=== PATIENT | female | born 1995 | race Caucasian/White ===

== ENCOUNTER 2019-06-18 16:18 | Emergency (ER) | payer BC, OTHER, SELFPAY ==
[2019-06-18 16:37] VITALS: BP 113/62; PULSE 92; RESP 18; TEMP 36.6; O2SAT 98
--- NOTE | 2019-06-18 17:06 | ED.GENADUL_ITS ---
Discharge Plan Disposition Patient Disposition: HOME Condition: Stable Discharge Details Chief Complaint: EyeProblem Clinical Impression: Stye Primary Care Provider: Lauri Tavarez ED Provider: Sury Young Discharge Instructions Instructions: Jameel (ED) Additional Instructions: Apply half-inch ribbon to the inside of the left lower eyelid 4 times daily for the next 5 days. Apply warm compresses to the left eye several times daily for 10 minutes at a time. Avoid any eye make-up to the left eye while symptoms still present. [facility] in [place] tomorrow morning to schedule follow-up appointment for reevaluation. Return to the emergency department if you develop any worsening or new concerning symptoms such as fever, headache or any worsening visual changes. Stand Alone Forms: Work Release Discharge Data Discharge Date/Time-TO BE ENTERED AT DEPARTURE: 06/18/19 18:35 Discharge Physician: Sury Young Medical Decision Making 23-year-old female who presents with left lower eyelid itching and irritation for the past 2 days. Also admits to tearing and blurry vision. Left eye 20/40. Right eye 20/25. She denies contacts or glasses. She denies any known injury, foreign body sensation, fever, headache, neck pain or pain within the eye. There appears to be a stye to the left lower eyelid with surrounding erythema on external aspect. No periorbital cellulitis, orbital cellulitis, fluctuance or induration. Eye itself appears normal to inspection with PERRLA, EOMI. No focal deficits. Will place erythromycin ointment within the left inner eyelid. She is instructed on warm compresses, avoiding make-up while symptoms present and to call [facility] tomorrow for follow-up appointment. She is advised to return here with any worsening or concerning symptoms. Medical Records Medical records reviewed: Yes I reviewed the patient's medical records. HPI General Mode of arrival: ambulatory . Date/Time Provider Initiated Documentation: 06/18/19 16:42 . Limitations to Documentation: no limitations . Information obtained by: patient . HPI Narrative: Patient is a 23-year-old female who presents with left lower eyelid itching and irritation for the past 2 days. She also admits to tearing and blurry vision. She denies wearing contacts and glasses. She denies known injury to the eye, fever, new make-up, soaps, lotions, detergents, shampoo, meds or any new exposures. She states initially it started with itching and now has become more irritation and tearing. She denies any headache or neck pain. Related Data Allergies Allergy/AdvReac Type Severity Reaction Status Date / Time No Known Drug Allergies Allergy Unverified 06/18/19 16:41 Penicillins AdvReac weird Unverified 06/18/19 16:46 feeling General Stated Complaint: EyeProblem JENNIFER: 3 Review of Systems Review of Systems ROS Unobtainable: All systems reviewed & are unremarkable except as noted in HPI and below Constitutional Constitutional: Reports as per HPI, Denies chills and Denies fever(s) Eyes Eyes: Reports blurry vision, Denies diplopia, Denies eye discharge, Reports irritation, Reports itchy eyes, Denies loss of peripheral vision, Reports eye pain, Denies seeing flashes, Denies photophobia and Denies spots in vision ENT Ears, Nose, Mouth, and Throat: Denies dizziness, Denies sore throat and Denies throat swelling Cardiovascular Cardiovascular: Denies chest pain and Denies dyspnea Respiratory Respiratory: Denies cough and Denies dyspnea Gastrointestinal Gastrointestinal: Denies abdominal pain, Denies diarrhea and Denies vomiting Genitourinary Genitourinary: Denies hematuria and Denies dysuria Musculoskeletal Musculoskeletal: Denies back pain and Denies numbness Integumentary/Breasts Skin/Breast: Denies lesions and Denies rash Neurologic Neurologic: Denies dizziness, Denies focal weakness and Denies numbness Allergic/Immunologic Allergic/Immunologic: Reports itchy eyes and Denies throat swelling [facility] Medical History GERD (gastroesophageal reflux disease) (Chronic) Josh-Schlatter's disease (Acute) Surgical History H/O section (Chronic) Social History Smoking/Tobacco Use Status: Current every day Alcohol Intake: never Drug use: Never Do you feel safe at home: Yes Do you feel safe in your relationship?: Yes Exam Const General: cooperative, healthy appearing and no acute distress HENMT Head: normal to inspection Ears: hearing grossly normal bilaterally and external ears normal General nose exam: external nose normal Face and sinus: normal facial exam Mouth: oral mucosae normal Eyes General: appearance normal, both eyes and all related structures Conjunctivae: conjunctival abnormality left conjunctival injection localized ( Left lower) Pupils: PERRL EOM: EOM intact bilaterally Eyes/upper lids images: 1. 3x3mm raised whitish papule located on inner lower eyelid with eversion. There is external erythema and edema. No open wounds, discharge. There is minimal conjunctival injection and tearing noted. No obvious foreign bodies noted. Neck Neck: normal visual inspection Resp Effort & Inspection: normal respiratory effort and able to speak in complete sentences Cardio Rate: regular rate Skin Rashes: no rashes Neuro General: alert, awake and oriented x3 Motor: muscle tone normal throughout Extrem General: normal to inspection and full ROM Psych Appearance: grossly normal Affect: normal affect Course Vital Signs Vital signs: Vital Signs Temperature 97.9 F 06/18/19 16:37 Pulse 92 H 06/18/19 16:37 Respiratory Rate 18 06/18/19 16:37 Blood Pressure 113/62 06/18/19 16:37 Pulse Oximetry 98 06/18/19 16:37 Temperature 97.9 F 06/18/19 16:37 Temperature Source Temporal Artery Scan 06/18/19 16:37 Pulse 92 H 06/18/19 16:37 Respiratory Rate 18 06/18/19 16:37 Respiratory Effort Non-Labored 06/18/19 16:41 Blood Pressure 113/62 06/18/19 16:37 Blood Pressure Position Sitting 06/18/19 16:37 Pulse Oximetry 98 06/18/19 16:37 Oxygen Delivery Method Room Air 06/18/19 16:37 Oxygen Flow Rate 0 06/18/19 16:37 Pain Level 5 06/18/19 16:37
[2019-06-18] MEDS: Erythromycin Ophth Oint 3.5 GM TUBE (18:29)
== END 2019-06-18 18:35 | disposition home or self-care (01) ==
PROVIDERS: Emergency Provider Physician Assistant; PCP Specialist/Technologist Athletic Trainer
DX: H00.015 Hordeolum externum left lower eyelid (principal)
CPT/HCPCS: 99283

== ENCOUNTER 2019-08-07 11:51 | Outpatient (REF) | payer BC, SELFPAY ==
[2019-08-07 21:56] LABS: Abs Immature Grans 0.02 k/cumm (0.0-0.09); Absolute Basophil Count 0.02 k/cumm (0.0-0.2); Absolute Eosinophil Count 0.05 k/cumm (0.0-0.7); Absolute Lymphocyte Count 2.29 k/cumm (1.2-3.4); Absolute Monocyte Count 0.64 k/cumm (0.11-0.7); Basophils % 0.3; Eosinophils % 0.6; HCT 43.9 % (36.0-46.0); HGB 14.8 g/dL (12.0-15.5); Immature Grans % 0.3; Lymphocytes % 28.9; Mean Corp. HGB Concentration 33.7 g/dL (32.0-36.0); Mean Corpuscular Hemoglobin 29.5 pg (27.0-33.0); Mean Corpuscular Volume 87.5 fL (80-95); Mean Platelet Volume 12.8 fL (8.0-11.0); Monocytes % 8.1; Neutrophils % 61.8; Platelet Count 164 x1000/uL (130-400); RBC 5.02 m/cumm (4.00-5.20); RBC Distribution Width 13.2 % (11.7-14.6); White Blood Cell Count 7.92 k/cumm (4.4-10.8)
[2019-08-07 22:18] LABS: ALT 29 U/L (14-59); AST 13 U/L (15-37); Albumin 4.2 g/dL (3.4-5.0); Alkaline Phosphatase 71 U/L (46-116); Anion Gap 8.3 mmol/L (3-11); BUN 13 mg/dL (7-18); Bilirubin, Total 0.2 mg/dL (0.2-1.0); CO2 27.7 mmol/L (21.0-32.0); Calcium 9.7 mg/dL (8.5-10.1); Chloride 102 mmol/L (98-107); Glucose 76 mg/dL (70-100); LDL CHOLESTEROL 138 mg/dL (<100); Potassium 4.4 mmol/L (3.5-5.1); Sodium 138 mmol/L (136-145); TSH (W/Ref FT4) 1.47 uIU/mL (0.36-3.74)
== END 2019-08-07 12:11 ==
LOC: NCHCN 11:51
PROVIDERS: PCP Specialist/Technologist Athletic Trainer; Visit Provider Specialist/Technologist Athletic Trainer
DX: Z00.00 Encounter for general adult medical examination without abnormal findings (principal); F39 Unspecified mood [affective] disorder; Z79.899 Other long term (current) drug therapy
CPT/HCPCS: 80053; 83721; 84443; 85025

== ENCOUNTER 2019-08-30 02:27 | Emergency (ER) | payer OTHER, SELFPAY ==
[2019-08-30 02:31] VITALS: BP 117/70; PULSE 92; RESP 16; TEMP 36.7; O2SAT 96
--- NOTE | 2019-08-30 02:37 | ED.GENADUL_ITS ---
Discharge Plan Disposition Patient Disposition: HOME Condition: Good Discharge Details Chief Complaint: Nk/Back Pain Clinical Impression: Low back strain Primary Care Provider: Lauri Tavarez ED Provider: Casey Rivers Meds and New Rx's Prescriptions: Continued buspirone 10 mg Tablet 10 mg PO BID RF: 0 cyclobenzaprine 10 mg Tablet 10 mg PO PRN PRNRF: 0 Discharge Instructions Instructions: Low Back Strain (ED) Additional Instructions: Activity as tolerated but avoid lifting, bending, twisting. Gentle stretching and use of ice over the next couple of days. Cyclobenzaprine if needed. Ibuprofen 600 mg every 6-8 hours for discomfort. Follow-up with occupational health. Return to ED if difficulty ambulating, weakness, numbness, bladder or bowel dysfunction. Stand Alone Forms: Work Release Referrals: Occupational Medicine [Outside] Medical Decision Making Patient's pain is better than when initial event occured. She is neurologically intact. Pain is left lower lumbar region and is probably muscular related. She has Flexeril to use for back spasm. Discussed ibuprofen, gentle stretching and follow-up with occupational health. Will limit work until follow-up and should avoid lifting, bending, twisting. Return to ED for difficulty ambulating, weakness, numbness, bladder or bowel dysfunction. HPI General Mode of arrival: ambulatory . Date/Time Provider Initiated Documentation: 08/30/19 02:36 . Limitations to Documentation: no limitations . Information obtained by: patient and RN notes reviewed . HPI Narrative: Patient presents to ED with left lower back pain. 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 She then went to push the bed back in and felt sudden pain in the left lower back radiating down the lateral thigh to the knee. Describes the pain as burning numbing. Was given 800 of ibuprofen. Has prior history of back spasms. Presents now for evaluation. Pain is better at this point. She has no numbness or weakness or difficulty ambulating. Related Data Home Medications Medication Instructions Recorded Confirmed buspirone 10 mg PO BID 08/30/19 08/30/19 cyclobenzaprine 10 mg PO PRN PRN 08/30/19 08/30/19 Allergies Allergy/AdvReac Type Severity Reaction Status Date / Time Penicillins AdvReac Intermediate Other (See Unverified 08/30/19 02:36 Comment) General Stated Complaint: Nk/Back Pain JENNIFER: 4 Review of Systems Narrative: As documented in HPI otherwise negative as below. Const: no fever, chills, weakness GI: no abdominal pain, nausea, vomiting, diarrhea Neuro: no headache, numbness, focal weakness, confusion PFSH Medical History Anxiety (Chronic) GERD (gastroesophageal reflux disease) (Chronic) Josh-Schlatter's disease (Acute) Surgical History H/O section (Chronic) Social History Smoking/Tobacco Use Status: Current every day Alcohol Intake: never Drug use: Never Do you feel safe at home: Yes Do you feel safe in your relationship?: Yes Exam Narrative Exam Narrative: Vitals: Afebrile. Normal heart rate and blood pressure. Normal room air pulse ox. Const: Obese female in NAD. HEENT: NC/AT. Normal facial exam. Eyes: Normal conjunctiva and sclera. Neck: Supple. Trachea midline. Lungs: Normal respiratory effort. Back: Tender left lower lumbar area. No obvious spasm. No spine tenderness. Good ROM. Neuro: A+O x 3. 5 out of 5 strength in lower extremities. Normal sensation. Normal gait. Ext: No C/C/E. Skin: Warm and dry without rash. Course Vital Signs Vital signs: Vital Signs Temperature 98.1 F 08/30/19 02:31 Pulse 92 H 08/30/19 02:31 Respiratory Rate 16 08/30/19 02:31 Blood Pressure 117/70 08/30/19 02:31 Pulse Oximetry 96 08/30/19 02:31 Temperature 98.1 F 08/30/19 02:31 Pulse 92 H 08/30/19 02:31 Respiratory Rate 16 08/30/19 02:31 Blood Pressure 117/70 08/30/19 02:31 Pulse Oximetry 96 08/30/19 02:31 Oxygen Delivery Method Room Air 08/30/19 02:31 Oxygen Flow Rate 0 08/30/19 02:31 Pain Level 6 08/30/19 02:31
== END 2019-08-30 02:59 | disposition home or self-care (01) ==
PROVIDERS: Emergency Provider Emergency Medicine; PCP Specialist/Technologist Athletic Trainer
DX: S39.012A Strain of muscle, fascia and tendon of lower back, initial encounter (principal); X50.0XXA Overexertion from strenuous movement or load, initial encounter; Y99.0 Civilian activity done for income or pay
CPT/HCPCS: 99282

== ENCOUNTER 2019-10-23 10:57 | Emergency (ER) | payer BC, OTHER, SELFPAY ==
[2019-10-23 11:00] VITALS: BP 123/76; PULSE 109; RESP 18; TEMP 36.7; O2SAT 96
--- NOTE | 2019-10-23 11:13 | ED.GENADUL_ITS ---
Discharge Plan Disposition Patient Disposition: HOME Condition: Stable Discharge Details Chief Complaint: Orthopedic Clinical Impression: Fracture of toe, Contusion of right foot Primary Care Provider: Lauri Tavarez ED Provider: Alisha Lovett Home Meds and New Rx's Prescriptions: Continued buspirone 10 mg Tablet 10 mg PO BID RF: 0 cyclobenzaprine 10 mg Tablet 10 mg PO PRN PRNRF: 0 ibuprofen 600 mg Tablet 600 mg PO PRN PRNRF: 0 Discharge Instructions Instructions: Crutch Instructions (ED), Toe Fracture (ED), Foot Contusion (ED) Additional Instructions: Please return immediately to the emergency department if you develop any new or worsening symptoms, if your condition does not improve as expected, or if you become otherwise concerned. It is extremely important that you call soon as possible to make an appointment to be seen in follow-up for this visit by your primary care doctor and an orthopedic surgeon. Referrals: Lauri Tavarez [Primary Care Provider] - Dennys Ortiz MD [ [facility] STAFF PHYSICIAN] - Medical Decision Making Isabel Julian is a 24-year-old woman with a history of GERD, anxiety who presented to the emergency department with right toe and foot pain that began last night when her niece fell on her foot. On exam patient is very well and nontoxic appearing. There is ecchymosis and edema of the right fifth toe. There is tenderness of toes 3 through 5 and the lateral aspect of the right fo ot. Toes/foot neurovascularly intact. No skin wound. Exam/history is not consistent with neurologic or vascular injury, DVT, pathology of the ankle or lower leg, other acute emergent life/limb threatening process. Concern for contusion versus fracture of toes/foot. Plan for x-ray. X-ray shows nondisplaced fracture of the phalanx of the fifth toe. Plan for postop shoe, crutches, orthopedic follow-up. Patient declines to have daniela taping. I had a lengthy discussion with Patient regarding return to emergency department precautions, home care, and importance of outpatient follow-up. Pt v erbalizes understanding of the plan and is amenable. Patient discharged to home with clear plan for outpatient follow-up. All questions were answered. Disposition decision was made weighing the risks and benefits of hospitalization versus outpatient treatment, the risk for further decompensation, and the patient's wishes. Medical Records Medical records reviewed: Yes I reviewed the patient's medical records. Imaging Data Radiologic Study: Attestation: I personally reviewed and interpreted this imaging study as follows: Radiologist's impression: Exam(s) a RAD:XR foot RT complete EXAM: XR FOOT RT COMPLETE INDICATION: trauma, lateral pain foot and toe pain (3-5). COMPARISON: No exams were available for comparison TECHNIQUE: 2D digital imaging was performed. FINDINGS: There is a nondisplaced fracture seen through the middle phalanx of the little toe which extends to the articular surface. The distal phalanx appears intact. IMPRESSION: Nondisplaced fracture of the middle phalanx of the 5th toe. HPI General Mode of arrival: ambulatory . Date/Time Provider Initiated Documentation: 10/23/19 11:08 . Limitations to Documentation: no limitations . Information obtained by: patient, RN notes reviewed and old records reviewed . HPI Narrative: Isabel Julian is a 24-year-old woman with a history of GERD, anxiety presenting to the emergency department with right-sided toe and foot pain. Patient reports that last night she was playing with her young niece, when her knees fell and landed on the lateral aspect of her right foot. Patient reports that she has had pain in the foot since the injury. She has been walking but with significant pain with weightbearing. Patient reports pain is in the lateral aspect of the right foot, also in the third through fifth toes. She reports worst pain is in the fifth toe. Pain does not radiate. She denies any other pain or injury. She denies any other symptoms, no recent illness. No other pain, no numbness, no weakness, no skin wound. Has been eating and drinking as usual. Related Data Home Medications Medication Instructions Recorded Confirmed buspirone 10 mg PO BID 08/30/19 10/23/19 cyclobenzaprine 10 mg PO PRN PRN 08/30/19 10/23/19 ibuprofen 600 mg PO PRN PRN 10/23/19 10/23/19 Allergies Allergy/AdvReac Type Severity Reaction Status Date / Time Penicillins AdvReac Intermediate Other (See Unverified 10/23/19 11:19 Comment) General Stated Complaint: Orthopedic JENNIFER: 3 Review of Systems Narrative: Constitutional: denies fevers Eyes: denies eye pain ENT: denies ear pain, dental pain, sore throat Cardiovascular: denies chest pain Respiratory: denies SOB, cough GI: denies abdominal pain, vomiting, diarrhea : denies flank pain MSK: denies back pain, neck pain, reports right foot and toe pain as per HPI Skin: denies rash Neuro: denies headaches, numbness, weakness [facility] Medical History Anxiety (Chronic) GERD (gastroesophageal reflux disease) (Chronic) Josh-Schlatter's disease (Acute) Social History Smoking/Tobacco Use Status: Current every day Alcohol Intake: never Drug use: Never Seatbelt use: sometimes Do you feel safe at home: Yes Do you feel safe in your relationship?: Yes Exam Narrative Exam Narrative: Constitutional: well and [id number], pleasant, conversing normally HENT: head atraumatic/normocephalic/normal inspection, mucous membranes moist Eyes: conjunctiva normal, sclera normal, pupils 3mm b/l Neck: no stridor, normal ROM, trachea midline Chest: normal inspection Resp: normal work of breathing Cardio: normal rate, normal rhythm Skin: warm, dry, normal color, no rash Neuro: alert, not altered, grossly non-focal, normal tone Ext: no edema, right lateral rounding machine tender to palpation, right MTP 3 through 5 tender to palpation, toes 3 through 5 tender to palpation diffusely, right fifth toe with medial ecchymosis, mild edema. Range of motion of toes limited secondary to pain. Brisk cap refill, normal sensation all toes. Normal exam of toes 1 and 2, heel, medial/plantar/dorsal aspects of foot, ankle, lower leg. No edema of the ankle or lower leg. DP pulse intact. Psych: normal mood, normal affect, normal behavior Course Vital Signs Vital signs: Vital Signs Temperature 36.7 C 10/23/19 11:00 Pulse 109 H 10/23/19 11:00 Respiratory Rate 18 10/23/19 11:00 Blood Pressure 123/76 10/23/19 11:00 Pulse Oximetry 96 10/23/19 11:00 Temperature 36.7 C 10/23/19 11:00 Temperature Source Temporal Artery Scan 10/23/19 11:00 Pulse 109 H 10/23/19 11:00 Respiratory Rate 18 10/23/19 11:00 Blood Pressure 123/76 10/23/19 11:00 Pulse Oximetry 96 10/23/19 11:00 Oxygen Delivery Method Room Air 10/23/19 11:00 Oxygen Flow Rate 0 10/23/19 11:00 Pain Level 10 10/23/19 11:00
--- NOTE | 2019-10-23 11:45 | DI.RAD_ITS ---
EXAM: XR FOOT RT COMPLETE INDICATION: trauma, lateral pain foot and toe pain (3-5). COMPARISON: No exams were available for comparison TECHNIQUE: 2D digital imaging was performed. FINDINGS: There is a nondisplaced fracture seen through the middle phalanx of the little toe which extends to t he articular surface. The distal phalanx appears intact. IMPRESSION: Nondisplaced fracture of the middle phalanx of the 5th toe.
[2019-10-23 12:44] VITALS: BP 98/66; PULSE 90; TEMP 36.6; O2SAT 99
== END 2019-10-23 12:46 | disposition home or self-care (01) ==
LOC: ER 13:00
PROVIDERS: Emergency Provider Student in an Organized Health Care Education/Training Program; PCP Specialist/Technologist Athletic Trainer
DX: S92.524A Nondisplaced fracture of middle phalanx of right lesser toe(s), initial encounter for closed fracture (principal); W50.0XXA Accidental hit or strike by another person, initial encounter
CPT/HCPCS: 28510; 73630; E0114

== ENCOUNTER 2020-06-13 14:30 | Outpatient (REF) | payer BC, OTHER, SELFPAY ==
[2020-06-13 21:05] LABS: Abs Immature Grans 0.03 10^3/uL (0.0-0.06); Absolute Basophil Count 0.03 10^3/uL (0.0-0.2); Absolute Eosinophil Count 0.09 10^3/uL (0.0-0.7); Absolute Lymphocyte Count 2.49 10^3/uL (1.2-3.4); Absolute Monocyte Count 0.69 10^3/uL (0.1-0.8); Basophils % 0.3; HGB 15.1 g/dL (11.2-15.7); Immature Grans % 0.3; Lymphocytes % 28.5; MCH 29.8 pg (27.0-33.0); MCHC 32.8 % (32.0-36.0); MCV 90.7 fL (80-95); MPV 13.5 fL (8.0-11.0); Monocytes % 7.9; Nucleated RBC 0 %; Platelet Count 137 10^3/uL (130-400); RBC 5.07 10^6/uL (3.93-5.22); RDW 12.5 % (11.7-14.6); RDW-SD 41.1 fL; WBC 8.73 10^3/uL (4.4-10.8)
[2020-06-13 21:38] LABS: ALT 25 U/L (14-59); AST 12 U/L (15-37); Albumin 4.1 g/dL (3.4-5.0); Alkaline Phosphatase 59 U/L (46-116); Anion Gap 8.1 mmol/L (3-11); BUN 9 mg/dL (7-18); Bilirubin, Total 0.2 mg/dL (0.2-1.0); CO2 25.9 mmol/L (21.0-32.0); CREATININE 0.84 mg/dL (0.55-1.02); Calcium 8.9 mg/dL (8.5-10.1); Chloride 105 mmol/L (98-107); Ferritin 47 ng/mL (8-252); Glucose 84 mg/dL (74-106); Sodium 139 mmol/L (136-145); Total Protein 7.4 g/dL (6.4-8.2)
[2020-06-13 22:04] LABS: Iron 80 ug/dL (50-170)
== END 2020-06-13 14:50 ==
LOC: NCHCN 14:30
PROVIDERS: PCP Specialist/Technologist Athletic Trainer; Visit Provider Family Medicine
DX: F41.9 Anxiety disorder, unspecified (principal); J45.20 Mild intermittent asthma, uncomplicated
CPT/HCPCS: 80053; 82728; 83540; 85025

== ENCOUNTER 2020-10-31 16:25 | Emergency (ER) | payer SELFPAY ==
[2020-10-31 16:30] VITALS: BP 114/74; PULSE 93; TEMP 36.9; O2SAT 97
--- NOTE | 2020-10-31 16:45 | DI.RAD_ITS ---
EXAM: XR PORTABLE CHEST AP CLINICAL HISTORY: PUI, Cough TECHNIQUE: 2D digital imaging was performed. COMPARISON: No exams were available for comparison FINDINGS: MEDIASTINUM: Normal. HEART: Normal. PULMONARY VASCULATURE: Normal. LUNGS: Clear. PLEURAL SPACE: No pleural effusion or pneumothorax. BONE:Within normal limits for the patient's age. OTHER FINDINGS:Normal. IMPRESSION: No acute pulmonary findings. DATA REPOSITORY: RADIATION DOSE DELIVERED:
--- NOTE | 2020-10-31 16:54 | W.ED.GENAD ---
Discharge Plan Disposition Patient Disposition: HOME Condition: Stable Discharge Details Clinical Impression: Sialadenitis Primary Care Provider: Melody Koenig ED Provider: Sarai Dueñas Home Meds and New Rx's Prescriptions: New clindamycin HCl 300 mg capsule 300 mg PO BID 7 Days Qty: 14 RF: 0 No Action buspirone 10 mg Tablet 10 mg PO BID RF: 0 ibuprofen 600 mg Tablet 600 mg PO PRN PRNRF: 0 Discharge Instructions Instructions: Sialoadenitis (ED) Additional Instructions: Gargle with warm salt water, suck on hard sour candies such as lemon heads. Warm compresses and massage may help. Take antibiotic as prescribed. Follow up with primary care provider in 3-5 days. Return to ED sooner if any worsening or concerns. Increase oral fluids. Please take Tylenol or Ibuprofen with food every 4-6 hours as needed for pain and swelling. You are placed on a care management follow-up list to assist you with obtaining a PCP and follow-up appointment they can also help with any kind of financial concerns you may have. Your chest x-ray was within normal limits today. Covid is pending please quarantine until results is back. Stand Alone Forms: PENDING COVID-19 TESTING, Work Release Referrals: Melody Koenig [Primary Care Provider] - Discharge Data Discharge Date/Time-TO BE ENTERED AT DEPARTURE: 10/31/20 18:13 Medical Decision Making At this time we will do a [id number] rapid strep swab and Covid send out. Chest x-ray to rule out pneumonia or other cardiopulmonary abnormality. POC rapid strep negative, Covid is pending. Imaging protocol: XR of the chest Views: 1 view. COMPARISON: No relevant prior studies available. FINDINGS: Lungs: The lungs are clear without opacity or suspicious parenchymal finding. Pleural spaces: Unremarkable. No pleural effusion. No pneumothorax. Heart/Mediastinum: Unremarkable. No cardiomegaly. Bones/joints: Unremarkable. IMPRESSION: No acute cardiopulmonary process. Thank you for allowing us to participate in the care of your patient. Dictated and Authenticated by: Yocasta Fry MD At this time findings are most consistent with sialadenitis versus parotiditis. Clindamycin was given here in department and prescribed for 10 days. Urinalysis shows moderate leukocytes greater than 50 WBCs however many epithelial cells and moderate trichomonas. It is not indicated for culture at this time due to squamous contamination. Call made to patient and prescription given for Flagyl due to trichomonas noted in urine. 1928: Spoke with patient and discussed trichomonas result, sexual abstinence until partner tested and treated, and re-encouraged follow up with PCP. Chidi/chlamydia requested to be added onto Urine in lab, howver this is not possible with the current specimen. Flagyl 2gm PO and Azithromycin 1 gm PO called in to [facility] in [facility]. HPI General Mode of arrival: ambulatory. Date/Time Provider Initiated Documentation: 10/31/20 16:33. Limitations to Documentation: no limitations. Information obtained by: patient. HPI Narrative: 25-year-old female presents to the ED with chief complaint of left-sided throat, jaw, ear pain and productive cough for the last 3 days. She denies any fever. She states that she has some sinus trouble. She is a daily smoker and is concerned for possible Covid. 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 On initial exam she has some submandibular swelling and tenderness noted, no erythema, she also has any swelling noted to the bottom of her tongue, no dental abscess visualized nor any palpable area of fluctuance noted. Posterior oropharynx, erythemic, no exudate noted. She also has some anterior cervical lymphadenopathy to palpation. Lungs are clear to auscultation bilaterally. Related Data Home Medications Medication Instructions Recorded Confirmed buspirone 10 mg PO BID 08/30/19 10/31/20 ibuprofen 600 mg PO PRN PRN 10/23/19 10/31/20 clindamycin HCl 300 mg PO BID 7 Days #14 cap 10/31/20 Previous Rx's Medication Instructions Recorded clindamycin HCl 300 mg PO BID 7 Days #14 cap 10/31/20 Allergies Allergy/AdvReac Type Severity Reaction Status Date / Time Penicillins AdvReac Intermediate Other (See Unverified 10/31/20 17:03 Comment) General Stated Complaint: Sorethroat JENNIFER: 3 Review of Systems Narrative: Constitutional: Negative for weight loss, alert and oriented, well groomed, obese body habitus, appears comfortable. Denies fever. HEENT: Denies trauma, blurry vision, trouble swallowing. Positive sinus headache, runny nose, left-sided ear pain and left sided throat pain x2 weeks. Chest: Denies chest pain, palpitations, irregular rhythm, hypertension. Respiratory: Denies Shortness of breath, hemoptysis. Positive cough productive of green or yellow sputum. Patient is a smoker. GI: Denies abdominal pain, nausea, vomiting, diarrhea, constipation. : Denies dysuria, hematuria, flank pain, rectal bleeding. Neuro: Denies dizziness, blurry vision, weakness, syncope, headache or facial numbness. Hematologic: Denies easy bruising, intolerance to heat or cold, hair loss. [facility] Medical History Anxiety GERD (gastroesophageal reflux disease) Coulters-Schlatter's disease Surgical History H/O section Social History Smoking/Tobacco Use Status: Current every day Tobacco Type: cigarettes Smoking risk assessment performed?: Yes Alcohol Intake: never Drug use: Never Substance use type: does not use Seatbelt use: sometimes Do you feel safe at home: Yes Do you feel safe in your relationship?: Yes Exam Narrative Exam Narrative: Constitutional: Alert and oriented x3. Appears stated age. Obese body habitus. Head: Normocephalic, no trauma. Eyes: Pupils PERRLA, Red reflex noted, EOM's intact. Eyelids symmetrical without lesions, discharge, or swelling. ENT: Bilateral TM's WNL, External ear normal to inspection, no mastoid TTP, swelling, or erythema, Nasal turbinates boggy, no nasal discharge. Poor dentition, Posterior pharynx erythemic, no exudate. Does have some left-sided submandibular swelling tender to palpation, does have some anterior cervical lymphadenopathy with palpation. No dental abscess visualized, no area of fluctuance palpated, does have some subungual swelling noted to the left side and is tender to palpation. Chest: RRR, Normal S1, S2, distal pulses intact. Resp: Lungs clear to auscultation bilaterally, no wheezes, rales, or rhonchi. Musculoskeletal: Normal gait, 5/5 strength to all four extremities. Skin: No suspicious rashes or lesions. Capillary refill less than 2 sec. Neurologic: Cranial nerves II-XII intact. Alert and oriented x 3. DTR's intact. Hematologic/Lymphatic: No ecchymosis. [facility] Face images: 1. Swelling, tenderness with palpation. Mouth: oral mucosa abnormal other (Mild subungual tenderness and swelling with palpation) Course Vital Signs Vital signs: Vital Signs Temperature 36.9 C 10/31/20 16:30 Pulse 93 H 10/31/20 16:30 Blood Pressure 114/74 10/31/20 16:30 Pulse Oximetry 97 10/31/20 16:30 Temperature 36.9 C 10/31/20 16:30 Temperature Source Temporal Artery Scan 10/31/20 16:30 Pulse 93 H 10/31/20 16:30 Respiratory Effort Non-Labored 10/31/20 16:35 Blood Pressure 114/74 10/31/20 16:30 Blood Pressure Position Sitting 10/31/20 16:30 Pulse Oximetry 97 10/31/20 16:30 Oxygen Delivery Method Room Air 10/31/20 16:30 Oxygen Flow Rate 0 10/31/20 16:30 Pain Level 6 10/31/20 16:30
[2020-10-31 17:13] LABS: Bilirubin Negative (Negative); Blood Negative (Negative); Clarity Sl Cloudy (Clear); Glucose Negative (Negative); Ketones Negative (Negative); Leukocyte Esterase Moderate (Negative); Nitrite Negative (Negative); Specific Gravity >= 1.030 (1.005-1.025); Urobilinogen 0.2 EU/dL (Up TO 0.2); pH 5.5 (5-8)
--- NOTE | 2020-10-31 17:38 | DI.VRAD_ITS ---
PROCEDURE INFORMATION: Exam: XR Chest, 1 View Exam date and time: 10/31/2020 4:55 PM Age: 25 years old Clinical indication: Cough TECHNIQUE: Imaging protocol: XR of the chest Views: 1 view. COMPARISON: No relevant prior studies available. FINDINGS: Lungs: The lungs are clear without opacity or suspicious parenchymal finding. Pleural spaces: Unremarkable. No pleural effusion. No pneumothorax. Heart/Mediastinum: Unremarkable. No cardiomegaly. Bones/joints: Unremarkable. IMPRESSION: No acute cardiopulmonary process. Dictated and Authenticated by: Yocasta Fry MD. Ordering:NUBIA Moon MD
[2020-10-31 17:43] LABS: Epithelial Cells Many HPF (Negative); RBC Negative HPF (0-2); WBC >50 HPF (0-5)
[2020-10-31 17:44] LABS: Bacteria Many HPF (Negative); C & S Indicated? No/Sq. Contamination; Casts Negative LPF (Negative); Crystals Negative HPF (Negative); Mucus Moderate (Negative)
[2020-10-31] MEDS: Acetaminophen 500 MG TAB PO (18:08)
[2020-10-31] MEDS: Clindamycin 300 MG CAP 600 MG PO (18:09)
[2020-10-31] MEDS: Clindamycin 300 MG CAP PO (18:09)
[2020-11-01 18:22] LABS: COVID-19 RT-PCR UVMMC Result Negative (Negative)
--- NOTE | 2020-11-04 18:09 | NUR.NOTE ---
patient called aned negative covid results relayed to her after verification of her identity.
== END 2020-10-31 18:13 | disposition home or self-care (01) ==
PROVIDERS: Emergency Provider Registered Nurse Emergency; PCP Family Medicine
DX: K11.21 Acute sialoadenitis (principal); R05 Cough; F17.210 Nicotine dependence, cigarettes, uncomplicated; Z03.818 Encounter for observation for suspected exposure to other biological agents ruled out
CPT/HCPCS: 81025; 87880; 99283; U0003; 71045; 81003; 81015; 87081; 99284

== ENCOUNTER 2020-11-15 12:41 | Outpatient (REF) | payer SELFPAY ==
--- NOTE | 2020-11-15 11:10 | PAPFT_PTH ---
PATIENT: Isabel Prakash LOC: [facility] U#:[id number] AGE/SX: 25/F ROOM: RE11/15/[address]: Melody Koenig : 1995 BED: DIS: 11/15/2020 SPEC #: [id number] RECD: 11/15/20 12:54 STATUS: DALJIT REStephanie #: [id number] YOANA: 11/15/20 11:[address]: Melody Koenig DEPT: [facility] Cytology RECD BY: Yue Dalal Tissues: 1 - CX/ENDOCX FOR PAP SMEARS Procedures: PAP THIN PREP/UVM Screening Comments: [id number] (CHLAMYDIA/GC)
--- OUTSIDE RECORDS SUMMARY | 2020-11-15 12:45 | XMS_ITS ---
:1995 [facility] Address [address] [place] [address] Care Team Providers Name Role Phone Lab or DI, Non [facility] Unavailable Unavailable PROBLEMS Unknown Problems ALLERGIES Substance Reaction Event Type Date Status black flies Unknown Non Drug Allergy Jun, Active ENCOUNTERS Encounter Location Date Diagnosis [address] Jul, [place] [address] OR[facility] OFF[facility] [address] [place] [address] Jun, Wrist pain, right [address]25[address] [place] [address] [address] [place] [address] Apr, [place] [address] IMMUNIZATIONS No Known Immunizations SOCIAL HISTORY Never Assessed REASON FOR REFERRAL FUNCTIONAL STATUS PLAN OF CARE VITAL SIGNS MEDICATIONS Medication Instructions Dosage Frequency Start End Duration Statu s Date Date HydrOXYzine HCl 25 Orally every 8 1 tablet as 8h 30 day(s) Active MG hrs needed Fluticasone Nasally Once a 1 spray in 24h 30 day(s) Active Propionate 50 day each MCG/ACT nostril Depo-Provera 150 1 ml 30 day(s) Activ e MG/ML Medrol 4 MG as directed Jun, Melatonin 5 MG Orally Once a 2 tablets 24h A ctive day at bedtime Cyclobenzaprine Orally Once a 1 tablet at 24h 30 day (s) Active HCl 10 MG day bedtime as needed Ibuprofen 800 MG Orally Three 1 tablet 8h A ctive times a day with food or milk as needed ZyrTEC Allergy 10 Orally Once a 1 tablet 24h 30 day( s) Active MG day PROCEDURES No Known procedures RESULTS Name Result Date Reference Range ELHAM (Antinuclear Abs) 2020-08-14 ANTINUCLEAR ANTIBODIES, IFA Positive HOMOGENEOUS PATTERN 1:80 NUCLEOLAR PATTERN SPECKLED PATTERN CENTROMERE PATTERN CYCLIC CITRULLINATED PEPTIDE (CCP3) IGG ABS 2019 CCP ANTIBODIES IGG/IGA 21 0-19 CRP-INFLAM 2020-08-14 CRP <0.2 0.0-0.9 LYME IGG & IGM ABS W/REFLEX 2020-08-14 Lyme IgG/IgM Ab <0.91 0.00-0.90 Lyme Disease Ab, Quant, IgM <0.80 0.00 -0.79 RHEUMATOID FACTOR TITER 2020-08-14 RA LATEX TURBID. <10.0 0.0-13.9 SED RATE 2020-08-14 ESR 22 0-30 MULTIPLE LABS 2020-06-[address] Boucher, carpal tunel syndrome (R) referral done, Pt states during 07/09 ED visit for headache that ED DR stated pt has wrist tendonitis-sd, possible infection, no response to letter inactivating, and addressed Insurance Providers [facility] Member Patient Patient Patient Patient Patient Subscriber Subscriber Subscriber Group Insurance Plan Plan Plan Plan ID Relationship Address Phone Name Date of ID Name Date of No Type Insurance Insurance Insurance Coverage to Subscriber Address Phone Name Dates SELF PAY [address] SELF PAY self DENISE 1995 [place] [id number] INSURANCE UNITED [address] [place] [id number] HEALTHCARE [id number] [facility] [id number] SELF PAY [address] SELF PAY self DENISE 1995 [place] [id number] INS MEDICAL (GENERAL) HISTORY Type Description Date Medical History Anxiety Medical History PTSD Medical History Fatigue Surgical History No Surgical history information
[2020-11-18 15:28] LABS: Chlamydia Result Negative (Negative); GC Result Negative (Negative)
== END 2020-11-15 12:42 | disposition home or self-care (01) ==
LOC: NCHCN 12:41
PROVIDERS: PCP Family Medicine; Visit Provider Family Medicine
DX: Z11.3 Encounter for screening for infections with a predominantly sexual mode of transmission (principal); Z12.4 Encounter for screening for malignant neoplasm of cervix; Z00.00 Encounter for general adult medical examination without abnormal findings; Z01.419 Encounter for gynecological examination (general) (routine) without abnormal findings
CPT/HCPCS: 87491; 87591; 88142

== ENCOUNTER 2021-05-28 12:11 | Outpatient (REF) | payer OTHER, SELFPAY ==
[2021-05-28 14:11] LABS: Abs Immature Grans 0.03 10^3/uL (0.0-0.06); Absolute Basophil Count 0.03 10^3/uL (0.0-0.2); Absolute Eosinophil Count 0.05 10^3/uL (0.0-0.7); Absolute Lymphocyte Count 2.17 10^3/uL (1.2-3.4); Absolute Monocyte Count 0.58 10^3/uL (0.1-0.8); Absolute Neutrophil Count 4.26 10^3/uL (1.2-6.7); Basophils % 0.4; Eosinophils % 0.7; HCT 44.5 % (36.0-46.0); HGB 14.8 g/dL (11.2-15.7); Immature Grans % 0.4; Lymphocytes % 30.5; MCHC 33.3 % (32.0-36.0); MCV 90.1 fL (80-95); MPV 12.9 fL (8.0-11.0); Monocytes % 8.1; Neutrophils % 59.9; Nucleated RBC 0 %; Platelet Count 128 10^3/uL (130-400); RBC 4.94 10^6/uL (3.93-5.22); RDW 12.3 % (11.7-14.6); WBC 7.12 10^3/uL (4.4-10.8)
== END 2021-05-28 12:12 | disposition home or self-care (01) ==
LOC: NCHCN 12:11
PROVIDERS: PCP Family Medicine; Visit Provider Family Medicine
DX: R19.7 Diarrhea, unspecified (principal)
CPT/HCPCS: 85025

== ENCOUNTER 2021-08-29 01:57 | Outpatient (CLI) | payer SELFPAY ==
[2021-08-29 12:35] VITALS: BP 111/70; PULSE 96; RESP 16; TEMP 37.4; O2SAT 97
[2021-08-29] MEDS: Normal Saline Flush 10 ML SYR IVP (12:46)
[2021-08-29] MEDS: Normal Saline 500 ML 30 ML IV (13:10)
[2021-08-29 13:15] VITALS: BP 105/70; PULSE 81; RESP 16; TEMP 37.4; O2SAT 96
[2021-08-29 13:45] VITALS: BP 111/77; PULSE 74; RESP 16; TEMP 38.9; O2SAT 97
[2021-08-29 14:10] VITALS: BP 129/80; PULSE 85; RESP 16; TEMP 37.9; O2SAT 97
== END 2021-08-29 01:58 | disposition home or self-care (01) ==
PROVIDERS: PCP Family Medicine; Visit Provider Family Medicine
DX: U07.1 COVID-19 (principal)
CPT/HCPCS: 96365

== ENCOUNTER 2021-10-20 15:25 | Emergency (ER) | payer SELFPAY ==
[2021-10-20 15:29] VITALS: BP 152/90; PULSE 93; RESP 14; TEMP 36.8; O2SAT 99
--- NOTE | 2021-10-20 15:45 | DI.RAD_ITS ---
Exam(s) XR FOOT RT COMPLETE EXAM: XR FOOT RT COMPLETE CLINICAL HISTORY: rotational injury. TECHNIQUE: 2D digital imaging was performed. COMPARISON: CR XR FOOT RT COMPLETE from 10/23/2019 FINDINGS: No evidence of acute fracture nor diastasis of the Lisfranc joint. The more medial of the 2 hallucis sesamoids is bipartite. No pes planus. No degenerative changes. No osseous lesions nor erosions. No osseous tarsal coalition. IMPRESSION: DATA REPOSITORY: RADIATION DOSE DELIVERED:
--- NOTE | 2021-10-20 15:45 | DI.RAD_ITS ---
Exam(s) XR ANKLE RT COMPLETE EXAM: XR ANKLE RT COMPLETE CLINICAL HISTORY: diffuse pain after rotational injury. TECHNIQUE: 2D digital imaging was performed. COMPARISON: No exams were available for comparison FINDINGS: No fracture or widening of the mortise. Talar dome unremarkable. Malleoli unremarkable. Bone density normal. No osseous lesions. No tarsal coalition IMPRESSION: No fracture evident DATA REPOSITORY: RADIATION DOSE DELIVERED:
[2021-10-20] MEDS: Acetaminophen 500 MG TAB 1000 MG PO (16:08)
[2021-10-20 16:46] VITALS: BP 120/78; PULSE 85; TEMP 37; O2SAT 98
--- NOTE | 2021-10-20 17:09 | ED.GENADUL_ITS ---
Discharge Plan Disposition Patient Disposition: HOME Condition: Good Discharge Details Clinical Impression: Ankle sprain Primary Care Provider: Melody Koenig ED Provider: Dipika Magana Home Meds and New Rx's Prescriptions: Continued ibuprofen 600 mg Tablet 600 mg PO PRN PRNRF: 0 Discharge Instructions Instructions: Ankle Sprain (ED) Additional Instructions: Your imaging is reassuring. There is no evidence of fracture at this time. History is concerning for ankle sprain. Boot temporarily to help with pain. As we discussed, as the pain comes down you may transition to ankle brace. As you have had multiple sprains in the past, I am concerned for weakness and feel that you will benefit from physical therapy. REferral is attached, please call to set up apointment. Encourage rest, ice, elevation. Tylenol and/or Ibuprofen as needed for discomfort. If you develop any new/worsening symptoms please seek care urgently once again. Stand Alone Forms: Physical Therapy Referral Referrals: Melody Koenig [Primary Care Provider] - Discharge Data Discharge Date/Time-TO BE ENTERED AT DEPARTURE: 10/20/21 17:35 Medical Decision Making Patient is a 26 year old female presenting today with c/c of right ankle pain. She states that she suffered two rotational injuries over the weekend. Reports that this has happened several times inthe past, particularly along the contralateral side. states she has typically saught care at another ED forr this. She reports that when she injured herself they were internal rotational events. Has fairly diffuse pain. Denies other injury at the time of the incident. Has not had surgery or suffered fx with this in the past. Typically wears boot and weans out of this at home, has not tried PT or had formal f/u for this per pt report. On exam, patient appears nontoxic. She has no sigifcnat swelling to the left ankle. She is diffusely tender, maximal over lateral malleolus and ATFL. Achilles intact. No pain over the proximal fibula. She is tender into the foot at the 5th metatarsal as well as the midfoot. No swelling, discoloration or ev idence of objective trauma. 2+ distal pulses, sensation intact. No pain on plantar surface. Plan for images, including weighted view of the foot, to evaluate for any bony abnormaltiy of the foot/ankle. Will give APAP for pain, she has already used NSAID. XR reviewed by radiologist. Patiend did need to go back for weighted view as this was initially not completed. FINDINGS: No fracture or widening of the mortise. Talar dome unremarkable. Malleoli unremarkable. Bone density normal. No osseous lesions. No tarsal coalition IMPRESSION: No fracture evident FINDINGS: No evidence of acute fracture nor diastasis of the Lisfranc joint. The more medial of the 2 hallucis sesamoids is bipartite. No pes planus. No degenerative changes. No osseous lesions nor erosions. No osseous tarsal coa lition. Discussed findings with the patient. Encouraged RICE. We discussed options for supportive device in the acute period. I am concerned that her repetative use of the boot may be contributing to the relative weakness of her ankles and frequent reinjury. However, patient reports that other devices have not worked and that she needs a boot. I advised we can do this again but that she should be focusing on strengthening to prevent rreinjury. Will refer to PT and have asked that she discuss this further with her PCP. I also expressed concern for other boot associated discomfort associated with antalgic gait. She does not have boot at home for this side. Return precuations discussed. All of her quesitons and concerns were addressed, she is in agreement with this plan. HPI General Mode of arrival: ambulatory . Date/Time Provider Initiated Documentation: 10/20/21 15:48 . Limitations to Documentation: no limitations . Information obtained by: patient and RN notes reviewed . History of Present Illness 26 year old F presents to the emergency department with the chief complaint of right ankle and foot pain, described as severe, with intensity rated at 8. Quality is described as aching, and is localized to the right and lower extremity. Patient reports no radiation. Patient started experiencing this day(s) (2) and it has been constant. Immobilization imp roves symptom(s), Movement worsens symptoms . Patient notes no other symptoms.. Patient did receive the following treatments prior to arrival, NSAID Related Data Home Medications Medication Instructions Recorded Confirmed ibuprofen 600 mg PO PRN PRN 10/23/19 10/20/21 Allergies Allergy/AdvReac Type Severity Reaction Status Date / Time varicella virus vaccine live Allergy Unverified 10/20/21 15:32 Penicillins AdvReac Intermediate Other (See Unverified 10/20/21 15:32 Comment) General Stated Complaint: Orthopedic JENNIFER: 4 Review of Systems Constitutional Constitutional: Reports as per HPI, Denies chills, Denies fever(s) and Denies weakness Musculoskeletal Musculoskeletal: Reports as per HPI and Denies tingling Integumentary/Breasts Skin/Breast: Reports as per HPI, Denies rash and Denies wounds Neurologic Neurologic: Reports as per HPI, Denies tingling, Denies paresthesias and Denies weakness PFSH All Active Problems (Updated 10/20/21 @ 17:10 by BRIDGETT Ibrahim) Ankle sprain (Acute) Lumbar strain (Acute) Medical History (Updated 10/20/21 @ 17:10 by BRIDGETT Ibrahim) Anxiety GERD (gastroesophageal reflux disease) Josh-Schlatter's disease Surgical History H/O section Social History Smoking/Tobacco Use Status: Current every day Tobacco Type: cigarettes Smoking risk assessment performed?: Yes Alcohol Intake: current Alcohol Intake frequency: holidays/special occasions only Drug use: Never Substance use type: does not use Seatbelt use: sometimes Do you feel safe at home: Yes Do you feel safe in your relationship?: Yes Exam Const General: cooperative, healthy appearing, comfortable, no acute distress, well developed and well groomed Nutritional Appearance: well nourished and obese Orientation: alert and awake Resp Effort & Inspection: normal respiratory effort, able to speak in complete sentences and no respiratory distress Cardio Rate: regular rate Rhythm: regular rhythm Skin General skin exam: no rashes or lesions noted Lesions: no lesions Rashes: no rashes Trauma: no lacerations or abrasions Neuro General: patient alert and patient awake Cognition: normal cognition Speech: speech normal Gait: antalgic Motor: muscle tone normal throughout Sensory Exam: no sensory deficits noted Extrem Left lower extremity: normal to inspection, full ROM, normal capillary refill, no joint enlargement, knee (no pain over the proximal fibula) Details: normal to inspection, lower leg Details: normal to inspection and no edema; no tenderness, no localized swelling, no palpable cords, no ecchymosis and no deformity, ankle Details: normal to inspection, tenderness Location: of the lateral malleolus, of the medial malleolus and of the anterior talofibular ligament; not of the achilles tendon, no edema and normal ROM; no swelling, no warmth, no abrasions, no lacerations, no ecchymosis and achilles tendon exam normal and foot Details: normal capillary refill, tenderness Location: of the mid foot and of the base of the 5th metatarsal, toes with normal ROM, no edema, vascular exam Details: dorsalis pedis pulse present, posterior tibial pulse present and normal capilla ry refill and motor-sensory exam Details: light-touch normal; no unusual warmth, no ecchymosis and no crepitus Psych Appearance: grossly normal and well kempt Mental Status: mental status grossly normal Speech and Movement: speech and movement normal Course Vital Signs Vital signs: Vital Signs Temperature 36.8 C 10/20/21 15:29 Pulse 93 H 10/20/21 15:29 Respiratory Rate 14 10/20/21 15:29 Blood Pressure 152/90 H 10/20/21 15:29 Pulse Oximetry 99 10/20/21 15:29 Temperature 37.0 C 10/20/21 16:46 Temperature Source Tympanic 10/20/21 16:46 Pulse 85 10/20/21 16:46 Respiratory Rate 14 10/20/21 15:29 Respiratory Effort Non-Labored 10/20/21 15:33 Blood Pressure 120/78 10/20/21 16:46 Blood Pressure Position Sitting 10/20/21 15:29 Pulse Oximetry 98 10/20/21 16:46 Oxygen Delivery Method Room Air 10/20/21 16:46 Oxygen Flow Rate 0 10/20/21 16:46 Pain Level 8 10/20/21 16:46 Lab/Test Results Lab/Test Results: POC- Test(urine) Negative PAWSS Have you Been Recently Intoxicated or Drunk Within the Last 30 days?: Yes Have you Ever Experienced Previous Episodes of Alcohol Withdrawal?: No Have you ever Experienced Withdrawal Seizures?: No Have you ever Experienced Delirium Tremens(DT)s?: No Have you ever undergone Alcohol Rehabilitation Treatment (i.e, inpt ot outpatient treatment programs)?: No Have you ever Experienced Blackouts?: No Have you ever Combined Alcohol with other Downers within the last 90 days?: No Have you ever Combined Alcohol with any other Substance of Abuse during the last 90 days?: No Positive Blood Alcohol level on Presentation? [PCS.BAL]: No Evidence of Increased Autonomic Activity (i.e. HR>120, tremor, sweating, agitation, nausea)?: No Result: 1
== END 2021-10-20 17:35 | disposition home or self-care (01) ==
PROVIDERS: Emergency Provider Physician Assistant; PCP Family Medicine
DX: S93.491A Sprain of other ligament of right ankle, initial encounter (principal); X50.1XXA Overexertion from prolonged static or awkward postures, initial encounter
CPT/HCPCS: 29515; 81025; 99284; 73610; 73630; 99283

== ENCOUNTER 2021-11-18 13:46 | Outpatient (REF) | payer SELFPAY ==
[2021-11-18 15:52] LABS: Abs Immature Grans 0.04 10^3/uL (0.0-0.06); Absolute Basophil Count 0.04 10^3/uL (0.0-0.2); Absolute Eosinophil Count 0.06 10^3/uL (0.0-0.7); Absolute Monocyte Count 0.56 10^3/uL (0.1-0.8); Absolute Neutrophil Count 5.94 10^3/uL (1.2-6.7); Basophils % 0.4; Eosinophils % 0.6; HCT 45.9 % (36.0-46.0); HGB 14.9 g/dL (11.2-15.7); Immature Grans % 0.4; Lymphocytes % 28.9; MCH 29.4 pg (27.0-33.0); MCHC 32.5 % (32.0-36.0); MCV 90.7 fL (80-95); MPV 12.6 fL (8.0-11.0); Neutrophils % 63.7; Nucleated RBC 0 %; Platelet Count 171 10^3/uL (130-400); RBC 5.06 10^6/uL (3.93-5.22); RDW 12.4 % (11.7-14.6); RDW-SD 40.9 fL; WBC 9.34 10^3/uL (4.4-10.8)
[2021-11-18 15:57] LABS: ESR 17 mm/hr (0-20)
[2021-11-18 16:24] LABS: ALT 77 U/L (14-59); AST 39 U/L (15-37); Albumin 4.4 g/dL (3.4-5.0); Alkaline Phosphatase 71 U/L (46-116); Anion Gap 9.2 mmol/L (3-11); BUN 12 mg/dL (7-18); Bilirubin, Total 0.2 mg/dL (0.2-1.0); CO2 27.8 mmol/L (21.0-32.0); CREATININE 0.7 mg/dL (0.55-1.02); Calcium 9.2 mg/dL (8.5-10.1); Chloride 103 mmol/L (98-107); Glucose 87 mg/dL (74-106); Sodium 140 mmol/L (136-145); Total Protein 7.8 g/dL (6.4-8.2)
== END 2021-11-18 13:47 | disposition home or self-care (01) ==
LOC: NCHCN 13:46
PROVIDERS: PCP Family Medicine; Visit Provider Family Medicine
DX: R19.7 Diarrhea, unspecified (principal); K92.1 Melena
CPT/HCPCS: 80053; 85652; 85025

== ENCOUNTER 2022-04-30 17:24 | Emergency (ER) | payer SELFPAY ==
[2022-04-30 17:29] VITALS: BP 101/71; PULSE 85; RESP 18; TEMP 37.1; O2SAT 98
--- NOTE | 2022-04-30 19:20 | ED.GENADUL_ITS ---
Discharge Plan Discharge Details Chief Complaint: Sorethroat Primary Care Provider: Melody Koenig ED Provider: Sury Young Home Meds and New Rx's Prescriptions: No Action ibuprofen 600 mg Tablet 600 mg PO PRN PRN HPI General Date/Time Provider Initiated Documentation: 04/30/22 17:46 . Related Data Home Medications Medication Instructions Recorded Confirmed ibuprofen 600 mg tablet 600 mg PO PRN PRN 10/23/19 04/30/22 Allergies Allergy/AdvReac Type Severity Reaction Status Date / Time varicella virus vaccine live Allergy Unverified 04/30/22 17:32 Penicillins AdvReac Intermediate Other (See Unverified 04/30/22 17:32 Comment) General Stated Complaint: Sorethroat JENNIFER: 4 PFSH All Active Problems (Updated 11/20/21 @ 00:04 by NIDHI MOYER) Lumbar strain (Acute) Medical History (Updated 11/20/21 @ 00:04 by NIDHI MOYER) Anxiety GERD (gastroesophageal reflux disease) [place]-Schlatter's disease Surgical History H/O section Social History Smoking/Tobacco Use Status: Current every day Tobacco Type: cigarettes Smoking risk assessment performed?: Yes Alcohol Intake: current Alcohol Intake frequency: holidays/special occasions only Drug use: Never Substance use type: does not use Seatbelt use: sometimes Do you feel safe at home: Yes Do you feel safe in your relationship?: Yes Course Vital Signs Vital signs: Vital Signs Temperature 98.8 F 04/30/22 17:29 Pulse 85 04/30/22 17:29 Respiratory Rate 18 04/30/22 17:29 Blood Pressure 101/71 04/30/22 17:29 Pulse Oximetry 98 04/30/22 17:29 Temperature 98.8 F 04/30/22 17:29 Temperature Source Temporal Artery Scan 04/30/22 17:29 Pulse 85 04/30/22 17:29 Respiratory Rate 18 04/30/22 17:29 Respiratory Effort Non-Labored 04/30/22 17:32 Blood Pressure 101/71 04/30/22 17:29 Blood Pressure Position Sitting 04/30/22 17:29 Pulse Oximetry 98 04/30/22 17:29 Lab/Test Results Lab/Test Results: 04/30/22 18:22 Tonsil - Not Specified Group A Streptococcus Culture - Pending POC Strep Test-NADJA(Rapid) Start: 04/30/22 18:17 Freq: .Rapid Strep Test Status: Active Protocol: Document 04/30/22 18:24 CB (Rec: 04/30/22 18:24 [id number]) Strep test-NADJA(Rapid)-POC POC-Strep test-NADJA (Rapid) Negative POC-Strep test-NADJA (Rapid) Negative
[2022-04-30 20:51] LABS: Source Nasal/Nares
[2022-04-30 20:55] VITALS: BP 98/70; PULSE 88; RESP 18; TEMP 37.1; O2SAT 98
[2022-04-30 21:56] LABS: COVID-19 PCR Negative (Negative)
--- NOTE | 2022-04-30 23:09 | ED.GENADUL_ITS ---
Discharge Plan Disposition Patient Disposition: HOME Condition: Stable Discharge Details Clinical Impression: Acute tonsillitis, Oral thrush Primary Care Provider: Melody Koenig ED Provider: Kaycee Bullock Home Meds and New Rx's Prescriptions: New nystatin 100,000 unit/mL suspension 400,000 unit PO QID 7 Days Qty: 112 0RF Rx Instructions: swish and swallow Continued ibuprofen 600 mg Tablet 600 mg PO PRN PRN Discharge Instructions Instructions: Pharyngitis (ED) Additional Instructions: Use the nystatin as prescribed Follow-up with your primary care physician Take ibuprofen 300 mg every 8 hours with food Take Tylenol milligrams every 4-6 hours We will call you neck several hours here, test is positive, it is negative you will not receive a phone call Discharge Data Discharge Date/Time-TO BE ENTERED AT DEPARTURE: 04/30/22 21:03 Medical Decision Making Patient appears well Strep negative Negative COVID Placed on oral nystatin for home No indication for mononucleosis testing at this time, patient has had symptoms for 24 hours and likely to be positive at this time Should she have persistent symptoms longer than 3 to 4 days, she should have mononucleosis testing Return precautions discussed patient expressed understanding, no evidence of peritonsillar retropharyngeal abscess clinically, maintaining secretions, no trismus Medical Records Medical records reviewed: Yes I reviewed the patient's medical records. Lab Data Lab results reviewed: Yes I reviewed the patient's lab results. HPI General Date/Time Provider Initiated Documentation: 04/30/22 17:46 . HPI Narrative: This 26-year-old female presents with sore throat which started yesterday evening. She is also had some right ear pain. Pain reportedly with swallowing. Was treated with steroid inhaler for suspected bronchitis 2 weeks ago associated use earlier this week. Denies any fever or chills. Has had runny nose. Denies any known sick contacts. Denies chance of . Denies globus sensation. Related Data Home Medications Medication Instructions Recorded Confirmed ibuprofen 600 mg tablet 600 mg PO PRN PRN 10/23/19 04/30/22 nystatin 100,000 unit/mL oral 400,000 unit (4 mL) PO QID 7 days 04/30/22 suspension #112 mL Previous Rx's Medication Instructions Recorded nystatin 100,000 unit/mL oral 400,000 unit (4 mL) PO QID 7 days 04/30/22 suspension #112 mL Allergies Allergy/AdvReac Type Severity Reaction Status Date / Time varicella virus vaccine live Allergy Unverified 04/30/22 17:32 Penicillins AdvReac Intermediate Other (See Unverified 04/30/22 17:32 Comment) General Stated Complaint: Sorethroat JENNIFER: 4 Review of Systems All systems reviewed & are unremarkable except as noted in HPI and below PFSH All Active Problems (Updated 04/30/22 @ 20:46 by BRIDGETT Marc) Acute tonsillitis (Acute) Oral thrush (Acute) Lumbar strain (Acute) Medical History (Updated 04/30/22 @ 20:46 by BRIDGETT Marc) Anxiety GERD (gastroesophageal reflux disease) [place]-Schlatter's disease Surgical History H/O section Social History Smoking/Tobacco Use Status: Current every day Tobacco Type: cigarettes Smoking risk assessment performed?: Yes Alcohol Intake: current Alcohol Intake frequency: holidays/special occasions only Drug use: Never Substance use type: does not use Seatbelt use: sometimes Do you feel safe at home: Yes Do you feel safe in your relationship?: Yes Exam Const General: cooperative, comfortable and no acute distress HENMT Other: Oropharyngeal thrush Tonsillar exudate TMs within normal limits bilaterally Course Vital Signs Vital signs: Vital Signs Temperature 37.1 C 04/30/22 17:29 Pulse 85 04/30/22 17:29 Respiratory Rate 18 04/30/22 17:29 Blood Pressure 101/71 04/30/22 17:29 Pulse Oximetry 98 04/30/22 17:29 Temperature 37.1 C 04/30/22 20:55 Temperature Source Temporal Artery Scan 04/30/22 17:29 Pulse 88 04/30/22 20:55 Respiratory Rate 18 04/30/22 20:55 Respiratory Effort Non-Labored 04/30/22 17:32 Blood Pressure 98/70 L 04/30/22 20:55 Blood Pressure Position Sitting 04/30/22 17:29 Pulse Oximetry 98 04/30/22 20:55 Pain Level 6 04/30/22 20:55 Lab/Test Results Lab/Test Results: 04/30/22 18:22 Tonsil - Not Specified Group A Streptococcus Culture - Pending Laboratory Tests Range/Units 04/30/22 20:45 COVID-19 Source Nasal/Nares SARS-CoV-2 (PCR) (Negative) Negative POC Strep Test-NADJA(Rapid) Start: 04/30/22 18:17 Freq: .Rapid Strep Test Status: Discharge Protocol: Document 04/30/22 18:24 CB (Rec: 04/30/22 18:24 [id number]) Strep test-NADJA(Rapid)-POC POC-Strep test-NADJA (Rapid) Negative POC-Strep test-NADJA (Rapid) Negative
[2022-05-02 12:05] LABS: COVID-19 RT-PCR UVMMC Result Negative (Negative)
--- NOTE | 2022-05-03 09:33 | NUR.NOTE ---
Nursing Note: Called PT and left a message to call back. Covid results are negative.
== END 2022-04-30 21:03 | disposition home or self-care (01) ==
PROVIDERS: Physician Assistant; Emergency Provider Physician Assistant; PCP Family Medicine
DX: J03.90 Acute tonsillitis, unspecified (principal); B37.0 Candidal stomatitis; F17.210 Nicotine dependence, cigarettes, uncomplicated; Z20.822 Contact with and (suspected) exposure to COVID-19
CPT/HCPCS: 87635; 87880; 99283; U0003; 87081

== ENCOUNTER 2022-05-17 10:29 | Emergency (ER) | payer SELFPAY ==
[2022-05-17 10:31] VITALS: BP 125/49; PULSE 90; RESP 18; TEMP 36.8; O2SAT 97
--- NOTE | 2022-05-17 10:45 | DI.RAD_ITS ---
Exam(s) XR LUMBAR SPINE COMPLETE EXAM: XR LUMBAR SPINE COMPLETE CLINICAL HISTORY: pain lower lumbar spine, trauma TECHNIQUE: COMPARISON: CR LUMBAR SPINE AP, LAT from 10/27/2010 FINDINGS: Five views were obtained. The intervertebral disc spaces are well maintained. No evidence of acute fracture or dislocation. No spondylolysis or spondylolisthesis. IMPRESSION: Negative examination of the lumbar spine. RADIATION DOSE DELIVERED: Total DLP
--- NOTE | 2022-05-17 10:47 | ED.GENADUL_ITS ---
Discharge Plan Disposition Patient Disposition: HOME Condition: Stable Discharge Details Clinical Impression: Lumbar strain Primary Care Provider: Melody Koenig ED Provider: Kaycee Bullock Home Meds and New Rx's Prescriptions: New diazepam [Valium] 5 mg tablet 5 mg PO TID PRNQty: 5 0RF Continued ibuprofen 600 mg Tablet 600 mg PO PRN PRN Discharge Instructions Instructions: Low Back Strain (ED) Additional Instructions: Please take ibuprofen 600 mg every 8 hours with food Written you prescription for Valium, this medication is addictive, do not take Flexeril or combine alcohol with medication You should not operate your vehicle for 8 hours after taking it Please take ibuprofen for the next 3 to 5 days with food You may take Tylenol 650 mg every 6 hours as needed for breakthrough pain Please follow-up with your primary care physician or return to the emergency department for reassessment if pain persistent longer than additional 1 week or should he develop changes in bowel or bladder, fever or chills, or with any new or worsening complaints Referrals: Melody Koenig [Primary Care Provider] - Discharge Data Discharge Date/Time-TO BE ENTERED AT DEPARTURE: 05/17/22 11:45 Medical Decision Making pt appears well, no evidence of cauda equina, discitis, or epidural abscess valium for home prn with risk of addiction reviewed neurovascularly intact return precautions discussed and pt expressed understanding recheck with pcp in 2-3 days Medical Records Medical records reviewed: Yes I reviewed the patient's medical records. Lab Data Lab results reviewed: Yes I reviewed the patient's lab results. ECG Data Prior ECG tracings: available for review HPI General Date/Time Provider Initiated Documentation: 05/17/22 10:39 . HPI Narrative: This 26-year-old female presents with lumbar spine pain after backing into a stove while she was walking around her kitchen approximately 2 weeks ago. She states the pain is worsening since that time. She has not taken any [id number] medications. She denies any chance of . She denies any history of illicit drug use. She denies any fever or chills. She has abdominal pain. The pain is exacerbated with movement and she describes it as sharp positional pain. She denies any radiation of the discomfort down her legs. She denies any groin numbness or changes in bowel or bladder. Related Data Home Medications Medication Instructions Recorded Confirmed ibuprofen 600 mg tablet 600 mg PO PRN PRN 10/23/19 05/17/22 diazepam 5 mg tablet (Valium) 5 mg PO TID PRN #5 tabs 05/17/22 Previous Rx's Medication Instructions Recorded diazepam 5 mg tablet (Valium) 5 mg PO TID PRN #5 tabs 05/17/22 Allergies Allergy/AdvReac Type Severity Reaction Status Date / Time varicella virus vaccine live Allergy Unverified 04/30/22 17:32 Penicillins AdvReac Intermediate Other (See Unverified 04/30/22 17:32 Comment) General Stated Complaint: Nk/Back Pain JENNIFER: 4 Review of Systems All systems reviewed & are unremarkable except as noted in HPI and below PFSH All Active Problems (Updated 05/17/22 @ 11:37 by BRIDGETT Marc) Acute tonsillitis (Acute) Oral thrush (Acute) Lumbar strain (Acute) Medical History (Updated 05/17/22 @ 11:37 by BRIDGETT Marc) Anxiety GERD (gastroesophageal reflux disease) [place]-Schlatter's disease Surgical History H/O section Social History Smoking/Tobacco Use Status: Current every day Tobacco Type: cigarettes Smoking risk assessment performed?: Yes Alcohol Intake: current Alcohol Intake frequency: holidays/special occasions only Drug use: Never Substance use type: does not use Seatbelt use: sometimes Do you feel safe at home: Yes Do you feel safe in your relationship?: Yes Exam Const General: cooperative, comfortable and no acute distress Orientation: alert and oriented x3 Resp Effort & Inspection: normal respiratory effort Auscultation: clear to auscultation bilaterally Cardio Rate: regular rate Rhythm: regular rhythm Other: distal pulses intact GI Other: no cva tenderness, no abdominal tenderness Back/Spine/Pelvis Other: mild lumbar paraspinal tenderness Skin General skin exam: no rashes or lesions noted Neuro General: patient alert and patient oriented x3 Other: neg babinski bilaterally, neg slr bilaterally, sensation intact distally Course Vital Signs Vital signs: Vital Signs Temperature 36.8 C 05/17/22 10:31 Pulse 90 05/17/22 10:31 Respiratory Rate 18 05/17/22 10:31 Blood Pressure 125/49 L 05/17/22 10:31 Pulse Oximetry 97 05/17/22 10:31 Temperature 36.8 C 05/17/22 10:31 Temperature Source Temporal Artery Scan 05/17/22 10:31 Pulse 90 05/17/22 10:31 Respiratory Rate 18 05/17/22 10:31 Respiratory Effort Non-Labored 05/17/22 10:37 Blood Pressure 125/49 L 05/17/22 10:31 Blood Pressure Position Sitting 05/17/22 10:31 Pulse Oximetry 97 05/17/22 10:31 Pain Level 6 05/17/22 10:31
--- NOTE | 2022-05-17 11:31 | DI.VRAD_ITS ---
PROCEDURE INFORMATION: Exam: XR Lumbosacral Spine Exam date and time: 05/17/2022 11:08 AM Age: 26 years old Clinical indication: Other: Pain lower lumbar spine, trauma TECHNIQUE: Imaging protocol: Radiologic exam of the lumbosacral spine. Views: 4 or 5 views. COMPARISON: No relevant prior studies available. FINDINGS: Bones/joints: Normal. No acute or chronic fracture. Normal alignment. Disc spaces are preserved. No facet joint hypertrophy. Soft tissues: Unremarkable. IMPRESSION: Normal lumbrosacral spine. Dictated and Authenticated by: Tam Hunt MD. Ordering:LELAND Benoit MD
[2022-05-17] MEDS: diazePAM 5 MG TAB PO (11:37)
== END 2022-05-17 11:45 | disposition home or self-care (01) ==
PROVIDERS: Emergency Provider Physician Assistant; PCP Family Medicine
DX: S39.012A Strain of muscle, fascia and tendon of lower back, initial encounter (principal); F17.210 Nicotine dependence, cigarettes, uncomplicated; X15.0XXA Contact with hot stove (kitchen), initial encounter; Y93.G3 Activity, cooking and baking
CPT/HCPCS: 99283; 72110; 99284

== ENCOUNTER 2022-06-03 17:32 | Emergency (ER) | payer SELFPAY ==
[2022-06-03 17:38] VITALS: BP 123/81; PULSE 105; RESP 16; TEMP 37.5; O2SAT 100
--- NOTE | 2022-06-03 17:57 | ED.GENADUL_ITS ---
Discharge Plan Disposition Patient Disposition: HOME Condition: Stable Discharge Details Clinical Impression: Abdominal bloating Primary Care Provider: Melody Koenig ED Provider: Carl Chan Home Meds and New Rx's Prescriptions: Continued ibuprofen 600 mg Tablet 600 mg PO PRN PRN No Action diazepam [Valium] 5 mg tablet 5 mg PO TID PRNQty: 5 0RF Discharge Instructions Additional Instructions: your blood work including test were unremarkable if symptoms continue in a week return to the emergency department if you feel more ill, have severe worsening pain or persistent vomiting return to the emergency department Medical Decision Making 26 yo female who states she has hx of ibs who comes in with cc of bloating intermittently for the past 3 weeks but constant the last few days. Denies sharp abdomen pain, no vomit or fevers, has had some nausea. Can't think of anything that makes it better or worse. She states she is worried about but has had negative poc hcg tests at home. She arrives stable. She localizes the bloating sensation to the upper abdomen. Abdomen is nondistended, normal bowel sounds. No murpy's sign, miinimal epigastric pain. Suspect food related illness less likely ibs and biliary colic, will check cmp and lipase, do not feel emergent ct indicated at this time. labs unremarkable, patient stable and has no abdominal tenderness on repeat exam. suspect gerd vs gastritis vs ibs, advised to f/u with pcp and return pr ecautions given Differential Diagnosis Differential Diagnosis: food illness, ibs, biliary colic Lab Data Lab results reviewed: Yes I reviewed the patient's lab results. HPI General Mode of arrival: ambulatory . Date/Time Provider Initiated Documentation: 06/03/22 17:35 . Limitations to Documentation: no limitations . Information obtained by: patient . History of Present Illness 26 year old F presents to the emergency department with the chief complaint of bloating, described as moderate, Patient started experiencing this week(s) (3) and it has been constant. No relieving factors improve symptom(s), No exacerbating factors reported . Patient notes no other symptoms.. Patient did receive the following treatments prior to arrival, none Related Data Home Medications Medication Instructions Recorded Confirmed ibuprofen 600 mg tablet 600 mg PO PRN PRN 10/23/19 06/03/22 diazepam 5 mg tablet (Valium) 5 mg PO TID PRN #5 tabs 05/17/22 06/03/22 Previous Rx's Medication Instructions Recorded diazepam 5 mg tablet (Valium) 5 mg PO TID PRN #5 tabs 05/17/22 Allergies Allergy/AdvReac Type Severity Reaction Status Date / Time varicella virus vaccine live Allergy Unverified 06/03/22 17:44 Penicillins AdvReac Intermediate Other (See Unverified 06/03/22 17:44 Comment) General Stated Complaint: GenMedical JENNIFER: 3 Review of Systems All systems reviewed & are unremarkable except as noted in HPI and below Constitutional Constitutional: Denies chills, Denies fever(s) and Denies weakness Cardiovascular Cardiovascular: Denies chest pain and Denies dyspnea Respiratory Respiratory: Denies cough and Denies dyspnea Gastrointestinal Gastrointestinal: Denies vomiting Genitourinary Genitourinary: Denies dysuria Musculoskeletal Musculoskeletal: Denies joint swelling Integumentary/Breasts Skin/Breast: Denies rash Neurologic Neurologic: Denies weakness PFSH All Active Problems (Updated 06/03/22 @ 19:13 by Carl Chan MD) Abdominal bloating (Acute) Lumbar strain (Acute) Medical History (Updated 06/03/22 @ 19:13 by Carl hCan MD) Anxiety GERD (gastroesophageal reflux disease) [place]-Schlatter's disease Surgical History H/O section Social History Smoking/Tobacco Use Status: Current every day Tobacco Type: cigarettes Smoking risk assessment performed?: Yes Alcohol Intake: current Alcohol Intake frequency: holidays/special occasions only Drug use: Never Substance use type: does not use Seatbelt use: sometimes Do you feel safe at home: Yes Do you feel safe in your relationship?: Yes Exam Const General: no acute distress Orientation: alert HENMT Head: normal to inspection Ears: external ears normal General nose exam: external nose normal Mouth: moist mucous membranes Eyes General: appearance normal, both eyes and all related structures Neck Neck: normal visual inspection Resp Effort & Inspection: normal respiratory effort and able to speak in complete sentences Cardio Rate: regular rate GI Palpation: soft and nontender Skin General skin exam: no rashes or lesions noted Neuro General: patient alert and patient oriented x3 Extrem General: normal to inspection Psych Mental Status: mental status grossly normal Course Vital Signs Vital signs: Vital Signs Temperature 37.5 C 06/03/22 17:38 Pulse 105 H 06/03/22 17:38 Respiratory Rate 16 06/03/22 17:38 Blood Pressure 123/81 06/03/22 17:38 Pulse Oximetry 100 06/03/22 17:38 Temperature 37.5 C 06/03/22 17:38 Temperature Source Tympanic 06/03/22 17:38 Pulse 105 H 06/03/22 17:38 Respiratory Rate 16 06/03/22 17:38 Respiratory Effort Non-Labored 06/03/22 17:43 Blood Pressure 123/81 06/03/22 17:38 Blood Pressure Position Sitting 06/03/22 17:38 Pulse Oximetry 100 06/03/22 17:38 Oxygen Delivery Method Room Air 06/03/22 17:38 Oxygen Flow Rate 0 06/03/22 17:38 Pain Level 1 06/03/22 17:38
[2022-06-03 18:13] LABS: Abs Immature Grans 0.02 10^3/uL (0.0-0.06); Absolute Basophil Count 0.04 10^3/uL (0.0-0.2); Absolute Eosinophil Count 0.07 10^3/uL (0.0-0.7); Absolute Lymphocyte Count 3.28 10^3/uL (1.2-3.4); Absolute Monocyte Count 0.77 10^3/uL (0.1-0.8); Absolute Neutrophil Count 6.08 10^3/uL (1.2-6.7); Basophils % 0.4; Eosinophils % 0.7; HCT 43.5 % (36.0-46.0); HGB 14.8 g/dL (11.2-15.7); Immature Grans % 0.2; MCH 30.1 pg (27.0-33.0); MCV 88 fL (80-95); MPV 11.8 fL (8.0-11.0); Monocytes % 7.5; Neutrophils % 59.2; Platelet Count 161 10^3/uL (130-400); RBC 4.92 10^6/uL (3.93-5.22); RDW 12.4 % (11.7-14.6); RDW-SD 40.3 fL; WBC 10.26 10^3/uL (4.4-10.8)
[2022-06-03 18:26] LABS: ALT 19 U/L (14-59); AST 15 U/L (15-37); Alkaline Phosphatase 55 U/L (46-116); Anion Gap 7.7 mmol/L (3-11); BUN 10 mg/dL (7-18); Bilirubin, Total 0.2 mg/dL (0.2-1.0); CO2 27.3 mmol/L (21.0-32.0); CREATININE 0.8 mg/dL (0.55-1.02); Calcium 8.8 mg/dL (8.5-10.1); Chloride 103 mmol/L (98-107); Glucose 90 mg/dL (74-106); Lipase 82 U/L (73-393); Potassium 3.7 mmol/L (3.5-5.1); Sodium 138 mmol/L (136-145); Total Protein 7.9 g/dL (6.4-8.2)
[2022-06-03 18:48] LABS: Bilirubin Negative (Negative); Blood Negative (Negative); Clarity Clear (Clear); Glucose Negative (Negative); Ketones Negative (Negative); Leukocyte Esterase Negative (Negative); Nitrite Negative (Negative); Urobilinogen 0.2 EU/dL (Up TO 0.2)
[2022-06-03 19:22] VITALS: BP 124/78; PULSE 92; RESP 14; O2SAT 99
[2022-06-03 19:24] VITALS: RESP 14
[2022-06-03 19:36] LABS: HCG Qual (Serum) Negative
== END 2022-06-03 19:33 | disposition home or self-care (01) ==
PROVIDERS: Emergency Provider Emergency Medicine; PCP Family Medicine
DX: R14.0 Abdominal distension (gaseous) (principal); R11.0 Nausea; F17.210 Nicotine dependence, cigarettes, uncomplicated
CPT/HCPCS: 36415; 80053; 81025; 83690; 99283; 81003; 84703; 85025; 99282

== ENCOUNTER 2022-06-28 18:51 | Emergency (ER) | payer SELFPAY ==
[2022-06-28 19:05] VITALS: BP 118/92; PULSE 97; RESP 18; TEMP 35.9; O2SAT 97
--- NOTE | 2022-06-28 20:00 | DI.RAD_ITS ---
Exam(s) XR CHEST 2V PA LATERAL EXAM: XR CHEST 2V PA LATERAL CLINICAL HISTORY: cough, shortness of breath, r/o acute disease TECHNIQUE: 2D digital imaging was performed. COMPARISON: CR,XR XR PORTABLE CHEST AP from 10/31/2020 FINDINGS: HEART: Normal size. Aorta: PULMONARY VASCULATURE: Normal. LUNGS: Clear. PLEURAL SPACE: No pleural effusion or pneumothorax. BONE:Unremarkable for age. IMPRESSION: No acute abnormality. DATA REPOSITORY: RADIATION DOSE DELIVERED:
--- NOTE | 2022-06-28 20:13 | ED.GENADUL_ITS ---
Discharge Plan Disposition Patient Disposition: HOME Condition: Improving Discharge Details Clinical Impression: Viral URI with cough Primary Care Provider: Melody Koenig ED Provider: Sury Young Home Meds and New Rx's Prescriptions: New benzonatate 100 mg capsule 100 mg PO TID PRN (Reason: cough) Qty: 14 0RF Continued diazepam [Valium] 5 mg tablet 5 mg PO TID PRNQty: 5 0RF ibuprofen 600 mg Tablet 600 mg PO PRN PRN Discharge Instructions Instructions: Upper Respiratory Infection (ED), Acute Cough (ED) Additional Instructions: Your chest x-ray today is reassuring and shows no evidence of acute concerning or significant findings. Your COVID test results are pending and you will be notified once they are available. Please quarantine until your results are available and if confirmed to be negative. Drink plenty of fluids and get plenty of rest. Alternate tylenol and motrin as needed and directed for pain. You can take [id number] pseudoephedrine or Afrin as needed and directed for nasal congestion. You have been placed on care management list to arrange for a follow-up appointment with a primary care doctor to establish care and for reevaluation. Return to the emergency department with any worsening or new concerning symptoms. Discharge Data Discharge Physician: Sury Young Medical Decision Making 26-year-old female with a history of anxiety, GERD and tobacco smoking who presents for nasal congestion, rhinorrhea, sore throat, productive cough and occasional shortness of breath for the past 2 weeks. Vitals within normal limits. Patient appears comfortable and nontoxic. Normal ENT exam. Lungs clear bilaterally. Oxygen saturation within normal limits. Differential diagnosis includes viral URI with cough, sinus infection, bronch itis, COVID. We will obtain a send out COVID test and refer for chest x-ray. We will give a dose of Tessalon Perles and DuoNeb and reassess. Patient reassessed and she feels better after DuoNeb. Lungs clear bilaterally. Her chest x-ray is negative. 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 Send out COVID swab obtained and pending. Advised to increase fluids, rest, take [id number] Sudafed and Afrin as needed for nasal congestion. A prescription for Tessalon Perles sent electronically to her pharmacy. Do not see indication for steroids or antibiotics at this time. Patient placed on care management list to arrange for follow-up appointment with the primary care doctor to establish care for reevaluation. Usual and customary return precautions given prior to discharge. Medical Records Medical records reviewed: Yes I reviewed the patient's medical records. Imaging Data Radiologic Study: Radiologist's impression: XR Chest Exam date and time: 06/28/2022 8:40 PM Age: 26 years old Clinical indication: Other: Cough, SOB, R/O acute disease TECHNIQUE: Imaging protocol: Radiologic exam of the chest. Views: 2 views. COMPARISON: XR PORTABLE CHEST AP 10/31/2020 5:15 PM FINDINGS: Lungs:? Mild chronic interstitial prominence. No consolidation. Pleural spaces: Unremarkable. No pleural effusion. No pneumothorax. Heart/Mediastinum: Unremarkable. No cardiomegaly. Bones/joints: Unremarkable. IMPRESSION: No acute findings.? No radiographic evidence for pneumonia HPI General Mode of arrival: ambulatory . Date/Time Provider Initiated Documentation: 06/28/22 19:47 . Limitations to Documentation: no limitations . Information obtained by: patient . HPI Narrative: Pt is a 26yo F who is a tobacco smoker who presents to the ED with a complaint of nasal congestion, runny nose, sore throat, cough and occasional shortness of breath for the past 2 weeks. Patient states her cough is bothering him the most which is keeping her up at night. She states she occasionally has green mucus and coughing up green sputum. She denies any known fever. She states she has taken gzyw-[id number] Mucinex and used her albuterol inhaler which she has for seasonal asthma without significant relief. She states he is vaccinated for COVID and was recently exposed to COVID by a coworker. She states she took an at home COVID test this week which was negative. Related Data Home Medications Medication Instructions Recorded Confirmed ibuprofen 600 mg tablet 600 mg PO PRN PRN 10/23/19 06/03/22 diazepam 5 mg tablet (Valium) 5 mg PO TID PRN #5 tabs 05/17/22 06/03/22 benzonatate 100 mg capsule 100 mg PO TID PRN cough #14 caps 06/28/22 Previous Rx's Medication Instructions Recorded diazepam 5 mg tablet (Valium) 5 mg PO TID PRN #5 tabs 05/17/22 benzonatate 100 mg capsule 100 mg PO TID PRN cough #14 caps 06/28/22 Allergies Allergy/AdvReac Type Severity Reaction Status Date / Time varicella virus vaccine live Allergy Unverified 06/03/22 17:44 Penicillins AdvReac Intermediate weird Unverified 06/04/22 07:21 feeling and room spins General Stated Complaint: RespSymp JENNIFER: 3 Review of Systems All systems reviewed & are unremarkable except as noted in HPI and below Constitutional Constitutional: Reports as per HPI, Denies chills and Denies fever(s) Eyes Eyes: Denies blurry vision ENT Ears, Nose, Mouth, and Throat: Denies dizziness, Reports nasal congestion, Reports nasal discharge, Denies sore throat and Denies throat swelling Cardiovascular Cardiovascular: Denies chest pain and Reports dyspnea Respiratory Respiratory: Reports cough and Reports dyspnea Gastrointestinal Gastrointestinal: Denies abdominal pain, Denies diarrhea and Denies vomiting Genitourinary Genitourinary: Denies hematuria and Denies dysuria Musculoskeletal Musculoskeletal: Denies back pain and Denies numbness Integumentary/Breasts Skin/Breast: Denies lesions and Denies rash Neurologic Neurologic: Denies dizziness, Denies localized weakness and Denies numbness Allergic/Immunologic Allergic/Immunologic: Denies throat swelling PFSH All Active Problems (Updated 06/28/22 @ 21:10 by Sury Young DO) Abdominal bloating (Acute) Viral URI with cough (Acute) Lumbar strain (Acute) Medical History (Updated 06/28/22 @ 21:10 by Sury Young DO) Anxiety GERD (gastroesophageal reflux disease) [place]-Schlatter's disease Surgical History H/O section Social History Smoking/Tobacco Use Status: Current every day Tobacco Type: cigarettes Smoking risk assessment performed?: Yes Alcohol Intake: current Alcohol Intake frequency: holidays/special occasions only Drug use: Never Substance use type: does not use Seatbelt use: sometimes Do you feel safe at home: Yes Do you feel safe in your relationship?: Yes Exam Const General: cooperative and no acute distress Orientation: alert, awake and oriented x3 HENAZ Head: normal to inspection Ears: hearing grossly normal bilaterally, external ears normal and TM's normal bilaterally General nose exam: external nose normal Mouth: oral mucosae normal Throat: posterior oropharynx normal Eyes General: appearance normal, both eyes and all related structures Neck Neck: normal visual inspection Resp Effort & Inspection: normal respiratory effort and able to speak in complete sentences Auscultation: clear to auscultation bilaterally Cardio Rate: regular rate Rhythm: regular rhythm Skin General skin exam: no rashes or lesions noted Neuro General: patient alert, patient awake and patient oriented x3 Motor: muscle tone normal throughout Extrem General: normal to inspection and full ROM Psych Appearance: grossly normal Affect: normal affect Course Vital Signs Vital signs: Vital Signs Temperature 96.6 F L 06/28/22 19:05 Pulse 97 H 06/28/22 19:05 Respiratory Rate 18 06/28/22 19:05 Blood Pressure 118/92 H 06/28/22 19:05 Pulse Oximetry 97 06/28/22 19:05 Temperature 96.6 F L 06/28/22 19:05 Temperature Source Oral 06/28/22 19:05 Pulse 97 H 06/28/22 19:05 Respiratory Rate 18 06/28/22 19:05 Blood Pressure 118/92 H 06/28/22 19:05 Pulse Oximetry 97 06/28/22 19:05 Oxygen Delivery Method Room Air 06/28/22 19:05 Oxygen Flow Rate 0 06/28/22 19:05 Pain Level 4 06/28/22 19:05
[2022-06-28] MEDS: Benzonatate 100 MG CAP PO (20:38)
--- NOTE | 2022-06-28 20:51 | DI.VRAD_ITS ---
PROCEDURE INFORMATION: Exam: XR Chest Exam date and time: 06/28/2022 8:40 PM Age: 26 years old Clinical indication: Other: Cough, SOB, R/O acute disease TECHNIQUE: Imaging protocol: Radiologic exam of the chest. Views: 2 views. COMPARISON: XR PORTABLE CHEST AP 10/31/2020 5:15 PM FINDINGS: Lungs: Mild chronic interstitial prominence. No consolidation. Pleural spaces: Unremarkable. No pleural effusion. No pneumothorax. Heart/Mediastinum: Unremarkable. No cardiomegaly. Bones/joints: Unremarkable. IMPRESSION: No acute findings. No radiographic evidence for pneumonia Dictated and Authenticated by: Eugene Sales MD. Ordering:FERNANDA Ga MD
[2022-06-28 20:54] VITALS: PULSE 78; RESP 18; RESP 8; O2SAT 98
[2022-06-28] MEDS: Albuterol/Ipratropium 3 ML UPD VIAL UPD (20:54)
[2022-06-28] MEDS: Benzonatate 100 MG CAP 200 MG PO (21:48)
[2022-06-30 13:52] LABS: COVID-19 RT-PCR UVMMC Result Negative (Negative)
--- NOTE | 2022-06-30 18:38 | NUR.NOTE ---
called to tell patient her covid test was [id number]. patient unable to complete a sentence due to coughing spasms. she stated there had been no improvement and her inhaler was not helping her feel better either. advised patient she should come back for re-evaluation. patient also advised that she was unable to afford the tessalon perles that were prescribed.
== END 2022-06-28 21:47 | disposition home or self-care (01) ==
PROVIDERS: Emergency Provider Physician Assistant; PCP Family Medicine
DX: J06.9 Acute upper respiratory infection, unspecified (principal); F17.210 Nicotine dependence, cigarettes, uncomplicated; Z20.822 Contact with and (suspected) exposure to COVID-19
CPT/HCPCS: 81025; 99283; U0003; 71046; 99284; J7620

== ENCOUNTER 2022-06-30 19:00 | Emergency (ER) | payer SELFPAY ==
[2022-06-30 19:09] VITALS: BP 131/79; PULSE 95; RESP 16; TEMP 36.6
--- NOTE | 2022-06-30 20:20 | ED.GENADUL_ITS ---
Discharge Plan Disposition Patient Disposition: HOME Condition: Fair Discharge Details Clinical Impression: Asthma exacerbation Primary Care Provider: Melody Koenig ED Provider: Artur Ibanez Home Meds and New Rx's Prescriptions: New doxycycline hyclate 100 mg capsule 100 mg PO BID Qty: 13 0RF prednisone 20 mg tablet 40 mg PO DAILY Qty: 8 0RF No Action ibuprofen 600 mg Tablet 600 mg PO PRN PRN Discharge Instructions Instructions: Asthma (ED) Additional Instructions: If you develop any new or significant worsening of symptoms please return to the emergency department for reassessment. Otherwise use your already provided inhaler and take 2 puffs every 4 hours as needed for shortness of breath or chest tightness. Please take steroids at the same time daily and stay well- hydrated during illness. Also please take antibiotics for full course and until completely gone to ensure if this is bacterial that you have a full course of treatment and do not have rebound symptoms. If not improving in the next 3 days please follow-up with your primary care provider for reassessment. Referrals: Melody Koenig [Primary Care Provider] - 3 days Discharge Data Discharge Date/Time-TO BE ENTERED AT DEPARTURE: 06/30/22 20:36 Medical Decision Making Patient presenting to the emergency department for chief complaint of worsening cough. Patient states for over 2 weeks now she has had worsening cough, was seen in the emergency department 2 days ago and had negative COVID testing but has continued to worsening in her cough. She does state history of seasonal asthma which is similar but slightly different due to amount of coughing. She does state some wheezing but mostly coughing with chest tightness. Patient denies any fever chills, or other worsening symptoms. Physical exam shows Clear lung sounds but significant persistent cough heard throughout exam. Exam is otherwise unremarkable and patient is in stable condition patient is not hypoxic and vital signs are otherwise stable. High suspicion for acute asthma exacerbation secondary to viral illness. Will place patient on steroid burst for [address] patient on doxycycline to cover for possible bacterial pneumonia not seen on chest x-ray previously. After discussion of diagnosis and plan of care patient has no further needs, questions, or concerns and states clear understanding to return to the emergency department for any worsening symptoms. This documentation was generated using [employer] system, please disregard any oddities of phrase or misspellings. Medical Records Medical records reviewed: Yes I reviewed the patient's medical records. HPI General Mode of arrival: ambulatory . Date/Time Provider Initiated Documentation: 06/30/22 19:06 . Limitations to Documentation: no limitations . Information obtained by: patient and RN notes reviewed . History of Present Illness 26 year old F presents to the emergency department with the chief complaint of Worsening cough, described as moderate, with intensity rated at 6. Quality is described as aching, and is localized to the chest. Patient reports no radiation. Patient started experiencing this week(s) (3) and it has been constant. No relieving factors improve symptom(s), No exacerbating factors reported . Patient did receive the following treatments prior to arrival, other (Prescribed and oplo-[id number] medications) Related Data Home Medications Medication Instructions Recorded Confirmed ibuprofen 600 mg tablet 600 mg PO PRN PRN 10/23/19 06/30/22 doxycycline hyclate 100 mg capsule 100 mg PO BID #13 caps 06/30/22 prednisone 20 mg tablet 40 mg PO DAILY #8 tabs 06/30/22 Previous Rx's Medication Instructions Recorded doxycycline hyclate 100 mg capsule 100 mg PO BID #13 caps 06/30/22 prednisone 20 mg tablet 40 mg PO DAILY #8 tabs 06/30/22 Allergies Allergy/AdvReac Type Severity Reaction Status Date / Time varicella virus vaccine live Allergy Unverified 06/30/22 19:13 Penicillins AdvReac Intermediate weird Unverified 06/30/22 19:13 feeling and room spins General Stated Complaint: RespSymp JENNIFER: 3 Review of Systems Constitutional Constitutional: Reports chills, Reports headache(s), Reports lethargy and Reports malaise ENT Ears, Nose, Mouth, and Throat: Denies dysphagia, Denies ear discharge, Denies otalgia, Reports headache(s), Reports nasal congestion, Denies neck pain, Denies odynophagia, Reports sinus pressure and Reports sore throat Cardiovascular Cardiovascular: Reports chest pain (Due to coughing) and Reports dyspnea (With coughing spells) Respiratory Respiratory: Reports as per HPI, Reports cough, Reports pain with cough, Reports dyspnea (With coughing spells) and Denies wheezing Gastrointestinal Gastrointestinal: Reports system reviewed and no additional complaints, except as documented, Denies dysphagia and Denies odynophagia Musculoskeletal Musculoskeletal: Denies neck pain Integumentary/Breasts Skin/Breast: Denies rash Neurologic Neurologic: Reports headache(s) Hematologic/Lymphatic Hematologic/Lymphatic: Denies lymphadenopathy Allergic/Immunologic Allergic/Immunologic: Denies wheezing PFSH All Active Problems (Updated 06/30/22 @ 20:25 by Artur Ibanez NP) Abdominal bloating (Acute) Viral URI with cough (Acute) Asthma exacerbation (Acute) Lumbar strain (Acute) Medical History (Updated 06/30/22 @ 20:25 by Artur Ibanez NP) Anxiety GERD (gastroesophageal reflux disease) [place]-Schlatter's disease Surgical History H/O section Social History Smoking/Tobacco Use Status: Current every day Tobacco Type: cigarettes Smoking risk assessment performed?: Yes Alcohol Intake: current Alcohol Intake frequency: holidays/special occasions only Drug use: Never Substance use type: does not use Seatbelt use: sometimes Do you feel safe at home: Yes Do you feel safe in your relationship?: Yes Exam Const General: cooperative, comfortable and no acute distress Orientation: alert and awake HENMT Head: normal to inspection, normocephalic and atraumatic Ears: hearing grossly normal bilaterally and TM's normal bilaterally General nose exam: external nose normal Face and sinus: no erythema and sinus tenderness ethmoid and maxillary Mouth: oral mucosae normal, no drooling, no muffled voice and no trismus Throat: posterior oropharynx normal Neck Neck: normal visual inspection, full ROM, no lymphadenopathy, no meningeal signs, trachea midline and supple Resp Effort & Inspection: normal respiratory effort, able to speak in complete sentences and cough Quality of cough: dry Auscultation: clear to auscultation bilaterally Cardio Rate: regular rate Rhythm: regular rhythm Heart Sounds: S1 normal, S2 normal, normal S1 and S2, no click, no gallops, no murmurs and no rubs Skin General skin exam: no rashes or lesions noted and dry skin (warm) Neuro General: patient alert, patient awake, patient oriented x3, gait normal and moves all extremities Cognition: normal cognition Speech: speech normal Course Vital Signs Vital signs: Vital Signs Temperature 36.6 C 06/30/22 19:09 Pulse 95 H 06/30/22 19:09 Respiratory Rate 16 06/30/22 19:09 Blood Pressure 131/79 06/30/22 19:09 Temperature 36.6 C 06/30/22 19:09 Temperature Source Oral 06/30/22 19:09 Pulse 95 H 06/30/22 19:09 Respiratory Rate 16 06/30/22 19:09 Respiratory Effort 06/30/22 19:09 Blood Pressure 131/79 06/30/22 19:09 Pain Level 8 06/30/22 19:09
[2022-06-30] MEDS: Doxycycline Hyclate 100 MG CAP PO (20:24)
[2022-06-30] MEDS: predniSONE 20 MG TAB 40 MG PO (20:24)
== END 2022-06-30 20:36 | disposition home or self-care (01) ==
PROVIDERS: Emergency Provider Nurse Practitioner Family; PCP Family Medicine
DX: J45.901 Unspecified asthma with (acute) exacerbation (principal); F17.210 Nicotine dependence, cigarettes, uncomplicated; Z20.822 Contact with and (suspected) exposure to COVID-19
CPT/HCPCS: 99283; 99284; J7512

== ENCOUNTER 2022-09-30 15:39 | Emergency (ER) | payer BC, SELFPAY ==
[2022-09-30 15:50] VITALS: BP 129/67; PULSE 85; RESP 16; TEMP 36.8; O2SAT 99
--- NOTE | 2022-09-30 17:29 | ED.GENADUL_ITS ---
Discharge Plan Disposition Patient Disposition: Home Condition: Stable Discharge Details Clinical Impression: Upper respiratory infection Primary Care Provider: Melody Koenig ED Provider: Kaycee Bullock Home Meds and New Rx's Prescriptions: No Action No Known Home Meds Discharge Instructions Instructions: Upper Respiratory Infection (ED) Additional Instructions: take zyrtec as needed flonase for congestion for 2 weeks increase fluids tylenol as needed for pain return earlier with new or worsening complaints Stand Alone Forms: Work Release Referrals: Melody Koenig [Primary Care Provider] - Discharge Data Discharge Date/Time-TO BE ENTERED AT DEPARTURE: 09/30/22 17:40 Medical Decision Making This 19-year-old female presents with upper respiratory congestion, of note, she is approximately 2 to 3 months heart rate 150 No vaginal bleeding or abdominal discomfort COVID and flu negative Supportive care recommended Discharged home in stable condition with stable vitals Encouraged to follow-up with primary care physician or schedule appointment at [facility] at her scheduled appointment Return precautions reviewed Medical Records Medical records reviewed: Yes I reviewed the patient's medical records. Lab Data Lab results reviewed: Yes I reviewed the patient's lab results. HPI General Date/Time Provider Initiated Documentation: 09/30/22 16:14 . HPI Narrative: This 27-year-old female presents with upper respiratory symptoms in the presence of . States she has been sick for the past 2 weeks with congestion and pressure in her face. Denies known sick contacts. Denies any chest pain or shortness of breath. Denies any abdominal pain or vaginal bleeding. States last menstrual period was the end of June per patient. Denies fever or chills. Related Data Home Medications Medication Instructions Recorded Confirmed Unknown [No Known Home Meds] 09/18/22 09/18/22 Allergies Allergy/AdvReac Type Severity Reaction Status Date / Time varicella virus vaccine live Allergy Unverified 09/18/22 13:29 Penicillins AdvReac Intermediate weird Unverified 09/18/22 13:29 feeling and room spins latex AdvReac burning Verified 09/18/22 13:29 General Stated Complaint: GenMedical JENNIFER: 4 Review of Systems All systems reviewed & are unremarkable except as noted in HPI and below PFSH All Active Problems (Updated 09/30/22 @ 17:32 by BRIDGETT Marc) Upper respiratory infection (Acute) Delayed menses (Acute) Lumbar strain (Acute) Medical History (Updated 09/30/22 @ 17:32 by BRIDGETT Marc) Anxiety GERD (gastroesophageal reflux disease) [place]-Schlatter's disease Surgical History H/O section Social History Smoking/Tobacco Use Status: Current every day Tobacco Type: cigarettes Smoking risk assessment performed?: Yes Alcohol Intake: current Alcohol Intake frequency: holidays/special occasions only Drug use: Never Substance use type: does not use Seatbelt use: sometimes Do you feel safe at home: Yes Do you feel safe in your relationship?: Yes Female Reproductive History Menstrual Age of Menarche: 14 Duration of menses: 3-5 days History History 3 Para 2 Hx # Term Pregnancies Multiple births Hx # Pregnancies Ectopic pregnancies AB induced Hx Number of Living Children AB spontaneous 1 Past Pregnancies Del. Date GA/Weeks # Preg Succ Route Wgt Sex Labor Lgth Anesth esia Location [facility] 10/22/14 40 No Yes 3090.098 g Male 14.5 Ad [facility] 03/08/17 39 No Yes 2523.108 g Male 16 Ad [facility] Delivery Date: 10/22/14 Last Updated by: Nhung Parr RN [place] Delivery Date: 03/08/17 Last Updated by: Nhung Parr RN [place] Exam Const General: cooperative, comfortable and no acute distress Eyes Sclera: sclerae normal Resp Effort & Inspection: normal respiratory effort Auscultation: clear to auscultation bilaterally Cardio Rate: regular rate Rhythm: regular rhythm GI Inspection: normal to inspection Other: non-tender Skin General skin exam: no rashes or lesions noted Neuro General: patient alert and patient oriented x3 Course Vital Signs Vital signs: Vital Signs Temperature 36.8 C 09/30/22 15:50 Pulse 85 09/30/22 15:50 Respiratory Rate 16 09/30/22 15:50 Blood Pressure 129/67 09/30/22 15:50 Pulse Oximetry 99 09/30/22 15:50 Temperature 36.8 C 09/30/22 15:50 Temperature Source Skin 09/30/22 15:50 Pulse 85 09/30/22 15:50 Respiratory Rate 16 09/30/22 15:50 Blood Pressure 129/67 09/30/22 15:50 Blood Pressure Position Sitting 09/30/22 15:50 Pulse Oximetry 99 09/30/22 15:50 Oxygen Delivery Method Room Air 09/30/22 15:50 Oxygen Flow Rate 0 09/30/22 15:50 Pain Level 0 09/30/22 15:50
== END 2022-09-30 17:40 | disposition home or self-care (01) ==
PROVIDERS: Emergency Provider Physician Assistant; PCP Family Medicine
DX: O26.891 Other specified pregnancy related conditions, first trimester (principal); J06.9 Acute upper respiratory infection, unspecified
CPT/HCPCS: 99282; 99283

== ENCOUNTER 2022-10-29 04:08 | Outpatient (CLI) | payer BC, SELFPAY ==
[2022-10-29 10:35] LABS: Panorama Kit Sent via Fed Ex
[2022-10-29 10:44] LABS: Abs Immature Grans 0.04 10^3/uL (0.0-0.06); Absolute Basophil Count 0.03 10^3/uL (0.0-0.2); Absolute Eosinophil Count 0.03 10^3/uL (0.0-0.7); Absolute Lymphocyte Count 2.15 10^3/uL (1.2-3.4); Absolute Monocyte Count 0.57 10^3/uL (0.1-0.8); Absolute Neutrophil Count 7.36 10^3/uL (1.2-6.7); Basophils % 0.3; Eosinophils % 0.3; HCT 38.2 % (36.0-46.0); HGB 13.4 g/dL (11.2-15.7); Immature Grans % 0.4; Lymphocytes % 21.1; MCHC 35.1 % (32.0-36.0); MCV 86 fL (80-95); Monocytes % 5.6; Neutrophils % 72.3; Platelet Count 155 10^3/uL (130-400); RBC 4.46 10^6/uL (3.93-5.22); RDW 12.3 % (11.7-14.6); RDW-SD 38.6 fL; WBC 10.18 10^3/uL (4.4-10.8)
[2022-10-29 11:02] LABS: Glucose,1 Hr (Glucola) 95 mg/dL (80-140)
[2022-10-30 09:54] LABS: Hepatitis B Surface Ag Negative (Negative)
[2022-10-30 10:18] LABS: Rubella IgG Ab (UVM) Positive (See Note); Varicella IgG Antibody Positive (See Note)
[2022-10-30 10:26] LABS: HIV-1/2 Ag & Ab Screen Negative (Negative)
[2022-10-30 10:38] LABS: Hepatitis C Ab w Rflx HCV PCR Negative (Negative)
[2022-10-31 15:38] LABS: Syphilis IgG w/Reflex Nonreactive (Nonreactive)
[2022-11-03 15:08] LABS: Specimen WB Whole Blood
[2022-11-13 16:03] LABS: Result Summary NEGATIVE; Specimen WB Whole Blood
== END 2022-10-29 04:09 | disposition home or self-care (01) ==
LOC: LBO 04:08
PROVIDERS: PCP Family Medicine; Visit Provider Advanced Practice Midwife
DX: Z34.91 Encounter for supervision of normal pregnancy, unspecified, first trimester
CPT/HCPCS: 36415; 81220; 81222; 81329; 82950; 86787; 86803; 86850; 86900; 86901; 87340; 87389; 84443; 85025; 86762; 86780

== ENCOUNTER 2022-10-29 15:46 | Outpatient (REF) | payer BC, SELFPAY ==
[2022-10-29 12:44] LABS: *AMPHETAMINES SCREEN URINE Negative (Negative); *BARBITURATES SCREEN URINE Negative (Negative); *BENZODIAZEPINES SCREEN URINE Negative (Negative); Cannabinoids THC Negative (Negative); Cocaine Screen,Urine Negative (Negative); METHADONE URINE SCREEN Negative (Negative); OPIATES URINE SCREEN Negative (Negative)
[2022-10-29 12:45] LABS: Tricyclic Antidepressants Negative (Negative)
[2022-10-30 13:44] LABS: Chlamydia Result Negative (Negative); GC Result Negative (Negative)
[2022-11-03 12:52] LABS: Buprenorphine Negative ng/mL (Cutoff: 5.0); Norbuprenorphine Negative ng/mL (Cutoff: 2.5)
== END 2022-10-29 15:47 | disposition home or self-care (01) ==
LOC: LBN 15:46
PROVIDERS: PCP Family Medicine; Visit Provider Advanced Practice Midwife
DX: Z34.91 Encounter for supervision of normal pregnancy, unspecified, first trimester
CPT/HCPCS: 80307; 80348; 87491; 87591; 87086

== ENCOUNTER 2022-11-17 07:35 | Emergency (ER) | payer BC, SELFPAY ==
[2022-11-17 07:39] VITALS: BP 120/70; PULSE 108; RESP 20; TEMP 36.5; O2SAT 97
--- NOTE | 2022-11-17 08:19 | DI.US_ITS ---
Exam(s) US OB CERVICAL LENGTH EXAM: US OB CERVICAL LENGTH CLINICAL HISTORY: lower pelvic pain; hx of possible uterine window; eval placenta/cx/fetus. TECHNIQUE: Transabdominal obstetrical ultrasound performed. COMPARISON: US [facility] OB ULTRASOUND from 03/12/2014 FINDINGS: Number of fetuses: 1 position: varied heart rate: 154 bpm Placental location: There is a grade 0 posterior and fundal placenta. No evidence of previa. BIOMETRIC DATA: BPD: 3.13 cm, 15 weeks 6 days HC: 11.63 cm, 15 weeks 5 days AC: 9.48 cm, 15 weeks 4 days FL: 1.6 cm, 14 weeks 5 days EFW: 118.56 g, 0.27 lb, 97 % Composite Age: 15 weeks 3 days CHEVY: 05/08/2023 There is a focal prominence of the uterine wall anteriorly. This may represent a fibroid. No abnorm al blood flow seen internally. Cervical length is 5.6 cm. IMPRESSION: 1. Single live intrauterine gestation as above. 2. Findings were discussed with Artur Ibanez on 11/17/2022. DATA REPOSITORY:
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
[2022-11-17 08:36] LABS: Abs Immature Grans 0.05 10^3/uL (0.0-0.06); Absolute Basophil Count 0.02 10^3/uL (0.0-0.2); Absolute Eosinophil Count 0.06 10^3/uL (0.0-0.7); Absolute Lymphocyte Count 1.77 10^3/uL (1.2-3.4); Absolute Monocyte Count 0.49 10^3/uL (0.1-0.8); Absolute Neutrophil Count 6.45 10^3/uL (1.2-6.7); Basophils % 0.2; Eosinophils % 0.7; HCT 38.3 % (36.0-46.0); HGB 13.1 g/dL (11.2-15.7); Immature Grans % 0.6; MCH 29.6 pg (27.0-33.0); MCHC 34.2 % (32.0-36.0); MCV 87 fL (80-95); MPV 12.2 fL (8.0-11.0); Monocytes % 5.5; Platelet Count 139 10^3/uL (130-400); RBC 4.42 10^6/uL (3.93-5.22); RDW 13.2 % (11.7-14.6); RDW-SD 41.2 fL; WBC 8.84 10^3/uL (4.4-10.8)
[2022-11-17 08:55] VITALS: BP 117/60; PULSE 76; RESP 16; O2SAT 99
[2022-11-17 08:57] LABS: ALT 14 U/L (14-59); AST 15 U/L (15-37); Albumin 3.1 g/dL (3.4-5.0); Alkaline Phosphatase 50 U/L (46-116); Anion Gap 10.6 mmol/L (3-11); BUN 8 mg/dL (7-18); Bilirubin, Total 0.2 mg/dL (0.2-1.0); CO2 24.4 mmol/L (21.0-32.0); CREATININE 0.6 mg/dL (0.55-1.02); Calcium 9.2 mg/dL (8.5-10.1); Chloride 102 mmol/L (98-107); Estimated GFR 125.31 (mL/min/1.73m2); Glucose 91 mg/dL (74-106); Potassium 3.6 mmol/L (3.5-5.1); Sodium 137 mmol/L (136-145); Total Protein 7.1 g/dL (6.4-8.2)
[2022-11-17 09:27] LABS: Bilirubin Negative (Negative); Blood Negative (Negative); Clarity Clear (Clear); Glucose Negative (Negative); Ketones Negative (Negative); Leukocyte Esterase Negative (Negative); Nitrite Negative (Negative); Specific Gravity 1.025 (1.005-1.025); Urobilinogen 0.2 mg/dL (Up to 0.2)
[2022-11-17 09:35] LABS: Bacteria Moderate HPF (Negative); C & S Indicated? No; Casts 0-2 Hyaline LPF (Negative); Crystals Negative HPF (Negative); Epithelial Cells Moderate HPF (Negative); Mucus Moderate (Negative); RBC 0-2 HPF (0-2); WBC Negative HPF (0-5)
[2022-11-17 09:47] LABS: HCG Quant, Pregnancy 25777 mIU/mL (1-3)
== END 2022-11-17 10:57 | disposition home or self-care (01) ==
PROVIDERS: Emergency Provider Nurse Practitioner Family; PCP Family Medicine
DX: O26.891 Other specified pregnancy related conditions, first trimester (principal); R10.9 Unspecified abdominal pain; R77.0 Abnormality of albumin; Z3A.14 14 weeks gestation of pregnancy
CPT/HCPCS: 36415; 76815; 80053; 99284; 81003; 81015; 84702; 85025; 99282

== ENCOUNTER 2023-01-18 17:45 | Emergency (ER) | payer SELFPAY ==
[2023-01-18 17:49] VITALS: BP 114/72; PULSE 84; RESP 16; TEMP 37; O2SAT 100
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
[2023-01-18 18:48] VITALS: RESP 18
[2023-01-18 18:53] VITALS: BP 105/53; BP 111/50; BP 91/50; PULSE 83; PULSE 87; PULSE 98
[2023-01-18 18:59] LABS: HCT 35.2 % (36.0-46.0); HGB 12.1 g/dL (11.2-15.7); MCH 30.5 pg (27.0-33.0); MCHC 34.4 % (32.0-36.0); MCV 89 fL (80-95); MPV 12.3 fL (8.0-11.0); Platelet Count 135 10^3/uL (130-400); RBC 3.97 10^6/uL (3.93-5.22); RDW 13.2 % (11.7-14.6); RDW-SD 43.5 fL; WBC 10.57 10^3/uL (4.4-10.8)
[2023-01-18 19:06] LABS: Bilirubin Negative (Negative); Blood Negative (Negative); Clarity Clear (Clear); Glucose Negative (Negative); Ketones Negative (Negative); Leukocyte Esterase Negative (Negative); Nitrite Negative (Negative); Specific Gravity 1.015 (1.005-1.025); Urobilinogen 0.2 mg/dL (Up to 0.2)
[2023-01-18 19:22] LABS: Anion Gap 10.4 mmol/L (3-11); BUN 5 mg/dL (7-18); CO2 23.6 mmol/L (21.0-32.0); CREATININE 0.6 mg/dL (0.55-1.02); Calcium 8.9 mg/dL (8.5-10.1); Chloride 103 mmol/L (98-107); Estimated GFR 125.31 (mL/min/1.73m2); Glucose 82 mg/dL (74-106); Potassium 3.4 mmol/L (3.5-5.1); Sodium 137 mmol/L (136-145); TSH (W/Ref FT4) 1.49 uIU/mL (0.36-3.74)
[2023-01-18 19:53] VITALS: BP 114/72; PULSE 80; RESP 18; O2SAT 98
== END 2023-01-18 19:54 | disposition home or self-care (01) ==
PROVIDERS: Emergency Provider Physician Assistant; PCP Family Medicine
DX: O99.282 Endocrine, nutritional and metabolic diseases complicating pregnancy, second trimester; E86.0 Dehydration; O26.892 Other specified pregnancy related conditions, second trimester; R42 Dizziness and giddiness; Z3A.24 24 weeks gestation of pregnancy; O09.292 Supervision of pregnancy with other poor reproductive or obstetric history, second trimester
CPT/HCPCS: 80048; 85027; 99282; 81003; 84443; 99283

== ENCOUNTER 2023-02-15 12:51 | Outpatient (CLI) | payer MEDICAID, SELFPAY ==
[2023-02-15 14:22] LABS: HCT 34.8 % (36.0-46.0); MCH 30.8 pg (27.0-33.0); MCHC 34.5 % (32.0-36.0); MCV 90 fL (80-95); MPV 12.5 fL (8.0-11.0); Platelet Count 145 10^3/uL (130-400); RBC 3.89 10^6/uL (3.93-5.22); RDW 12.9 % (11.7-14.6); RDW-SD 41.9 fL; WBC 11.34 10^3/uL (4.4-10.8)
[2023-02-15 14:31] LABS: Glucose,1 Hr (Glucola) 145 mg/dL (80-140)
== END 2023-02-15 12:52 | disposition home or self-care (01) ==
LOC: LBO 12:53
PROVIDERS: PCP Family Medicine; Visit Provider Obstetrics & Gynecology Maternal & Fetal Medicine
DX: O99.282 Endocrine, nutritional and metabolic diseases complicating pregnancy, second trimester (principal); R73.09 Other abnormal glucose; Z3A.26 26 weeks gestation of pregnancy
CPT/HCPCS: 36415; 82950; 85027

== ENCOUNTER 2023-03-19 14:59 | Outpatient (CLI) | payer MEDICAID, SELFPAY ==
[2023-03-19] MEDS: Betamet Acet/Betamet Na Ph Inj. 30 MG/5 ML 12 MG IM (08:43)
== END 2023-03-19 15:00 | disposition home or self-care (01) ==
LOC: BCD 03-23 15:00
PROVIDERS: PCP Family Medicine; Visit Provider Obstetrics & Gynecology Gynecology
DX: O60.02 Preterm labor without delivery, second trimester (principal)
CPT/HCPCS: 96372; J0702

== ENCOUNTER 2023-05-30 21:08 | Emergency (ER) | payer MEDICAID, SELFPAY ==
[2023-05-30 21:11] VITALS: BP 112/70; PULSE 96; RESP 16; TEMP 36.8; O2SAT 99
--- NOTE | 2023-05-30 21:15 | RT.EKG_ITS ---
APPROVED REPORT Exam: Resting ECG Reason for Exam: pleuritic chest pain Patient Location: E HR:86 bpm ECG Measurements Heart Rate 86 AXIS MT 153 P 44 QRSd 90 QRS 28 QT 356 T 28 QTc 427 Conclusion Sinus rhythm...normal P axis, V-rate 60- 99 Left atrial enlargement...P, P'>60mS, <-0.15mV V1 sinus rhythm, normal axis, normal intervals, non ischemic
--- NOTE | 2023-05-30 21:15 | DI.CT_ITS ---
Exam(s) CT CHEST PE CTA EXAM: CT CHEST PE CTA CLINICAL HISTORY: left pleuritic chest pain. TECHNIQUE: Imaging Protocol: Axial CT angiography was performed with multi-slice acquisition and mu lti-planar and/or 3D reconstructions. CONTRAST MATERIAL: Intravenous: Omnipaque 350 contrast volume:75 mL COMPARISON: CR,XR XR CHEST 2V PA LATERAL from 06/28/2022 FINDINGS: The examination is limited due to patient motion artifact. Tracheobronchial tree: Patent where visualized. Pulmonary parenchyma: There is an infiltrate seen in the left lower lobe. The right lung is clear. No architectural distortion. Pulmonary Arteries: There are filling defects seen in branches of the pulmonary arteries to the left lower lobe consistent with pulmonary emboli. There is suboptimal opacification of subsegmental pulmo nary artery branches. Mediastinum and Daniella: No dominant adenopathy or fluid collection. The esophagus is unremarkable. Visualized thyroid gland: Unremarkable. Pleura: No effusion or pneumothorax. Heart: The heart is not dilated. No coronary artery calcifications are seen. There may be a tiny pollo cardial effusion. The RV to LV ratio Question of a small pericardial effusion. Is 1.1. Aorta: Thoracic aorta non-dilated. No evidence of dissection. Upper abdomen: Unremarkable. Soft tissues: Unremarkable. Bones: Within normal limits for the patient's age. IMPRESSION: 1. There are filling defects seen in branches to the left lower lobe consistent with pulmonary emboli . 2. There is an infiltrate seen in the periphery of the left lower lobe. In the setting of pulmonary emboli, pulmonary infarct cannot be excluded. Pneumonia or atelectasis should also be considered. 3. RV to LV 0 ratio greater than 1 which may reflect right heart strain. RADIATION DOSE DELIVERED: 428.61mGy.cm Total DLP DATA REPOSITORY: All CT scans at this facility are submitted to the National Radiology Data Registry (NRDR) Dose Index Registry (DIR) with the [employer] (A[employer]). RADIATION OPTIMIZATION: All CT scans at this facility use at least one of these dose optimization te chniques: automated exposure control; mA and/or kV adjustment per patient size (includes targeted exa ms where dose is matched to clinical indication); or iterative reconstruction.
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
[2023-05-30] MEDS: Ketorolac 15 MG/ML VIAL IVP (21:37)
[2023-05-30] MEDS: Lidocaine 5% Patch 1 PATCH TP (21:37)
[2023-05-30] MEDS: Acetaminophen 325 MG TAB 650 MG PO (21:37)
[2023-05-30] MEDS: Normal Saline 500 ML 1000 ML IV (21:37)
[2023-05-30] MEDS: Dexamethasone 10 MG/ML VIAL IVP (21:37)
[2023-05-30] MEDS: Omnipaque 350 MG/ML 100 ML BTL IJ (21:42)
[2023-05-30] MEDS: Normal Saline - Diluent 50 ML VIAL IJ (21:42)
[2023-05-30 21:45] LABS: Abs Immature Grans 0.03 10^3/uL (0.0-0.06); Absolute Basophil Count 0.03 10^3/uL (0.0-0.2); Absolute Eosinophil Count 0.13 10^3/uL (0.0-0.7); Absolute Lymphocyte Count 3.36 10^3/uL (1.2-3.4); Absolute Monocyte Count 0.98 10^3/uL (0.1-0.8); Absolute Neutrophil Count 6.13 10^3/uL (1.2-6.7); Basophils % 0.3; Eosinophils % 1.2; HCT 35.2 % (36.0-46.0); HGB 11.6 g/dL (11.2-15.7); Immature Grans % 0.3; Lymphocytes % 31.5; MCV 82 fL (80-95); MPV 11.4 fL (8.0-11.0); Monocytes % 9.2; Neutrophils % 57.5; Platelet Count 182 10^3/uL (130-400); RDW 16.3 % (11.7-14.6); WBC 10.66 10^3/uL (4.4-10.8)
[2023-05-30 22:08] LABS: ALT 18 U/L (14-59); AST 12 U/L (15-37); Albumin 3.6 g/dL (3.4-5.0); Alkaline Phosphatase 71 U/L (46-116); Anion Gap 10.5 mmol/L (3-11); BUN 14 mg/dL (7-18); Bilirubin, Total 0.2 mg/dL (0.2-1.0); CO2 25.5 mmol/L (21.0-32.0); Calcium 8.8 mg/dL (8.5-10.1); Chloride 103 mmol/L (98-107); Glucose 102 mg/dL (74-106); NT-proBNP 56 pg/mL (<300); Potassium 3.9 mmol/L (3.5-5.1); Sodium 139 mmol/L (136-145); Total Protein 7.4 g/dL (6.4-8.2)
[2023-05-30 22:09] LABS: INR 0.9 (0.9-1.1); PTT Activated 26.1 sec (21.5-31.9); Prothrombin Time 9.4 sec (9.3-11.0)
[2023-05-30 22:11] LABS: Troponin I < 50 ng/L (<or=60)
--- NOTE | 2023-05-30 22:20 | DI.VRAD_ITS ---
Addendum created by Miguel Angel Martin MD on 05/30/2023 10:26:16 PM EDT: THIS REPORT CONTAINS FINDINGS THAT MAY BE CRITICAL TO PATIENT CARE. Crut Boykin confirms receipt of report. at 10:25 PM EDT on 05/30/2023. Initial report created on 05/30/2023 10:19:47 PM EDT: PROCEDURE INFORMATION: Exam: CTA Chest With Contrast Exam date and time: 05/30/2023 9:44 PM Age: 27 years old Clinical indication: Other: Left pleuritic chest pain TECHNIQUE: Imaging protocol: Computed tomographic angiography of the chest with contrast. Exam focused on the arteries. 3D rendering (Not supervised by radiologist): MIP and/or 3D reconstructed images were created by the technologist. Contrast material: 350; Contrast volume: 100 ml; Contrast route: INTRAVENOUS (IV); COMPARISON: CR XR CHEST 2V PA LATERAL 06/28/2022 8:40 PM FINDINGS: Pulmonary arteries: The pulmonary arteries are normal in caliber. Filling defects present within the left lower lobe pulmonary artery consistent pulmonary embolism. Aorta: The aorta is normal without evidence of aneurysmal dilatation, dissection or occlusive disease. Lungs: There are diffuse interstitial infiltrates present. This may represent cardiogenic versus noncardiogenic edema. An acute inflammatory process and/or infectious process/pneumonia are not excluded. There is heterogeneous attenuation of the pulmonary parenchyma, consistent with air trapping from underlying small airways disease. Scattered patchy ground-glass opacities within the lungs. These findings are nonspecific and may represent hypoventilatory change,edema, hemorrhage, or an infectious/inflammatory process (acute or chronic). Focal patchy infiltrate left lower lobe of the lung may represent developing pulmonary infarct. Pleural spaces: There is no evidence of pneumothorax. There are no pleural effusions present. Heart: No evidence of reflux of contrast into the inferior vena cava or hepatic veins to suggest right heart strain or pulmonary hypertension. The cardiac structures are normal. Right ventricular left ventricular ratio is abnormal at 1.1 consider elevated right cardiac pressures. There is a small pericardial effusion present. Lymph nodes: There is no evidence of lymphadenopathy. Bones/joints: The spine, sternum, ribs, and pectoral girdles show no evidence of acute abnormality. Soft tissues: There are no soft tissue masses or fluid collections. The upper abdominal viscera are unremarkable. Other findings: The mediastinal structures are normal. IMPRESSION: 1. Filling defects present within the left lower lobe pulmonary artery consistent with few moderate pulmonary embolism. 2. There are diffuse interstitial infiltrates present. This may represent cardiogenic versus noncardiogenic edema. An acute inflammatory process and/or infectious process/pneumonia are not excluded. 3. There is heterogeneous attenuation of the pulmonary parenchyma, consistent with air trapping from underlying small airways disease. 4. Scattered patchy ground-glass opacities within the lungs. These findings are nonspecific and may represent hypoventilatory change,edema, hemorrhage, or an infectious/inflammatory process (acute or chronic). 5. Focal patchy infiltrate left lower lobe of the lung may represent developing pulmonary infarct. 6. Right ventricular left ventricular ratio is abnormal at 1.1 consider elevated right cardiac pressures. 7. Small pericardial effusion present. Dictated and Authenticated by: Miguel Angel Martin MD. Ordering:ANGELA Elias MD
[2023-05-30 23:19] LABS: COVID-19 PCR Negative (Negative); Influenza A PCR Negative (Negative); Influenza B PCR Negative (Negative); RSV PCR Negative (Negative)
--- NOTE | 2023-05-30 23:19 | NUR.NOTE ---
Pt placed on care management to see Dr. Liu for Pulmonary and primary care within 1 week.
[2023-05-30 23:27] LABS: Source Nasopharynx
[2023-05-30] MEDS: Enoxaparin 120 MG/0.8 ML SYR 130 MG SC (23:46)
--- NOTE | 2023-05-31 10:10 | W.ED.FU ---
Date of service: 05/31/23 Time of Service: 10:10 Follow Up Plan: Call received from [facility] in [place] explaining that they do not have the 130 mg of Lovenox they do have the 150 mg they report that they cannot dispense this because they cannot expect the patient to dose this medication the way it is written. I did speak with the patient she does not want to take Eliquis due to breast-feeding. Patient is to return to the ER for the 130 mg Lovenox injection. I did send new prescriptions to the pharmacy for 100 mg Lovenox injection and 30 mg Lovenox injection. Previous prescription was written for 1.5 mg/kg. Patient does have a filling deficit to left lower pulmonary artery supply on CT presumed PE.
== END 2023-05-30 23:55 | disposition home or self-care (01) ==
PROVIDERS: Emergency Provider Emergency Medicine; PCP Family Medicine
DX: I26.99 Other pulmonary embolism without acute cor pulmonale; O88.23 Thromboembolism in the puerperium
CPT/HCPCS: 36415; 71275; 80053; 81025; 87637; 93005; 96361; 96372; 96374; 96375; 99285; 83880; 84484; 85025; 85610; 85730; 93010; 99284; J1100; J1650; J1885; J3490

== ENCOUNTER 2023-05-31 11:49 | Emergency (ER) | payer MEDICAID, SELFPAY ==
[2023-05-31 11:51] VITALS: BP 123/77; PULSE 117; TEMP 37.2; O2SAT 98
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
--- NOTE | 2023-06-01 09:36 | NUR.NOTE ---
Opened Chart to look for an ultrasound order. Nursing Note:
== END 2023-05-31 12:55 | disposition home or self-care (01) ==
PROVIDERS: Emergency Provider Registered Nurse Emergency; PCP Family Medicine
DX: I26.99 Other pulmonary embolism without acute cor pulmonale (principal); Z76.89 Persons encountering health services in other specified circumstances
CPT/HCPCS: 96372; 99282; J1650

== ENCOUNTER → 2023-06-02 03:17 | Outpatient (CLI) | payer MEDICAID, SELFPAY ==
--- NOTE | 2023-06-02 | DI.US_ITS ---
Exam(s) US EXTREMITY VENOUS BI EXAM: US EXTREMITY VENOUS BI CLINICAL HISTORY: SOB, POST ,? DVT. TECHNIQUE: Bilateral lower extremity venous ultrasound performed using grayscale, color-flow, and sp ectral Doppler analysis. COMPARISON: No exams were available for comparison FINDINGS: The right common femoral, femoral and popliteal veins demonstrate normal compressibility, augmentatio n, and color Doppler. The posterior tibial and peroneal veins are patent. The saphenofemoral junctio n is unremarkable. There is no evidence of a Murguia's cyst. The soft tissues are unremarkable. The left common femoral, femoral and popliteal veins demonstrate normal compressibility, augmentation , and color Doppler. The posterior tibial and peroneal veins are patent. The saphenofemoral junction is unremarkable. There is no evidence of a Murguia's cyst. The soft tissues are unremarkable. IMPRESSION: 1. No evidence of a right lower extremity DVT. 2. No evidence of a left lower extremity DVT. DATA REPOSITORY:
== END ==
PROVIDERS: PCP Family Medicine; Visit Provider Student in an Organized Health Care Education/Training Program
DX: R06.02 Shortness of breath (principal)
CPT/HCPCS: 93970

== ENCOUNTER 2023-06-02 09:36 | Emergency (ER) | payer MEDICAID, SELFPAY ==
[2023-06-02 09:45] VITALS: BP 112/73; PULSE 75; RESP 18; TEMP 36.8; O2SAT 99
== END 2023-06-02 10:13 | disposition left against medical advice (07) ==
PROVIDERS: PCP Family Medicine
DX: Z53.21 Procedure and treatment not carried out due to patient leaving prior to being seen by health care provider (principal)

== ENCOUNTER 2023-10-20 14:38 | Outpatient (CLI) | payer MEDICAID, SELFPAY ==
--- NOTE | 2023-10-20 09:18 | DI.RAD_ITS ---
Exam(s) XR WRIST LT COMPLETE EXAM: XR WRIST LT COMPLETE CLINICAL HISTORY: LEFT WRIST PAIN. TECHNIQUE: 2D digital imaging was performed. Three views. COMPARISON: No exams were available for comparison FINDINGS: BONES: No acute fracture is present. No bony destructive lesion is seen. JOINTS: The carpal bones are normally aligned. SOFT TISSUE: Normal. IMPRESSION: Unremarkable radiographs of the left wrist. DATA REPOSITORY: RADIATION DOSE DELIVERED:
--- OUTSIDE RECORDS SUMMARY | 2023-10-20 14:42 | XMS_ITS | Patient Health Record ---
Author Name Unknown [facility] Address [address] [place] [address] Care Team Providers Care Director Of Materials Name Role Phone DESTINI DAMON MD Primary Care Provider Unavailab le ALLERGIES Allergen (clinical drug ingredient) Drug/Non Drug Allergy documented on EMR Reaction Allergy Type Onset Date Status black flies (uncoded) Unknown Allergy Active REASON FOR REFERRAL No Information MEDICATIONS Medication SIG (Take, Route, Frequency, Duration) Notes Start Date End Date Status hydrOXYzine HCl 25 MG 1 tablet as needed Orally every 8 hrs for 30 day(s) Active Ibuprofen 800 MG 1 tablet with food o r milk as needed Orally Three times a day Active ZyrTEC Allergy 10 MG 1 tablet Orally Onc e a day for 30 day(s) Active Fluticasone Propionate 50 MCG/ACT 1 spray in each nostril Nasally Once a day for 30 day(s) Active Medrol 4 MG as directed Orally 07/12/2020 Active Melatonin 5 MG 2 tablets at bedtime Orally Once a day Active Depo-Provera 150 MG/ML 1 ml Intramuscula r for 30 day(s) Active Cyclobenzaprine HCl 10 MG 1 tablet at be dtime as needed Orally Once a day for 30 day(s) Active SOCIAL HISTORY Tobacco Use: Social History Observation Description Date Smoking Status WARNING: Information temporarily unavailable Sex Assigned At : Social History Observation Description Sex Assigned At Unknown SMOKING Question Answer Notes Are you a: nonsmoker PLAN OF TREATMENT No Information Insurance Providers Payer Name Payer Address Payer Phone Subscriber Number Group Number Insured Name Patient Relationship to Insured Coverage Start Date Coverage End Date [facility] [address] [place], [place] [id number] December, Child - Insured has Financial Responsibility [place] [address] DENISE MENDEZ Self - patient is the insured MEDICAL (GENERAL) HISTORY Medical History History ICD Code Anxiety PTSD Fatigue Surgical History Surgery Date(Month/Year)
== END 2023-10-20 14:39 | disposition home or self-care (01) ==
LOC: DIORS 14:39
PROVIDERS: PCP Family Medicine; Visit Provider Student in an Organized Health Care Education/Training Program
DX: M25.532 Pain in left wrist (principal)
CPT/HCPCS: 73110

== ENCOUNTER 2023-12-08 14:55 | Outpatient (REF) | payer MEDICAID, SELFPAY ==
[2023-12-08 14:42] LABS: Abs Immature Grans 0.02 10^3/uL (0.0-0.06); Absolute Basophil Count 0.02 10^3/uL (0.0-0.2); Absolute Lymphocyte Count 2.89 10^3/uL (1.2-3.4); Absolute Monocyte Count 0.52 10^3/uL (0.1-0.8); Absolute Neutrophil Count 5.12 10^3/uL (1.2-6.7); Basophils % 0.2; Eosinophils % 1.2; HCT 44.7 % (36.0-46.0); HGB 14.8 g/dL (11.2-15.7); Immature Grans % 0.2; Lymphocytes % 33.3; MCH 28.7 pg (27.0-33.0); MCHC 33.1 % (32.0-36.0); MCV 87 fL (80-95); MPV 12.7 fL (8.0-11.0); Neutrophils % 59.1; Platelet Count 171 10^3/uL (130-400); RBC 5.15 10^6/uL (3.93-5.22); RDW 13.2 % (11.7-14.6); RDW-SD 41.7 fL; WBC 8.67 10^3/uL (4.4-10.8)
[2023-12-08 15:16] LABS: ALT 31 U/L (14-59); AST 15 U/L (15-37); Albumin 4.2 g/dL (3.4-5.0); Alkaline Phosphatase 83 U/L (46-116); Anion Gap 10.6 mmol/L (3-11); BUN 16 mg/dL (7-18); Bilirubin, Total 0.3 mg/dL (0.2-1.0); CO2 26.4 mmol/L (21.0-32.0); CREATININE 0.8 mg/dL (0.55-1.02); Calcium 9.6 mg/dL (8.5-10.1); Calculated LDL 176 mg/dL (<100); Chloride 105 mmol/L (98-107); Cholesterol 247 mg/dL (<200); Estimated GFR 102.22 (mL/min/1.73m2); Glucose 75 mg/dL (74-106); HDL Cholesterol 51 mg/dL (40-60); Potassium 4.4 mmol/L (3.5-5.1); Sodium 142 mmol/L (136-145); Total Protein 7.7 g/dL (6.4-8.2); Triglyceride 101 mg/dL (<150)
[2023-12-08 15:24] LABS: Vitamin D 25 Total 22.9 ng/mL (30-100)
== END 2023-12-08 14:56 | disposition home or self-care (01) ==
LOC: NCHCN 14:55
PROVIDERS: PCP Family Medicine; Visit Provider Family Medicine
DX: Z00.00 Encounter for general adult medical examination without abnormal findings (principal); E55.9 Vitamin D deficiency, unspecified
CPT/HCPCS: 80053; 80061; 82306; 84443; 85025

== ENCOUNTER 2024-01-04 16:32 | Emergency (ER) | payer MEDICAID, SELFPAY ==
[2024-01-04 16:34] VITALS: BP 111/69; PULSE 92; RESP 18; TEMP 36.4; O2SAT 97
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
== END 2024-01-04 17:43 | disposition home or self-care (01) ==
PROVIDERS: Emergency Provider Physician Assistant; PCP Family Medicine
DX: H66.91 Otitis media, unspecified, right ear
CPT/HCPCS: 87880; 99283; 87081

== ENCOUNTER 2024-01-20 15:30 | Emergency (ER) | payer MEDICAID, SELFPAY ==
[2024-01-20 15:37] VITALS: BP 120/72; PULSE 95; RESP 15; TEMP 36.3; O2SAT 99
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
== END 2024-01-20 16:16 | disposition home or self-care (01) ==
PROVIDERS: Emergency Provider Physician Assistant; PCP Family Medicine
DX: M67.834 Other specified disorders of tendon, left wrist (principal); M25.532 Pain in left wrist
CPT/HCPCS: 29125; 99283

== ENCOUNTER 2024-02-15 05:27 | Outpatient (CLI) | payer MEDICAID, SELFPAY ==
--- NOTE | 2024-02-15 10:11 | W.NUTRFU ---
Date of service: 02/15/24 Time of Service: 09:00 Nutrition Note NOTE: referral received re: medical nutrition therapy for hyperlipidemia. Isabel also wanted to discuss weight management today as well. Assessment Pt is 28yo female, with multiple children with youngest at 10 months and currently still breast feeding (mom is pumping and offering formula and solids as well) and did not want to start statin due to status. Her labs showed elevated total and LDL cholesterol with low vitamin D as well. She takes sporadic walks with and stroller but no scheduled exercise program/routine at this time. Anthropometrics: 12/08/23 weight:101.79kg Ht:62.68 BMI: 40.2 Estimated energy needs: 2219kcals (REEx1.3AF) - recommended 1800kcals for goal of weight loss with 30% of energy coming from protein (135g), 40% from total carbs (180 grams, with <40g coming from added sugar and at least 25g coming from fiber), and 30% from healthy fats (60g) Current diet: Isabel has an inconsistent eating pattern with reported 1 or 2 meals per day and often grazes if she goes too long without eating. She shares that she can also be an emotional eater and targets sweets at this time - shares that she not too long ago ate an entire pkg of oreo cookies in one sitting. She skips breakfast most days although relays this morning she had an egg and sausage on white hebrew muffin. She does report when she gets an occasional iced cofee out she will now request 2 pumps instead of 8 pumps of liquid sugar. She takes a women's MVI inconsistently and has an Rx for vitamin D2 but states she forgets to take it because it is only every 2 weeks in megadose. Her usual diet is assessed at low in fiber, high in added sugar and refined carbohydrates and high in animal products. Diagnosis Inadequate fiber intake (NI-53.5) related to inconsistent intake and low intake of higher fiber plant choices as evidenced by self reported diet history. Obesity (NC-3.3) related to excessive CHO intake with average kcal intake exceeding her needs as evidenced by self reported diet history and current BMI > 40kg/m2 Physical inactivity ((NB-2.1) related to busy personal/family schedule and many children at home as well as no scheduled routine and perceived physical limitations, as evidenced by pt reported activity. Excessive Carbohydrate intake (NI-53.2) related to high added sugar intake via drinks like ice coffee and out of periods of emotional eating, as evidence by diet history related by patient. Intervention Educated Isabel on habits that will improve her LDL and total cholesterol, as well as help her in her weight mgt goals. *reducing added sugar intake to <40g per day on average *increasing fiber intake to at least 25g *scheduling some exercise (Activity is great but exercise is needed for goals she currently has) *eating more consistent meals with recommendation to eat 3 meals and 0-2 planned snacks per day with emphasis on eating breakfast and not eating after ~7pm *meal planning more to be proactive about her food choices and targeting to meal plan around plants and other foods we discussed that are known to help lower LDL cholesterol (oats, garlic, whole soy, citrus, berries, legumes, whole grains, nuts and seeds, spices, and others) Monitoring No follow up scheduled at this time. Pt took some notes from today home with her and she was emailed her recommended macros if she desires to track. gave her my card to contact with any need for further appts, resources or quick answers to her questions. Time Spent in Nutritional Counseling and Treatment: 45 minutes
== END 2024-02-15 05:28 | disposition home or self-care (01) ==
PROVIDERS: PCP Family Medicine; Visit Provider Dietitian, Registered
DX: E87.5 Hyperkalemia (principal)
CPT/HCPCS: 00123; 97802

== ENCOUNTER 2024-03-29 12:59 | Outpatient (REF) | payer MEDICAID, SELFPAY ==
--- OUTSIDE RECORDS SUMMARY | 2024-03-29 13:01 | XMS_ITS | Patient Health Record ---
Author Name Unknown [facility] Address [address] [place] [address] Care Team Providers Care Gauge Checker Name Role Phone DESTINI DAMON MD Primary [...] Once a day for 30 day(s) Active PLAN OF TREATMENT No Information Insurance Providers Payer Name Payer Address Payer Phone Subscriber Number Group Number Insured Name Patient Relationship to Insured Coverage Start Date Coverage End Date [facility] [address] [place], [place] [id number] December, Child - Insured has Financial Responsibility [place] [address] DENISE MENDEZ Self - patient is the insured MEDICAL (GENERAL) HISTORY Medical History History ICD Code Anxiety PTSD Fatigue Surgical History Surgery Date(Month/Year)
[2024-03-29 15:45] LABS: ALT 27 U/L (14-59); AST 15 U/L (15-37); Alkaline Phosphatase 67 U/L (46-116); Anion Gap 10.1 mmol/L (3-11); BUN 10 mg/dL (7-18); Bilirubin, Total 0.24 mg/dL (0.2-1.0); CO2 27.9 mmol/L (21.0-32.0); CREATININE 0.7 mg/dL (0.55-1.02); Calcium 9.7 mg/dL (8.5-10.1); Calculated LDL 137 mg/dL (<100); Chloride 105 mmol/L (98-107); Cholesterol 202 mg/dL (<200); Estimated GFR 119.99 (mL/min/1.73m2); Glucose 87 mg/dL (74-106); HDL Cholesterol 47 mg/dL (40-60); Potassium 4.2 mmol/L (3.5-5.1); Sodium 143 mmol/L (136-145); Total Protein 7.3 g/dL (6.4-8.2); Triglyceride 92 mg/dL (<150); Vitamin D 25 Total 28.3 ng/mL (30-100)
== END 2024-03-29 13:00 | disposition home or self-care (01) ==
LOC: NCHCN 12:59
PROVIDERS: PCP Family Medicine; Visit Provider Family Medicine
DX: E78.5 Hyperlipidemia, unspecified (principal); E55.9 Vitamin D deficiency, unspecified; E66.9 Obesity, unspecified
CPT/HCPCS: 80053; 80061; 82306

== ENCOUNTER 2024-04-19 10:29 | Day surgery (SDC) | payer MEDICAID, SELFPAY ==
[2024-04-19 10:40] VITALS: BP 116/76; PULSE 77; RESP 16; TEMP 36.6; O2SAT 98
[2024-04-19] MEDS: Celecoxib 200 MG CAP 400 MG PO (11:32)
[2024-04-19] MEDS: Acetaminophen 500 MG TAB 1000 MG PO (11:32)
[2024-04-19] MEDS: Lactated Ringers 1,000 ML 80 ML IV (11:35)
[2024-04-19] MEDS: ceFAZolin 2 GM/50 ML BAG IVPB (12:16)
[2024-04-19 12:23] VITALS: BMI 39.8
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
--- NOTE | 2024-04-19 12:36 | W.PM.DSUDISC ---
Date of service: 04/19/24 Time of Service: 12:36 Discharge Plan Disposition Patient Disposition: Home Condition: Good Discharge Details Reason For Visit: L ECTR/De Quervain's Release Attending Provider: Dennys Ortiz Primary Care Provider: Melody Koenig Home Meds and New Rx's Prescriptions: New hydrocodone-acetaminophen 5-325 mg tablet 1 tab PO Q6H PRN (Reason: pain) Qty: 6 0RF acetaminophen 500 mg tablet 1,000 mg PO TID Qty: 90 0RF ibuprofen 600 mg tablet 600 mg PO TID PRN (Reason: pain) Qty: 90 0RF Continued cyclobenzaprine 5 mg tablet 5 mg PO DAILY PRN One-A-Day Womens Formula 18 mg iron-400 mcg-500 mg tablet 1 tab PO DAILY cholecalciferol (vitamin D3) 250 mcg (10,000 unit) capsule 250 mcg PO .COMPLEX Rx Instructions: 250 mcg orally Q 2 WEEKS; Discontinued ibuprofen 800 mg tablet 800 mg PO Q8H Discharge Instructions Additional Instructions: George's Discharge Instructions Activity: You should keep the hand elevated as much as possible for the first few days. You may use the other fingers as tolerated but avoid trying to do too much too soon. You may perform light activities with the splint in place. Dressing/Cast: Your splint should stay in place at all times. Do NOT get it wet. You may loosen the VENESSA wrap if you feel it is too tight and then rewrap more loosely. Medications: - You should take Tylenol and Ibuprofen for baseline pain control. - You have Hydrocodone for breakthrough pain. - You may apply ice over the thumb. Follow-up: 7-10 days Stand Alone Forms: Diana Hercules Activity:: Elevate Remove Dressings/Wound Care:: Do Not Remove Shower/Bathe:: Cover Diet:: As Tolerated Discharge Orders Discharge Orders: Discharge Order (Routine); Ordered 04/19/24 Ordered By: Jong Hudson DS: Diagnosis Discharge Diagnosis (1) Left carpal tunnel syndrome: Status: Acute (2) De Quervain's tenosynovitis, left: Status: Acute
[2024-04-19] MEDS: Lidocaine 1% Multi-Dose W/EPI 1/100,000 50 ML VIAL (12:37)
[2024-04-19] MEDS: Sodium Bicarbonate 50 MEQ/50 ML VIAL (12:37)
[2024-04-19 12:50] VITALS: BP 116/76; PULSE 77; RESP 16; TEMP 36.6; O2SAT 98
--- NOTE | 2024-04-19 12:59 | W.PM.OP ---
Date of service: 04/19/24 Time of Service: 12:30 Operative Note Operative Note DATE OF PROCEDURE: 04/19/24 PRE-OP DIAGNOSIS: Left Carpal Tunnel Syndrome Left DeQuervian's Tenosynovitis POST-OP DIAGNOSIS: same PROCEDURE: Left Endoscopic Carpal Tunnel Release Left 1st Extensor Compartment Release SURGEON: Dennys Ortiz ANESTHESIA TYPE: General:No Airway Refer to Anesthesia Record ESTIMATED BLOOD LOSS: 0 PATHOLOGY: none sent TOURNIQUET TIME: 14 COMPLICATIONS: None Patient was transported to: same day Patient's condition: stable Indications: I have seen Isabel in clinic for symptoms of carpal tunnel syndrome and DeQuervain's tenosynovitis. The numbness, tingling, and pain limited function. Clinical exam findings confirmed the diagnosis of carpal tunnel syndrome and deQuervain's. Nonoperative measures such as bracing, time, activity modifications had been tried but disability and pain persisted. I discussed carpal tunnel and 1st extensor compartment release with the patient. I reviewed the risks of the procedure to include, but not limited to, bleeding, infection, pain, stiffness, incomplete release, damage to nerves or vessels, persistent numbness, recurrence. Despite these risks, the patient elected to proceed. Findings: There was tightened carpal tunnel. This was dilated and released successfully with the endoscopic with increased space within the tunnel. The antebrachial fascia was released proximally freeing the median nerve at the wrist. The first extensor compartment was release with a amaro of fluid. There was a subcompartment for EPB which was released. Procedure Description: Isabel was greeted in the preoperative holding area where the correct side was identified and marked. The consent was reviewed with the patient and signed. The history and physical was updated. All questions were answered. She was taken back to the operating room. The patient was placed into the supine position on the operating room table with the left arm on an arm board. A nonsterile tourniquet was placed high onto the arm. All bony prominences were well padded. Prophylactic antibiotics in the form of Cefazolin were administered. The left arm was then prepped with Chloraprep and draped in a standard fashion with stockinette and extremity drape. A timeout to confirm correct identity, side and site, procedure, allergies, anesthesia, and medical concerns was performed. The surgical site was marked in the volar wrist creases in line with the radial border of the fourth ray. This area was anesthetized with approximately 6cc of 1% Lidocaine. The proposed surgical site for the deQuervain's was also marked and anesthetized. The limb was then exsanguinated with an Esmarch. The skin was incised with a 15 blade, approximately 1cm. The skin only was cut and the deeper tissue was dissected bluntly with a tenotomy scissor, avoiding passing nerve and venous structures. The fascia was penetrated and opened bluntly. A two-prong skin hook was placed under this proximal fascial edge. A series of hamate finders were used to identify and dilate the carpal tunnel. Synovial elevator was used to free synovial attachments to the underside of the transverse carpal ligament. My thumb was kept in the palm to angie the distal extent of the carpal tunnel and correctly position the hand. The Microaire endoscope was inserted without difficulty and without resistance. Excellent visualization showed horizontally running fibers of the transverse carpal ligament (TCL). The distal extent of the TCL was visualized and the end of the scope palpated with the thumb. The blade was elevated and withdrawn from distal to proximal. The TCL was split into two flaps. The endoscope was reinserted to confirm complete release and any remnant ligament was incised. The scope was withdrawn and the proximal aspect of the carpal tunnel was grossly inspected and appeared release with the median nerve visible. The antebrachial fascia at the level of the wrist was then freed from the overlying skin and then the underlying median nerve with blunt dissection. This was transected longitudinally for about 3cm proximal to the wrist incision. The wound was then irrigated with easy flow of irrigant distally and proximally. The incision was closed with a single 4-0 Nylon suture. Attention was then turned to the first extensor compartment release. A 2 cm incision was made longitudinally over the radial styloid. The skin was incised only. The deep tissue subcutaneous fat was dissected with a tenotomy scissors trying to protect bridge of the superficial radial nerve. Any branches that were identified were retracted out of the way. The first compartment extensor tendons were then identified. The distal aspect of the first compartment was noted and were released. This release was performed more on the dorsal side to prevent tendon subluxation. The entirety of the first extensor compartment was then released. The slips of the abductor pollicis longus tendon were inspected. They removed to confirm the appropriate motion of the thumb. The extensor pollicis brevis tendon was then identified. There was a single subcompartment encasing the EPB tendon. It was fully released. Traction on the tendon was also used to confirm appropriate extension of the thumb confirming the release of the appropriate tendon. The dorsal radial surface of the radius was once again inspected to make sure there is no other sub-compartments or other restrictions to tendon motion. The wound was then thoroughly irrigated. The deep tissue was closed with a 3-0 Vicryl. The skin was closed with a running subjective 4-0 Monocryl. The tourniquet is released without significant bleeding. The hand was dressed with Xeroform, 4 x 4's, Kerlex and VENESSA wrap into a soft thumb spica splint. All counts were correct. Patient was transferred back to same day surgery area in stable condition.
--- NOTE | 2024-04-19 13:18 | W.ANESPOSTOP ---
Postoperative Evaluation Date, Time and Location Date Performed: 04/19/24 Time Performed: 13:18 Patient Location: Day Surgery Unit Vital Signs Most Recent Imported Vital Signs: Most Recent Vital Signs Temp Pulse Resp BP Pulse Ox 36.6 C 77 16 116/76 98 04/19/24 12:50 04/19/24 12:50 04/19/24 12:50 04/19/24 12:50 04/19/24 12:50 Pain Score Most Recent Pain Score: Most Recent Pain Score Pain Level 2 04/19/24 12:50 Assessment Mental Status: Awake (Alert & Oriented to Patient Baseline) Airway and Respiratory Function: Patent airway with normal (patient baseline) respiratory exam Cardiovascular Function: Hemodynamically Stable Hydration Status: Adequately Hydrated Nausea & Vomiting: No Nausea or Vomiting Pain: Pain is tolerable per patient Peripheral Nerve Block: Patient did not receive a nerve block
[2024-04-19 13:31] VITALS: BP 103/62; PULSE 65; RESP 16; TEMP 36.5; O2SAT 100
== END 2024-04-19 14:10 | disposition home or self-care (01) ==
PROVIDERS: PCP Family Medicine; Visit Provider Student in an Organized Health Care Education/Training Program
PROC: 01N54ZZ Release Median Nerve, Percutaneous Endoscopic Approach (ICD-10-PCS; CPT 29848; 2024-04-19 13:00)
DX: G56.02 Carpal tunnel syndrome, left upper limb (principal); M65.4 Radial styloid tenosynovitis [de Quervain]
CPT/HCPCS: 29848; 25000; 81025; J0690; J2001; J2004; J2250; J2704

== ENCOUNTER 2024-05-04 18:48 | Outpatient (REF) | payer MEDICAID, SELFPAY ==
[2024-05-04 16:40] LABS: Abs Immature Grans 0.03 10^3/uL (0.0-0.06); Absolute Basophil Count 0.03 10^3/uL (0.0-0.2); Absolute Eosinophil Count 0.07 10^3/uL (0.0-0.7); Absolute Lymphocyte Count 2.44 10^3/uL (1.2-3.4); Absolute Monocyte Count 0.61 10^3/uL (0.1-0.8); Absolute Neutrophil Count 5.31 10^3/uL (1.2-6.7); Basophils % 0.4 %; Eosinophils % 0.8 %; HGB 14.3 g/dL (11.2-15.7); Immature Grans % 0.4 %; Lymphocytes % 28.7 %; MCH 28.8 pg (27.0-33.0); MCHC 33.3 % (32.0-36.0); MCV 87 fL (80-95); Monocytes % 7.2 %; Neutrophils % 62.5 %; Platelet Count 164 10^3/uL (130-400); RBC 4.96 10^6/uL (3.93-5.22); RDW 13.2 % (11.7-14.6); RDW-SD 41.8 fL; WBC 8.49 10^3/uL (4.4-10.8)
[2024-05-04 17:24] LABS: ALT 27 U/L (14-59); AST 15 U/L (15-37); Albumin 4.1 g/dL (3.4-5.0); Alkaline Phosphatase 65 U/L (46-116); Anion Gap 11.8 mmol/L (3-11); BUN 13 mg/dL (7-18); Bilirubin, Total 0.42 mg/dL (0.2-1.0); CO2 25.2 mmol/L (21.0-32.0); CREATININE 0.8 mg/dL (0.55-1.02); Calcium 8.9 mg/dL (8.5-10.1); Calculated LDL 143 mg/dL (<100); Chloride 103 mmol/L (98-107); Cholesterol 202 mg/dL (<200); Estimated GFR 102.22 (mL/min/1.73m2); Glucose 91 mg/dL (74-106); HDL Cholesterol 41 mg/dL (40-60); Sodium 140 mmol/L (136-145); TSH (W/Ref FT4) 1.35 uIU/mL (0.36-3.74); Total Protein 7.5 g/dL (6.4-8.2); Triglyceride 92 mg/dL (<150); Vitamin B12 728 pg/mL (193-986); Vitamin D 25 Total 28.4 ng/mL (30-100)
--- OUTSIDE RECORDS SUMMARY | 2024-05-04 18:58 | XMS_ITS | Encounter Summary ---
[place] [address] Care Team Providers Care Carpet Sewer Name Role Phone Analisa Martinez Primary Care Provider [phone] Encounter Details Date Type Department Care Team (Late st Contact Info) Description 04/23/2023 Telephone Obstetrics [place] [phone] Mery Braswell, RN Social History Tobacco Use Types Packs/Day Years Used Date Smoking Tobacco: Every Day Cigarettes Smokeless Tobacco: Never Comments:Cut back from 2 pac ks Alcohol Use Standard Drinks/Week Comments Not Currently 0 (1 standard drink = 0.6 oz pur e alcohol) IPV Inpatient Questions Answer Date Recorded Does Anyone Try to Keep You From Having Contact with Others or Doing Things Outside Your Home? no 04/24/2023 Feels Threatened by Someone no 03/28 Feels Unsafe at Home or Work/School no 04/24/2023 Physical Signs of Abuse Present no 04/24/2023 Sex and Gender Information Value Date Recorded Sex Assigned at Not on file Gender Identity Not on file Sexual Orientation Not on file documented as of this encounter Miscellaneous Notes * Telephone Encounter - Mery Braswell RN - 04/23/2023 4:15 PM EDT Isabel Julian is 11 days pp, MFM patient whose baby is in the ICN. She is calling today to report that her baby's provider diagnosed him with thrush. They recommended that Isabel call her OB provider to get a prescription for this as well. Routed note to [facility] on-call, Dr. Haas. documented in this encounter Plan of Treatment Not on file documented as of this encounter Visit Diagnoses Not on filedocumented in this encounter Care Teams Carpet Sewer Relationship Specialty Start Date End Date Analisa Martinez PA [address] [place] [address] PCP - General 11/30/22 documented as of this encounter
--- OUTSIDE RECORDS SUMMARY | 2024-05-04 18:58 | XMS_ITS | Encounter Summary ---
Author Organization [facility] [place] [address] Care Team Providers Care Structural Steel Worker Apprentice Name Role Phone Analisa Martinez Primary Care Provider [phone] Encounter Details Date Type Department Care Team (Late st Contact Info) Description 04/24/2023 Telephone Obstetrics [place] [id number] Vicente Zhang MD [facility] OBSTETRICS & [place] [address] Social History Tobacco Use Types Packs/Day Years [...] encounter Miscellaneous Notes * Telephone Encounter - Vicente Zhang MD - 04/24/2023 9:18 AM EDT Telephone Phone Note Isbael is a 27yo now POD#12 from an uncomplicated section calling with incisional concernsthis AM. Has noticed some clear drainage from her incision (approx 5-6 cc), had a small amount of drainage earlier this week as well. Denies fevers, chills. Tolerating PO intake. Pain well controlledon Tylenol and ibuprofen. Incision still well approximated. Reviewed with patient that this is likely c/w a normal post-operative course, incision examined on 04/20/2023 without any issues or concerns. Offered patient evaluation in triage today vs. continued monitoring over the next 12 hours. still [facility] would like to come by to triage for evaluation. family service worker updated. Vicente Zhang MD, PGY3 Obstetrics and Gynecology 04/24/2023 documented in this encounter Plan of Treatment Not on file documented as of this encounter Visit Diagnoses Not on filedocumented in this encounter Care Teams Structural Steel Worker Apprentice Relationship Specialty Start Date End Date [place]isa [place] [address] PCP - General 11/30/22 documented as of this encounter
--- OUTSIDE RECORDS SUMMARY | 2024-05-04 18:58 | XMS_ITS | Encounter Summary ---
Author Organization [facility] [place] [address] Care Team Providers Care Cement Patcher Name Role Phone Analisa Martinez Primary Care Provider [phone] Encounter Details Date Type Department Care Team (Late st Contact Info) Description 04/26/2023 Telephone Obstetrics [place] [phone] Helene Omer MD [facility] OBSTETRICS & [place] [address] Social History Tobacco Use Types Packs/Day Years [...] encounter Miscellaneous Notes * Telephone Encounter - Helene Omer MD - 04/26/2023 7:06 PM EDT Returned phone call to Isabel this evening. She was seen on the on 04/24 for c/f wound infection following repeat section on 04/12 and prescribed Clindamycin. She was calling because she ishaving nausea after taking her medication. She notes she has not been taking the medication with food, but when she did eat a hot dog, she threw up. She is also having diarrhea since starting clindamycin. She is wondering if there is anything she can do to improve her nausea. We discussed making sure she is taking her medication with food and provided reassurance that GI upset is a common side effect of the antibiotic. Offered her Zofran for nausea, but patient declines at this time. She is supposed to have follow up in clinic on Wednesday, but this is currently not scheduled. Will request follow up for Wednesday. Helene Omer MD PGY1 OBGYN documented in this encounter Plan of Treatment Not on file documented as of this encounter Visit Diagnoses Not on filedocumented in this encounter Care Teams Cement Patcher Relationship Specialty Start Date End Date Analisa Martinez PA [address] [place] [address] PCP - General 11/30/22 documented as of this encounter
--- OUTSIDE RECORDS SUMMARY | 2024-05-04 18:58 | XMS_ITS | Encounter Summary ---
[place] [address] Care Team Providers Care Typing Section Chief Name Role Phone Analisa Martinez Primary Care Provider [phone] Encounter Details Date Type Department Care Team (Late st Contact Info) Description 04/20/2023 Telephone Obstetrics [place] [address] Maribell Torres RN Social History Tobacco Use Types Packs/Day Years Used Date Smoking Tobacco: Every Day Cigarettes Smokeless Tobacco: Never Comments:Cut back from 2 pac ks Alcohol Use Standard Drinks/Week Comments Not Currently 0 (1 standard drink = 0.6 oz pur e alcohol) Sex and Gender Information Value Date Recorded Sex Assigned at Not on file Gender Identity Not on file Sexual Orientation Not on file documented as of this encounter Miscellaneous Notes * Telephone Encounter - Maribell Torres RN - 04/20/2023 2:04 PM EDT Incoming TC from Isabel Julian 27 y.o. s/p repeat 04/12 at 36 weeks d/t thin lower uterine segment noted. Patient calling to discuss edema below incision. Patient reports swelling is uncomfortable to her and pain worsens with movement/ambulation. Pain is best when she is at rest. She is taking 800mg of ibuprofen and 975mg of acetaminophen as needed per package instructions. Deniesdrainage from incision and erythema. Denies abnormal vaginal discharge and heavy vaginal bleeding. Patient requests incision check appointment. Appointment made for 2:30pm. documented in this encounter Plan of Treatment Not on file documented as of this encounter Visit Diagnoses Not on filedocumented in this encounter Care Teams Typing Section Chief Relationship Specialty Start Date End Date Analisa Martinez PA [address] [place] [address] PCP - General 11/30/22 documented as of this encounter
--- OUTSIDE RECORDS SUMMARY | 2024-05-04 18:58 | XMS_ITS | Encounter Summary ---
[place] [address] Care Team Providers Care Slot Floor Supervisor Name Role Phone Analisa Martinez Primary Care Provider [phone] Encounter Details Date Type Department Care Team (Late st Contact Info) Description 04/29/2023 Telephone Obstetrics [place] [address] Macarena Priest RN Social History Tobacco Use Types Packs/Day [...] encounter Miscellaneous Notes * Telephone Encounter - Macarena Priest RN - 04/29/2023 11:48 AM EDT Isabel Eliel 2w PP MFM Reason for call: 2w PP check in Tried to call pt, got VM for spouse. Will send [facility]. documented in this encounter Plan of Treatment Not on file documented as of this encounter Visit Diagnoses Not on filedocumented in this encounter Care Teams Slot Floor Supervisor Relationship Specialty Start Date End Date Analisa Martinez PA [address] [place] [address] PCP - General 11/30/22 documented as of this encounter
--- OUTSIDE RECORDS SUMMARY | 2024-05-04 18:58 | XMS_ITS | Encounter Summary ---
Author Organization [facility] Address [facility] [place] [address] Care Team Providers Care Grain Drier Name Role Phone Analisa Martinez Primary Care Provider [phone] Encounter Details Date Type Department Care Team (Late st Contact Info) Description 05/31/2023 Telephone Obstetrics [place] [phone] Sharla Garvey MD [facility] OBSTETRICS & [place] [address] Social History Tobacco Use Types Packs/Day Years Used Date Smoking Tobacco: Every Day Cigarettes Smokeless Tobacco: Never Comments:Cut back from 2 pac ks Alcohol Use Standard Drinks/Week Comments Not Currently 0 (1 standard drink = 0.6 oz pur e alcohol) Overall Financial Resource Strain (CARDIA) Answe r Date Recorded How hard is it for you to pa y for the very basics like food, housing, medical care, and heating? Not hard at all 05/24/2023 Hunger Vital Sign Answer Date Recorded Within the past 12 months, y ou worried that your food would run out before you got the money to buy more. Never true 05/24/20 23 Within the past 12 months, t he food you bought just didn't last and you didn't have money to get more. Never true 05/24/2023 PRAPARE - Transportation Answer Date Re corded In the past 12 months, has l ack of transportation kept you from medical appointments or from getting medications? No 04/28 In the past 12 months, has l ack of transportation kept you from meetings, work, or from getting things needed for daily living? No 05/24/2023 Housing Stability Vital Sign Answer Michael e Recorded In the last 12 months, was t here a time when you were not able to pay the mortgage or rent on time? Yes 05/21/2023 In the last 12 months, how many places have you lived? 1 05/21/2023 In the last 12 months, was t here a time when you did not have a steady place to sleep or slept in a intermediate (including now)? No 05/21/2023 IPV Inpatient Questions Answer Date Recorded Does [...] encounter Miscellaneous Notes * Telephone Encounter - Sharla Garvey MD - 05/31/2023 1:43 PM EDT Automotive Instructor Telephone Note Patient ID: Isabel Julian is a 27 y.o. . Pt is s/p RCS and BS 04/12/2023. Pt confirmed by full name and . Pt states she was told by [facility] to call and notify [facility] that she had some back pain and that she went to [facility] and is now being treated for a PE following CT. Said she was told she has clots in the bottom of her left lung. She is on Lovenox 130 mg daily x 3 mo. She weights 190lbs. She has a PCP and Rug Measurer whom she will see tomorrow. Diagnosis added to pt chart. As pt is establishing care w/ PCP and Rug Measurer, discussed that these are appropriate for management. Reviewed warning signs to present to closest ED (SOB, chest pain, concerns). Sharla Garvey MDY PGY4 documented in this encounter Plan of Treatment Not on file documented as of this encounter Visit Diagnoses Diagnosis Other acute pulmonary embolism with acute cor pulmonale documented in this encounter Care Teams Grain Drier Relationship Specialty Start Date End Date Analisa Martinez PA [address] [place] [address] PCP - General 11/30/22 documented as of this encounter
--- OUTSIDE RECORDS SUMMARY | 2024-05-04 18:58 | XMS_ITS | Encounter Summary ---
Author Organization [facility] Address [facility] [address] Care Team Providers Care Boat Tender Name Role Phone Analisa Martinez Primary Care Provider [phone] Encounter Details Date Type Department Care Team (Latest Contact Info) Description 04/20/2023 Encounter Social History Tobacco Use Types Packs/Day Years [...] as of this encounter Miscellaneous Notes * Note - Deanna Estrada RN - 04/20/2023 4:54 PM EDT This note was copied from a baby's chart. Services Note: S/O 15:00 Met with Isabel as she and Carl were visiting misha Milner this afternoon. She reports she has been trying to pump about every three hours and has a very varied milk production. She reports she typically will express no less than 45 milliliters per breast but has also found she can pumpas much as 8 ounces at a session. Feels her supply is good at this time. She offered Annia a breast visit on the left side in football hold. Offered verbal suggestions on positioning to be sure Annia is tucked closely against mom's body with her chest/abdomen tucked against mom's breast and baby's ear, shoulder and hip in alignment. Mom does well making a compression sandwich for baby to grasp her nipple/areolar complex. Baby was alert cueing at attempt. She would latch on and hold maternal nipple but did not actively suck despite Isabel expressing drops of milk for baby. Baby would detach and nuzzle and then re-latch with few sucks noted. Of note Isabel is struggling with painful edema post in the lower half of her body. She had a follow up visit with her obstetrics team today and was encouraged to rest. Isabel feels she needs to visit her baby daily to help protect herself from post depression and anxiety. She reportsshe feels being with her baby helps these issues the most. She reports she does have a therapist she can reach out to for support and has a follow up visit in early April already set up. A Mom pumping per recommended guidelines, has a good milk supply thus far, baby starting to exhibitsome interest in breast feeding sessions, had a more non nutritive breast visit this session. P Offered support and encouragement. Would recommend Isabel offer breast visits and feeding sessions at early feeding cues. May offer supplementation per ICN guidelines after breast feedings via gavage or if baby is very awake and cueing interest may try bottle feeding supplement. Keep oral feeds gentle and positive supporting baby's feeding cues. Isabel will need to pump her breast milk about 8 times in 24 hours. She should pump both breasts atthe same time for 15-20 minutes at a session using a double electric breast pump, preferably the hospital grade Medela Symphony breast pump for her sessions. Breast massage and manual expression may help milk production. Isabel may apply moist heat to her breasts for a few minutes just prior to pump ing sessions and ice packs afterwards for 10-15 minutes to help manage breast engorgement symptoms as needed. 20 minutes spent offering support and education to this mother, Isabel verbalized understanding of education provided. will continue to follow. Deanna Etsrada RN IBCLC [facility] Services will continue to follow. documented in this encounter Plan of Treatment Not on file documented as of this encounter Visit Diagnoses Not on filedocumented in this encounter Care Teams Boat Tender Relationship Specialty Start Date End Date Analisa Martinez PA [address] [place] [address] PCP - General 11/30/22 documented as of this encounter
--- OUTSIDE RECORDS SUMMARY | 2024-05-04 18:58 | XMS_ITS | Encounter Summary ---
[place] [address] Care Team Providers Care News Internship Name Role Phone Analisa Martinez Primary Care Provider [phone] Encounter Details Date Type Department Care Team (Latest Contact Info) Description 04/20/2023 2:30 PM EDT Clinical Support Obstetrics [place] [address] H/O section Social History Tobacco Use Types Packs/Day Years [...] on file documented as of this encounter Last Filed Vital Signs Vital Sign Reading Time Taken Comments Blood Pressure 119/68 04/20/2023 2:45 PM EDT Pulse 74 04/20/2023 2:45 PM EDT Temperature 36.9 ??C (98.5 ??F) 04/20/2023 2:45 PM ED T Respiratory Rate 22 04/20/2023 2:45 PM EDT Oxygen Saturation 98% 04/20/2023 2:45 PM EDT Inhaled Oxygen Concentration - - Weight - - Height - - Body Mass Index - - documented in this encounter Progress Notes * Maribell Torres RN - 04/20/2023 2:30 PM EDT Lochia: Flow is light with reddish brown colored lochia. Patient reports changing a pad 1-2 times per day. Incision assessment: Redness: None Edema: None over incision. Mild edema over [place] Pub[place]. Spoke with NPOC who advised patient to increase rest/having lower extremities elevated, heat pack to assist with depend edema, and to continue to monitor. Educated patient to call back into office if attempting these measures and not have further improvements. Bruising/ecchymosis: None Discharge: None Approximation: Well approximated. Pain: 2-3/10. No ibuprofen or acetaminophen today. Last dose of ibuprofen and acetaminophen at 7pm. Patient denies dysuria, fevers, chills, malodorous vaginal discharge, malaise, nausea, vomiting, and stool changes. Patient Vitals for the past 24 hrs: Temp Pulse Resp BP SpO2 04/20/23 1445 36.9 ??C (98.5 ??F) 74 22 119/68 98 % documented in this encounter Plan of Treatment Not on file documented as of this encounter Visit Diagnoses Diagnosis H/O section Other postprocedural status documented in this encounter Care Teams News Internship Relationship Specialty Start Date End Date Analisa [place] [address] PCP - General 11/30/22 documented as of this encounter
--- OUTSIDE RECORDS SUMMARY | 2024-05-04 18:58 | XMS_ITS | Encounter Summary ---
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 Name Role Phone Analisa Martinez Primary Care Provider [phone] Reason for Visit * Auth/Cert (Routine) Specialty Diagnoses / Procedures Referred By Contac t Referred To Contact Diagnoses Wound infection after surgery Procedures EMERGENCY IPI Casey Armendariz MD [facility] [place] [address] [facility] Referral ID Status Reason Start Date Expiration Date Visits Re quested Visits Authorized [id number] 1 1 Encounter Details Date Type Department Care Team (Latest Contact Info) Description 04/24/2023 1:36 PM EDT - 04/24/2023 11:01 PM EDT Hospital [place] [address] Casey Armendariz MD [facility] [place] [address] Discharge Disposition: Home Social History Tobacco Use Types Packs/Day Years [...] Sign Reading Time Taken Comments Blood Pressure 116/62 04/24/2023 7:45 PM EDT Pulse 76 04/24/2023 7:45 PM EDT Temperature 36.6 ??C (97.9 ??F) 04/24/2023 7:45 PM ED T Respiratory Rate 18 04/24/2023 7:45 PM EDT Oxygen Saturation - - Inhaled Oxygen Concentration - - Weight - - Height - - Body Mass Index - - documented in this encounter Discharge Summaries * Fide Haas MD - 04/24/2023 11:01 PM EDT Discharge Summary Patient Name: Isabel Julian Patient Age: 27 y.o. Language: Micronesian Race: White Ethnicity: Not nor Admit date: 04/24/2023 Discharge date and time: 05/04/2023 Attending Physician: No att. providers found Discharge Physician: Dr. Fide Haas Care Provider: [facility] Referring Hospital: N/A Follow-up Recommendations for Providers: - 2 week mood check - 6 week visit Inpatient Provider Contact Information: [facility] SPECIALIST Department, Discharge Diagnoses (Hospital Problems) and Secondary Diagnoses (Chronic Problems) Active Hospital Problems Diagnosis Wound infection after surgery Resolved Hospital Problems No resolved problems to display. Active Non-Hospital Problems Diagnosis H/O section labor History of rupture of uterus Previous delivery affecting Operations/Major Procedures: 04/12/2023 - scheduled repeat section, bilateral salpingectomy Indication for Admission: scheduled elective section History of Presentation: Isabel Julian is a 27 y.o. at 36w2d gestation being admitted for scheduled repeat section. Admission History (per admit note cut and paste) HPI: Isabel is doing well this morning, expecting baby girl Fabio. Feeling some contractions but intermittently. No vaginal bleeding or loss of fluid. Requests bilateral salpingectomy at time of delivery for permanent contraception. Her has been complicated by: Hx CS x2 with thin lower uterine segment doted at time of second . Plan 04/12 with BMZ 04/07 and 04/08. Lower uterine segment 1.2mm-1.5mm at the thinnest 02/19/23. Notch at prior CS scarsite 3mm 12/25/22. Placenta posterior. Desires sterilization at time of repeat TUD: began at 2 PPD and now down to 1/2 PPD. Declines nicotine patches while inpatient due to reaction to adhesive. Hospital Course Including Delivery and Events Isabel Julian is a 27 y.o. at 36w2d admitted for scheduled repeat section with bilateral salpingectomy in setting of thin lower uterine segment noted on US (1.2mm at thinnest point), otherwise complicated by prior C/S x2, tobacco use disorder. Patient underwent repeat low transverse section complicated by significant intraabdominal adhesions, and uterine atony for which she received TXA x2, methergine, and misoprostol. Viable female . APGARS of 5 and 6. Weight of 2890g. Cord gases were obtained. QBL 880 mL Her post-operative course was uneventful. Her post-operative hemoglobin was 10.4, for which she wasinstructed to continue her vitamins and start iron supplementation. Her pain was well controlled with oral pain medications. She was tolerating a regular diet, was ambulating and voiding without difficulty, and was passing flatus. Her fundal exam was as expected, and her lochia was within normal limits. She was establishing pumping for feeding of her in the ICN. Patient is s/p bilateral salpingectomy for contraception. She was discharged to home on POD#3 with plans for follow up in clinic as above. Due to her post-operative pain the patient was given a prescription for oxycodone to take only for breakthrough pain not responsive to acetaminophen and ibuprofen. She was counseled regarding the dangers of these medications including sedation which would impair her ability to drive safely. The potential for addiction with continued use of narcotic was discussed and the need to stop use as soon as possible. It was recommended that she promptly destroy unused medication or take them back to dropbox locations. The opioid risk assessment was done, opioid informed consent reviewed and signed by patient, PDMP query completed. Discharge instructions discussing the risk of opioids are included in her discharge instructions which are printed and given to the patient at discharge. Delivery Information Information for the patient's : Annia Prakash [[id number]] INFORMATION Annia Prakash 04/12/2023 4:21 PM by Lower Segment Transverse Sex: female Gestational Age: 36w2d Crapo Measurements: Weight: 6 lb 5.9 oz (2890 g) APGARS One Minute Five Minutes Ten Minutes Totals: 5 6 Blood Loss: OB OR Quantitative Blood Loss Totals 04/12/23 1300 - 04/12/23 1438 None Vital signs at Discharge: BP: 116/62, Heart Rate: 76, Temp: 36.6 ??C (97.9 ??F), Resp: 18, Functional and Cognitive status: Intact Important Studies and Lab Data: Labs: Last wbc, hgb, hct plt No results for input(s): WBC, HGB, HCT in the last 72 hours. Invalid input(s): PLT No results found for this or any previous visit (from the past 72 hour(s)). Studies: None Pending Studies and Lab Data: Pathology for Placenta, fallopian tubes Discharge Conditions/Prognosis: good Discharge to: Home Contraceptive Plans: BS at time of CS Allergies at Discharge: Allergies Allergen Reactions Environmental [Latex, Natural Rubber] Rash Penicillins Varicella Vaccines Hives Immunizations Given this Hospitalization: There is no immunization history on file for this patient. Discharge Medications: Your Medications New Medications Dose Details clindamycin 150 mg capsule Commonly known as: Cleocin Take 3 capsules by mouth 3 times daily for 30 doses. 450 mg Quantity: 90 capsule Refills: 0 Continued medications, unchanged Dose Details acetaminophen 325 mg tablet Commonly known as: Tylenol Take 3 tablets by mouth every 6 hours. 975 mg Quantity: 60 tablet Refills: 0 ferrous gluconate 324 mg (37.5 mg iron) tablet Commonly known as: Ferate Take 324 mg by mouth daily. 324 mg Refills: 0 fluconazole 200 mg tablet Commonly known as: Diflucan Take 1 tablet by mouth daily. 200 mg Quantity: 14 tablet Refills: 0 ibuprofen 800 mg tablet Commonly known as: Advil Take 1 tablet by mouth every 6 hours. 800 mg Quantity: 60 tablet Refills: 0 vitamin 27 & [id number] 60 mg iron-1 mg Tablet Take 1 tablet by mouth daily. 1 tablet Refills: 0 STOPPED Medications lidocaine 5% Adhesive Patch, Medicated Commonly known as: Lidoderm oxyCODONE 5 mg tablet Commonly known as: Roxicodone pantoprazole EC [address] tablet Commonly known as: Protonix polyethylene glycoL 17 gram oral powder packet Commonly known as: Miralax UNREVIEWED medications - Discuss With Your Provider Dose Details docusate sodium 100 mg capsule Commonly known as: Colace Take 1 capsule by mouth 2 times daily for 10 days. Ask about: Should I take this medication? 100 mg Quantity: 20 capsule Refills: 0 Smoking Status at Discharge: Social History Tobacco Use Smoking Status Every Day Packs/day: 0.50 Types: Cigarettes Smokeless Tobacco Never Tobacco Comments Cut back from 2 packs Instructions Given to Patient at Discharge: There are no outpatient Patient Instructions on file for this admission. General Instructions None Future Appointments and Orders Future Appointments and Orders Future Appointments Provider Department Dept Phone 05/05/2023 10:00 AM Sophie Scanlon MD Obstetrics and Gynecology at [facility] Arrive at: Supervisor Hydrochloric Area Area [phone] 05/24/2023 1:45 PM Nitza Murguia MD Obstetrics and Gynecology at [facility] Arrive at: Supervisor Hydrochloric Area Area [phone] Discharge References/Attachments None Hypotension due to anesthesia induced documented in this encounter Medications at Time of Discharge Medication Sig Dispensed Refills Start Date End Date clindamycin (Cleocin) 150 mg capsule Take 3 capsules by mouth 3 times daily for 30 doses. 90 capsule 04/24/2023 05/04/2023 fluconazole (Diflucan) 200 mg tablet Take 1 tablet by mouth daily. 14 tablet 04/23/2023 05/05/2023 oxyCODONE (Roxicodone) 5 mg tablet Take 1 tablet by mouth every 4 hours as needed for Pain (for pain scale 6-8). 7 tablet 04/16/2023 04/28/2023 docusate sodium (Colace) 100 mg capsule Take 1 capsule by mouth 2 times daily for 10 days. 20 capsule 04/15/2023 04/25/2023 acetaminophen (Tylenol) 325 mg tablet Take 3 tablets by mouth every 6 hours. 60 tablet 04/15/2023 05/24/2023 ibuprofen (Advil) 800 mg tablet Take 1 tablet by mouth every 6 hours. 60 tablet 04/15/2023 05/24/2023 lidocaine (Lidoderm) 5% Adhesive Patch, Medicated Apply 1 patch onto the skin daily. (leave on for 12 hours and remove for 12 hours) 12 patch 04/15/2023 04/28/2023 polyethylene glycoL (Miralax) 17 gram oral powder packet Take 17 g by mouth daily. 14 each 04/15/2023 04/28/2023 pantoprazole EC (Protonix) 40 mg Tablet, Delayed Release (E.C.) 10/29/2022 04/28/2023 ferrous gluconate (Fergon) 324 mg (37.5 mg iron) Tablet Take 324 mg by mouth daily. 05/24/2023 vitamin 27 & [id number] 60 mg iron-1 mg Tablet Take 1 tablet by mouth daily. 05/24/2023 documented as of this encounter Progress Notes * Shena Hook RN - 04/24/2023 9:25 PM EDT Discharge education provided to pt. With instructions for home antiobiotics. Pt. Ambulating well with plans to take daughter home with . * Nitza Rodriguez MD - 04/24/2023 8:21 PM EDT OB Attending note I was called in for backup at which time I was informed that Isabel would likely be going back to the OR tpmorrow during the day when I am the attending for an I&D of her section seroma.At that time I reviewed the chart, examined her wound and discussed plan with Isabel. 27 y/o s/p repeat section on 04/12/23. Was doing well post op with no concerns until 2 daysago when her wound started leaking fluid- serosanguinous. She called the BP today because she was visiting her baby in the [facility] and wanted to get checked out. No redness or pain around the incision. No fevers or chills. Otherwise feeling well and plan was for d/c home from [facility] today for baby. On she was examined by Dr. Armendariz and the resident OB team. Probed wound and concern re possible purulent fluid. CT scan obtained which showed 2 fluid collections in the subcutanous tissue- 6cm and 4cm in largest dimensions respectively. Some inflammatory changes. IMPRESSION 1. Two small fluid collections in the anterior pelvic wall subcutaneous tissue with surrounding edema or possibly phlegmonous material and inflammatory findings. Evolving abscess is not excluded. Recommendation made for wound opening and debridement with wound vac and healing by secondary intention. Added on as D case. When I went to see Isabel she was very distressed and reported not wanting to have surgery. Says she has no pain and is not concerned it is infected, distressed that now she has to stay overnight andbaby can't go home from [facility] Does not want surgery. We reviewed her hx, I examined her wound which appears well healed except for a very small <0.5cm area where it is draining serosanguineous fluid, no surrounding erythema/warmth or tenderness. We reviewed CT images together and discussed that most likely she has 2 seromas although we can not completely r/o superinfection of these. No CBC obtained so will get one now but my suspicion for infection is low. We reviewed that seromas can get infe cted and we can not completely r/o the possibility she may need to go to the OR at a later date if these become abscesses but can do PO antibiotics to try to prevent this and the fact that they are draining spontaneously is a good thing. She STRONGLY desires to avoid surgery and is willing to take this risk- knows to watch incision for redness/pain and fever. Will d/c home on PO clindamycin (one dose one before she goes, will nut picker rest @ pharmacy in AM) and f/u in clinic next Wednesday for exam. She understands return precautions. Nitza Rodriguez MD documented in this encounter H&P Notes * Risa Anne MD - 04/24/2023 2:54 PM EDT History & Physical Problem List: Active Hospital Problems Diagnosis Wound infection after surgery Resolved Hospital Problems No resolved problems to display. Active Non-Hospital Problems Diagnosis H/O section labor History of rupture of uterus Previous delivery affecting Reason for Visit: 27 y.o. Female presents to [facility] with concern for wound infection. History of Present Illness: Isabel is a 27 year old G4 now P2113, now POD#12 s/p scheduled repeat and bilateral salpingectomy who presents for concern for wound infection. She presents with her partner, who assists inrelaying the history. Notes that in the last 24 hours, has had significant drainage from Pfannenstiel incision. Drainage clear to [id number]. Patient provides pictures and notes that she soaked through 3-4 ABD pads in the last 24 hours, including one pad which was soaked through on just the drive in the car to the hospital. Notes drainage worse with standing, ambulating. Denies visible skindehiscence. ROS as below. Denies attempted treatment. Still able to ambulate, void spontaneously, tolerating a diet, having bowel movement. No attempted treatment. Delivery itself was notable for significant intraabdominal adhesions as well as concern for uterineatony, which was treated with TXA, methergine, and misoprostol. QBL ultimately 880 mL. course was largely unremarkable. Review of Systems: Review of Systems Constitutional: Negative for chills, diaphoresis and fever. Respiratory: Negative for cough. Cardiovascular: Negative for chest pain. Gastrointestinal: Negative for abdominal distention, abdominal pain, diarrhea, nausea and vomiting. Genitourinary: Positive for vaginal bleeding (minimal lochia). Negative for difficulty urinating. Past Medical and Surgical History: Past Medical History: Diagnosis Date Asthma Past Surgical History: Procedure Laterality Date SECTION SECTION PRO DELIVERY ONLY Bilateral 04/12/2023 @ DELIVERY (WRVU 16.13) performed by Mary Headley MD at [facility] PRO LIGATE FALLOPIAN TUBE, N/A 04/12/2023 @FALLOPIAN TUBE(S), TRANSECTION OR LIGATION, ABD APPROACH, POST- (WRVU 5.28) performed by Mary Headley MD at [facility] Past Obstetric History: OB History Para Term AB Living 4 3 2 1 1 3 SAB IAB Ectopic Multiple Live Births 1 0 0 0 3 Prior To Admission Medications: Medications Prior to Admission Medication Sig Dispense Refill Last Dose fluconazole (Diflucan) 200 mg tablet Take 1 tablet by mouth daily. 14 tablet 0 oxyCODONE (Roxicodone) 5 mg tablet Take 1 tablet by mouth every 4 hours as needed for Pain (for pain scale 6-8). 7 tablet 0 acetaminophen (Tylenol) 325 mg tablet Take 3 tablets by mouth every 6 hours. 60 tablet 0 docusate sodium (Colace) 100 mg capsule Take 1 capsule by mouth 2 times daily for 10 days. 20 capsule 0 ibuprofen (Advil) 800 mg tablet Take 1 tablet by mouth every 6 hours. 60 tablet 0 lidocaine (Lidoderm) 5% Adhesive Patch, Medicated Apply 1 patch onto the skin daily. (leave on for 12 hours and remove for 12 hours) 12 patch 0 polyethylene glycoL (Miralax) 17 gram oral powder packet Take 17 g by mouth daily. 14 each 0 pantoprazole EC (Protonix) 40 mg Tablet, Delayed Release (E.C.) ferrous gluconate (Fergon) 324 mg (37.5 mg iron) Tablet Take 324 mg by mouth daily. vitamin 27 & [id number] 60 mg iron-1 mg Tablet Take 1 tablet by mouth daily. Allergies: Allergies Allergen Reactions Environmental [Latex, Natural Rubber] Rash Penicillins Varicella Vaccines Hives Family History: Family History Problem Relation Age of Onset Rheumatoid Arthritis Paternal Grandmother Social History and Habits: tobacco use Physical Exam: Last Set of Vitals: Last value Range last 24 hrs Temperature Temp: -- Heart Rate Heart Rate: -- Blood Pressure BP: -- Respiratory Rate Resp: -- SpO2 SpO2: -- Physical Exam: General: Alert, oriented, NAD HEENT: Nares patent, NCAT Resp: no increased work of breathing Ab: soft, nondistended, nontender to palpation, no masses or hepatosplenomegaly; incision without surrounding erythema, compression around incision expresses serosanguinous drainage; probing of incision with expression of seropurulent fluid Ext: WWP, nonedmatous Neuro: grossly normal strength, no obvious focality Diagnostic Tests/Procedures Ordered: Results for orders placed or performed during the hospital encounter of 04/24/23 CT Pelvis Soft Tissue (GI [facility]UISE STAFF MEMBER) w Contrast (Exam End: 04/24/2023 4:06 PM) Impression 1. Two small fluid collections in the anterior pelvic wall subcutaneous tissue with surrounding edema or possibly phlegmonous material and inflammatory findings. Evolving abscess is not excluded. Preliminary report signed by: Fide Elizalde at 04/24/2023 5:24 PM I have personally reviewed the image(s) and the resident's interpretation and agree with the findings, Lisha Bolton MD at 04/24/2023 6:01 PM Thank you for letting us participate in the care of this patient. If you are a health care provider and have any questions regarding this report, please contact the number below. For patients who have questions please contact the health care assistant that requested your imaging first. Assessment/Plan: Isabel is a 27 year old G4 now P2113, now POD#12 s/p scheduled repeat and bilateral salpingectomy who presents for concern for wound infection. Patient overall well appearing without evidence of systemic illness. Clinical exam and history consistent with seroma, though evidence of some degree of purulent nature to the seroma upon being probed and further expressed, thus concern for developing super infection of seroma. Cellulitis not clinically present on exam. CT pelvis with IV contrast obtained with results as above. As noted, fascia remains intact and no discrete phlegmon could be identified. Given this findings, discussion was had with patient with Dr. Casey Armendariz regarding options for management, including taking the patient to the operating room versus starting her on antibiotics. Care of the patient was ultimately assumed by Dr. Nitza Rodriguez, who evaluated the patient and determined the best plan of care with her (see note from Dr. Rodriguez for further details of their discussion). Patient ultimately discharged home on Clindamycin 450 mg TID. To follow up on Wednesday, 04/28. Patient aware of return precautions including fever, worsening pain, development of surrounding erythema, or any new or concerning symptoms. Risa Anne MD Obstetrics Resident Birthing [place] Phone: [phone] Pager: [phone] Associated attestation - Casey Armendariz MD - 04/25/2023 7:38 AM EDT Patient seen, chart reviewed, discussed with team and agree with resident note. Purulent drainage from tender wound and CT c/w multiloculated supra fascial collection most c/w infected seroma. I recommend going to the OR for evacuation of this collection, debridement and packing (ultimately with wound vac). MD Michelle documented in this encounter Plan of Treatment Not on file documented as of this encounter Procedures Procedure Name Priority Date/Time Associated Diagnosis Comments HEMOGRAM Routine 04/24/2023 8:26 PM EDT DIFFERENTIAL, AUTOMATED Routine 04/24/2023 8:26 PM EDT CBC (WITH DIFF) Routine 04/24/2023 8:26 PM EDT COMPREHENSIVE METABOLIC PANEL Routine 04/24/2023 8:[address] PELVIS SOFT TISSUE (GI [facility] STAFF MEMBER)W CONTRAST Routine 04/24/2023 4:06 PM EDT ANAEROBIC CULTURE Routine 04/24/2023 2:3 1 PM EDT HC BODY FLUID CULTURE Routine 04/24/2023 2:31 PM EDT BODY FLUID CULTURE, AEROBIC Routine 04/24/2023 2:31 PM EDT documented in this encounter Results * (ABNORMAL) Differential, Automated (04/24/2023 8:26 PM EDT) Neutrophil % 73.3 % [facility] Neutrophil Absolute 7.23(H) 1.70 - 6.10 x10(3)/mc L [facility] Lymph % 19.8 % [facility] Lymphocytes Abs 2.0 0.9 - 3.2 x10(3)/mc L [facility] Monocyte % 5.6 % [facility] Monocyte Abs 0.6 0.3 - 0.9 x10(3)/ L [facility] Eos % 0.6 % [facility] Eosinophils Abs 0.1 0.0 - 0.4 x10(3)/ L [facility] Basophil % 0.3 % [facility] Baso Absolute 0.0 0.0 - 0.1 x10(3)/ L [facility] Immature Gran % 0.40 % [facility] Comment: Immature granulocytes(IG's)percentage and absolute count will include metamyelocytes, myelocytes, and promyelocytes. Blood smears from CBCs yielding IG's will be scanned manually for concordance. If this scan disagrees with the automated IG or if promyelocytes are noted, a manual differential will be performed. Immature Gran Absolute 0.04 0.00 - 0.04 x10(3)/ L [facility] Blood 04/24/2023 8:26 PM EDT 04/24/2023 8:34 PM EDT Narrative Resulting Agency Comment Spec In Lab Vicente Zhang MD HEMATOLOGY ORDERABLE S [facility] [place] [address] * (ABNORMAL) Hemogram (04/24/2023 8:26 PM EDT) White Blood Cell 9.9(H) 4.0 - 9.5 x10(3)/ L [facility] Red Blood Cell 3.32(L) 4.00 - 5.21 x10(6)/ L [facility] Hemoglobin 9.4(L) 11.7 - 15.5 g/dL [facility] Hematocrit 28.8(L) 35.7 - 45.8 % [facility] Mean Cell Volume 86.7 82.6 - 94.4 fL [facility] Mean Cell Hemoglobin 28.3 27.1 - 32.0 pg [facility] Mean Cell Hemoglobin Concentration 32.6 31.7 - 35.0 g/dL [facility] Platelet 191 145 - 357 x10(3)/mc L [facility] RDW Standard Deviation 43.5 37.0 - 46.0 fL [facility] RDW coefficient of variation 13.8 11.5 - 14.1 % [facility] Mean Platelet Volume 12.5 7.6 - 12.9 fL [facility] NRBC% auto 0.0 % [facility] NRBC Absolute 0.000 0.000 - 0.000 x10(3)/mc L [facility] Blood 04/24/2023 8:26 PM EDT 04/24/2023 8:34 PM EDT Narrative Resulting Agency Comment Spec In Lab Vicente Zhang MD HEMATOLOGY ORDERABLE S [facility] [place] [address] * (ABNORMAL) Comprehensive metabolic panel (non-fasting) (04/24/2023 8:26 PM EDT) Glucose 82 65 - 199 mg/dL [facility] Comment:Diabetes: >=200 mg/d L plus symptoms Blood Urea Nitrogen 8 8 - 18 mg/dL [facility] Creatinine 0.68(L) 0.70 - 1.20 mg/dL [facility] Sodium 141 135 - 145 mmol/L [facility] Potassium 3.7 3.5 - 5.0 mmol/L [facility] Comment: Please note: ??Patients with WBC >100,000 may have falsely elevated Potassium levels. ??For accurate Potassium quantification in these patients send serum separator tube (gold top) for subsequent determinations. ??Contact the Clinical Chemistry Laboratory if there are any questions. Chloride 108(H) 98 - 107 mmol/L [facility] [facility] Carbon Dioxide 20(L) 22 - 31 mmol/L [facility] Anion Gap 13 5 - 15 mmol/L [facility] Calcium 8.6 8.5 - 10.5 mg/dL [facility] Protein, Total 6.3 6.1 - 8.0 g/dL [facility] Albumin 3.3 3.2 - 5.2 g/dL [facility] Aspartate Aminotransferase 9 0 - 30 unit/L [facility] Alanine Aminotransferase 6 0 - 30 unit/L [facility] Alkaline Phosphatase 81 35 - 105 unit/L [facility] Bilirubin, Total <0.2(L) 0.2 - 1.3 mg/dL [facility] Est Glomerular Filtration Rate 122 >=60 mL/min/1. 73 m?? [facility] Comment: This patient's estimated GFR was calculated using the 2020 CKD-EPI equation. The estimated GFR can vary from the measured GFR by up to 30% in the absence of rapidly changing kidney function. Assessment of the estimated GFR is not appropriate when creatinine concentrations are rapidly changing. For clinical situations in which a more precise estimate of GFR is necessary, consider alternative methods of GFR estimation such as a 24-hour urine creatinine clearance. Assignment of CKD stage 1-5 for patients with an eGFR near the transition point between stages may be based on clinical assessment of muscle mass and symptoms in addition to eGFR. Blood 04/24/2023 8:26 PM EDT 04/24/2023 8:34 PM EDT Narrative Resulting Agency Comment Spec In Lab Casey Armendariz MD CHEMISTRY ORDERABLES [facility] [place] [place] [address] * CT Pelvis Soft Tissue (GI CRUISE STAFF MEMBER) w Contrast (04/24/2023 4:06 PM EDT) Anatomical Region Laterality Modality Pelvis Computed Tomogra phy Impressions 04/24/2023 6:01 PM EDT 1. ??Two small fluid collections in the anterior pelvic wall subcutaneous tissue with surrounding edema or possibly phlegmonous material and inflammatory findings. Evolving abscess is not excluded. Preliminary report signed by: Fide Elizalde at 04/24/2023 5:24 PM I have personally reviewed the image(s) and the resident's interpretation and agree with the findings, Lisha Bolton MD at 04/24/2023 6:01 PM Thank you for letting us participate in the care of this patient. ??If you are a health care provider and have any questions regarding this report, please contact the number below. ??For patients who have questions please contact the health care assistant that requested your imaging first. ? Narrative 04/24/2023 6:01 PM EDT EXAMINATION: CT PELVIS SOFT TISSUE (GI CRUISE STAFF MEMBER)W CONTRAST CLINICAL HISTORY: assess subcutaneous incisional abscess s/p TECHNIQUE: Helical CT of the pelvis following the intravenous administration of contrast. 119 cc Omnipaque 350. Oral contrast was not administered. COMPARISON: None FINDINGS: Urinary Bladder: Normal. Lymph Nodes: No enlarged lymph nodes. Reactive bilateral inguinal nodes. Bowel: Nondilated, no wall thickening. ?? Peritoneum and retroperitoneum: No pneumoperitoneum. Fat stranding and edema anterior to the uterus. Small irregularity at the anterior uterus favored to represent granulation tissue or adhesion (series 6 image 65). Abdominal fascia appears intact. Abdominal wall: Two dominant pockets of fluid anteriorly in the subcutaneous fat at the level of the Pfannenstiel incision, larger of which measures 6.9 x 2.0 cm. Smaller pocket of fluid is located to the right of midline and measures 4.0 x 1.6 cm. Abnormal thickening with additional areas of edema/phlegmon visualized deep to the skin surface. Three small foci of air are also seen within the anterior pelvic wall and are likely related to recent probe instrumentation per ordering provider. Reproductive organs: Uterus is enlarged. No adnexal masses. Trace fluid. Expected findings related to . Osseous structures: No suspicious lesions. Procedure Note Lisha Hewitt MD - 04/24/2023 EXAMINATION: CT PELVIS SOFT TISSUE (GI [employer]UISE STAFF MEMBER)W CONTRAST CLINICAL HISTORY: assess subcutaneous incisional abscess s/p TECHNIQUE: Helical CT of the pelvis following the intravenousadministration of contrast. 119 cc Omnipaque 350. Oral contrast was not administered. COMPARISON: None FINDINGS: Urinary Bladder: Normal. Lymph Nodes: No enlarged lymph nodes. Reactive bilateral inguinal nodes. Bowel: Nondilated, no wall thickening. Peritoneum and retroperitoneum: No pneumoperitoneum. Fat stranding andedema anterior to the uterus. Small irregularity at the anterior uterus favoredto represent granulation tissue or adhesion (series 6 image 65). Abdominalfascia appears intact. Abdominal wall: Two dominant pockets of fluid anteriorly in thesubcutaneous fat at the level of the Pfannenstiel incision, larger of which measures 6.9 x2.0 cm. Smaller pocket of fluid is located to the right of midline andmeasures 4.0 x 1.6 cm. Abnormal thickening with additional areas of edema/phlegmonvisualized deep to the skin surface. Three small foci of air are also seen withinthe anterior pelvic wall and are likely related to recent probeinstrumentation per ordering provider. Reproductive organs: Uterus is enlarged. No adnexal masses. Trace fluid. Expected findings related to . Osseous structures: No suspicious lesions. IMPRESSION 1. Two small fluid collections in the anterior pelvic wall subcutaneoustissue with surrounding edema or possibly phlegmonous material and inflammatory findings. Evolving abscess is not excluded. Preliminary report signed by: Fide Elizalde at 04/24/2023 5:24 PM I have personally reviewed the image(s) and the resident's interpretationand agree with the findings, Lisha Bolton MD at 04/24/2023 6:01PM Thank you for letting us participate in the care of this patient. If youare a health care provider and have any questions regarding this report,please contact the number below. For patients who have questions please contactthe health care assistant that requested your imaging first. Casey Armendariz MD IMG CT ORDERABLES * Anaerobic Culture (04/24/2023 2:31 PM EDT) Anaerobic Culture No anaerobic organisms isolated [facility] Abdominal Fluid 04/24/2023 2 :31 PM EDT 04/24/2023 3:05 PM EDT Comment:Culture from probing of Pfannenstiel incision Narrative Resulting Agency Comment Spec In Lab Risa Anne MD MICROBIOLOGY - GEN ERAL ORDERABLES Performing Organization Address City/[facility]/ZIP Co de Phone Number [facility] [place] [address] * (ABNORMAL) Body Fluid Culture, Aerobic (04/24/2023 2:31 PM EDT) Body Fluid Culture Few mixed Gram Negative and Positive organisms(A) [facility] Gram Stain Cytocentrifuge Gram Stain performed Neutrophils seen Moderate Gram Positive Cocci seen (A) [facility] Organism Gram Positive Cocci(A) [facility] Abdominal Fluid 04/24/2023 2 :31 PM EDT 04/24/2023 3:05 PM EDT Comment:Culture from probing of Pfannenstiel incision Narrative Resulting Agency Comment Spec In Lab Risa Anne MD MICROBIOLOGY - GEN ERAL ORDERABLES Performing Organization Address [facility] Co de Phone Number [facility] [place] [place] [address] documented in this encounter Visit Diagnoses Diagnosis Wound infection after surgery- Primary Other postoperative infection documented in this encounter Admitting Diagnoses Diagnosis Wound infection after surgery Other postoperative infection documented in this encounter Administered Medications Inactive Administered Medications - up to 3 most recent administrations Medication Order MAR Action Action Date Dose Rate Site acetaminophen (Tylenol) tablet 975 mg 975 mg, Oral, EVERY 6 HOURS PRN, Starting on 04/24/23 at 1724, Until 04/25/23 at 0101, Pain, Maximum dose of acetaminophen is 4,000 mg from all sources in 24 hours. Both acetaminophen and ibuprofen, if ordered, should be given even when other ordered pain medications are indicated., Routine Given 04/24/2023 9:14 PM EDT 975 mg cefTRIAXone (Rocephin) 2 g vial attach to sodium chloride 0.9% 50 mL Mini-Bag Plus 2 g, Intravenous, EVERY 24 HOURS, First dose on 04/24/23 at 1930, Until Discontinued, Administer over 30 Minutes, Indication for (Active or Suspected): Skin/Skin Structure clindamycin (Cleocin) 900 mg in dextrose 5% 50 mL infusion 900 mg, Intravenous, EVERY 8 HOURS, First dose on 04/24/23 at 1930, Until Discontinued, Administer over 30 Minutes, Indication for (Active or Suspected): Skin/Skin Structure clindamycin (Cleocin) capsule 300 mg 300 mg, Oral, ONCE, 1 dose, On 04/24/23 at 2130, STAT, Indication for (Active or Suspected): Skin/Skin Structure Given 04/24/2023 9:14 PM EDT 300 mg dextrose 5% and sodium chloride 0.9% infusion 100 mL/hr, Intravenous, CONTINUOUS, Starting on 04/24/23 at 1945, Until 04/25/23 at 0101 docusate sodium (Colace) capsule 100 mg 100 mg, Oral, 2 TIMES DAILY, First dose on 04/24/23 at 2100, Until Discontinued, Routine iohexoL (Omnipaque) (350 mg/mL) solution 0-200 mL 0-200 mL, Intravenous, ONCE PRN, 1 dose, Starting on 04/24/23 at 1606, Until 04/24/23 at 1606, Per Protocol, Warning Vesicant/Irritant Medication , Radiology Contrast, Routine Given 04/24/2023 4:06 PM EDT 119 mLs documented in this encounter Active and Recently Administered Medications Times are shown in EDT. Scheduled Medication Order 04/22/2023 04/23/2023 04/24/2023 cefTRIAXone (Rocephin) 2 g vial attach to sodium chloride 0.9% 50 mL Mini-Bag Plus 2 g, Intravenous, EVERY 24 HOURS, First dose on 04/24/23 at 1930, Until Discontinued, Administer over 30 Minutes, Indication for (Active or Suspected): Skin/Skin Structure 1929 (Due) clindamycin (Cleocin) 900 mg in dextrose 5% 50 mL infusion 900 mg, Intravenous, EVERY 8 HOURS, First dose on 04/24/23 at 1930, Until Discontinued, Administer over 30 Minutes, Indication for (Active or Suspected): Skin/Skin Structure 1929 (Due) clindamycin (Cleocin) capsule 300 mg (COMPLETED) 300 mg, Oral, ONCE, 1 dose, On 04/24/23 at 2130, STAT, Indication for (Active or Suspected): Skin/Skin Structure 2113 (Given - Provid er: Shena Hook RN) docusate sodium (Colace) capsule 100 mg 100 mg, Oral, 2 TIMES DAILY, First dose on 04/24/23 at 2100, Until Discontinued, Routine 2100 (Due) Continuous Medication Order 04/22/2023 04/23/2023 04/24/2023 dextrose 5% and sodium chloride 0.9% infusion 100 mL/hr, Intravenous, CONTINUOUS, Starting on 04/24/23 at 1945, Until 04/25/23 at 0101 1945 (Due) PRN Medication Order 04/22/2023 04/23/2023 04/24/2023 acetaminophen (Tylenol) tablet 975 mg 975 mg, Oral, EVERY 6 HOURS PRN, Starting on 04/24/23 at 1724, Until 04/25/23 at 0101, Pain, Maximum dose of acetaminophen is 4,000 mg from all sources in 24 hours. Both acetaminophen and ibuprofen, if ordered, should be given even when other ordered pain medications are indicated., Routine 2113 (Given - Provid er: Shena Hook RN) iohexoL (Omnipaque) (350 mg/mL) solution 0-200 mL (COMPLETED) 0-200 mL, Intravenous, ONCE PRN, 1 dose, Starting on 04/24/23 at 1606, Until 04/24/23 at 1606, Per Protocol, Warning Vesicant/Irritant Medication , Radiology Contrast, Routine 1606 (Given - Provid er: Charlotte Mccoy) documented in this encounter Care Teams Wheel Truing Machine Tender Relationship Specialty Start Date End Date Analisa Martinez PA [facility] [place] [address] PCP - General 11/30/22 documented as of this encounter
--- OUTSIDE RECORDS SUMMARY | 2024-05-04 18:58 | XMS_ITS | Encounter Summary ---
Author Organization [facility] Address [facility] [place] [address] Care Team Providers Care Lens Generator Name Role Phone Analisa Martinez Primary Care Provider [phone] Encounter Details Date Type Department Care Team (Latest Contact Info) Description 05/21/2023 Travel Social History Tobacco Use Types Packs/Day Years [...] like food, housing, medical care, and heating? Somewhat hard 05/21/2023 Hunger Vital Sign Answer Date Recorded Within the past 12 months, y ou worried that your food would run out before you got the money to buy more. Often true 05/21/20 23 Within the past 12 months, t he food you bought just didn't last and you didn't have money to get more. Often true 05/21/2023 PRAPARE - Transportation Answer Date Re corded In the past 12 months, has l ack of transportation kept you from medical appointments or from getting medications? No 04/28 In the past 12 months, has l ack of transportation kept you from meetings, work, or from getting things needed for daily living? No 05/21/2023 Housing Stability Vital Sign Answer Michael e [...] place to sleep or slept in a group home (including now)? No 05/21/2023 [facility] IP[facility] Inpatient Questions Answer Date Recorded Does [...] on file documented as of this encounter Plan of Treatment Not on file documented as of this encounter Visit Diagnoses Not on filedocumented in this encounter Care Teams Lens Generator Relationship Specialty Start Date End Date Analisa Martinez PA [address] [place] [address] PCP - General 11/30/22 documented as of this encounter
--- OUTSIDE RECORDS SUMMARY | 2024-05-04 18:58 | XMS_ITS | Encounter Summary ---
Author Organization [facility] Address [facility] [place] [address] Care Team Providers Care Audit Specialist Name Role Phone Analisa Martinez Primary Care Provider [phone] Encounter Details Date Type Department Care Team (Latest Contact Info) Description 04/28/2023 Travel Social History Tobacco Use Types Packs/Day Years Used Date Smoking Tobacco: Every Day Cigarettes Smokeless Tobacco: Never Comments:Cut back from 2 pac ks Alcohol Use Standard Drinks/Week Comments Not Currently 0 (1 standard drink = 0.6 oz pur e alcohol) [facility] IP[facility] Inpatient Questions Answer Date Recorded [...] on filedocumented in this encounter Care Teams Audit Specialist Relationship Specialty Start Date End Date Analisa Martinez PA [address] [place] [address] PCP - General 11/30/22 documented as of this encounter
--- OUTSIDE RECORDS SUMMARY | 2024-05-04 18:58 | XMS_ITS | Encounter Summary ---
Author Organization [facility] Address [facility] [place] [address] Care Team Providers Care Cruise Agent Name Role Phone Analisa Martinez Primary Care Provider [phone] Encounter Details Date Type Department Care Team (Latest Contact Info) Description 04/20/2023 Travel Social History Tobacco Use Types Packs/Day [...] on filedocumented in this encounter Care Teams Cruise Agent Relationship Specialty Start Date End Date Analisa Martinez PA [address] [place] [address] PCP - General 11/30/22 documented as of this encounter
--- OUTSIDE RECORDS SUMMARY | 2024-05-04 18:58 | XMS_ITS | Encounter Summary ---
Author Organization [facility] Address [facility] [facility] [place] [address] Care Team Providers Care Class A Truck Driver Name Role Phone Analisa Martinez Primary Care Provider [phone] Encounter Details Date Type Department Care Team (Late st Contact Info) Description 05/27/2023 Orders Only Obstetrics [place] [id number] Nitza Murguia MD [facility] OBSTETRICS [place] [address] Social History Tobacco Use Types Packs/Day Years [...] place to sleep or slept in a long term (including now)? No 05/21/2023 [facility] IPV Inpatient [...] on filedocumented in this encounter Care Teams Class A Truck Driver Relationship Specialty Start Date End Date [place] [address] PCP - General 11/30/22 documented as of this encounter
--- OUTSIDE RECORDS SUMMARY | 2024-05-04 18:58 | XMS_ITS | Encounter Summary ---
Author Organization [facility] [place] [address] Care Team Providers Care Admin Secretary Name Role Phone Analisa Martinez Primary Care Provider [phone] Encounter Details Date Type Department Care Team (Latest Contact Info) Description 04/16/2023 Encounter Social History Tobacco Use Types Packs/Day [...] this encounter Miscellaneous Notes * Note - Analisa Shepard, RN - 04/16/2023 2:00 PM EDT This note was copied from a baby's chart. ASSESSMENT INPATIENT Encounter Date/Time: 04/16/20231399 Baby's name: Baby Jese Milner : 04/12/2024 Time of : 4:21 PM Mode of Delivery: Lower Segment Transverse Gestational Age: Gestational Age: 36w2d Baby age: 4 days Birthweight: 6 lb 5.9 oz (2890 g) Weights since : Patient Vitals for the past 168 hrs: Weight 04/16/23 0200 2.72 kg (5 lb 15.9 oz) 04/15/23 0200 2.77 kg (6 lb 1.7 oz) 04/14/23 0320 2.86 kg (6 lb 4.9 oz) 04/12/23 1714 2.89 kg (6 lb 5.9 oz) 04/12/23 1621 2.89 kg (6 lb 5.9 oz) Overall weight loss: -6% MATERNAL INFO: Isabel Julian [id number] G 4 P 3 Significant History: Previous experience: None--first-time Breast Surgery: No Breast Changes During : Yes Breast Exam : Size: X large Shape: Round Venous Pattern: Within Normal Limits Milk Production: Normal pumped over 500 ml in last 24 hours Full Firm Engorged Nipple Exam : Normal large in diameter Color: [place] Compressible: Yes Trauma: no pain or trauma Nipple Care Management: deep asymmetric latch, Earth Mama nipple butter for pumping OBSERVATION: INFANT ASSESSMENT: Just came off of CPAP Oral Motor Examination/Function: Mouth: Normal Jaw: Normal able to take nipple fully into mouth Lips: Normal Gums: Normal Tongue: Normal resting position not sustaining suck on nipple Palate: Not assessed Frenulum: Not assessed Coordination of Infant Suck: Smooth/rhythmic for only 2-3 sucks Position: Right: cross cradle Left: Rooting: Normal for age Attachment: Appears Adequate but not sucking or swallowing Attempted latch with XS nipple shield Swallow: Not observed Sucking Burst Pattern: Non Nutritive PATIENT EDUCATION AND RECOMMENDATIONS: Benefits of frequent maternal-infant Skin to Skin (STS) contact at early feeding cues every 2 - 3 hours, awaken as needed Discussed that it is likelyto take Annia a couple of weeks to get to full oral feedings. Encouraged parents to work on first before introducing a bottle Optimal positioning: Qsiu-cd-yvpcru positioning Dvti-xu-iijto technique Nutritive vs non-nutritive sucking Breast massage and manual expression techniques Breast massage during , alternated with breast compression during pauses Alternative stimulation techniques/waking techniques/consoling techniques Strategies to manage physiological engorgement On-going Concerns: Inexperienced BF mom Inadequate infant latch today, just got off CPAP Delayed adequate feeding Late at 36 6/7 weeks, just off of CPAP Monitor growth and nutrition closely Planning: --Feeding Plan: Encouraged Mom to do breast visits through the weekend before introducing a bottle.Shown how to use XS nipple shield which supported latch a little more but latch and suck was still not sustained. Parents asked bedside RN to offer bottles if the baby was awake and parents weren't there tonight. 20 minutes were spent with this family, providing assessment, assistance, education, and support. Mother voices understanding of education and recommendations. ,Analisa Shepard RN IBCLC [facility] Services documented in this encounter Plan of Treatment Not on file documented as of this encounter Visit Diagnoses Not on filedocumented in this encounter Care Teams Admin Secretary Relationship Specialty Start Date End Date Analisa Martinez PA [address] [place] [address] PCP - General 11/30/22 documented as of this encounter
--- OUTSIDE RECORDS SUMMARY | 2024-05-04 18:58 | XMS_ITS | Encounter Summary ---
Author Organization [facility] [place] [address] Care Team Providers Care Fishing Manager Name Role Phone Analisa Martinez Primary Care Provider [phone] Encounter Details Date Type Department Care Team (Late st Contact Info) Description 04/16/2023 Orders Only Obstetrics [place] [address] Ashley Valdes MD [facility] OBSTETRICS [place] [address] Social History Tobacco Use Types Packs/Day Years [...] on filedocumented in this encounter Care Teams Fishing Manager Relationship Specialty Start Date End Date Analisa Martinez PA [address] [place] [address] PCP - General 11/30/22 documented as of this encounter
--- OUTSIDE RECORDS SUMMARY | 2024-05-04 18:58 | XMS_ITS | Encounter Summary ---
[place] [address] Care Team Providers Care Automotive Tire Technician Name Role Phone Analisa Martinez Primary Care Provider [phone] Encounter Details Date Type Department Care Team (Late st Contact Info) Description 05/24/2023 Telephone Obstetrics [place] [address] Macarena Priest, RN Social History Tobacco Use Types Packs/Day [...] place to sleep or slept in a assisted (including now)? No 05/21/2023 [facility] IPV Inpatient [...] Telephone Encounter - Macarena Priest RN - 05/24/2023 4:42 PM EDT Isabel Julian 6wPP [facility] Reason for call: thrush Pt reports that her daughter's forestry technical officer diagnosed the baby with thrush - pt states her baby is getting treated with nystatin, she would like treatment as well. Denies pain or cracking at nipples,they are a little red and it hurts when she latches. I stated I would reach out to [facility] telephone service representative, but that clinic is closing soon and I would not be able to reach back out to the pt - she verbalized understanding. I stated she should check for new meds on [facility] and/or call her pharmacy a little bit later to see if anything had been put through, she agrees to plan, no questions at this time. In basket sent to Dr Murguia. documented in this encounter Plan of Treatment Not on file documented as of this encounter Visit Diagnoses Not on filedocumented in this encounter Care Teams Automotive Tire Technician Relationship Specialty Start Date End Date [place]isa [place] [address] PCP - General 11/30/22 documented as of this encounter
--- OUTSIDE RECORDS SUMMARY | 2024-05-04 18:58 | XMS_ITS | Data Portability ---
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 Patients Only) Unsure Information not available 12/08/2023 How Often Does Anyone, Including Family, Physically Hurt You? Never Information not available 12/08/2023 How Often Does Anyone, Including Family, Insult Or Talk Down To You? Never Information no t available 12/08/2023 How Often Does Anyone, Including Family, Threaten You With Harm? Never Information not available 12/08/2023 How Often Does Anyone, Including Family, Scream Or Curse At You? Never Information not available 12/08/2023 Within The Past 12 Months, You Worried That Your Food Would Run Out Before You Got Money To Buy More. Never True Information n ot available 12/08/2023 Within The Past 12 Months, The Food You Bought Just Didn't Last And You Didn't Have Money To Get More. Never True Information not available 12/08/2023 How Hard Is It For You To Pay For The Very Basics Like Food, Housing, Medical Care, And Heating? Would You Say It Is: Not Hard At All Information not available 12/08/2023 In The Past 12 Months, Has Lack Of Reliable Transportation Kept You From Medical Appointments, Meetings, Work Or From Getting Things Needed For Daily Living? No Information not available 12/08/2023 What Is Your Housing Situation Today? I Have Housing. Information not available 12/08/2023 How Often In The Past Year Have You Used Marijuana (including Smoking, Vaping, Dabbing, Or Edibles)? Never Information not available 12/08/2023 How Often In The Past Year Have You Used Prescription Medications That Were Not Prescribed To You? Never Information not available 12/08/2023 How Often In The Past Year Have You Taken Your Own Prescription Medication More Than The Way It Was Prescribed Or For Different Reasons Than Its Intended Purpose? Never Information not available 12/08/2023 How Often In The Past Year Have You Used Other Drugs (for Example, Heroin, Cocaine, Meth, Salvia, Inhalants)? Never Information not available 12/08/2023 Have You Ever Used IV Drugs? No Information not available 12/08/2023 Date Of Most Recent SBINS 12/08/2023 Information not available 12/08/2023 What Was The Date Of Your Most Recent Tobacco Screening? 12/08/2023 [email or web address] Information n ot available 12/08/2023 What Is Your Current Pack Years? 10-19packyea rs Information not available 03/29/2024 How Much Tobacco Do You Smoke? 1 PPD [email or web address] Information not available 12/08/2023 Has Tobacco Cessation Counseling Been Provided? No [email or web address] Information not available 12/08/2023 Do You Have Any Dietary Restrictions? No Information not available 12/08/2023 Do You Or Have You Ever Used Any Other Forms Of Tobacco Or Nicotine? No [email or web address] Information not available 12/08/2023 Sex: Female Functional Status Question Answer Note LastModified by Organization D etails LastModified Time What is your exercise level? None Information not available 12/08/2023 Mental Status None recorded. Family History Relationship Description Onset Age of this Age Resolved Age Notes Maternal Grandmother Family history of Hypertension Paternal Grandmother Family history of Hypertension fibromyalgia, narcolepsy Paternal Grandmother Family history of acute medical disorder fibromyalgia, narcolepsy Paternal Grandmother Family history of seizure disorder fibromyalgia, narcolepsy Father Family history of acute medical disorder mental illness Father Family history of alcoholism mental illness Paternal Grandfather Family history of acute medical disorder mental illness Paternal Grandfather Family history of alcoholism mental illness Medical History No medical history recorded. Gynecological HistoryNo gynecological history recorded. Obstetrics History GPAL:G 0 P 0 0 0 0 Immunizations Vaccine Type Date Status Provider Name and Address Organization Details Recorded Time Tdap 01/04/2017 completed Not Available [facility] 06:07:19 COVID-19, mRNA, LNP-S, PF, 30 mcg/0.3 mL dose 01/08/2021 completed Not Available [facility] 08/06/2023 06:07:19 COVID-19, mRNA, LNP-S, PF, 30 mcg/0.3 mL dose 01/30/2021 completed Not Available [facility] 08/06/2023 06:07:19 Hep B, unspecified formulation 06/22/2017 completed Not Available [facility] 08/06/2023 06:07:20 influenza, unspecified formulation 06/18/2021 completed Not Available [facility] 08/06/2023 06:07:20 influenza, unspecified formulation 08/19/2018 completed Not Available [facility] 08/06/2023 06:07:20 Past Encounters Encounter ID Performer Location Encounter Start Date Encounter Closed Date Diagnosis/Indication Diagnosis SNOMED-CT Code [id number] MELODY DAMON MD [address] [address] 10/04/2023 11:27:40 10/04/2023 12:21:09 History of pulmonary embolus 318575713 Pain of left wrist 28974 [id number] MELODY DAMON MD [address] [address] 12/08/2023 09:38:59 12/08/2023 10:38:05 Vitamin D deficiency 23247944 Fatigue 30100797 Adult heal th examination 658828132 Obesity 544905011 [id number] MELODY DAMON MD [address] [address] 03/29/2024 09:54:16 03/29/2024 10:38:16 Hyperlipidemia 18247367 Obesity 510950459 Vitamin D deficiency 347 40072 Cigarette smoker 0920466 7 Health Concerns Section Related Observation LastModified by Organization Detai ls LastModified Time None Recorded Concern Status LastModified by Organization Details LastModified Time None Recorded Advance Directives Directive None Recorded Payers Encounter Date Sequence Insurance Name Policy Number Policy Sterling Covered Member ID Sterling Member ID Guarantor Name 10/04/2023 1 [facility] (MEDICAID) Isabel Julian [id number] Isabel Prakash 12/08/2023 1 [facility] (MEDICAID) Isabel Camille Julian [id number] Isabel L Eynon 03/29/2024 1 [facility] (MEDICAID) Isabel Camille Julian [id number] Isabel Camille Eysharon Notes Date Note Type Note Provider Name and Address Organization Details Recorded Time 10/04/2023 text/html HPI Notes: Juan fan is a 28-year-old female who is 6 months . she developed pulmonary emboli after section. She was treated with Lovenox and it has been 4 weeks since she stopped the Lovenox. She is here because she would like to get a tattoo and is wondering if it safe for her to go do that. she has had no increased bleeding or bruising. She is status post a tubal ligation and no risk of . patient reports that she has had a lot of problems with her left wrist it she has been told multiple times that she has had tendinitis they put her in a splint for 3 to 4 weeks the condition resolves but after taking the splint off within 4 to 6 months the condition returns. She has had some similar problems with other tendons. MD [address], [place], [address], [facility]. 10/04/2023 13:18:37 12/08/2023 text/html HPI Notes: Juan fan is a 28-year-old young lady who is 8 months who comes in today for general checkup. 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 She is still breast-feeding and having no issues with her breast. She saw her eye doctor about a year ago is wearing glasses but is further working as well as they used to. She does not have a regular dentist though did have to have a tooth pulled during . She is quite concerned because she regained a fair amount of weight that she had lost blood and has not changed her diet any and is still breast-feeding so she would like to make sure that her thyroid is functioning normally she had been on a fairly high dose of vitamin D in the past has not had those levels checked and she has not been taking anything other than what is in her multivitamin. She continues to be a smoker. She did have some problems with the incision but that is now completely healed. She is not sure if she is ever had the Gardasil immunizations. She is going to ask her mother who has all of her shot records she believes. She reports that her baby is 8 months and is starting to sleep a little better through the night. MELODY DAMON MD [address], [place], [address], [facility], [facility]. 12/08/2023 11:58:21 03/29/2024 text/html HPI Notes: Juan fan comes in today to follow-up on her cholesterol. She did not start the statin because she was breast-feeding she is now finished breast-feeding. She has been watching her diet and has lowered her fat intake and would like to know what her cholesterol is right now and that she still needs the statin. She is also very concerned about losing weight. She she states that she is really been working on eating a better diet. She did see a dietitian she is not quite sure what to do at this stage. She also states that she cannot seem to remember to take the vitamin D because it is to every 2 weeks. So she is not sure that that has been all that helpful. Patient reports she is working with a dentist to get her teeth fixed if she is going to quit smoking. MELODY DAMON MD [address], [place], [address], [facility]. 03/29/2024 10:39:38 OBGyn Episode No OBEpisode recorded.
--- OUTSIDE RECORDS SUMMARY | 2024-05-04 18:58 | XMS_ITS | Encounter Summary ---
Author Organization [facility] Address [facility] Masood [facility] [place] [address] Care Team Providers Care Manufacturing Technologist Name Role Phone Analisa Martinez Primary Care Provider [phone] Encounter Details Date Type Department Care Team (Late st Contact Info) Description 05/24/2023 Orders Only Obstetrics [place] [address] Nitza Murguia MD [facility] [place] [address] Jenn infection Social History Tobacco Use Types Packs/Day Years [...] place to sleep or slept in a residential (including now)? No 05/21/2023 DH IPV Inpatient [...] as of this encounter Visit Diagnoses Diagnosis Jenn infection Candidiasis of unspecified site documented in this encounter Care Teams Manufacturing Technologist Relationship Specialty Start Date End Date [place] [address] PCP - General 11/30/22 documented as of this encounter
--- OUTSIDE RECORDS SUMMARY | 2024-05-04 18:58 | XMS_ITS | Encounter Summary ---
[place] [address] Care Team Providers Care Debate Director Name Role Phone Analisa Martinez Primary Care Provider [phone] Encounter Details Date Type Department Care Team (Late st Contact Info) Description 05/26/2023 Telephone Obstetrics [place] [address] Loida Hall, RN Social History Tobacco Use Types Packs/Day [...] encounter Miscellaneous Notes * Telephone Encounter - Loida Hall RN - 05/26/2023 2:58 PM EDT Returned call to Isabel Julian, who was just prescribe miconazole cream for nipple thrush. Isabel isnot comfortable with using this cream as she does not feel it is safe for the baby. Reviewed with Isabel that Miconazole cream is the treatment of choice for treating nipple thrush, is considered safe by [facility] and is the recommended by [facility] for treatment of nipple thrush. Understands that cream needs to be wiped off before feeding and states that infant is cluster-feeding. Would like to have the pills again that she was prescribed before leaving the [facility] [place]. States she was treated with fluconazole 200mg daily for two weeks, which resolved the symptoms, andwas symptom free for several weeks. I let Isabel know that I would review her request with Dr. Murguia and get back to her, she states she is comfortable with this plan. documented in this encounter Plan of Treatment Not on file documented as of this encounter Visit Diagnoses Not on filedocumented in this encounter Care Teams Debate Director Relationship Specialty Start Date End Date Analisa Martinez PA [address] [place] [address] PCP - General 11/30/22 documented as of this encounter
--- OUTSIDE RECORDS SUMMARY | 2024-05-04 18:58 | XMS_ITS | Encounter Summary ---
[facility] Organization [facility] Address [facility] [place] [address] Care Team Providers Care Deck And Hull Assembler Name Role Phone Analisa Martinez Primary Care Provider [phone] Encounter Details Date Type Department Care Team (Latest Contact Info) Description 04/22/2023 Encounter Social History Tobacco Use Types Packs/Day [...] Miscellaneous Notes * Note - Analisa Shepard, RODY - 04/22/2023 2:00 PM EDT This note was copied from a baby's chart. Met with Isabel in the pumping room. She met with a counselor at [facility] who encouraged her to pump every hour and a half or 2 and that she should pump until her breasts are softened, Isabel doesn't feel like they are softening that well with pumping. Isabel was pumping with 27mm flanges, and holding them firmly into her breasts so that the edges are significantly compressing her breast tissue. Encouraged her to hold them more gently so that thereis minimal indentation as this can impede flow and breast milk emptying. Suggested that she lower the suction and try going back to the 24mm flanges that she started with. If painful lowering the suction should help. She is using [employer] for lubrication. Discussed that it is important that the nipple relaxes back to resting state between pump cycles. Reinforced continuing to pump every 2-3 hours with one 4 hour stretch over night. She is getting 5-8 ounces when she pumps and has a fair amount of milk in the freezer. She is putting Annia to breast when she visits. She did not pass her first ad carmella trial. Discussedthat this is not that unusual with late babies. She does not feel that she needs support for the . Football hold is working really well. Continue to follow mom and offer support. She will have follow up support with Stephany at [facility] where she plans cristinaee MD Analisa Robertson RN, IBCLC [facility] Services documented in this encounter Plan of Treatment Not on file documented as of this encounter Visit Diagnoses Not on filedocumented in this encounter Care Teams Deck And Hull Assembler Relationship Specialty Start Date End Date [place] [address] PCP - General 11/30/22 documented as of this encounter
--- OUTSIDE RECORDS SUMMARY | 2024-05-04 18:58 | XMS_ITS | Encounter Summary ---
Author Organization [facility] Address [facility] [place] [address] Care Team Providers Care Senior Principal Software Engineer Name Role Phone Analisa Martinez Primary Care Provider [phone] Reason for Visit * Reason Comments Follow-up incision c heck, s/p 04/12/23 with tubal Encounter Details Date Type Department Care Team (Late st Contact Info) Description 04/28/2023 2:00 PM EDT Office Visit Obstetrics [place] [address] Sophie Scanlon MD [facility] OBSTETRICS [place] [address] Separation of wound with drainage, (Primary Dx); Surgical wound infection; H/O section Social History Tobacco Use Types Packs/Day Years Used Date Smoking Tobacco: Every Day Cigarettes Smokeless Tobacco: Never Comments:Cut back from 2 pac ks Alcohol Use Standard Drinks/Week Comments Not Currently 0 (1 standard drink = 0.6 oz pur e alcohol) [facility] Inpatient Questions Answer Date Recorded Does Anyone [...] Sign Reading Time Taken Comments Blood Pressure 124/64 04/28/2023 2:09 PM EDT Pulse 75 04/28/2023 2:09 PM EDT Temperature 36.6 ??C (97.9 ??F) 04/28/2023 2:09 PM ED T Respiratory Rate - - Oxygen Saturation 100% 04/28/2023 2:09 PM EDT Inhaled Oxygen Concentration - - Weight 93.8 kg (206 lb 12.8 oz) 04/28/2023 2:09 PM EDT Height - - Body Mass Index 36.63 04/24/2023 2:24 PM EDT documented in this encounter Progress Notes * Sophie Scanlon MD - 04/28/2023 2:00 PM EDT OB Wound Check Visit Reason for Visit: Isabel is a 27 y.o. POD#16 s/p repeat c/s and bilateral salpingectomy whopresents for wound check. HPI: She was seen four days ago on the birthing [facility] after noting draining from her incision. She had a CT scan done which showed two subcutaneous fluid collections, 6 and 4cm, and she was initiallyscheduled for debridement in the OR. However, given her lack of fever, systemic symptoms or elevated WBC the decision was made to discharge her home with PO antibiotics. She reports that she is doingmuch better and still strongly desires to avoid opening the incision further or going to the OR. Denies fevers, chills, nausea, vomiting. Incision is draining a small amount of fluid, not-tender or red/warm. She is taking the clindamycin as prescribed. Patient Active Problem List Diagnosis Date Noted Wound infection after surgery 04/24/2023 H/O section 04/12/2023 labor 03/18/2023 History of rupture of uterus 03/14/2023 Previous delivery affecting 02/24/2023 Past Medical History: Diagnosis Date Asthma Past Surgical History: Procedure Laterality Date SECTION SECTION PRO DELIVERY ONLY Bilateral 04/12/2023 @ DELIVERY (WRVU 16.13) performed by Mary Headley MD at [facility] PRO LIGATE FALLOPIAN TUBE, N/A 04/12/2023 @FALLOPIAN TUBE(S), TRANSECTION OR LIGATION, ABD APPROACH, POST- (WRVU 5.28) performed by Mary Headley MD at [facility] Family History Problem Relation Age of Onset Rheumatoid Arthritis Paternal Grandmother Social History Occupational History Not on file Tobacco Use Smoking status: Every Day Packs/day: 0.50 Types: Cigarettes Smokeless tobacco: Never Tobacco comments: Cut back from 2 packs Vaping Use Vaping Use: Never used Substance and Sexual Activity Alcohol use: Not Currently Drug use: Never Sexual activity: Not on file OB History 4 Para 3 Term 2 1 AB 1 Living 3 SAB 1 IAB Ectopic Multiple 0 Live Births 3 # Outc Date GA Lbr Ronaldo/2nd Wgt Sex Del Anes PTL Lv 1 SAB 2011 12w0d SAB 2 Term 2014 39w0d 3.09 kg (6 lb 13 oz) M C-S scar Comments: SROM, arrest 3cm 3 Term 2016 39w0d 2.523 kg (5 lb 9 oz) M C-S scar Complications: IUGR (intrauterine growth restriction) affecting care of mother 4 03/2023 36w2d 2.89 kg (6 lb 5.9 oz) F LWR SEG MORENO COMBINED SPI No Living Current Outpatient Medications Medication Sig Dispense Refill clindamycin (Cleocin) 150 mg capsule Take 3 capsules by mouth 3 times daily for 30 doses. 90 capsule 0 fluconazole (Diflucan) 200 mg tablet Take 1 tablet by mouth daily. 14 tablet 0 acetaminophen (Tylenol) 325 mg tablet Take 3 tablets by mouth every 6 hours. 60 tablet 0 ibuprofen (Advil) 800 mg tablet Take 1 tablet by mouth every 6 hours. 60 tablet 0 ferrous gluconate (Fergon) 324 mg (37.5 mg iron) Tablet Take 324 mg by mouth daily. vitamin 27 & [id number] 60 mg iron-1 mg Tablet Take 1 tablet by mouth daily. No current facility-administered medications for this visit. Allergies Allergen Reactions Environmental [Latex, Natural Rubber] Rash Penicillins Varicella Vaccines Hives Physical Exam Last Set of Vitals: BP 124/64 Pulse 75 Temp 36.6 ??C (97.9 ??F) Wt 93.8 kg (206 lb 12.8 oz) LMP (LMP Unknown) SpO2 100% BMI 36.63 kg/m?? Weight: 93.8 kg (206 lb 12.8 oz) Body mass index is 36.63 kg/m??. Physical Exam Gen: Well-appearing female in NAD Abd: Soft, non-tender, no masses. Incision: Two small areas of superficial skin seperation, unable to open or probed deeper. Small amount serous drainage from the left area. In the center of the incision, approximately 2cm superficial blister. 4cm of induration over left side of incision. No erythema, warmth or pus. Assessment/Plan: Isabel Julian is a 27 y.o. POD#16 s/p section who presents for wound check follow-up of cellulitis and wound seroma. Her exam is improved from over the weekend and she reports feeling much better. Recommend continuing the antibiotics and continuing to monitor closely. Advised to call if increased skin seperation, drainage of pus, redness, fevers or any other concer ns. Will follow-up with wound check in 1 week. Sophie Scanlon MD documented in this encounter Plan of Treatment Not on file documented as of this encounter Visit Diagnoses Diagnosis Separation of wound with drainage, - Primary Disruption of wound, Surgical wound infection Other postoperative infection H/O section Other postprocedural status documented in this encounter Care Teams Senior Principal Software Engineer Relationship Specialty Start Date End Date Analisa Martinez PA [address] [place] [address] PCP - General 11/30/22 documented as of this encounter
--- OUTSIDE RECORDS SUMMARY | 2024-05-04 18:58 | XMS_ITS | Encounter Summary ---
Author Organization [facility] [place] [address] Care Team Providers Care Nuclear Equipment Sales Engineer Name Role Phone Analisa Martinez Primary Care Provider [phone] Encounter Details Date Type Department Care Team (Late st Contact Info) Description 05/20/2023 Telephone Obstetrics [place] [address] Jody Arora Social History Tobacco Use Types Packs/Day Years [...] on filedocumented in this encounter Care Teams Nuclear Equipment Sales Engineer Relationship Specialty Start Date End Date Analisa [place] [address] PCP - General 11/30/22 documented as of this encounter
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
--- OUTSIDE RECORDS SUMMARY | 2024-05-04 18:58 | XMS_ITS | Clinical Summary ---
Author Organization [facility] Address [facility] [place] [address] Care Team Providers Care Implant Polisher Name Role Phone Analisa Martinez Primary Care Provider [phone] Allergies Active Allergy Reactions Criticality Noted Date Comments Latex, Natural Rubber Rash 11/06/2022 Penicillins 11/06/2022 Varicella Vaccines Hives 11/26/2022 Medications Medication Sig Dispensed Refills Start Date End Date Status miconazole (Micotin) 2 % CreamIndications:Cand junie infection Apply topically 2 times daily. 14 g 05/24/2023 Active Active Problems Problem Noted Date Diagnosed Date Pulmonary embolus 05/31/2023 Overview (05/31/2023): Please see 05/31/2023 Financial Investment Manager Telephone Note: Pt states she was told by [facility] to call and notify [facility] that she had some back pain and that she went to [facility] and is now being treated for a PE following CT. Said she was told she has clots in the bottom of her left lung. She is on Lovenox 130 mg daily x 3 mo. She weights 190lbs. She has a PCP and Cell Plasterer whom she will see tomorrow. Resolved Problems Problem Noted Date Diagnosed Date Resolved Date Wound infection after surgery 04/24/2023 05/24/2023 H/O section 04/12/2023 023 Overview (04/13/2023): Patient Preferences at Checklist Patient name/MRN: Isabel Julian Delivery date: 04/12/2023 Indication for : planned repeat for thin XI (measured to be 1.3-1.5mm on last US) *Please hand out patient brochure when discussing preferences Options: Choice: Add any notes/preferences (Pre delivery preferences) Completed: (X) if yes Please add additional info if not completed (Post delivery adherence data) PATIENT PREFERENCES: Drape: Would you like a clear drape or traditional (dark blue) drape? A clear drape allows you to more easily see baby after they are delivered Plan for clear drape, however unsure if wants to see delivery process X Music: Would you like to listen to music during your delivery? You could make your own playlist or choose a music style (we will have a speaker available) no Support person: Would you like your support person to join you while the anesthesia is placed or would you like them to join after everything is set up for the delivery? yes X Delayed cord clamping: This is standard for all deliveries, if baby's status is reassuring we will do delayed cord clamping for 60 seconds or more Standard 60 seconds if applicable. X Early skin to skin: Would you like your baby to come directly to your chest after delayed cord clamping if possible? yes Baby required NiPPV - transferred to ICN support: If you are planning on , would you like some support to help initiate this while the surgery is being finished? yes X INTERNAL USE: OR GOALS Not applicable Pre-operative huddle/Patient checklist reviewed by team Not applicable X Environment: Only necessary people in OR, decrease noise, optimize soft lighting Not applicable Minimize exteriorization of the uterus (provider discretion) Not applicable labor 03/18/2023 05/24/2023 History of rupture of uterus 03/14/2023 05/24/2023 Previous delivery a ffecting 02/24/2023 05/24/2023 Overview (03/31/2023): Prior c/section x 2. Had uterine window at last c/section. Has a somewhat thin lower uterin segment (as of 02/19). Plan repeat c/section at 36+ weeks. Needs a course of beta methasone prior to c/section. Family History Medical History Relation Comments Rheumatoid Arthritis Paternal Grandmother Relation Status Comments Paternal Grandmother Social History Tobacco Use Types Packs/Day Years Used Date Smoking Tobacco: Every Day Cigarettes Smokeless Tobacco: Never Tobacco Cessation:Ready to Q uit: Not Asked; Counseling Given: Not Answered Comments:Cut back from 2 packs Alcohol Use Standard Drinks/Week Comments Not Currently [...] place to sleep or slept in a custodial (including now)? No 05/21/2023 DH IPV Inpatient [...] on file Sexual Orientation Not on file Last Filed Vital Signs Vital Sign Reading Time Taken Comments Blood Pressure 108/71 05/05/2023 10:08 AM EDT Pulse 115 05/05/2023 10:08 AM EDT Temperature 36.8 ??C (98.2 ??F) 05/05/2023 10:08 AM E DT Respiratory Rate 18 04/24/2023 7:45 PM EDT Oxygen Saturation 99% 05/05/2023 10:08 AM EDT Inhaled Oxygen Concentration - - Weight 88.1 kg (194 lb 3.2 oz) 05/05/2023 10:08 AM EDT Height 160 cm (5' 3) 05/05/2023 10:08 AM EDT Body Mass Index 34.4 05/05/2023 10:08 AM EDT Plan of Treatment Health Maintenance Due Date Last Done Comments Pneumococcal Vaccine: At-Risk 5-64yrs (1 of 2 - PCV) 1 10/22/1999 HIV screen 2012 Hepatitis C Screening 2012 Lipid Screening 2012 Hepatitis B vaccine (0-59 yrs) (1) 2013 Tdap adult 2013 Tetanus vaccine 2013 PAP Smear 2015 Covid-19 Vaccine ( season) 2023 Influenza (Flu) vaccine (1 o f 1 - Influenza standard series) 05/28/2024 Advance Directives * Attempt Cardiopulmonary Resuscitation - Inpatient (Latest Code Status on File) Date Activated Date Inactivated Comments 04/24/2023 5:24 PM 04/25/2023 1:01 AM Question Answer Comments Code Status decision made by: Patient * Attempt Cardiopulmonary Resuscitation - Inpatient Date Activated Date Inactivated Comments 04/12/2023 10:39 AM 04/15/2023 6:16 PM Question Answer Comments Code Status decision made by: Patient * Attempt Cardiopulmonary Resuscitation - Inpatient Date Activated Date Inactivated Comments 03/18/2023 2:59 AM 03/18/2023 1:02 PM Question Answer Comments Code Status decision made by: Patient Care Teams Implant Polisher Relationship Specialty Start Date End Date Analisa Martinez PA [address] [place] [address] PCP - General 11/30/22
--- OUTSIDE RECORDS SUMMARY | 2024-05-04 18:58 | XMS_ITS | Encounter Summary ---
Author Organization [facility] Address [facility] Mas[facility] [place] [address] Care Team Providers Care Antique Clocks Repairer Name Role Phone Analisa Martinez Primary Care Provider [phone] Encounter Details Date Type Department Care Team (Latest Contact Info) Description 05/24/2023 1:45 PM EDT Visit Obstetrics [place] [id number] Nitza Murguia MD [facility] OBSTETRICS [place] [address] care and examination; Separation of wound with drainage, Social History Tobacco Use Types Packs/Day Years [...] on file documented as of this encounter Progress Notes * Nitza Murguia MD - 05/24/2023 1:45 PM EDT The patient was located in during the visit. The patient voiced an understanding of the reason and intent of the video visit. The patient provided verbal consent to bill insurance for the visit. I spent 30 minutes on this visit including time with the patient and pre-/post-visit planning for the management of . Weeks 6 weeks Mode of delivery 04/12/2023 -repeat low transverse section complicated by significant intraabdominal adhesions, and uterine atony for which she received TXA x2, methergine, and misoprostol. Viable female . APGARS of 5 and 6. Weight of 2890g. Cord gases were obtained. QBL 880 mL complicated by Hx CS x2 with thin lower uterine segment doted at time of second .Plan 04/12 with BMZ 04/07 and 04/08. Lower uterine segment 1.2mm-1.5mm at the thinnest 02/19/23. Notch at prior CS scar site 3mm 12/25/22. Placenta posterior. Desires sterilization at time of repeat TUD: began at 2 PPD and now down to 1/2 PPD. Declines nicotine patches while inpatient due to reaction to adhesive. Delivery complications None complications She was diagnosed with a wound seroma on POD#12 CT scan done which showed two subcutaneous fluid collections, 6 and 4cm, and she was initially scheduled for debridement in the OR. However, given her lack of fever, systemic symptoms or elevated WBC the decision was made to discharge her home with oral antibiotics. Was seen on POD#16 for follow-up at which time she was noted to have two superficial skin seperations with a small amount of serous drainage. Post- operative hemoglobin was 10.4 General well being Good. The wound is completely healed. Mood Good despite significant social stressors Resumed intercourse no Resumed menses no Symptoms of incontinence no Breast or bottle feeding bottle Current contraception salpingectomy Emergency contraception discussed no Prior Pap smears Due 2023 Need for OGTT Y/N no Discuss anticipated health risks Encouraged continued weight loss. She is very pleased to be down to 185lb. Current Outpatient Medications on File Prior to Visit Medication Sig Dispense Refill acetaminophen (Tylenol) 325 mg tablet Take 3 tablets by mouth every 6 hours. 60 tablet 0 ibuprofen (Advil) 800 mg tablet Take 1 tablet by mouth every 6 hours. 60 tablet 0 ferrous gluconate (Fergon) 324 mg (37.5 mg iron) Tablet Take 324 mg by mouth daily. vitamin 27 & [id number] 60 mg iron-1 mg Tablet Take 1 tablet by mouth daily. No current facility-administered medications on file prior to visit. Allergies Allergen Reactions Environmental [Latex, Natural Rubber] Rash Penicillins Varicella Vaccines Hives Objective: LMP (LMP Unknown) Examination General- Well appearing woman in no distress Assessment: Normal recovery from and delivery. Obesity with successful early weight loss Plan: Resume routine health maintenance care. Pap smear not done today. Contraception salpingectomy Recommended to resume well woman care with PCP Nitza Murguia MD PCP BRIDGETT Turner documented in this encounter Plan of Treatment Not on file documented as of this encounter Visit Diagnoses Diagnosis care and examination Routine follow-up Separation of wound with drainage, Disruption of wound, documented in this encounter Care Teams Antique Clocks Repairer Relationship Specialty Start Date End Date Analisa Martinez PA [address] [place] [address] PCP - General 11/30/22 documented as of this encounter
--- OUTSIDE RECORDS SUMMARY | 2024-05-04 18:58 | XMS_ITS | Encounter Summary ---
[place] [address] Care Team Providers Care Dielectric Testing Machine Operator Name Role Phone Analisa Martinez Primary Care Provider [phone] Encounter Details Date Type Department Care Team (Latest Contact Info) Description 05/05/2023 10:30 AM EDT Clinical Support Obstetrics [place] [address] At risk for ineffective Social History Tobacco Use Types Packs/Day Years [...] this encounter Miscellaneous Notes * Note - Hyacinth Hays RN - 05/05/2023 10:30 AM EDT ASSESSMENT OUTPATIENT Discussed and with Isabel on 5L after her OB provider appointment. Isabel had questions about using two Haakas. One on each breast to pump. Her Symphony breast pump that she is renting changes suction strength and is painful. Recommended she return the Symphony pump to [facility]. Recommended that she contact her local [facility] office with assistance to get a personal pump through [place] Medicaid. [facility] Office with Support [phone] Currently pumping with a hand pump and hand expression. Pumping around 4-5 ounces each pumping session, was pumping 8 ounces at each pumping session. Annia is getting frustrated at the breast due to flow of milk after spending 2 weeks in the ICN. Suggested a [employer] systems. Offered to schedule an outpatient appointment. Did not want to commit at this time to an appointment. Verbalized that she will call Services to schedule an appointment if she is not able to connect with help at the [facility] office in [facility]. [phone] Services at [facility] documented in this encounter Plan of Treatment Not on file documented as of this encounter Visit Diagnoses Diagnosis At risk for ineffective documented in this encounter Care Teams Dielectric Testing Machine Operator Relationship Specialty Start Date End Date Analisa Martinez PA [address] [place] [address] PCP - General 11/30/22 documented as of this encounter
--- OUTSIDE RECORDS SUMMARY | 2024-05-04 18:58 | XMS_ITS | Encounter Summary ---
Author Organization [facility] Address [facility] [place] [address] Care Team Providers Care Machine Joint Cutter Name Role Phone Analisa Martinez Primary Care Provider Encounter Details Date Type Department Care Team (Latest Contact Info) Description 05/05/2023 Travel Social History Tobacco Use Types Packs/Day [...] on filedocumented in this encounter Care Teams Machine Joint Cutter Relationship Specialty Start Date End Date Analisa Martinez PA [address] [place] [id number] PCP - General 11/30/22 documented as of this encounter
--- OUTSIDE RECORDS SUMMARY | 2024-05-04 18:58 | XMS_ITS | Encounter Summary ---
Author Organization [facility] Address [facility] [place] [address] Care Team Providers Care Dental Manager Name Role Phone Analisa Martinez Primary Care Provider [phone] Encounter Details Date Type Department Care Team (Late st Contact Info) Description 05/26/2023 Telephone Obstetrics [place] [phone] Vilma Collins MD [facility] OBSTETRICS & [place] [address] Social History Tobacco Use Types Packs/Day Years [...] place to sleep or slept in a nursing home (including now)? No 05/21/2023 DH IPV [...] encounter Miscellaneous Notes * Telephone Encounter - Vilma Collins MD - 05/26/2023 7:22 PM EDT NARENDRA Julian is 27 y.o. more than 6 wk from who called to request diflucan PO for nipple thrush because is cluster feeding and topical miconazole is less preferable. Prx diflucan sent to patient preferred pharmacy. [facility] Mariscal. Vilma Collins MD, PGY3 Obstetrics and Gynecology 05/26/2023 documented in this encounter Plan of Treatment Not on file documented as of this encounter Visit Diagnoses Diagnosis Thrush Candidiasis of mouth documented in this encounter Care Teams Dental Manager Relationship Specialty Start Date End Date Analisa Martinez PA [address] [place] [address] PCP - General 11/30/22 documented as of this encounter
--- OUTSIDE RECORDS SUMMARY | 2024-05-04 18:58 | XMS_ITS | Encounter Summary ---
[place] [address] Care Team Providers Care Linoleum Layer Apprentice Name Role Phone Analisa Martinez Primary Care Provider [phone] Encounter Details Date Type Department Care Team (Late st Contact Info) Description 04/30/2023 Telephone Obstetrics [place] [address] Macarena Priest RN Social History [...] Telephone Encounter - Macarena Priest RN - 04/30/2023 11:03 AM EDT Isabel Julian 2w PP CNM MFM Reason for call: 2w check in Overall: Pt reports feeling a lot better, states incision was leaking and she was being observed. She states the subcutaneous fluid collection that was seen on Wed is now gone. Is taking antibiotics, started Sat night, will be a week tomorrow. Denies fever/chills, I feel phenomenal. States incision looks good, no redness, warmth, or swelling. Says she is pushing fluids throughout the day. Feels like she has great support at home from spouse, he's been fabulous. Feeding: Baby is now home from NICU, she is doing BF and pumping. She's still struggling with latching, but I'm pumping - if she doesn't latch, or we get stressed, then I warm up a bottle and give her the bottle of breast milk. Denies pain, redness or warmth to breast or nipples; is using lanolinon nipples, haven't had pain in my nipples since using the lanolin. Incision: See above Pain: denies, not using anything at this time Bleeding: Using a pad, changes 3x/day, not saturated. Passed a couple of pea- sized clots, nothing bigger. Void/BM: Reports having diarrhea secondary to the antibiotics she is on, I mentioned it to the doctor on Wed and she said the diarrhea was expected. I reviewed pushing fluids and sticking to a BRAT/bland diet, she agrees to plan. Swelling: Still have a little in my legs and vulva, but has gone down quite a bit from where it was. 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 Sleep: Trying to sleep when baby sleeps, hard to do during the day as I have never been able to sleep when the sun is up. States she is getting about 4-6 hours/noc, is helping with nighttime feeds. PHQ2: 0/2; reports this whole experience has been hell, but I have been staying as positive as I can. Pt states she has a counselor, saw her yesterday, will talk with her again on 05/11. I reviewed resources available here at [facility] if she is ever feeling like she cannot manage things, pt verbalizedunderstanding. No questions at this time. documented in this encounter Plan of Treatment Not on file documented as of this encounter Visit Diagnoses Not on filedocumented in this encounter Care Teams Linoleum Layer Apprentice Relationship Specialty Start Date End Date Analisa Martinez PA [address] [place] [address] PCP - General 11/30/22 documented as of this encounter
--- OUTSIDE RECORDS SUMMARY | 2024-05-04 18:58 | XMS_ITS | Encounter Summary ---
Author Organization [facility] Address [facility] [address] Care Team Providers Care Mechanical Process Engineer Name Role Phone Analisa Martinez Primary Care Provider [phone] Reason for Visit * Reason Comments Follow-up Encounter Details Date Type Department Care Team (Late st Contact Info) Description 05/05/2023 10:00 AM EDT Office Visit Obstetrics [place] [address] Sophie Scanlon MD [facility] OBSTETRICS [place] [address] Separation of wound with drainage, (Primary Dx); Surgical wound infection Social History Tobacco Use Types Packs/Day Years Used Date Smoking Tobacco: Every Day Cigarettes Smokeless Tobacco: Never Comments:Cut back from 2 pac ks Alcohol Use Standard Drinks/Week Comments Not Currently 0 (1 standard drink = 0.6 oz pur e alcohol) [facility] Inpatient Questions Answer Date Recorded Does Anyone [...] 05/05/2023 10:08 AM E DT Respiratory Rate - - Oxygen Saturation 99% 05/05/2023 10:08 AM EDT Inhaled Oxygen Concentration - - Weight 88.1 kg (194 lb 3.2 oz) 05/05/2023 10:08 AM EDT Height 160 cm (5' 3) 05/05/2023 10:08 AM EDT Body Mass Index 34.4 05/05/2023 10:08 AM EDT documented in this encounter Progress Notes * Sophie Scanlon MD - 05/05/2023 10:00 AM EDT OB Wound Check Visit Reason for Visit: Isabel is a 27 y.o. POD#23 s/p repeat c/s and bilateral salpingectomy whopresents for wound check. HPI: She was diagnosed with a wound seroma on POD#12 and was seen on POD#16 for follow-up at which time she was noted to have two superficial skin seperations with a small amount of serous drainage. She has been taking clindamycin which was prescribed on POD#12 and has 1-2 more pills left. She reports that she feels much better! Drainage is much less and the fluid collection is gone. She is no longer sore and can wear regular pants. Is walking around the house more/lots of stairs. Baby was discharged from the NICU 1 week ago. She is . Patient Active Problem List Diagnosis Date Noted Wound infection after surgery 04/24/2023 H/O section 04/12/2023 labor 03/18/2023 History of rupture of uterus 03/14/2023 Previous delivery affecting 02/24/2023 Past Medical History: Diagnosis Date Asthma Past Surgical History: Procedure Laterality Date SECTION SECTION PRO DELIVERY ONLY Bilateral 04/12/2023 @ DELIVERY (WRVU 16.13) performed by Mary Headley MD at [facility] PRO LIGATE FALLOPIAN TUBE, N/A 04/12/2023 @FALLOPIAN TUBE(S), TRANSECTION OR LIGATION, ABD APPROACH, POST- (WRVU 5.28) performed by Mary Headley MD at [facility] Family History Problem Relation Age of Onset [...] Current Outpatient Medications Medication Sig Dispense Refill acetaminophen (Tylenol) 325 mg tablet Take 3 tablets by mouth every 6 hours. 60 tablet 0 ibuprofen (Advil) 800 mg tablet Take 1 tablet by mouth every 6 hours. 60 tablet 0 vitamin 27 & acpiozz-faft-OG 60 mg iron-1 mg Tablet Take 1 tablet by mouth daily. ferrous gluconate (Fergon) 324 mg (37.5 mg iron) Tablet Take 324 mg by mouth daily. No current facility-administered medications for this visit. Allergies Allergen Reactions Environmental [Latex, Natural Rubber] Rash Penicillins Varicella Vaccines Hives Physical Exam Last Set of Vitals: BP 108/71 Pulse (!) 115 Temp 36.8 ??C (98.2 ??F) Ht 160 cm (5' 3) Wt 88.1 kg (194 lb 3.2 oz) LMP (LMP Unknown) SpO2 99% Yes BMI 34.40 kg/m?? Weight: 88.1 kg (194 lb 3.2 oz) Body mass index is 34.4 kg/m??. Physical Exam Gen: Well-appearing female in NAD Abd: Soft, non-tender, non-distended, no masses. Incision: Two small superficial openings in the center of the incision now smaller and 2-3mm, blister resolved and now just skin slightly pink around open areas that are healing. Scant serous drainage on her pad. Very mild induration above the incision on the right, much improved from 1 week ago. Assessment/Plan: Isabel Julian is a 27 y.o. POD#23 s/p section who presents for wound check follow-up of cellulitis and wound seroma. Her wound is healing well with no evidence of infection and improving exam. Advised her to finish the course of antibiotics and continue to keep the incision clean/dry and to monitor closely. Advised to call if pus, increased drainage, redness, incre ased separation or any other concerns. Otherwise will follow-up for her scheduled 6 week PP visit. Sophie Scanlon MD documented in this encounter Plan of Treatment Not on file documented as of this encounter Visit Diagnoses Diagnosis Separation of wound with drainage, - Primary Disruption of wound, Surgical wound infection Other postoperative infection documented in this encounter Care Teams Mechanical Process Engineer Relationship Specialty Start Date End Date Analisa Martinez PA [address] [place] [address] PCP - General 11/30/22 documented as of this encounter
--- OUTSIDE RECORDS SUMMARY | 2024-05-04 18:58 | XMS_ITS | Encounter Summary ---
Author Organization [facility] [place] [address] Care Team Providers Care Smooth Plater Name Role Phone Analisa Martinez Primary Care Provider [phone] Encounter Details Date Type Department Care Team (Late st Contact Info) Description 04/23/2023 Orders Only Obstetrics [place] [address] Fide Haas MD [facility] [place] [address] Social History Tobacco Use Types Packs/Day Years [...] on filedocumented in this encounter Care Teams Smooth Plater Relationship Specialty Start Date End Date Analisa Martinez PA [address] [place] [id number] PCP - General 11/30/22 documented as of this encounter
--- OUTSIDE RECORDS SUMMARY | 2024-05-04 18:59 | XMS_ITS | Encounter Summary ---
[place] [address] Care Team Providers Care District Director Name Role Phone Analisa Martinez Primary Care Provider [phone] Encounter Details Date Type Department Care Team (Late st Contact Info) Description 03/02/2023 Telephone Obstetrics [place] [address] Loida Hall RN Social History Tobacco Use Types Packs/Day Years Used Date Smoking Tobacco: Every Day Cigarettes Smokeless Tobacco: Never Comments:Cut back from 2 pac ks Alcohol Use Standard Drinks/Week Comments Not Currently 0 (1 standard drink = 0.6 oz pur e alcohol) Comments Yes Sex and Gender Information Value Date Recorded Sex Assigned at Not on file Gender Identity Not on file Sexual Orientation Not on file documented as of this encounter Miscellaneous Notes * Telephone Encounter - Loida Hall RN - 03/04/2023 9:02 AM EDT TC to Isabel to follow up on Wednesday's call. Isabel states that the transient abdominal pain she was experiencing has improved. She does experience discomfort when the baby is moving around, but that goes away when the baby stops moving. Isabel knows to call with any further questions or concerns. * Telephone Encounter - Loida Hall RN - 03/02/2023 11:29 AM EDT Returned call to Isabel Julian [place] [id number] [facility] patient H/O previous section Reports pains in lower abdomen whenever she goes from sitting to standing, pain is only seconds long and only occurs occasionally during the day and only when going from sitting to standing. She is mainly concerned because she states she was told that she is at risk for uterine rupture andjust wants to be sure the pain she is having is not related to that. Reports normal movement Denies vaginal bleeding or LOF Counseled patient that what she describes is in-line with round ligament pain. This is considered normal in , usually more predominant in the second trimester, but can also occur in the third trimester (and you are early in your third trimester). Round ligament pains happen just as you describe, they come in short painful bursts and generally go away in a few second. The round ligament supports the uterus and stretches during . Round ligament pain can be brought on by sudden movements, like sitting to standing quickly, coughing, laughing etc (just a few examples). I let her know that I would review her note with the covering [facility] provider and would get back to her if any additional advice. Patient instructed that if she has pain that lasts more than a few minutes, or is not relieved by rest, or if she has pain that is accompanied by vaginal bleeding, cramping and/or nausea/vomiting please let us know right away by calling [phone] (and that after hours provider can be reached by this number as well). Isabel verbalized understanding of and agreement with plan. documented in this encounter Plan of Treatment Not on file documented as of this encounter Visit Diagnoses Not on filedocumented in this encounter Care Teams District Director Relationship Specialty Start Date End Date Analisa [place] [address] PCP - General 11/30/22 documented as of this encounter
--- OUTSIDE RECORDS SUMMARY | 2024-05-04 18:59 | XMS_ITS | Encounter Summary ---
Author Organization [facility] Address [facility] [place] [address] Care Team Providers Care Batch Mixer Name Role Phone Analisa Martinez Primary Care Provider [phone] Encounter Details Date Type Department Care Team (Latest Contact Info) Description 02/19/2023 9:46 AM EDT - 02/19/2023 11:59 PM EDT Hospital En[place] [address] Kate Lindsay MD [facility] OBSTETRICS [place] [address] Dehiscence of old uterine scar with extension before onset of labor, delivered; Previous delivery affecting , antepartum Discharge Disposition: Home Social History Tobacco Use [...] on file documented as of this encounter Medications at Time of Discharge Medication Sig Dispensed Refills Start Date End Date acetaminophen (Tylenol) 325 mg tablet Take 650 mg by mouth every 4 hours as needed for Pain. 04/15/2023 pantoprazole EC (Protonix) 40 mg Tablet, Delayed Release (E.C.) 10/29/202204/28 ferrous gluconate (Fergon) 324 mg (37.5 mg iron) Tablet Take 324 mg by mouth daily. 05/24/2023 vitamin 27 & [id number] 60 mg iron-1 mg Tablet Take 1 tablet by mouth daily. 05/24/2023 documented as of this encounter Plan of Treatment Not on file documented as of this encounter Procedures Procedure Name Priority Date/Time Associated Diagnosis Comments US OB FOLLOW UP Routine 02/19/2023 10:15 AM EDT Dehiscence of old uterine scar with extension before onset of labor, delivered Previous delivery affecting , antepartum documented in this encounter Results * US OB Follow Up (02/19/2023 10:15 AM EDT) Anatomical Region Laterality Modality Pelvis, Abdomen Ultrasound 02/19/2023 10:0 9 AM EDT Impressions 02/19/2023 10:22 AM EDT 3rd Trimester Summary Single intrauterine with a gestational age of 28w 6d based on Previous Ultrasound ??(11/17/22) Composite age based on the current ultrasound alone is 29w 6d. Estimated weight corresponds to the 91th percentile for 28w 6d. Current growth parameters are consistent with prior dating indicating normal growth. Amniotic fluid volume is Normal Anatomical survey is limited due to the late gestational age. Transvaginal ultrasound examination was performed to visualize the lower uterine segment. The lower uterrine segment myometrium measures 1.2-1.5mm in the thinnest area. Thank you for letting us participate in the care of this patient. If you are a health care provider and have any questions regarding this report, please contact the number above. For patients who have questions, please contact the health health and social care teacher that requested your imaging first. ?Fide Haas, Staff Physician Electronically Signed Final Report ?? 02/19/2023 10:22 am Narrative 02/19/2023 10:22 AM EDT OBSTETRICS REPORT ?(Signed Final 02/19/2023 10:22 am) PATIENT INFO: ID #: ? [id number] ?: ??[birth year] (27 yrs)(F) Name: ? DENISE JULIAN ? Visit Date: 02/19/2023 10:09 am PERFORMED BY: Performed By: ? Lima Cummins RDMS Attending: ?Waldo MENESES, Fide Weir Referred By: ?Kate LINDSAY Location: ? [place] SERVICE(S) PROVIDED: UOBFOL - Efw - Growth ??- Brown - [id number] ?[id number] UOBTVCER - Transvaginal ??2nd Trimester - ?[id number] Cervical Length - [id number] INDICATIONS: 28 weeks gestation of ?Z3A.28 h/o uterine window at CS; growth, evaluate XI TECHNIQUE/SCAN QUALITY: Technique: ?? Transducer ID#:1 EVALUATION: Num Of Fetuses: ? 1 Heart Rate(bpm): ??137 Cardiac Activity: ? Observed, normal rhythm Presentation: ? Cephalic Placenta: ? Posterior P. Cord Insertion: ?Not well seen Amniotic Fluid AMILCAR FV: ?Normal AMILCAR Sum(cm) ? Largest Pocket(cm) 16.7 ?4.8 RUQ(cm) ? RLQ(cm) ? LUQ(cm) ?LLQ(cm) 3.8 ? 4.7 ? 4.8 ?3.4 --------- BIOMETRY: --------- BPD: ?72.4 ??mm ? G.Age: ?? 29w 0d ?44 ??% OFD: ?95.5 ??mm HC: ?268.2 ??mm ? G.Age: ?? 29w 2d ?28 ??% AC: ?255.2 ??mm ? G.Age: ?? 29w 5d ?69 ??% FL: ? 60.1 ??mm ? G.Age: ?? 31w 2d ?92 ??% LV: ?3.8 ??mm CI: ?75.8 ??% ? 70 - 86 FL/HC: ? 22.4 ??% ? 19.6 - 20.8 HC/AC: ? 1.05 ?0.99 - 1.21 FL/BPD: ?83.0 ??% ? 71 - 87 FL/AC: ? 23.6 ??% ? Est. FW: ?1513 ??gm ?3 lb 5 oz ?91 ??% GESTATIONAL AGE: Clinical CHEVY: ??27w 1d ?CHEVY: ?? 05/20/23 U/S Today: ? 29w 6d ?CHEVY: ?? 05/01/23 Best: ?28w 6d ?? Det. By: ??Previous ? CHEVY: ?? 05/08/23 ? Ultrasound ? (11/17/22) -------- ANATOMY: -------- Cranium: ? Visualized Cavum: ? Visualized Ventricles: ?Visualized Choroid Plexus: ?Visualized Cerebellum: ?Visualized Posterior Fossa: ? Visualized Nuchal Fold: ? Not evaluated at this gestational age Face: ?Limited views Heart: ? 4-chamber view appears normal RVOT: ?Visualized LVOT: ?Visualized Stomach: ? Visualized Abdomen: ? Within Normal Limits Abdominal Wall: ?Cord Insertion - WNL Cord Vessels: ?3-vessels- WNL Kidneys: ? Visualized Bladder: ? Visualized Upper Extremities: ? Limited views Lower Extremities: ? Limited views CERVIX UTERUS ADNEXA: Right Ovary Visualized Left Ovary Visualized Procedure Note Fide Haas MD - 02/19/2023 OBSTETRICS REPORT (Signed Final 02/19/2023 10:22 am) PATIENT INFO: ID #: [id number] : [birth year] (27 yrs)(F) Name: DENISE JULIAN Visit Date: 02/19/2023 10:09 am PERFORMED BY: Performed By: Lima Cummins RDMS Attending: Fide Haas MD Referred By: Kate LINDSAY Location: [place] SERVICE(S) PROVIDED: UOBFOL - Efw - Growth - Brown - [id number] UOBTVCER - Transvaginal 2nd Trimester - [id number] Cervical Length - [id number] INDICATIONS: 28 weeks gestation of Z3A.28 h/o uterine window at CS; growth, evaluate XI TECHNIQUE/SCAN QUALITY: Technique: Transducer ID#:1 EVALUATION: Num Of Fetuses: 1 Heart Rate(bpm): 137 Cardiac Activity: Observed, normal rhythm Presentation: Cephalic Placenta: Posterior P. Cord Insertion: Not well seen Amniotic Fluid AMILCAR FV: Normal AMILCAR Sum(cm) Largest Pocket(cm) 16.7 4.8 RUQ(cm) RLQ(cm) LUQ(cm) LLQ(cm) 3.8 4.7 4.8 3.4 --------- BIOMETRY: --------- BPD: 72.4 mm G.Age: 29w 0d 44 % OFD: 95.5 mm HC: 268.2 mm G.Age: 29w 2d 28 % AC: 255.2 mm G.Age: 29w 5d 69 % FL: 60.1 mm G.Age: 31w 2d 92 % LV: 3.8 mm CI: 75.8 % 70 - 86 FL/HC: 22.4 % 19.6 - 20.8 HC/AC: 1.05 0.99 - 1.21 FL/BPD: 83.0 % 71 - 87 FL/AC: 23.6 % 20 - 24 Est. FW: 1513 gm 3 lb 5 oz 91 % GESTATIONAL AGE: Clinical CHEVY: 27w 1d CHEVY: 05/20/23 U/S Today: 29w 6d CHEVY: 05/01/23 Best: 28w 6d Det. By: Previous CHEVY: 08/12/23 Ultrasound (11/17/22) -------- ANATOMY: -------- Cranium: Visualized Cavum: Visualized Ventricles: Visualized Choroid Plexus: Visualized Cerebellum: Visualized Posterior Fossa: Visualized Nuchal Fold: Not evaluated at this gestational age Face: Limited views Heart: 4-chamber view appears normal RVOT: Visualized LVOT: Visualized Stomach: Visualized Abdomen: Within Normal Limits Abdominal Wall: Cord Insertion - WNL Cord Vessels: 3-vessels- WNL Kidneys: Visualized Bladder: Visualized Upper Extremities: Limited views Lower Extremities: Limited views CERVIX UTERUS ADNEXA: Right Ovary Visualized Left Ovary Visualized IMPRESSION 3rd Trimester Summary Single intrauterine with a gestational age of 28w 6d based on Previous Ultrasound (11/17/22) Composite age based on the current ultrasound alone is 29w 6d. Estimated weight corresponds to the 91th percentile for 28w 6d. Current growth parameters are consistent with prior dating indicating normal growth. Amniotic fluid volume is Normal Anatomical survey is limited due to the late gestational age. Transvaginal ultrasound examination was performed to visualize the lower uterine segment. The lower uterrine segment myometrium measures 1.2-1.5mm in the thinnest area. Thank you for letting us participate in the care of this patient. If you are a health care provider and have any questions regarding this report, please contact the number above. For patients who have questions, please contact the health health and social care teacher that requested your imaging first. Fide Haas, Staff Physician Electronically Signed Final Report 02/19/2023 10:22 am E Hyacinth Lindsay MD IMG US OB ORDERAB LES documented in this encounter Visit Diagnoses Diagnosis Dehiscence of old uterine scar with extension before onset of labor, delivered Previous delivery affecting , antepartum Previous delivery, antepartum condition or complication documented in this encounter Care Teams Batch Mixer Relationship Specialty Start Date End Date Analisa Martinez PA [address] [place] [address] PCP - General 11/30/22 documented as of this encounter
--- OUTSIDE RECORDS SUMMARY | 2024-05-04 18:59 | XMS_ITS | Encounter Summary ---
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 Reports she is having cramping periodically, sometimes super intense and sometimes mild. Reports she had diarrhea today and cramping this afternoon, cramping now is not as bad. Reports every time she bends down she has pressure. +FM. No LOF. No vaginal bleeding. Ewa Kwon MD, PGY-3 Obstetrics and Gynecology 04/05/2023 documented in this encounter Plan of Treatment Not on file documented as of this encounter Visit Diagnoses Not on filedocumented in this encounter Care Teams Casting Machine Operator Relationship Specialty Start Date End Date Analisa Martinez PA [address] [place] [address] PCP - General 11/30/22 documented as of this encounter
--- OUTSIDE RECORDS SUMMARY | 2024-05-04 18:59 | XMS_ITS | Encounter Summary ---
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 Role Phone Analisa Martinez Primary Care Provider [phone] Reason for Visit * Auth/Cert (Routine) Specialty Diagnoses / Procedures Referred By Contac t Referred To Contact Diagnoses prrior with window Procedures PRO DELIVERY ONLY ER OBSVO Sujata Prater MD [facility] OBST[facility] [place] [address] [facility] Referral ID Status Reason Start Date Expiration Date Visits Re quested Visits Authorized [id number] 1 1 Encounter Details Date Type Department Care Team (Latest Contact Info) Description 04/12/2023 10:19 AM EDT - 04/15/2023 4:16 PM EDT [place] [id number] Mary Headley MD [facility] OBSTETR[facility] [place] [address] Dehiscence of old uterine scar with extension before onset of labor, delivered; H/O section Discharge Disposition: Home Social History Tobacco Use [...] Sign Reading Time Taken Comments Blood Pressure 113/54 04/15/2023 10:18 AM EDT Pulse 82 04/15/2023 10:18 AM EDT Temperature 36.6 ??C (97.9 ??F) 04/15/2023 10:18 AM E DT Respiratory Rate 16 04/15/2023 10:18 AM EDT Oxygen Saturation 96% 04/15/2023 10:17 AM EDT Inhaled Oxygen Concentration - - Weight 99.8 kg (220 lb) 04/13/2023 1:50 PM EDT Height 160 cm (5' 3) 04/13/2023 1:50 PM EDT Body Mass Index 38.97 04/13/2023 1:50 PM EDT documented in this encounter Discharge Summaries * Maria Teresa Dhillon MD - 04/15/2023 2:39 PM EDT Discharge Summary Patient Name: Denise Julian Patient Age: 27 y.o. Language: Honduran Race: White Ethnicity: Not nor Admit date: 04/12/2023 Discharge date and time: 04/15/2023 Attending Physician: Mary Headley MD Discharge Physician: Dr. Fide Haas Care Provider: [facility] Referring Hospital: N/A Follow-up Recommendations for Providers: - 2 week mood check - 6 week visit Inpatient Provider Contact Information: [facility] Department, Discharge Diagnoses (Hospital Problems) and Secondary Diagnoses (Chronic Problems) Active Hospital Problems Diagnosis H/O section Resolved Hospital Problems No resolved problems to display. Active Non-Hospital Problems Diagnosis labor History of rupture of uterus Previous delivery affecting Operations/Major Procedures: 04/12/2023 - scheduled repeat section, bilateral salpingectomy Indication for Admission: scheduled elective section History of Presentation: Denise Julian is a 27 y.o. at 36w2d gestation being admitted for scheduled repeat section. Admission History (per admit note cut and paste) HPI: Denise is doing well this morning, expecting baby [...] adhesive. Hospital Course Including Delivery and Events Denise Julian is a 27 y.o. at 36w2d admitted for scheduled repeat section with bilateral salpingectomy in setting of thin lower uterine segment noted on US (1.2mm at thinnest point), otherwise complicated by prior C/S x2, tobacco use disorder. Patient underwent repeat low transverse section complicated by significant intraabdominal adhesions, and uterine atony for which she received TXA x2, methergine, and misoprostol. Viable female infant. APGARS of 5 and 6. Weight of [...] Delivery Information Information for the patient's : Eliel, Baby Girl [[id number]] INFORMATION Baby Jese Julian 04/12/2023 4:21 PM by Lower Segment Transverse Sex: female Gestational Age: 36w2d [place] Measurements: Weight: 6 lb 5.9 oz (2890 g) APGARS One Minute Five Minutes Ten Minutes Totals: 5 6 Blood Loss: OB OR Quantitative Blood Loss Totals 04/12/23 1300 - 04/12/23 1438 None Vital signs at Discharge: BP: 113/54, Heart Rate: 82, Temp: 36.6 ??C (97.9 ??F), Resp: 16, BMI (Calculated): 38.97 Height: 160 cm (5' 3) (04/13/23 1350) Weight: 99.8 kg (220 lb) (04/13/23 1350) Functional and Cognitive status: Intact Important Studies and Lab Data: Labs: Last wbc, hgb, hct plt Recent Labs 04/13/23 0515 WBC 18.6* HGB 10.4* HCT 30.2* Recent Results (from the past 72 hour(s)) POCT Glucose Result Value Ref Range POC Glucose 129 65 - 199 mg/dL Hemogram Result Value Ref Range WBC 18.6 (H) 4.0 - 9.5 x10(3)/mcL RBC 3.55 (L) 4.00 - 5.21 x10(6)/mcL Hemoglobin 10.4 (L) 11.7 - 15.5 g/dL Hematocrit 30.2 (L) 35.7 - 45.8 % MCV 85.1 82.6 - 94.4 fL MCH 29.3 27.1 - 32.0 pg MCHC 34.4 31.7 - 35.0 g/dL Platelets 137 (L) 145 - 357 x10(3)/mcL RDWSD 41.2 37.0 - 46.0 fL RDWCV 13.2 11.5 - 14.1 % MPV 13.2 (H) 7.6 - 12.9 fL nRBC % Auto 0.0 % nRBC Abs Auto 0.000 0.000 - 0.000 x10(3)/mcL Differential, Automated Result Value Ref Range Neutrophils % 84.2 % Neutr Abs (ANC) 15.69 (H) 1.70 - 6.10 x10(3)/mcL Lymphocytes % 7.7 % Lymphocytes Abs 1.4 0.9 - 3.2 x10(3)/mcL Monocytes % 7.1 % Monocyte Abs 1.3 (H) 0.3 - 0.9 x10(3)/mcL Eosinophils % 0.0 % Eosinophils Abs 0.0 0.0 - 0.4 x10(3)/mcL Basophils % 0.2 % Basophils Abs 0.0 0.0 - 0.1 x10(3)/mcL Immature Gran % 0.80 % Lisa Gran Abs 0.14 (H) 0.00 - 0.04 x10(3)/mcL Syphilis Screening Antibody with reflex RPR Result Value Ref Range Syphilis IgG/IgM Negative Negative Studies: None Pending Studies and Lab Data: Pathology for Placenta, fallopian tubes Discharge Conditions/Prognosis: good Discharge to: Home Contraceptive Plans: BS at time of CS Allergies at Discharge: Allergies Allergen Reactions Environmental [Latex, Natural Rubber] Rash Penicillins Varicella Vaccines Hives Immunizations Given this Hospitalization: There is no immunization history on file for this patient. Discharge Medications: Your Medications New Medications Dose Details docusate sodium 100 mg capsule Commonly known as: Colace Take 1 capsule by mouth 2 times daily for 10 days. 100 mg Quantity: 20 capsule Refills: 0 ibuprofen 800 mg tablet Commonly known as: Advil Take 1 tablet by mouth every 6 hours. 800 mg Quantity: 60 tablet Refills: 0 lidocaine 5% Adhesive Patch, Medicated Commonly known as: Lidoderm Apply 1 patch onto the skin daily. (leave on for 12 hours and remove for 12 hours) Quantity: 12 patch Refills: 0 oxyCODONE 5 mg tablet Commonly known as: Roxicodone Take 1 tablet by mouth every 4 hours as needed for Pain (for pain scale 6-8). 5 mg Quantity: 7 tablet Refills: 0 polyethylene glycoL 17 gram oral powder packet Commonly known as: Miralax Take 17 g by mouth daily. 17 g Quantity: 14 each Refills: 0 Continued medications with new dosing Dose Details acetaminophen 325 mg tablet Commonly known as: Tylenol Take 3 tablets by mouth every 6 hours. What changed: how much to take when to take this reasons to take this 975 mg Quantity: 60 tablet Refills: 0 Continued medications, unchanged Dose Details ferrous gluconate 324 mg (37.5 mg iron) tablet Commonly known as: Ferate Take 324 mg by mouth daily. 324 mg Refills: 0 pantoprazole EC [address] tablet Commonly known as: Protonix Refills: 0 vitamin 27 & fzhefiy-pzjg-BS 60 mg iron-1 mg Tablet Take 1 tablet by mouth daily. 1 tablet Refills: 0 Smoking Status at Discharge: Social History Tobacco Use Smoking Status Every Day Packs/day: 0.50 Types: Cigarettes Smokeless Tobacco Never Tobacco Comments Cut back from 2 packs Instructions Given to Patient at Discharge: There are no outpatient Patient Instructions on file for this admission. General Instructions None Future Appointments and Orders Future Orders Complete By Expires Durable Medical Equipment Order [EQ148 Custom] As directed Process Instructions: Scheduling Instructions: Comments: Denise Julian 1995 [facility] [id number] 's : 04/12/23 Insurance: [place] Pay[place] Plan Address Payor Plan Phone Number Payor Plan Fax Number Effective Dates [address] 01/25/2023 - None Entered [facility] [phone] Subscriber Name Subscriber Date Member ID DENISE JULIAN 1995 [id number] [employer] # [phone] Symphony breast pump [id number] Length of need: 3 months Infant's diagnosis: Infant born at 36 weeks 2 days gestation. Infant admitted to the N for respiratory distress Purpose of Appliance: To Initiate and Maintain Medical Necessity: /Lactating Mother- Z39.1 Breast Engorgement relative to infant born at 36 weeks gestation Feeding problem of , unspecified P92.9 Premature in ICN from mother P07.30 36 completed weeks P07.39 (36 weeks, 0 days, through 36 weeks, 6 days) A standard breast pump will not provide sufficient milk for this baby. [facility] NPI #: [id number] [facility] [place]ESS [place] MEDICA[place] MEDICAL NECESSITY FORM (MNF) ORTHOTICS, PROSTHETICS, MEDICAL SUPPLIES & EQUIPMENT All claims for supplies and equipment require a written order. Orders must be signed by a physician, physician cardiology physician assistant, or nurse practitioner. All home health plans of care require a physician signature. Copies of the order must be kept in the patient record by both the ordering provider and Durable Medical Equipment (DME) supplier. It is the responsibility of the ordering provider to complete or review this Medical Necessity Form (MNF) and provide adequate documentation supporting the medical need for the items listed. The ordering provider must provide this documentation either for the Medicaid beneficiary to take to the DME supplier of choice, or directly to the DME supplier. The DME chen pplier must be enrolled in [place] Medicaid. The ordering provider must document a description of the device and/or its HCPCs code. If the ordering provider does not provide the HCPCs code, the DME supplier must provide the HCPCs code for all prior authorizations and on all claims, on this form or on other documentation submitted to the HA and DXC. The codes submitted to DVHA and DXC must matchthe description documented by the ordering provider. All orders must adhere to state and federal rules and regulations. [place] Medicaid Rules can be found online at http://humanservices.[place].[facility]/bz-czit-noxei. Section A: (must be completed or reviewed and signed by ordering provider) Beneficiary's name: Denise Julian Medicaid ID#: [place] Pay[place] Plan Address Payor Plan Phone Number Payor Plan Fax Number Effective Dates [address] 01/25/2023 - None Entered [facility] [phone] Subscriber Name Subscriber Date Member ID DENISE JULIAN 1995 [id number] Diagnoses: born at 36 weeks 2 days gestation. admitted to the ICN for respiratory distress Purpose of Appliance: To Initiate and Maintain Medical Necessity: /Lactating Mother- Z39.1 Breast Engorgement relative to born at 36 weeks gestation Feeding problem of , unspecified P92.9 Premature Infant in ICN from mother P07.[address] of service: Is the beneficiary living in a prison facility? Yes [ ] No[x] Is the request part of a home health plan of care? Yes [x] No[ ] 4. HCPCs Code Description Modifier Medical Necessity of Item Expected Length of Need: 3 months E0604, Hospital Grade Breast Pump _X__ To Initiate and Maintain . A standard breast pump will not provide adequate milk supply for patient. ____X 1 ___ ___ ___ ___ ___ ___ ___ ___ ___ ___ ___ ___ ___ ___ ___ ___ The HCPCS code(s) may be provided by the supplying provider when the ordering provider has includeda clear description of the required item(s). I CERTIFY THAT THE ITEM(S) PRESCRIBED ABOVE IS(ARE) A MEDICALLY NECESSARY PART OF THE COURSE OF TREATMENT AND NOT FOR CONVENIENCE, COMFORT, OR PRECAUTIONARY PURPOSES 5. Ordering provider's name & address: Please see ordering physician signature below. [facility], [address] [place] [address] 6. Ordering provider's signature: Please see order signature below. Date signed: 04/13/23. 7. Ordering provider's Medicaid provider #: [id number]_ See back of form for DME information and instructions --- Section B FOR DURABLE MEDICAL EQUIPMENT AND SUPPLIES (completed by the DME supplier) 8. Date supplies/original equipment first dispensed: ____/____/ 9. Name of DME employee completing above information: 10.Signature of DME employee: Phone#: 11. Medicaid DME provider #: Claims: All DME requires an MNF to be submitted with the claim, with the exception of certain itemsthat are identified in the Provider Manual, available at: www.BuzzDashmedicaid.com. For exceptions, an MNF must be kept on file by the DME supplier. Prior Authorization: The DME supplier must include a copy of an MNF with every Prior Authorization request. Fax the MNF and any other supporting documents to the [facility] at . Use of this [facility] Medical Necessity Form is recommended for all prior authorization requests to ensure timely processing. Medicaid may request a copy of the medical record upon audit. *INSTRUCTIONS FOR SECTIONS A & B* Section A must be completed or reviewed, signed, and dated by the ordering physician/physician cardiology physician assistant/nurse practitioner. Section B must be completed by the DME supplier when equipment and/or supplies are ordered. Beneficiary's first & last name, and Medicaid ID number. List all relevant diagnoses, including status diagnoses such as colostomy, tracheostomy. If this isan initial order or there have been significant clinical changes, attach documentation reflecting the provider's treatment plan. All DME ordered within a home health plan of care require a physician signature. The place of service in which the item will be used. If it is to be used in a facility, document the facility name and address. A place of service code may be used. List for each item being ordered: HCPCS code (optional for ordering provider, but then must appear on other documentation submitted to [facility] for PA and to [facility] for billing), medical necessity rationale, expected length of need (will be interpreted as months unless stated otherwise), and the number ofitems needed (for example: 2 bottles of sterile saline per month). NOTE: If the quantity ordered ismore than the number allowed (based on customary usage and as listed in the [facility] DME Restriction list, available at: http://[facility].[place].gov/for-providers/kzqcmcfb-lvywxpst-bnolzgydpr), an explanation from the physician is required. The ordering provider's name and address. The ordering provider's signature must be that of the ordering provider and attests to the validityof the information given. The date of this signature is also required. Medicaid provider number and phone number. To be completed by the DME supplier: the date that the base device was first provided. If there is no base device (for example, incontinence products), document the date the supply was first provided. The name of the DME employee completing the form. DME employee's signature and phone number. DME Medicaid provider number. Questions: Name/Description of requested item: Hospital grade rental pump Size requested: Follow-up [UZX641 Custom] As directed Process Instructions: Scheduling Instructions: Comments: - gestational diabetic counseling with childbirth educator at the time of the visit if there is a diagnosis of gestational diabetes. Questions: Discharge References/Attachments None documented in this encounter Discharge Instructions * Discharge Instructions* Tessie Hernandez RN - 04/15/2023 3:01 PM EDT Images from the original note were not included. Nursing Inpatient Progress C - Section Follow-up Follow-up: ? 2 week and 6 week visit will be scheduled with your primary OB provider ? 6 week visit will be scheduled with your primary OB provider ? please call to schedule your 6 week visit with your primary OB provider Maternal Discharge Instructions Rest: Although it may seem impossible to get enough rest, simple planning will help. Plan to rest and/or sleep when your baby does. Limiting visitors also helps. Other family members can help by doing housework, caring for other children and/or helping limit visitors. Activity: After delivery, it is safe to climb stairs at home and gradually increase your activity level. Do not drive for two weeks or while taking narcotic pain medicine as your reaction time may be decreased. Do not lift more than 15 pounds for 6 weeks and no swimming until the vaginal bleeding stops. Nutrition: Your diet following the of your baby is as important as it was before the baby wasborn. Drinking a minimum of 6-8 glasses of water a day will help keep you hydrated. Continue takingyour vitamins until you are no longer . Continue taking stool softeners as recommended by the doctor. Do not attempt to lose weight during the first six weeks. Sweating. Hormonal changes following delivery frequently cause night sweats which are normal over the next 6 weeks. Sleeping on towels and using a fan may make you more comfortable. Incision: Wash the incision with soap and water and pat dry. It is normal to have clear or pinkish fluid seep from the incision. Gauze pads or sanitary napkins may help to keep the incision dry if itis located in a fold under your tummy. After 7-10 days remove any steri-strips which may still be over your incision. If the incision has more redness, yellow drainage, or becomes more painful, contact the obstetrics clinic. Lochia: (Flow) Your flow should be no heavier than a normal period. It will be bright red and then transition to pink, brown, yellow, and finally colorless. This may last a few weeks. If your vaginalbleeding becomes bright red again, decrease your activity. We recommend pelvic rest until your bleeding and spotting stops. This may take up to six weeks. Pelvic rest includes activities such as douching, use of tampons/menstrual cups or sexual intercourse. Bladder: For the next 2 weeks, empty your bladder every 2 hours while awake and at least every 4 hours at night. Perineum: For about a week continue to rinse yourself with warm water when you use the toilet. A sitz bath with Epsom salt taken 2 times a day and use of witch maida may help relieve soreness. Kegel exercise, done regularly throughout the day, will help tighten the perineal muscles and speed recovery. Breast Care for mothers: Practice careful positioning and frequent feeding as demonstrated in the hospital. The printed information in your packet covers this in detail. For More Information: https://www.acog.org/Patients or refer to ACOG's Your and Childbirth: Month to Month book which you may have received from the OB Clinic. Vaccination: If you received the Measles, Mumps, and Rubella (MMR) vaccine, varicella vaccine, or Hepatitis A vaccine during your hospitalization make sure to discuss this with your OB provider or your PCP at your next visit. You may need a second dose of the vaccine to receive effective vaccine protection. Medications: Please take your medication exactly as prescribed. Read all instructions that come with your medication. Using narcotic pain medication (such as oxycodone, hydromorphone (Dilaudid), morphine, fentanyl, ortramadol) may cause addiction. While addiction is more common in people with a personal or family history of addiction, it can occur in anyone. Taking more than the prescribed amount of medication or using with alcohol or other drugs can causeyou to stop breathing resulting in coma, brain damage, or . Opioids (oxycodone, hydromorphone/Dilaudid, morphine, fentanyl, tramadol) can slow reaction time, cause drowsiness, or cloud judgement. It is unsafe for you to drive or operate heavy machinery while taking this medication. Opioids (oxycodone, hydromorphone/Dilaudid, morphine, fentanyl, tramadol) are at risk of being diverted by anyone with access to your home. Opioids should be stored in a safe and secure place, such as a locked cabinet or safe. Unused opioids (oxycodone, hydromorphone/Dilaudid, morphine, fentanyl, tramadol) should be disposedof according to the label or patient information. If there are no specific instructions, medications may be returned to a take-back location or mixed with a small amount of water and an undesirable waste substance such as coffee grounds or cat litter. If you were taking opioids like heroin, methadone, Percocet and buprenorphine during and you stopped for any period of time, you are now more sensitive to this drug. That means that your old dose will be too strong, and you will be at risk for overdose if you take it. As we all are aware, opioid use is a concern in [place] and [place]. We recommend that families with any member at risk for overdose have a prescription for naloxone to reverse an overdose. Your providers would be happy to give you one. Depression occurs in a large percentage of women. It often occurs after 2 weeks and can last weeks or months. This is different than ??? blues?? which can occur during the firstfew days after you deliver. https://www.acog.org/Patients/FAQs/-Depression Signs of depression: Feeling sad, hopeless or losing interest in daily activities. Having a hard time falling asleep or sleeping too much; feeling tired even after a good sleep. Eating too much or too little. Writing, talking or thinking about hurting yourself or someone else. Call your provider or nurse as soon as you notice any of these signs or feel overwhelmed. Emergency Resources National Suicide Hotlines: or [place]: Call/Text [facility] Mental Health Crisis Hotline: Call/Text [facility] Mental Health Hotline: Call/Text Call your doctor or switchboard operator for: Seizure (call 911) Headache which isn't relieved with Tylenol Headache with visual changes Pain in your chest Shortness of breath Pain in upper right abdomen Fever more than 100.4 F Breast with hot, hard, tender areas plus flu-like symptoms including muscle aches and feeling unwell all over Increased abdominal pain, nausea, shaking chills Increased redness or soreness over your incision/ incision isn't healing Heavy bleeding that saturates a pad an hour Clots larger than an egg Red or swollen leg which is painful or warm to the touch Feeling of bladder fullness or pain Unable to urinate when feeling the urge Pain or bleeding with urination Urinary leakage without coughing or sneezing Urinary urgency or increased frequency Keep your follow up appointment. You may call the [facility] at any time for guidance or for answers to questions that come up prior to you follow up appointment. Your [facility] Provider can be reached during office hours at [facility] AFTER OFFICE HOURS for the women's basketball coach or switchboard operator internal audit consultant Post- Warning Signs Most women who give recover without problems. But any woman can have complications after the of a baby. Learning to recognize these POST- warning signs and knowing what to do can save your life. These post- warning signs can become life-threatening if you don't receive medical care right away because: Pain in chest, obstructed breathing or shortness of breath (trouble catching your breath) may mean you have a blood clot in your lung or a heart problem Seizures may mean you have a condition called eclampsia Thoughts or feelings of wanting to hurt yourself or your baby may mean you have depression Bleeding (heavy), soaking more than one pad in an hour or passing an egg-sized clot or bigger may mean you have an obstetric hemorrhage Incision that is not healing, increased redness or any pus from episiotomy or C- section site may mean you have an infection Redness, swelling, warmth, or pain in the calk area of your leg may mean you have a blood clot Temperature of 100.4??F or higher, bad smelling vaginal blood or discharge may mean you have an infection Headache (very painful), vision changes, or pain in the upper right area of your belly may mean youhave high blood pressure or post preeclampsia Provider electronic signature confirms that discharge instructions were reviewed with the patient. A copy was printed and given to the patient. documented in this encounter Medications at Time of Discharge Medication Sig Dispensed Refills Start Date End Date docusate sodium (Colace) 100 mg capsule Take [...] for 12 hours) 12 patch 04/15/2023 04/28/2023 oxyCODONE (Roxicodone) 5 mg tablet Take 1 tablet by mouth every 4 hours as needed for Pain (for pain scale 6-8). 7 tablet 04/15/2023 04/16/2023 polyethylene glycoL (Miralax) 17 gram oral powder packet Take 17 g by mouth daily. 14 each 04/15/2023 04/28/2023 pantoprazole EC (Protonix) 40 mg Tablet, Delayed Release (E.C.) 10/29/2022 04/28/2023 ferrous gluconate (Fergon) 324 mg (37.5 mg iron) Tablet Take 324 mg by mouth daily. 05/24/2023 vitamin 27 & [id number] 60 mg iron-1 mg Tablet Take 1 tablet by mouth daily. 05/24/2023 documented as of this encounter Progress Notes * Gayle Sanon RN - 04/15/2023 4:03 PM EDT VSS. FF. Lochia light amount, rubra. Voiding with no difficulty and ambulating independently to NICU to be with infant daughter. Abdominal incision is clean and healing, edges are well approximated and no drainage is noted. Taking ibuprofen and acetaminophen for post operative discomfort with good relief. Discharge education completed and patient Dc'd to home with S.O. * Maria Teresa Dhillon MD - 04/15/2023 1:33 PM EDT Delivery Note Patient ID: Denise Julian is a 27 y.o. POD #3 after repeat Delivery and bilateral salpingectomy at 36w2d for thin lower uterine segment, concern for window, with prior C/S x2, tobaccouse disorder. Delivery complicated by extensive intraabdominal adhesions and intermittent poor tone, QBL 880 mL. S: Denies is feeling ok this morning. She is physically and emotionally ready to go home, but sadto leave baby. She is physically feeling well, pain is well- controlled, tolerating PO without n/v, voiding without issue, has had flatus/BMs. Lochia is appropriate. Pumping for baby in ICN is going better than she expected. O: Last value Range last 24 hrs Temperature Temp: 36.6 ??C (97.9 ??F) Temp: [36.5 ??C (97.7 ??F)-36.6 ??C (97.9 ??F)] Heart Rate Heart Rate: 82 Heart Rate: [77-82] Blood Pressure BP: 113/54 BP: (110-113)/(54-58) Respiratory Rate Resp: 16 Resp: [16-18] SpO2 SpO2: 96 % SpO2: [96 %-99 %] No intake or output data in the 24 hours ending 04/15/23 1333 Exam: Gen: NAD Cardiac: RRR Pulmonary: CTAB, nl respiratory effort Abdomen: soft, ND, no rebound or guarding, fundus firm 1 cm below the umbilicus, mildly tender. Incision/Dressing: clean/dry/intact, well approximated with Dermabond over subcuticular closure, noerythema/exudate. Lidocaine patches in place above incision. Extremities: nontender, no edema. Labs: Recent Labs 04/13/23 0515 WBC 18.6* HGB 10.4* HCT 30.2* PLATELET 137* Assessment/Plan: Denise Julian is a 27 y.o. s/p CS+BS, doing well this morning. General Care Pain - increased to maximum dosing of ibuprofen and acetaminophen. Recommended trial of abdominal binder. Pt meeting appropriate post op milestones. Voiding spontaneously. Continue routine post op care. Hgb 10.4 from 11.0 preop s/p EBL 880 mL. Pt asymptomatic for acute blood loss anemia. Continue to monitor for signs or symptoms of worsening anemia. VTE prophylaxis: SCDs, ambulation Immunization needs: N/A - pumping for baby in ICN Contraception plan: s/p bilateral salpingectomy Desires d/c home today, POD#3 This patient was seen and discussed on rounds. Maria Teresa Dhillon MD PGY4 04/15/2023 * Fide Haas MD - 04/15/2023 1:29 PM EDT Delivery Note Information for the patient's : Young, Baby Girl [[id number]] Delivery Date and Time:04/12/2023 4:21 PM Delivery Type: Lower Segment Transverse Subjective: Complains of nothing. Pain is wellcontrolled. She is tolerating diet well, urinating and ambulating well. Review of Systems Lochia: small Last Set of Vitals: BP 113/54 (BP Location (NBP): Left arm, Patient Position: Sitting) Pulse 82 Temp 36.6 ??C (97.9??F) (Oral) Resp 16 Ht 160 cm (5' 3) Wt 99.8 kg (220 lb) SpO2 96% Unknown BMI 38.97 kg/m?? Weight: 99.8 kg (220 lb) Physical Exam Uterine Fundus: non-tender Incision: healing well Lochia: appropriate Significant Labs: Lab Results Component Value Date ABORH A Pos 04/12/2023 WBC 18.6 (H) 04/13/2023 HCT 30.2 (L) 04/13/2023 HGB 10.4 (L) 04/13/2023 Assessment & Plan 27 y.o. woman who presented as a female. was complicated by RCS Patient is doing well without problems. care: routine care S/p Bilateral salpingectomy Assessment Management of Additional Medical Issues PPH, stable hgb Discharge today Baby in ICN This patient was seen and discussed on rounds. * Analisa Duran MSW - 04/14/2023 3:36 PM EDT [facility] Social Work Note Patient: DENISE JULIAN Relevant Information: This SW met with Denise Julian in [facility]. Her partner, Carl, was present as well. Denise reported she had been over on the ICN for most of the morning, and got to hold her baby girl for about 2.5 hours. Denise and Carl's baby is in the ICN and needs CPAP. Assessment: Denise is articulate and very self-aware. She expressed that this experience of her infant needing critical care at was very traumatic, and continues to be a traumatic experience. Denise reported it is especially difficult waiting-- waiting to see how her baby girl does, waiting for the provider team to know what's going on with baby, etc. Discharge plan is still up in the air for baby, but Denise stated providers have said possibly less than 2 weeks, but nothing is certain-- very hard to sit with this uncertainty. Denise is well-supported by her partner. She reported she also has a therapist she is already established with, and plans on connecting with the therapist soon to discuss the current circumstances. She reported she attends counseling appts via telehealth. Denise reported she will be discharged tomorrow, and plans to go home. She explained she has animals and other children so she will go back to her house rather than stay at [facility] so she can tend to them. Plan: This SW will remain available to provide additional support to patient as needed/desired by patient. TITO Melo Pronouns: She/Her [employer] [email or web address] Pager: [phone] [email or web address] * Trina Bravo MD - 04/14/2023 6:20 AM EDT Delivery Note Patient ID: Denise Julian is a 27 y.o. POD #2 after repeat Delivery and bilateral salpingectomy at 36w2d for thin lower uterine segment, concern for window, with prior C/S x2, tobaccouse disorder. Delivery complicated by extensive intraabdominal adhesions and intermittent poor tone, QBL 880 mL. S: Denise is uncomfortable and emotional this morning. She is ambulating without dizziness/lightheadedness, tolerating PO without n/v, lochia is light. Urinating well and had a BM. Pumping colostrum for in ICN. Her pain continues to be a concern for her and makes it so that when she walks longer distances it makes it harder for her to breath. She took one oxycodone last night, but has beenavoiding it because it makes her sleepy and she wants to be alert in case anything happens with herbaby. O: Last value Range last 24 hrs Temperature Temp: 36.6 ??C (97.8 ??F) Temp: [36.5 ??C (97.7 ??F)-36.9 ??C (98.4 ??F)] Heart Rate Heart Rate: 90 Heart Rate: [71-96] Blood Pressure BP: (!) 103/43 BP: (97-112)/(43-63) Respiratory Rate Resp: 16 Resp: [16-19] SpO2 SpO2: 100 % SpO2: [98 %-100 %] Intake/Output Summary (Last 24 hours) at 04/14/2023 0620 Last data filed at 04/13/2023 1400 Gross per 24 hour Intake -- Output 2050 ml Net -2050 ml Exam: Gen: NAD Cardiac: RRR Pulmonary: CTAB, nl respiratory effort Abdomen: soft, ND, no rebound or guarding, fundus firm 1 cm below the umbilicus, moderately tender. Incision/Dressing: clean/dry/intact, well approximated with Dermabond over subcuticular closure, noerythema/exudate. Lidocaine patches in place above incision. Extremities: nontender, no edema. : lochia light Labs: Recent Labs 04/13/23 0515 04/12/23 1200 WBC 18.6* 10.3* HGB 10.4* 11.0* HCT 30.2* 33.0* PLATELET 137* 137* Assessment/Plan: Denise Julian is a 27 y.o. s/p CS+BS, doing well this morning. General Care Pain - increased to maximum dosing of ibuprofen and acetaminophen. Recommended trial of abdominal binder. Pt meeting appropriate post op milestones. Voiding spontaneously. Continue routine post op care. Hgb 10.4 from 11.0 preop s/p EBL 880 mL. Pt asymptomatic for acute blood loss anemia. Continue to monitor for signs or symptoms of worsening anemia. VTE prophylaxis: SCDs, ambulation Immunization needs: N/A - pumping for baby in ICN Contraception plan: s/p bilateral salpingectomy Anticipate discharge on POD#3 This patient was seen and discussed on rounds. Trina Bravo MD PGY-1 04/14/2023 * Maria Teresa Dhillon MD - 04/13/2023 11:05 AM EDT Delivery Note Patient ID: Denise Julian is a 27 y.o. POD #1 after repeat Delivery and bilateral salpingectomy at 36w2d for thin lower uterine segment, concern for window, with prior C/S x2, tobaccouse disorder. Delivery complicated by extensive intraabdominal adhesions and intermittent poor tone, QBL 880 mL. S: Denise is feeling well this morning. She is ambulating without dizziness/lightheadedness, tolerating PO without n/v, lochia is light. Her elliott was just removed (has not yet voided), no flatus or BM yet; notes she is burping. Pumping colostrum for in ICN. O: Last value Range last 24 hrs Temperature Temp: 36.5 ??C (97.7 ??F) Temp: [36.5 ??C (97.7 ??F)-36.9 ??C (98.4 ??F)] Heart Rate Heart Rate: 71 Heart Rate: [60-76] Blood Pressure BP: 104/62 BP: (81-111)/(39-76) Respiratory Rate Resp: 18 Resp: [16-18] SpO2 SpO2: 98 % SpO2: [95 %-100 %] Intake/Output Summary (Last 24 hours) at 04/13/2023 1105 Last data filed at 04/13/2023 0658 Gross per 24 hour Intake 2900 ml Output 3030 ml Net -130 ml Exam: Gen: NAD Cardiac: RRR Pulmonary: CTAB, nl respiratory effort Abdomen: soft, NT/ND, no rebound or guarding, fundus firm, mildly tender, at level of umbilicus Incision/Dressing: clean/dry/intact, well approximated with Dermabond over subcuticular closure, noerythema/exudate Extremities: nontender, no edema. : lochia light Labs: Recent Labs 04/13/23 0515 04/12/23 1200 WBC 18.6* 10.3* HGB 10.4* 11.0* HCT 30.2* 33.0* PLATELET 137* 137* Assessment/Plan: Denise Julian is a 27 y.o. s/p CS+BS, doing well this morning. General Care Pt meeting appropriate post op milestones. Anticipating void s/p elliott removal. Continue routine post op care. Hgb 10.4 from 11.0 preop s/p EBL 880 mL. Pt asymptomatic for acute blood loss anemia. Continue to monitor for signs or symptoms of worsening anemia. VTE prophylaxis: SCDs Immunization needs: N/A Contraception plan: s/p bilateral salpingectomy Anticipate discharge on POD#2-3 This patient was seen and discussed on rounds. Maria Teresa Dhillon MD, PGY4 Obstetrics and Gynecology Associated attestation - Nitza Murguia MD - 04/13/2023 7:24 PM EDT Attending note I saw patient on rounds and agree with Dr. Dhillon's note above. The patient reports feeling well. Herbleeding is diminishing, and she is voiding without difficulty. She has adequate analgesia. She is able to ambulate. She is emotionally stressed over the fact her is in the ICN. Temp: [36.5 ??C (97.7 ??F)-36.9 ??C (98.4 ??F)] Heart Rate: [69-96] Resp: [18] BP: (81-104)/(49-62) SpO2: [95 %-98 %] Heart Rate from SpO2: [68 bpm-80 bpm] Abdomen: soft, appropriately tender, fundus below umbilicus Wound/dressing: clean, dry, intact Ext: nontender, mod edema Impression: POD 1 after repeat at 36 weeks for history of uterine window doing well. Plan: Continue routine postoperative care. Nitza Murguia MD * Mary Malik RN - 04/12/2023 10:25 PM EDT PT OOB w/ stand by assist for PT comfort. Moving slowly but appropriately. PT reports little to no pain after taking 10mg of oxycodone. PT was able to visit infant in the ICN and stayed next door forfor about 2hrs. PT back to room reporting pain still minimal. PT started pumping and was able to get about 3ml of colostrum and was brought next door to the ICN. * Mary Malik RN - 04/12/2023 8:16 PM EDTSummary: PT OOB PT OOB at 1999. PT able to stand and side step to a wheel chair to go to visit her baby in the ICN.PT reporting not feeling dizzy and OK to go to ICN. documented in this encounter H&P Notes * Vicente Zhang MD - 04/12/2023 1:14 PM EDT Obstetrical Term Admission Note Denise Julian is a 27 y.o. at 36w2d gestation being admitted for scheduled repeat section. HPI: Denise is doing well this morning, expecting baby [...] while inpatient due to reaction to adhesive. Review of Systems: Negative to complete review except as noted in the HPI. Obstetric Review of Systems Total Weight Gain this : Not found. Movement: normal Contractions: none Leaking: None Bleeding: none Preeclampsia signs and symptoms: None Active Hospital Problems Diagnosis H/O section Resolved Hospital Problems No resolved problems to display. Active Non-Hospital Problems Diagnosis labor History of rupture of uterus Previous delivery affecting Past Medical History: Diagnosis Date Asthma Past Surgical History: Procedure Laterality Date SECTION SECTION OB History 4 Para 2 Term 2 AB 1 Living 2 SAB 1 IAB Ectopic Multiple Live Births 2 # Outc Date GA Lbr Ronaldo/2nd Wgt Sex Del Anes PTL Lv 1 SAB 2011 12w0d SAB 2 Term 2014 39w0d 3.09 kg (6 lb 13 oz) M C-S scar Comments: SROM, arrest 3cm 3 Term 2016 39w0d 2.523 kg (5 lb 9 oz) M C-S scar Complications: IUGR (intrauterine growth restriction) affecting care of mother 4 Current Medications Prior to Admission Medication Sig Dispense Refill Last Dose acetaminophen (Tylenol) 325 mg tablet Take 650 mg by mouth every 4 hours as needed for Pain. pantoprazole EC (Protonix) 40 mg Tablet, Delayed Release (E.C.) ferrous gluconate (Fergon) 324 mg (37.5 mg iron) Tablet Take 324 mg by mouth daily. vitamin 27 & [id number] 60 mg iron-1 mg Tablet Take 1 tablet by mouth daily. Allergies Allergen Reactions Environmental [Latex, Natural Rubber] Rash Penicillins Varicella Vaccines Hives Family History Problem Relation Age of Onset Rheumatoid Arthritis Paternal Grandmother Social History Occupational History Not on file Tobacco Use Smoking status: Every Day Packs/day: 0.50 Types: Cigarettes Smokeless tobacco: Never Tobacco comments: Cut back from 2 packs Vaping Use Vaping Use: Never used Substance and Sexual Activity Alcohol use: Not Currently Drug use: Never Sexual activity: Not on file Immunization History There is no immunization history on file for this patient. Last Set of Vitals: There were no vitals taken for this visit. Physical Exam Gen: AAO, well appearing, NAD Cardio: nl rhythm, S1, S2, no M/C/R/G Pulm: CTA BL, no W/C/R Abd: +BS, soft, NT, ND, gravid Ext: warm, well-perfused, no BRANDI or calf tenderness Neuro: grossly intact Uterine Size: S=D Clinical EFW: 6lbs Sterile Speculum: not indicated Cervix Exam: not indicated Pelvis: average Presentations: cephalic by BSUS Heart Rate Interpretation: Difficult to keep patient on for 20 full minutes at a time Baseline: 135, Variability: moderate, Accels: yes, Decels: none, [place]ir[place]: none Lab Results Component Value Date ABORH A Pos 03/18/2023 HCT 33.0 (L) 04/12/2023 HGB 11.0 (L) 04/12/2023 MCV 85.7 04/12/2023 AST 13 11/20/2022 Most Recent Growth Ultrasound Date: 02/19/2023 GA at US: 29w6d EFW: 1513g (91st %) Growth appropriate for gestational age Amniotic fluid volume normal Placenta posterior Presentation cephalic Assessment & Plan Denise Julian is a 27 y.o. at 36w2d being admitted for a scheduled repeat section with bilateral salpingectomy for permanent contraception - NST reactive - 2g Ancef, PCN allergy reported as weird dizzy reaction, patient denies any anaphylactic symptoms -- antibiotic taken in childhood and patient reports providers were unsure if it was due to penicillin antibiotic. Unable to identify pre-op antibiotics used at prior sections. Will closely monitor for any adverse reactions - Anesthesia aware - H/o asthma, no hypertension. Will avoid hemabate - PPH risk: HIGH (BMI, h/o CS). Will obtain CBC, T&S, 2IV's on admission - GBS unknown, will collect today C/S consent: Reviewed consent with the patient. Discussed risks such as maternal: bleeding, infection, need for blood transfusion, damage to nearby organs such as bladder; bowel; and ureters. Also discussed rare risks such as damage to the baby or maternal hysterectomy. Discussed benefits and altern atives. Patient had time to ask questions which were answered. Patient signed consent and it was placed in the chart. This patient was seen and discussed with Dr. Headley, Attending RESTORATIVE COORDINATOR. Vicente Zhang MD, PGY3 Obstetrics and Gynecology 04/12/2023 Associated attestation - Mary Headley MD - 04/12/2023 3:14 PM EDT I have seen the patient and reviewed Dr. Zhang's above history and I agree with the details as written. The assessment and plan were formulated in discussion with me and I agree with them as documented. The patient is a 27 y/o female at 36w2d admitted for repeat section due to thin XI being noted at the time of her last c/s and on US this and concern for uterine rupture with any labor or continued contractions. She has rec'ed BMZ for lung maturity. She has been counseled on delivery options. She is also requesting bilateral salpingectomy at the time of her c/s; reaffirms that she is 100% sure that she wants permanent sterilization. Mary Headley MD documented in this encounter Miscellaneous Notes * Note - Analisa Shepard RN - 04/15/2023 9:00 AM EDT This note was copied from a baby's chart. Met with Denise who said that her milk is definitely coming in more. She did sleep through a pumping session last night but when she got up this morning she was able to obtain 115ml. Reviewed engorgement management, limited heat, followed by milk removal followed by ice and ibuprofen to decrease inflammation and swelling. Denise is very happy with the support she is getting for pumping and is excited that Annia's CPAP was weaned slightly. Analisa Shepard RN, IBCLC [facility] * Plan of Care - Cathy Sebastian RN - 04/14/2023 5:31 PM EDT OUTCOME EVALUATION NOTE: OUTCOME SUMMARY: PP care provided. Meeting PP goals. Pain managed with scheduled and PRN medications. Abdominal binder provided. Visiting with who remains in ICN, pumping independently. Significant other supportive at bedside. PLAN MOVING FORWARD: Routine PP care. Discharge planning. INDIVIDUALIZED FALL PREVENTION INTERVENTIONS: Patient-specific fall risk factors per assessment: [current deficits]: IV Saline Locked Assistance [level of assistance required for transfers and ambulation]: Independent Supervision [direct monitoring required during toileting and ADLs]: Independent Surveillance [continuous indirect monitoring]: Purposeful rounding and call cárdenas within reach. Patient-specific fall prevention interventions for sensory deficits provided, if applicable: [X] No CARE PLAN GOAL OUTCOME EVALUATION: * Note - Analisa Shepard RN - 04/14/2023 2:45 PM EDT This note was copied from a baby's chart. ASSESSMENT INPATIENT Encounter Date/Time: 04/14/231444 Baby's name: Rajesh Julian : 04/12/2024 Time of : 4:21 PM Mode of Delivery: Lower Segment Transverse Gestational Age: Gestational Age: 36w2d Baby age: 3 days Birthweight: 6 lb 5.9 oz (2890 g) Weights since : Patient Vitals for the past 168 hrs: Weight 04/15/23 0200 2.77 kg (6 lb 1.7 oz) 04/14/23 0320 2.86 kg (6 lb 4.9 oz) 04/12/23 1714 2.89 kg (6 lb 5.9 oz) 04/12/23 1621 2.89 kg (6 lb 5.9 oz) Overall weight loss: -4% MATERNAL INFO: Denise Julian [id number] 1995 G 4 P 3 Significant History: Previous experience: None--did not breastfeed previous children First baby she did not have the support, second baby would not latch, she pumped and combination fed. She had blood in her milk and was advised not to give that to the baby Breast Surgery: No Breast Changes During : Yes milk did come in with previous babies Breast Exam : not assessed at this time Milk Production: Colostral Phase Normal got 25 ml at this morning's pump session. Struggling to pump 8 times a day Filling per mom Nipple Exam : deferred, was sized to 24mm flanges by previous IBCLC. Mom denies areolar pain or stretch into flange Trauma: denies pain or trauma Nipple Care Management: Appropriate pump suction, nipple should relax to resting position, not stayextended OBSERVATION: ASSESSMENT: on CPAP, mom did STS this am Oral Motor Examination/Function: Mouth: Normal Jaw: Normal Lips: Normal PATIENT EDUCATION AND RECOMMENDATIONS: Pump at least 8-10 times per 24 hours and record in pumping log provided Breast massage and hand expression before and during pumping Brief heat prior to pumping and ice packs after pumping X 48 hours [place] oil to nipples prior to pumping Frequent and prolonged maternal- skin to skin contact Close support and follow up Pamphlets Provided Colostrum swabbing Breast Massage and Hand Expression Providing Breastmilk for your in the Intensive Care Nursery On-going Concerns: Inexperienced BF mom Delayed adequate feeding, ICN admission, need for respiratory support Late Monitor growth and nutrition closely 15 minutes were spent with this family, providing assessment, assistance, education, and support. Mother voices understanding of education and recommendations. Analisa Shepard RN, IBCLC [facility] * Note - Jannette Lorenz RN - 04/13/2023 6:01 PM EDT This note was copied from a baby's chart. I was able to meet with this family to discuss suggested pumping guidelines. Mom reports her breastdo not feel different at this point, but she did have breast changes during her . Mother is pumping every 3 and able to obtain 1-3 ml per pumping session on day 1 . She denies painwith pumping. She is double pumping and using a hospital grade pump. She has rented one via the [employer] wall[employer] center. She is sized to a 24 mm flange. We discussed pumping techniques. RECOMMENDATIONS: Breast massage and hand expression before and during pumping [place] oil to nipples prior to pumping Pump at least 8-10 times per 24 hours and record in pumping log provided Frequent and prolonged maternal-infant skin to skin contact when possible Encouraged mother to let nurse know if pain with pumping develops Close support and follow up * Plan of Care - Cathy Sebastian RN - 04/13/2023 4:53 PM EDT OUTCOME EVALUATION NOTE: OUTCOME SUMMARY: PP care provided. Pt is meeting PP goals. Elliott removed and voiding w/o complaints. Pain managed with scheduled and PRN medications. Pumping for who remains in ICN for respiratory support. Significant other supportive at bedside. PLAN MOVING FORWARD: Routine PP care. Promote bonding with in ICN. INDIVIDUALIZED FALL PREVENTION INTERVENTIONS: Patient-specific fall risk factors per assessment: [current deficits]: IV saline locked. Assistance [level of assistance required for transfers and ambulation]: Independent Supervision [direct monitoring required during toileting and ADLs]: Independent Surveillance [continuous indirect monitoring]: Purposeful rounding. Call cárdenas in reach. Patient-specific fall prevention interventions for sensory deficits provided, if applicable: [X] N/A CARE PLAN GOAL OUTCOME EVALUATION: * Initial Assessments - Charlotte Chatterjee RN - 04/13/2023 2:57 PM EDT Office of Care Management Betzy / Jennifer Ramírez Initial Assessment This filing writer introduced self and reviewed role; services were accepted. Patient Name: Denise Julian Child's Legal Name (if applicable): Annia BowserMarilynLatisha Opalsharon Source of Information: Chart Review and patient interview Initial Assessment for: Mother / Infant Couplet Was Conifer contacted to update information? No Home Address confirmed as: [address] [place] [phone] Verified Phone Numbers confirmed as: Extended Emergency Contact Information Primary Emergency Contact: Carl Prakash Address: [address] [place] [id number] [place] [address] [place] Relation: Clotilde Primary Care Provider listed as: BRIDGETT Turner /Child PCP, if different: Will be Dr. Lloyd Chamberlain, [facility] Reason for Hospitalization: Patient Active Problem List Diagnosis Code Previous delivery affecting O34.219 History of rupture of uterus Z87.828 labor O60.00 H/O section Z98.891 Readmission Within the Last 30 Days: no previous admission in last 30 days Advance Care Planning / Code Status: Attempt Cardiopulmonary Resuscitation - Inpatient Patient / Family Interested in Advanced Directives: not discussed Anticipated Length of Stay: 2-3 days post c/s delivery, 's discharge date is not yet known Current clinical status: 27 y.o. at 36w2d gestation being admitted for scheduled repeat section. Patient / Caregiver concerns / needs to be addressed during this admission: denies Functional Status Functional Status Prior to Admission: Functional Status Currently: from caesarian delivery Housing Home Environment: safe, stable Housing Status: heat, running water, electricity Patient currently lives with: significant other and room mate, older children with grandparents in [place]. Housing for family / support system while patient admitted to [facility] / [facility]: [facility], Information regarding [facility] given Nutrition Food: Secure Current Nutrition of Patient: PO - regular diet Breast pump needs: Hospital grade breast pump rental provided (Given rental pump number [id number], approved by Brianna holliday [facility]) Social and Community Resources: Patient is not employed. Her partner, Carl Prakash, is employed PTas a driver salesman for [employer]). Transportation Baseline Transportation: Personal Vehicle Transportation at Discharge: Personal Vehicle - Family / Friend to drive Current Patient / Caregiver Coping: coping okay, teary at times Child Life Consult Needed for Other Children in the Home / Family: declined [employer] Consult Needed: possibly Health Coverage confirmed as: [place] Pay[place] / Plan[place] / Product Type: *No Product type* / N/A Infant patient to be added to above insurance plan: Yes Prescription Coverage: Yes Preferred Pharmacy: [phone] - [address] [address] Anticipated Barriers to Discharge / Special Considerations: no Plan: Patient to discharge to [facility] when medically stable. Follow up with OB team. Infant to discharge home with PCP and VNA follow up. process analyst / [employer] SAL[employer] remain available as needed for coordination of care, psychosocial support anddischarge planning. * Note - Jannette Lorenz RN - 04/13/2023 2:29 PM EDT This note was copied from a baby's chart. I touched base with patient's mother's bedside RN. She has been set up with a pump and plans to pump to help drive in her milk supply. She has received a hospital grade pump. is available to support as needed and when appropriate. * L&D Delivery Note - Maria Teresa Dhillon MD - 04/12/2023 6:00 PM EDT Patient name: Denise Julian Date of : 1995 Date of visit: 04/13/2023 Section Delivery Note Denise Julian is a 27 y.o. at 36w2d [...] Cord gases were obtained. QBL 880 mL Please see op note for further details. Dr. Headley, attending E Commerce Architect, present for entire delivery without conflicting clinical responsibilities. Maria Teresa Dhillon MD, PGY4 Obstetrics and Gynecology Information for the patient's : Eliel, Baby Girl [[id number]] DELIVERY SUMMARY FOR Baby Girl Eliel (please note there is a separate summary for each fetus) 04/12/2023 4:21 PM by Lower Segment Transverse Sex: female Gestational Age: 36w2d Labor Events labor?: No GBS colonized: unknown steroids: Full Course Rupture date/time: 04/12/2023 1621 Rupture type: artificial rupture of membranes Fluid color: clear Labor onset type: section without labor Augmentation: None Mother Delivery Episiotomy: None Perineal lacerations: None Surgical or additional est. blood loss (mL): 880 Combined est. blood loss (mL): 880 Repair suture: None OB OR Quantitative Blood Loss Totals 04/12/23 1545 - 04/13/23 1638 OB OR Procedure QBL Anesthesia 880 mL Total 880 Delivery () Delivery Date: 04/12/23 Delivery Time: 4:21:00 PM Sex: Female Presentation: Vertex Attempted ?: No Delivery Type: Classification: scheduled Delivery Type (Specific): Lower Segment Transverse Shoulder Dystocia Shoulder dystocia present?: No Delivery Information Delivery Location: OR Delivering Clinician: Vicente Zhang MD ICN Staff Present: Yes Other Personnel: Provider Role Chandrika Elmore, vocational rehabilitation consultant Nurse Mary Headley MD Nurse Rn Bsn Tami Victor, vocational rehabilitation consultant Assist Maria Teresa Dhillon MD Resident Navya Martinez, [facility] Anesthesia Method: Combined Spinal/Epidural Cord Vessels: 3 Vessels Complications: None Gases Sent?: Yes Cord Insertion: eccentric Assessment & APGARS Living status: Living Apgars 1 Minute: 5 Minute: 10 Minute 15 Minute 20 Minute Skin Color: 0 1 Heart Rate: 2 2 Reflex Irritability: 1 1 Muscle Tone: 1 1 Respiratory Effort: 1 1 Total: 5 6 Apgars Assigned By: LUNA YUN Resuscitation Method: PPV Resuscitation Comment: Received pt in OR s/p requiring PPV intermittently for ~30 minutes. Transferred to [facility] and placed on Bubble CPAP adjusting to CPAP of 7, 25-35% FiO2. (per respiratorynote) Maternal Feeding and Skin to Skin Maternal Choice for [place](s) Feeding on Admission: Reason skin to skin not initiated: [place] Acuity Medications [place] Medications Given: vitamin K, erythromycin Measurements Weight: 2890 g Length: 0.48 m Head circumference: 0.342 m Placenta Date and Time: 04/12/2023 4:23:00 PM Removal: Expressed Appearance: Intact Labor Length 3rd stage: 0h 02m Associated attestation - Mary Headley MD - 04/14/2023 11:10 AM EDT I was present and supervising during the section procedure. I agree with the description of the procedure as outlined. Prior x 2 with history of suspicion for occult uterine scar separation noted at time of last and thin XI noted on US this with concern for uterine rupture with labor Mary Headley MD * Brief Op Note - Mary Headley MD - 04/12/2023 5:17 PM EDT Brief Operative Note Patient Name: Denise Julian : [id number] MR#: [id number] Case Date: 04/12/2023 Surgeon: Surgeon(s) and Role: * Mary Headley MD - Primary * Maria Teresa Dhillon MD - Resident - Assisting * Vicente Zhang MD - Resident - Assisting * [facility], PROCEDURES Preoperative diagnosis: 1) 36w2d IUP 2) Prior x 2 with history of suspicion for occult uterine scar separation noted at time of last and thin XI noted on US this with concern for uterine rupture with labor 3) undesired future fertility Postoperative diagnosis: same Procedure(s) (LRB): Repeat low segment transverse section Bilateral salpingectomy Anesthesia: CSE CSE Findings: viable female in cephalic presentation with copious clear amniotic fluid. APGARS and weight: awaiting ICN input. Normal uterus, tubes and ovaries. Dense adhesion between the bladder and the uterine serosa, approximately 3 cm band of tissue adherent to the bladder from the mid uterus. Dense adhesions of the omentum to the anterior abd wall on the left side. Normal placenta w/ eccentric cord insertion and 3 v cord. Complications: none Estimated Blood Loss: * No values recorded between 04/12/2023 3:45 PM and 04/12/2023 4:55 PM * OB OR Quantitative Blood Loss Totals 04/12/23 1545 - 04/12/23 1718 OB OR Procedure QBL Anesthesia 880 mL Total 880 Specimens removed during surgery: bilateral fallopian tubes Fluids: Intraprocedure Crystalloid Total 3L PRBCs: none (See Anesthesia Record/Report for Other Blood Products) Urine Output: (no urine output recorded) Drains: elliott catheter Disposition: regional anesthesia administered without incident Condition: doing well without problems (Please see the Surgical Encounter Summary for any Implant and Specimen details pertinent to this patient.) Surgical Infection Prevention Bundle Used? Yes Obstetric Infection Bundle: Case Acuity: scheduled Chlorhexidine shower night before surgery?: (not recorded) Chlorhexidine shower morning of surgery on BP?: (not recorded) 2 % Chlorhexadine-alcohol skin prep: Yes Vaginal prep povidone -iodine scrub: Yes Pre op IV antibiotics: Ancef Preop antibiotics given between 15-60 minutes prior to incision? Yes Evidence of chorioamnionitis: No Intra-op antibiotic re-dose (for surgery length >3 hours or EBL >1500cc): N/A Closure of subcutaneous tissue > 2 cm: Yes Subcuticular skin closure: Yes * Op Note - Maria Teresa Dhillon MD - 04/12/2023 3:45 PM EDT [facility] [place] Patient Name: Denise Julian : [id number] MR#: [id number] Case Date: 04/12/2023 Surgeon: Surgeon(s) and Role: * Mary Headley MD - Primary * Maria Teresa Dhillon MD - Resident - Assisting * Vicente Zhang MD - Resident - Assisting * [facility], PROCEDURES Preoperative diagnosis: 1) 36w2d IUP 2) Prior x 2 with history of suspicion for occult uterine scar separation noted at time of last and thin XI noted on US this with concern for uterine rupture with labor 3) undesired future fertility Postoperative diagnosis: same, thin lower uterine segment, extensive intraabdominal adhesions, delivered Procedure(s) (LRB): @ DELIVERY (WRVU 16.13) (Bilateral) @FALLOPIAN TUBE(S), TRANSECTION OR LIGATION, ABD APPROACH, POST- (WRVU 5.28) (N/A) Repeat low segment transverse section Bilateral salpingectomy Findings: Dense intraabdominal adhesions. Scarring of peritoneum to uterus, dense adhesions betweenbladder, omentum, peritoneum, and fascia. Liveborn female , vigorous, APGARs 5 and 6, weight 2890g. Lower uterine segment was thin but no window or separation was noted. Copious clear amniotic fluid noted. Anesthesia: CSE Estimated Blood Loss: OB OR Quantitative Blood Loss Totals 04/12/23 1545 - 04/12/23 1803 OB OR Procedure QBL Anesthesia 880 mL Total 880 Specimens removed during surgery: placenta Drains: Elliott Surgical Closure: Primary Closure - skin incision is completely closed without any wires, shekhar, drains or other devices Disposition: regional anesthesia administered without incident Condition: doing well without problems (Please see the Surgical Encounter Summary for any Implant and Specimen details pertinent to this patient.) HPI/Surgical Indications: Denise Julian is a 27 y.o. at 36w2d admitted for scheduled pretermrepeat section with bilateral salpingectomy in setting of thin lower uterine segment notedon US (1.2mm at thinnest point). delivery planned after course of steroids for suspicion for occult uterine scar separation noted at time of last and thin XI noted on US this with concern for uterine rupture with labor. Her was otherwise complicated by prior C/S x2, tobacco use disorder. Consents had previously been reviewed with patient, signed, and scanned into chart. On day of surgery, patient reaffirmed desire for permanent sterilization. Surgical Infection Prevention Bundle Used? N/A Procedure Description: The patient was taken to the Operating Room with IV fluids running and pneumatic compression stockings in place and functioning. Combined spinal/epidiral anesthesia was administered and found to be adequate. The patient was given 2 gm of Ancef. The patient was placed in the dorsal supine position with a leftward tilt. Elliott catheter was placed into the bladder and drained to gravity. The patient was then prepped and draped in the usual sterile fashion. A surgical timeout was performed with all parties in agreement to proceed. After anesthesia was confirmed adequate, a Pfannenstiel skin incision was made with a scalpel and carried through to the underlying layer of fascia with blunt dissection. The fascia was nicked in themidline and the incision was extended laterally with the curved Isbell scissors. The superior aspect of the fascial incision was then grasped with Milvia clamps and elevated. There was significant adhesive disease which required sharp, blunt, and bovie electrocautery to separate the rectus from the superior aspect of the fascial incision. Attention was then turned to the inferior aspect of the fascial incision, which in a similar fashion was grasped with Milvia clamps and elevated. There were dense adhesions between fascia, peritoneum, omentum, and bladder which was sharply, with bovie electrocautery, with Ligasure, and bluntly. A band of thick peritoneal scarring to the uterus was with Ligasure. The rectus muscles were then in the midline sharply, and the peritoneum was elevated with an Dea clamp and entered using Metzenbaum scissors. The peritoneal incision was extended with lateral traction, as well as via sharp dissection and bovie electrocautery dissection. The bladder blade placed to protect and retract the bladder. The loweruterine segment was noted to be thin, but no separation or window noted. It was then incised in a transverse fashion with a scalpel. The hysterotomy was extended with cephalocaudad traction. A hand was inserted into the uterus and the bladder blade removed. After the head was brought to the hysterotomy, fundal pressure was applied to facilitate delivery of . The head and shoulders delivered easily. A live born female infant was delivered. After a delay, he cord was doubly clamped and cut. The infant was handed off to the waiting pediatricians, who assigned Apgars of 5 and 6. Cord gases wer sent. Oxytocin was initiated to facilitate uterine contractions. The placenta was expressed and the uterus was exteriorized. The uterus was then cleared of all clots and debris. The uterine incision was repaired with 0 vicryl in a continuous locked fashion. There was no imbricating layer, however several [id number] were placed over the hysterotomy after which excellent hemostasis was appreciated. There was oozing at the area where the adhesion was from the anterior uterus which was also repaired in a running locked fashion with the same suture. Due to poor tone, the patient received methergine, buccal misoprostol, and TXA x2. Examination ofthe pelvis revealed normal uterus, tubes and ovaries. The uterus was returned to the abdomen. The uterus was rotated so that first the right tube was visible. This was elevated with Catherine clamps and using the LigaSure, starting from the fimbriated end, and along the mesosalpinx and ultimately freed from the cornual end with the LigaSure. This was repeated with the left tube, and both tubes were sent for permanent pathology review. Inspection of the uterine incision revealed ongoing hemostasis. The gutters were cleared of all clots. The hysterotomy was checked again and found to be hemostatic. The fascia was reapproximated with 0-vicryl in a running fashion. The subcutaneous space was well irrigated. The subcutaneous space was loosely reapproximated with 2-0 plain gut suture. The skin was closed with 4-0 monocryl in a subcuticular closure. Dermabond was applied over the incision. The uterus was expressed. The patient and tolerated the procedure well and were in satisfactory condition at its conclusion. Lap and needle counts were correct times two at case close. The patient wastaken back to her room in stable condition. Prophylactic antibiotics: 2g ancef given intra-op DVT Prophylaxis: SCDs Dr. Headley was present for and participated in the entire procedure without any conflicting clinical responsibilities. Maria Teresa Dhillon MD, PGY4 Obstetrics and Gynecology Associated attestation - Mary Headley MD - 04/14/2023 11:17 AM EDT Attestation: Case Date: 04/12/2023 I was present and I participated during the entire procedure (does not need to include opening and closing). Mary Headley MD 04/14/2023 documented in this encounter Plan of Treatment Not on file documented as of this encounter Procedures Procedure Name Priority Date/Time Associated Diagnosis Comments SYPHILIS ANTIBODY SCREEN WITH REFLEX Routine 04/13/2023 3:10 PM EDT HEMOGRAM Routine 04/13/2023 5:15 AM EDT DIFFERENTIAL, AUTOMATED Routine 04/13/2023 5:15 AM EDT CBC (WITH DIFF) Routine 04/13/2023 5:15 AM EDT POCT GLUCOSE Routine 04/12/2023 11:35 PM EDT SPECIMEN TO PATHOLOGY Routine 04/12/2023 5:53 PM EDT SPECIMEN TO PATHOLOGY Routine 04/12/2023 5:53 PM EDT SURGICAL PATHOLOGY REPORT Routine 04/12/2023 5:52 PM EDT FALLOPIAN TUBE(S)\LIGATION\TRANS ECTION\ POST-\ABD\SENIOR ENGINEERING SPECIALIST Routine 04/12/2023 3:27 PM EDT Dehiscence of old uterine scar with extension before onset of labor, delivered Ligate Fallopian Tube, ([id number]) 04/12/2023 3:02 PM EDT Dehiscence of old uterine scar with extension before onset of labor, delivered Delivery Only ([id number]) 04/12/2023 3:02 PM EDT Dehiscence of old uterine scar with extension before onset of labor, delivered DELIVERY Routine 04/12/2023 2:1 6 PM EDT Dehiscence of old uterine scar with extension before onset of labor, delivered GROUP B STREPTOCOCCUS SCREEN Routine 04/12/2023 2:06 PM EDT GROUP B STREP CULTURE SCREEN Routine 04/12/2023 2:06 PM EDT TYPE AND SCREEN VALIDITY STAT 04/12/2023 12:00 PM EDT ABORH RECHECK STATUS STAT 04/12/2023 12:00 PM EDT HEMOGRAM STAT 04/12/2023 12:00 PM EDT DIFFERENTIAL, AUTOMATED STAT 04/12/2023 12:00 PM EDT ABO/RH TYPING STAT 04/12/2023 12:00 PM EDT CBC (WITH DIFF) STAT 04/12/2023 12:00 PM EDT ANTIBODY SCREEN STAT 04/12/2023 12:00 PM EDT TYPE AND SCREEN ([facility]/SHANTEL) STAT 04/12/2023 12:00 PM EDT documented in this encounter Results * Syphilis Screening Antibody with reflex RPR (04/13/2023 3:10 PM EDT) Syphilis IgG/IgM Negative Negative [facility] Blood 04/13/2023 3:10 PM EDT 04/13/2023 3:36 PM EDT Narrative Resulting Agency Comment Spec In Lab Mary Headley MD CHEMISTRY ORDERABLE S Performing Organization Address City/[facility] Co de Phone Number [facility] [place] [address] * (ABNORMAL) Differential, Automated (04/13/2023 5:15 AM EDT) Neutrophil % 84.2 % [facility] Neutrophil Absolute 15.69(H) 1.70 - 6.10 x10(3)/mc L [facility] Lymph % 7.7 % [facility] Lymphocytes Abs 1.4 0.9 - 3.2 x10(3)/mc L [facility] Monocyte % 7.1 % [facility] Monocyte Abs 1.3(H) 0.3 - 0.9 x10(3)/mc L [facility] Eos % 0.0 % [facility] Eosinophils Abs 0.0 0.0 - 0.4 x10(3)/mc L [facility] Basophil % 0.2 % [facility] Baso Absolute 0.0 0.0 - 0.1 x10(3)/mc L [facility] Immature Gran % 0.80 % [facility] Comment: Immature granulocytes(IG's)percentage and absolute count will include metamyelocytes, myelocytes, and promyelocytes. Blood smears from CBCs yielding IG's will be scanned manually for concordance. If this scan disagrees with the automated IG or if promyelocytes are noted, a manual differential will be performed. Immature Gran Absolute 0.14(H) 0.00 - 0.04 x10(3)/mc L [facility] Blood 04/13/2023 5:15 AM EDT 04/13/2023 5:23 AM EDT Narrative Resulting Agency Comment Spec In Lab Jocelin Mariscal MD HEMATOLOGY ORDERABLE S [facility] [place] [address] * (ABNORMAL) Hemogram (04/13/2023 5:15 AM EDT) White Blood Cell 18.6(H) 4.0 - 9.5 x10(3)/mc L [facility] Red Blood Cell 3.55(L) 4.00 - 5.21 x10(6)/mc L [facility] Hemoglobin 10.4(L) 11.7 - 15.5 g/dL [facility] Hematocrit 30.2(L) 35.7 - 45.8 % [facility] Mean Cell Volume 85.1 82.6 - 94.4 fL [facility] Mean Cell Hemoglobin 29.3 27.1 - 32.0 pg [facility] Mean Cell Hemoglobin Concentration 34.4 31.7 - 35.0 g/dL [facility] Platelet 137(L) 145 - 357 x10(3)/mc L [facility] RDW Standard Deviation 41.2 37.0 - 46.0 fL [facility] RDW coefficient of variation 13.2 11.5 - 14.1 % [facility] Mean Platelet Volume 13.2(H) 7.6 - 12.9 fL [facility] NRBC% auto 0.0 % [facility] NRBC Absolute 0.000 0.000 - 0.000 x10(3)/mc L [facility] Blood 04/13/2023 5:15 AM EDT 04/13/2023 5:23 AM EDT Narrative Resulting Agency Comment Spec In Lab Jocelin Mariscal MD HEMATOLOGY ORDERABLE S Performing Organization Address City/[facility]/ZIP Co de Phone Number [facility] [place] [address] * POCT Glucose (04/12/2023 11:35 PM EDT) Glucose, POC 129 65 - 199 mg/dL [facility] Comment: Supplemental ranges: <140 mg/dL before meals <180 mg/dL all other times of the day Blood 04/12/2023 11:3 5 PM EDT 04/12/2023 11:35 PM EDT Mary Headley MD POINT OF CARE TEST ORDERABLES Performing Organization Address [facility] Co de Phone Number [facility] [place] [address] * Specimen to Pathology (04/12/2023 5:53 PM EDT) AP Specimen 04/12/2023 5:53 PM EDT 04/12/2023 5:53 PM EDT Narrative [facility] - 04/12/2023 5:53 PM EDT Specimen requisition ordered. ??Separate Pathology report to follow Mary Headley MD PATHOLOGY/CYTOLOGY ORDERABLES Performing Organization Address [facility] Co de Phone Number [facility] [place] [address] * Specimen to Pathology (04/12/2023 5:53 PM EDT) AP Specimen 04/12/2023 5:53 PM EDT 04/12/2023 5:53 PM EDT Narrative [facility] - 04/12/2023 5:53 PM EDT Specimen requisition ordered. ??Separate Pathology report to follow Mary Headley MD PATHOLOGY/CYTOLOGY ORDERABLES Performing Organization Address City/[facility]/ZIP Co de Phone Number [facility] [place] [address] * Surgical Pathology Report (04/12/2023 5:52 PM EDT) Final Diagnosis [id number] ? Location: ; 05; A The signing pathologist has (i) examined the relevant preparation(s) for the specimen(s) and (ii) rendered or confirmed the diagnosis(es). . ?Surgical Pathology DIAGNOSIS A - Pre-term placenta, 511 grams: ?Membranes with microscopic pseudocysts in the chorion laeve, and remote ?and ongoing subchorionic hemorrhage. ?No significant maternal or acute inflammatory response. ?Third trimester villous maturation; no significant focal parenchymal ?lesion. ?Complete maternal decidual surface. ?Three vessel umbilical cord, otherwise unremarkable. B - Bilateral Fallopian tube resection: ?Transected Fallopian tubes with benign usual and cystic developmental ?remnants, lymph-vascular congestion, and focal subserosal ?pseudo-decidual ized stromal focus versus ectopic decidualized ?endometrium. Electronically signed by: ?Shantal MENESES, Carl Obrien Verified: ??04/19/2023 10:37 ??Pathologist Performed at: ??-[facility] [place], [place] [address] Getterer: Mahendra Turcios MD, FCAP, ??CLIA Certificate: [id number] SPECIMEN(S) SUBMITTED A - Placenta B - Bilateral Fallopian tube CLINICAL INFORMATION PROVIDED: , scheduled rCS with BS, thin uterine lower segment per TVUS. SPECIMEN PROCESSING A - Labeled/Fixative: ?? Placenta, fresh. Quantity/Size/Cristian ght: Single, 19 x 17.5 x 2.5 cm, 511 g. Integrity: Intact. Shape: Discoid. Membranes: ? - Insertion: 100% marginal. ? - Color and Clarity: Hector-pink and translucent. Cord: ? - Size: 39 x 1.4 cm. ? - Number of Vessels: Three. ? - Insertion site: Paracentral. Surface: ? - Color and Clarity: Hong-blue and translucent. Maternal Surface: Focally torn but appears complete with well formed cotyledons. Parenchyma: Boggy, purple-red. Sections/Processi ng: Risk Control Analyst sections in 8 cassettes as follows: ?A1: ??Membrane roll ?A2: ??Proximal and distal cord ?A3-A8: ??Full thickness parenchyma, bisected B - Labeled/Fixative: ?? Bilateral fallopian tubes , formalin. Tissue Description: Intact, bilateral salpingectomy. . SPECIMEN PROCESSING Fallopian Tube 1: 12.0 x 0.9 cm, fimbriated. Fallopian Tube 2: 9.8 x 0.9 cm, fimbriated. Sections/Processi ng: Risk Control Analyst sections in 4 cassettes as follows: ?B1: ??Fallopian tube 1 fimbria ?B2: ??Fallopian tube 1 cross sections ?B3: ??Fallopian tube 2 fimbria ?B4: ??Fallopian tube 2 cross sections ??ajw 04/19/2023 10:37 AM EDT [facility] TISSUE SPECIMEN FROM PLACENTA / Unknown 04/12/2023 5:52 PM EDT 04/12/2023 5:52 PM EDT False Vocal Cords, Bilateral 04/12/2023 5:52 PM EDT 04/12/2023 5:52 PM EDT Vicente Zhang MD PATHOLOGY/CYTOLOGY O RDERABLES [facility] [place] [address] [facility] [place] [place] [address] * Group B Streptococcus Screen (04/12/2023 2:06 PM EDT) GBS Screen Neg [facility] Vaginal/Rectal 04/12/2023 2: 06 PM EDT 04/12/2023 3:32 PM EDT Comment:Penicillin Allergy?- >Yes Narrative Resulting Agency Comment Spec In Lab Vicente Zhang MD MICROBIOLOGY - GENER AL ORDERABLES [facility] [place] [address] * Group B Strep Culture Screen (04/12/2023 2:06 PM EDT) Group B Streptococcus Culture No Group B Streptococci isolated [facility] Vaginal/Rectal 04/12/2023 2: 06 PM EDT 04/12/2023 3:32 PM EDT Comment:Penicillin Allergy?- >Yes Narrative Resulting Agency Comment Spec In Lab Mary Headley MD MICROBIOLOGY - GENE RAL ORDERABLES Performing Organization Address City/[facility]/ZIP Co de Phone Number [facility] [place] [address] * Type and Screen Validity (04/12/2023 12:00 PM EDT) T&S only valid at [facility] Comment:This Type and Screen result is only valid at the [facility] Blood 04/12/2023 12:0 0 PM EDT 04/12/2023 12:15 PM EDT Narrative Resulting Agency Comment Spec In Lab Vicente Zhang MD BLOOD BANK LAB ORDER SHABNAM Performing Organization Address City/[facility]/ZIP Co de Phone Number [facility] [place] [address] * ABORH Recheck Status (04/12/2023 12:00 PM EDT) ABORH Type Recheck Completed [facility] Blood 04/12/2023 12:0 0 PM EDT 04/12/2023 12:15 PM EDT Narrative Resulting Agency Comment Spec In Lab Vicente Zhang MD BLOOD BANK LAB ORDER SHABNAM Performing Organization Address City/[facility]/ZIP Co de Phone Number [facility] [place] [address] * (ABNORMAL) Differential, Automated (04/12/2023 12:00 PM EDT) Neutrophil % 72.7 % [facility] Neutrophil Absolute 7.47(H) 1.70 - 6.10 x10(3)/ L [facility] Lymph % 19.0 % [facility] Lymphocytes Abs 2.0 0.9 - 3.2 x10(3)/ L [facility] Monocyte % 6.3 % [facility] Monocyte Abs 0.6 0.3 - 0.9 x10(3)/[facility] Eos % 0.5 % [facility] Eosinophils Abs 0.0 0.0 - 0.4 x10(3)/[facility] Basophil % 0.4 % [facility] Baso Absolute 0.0 0.0 - 0.1 x10(3)/[facility] Immature Gran % 1.10 % [facility] Comment: Immature granulocytes(IG's)percentage and absolute count will include metamyelocytes, myelocytes, and promyelocytes. Blood smears from CBCs yielding IG's will be scanned manually for concordance. If this scan disagrees with the automated IG or if promyelocytes are noted, a manual differential will be performed. Immature Gran Absolute 0.11(H) 0.00 - 0.04 x10(3)/ L [facility] Blood 04/12/2023 12:0 0 PM EDT 04/12/2023 12:17 PM EDT Narrative Resulting Agency Comment Spec In Lab Vicente Zhang MD HEMATOLOGY ORDERABLE S [facility] [place] [address] * (ABNORMAL) Hemogram (04/12/2023 12:00 PM EDT) White Blood Cell 10.3(H) 4.0 - 9.5 x10(3)/ L [facility] Red Blood Cell 3.85(L) 4.00 - 5.21 x10(6)/[facility] Hemoglobin 11.0(L) 11.7 - 15.5 g/dL [facility] Hematocrit 33.0(L) 35.7 - 45.8 % [facility] Mean Cell Volume 85.7 82.6 - 94.4 fL [facility] Mean Cell Hemoglobin 28.6 27.1 - 32.0 pg [facility] Mean Cell Hemoglobin Concentration 33.3 31.7 - 35.0 g/dL [facility] Platelet 137(L) 145 - 357 x10(3)/mc L [facility] RDW Standard Deviation 42.0 37.0 - 46.0 fL [facility] RDW coefficient of variation 13.6 11.5 - 14.1 % [facility] Mean Platelet Volume 12.7 7.6 - 12.9 fL [facility] NRBC% auto 0.0 % [facility] NRBC Absolute 0.000 0.000 - 0.000 x10(3)/mc L [facility] Blood 04/12/2023 12:0 0 PM EDT 04/12/2023 12:17 PM EDT Narrative Resulting Agency Comment Spec In Lab Vicente Zhang MD HEMATOLOGY ORDERABLE S [facility] [place] [address] * Antibody screen (04/12/2023 12:00 PM EDT) Ab Screen Interp Negative [facility] Expires at 2359 on: 04/15/2023 [facility] Blood 04/12/2023 12:0 0 PM EDT 04/12/2023 12:15 PM EDT Narrative Resulting Agency Comment Spec In Lab Vicente Zhang MD BLOOD BANK LAB ORDER SHABNAM [facility] [place] [address] * ABO/Rh Typing (04/12/2023 12:00 PM EDT) ABORH Type A Pos [facility] Blood 04/12/2023 12:0 0 PM EDT 04/12/2023 12:15 PM EDT Narrative Resulting Agency Comment Spec In Lab Vicente Zhang MD BLOOD BANK LAB ORDER SHABNAM [facility] [place] [address] documented in this encounter Visit Diagnoses Diagnosis Dehiscence of old uterine scar with extension before onset of labor, delivered H/O section Other postprocedural status H/O section Other postprocedural status documented in this encounter Admitting Diagnoses Diagnosis H/O section Other postprocedural status documented in this encounter Administered Medications Inactive Administered Medications - up to 3 most recent administrations Medication Order MAR Action Action Date Dose Rate Site acetaminophen (Tylenol) tablet 650 mg 650 mg, Oral, EVERY 6 HOURS PRN, Starting on Wed04/12/23 at 1753, Until Wed04/14/23 at 0739, Pain, Maximum dose of acetaminophen is 4,000 mg from all sources in 24 hours. Both acetaminophen and ibuprofen, if ordered, should be given even when other ordered pain medications are indicated., Routine Given 04/14/2023 4:02 AM EDT 650 mg Given 04/13/2023 5:36 PM EDT 650 mg Given 04/13/2023 10:47 AM EDT 650 mg acetaminophen (Tylenol) tablet 975 mg 975 mg, Oral, EVERY 6 HOURS PRN, Starting on Wed04/14/23 at 0739, Until Wed04/15/23 at 1816, Pain, Maximum dose of acetaminophen is 4,000 mg from all sources in 24 hours. Both acetaminophen and ibuprofen, if ordered, should be given even when other ordered pain medications are indicated., Routine Given 04/15/2023 3:50 PM EDT 975 mg Given 04/15/2023 10:25 AM EDT 975 mg Given 04/14/2023 10:43 PM EDT 975 mg camphor-menthoL (Sarna) lotion Topical (Top), 3 TIMES DAILY, First dose on Wed04/12/23 at 1945, Until Discontinued docusate sodium (Colace) capsule 100 mg 100 mg, Oral, 2 TIMES DAILY, First dose on Wed04/12/23 at 2100, Until Discontinued, Routine Given 04/15/2023 10:25 AM EDT 100 mg Given 04/14/2023 10:43 PM EDT 100 mg Given 04/14/2023 10:27 AM EDT 100 mg enoxaparin (Lovenox) (40 mg/0.4 mL) subcutaneous injection 40 mg 40 mg, Subcutaneous, NIGHTLY, First dose on Wed04/13/23 at 2100, Until Discontinued, Routine famotidine (Pepcid) tablet 40 mg 40 mg, Oral, NIGHTLY, First dose on Wed04/12/23 at 1215, Until Discontinued, Routine Given 04/12/2023 11:3 7 AM EDT 40 mg ibuprofen (Advil) tablet 600 mg 600 mg, Oral, EVERY 6 HOURS, First dose on Wed04/14/23 at 0045, Until Discontinued, - Begin after ketorolac discontinued. , Routine Given 04/14/2023 4:03 AM EDT 600 mg ibuprofen (Advil) tablet 800 mg 800 mg, Oral, EVERY 6 HOURS, First dose (after last modification) on Wed04/14/23 at 1100, Until Discontinued, - Begin after ketorolac discontinued. , Routine Given 04/15/2023 3:49 PM EDT 800 mg Given 04/15/2023 10:24 AM EDT 800 mg Given 04/14/2023 10:43 PM EDT 800 mg ketorolac (Toradol) (15 mg/mL) injection 15 mg 15 mg, Intravenous, EVERY 6 HOURS, 5 doses, First dose on Wed04/12/23 at 1845, Last dose on Wed04/13/23 at 1845, Routine Given 04/13/2023 7:09 PM EDT 15 mg Given 04/13/2023 12:41 PM EDT 15 mg Given 04/13/2023 6:52 AM EDT 15 mg lactated Ringers 500 mL IV bolus at 500 mL/hr, Intravenous, ONCE PRN, 1 dose, Starting on Wed04/12/23 at 1053, Until Wed04/12/23 at 1409, Prior to epidural placement or concerning heart rate pattern or maternal condition. New Bag 04/12/2023 1:09 PM EDT 500 mL/hr lidocaine (Lidoderm) 5% patch 3 patch 3 patch, Transdermal, Administer over 12 Hours, EVERY 24 HOURS, First dose on Wed04/12/23 at 2000, Until Discontinued, Apply patch(es) for 12 hours, and then remove for 12 hours., Routine Patch Applied 04/14/2023 10:43 PM EDT 3 patches 20-Other (document in comment section) Patch Applied 04/13/2023 8:11 PM EDT 3 patches 20-Other (document in comment section) Patch Applied 04/12/2023 7:26 PM EDT 3 patches 13- Abdomen (Left) oxyCODONE (Roxicodone) tablet 10 mg 10 mg, Oral, EVERY 4 HOURS PRN, Starting on Wed04/12/23 at 1753, Until Wed04/15/23 at 1816, Pain, for pain scale 9-10, Routine Given 04/12/2023 7:26 PM EDT 10 mg oxyCODONE (Roxicodone) tablet 5 mg 5 mg, Oral, EVERY 4 HOURS PRN, Starting on Wed04/12/23 at 1753, Until Wed04/15/23 at 1816, Pain, for pain scale 6-8, Routine Given 04/14/2023 10:43 PM EDT 5 m g Given 04/13/2023 11:14 PM EDT 5 mg simethicone (Gas-X Chew) 80 mg chewable tablet 80 mg 80 mg, Oral, EVERY 6 HOURS PRN, Starting on Wed04/14/23 at 1745, Until Wed04/15/23 at 1816, Cramping, Routine Given 04/14/2023 6:30 PM EDT 80 mg sodium chloride 0.9 % (flush) (BD PosiFlush Normal Saline 0.9) flush 5 mL 5 mL, Intravenous, 2 TIMES DAILY, First dose on Wed04/12/23 at 1145, Until Discontinued, Routine Given 04/12/2023 1:10 PM EDT 5 mLs documented in this encounter Active and Recently Administered Medications Times are shown in EDT. Scheduled Medication Order 04/13/2023 04/14/2023 04/15/2023 camphor-menthoL (Sarna) lotion Topical (Top), 3 TIMES DAILY, First dose on Wed04/12/23 at 1945, Until Discontinued 0900 (Hold - Provider: Cathy Sebastian RN - Reason: Patient/family refused)1500 (Hold - Provider: Maricruz Juan RN - Reason: Patient/family refused)2100 (Not Given - Provider: Clementine Mendoza RN - Reason: Patient/family refused) 0900 (Not Given - Provider: Cathy Sebastian RN - Reason: Patient/family refused)1500 (Not Given - Provider: Maricruz Juan RN - Reason: Patient/family refused)2100 (Not Given - Provider: Mary Ellen Carrasco RN - Reason: Patient/family refused) 0900 (Not Given - Provider: Tessie Bettencourt RN - Reason: Patient/family refused)1500 (Due) docusate sodium (Colace) capsule 100 mg 100 mg, Oral, 2 TIMES DAILY, First dose on Wed04/12/23 at 2100, Until Discontinued, Routine 0820 (Given - Provider: Cathy Sebastian RN)2323 (Given - Provider: Clementine Mendoza RN) 1027 (Given - Provider: Cathy Sebastian RN)2243 (Given - Provider: Mary Ellen Carrasco RN) 1025 (Given - Provider: Tessie Bettencourt RN) enoxaparin (Lovenox) (40 mg/0.4 mL) subcutaneous injection 40 mg 40 mg, Subcutaneous, NIGHTLY, First dose on Wed04/13/23 at 2100, Until Discontinued, Routine 2100 (Not Given - Provider: Clementine Mendoza RN - Reason: Contraindicated - Comment: low platelets; below reference range) 2100 (Not Given - Provider: Mary Ellen Carrasco RN - Reason: Patient/family refused) ibuprofen (Advil) tablet 600 mg (CANCELED) 600 mg, Oral, EVERY 6 HOURS, First dose on Wed04/14/23 at 0045, Until Discontinued, - Begin after ketorolac discontinued. , Routine 0045 (Not Given - Provider: Clementine Mendoza RN - Reason: Patient/family refused)0403 (Given - Provider: Clementine Mendoza RN)0700 (Not Given - Provider: Maricruz Juan RN - Reason: See comment - Comment: orders adjusted) ibuprofen (Advil) tablet 800 mg(Linked Group 1) 800 mg, Oral, EVERY 6 HOURS, First dose (after last modification) on Wed04/14/23 at 1100, Until Discontinued, - Begin after ketorolac discontinued. , Routine 1028 (Given - Provider: Cathy Sebastian RN)1644 (Given - Provider: Cathy Sebastian, RODY)2243 (Given - Provider: Mary Ellen Carrasco, RODY) 0500 (Due)1024 (Given - Provider: Tessie Bettencourt, RN)1100 (Due)1549 (Given - Provider: Tessie Bettencourt, RN) ketorolac (Toradol) (15 mg/mL) injection 15 mg (COMPLETED) 15 mg, Intravenous, EVERY 6 HOURS, 5 doses, First dose on Wed04/12/23 at 1845, Last dose on Wed04/13/23 at 1845, Routine 0116 (Given - Provider: Mary Malik, RODY)0652 (Given - Provider: Mary Malik RN)1241 (Given - Provider: Cathy Sebastian RN)1909 (Given - Provider: Maricruz Juan RN) lidocaine (Lidoderm) 5% patch 3 patch 3 patch, Transdermal, Administer over 12 Hours, EVERY 24 HOURS, First dose on Wed04/12/23 at 2000, Until Discontinued, Apply patch(es) for 12 hours, and then remove for 12 hours., Routine 0726 (Patch Removed - Provider: Cathy Sebastian RN)2011 (Patch Applied - Provider: Clementine Mendoza RN - Comment: abdomen) 1000 (Patch Removed - Provider: Cathy Sebastian RN)2243 (Patch Applied - Provider: Mary Ellen Carrasco, RODY - Comment: abdomen) 1043 (Patch Removed - Provider: Gayle Sanon RN) polyethylene glycoL (Miralax) packet 17 g 17 g, Oral, DAILY, First dose on Wed04/12/23 at 1845, Until Discontinued, Routine 0900 (Not Given - Provider: Cathy Sebastian RN - Reason: Patient/family refused) 0900 (Not Given - Provider: Cathy Sebastian RN - Reason: Patient/family refused) 0900 (Due) Continuous Medication Order 04/13/2023 04/14/2023 04/15/2023 lactated ringers infusion 100 mL/hr, Intravenous, CONTINUOUS, Starting on Wed04/12/23 at 1145, Until Wed04/15/23 at 1816, Maximum 125 mL in one hour. PRN Medication Order 04/13/2023 04/14/2023 04/15/2023 acetaminophen (Tylenol) tablet 650 mg (CANCELED) 650 mg, Oral, EVERY 6 HOURS PRN, Starting on Wed04/12/23 at 1753, Until Wed04/14/23 at 0739, Pain, Maximum dose of acetaminophen is 4,000 mg from all sources in 24 hours. Both acetaminophen and ibuprofen, if ordered, should be given even when other ordered pain medications are indicated., Routine 0347 (Given - Provider: Tejal Crow RN)1047 (Given - Provider: Cathy Sebastian RN)1736 (Given - Provider: Cathy Sebastian RN) 0402 (Given - Provider: Clementine Mendoza RN) acetaminophen (Tylenol) tablet 975 mg 975 mg, Oral, EVERY 6 HOURS PRN, Starting on Wed04/14/23 at 0739, Until Mavis 04/15/23 at 1816, Pain, Maximum dose of acetaminophen is 4,000 mg from all sources in 24 hours. Both acetaminophen and ibuprofen, if ordered, should be given even when other ordered pain medications are indicated., Routine 1027 (Given - Provider: Cathy Sebastian RN)1644 (Given - Provider: Cathy Sebastian RN)2243 (Given - Provider: Mary Ellen Carrasco, RODY) 1025 (Given - Provider: Tessie Bettencourt, RODY)1550 (Given - Provider: Tessie Bettencourt, RODY) oxyCODONE (Roxicodone) tablet 10 mg(Linked Group 2) 10 mg, Oral, EVERY 4 HOURS PRN, Starting on Wed04/12/23 at 1753, Until Mavis 04/15/23 at 1816, Pain, for pain scale 9-10, Routine 2314 (See Alternative - Provider: Clementine Mendoza RN) 2243 (See Alternative - Provider: Mary Ellen Carrasco, RODY) oxyCODONE (Roxicodone) tablet 5 mg(Linked Group 2) 5 mg, Oral, EVERY 4 HOURS PRN, Starting on Wed04/12/23 at 1753, Until Mavis 04/15/23 at 1816, Pain, for pain scale 6-8, Routine 2314 (Given - Provider: Clementine Mendoza RODY) 2243 (Given - Provider: Mary Ellen Carrasco RN) simethicone (Gas-X Chew) 80 mg chewable tablet 80 mg 80 mg, Oral, EVERY 6 HOURS PRN, Starting on Wed04/14/23 at 1745, Until Mavis 04/15/23 at 1816, Cramping, Routine 1830 (Given - Provider: Cathy Sebastian RN) Linked Groups Order Group 1: ibuprofen (Advil) tablet 800 mgJump to med 800 mg, Oral, EVERY 6 HOURS, First dose (after last modification) on Wed04/14/23 at 1100, Until Discontinued, - Begin after ketorolac discontinued. , Routine Group 2: oxyCODONE (Roxicodone) tablet 5 mgJump to med 5 mg, Oral, EVERY 4 HOURS PRN, Starting on Wed04/12/23 at 1753, Until Mavis 04/15/23 at 1816, Pain, for pain scale 6-8, Routine Or oxyCODONE (Roxicodone) tablet 10 mgJump to med 10 mg, Oral, EVERY 4 HOURS PRN, Starting on Wed04/12/23 at 1753, Until Mavis 04/15/23 at 1816, Pain, for pain scale 9-10, Routine documented in this encounter Care Teams Reinforced Steel Placing Supervisor Relationship Specialty Start Date End Date Analisa Martinez PA [address] [place] [address] PCP - General 11/30/22 documented as of this encounter
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
--- OUTSIDE RECORDS SUMMARY | 2024-05-04 18:59 | XMS_ITS | Encounter Summary ---
Author Organization [facility] [place] [address] Care Team Providers Care Director Of District Office Name Role Phone Analisa Martinez Primary Care Provider [phone] Encounter Details Date Type Department Care Team (Late st Contact Info) Description 12/25/2022 9:00 AM EDT Office Visit Obstetrics [place] [address] Kate Lindsay MD [facility] [address] OBSTETRICS [place] [address] Dehiscence of old uterine scar with extension before onset of labor, delivered; Previous delivery affecting , antepartum Social History Tobacco Use Types Packs/Day Years [...] Sign Reading Time Taken Comments Blood Pressure 118/66 12/25/2022 9:22 AM EDT Pulse - - Temperature - - Respiratory Rate - - Oxygen Saturation - - Inhaled Oxygen Concentration - - Weight 98.5 kg (217 lb 3.2 oz) 12/25/2022 9:22 A M EDT Height - - Body Mass Index 38.49 11/30/2022 4:24 PM EST documented in this encounter Progress Notes * Kate Lindsay MD - 12/25/2022 9:00 AM EDT 20w6d BP 118/66 Wt 98.5 kg (217 lb 3.2 oz) BMI 38.49 kg/m?? Normal appearing anatomy, growth, fluid, placentation. XI myometrial thickness 3-4mm thick. Notch at prior CS scar site 3mm. Beginning to feel movement. No bleeding, leaking, contractions. Plans to get all care at [facility], and to deliver here. Plan f/u visit in 4 weeks; f/u US for growth /PNV 8 weeks. documented in this encounter Plan of Treatment Not on file documented as of this encounter Results * US OB Follow [...] who have questions, please contact the health manager wound care that requested your imaging first. ?Fide Haas, Staff Physician Electronically Signed Final Report ?? 02/19/2023 10:22 am Narrative 02/19/2023 10:22 AM EDT OBSTETRICS REPORT ?(Signed Final 02/19/2023 10:22 am) PATIENT INFO: ID #: ? [id number] ?: ??[birth year] (27 yrs)(F) Name: ? DENISE YOUNG ? Visit Date: 02/19/2023 10:09 am PERFORMED BY: Performed By: ? Lima Cummins RDMS Attending: ?Waldo MENESES, Fide Weir Referred By: ?Kate LINDSAY Location: ? [facility] SERVICE(S) PROVIDED: UOBFOL - Efw - Growth ??- Brown - [id number] ?[id number] UOBTVCER - Transvaginal ??2nd Trimester - ?[id number] Cervical Length - [id number] INDICATIONS: 28 weeks gestation of ?Z3A.28 h/o [...] - 87 FL/AC: ? 23.6 ??% ? 20 - 24 Est. FW: ?1513 ??gm ?3 lb 5 [...] 02/19/2023 10:22 am) PATIENT INFO: ID #: [id number] : [birth year] (27 yrs)(F) Name: DENISE JULIAN Visit Date: 02/19/2023 10:09 am PERFORMED BY: Performed By: Lima Cummins RDMS Attending: Fide Haas MD Referred By: Kate LINDSAY Location: [facility] SERVICE(S) PROVIDED: UOBFOL - Efw - Growth - Brown - [id number] UOBTVCER - Transvaginal 2nd Trimester - [id number] Cervical Length - [id number] INDICATIONS: 28 weeks gestation of Z3A.28 h/o [...] Best: 28w 6d Det. By: Previous CHEVY: 05/08/23 Ultrasound (11/17/22) -------- ANATOMY: -------- Cranium: Visualized [...] who have questions, please contact the health manager wound care that requested your imaging first. Fide Haas, Staff Physician Electronically Signed Final Report 02/19/2023 10:22 am E Hyacinth Lindsay MD IMG OB ORDERAB LES documented in this encounter Visit Diagnoses Diagnosis Dehiscence of old uterine scar with extension before onset of labor, delivered Previous delivery affecting , antepartum Previous delivery, antepartum condition or complication Dehiscence of old uterine scar with extension before onset of labor, delivered Previous delivery affecting , antepartum Previous delivery, antepartum condition or complication documented in this encounter Care Teams Director Of District Office Relationship Specialty Start Date End Date Analisa Martinez PA [address] [place] [address] PCP - General 11/30/22 documented as of this encounter
--- OUTSIDE RECORDS SUMMARY | 2024-05-04 18:59 | XMS_ITS | Encounter Summary ---
Author Organization [facility] Address [facility] [place] [address] Care Team Providers Care Sfdc Consultant Name Role Phone Analisa Martinez Primary Care Provider [phone] Encounter Details Date Type Department Care Team (Latest Contact Info) Description 12/24/2022 Travel Social History Tobacco Use Types Packs/Day [...] on filedocumented in this encounter Care Teams Sfdc Consultant Relationship Specialty Start Date End Date [place] [address] PCP - General 11/30/22 documented as of this encounter
--- OUTSIDE RECORDS SUMMARY | 2024-05-04 18:59 | XMS_ITS | Encounter Summary ---
Author Organization [facility] Address [facility] [place] [address] Care Team Providers Care Superintendent System Operation Name Role Phone Analisa Martinez Primary Care Provider [phone] Reason for Visit * Reason Comments Routine Visit Encounter Details Date Type Department Care Team (Late st Contact Info) Description 01/21/2023 1:00 PM EDT Routine Obstetrics [place] [address] Nitza Murguia MD [facility] [address] OBSTETRICS [place] [address] GA: 24w5d Social History Tobacco Use Types Packs/Day Years [...] Sign Reading Time Taken Comments Blood Pressure 96/64 01/21/2023 1:08 PM EDT Pulse - - Temperature - - Respiratory Rate - - Oxygen Saturation - - Inhaled Oxygen Concentration - - Weight 99 kg (218 lb 4.8 oz) 01/21/2023 1:08 PM EDT Height - - Body Mass Index 38.68 11/30/2022 4:24 PM EST documented in this encounter Progress Notes * Elizabeth Basilio CCMA - 01/21/2023 1:00 PM EDT The OB identification card, Glucose screening directions (if applicable) along with the Guide to [place] was given to the patient. The materials were discussed and the patient was encouraged to read the information and direct questions to the provider. * Nitza Murguia MD - 01/21/2023 1:00 PM EDT Lots of tearing pain in area of CS scar Well otherwise She denies bleeding, leaking of fluid, pain or regular contractions. She notes good movement. Has been having some low blood pressure Patient Vitals for the past 24 hrs: BP 01/21/23 1308 96/64 FHR 140 Will do GCT and hemogram at [facility] CS scheduled 36 6/7 Will need steroids ERB documented in this encounter Plan of Treatment Not on file documented as of this encounter Visit Diagnoses Diagnosis , unspecified gestational age Dehiscence of old uterine scar with extension before onset of labor, delivered documented in this encounter Care Teams Superintendent System Operation Relationship Specialty Start Date End Date [place]isa [place] [address] PCP - General 11/30/22 documented as of this encounter
--- OUTSIDE RECORDS SUMMARY | 2024-05-04 18:59 | XMS_ITS | Encounter Summary ---
Author Organization [facility] [place] [address] Care Team Providers Care Fingernail Former Name Role Phone Melody Koenig MD Primary Care Provider [phone] Encounter Details Date Type Department Care Team (Late st Contact Info) Description 11/26/2022 Orders Only Obstetrics [place] [address] Fide Haas MD [facility] DR OBSTETRICS [place] [address] Back pain affecting in second trimester Social History Tobacco Use Types Packs/Day Years [...] as of this encounter Progress Notes * Fide Haas MD - 11/26/2022 2:04 PM EST Returned patient call. Had visit to [facility] for pain and is angry with their care. She c/o pain in pelvis, back hips and legs. Constant. No bleeding or LOF. Had similar at end of last . Had bedside US which raised possibility of XI 3-4cm fibroid vs contraction. She is focus on fibroid as cause of her pain. Pain is impeding work. Requesting letter for out of work, disability given pain. Offered US to evaluate XI fibroid Recommended pelvic support belt Offered PT referral (declined) Tylenol Lidoderm patches (have not worked) Suggested Message therapy Suggested Yoga Letter given as requested Fide Haas documented in this encounter Plan of Treatment Not on file documented as of this encounter Visit Diagnoses Diagnosis Back pain affecting in second trimester documented in this encounter Care Teams Fingernail Former Relationship Specialty Start Date End Date Melody Koenig MD [address] [place] [address] PCP - General Family Medicine 10/30/22 11/29/22 documented as of this encounter
--- OUTSIDE RECORDS SUMMARY | 2024-05-04 18:59 | XMS_ITS | Encounter Summary ---
Author Organization [facility] [place] [address] Care Team Providers Care Road Boss Name Role Phone Analisa Martinez Primary Care Provider [phone] Encounter Details Date Type Department Care Team (Late st Contact Info) Description 02/16/2023 Orders Only Obstetrics [place] [address] Nitza Murguia MD [facility] OBSTETRICS [place] [address] Elevated glucose tolerance test (Primary Dx) Social History Tobacco Use Types Packs/Day Years [...] as of this encounter Visit Diagnoses Diagnosis Elevated glucose tolerance test- Primary Impaired glucose tolerance test documented in this encounter Care Teams Road Boss Relationship Specialty Start Date End Date Analisa Martinez PA [address] [place] [address] PCP - General 11/30/22 documented as of this encounter
--- OUTSIDE RECORDS SUMMARY | 2024-05-04 18:59 | XMS_ITS | Encounter Summary ---
[place] [address] Care Team Providers Care Document Analyst Name Role Phone Analisa Martinez Primary Care Provider [phone] Encounter Details Date Type Department Care Team (Late st Contact Info) Description 02/16/2023 External Results Obstetrics [place] [phone] Macarena Priest, RN Social History Tobacco Use [...] Procedure Name Priority Date/Time Associated Diagnosis Comments GESTATIONAL DIABETES SCREEN Routine 02/15/2023 2:15 PM EDT HEMOGRAM EXTERNAL LAB PANEL Routine 02/15/2023 documented in this encounter Results * (ABNORMAL) Gestational Diabetes Screen (02/15/2023 2:15 PM EDT) Glucose Gestational Screen, 1 Hour 145 H EXTERNAL FACILITY Blood 02/15/2023 2:15 PM EDT Historical Provider CHEMISTRY ORDERAB LES EXTERNAL FACILITY * Hemogram External Lab Panel (02/15/2023) White Blood Cell 11.34 EXT [facility] Red Blood Cell 3.89 EXTER [facility] Hemoglobin 12.0 EXTERNAL FACILITY Hematocrit 34.8 EXTERNAL FACILITY Mean Cell Volume 90.0 EXT [facility] Mean Cell Hemoglobin 30.8 EXTERNAL FACILITY Mean Cell Hemoglobin Concentration 34.5 EXTERNAL FACILITY RDW coefficient of variation 12.9 EXTERNAL FACILITY Platelet 145 [facility]ACILITY Mean Platelet Volume 12.5 EXTERNAL FACILITY 02/15/2023 Historical Provider EXTERNAL LAB [facility] documented in this encounter Visit Diagnoses Not on filedocumented in this encounter Care Teams Document Analyst Relationship Specialty Start Date End Date Analisa Martinez PA [address] [place] [address] PCP - General 11/30/22 documented as of this encounter
--- OUTSIDE RECORDS SUMMARY | 2024-05-04 18:59 | XMS_ITS | Encounter Summary ---
Author Organization [facility] [place] [address] Care Team Providers Care Laborer [place] Name Role Phone Melody Koenig MD Primary Care Provider [phone] Encounter Details Date Type Department Care Team (Late st Contact Info) Description 11/26/2022 Notes Only Obstetrics [place] [address] Fide Haas MD [facility] OBSTETRICS [place] [address] Social History Tobacco Use Types Packs/Day Years [...] on filedocumented in this encounter Care Teams Laborer [place] Relationship Specialty Start Date End Date Melody Koenig MD [address] [place], [place] [id number] PCP - General Family Medicine 10/30/22 11/29/22 documented as of this encounter
--- OUTSIDE RECORDS SUMMARY | 2024-05-04 18:59 | XMS_ITS | Encounter Summary ---
[place] [address] Care Team Providers Care Business Support Administrator Name Role Phone Melody Koenig MD Primary Care Provider [phone] Encounter Details Date Type Department Care Team (Late st Contact Info) Description 11/26/2022 Telephone Obstetrics [place] [address] Macarena Priest RN Social History [...] Telephone Encounter - Macarena Priest RN - 11/26/2022 1:02 PM EST Isabel Julian 15w0d [facility] pt Reason for call: pelvic pain Pt reports she saw Dr Armendariz on 11/20, says he found a fibroid in her uterus, the size of a tangerine; she says he told her that's likely why she is having so much pelvic pain. 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 She states she is unable to work due to the pain. Says she has to have significant help with ADLs due to the pain. She was seen at [facility] today and she is very disappointed in their care, they basically told me to take a Tylenol and suck it up - I am furious and will not be going back there. I stated I would forward this note to Dr Haas, the contracts manager MFM. I explained that Dr Haas may be busy on the BP and to send us a MyDh if she hasnt' heard from her in a couple of hours, sheagrees to plan, verbalized understanding. No further questions at this time. documented in this encounter Plan of Treatment Not on file documented as of this encounter Visit Diagnoses Not on filedocumented in this encounter Care Teams Business Support Administrator Relationship Specialty Start Date End Date Melody Koenig MD [address] [place] [address] PCP - General Family Medicine 10/30/22 11/29/22 documented as of this encounter
--- OUTSIDE RECORDS SUMMARY | 2024-05-04 18:59 | XMS_ITS | Encounter Summary ---
Author Organization [facility] Address [facility] [place] [address] Care Team Providers Care Test Baker Name Role Phone Analisa Martinez Primary Care Provider Encounter Details Date Type Department Care Team (Latest Contact Info) Description 03/09/2023 Travel Social History Tobacco Use Types Packs/Day [...] on filedocumented in this encounter Care Teams Test Baker Relationship Specialty Start Date End Date Analisa [place] [address] PCP - General 11/30/22 documented as of this encounter
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
--- OUTSIDE RECORDS SUMMARY | 2024-05-04 18:59 | XMS_ITS | Encounter Summary ---
Author Organization [facility] Address [facility] [place] [address] Care Team Providers Care Human Resource Advisor Name Role Phone Analisa Martinez Primary Care Provider [phone] Encounter Details Date Type Department Care Team (Latest Contact Info) Description 11/30/2022 Travel Social History Tobacco Use Types Packs/Day [...] on filedocumented in this encounter Care Teams Human Resource Advisor Relationship Specialty Start Date End Date [place] [address] PCP - General 11/30/22 documented as of this encounter
--- OUTSIDE RECORDS SUMMARY | 2024-05-04 18:59 | XMS_ITS | Encounter Summary ---
Author Organization [facility] Address [facility] [address] Care Team Providers Care Home Delivery Driver Name Role Phone Analisa Martinez Primary Care Provider [phone] Encounter Details Date Type Department Care Team (Late st Contact Info) Description 01/17/2023 Telephone Obstetrics [place] [address] Staci Jay MD [facility] DR OBSTETRICS & [place] [address] Social History Tobacco Use Types Packs/Day Years [...] encounter Miscellaneous Notes * Telephone Encounter - Staci Jay MD - 01/17/2023 7:59 PM EDT Telephone Encounter Isabel Julian is a 27 yo female at 24w1d who calls due to dizziness. She reports dizziness when standing suddenly or when squatting. She denies any contractions, LOF, or VB. Her fetus is moving well. She denies any palpitations with these symptoms. She felt a little dizzy also when bearing down to have a bowel movement today. She reports okay water intake over the last few days; she's been getting Gatorade Zero, but hasn't been taking in quite as much. We discussed the physiologic changes of including changes in blood pressure and that I suspect that this is the cause of her symptoms, however discussed that if she starts having more concerning symptoms such as changes in her vision, palpitations, or if she loses consciousness, that she should present to the ED. She has a follow-up appointment with Dr. Murguia on . Until that time I also recommended increase water intake as well as support hose. Patient understanding. Staci Jay MD documented in this encounter Plan of Treatment Not on file documented as of this encounter Visit Diagnoses Not on filedocumented in this encounter Care Teams Home Delivery Driver Relationship Specialty Start Date End Date Analisa Martinez PA [address] [place] [address] PCP - General 11/30/22 documented as of this encounter
--- OUTSIDE RECORDS SUMMARY | 2024-05-04 18:59 | XMS_ITS | Encounter Summary ---
Author Organization [facility] [place] [address] Care Team Providers Care Computer Networking Instructor Name Role Phone Analisa Martinez Primary Care Provider [phone] Encounter Details Date Type Department Care Team (Late st Contact Info) Description 03/17/2023 Telephone Obstetrics [place] [phone] Vilma Collins MD [facility] DR OBSTETRICS & [place] [address] Social History Tobacco Use Types Packs/Day Years [...] Telephone Encounter - Vilma Collins MD - 03/17/2023 9:57 PM EDT Isabel Julian is 27 y.o. at 32w4d w/ hx of prior C/s x2 with uterine window noted at last . Plan for at 36 wk with pre-op betamethasone. Patient called reporting cramping 1-2 hrs ago while walking with associated lower abdominal pressure. She can't recall what labor felt like but she's uncomfortable enough that she can't watch TV. Denies LOF. Reported movement. She lives 1 hr 15 mins. Patient counseled to present for evaluation. Vilma Collins MD, PGY3 Obstetrics and Gynecology 03/17/2023 documented in this encounter Plan of Treatment Not on file documented as of this encounter Visit Diagnoses Diagnosis Previous delivery affecting Previous delivery, unspecified as to episode of care or not applicable documented in this encounter Care Teams Computer Networking Instructor Relationship Specialty Start Date End Date Analisa Martinez PA [address] [place] [address] PCP - General 11/30/22 documented as of this encounter
--- OUTSIDE RECORDS SUMMARY | 2024-05-04 18:59 | XMS_ITS | Encounter Summary ---
Author Organization [facility] [place] [address] Care Team Providers Care Auto Top Mechanic Name Role Phone Analisa Martinez Primary Care Provider [phone] Reason for Visit * Auth/Cert (Routine) Specialty Diagnoses / Procedures Referred By Contac t Referred To Contact Diagnoses prrior with window Procedures PRO DELIVERY ONLY ER OBSVO Sujata Prater MD [facility] [place] [address] [facility] Referral ID Status Reason Start Date Expiration Date Visits Re quested Visits Authorized [id number] 1 1 Encounter Details Date Type Department Care Team (Latest Contact Info) Description 03/18/2023 12:01 AM EDT - 03/18/2023 10:57 AM EDT Hospital [place] [id number] Samuel Barron MD [facility] [place] [address] Discharge Disposition: Home Social History Tobacco Use [...] Sign Reading Time Taken Comments Blood Pressure 113/56 03/18/2023 9:51 AM EDT Pulse 84 03/18/2023 9:51 AM EDT Temperature 36.8 ??C (98.2 ??F) 03/18/2023 9:51 AM ED T Respiratory Rate 17 03/18/2023 9:51 AM EDT Oxygen Saturation 98% 03/18/2023 2:00 AM EDT Inhaled Oxygen Concentration - - Weight 98.8 kg (217 lb 12.8 oz) 03/18/2023 4:00 AM EDT Height 160 cm (5' 2.99) 03/18/2023 4:00 AM EDT Body Mass Index 38.59 03/18/2023 4:00 AM EDT documented in this encounter Discharge Summaries * Maria Teresa Dhillon MD - 03/18/2023 10:57 AM EDT Discharge Summary Patient Name: Isabel Julian Patient Age: 27 y.o. Language: Zambian Race: White Ethnicity: Not nor Admit date: 03/18/2023 Discharge date and time: 03/18/2023 Attending Physician: Dr. Samuel Barron Discharge Physician: Dr. Nitza Murguia Follow-up Recommendations for Providers: - Betamethasone #2 to be administered 03/19 at [facility] - Next visit with Dr. Murguia 03/22/23 Inpatient Provider Contact Information: [facility] Maternal- Medicine, Care Provider: [facility] Referring Provider if applicable: N/A Discharge Diagnoses (Hospital Problems) and Secondary Diagnoses (Chronic Problems): Active Hospital Problems Diagnosis labor Resolved Hospital Problems No resolved problems to display. Active Non-Hospital Problems Diagnosis History of rupture of uterus Previous delivery affecting Operations/Major Procedures: N/A Admission History: (per admit note cut and paste) Chief Complaint: Isabel Julian was admitted today secondary to threatened labor in the setting of 1.2mm lower uterine segment with Hx x2. Isabel Julian is a 27 y.o. at 32w5d weeks gestation. Her has been complicated by: Hx CS x2 with thin lower uterine segment doted at time of second . Plan 04/12 with BMZ 04/07 and 04/08. Lower uterine segment 1.2mm-1.5mm at the thinnest 02/19/23 (image below). Notch atprior CS scar site 3mm 12/25/22. Placenta posterior. Desires sterilization at time of repeat TUD: began at 2 PPD and now down to 1/2 PPD. Declines nicotine patches while inpatient due to reaction to adhesive. Isabel Julian has been feeling intermittent contractions since yesterday. She went for a walk ~8PM with her partner, which exacerbated the contractions. They have been increasing in frequency and intensity. Due to counseling to present to care if mary due to risk for uterine rupture, she called and came to [facility] (lives ~1 hour away). Here she continues to report regular, painful contractions. She offers report of a tearing sensation when the fetus moves. No LOF. No vaginal bleeding. Review of Systems- Negative to complete review except as noted in the HPI. Obstetric Review of Systems Total Weight Gain this Not found. Movement: normal Contractions: regular, every 6 minutes Leaking: None Bleeding; none Preeclampsia signs and symptoms: None Hospital Course: Isabel was admitted overnight. Received first dose of betamethasone 03/18/230. Cervix was 0.5cm dilated on 2 interval exams, and contractions resolved. Patient was in agreement with discharge homeand preferred to get second dose of Betamethasone at [facility]. Tocolytics Received if applicable: None Date Steroid Complete: First dose 03/18 GBS status: Unknown Cervix at discharge: Dilation: Dilation: 0.5 Effacement: Effacement: 20 Station: Station: -3 Vital signs at Discharge: BP: 113/56, Heart Rate: 84, Temp: 36.8 ??C (98.2 ??F), Resp: 17, BMI (Calculated): 38.59 Height: 160 cm (5' 2.99) (03/18/23 0400) Weight: 98.8 kg (217 lb 12.8 oz) (03/18/23 0400) Functional and Cognitive status: At baseline Important Studies and Lab Data: Stable Labs: Last 3 wbc, hgb, hct plt Recent Labs 03/18/23 0150 02/15/23 0000 11/20/22 1230 WBC 11.3* 11.34 9.7* HGB 11.3* 12.0 13.2 HCT 32.9* 34.8 38.6 PLATELET 130* 145 141* Last 3 Lytes Recent Labs 11/20/22 1230 NA 137 K 4.4 CL 104 CO2 23 BUN 5* CREATININE 0.50* Last 3 LFTs Recent Labs 11/20/22 1230 AST 13 ALT 13 ALKPHOS 51 BILITOT <0.2* Studies: N/A Pending Studies and Lab Data: GBS Discharge Conditions/Prognosis: Stable Discharge to: Home Updated Allergies/ADRs: Allergies Allergen Reactions Environmental [Latex, Natural Rubber] Rash Penicillins Varicella Vaccines Hives Immunizations Given this Hospitalization: There is no immunization history on file for this patient. Discharge Medications: Your Medications UNREVIEWED medications - Discuss With Your Provider Dose Details acetaminophen 325 mg tablet Commonly known as: Tylenol Take 650 mg by mouth every 4 hours as needed for Pain. 650 mg Refills: 0 ferrous gluconate 324 mg (37.5 mg iron) tablet Commonly known as: Ferate Take 324 mg by mouth daily. 324 mg Refills: 0 pantoprazole EC [address] tablet Commonly known as: Protonix Refills: 0 vitamin 27 & [id number] 60 mg iron-1 mg Tablet Take 1 tablet by mouth daily. 1 tablet Refills: 0 Smoking Status at Discharge: Social History Tobacco Use Smoking Status Every Day Packs/day: 0.50 Types: Cigarettes Smokeless Tobacco Never Tobacco Comments Cut back from 2 packs Instructions Given to Patient at Discharge: There are no outpatient Patient Instructions on file for this admission. General Instructions [facility] to contact OB doctor [facility] to [place] [address] to contact family doctor Following your visit to [facility] Triage ??N?DL?TL?? Reason for Visit: Provider: GESTATION - Less Than 37 Weeks Call your provider if: You are feeling any cramping sensations in your abdomen less than 20 minutes apart [place] Contractions usually are irregular may get less painful or go away with walking, resting, or any other activities usually felt in the front and do not radiate to the back labor contractions may start irregular in frequency, then become regular and more frequent usually start in the front and radiate to the back resting, walking, and other activities will not take them away or may even make them worse You are leaking fluid may be a small leak of fluid may be a large gush note the time it started leaking, amount, and color of fluid (clear, yellow, green, pink, red) You notice vaginal bleeding spotting is normal following a vaginal exam in your doctor's or class b driver's office you should not bleed as much as a period You have noticed a marked decrease in your baby's movement refer to your kick count instructions in the Your Journey book baby should move at least 10 times in 2 hours You have had any direct trauma to your abdomen such as a car accident, fall, or impact or if you have any of these symptoms: Headache Visual disturbance/spots in front of your eyes/blurry vision Pain under your ribs toward the right side of your abdomen Sudden swelling to your legs or any increase in swelling to your arms and face Pain or bleeding on urination A temperature at or above 100.4F Nausea or vomiting Flu-like symptoms: cough, fever, or muscle aches GENERAL INSTRUCTIONS Drink plenty of non-caffeinated fluids throughout the day to prevent dehydration Keep your regularly scheduled doctor or class b driver appointment NEW MEDICATIONS: SPECIAL INSTRUCTIONS/FOLLOW-UP CARE: Future Appointments and Orders Future Appointments and Orders Future Appointments Provider Department Dept Phone 03/22/2023 4:00 PM Nitza Murguia MD Obstetrics and Gynecology at [facility] Arrive at: [employer] [facility] 04/07/2023 4:00 PM Casey Armendariz MD Obstetrics and Gynecology at [facility] Arrive at: [employer] [facility] [phone] Discharge References/Attachments None documented in this encounter Discharge Instructions * Discharge Instructions* Tejal Miles RN - 03/18/2023 10:15 AM EDT [facility] to contact OB doctor [facility] [address] to contact class b driver [place]CEPCI[employer]N Degroot to contact family doctor [facility] Triage ??N?DL?TL?? Reason for Visit: Provider: GESTATION - Less Than 37 Weeks Call your provider if: You are feeling any cramping sensations in your abdomen less than 20 minutes apart [place] Contractions usually are irregular may get less painful or go away with walking, resting, or any other activities usually felt in the front and do not radiate to the back labor contractions may start irregular in frequency, then become regular and more frequent usually start in the front and radiate to the back resting, walking, and other activities will not take them away or may even make them worse You are leaking fluid may be a small leak of fluid may be a large gush note the time it started leaking, amount, and color of fluid (clear, yellow, green, pink, red) You notice vaginal bleeding spotting is normal following a vaginal exam in your doctor's or class b driver's office you should not bleed as much as a period You have noticed a marked decrease in your baby's movement refer to your kick count instructions in the Your Journey book baby should move at least 10 times in 2 hours You have had any direct trauma to your abdomen such as a car accident, fall, or impact or if you have any of these symptoms: Headache Visual disturbance/spots in front of your eyes/blurry vision Pain under your ribs toward the right side of your abdomen Sudden swelling to your legs or any increase in swelling to your arms and face Pain or bleeding on urination A temperature at or above 100.4F Nausea or vomiting Flu-like symptoms: cough, fever, or muscle aches GENERAL INSTRUCTIONS Drink plenty of non-caffeinated fluids throughout the day to prevent dehydration Keep your regularly scheduled doctor or class b driver appointment NEW MEDICATIONS: SPECIAL INSTRUCTIONS/FOLLOW-UP CARE: documented in this encounter Medications at Time [...] by mouth daily. 14 each 04/15/2023 04/28/2023 acetaminophen (Tylenol) 325 mg tablet Take 650 mg by mouth every 4 hours as needed for Pain. 04/15/2023 pantoprazole EC (Protonix) 40 mg Tablet, Delayed Release (E.C.) 10/29/2022 04/28/2023 ferrous gluconate (Fergon) 324 mg (37.5 mg iron) Tablet Take 324 mg by mouth daily. 05/24/2023 vitamin 27 & echnnhr-kdce-DM 60 mg iron-1 mg Tablet Take 1 tablet by mouth daily. 05/24/2023 documented as of this encounter Progress Notes * Samuel Barron MD - 03/18/2023 10:57 AM EDT 03/18/23 1307 Nonstress Test, Fetus A HR (beats/min) 135 HR Variability moderate (amplitude range 6 to 25 bpm) HR Accelerations present HR Decelerations none Contraction Frequency (Minutes) every 3-5 min Nonstress Test Interpretation Reactive, >32 weeks: two 15 bpm accelerations lasting 15 seconds Overall Impression Reassuring for gestational age NST Times NST Start Time 0016 NST Stop Time 0145 I personally reviewed the heart tracing. The NST is reactive and the tracing is reassuring. SAMUEL BARRON MD * Maria Teresa Dhillon MD - 03/18/2023 10:57 AM EDT Obstetrical Antepartum Progress Note ID: Isabel Julian is a 27 y.o. at 32w5d admitted for r/o labor in a c/b prior C/S x2, with uterine window noted on last c/s, 1.5mm XI thickness noted on current . Interval Events: - BMZ #1 0330 Subjective: Isabel reports she is very comfortable. Cramping has resolved entirely. Good FM, no VB/LOF. Very hungry. She would like to go home. Objective: BP 113/56 HR 84 SpO2 98% Physical Exam: Gen: AAO, resting in bed, NAD Cardio: nl rhythm, S1, S2, no M/C/R/G Pulm: CTA BL, no W/C/R Abd: +BS, soft, NT, ND, gravid Ext: warm, well-perfused, no BRANDI or calf tenderness Neuro: grossly intact Cervix Exam: Not repeated Dilation: 0.5 (03/18/23 0231) Effacement: 20 Station: -3 OB Examiner: Lyric Malave Presentations: Cephalic Heart Rate Interpretation: Please see daily NST note Record Review Labs Lab Results Component Value Date ABORH A Pos 03/18/2023 HCT 32.9 (L) 03/18/2023 HGB 11.3 (L) 03/18/2023 MCV 87.3 03/18/2023 AST 13 11/20/2022 Most Recent Ultrasound Date: 02/19/23 GA at US: 28w EFW: 91% 1513g/3lb5oz Growth large for gestational age Amniotic fluid volumenormal Assessment/Plan: Isabel Julian is a 27 y.o. at 32w5d admitted for r/o PTL in setting of hx window noted on repeat section, 1.2mm XI noted on U/S. Cervix closed on 2 subsequent exams,patient now entirely comfortable. - She plans to get BMZ #2 tomorrow at [facility], confirmed by Dr. Prater - 36w rCD with BS planned - D/C home Seen with Dr. Murguia, attending MFM Maria Teresa Dhillon MD PGY3 03/18/2023 Associated attestation - Nitza Murguia MD - 03/18/2023 10:27 PM EDT MFM attending note I saw and evaluated the patient. I agree with the findings and the plan of care as documented in Dr. Dhillon's note. The patient reports feeling well. She denies contractions, leaking of fluid or bleeding. She reports good activity. My physical exam confirms and/or revises Dr. Dhillon's exam. Temp: [36.8 ??C (98.2 ??F)] Heart Rate: [79-84] Resp: [17-18] BP: (113)/(53-56) SpO2: [97 %-98 %] Heart Rate from SpO2: [79 bpm-90 bpm] Nonstress test: Documented elsewhere Abdomen: gravid, soft, nontender Ext: no edema Impression: arrested contractions at 32w 5d Prior uterine dehiscence and thin XI Plan: Will discharge today Second dose of betamethasone locally [facility] planned 36-37 weeks Nitza Murguia MD * Mary Malik RN - 03/18/2023 3:56 AM EDT RN at bedside audible FHR US not tracing on monitor. Switched out with another US. documented in this encounter H&P Notes * Lyric Garber DO - 03/18/2023 12:49 AM EDT Images from the original note were not included. Obstetrical Admission Note Initial Care Provider (if early referral or co-managed by MFM): Jen MFDuncan Chief Complaint: Isabel Julian was admitted today secondary to threatened labor in the setting of 1.2mm lower uterine segment with Hx x2. Isabel Julian is a 27 y.o. at 32w5d weeks gestation. Her has been complicated by: Hx CS x2 with thin lower uterine segment doted at time of second . Plan 04/12 with BMZ 04/07 and 04/08. Lower uterine segment 1.2mm-1.5mm at the thinnest 02/19/23 (image below). Notch atprior CS scar site 3mm 12/25/22. Placenta posterior. Desires sterilization at time of repeat TUD: began at 2 PPD and now down to 1/2 PPD. Declines nicotine patches while inpatient due to reaction to adhesive. Isabel Julian has been feeling intermittent contractions since yesterday. She went for a walk ~8PM with her partner, which exacerbated the contractions. They have been increasing in frequency and intensity. Due to counseling to present to care if mary due to risk for uterine rupture, she called and came to [facility] (lives ~1 hour away). Here she continues to report regular, painful contractions. She offers report of a tearing sensation when the fetus moves. No LOF. No vaginal bleeding. Review of Systems- Negative to complete review except as noted in the HPI. Obstetric Review of Systems Total Weight Gain this Not found. Movement: normal Contractions: regular, every 6 minutes Leaking: None Bleeding; none Preeclampsia signs and symptoms: None Active Hospital Problems Diagnosis labor Resolved Hospital Problems No resolved problems to display. Active Non-Hospital Problems Diagnosis History of rupture of uterus Previous delivery [...] mg by mouth daily. vitamin 27 & ecgtvjv-gtcj-RM 60 mg iron-1 mg Tablet Take 1 [...] no vitals taken for this visit. Physical Exam: Gen: AAO, resting comfortably Cardiovascular: normal effort of breathing Abd: soft, NT, ND, gravid Ext: warm, well-perfused, no BRANDI or calf tenderness Neuro: grossly intact Uterine Size: S=D Clinical EFW: 4.5lb Initial Cervical Exam: 03/18/23 0.5/20/-3 @ 00:45 Interval Cervix Exam: Dilation: 0.5 (03/18/23 0231) Effacement: 20 Station: -3 OB Examiner: Lyric Malave Pelvis: average Presentations: Cephalic on BSUS, no gross rupture Heart Rate Interpretation: Baseline: 130, Variability: moderate, Accels: yes, Decels: none, [place]: q2-3 Category: I Record Review Labs Lab Results Component Value Date ABORH A Pos 11/20/2022 HCT 32.9 (L) 03/18/2023 HGB 11.3 (L) 03/18/2023 MCV 87.3 03/18/2023 AST 13 11/20/2022 Most Recent Ultrasound Date: 02/19/23 GA at US: 28w6d by US 11/17/22 EFW: 1513 g 3 lb 5 oz 91%tile Growth appropriate for gestational age Amniotic fluid volumenormal Placenta posterior Presentation cephalic Assessment & Plan Isabel Julian is a 27 y.o. at 32w5d gestation being admitted for threatened labor inthe setting of 1.2mm lower uterine segment with Hx x2. After initial examination and 500 ml bolus hydration, the patient continued to report painful contractions and they were seen on toco q2-3 minutes. She did not have any alarm symptoms such as continuous pain. She was markedly hungry, so we made a plan for clear liquids and observation. Because she has continued to contract, we will give betamethasone. If contractions resolve, we can consider discharge with follow up, but if they persist we can consider progression to delivery with bilateral tubal ligation. Consents were reviewed and signed with the patient. #Threatened labor #Hx CS x2 with uterine window at second #1.2 mm lower uterine segment -Labs: CBC, T&S, UA -Delivery indications:progressive labor, suspected uterine rupture, if threatened labor resolves there is a planned delivery at 36w0d 04/12 -Tocolysis: consider if continued contractions -GBS status: NA, planned - status: NSTonce daily -Steroid status: BMZ#1 03/18/23, BMZ#2 03/19/23, anticipated BMZ complete 03/20/23 -Magnesium for neuro protection: NA -Consultations: neonatology, social work due to transportation insecurity, Fide Mc is current ride [phone] -Consents obtained: CS with BS, federal consent 11/30/22, opioids - Hemorrhage Risk: High This patient was seen and discussed with Dr. Barron, Attending SALESFORCE BUSINESS ANALYST. Lyric Garber, 03/18/2023 Associated attestation - Samuel Barron MD - 03/18/2023 1:04 PM EDT I have seen and evaluated the patient and reviewed the above history with Dr. Garber. I agree with thedetails as written. The assessment and plan were formulated in discussion with me and I agree with them as documented. 27 year old who presents with contractions in the setting of two prior CS (second with uterine window) and thin lower uterine segment on prior US. Past medical and surgical hx reviewed as outlined. VS reviewed. Pt appears well and is conversant but describes contractions as regular and moderate intensity which have not subsided over the course of her day or since arrival to the hospital. Abdomen is soft and non-tender. NST reactive and documented elsewhere. Agree with plan for hydration and observation. If contractions subside then no further intervention may be needed but if contractions persist theninitiation of BMZ course may be warrented given overall clinical picture. Discussed consent for CS given possible need for delivery during this admission. SAMUEL BARRON MD documented in this encounter Miscellaneous Notes * Initial Assessments - Charlotte Chatterjee RN - 03/18/2023 10:30 AM EDT OFFICE OF CARE MANAGEMENT/ux engineer Isabel Julian is a 27 y.o. at 32w5d weeks gestation. She has been admitted secondary to threatened labor in the setting of 1.2mm lower uterine segment with Hx x2. Per conversation with AUTOMATIC DISPENSER MECHANIC, she will be meeting with patient to offer support and will complete Initial Assessment for patient. RNCM will remain available throughout patient's admission to assist with any discharge planning needs. Charlotte Chatterjee RN Case Manager [facility] and covering for Pedi/PICU/ICN [phone] Pager [phone] * Consult Note - Jose Mcdonald MD - 03/18/2023 9:10 AM EDT Requested by Rima MENESES to provide a consult to Isabel Julian and discuss the anticipated evaluation and management of an infant born at 32 weeks gestation. Isabel is a 27 y/o G 4 P 2 A+/Ab neg/Rubella immune/HBsAg neg/HIV neg/Syphilis unknown/GBS unknown/GC neg/Chlamydia neg women at 32 weeks gestation and admitted to the [facility] due to labor in setting of thin lower uterine segment. Her has been complicated by: Hx CS x2 with thin lower uterine segment doted at time of second . Plan 04/12 with BMZ 04/07 and 04/08. Lower uterine segment 1.2mm-1.5mm at the thinnest 02/19/23 (image below). Notch atprior CS scar site 3mm 12/25/22. Placenta posterior. Desires sterilization at time of repeat TUD: began at 2 PPD and now down to 1/2 PPD. Declines nicotine patches while inpatient due to reaction to adhesive. I met with Isabel. She is anticipating the of a daughter. We discussed that parents are considered to be part of the care team and are welcome in the ICN at all times. We discussed the general care and management of an infant born at 32 weeks gestation, including RDS, feeding immaturity, thermoregulatory immaturity, apnea of prematurity. We also discussed the potential need for procedures including intubation. She had no further questions, and I reassured them that a member of the ICN team would be availableto come back and address any further questions regarding the care of their son/daughter Jose Mcdonald MD 03/18/2023 documented in this encounter Plan of Treatment Not on file documented as of this encounter Procedures Procedure Name Priority Date/Time Associated Diagnosis Comments URINALYSIS WITH REFLEX CULTURE Routine 03/18/2023 2:35 AM EDT TYPE AND SCREEN VALIDITY Routine 03/18/2023 1:50 AM EDT ABORH RECHECK STATUS Routine 03/18/2023 1:50 AM EDT HEMOGRAM Routine 03/18/2023 1:50 AM EDT DIFFERENTIAL, AUTOMATED Routine 03/18/2023 1:50 AM EDT ABO/RH TYPING Routine 03/18/2023 1:50 AM EDT CBC (WITH DIFF) Routine 03/18/2023 1:50 AM EDT ANTIBODY SCREEN Routine 03/18/2023 1:50 AM EDT TYPE AND SCREEN ([facility]/SHANTEL) Routine 03/18/2023 1:50 AM EDT documented in this encounter Results * (ABNORMAL) Urinalysis with reflex Culture (03/18/2023 2:35 AM EDT) Glucose, Urine Dipstick Negative Negative mg/dL [facility] Protein, Urine Dipstick Negative Negative mg/dL [facility] Bilirubin, Urine Dipstick Negative Negative mg/dL [facility] Comment: Clinical correlation required for positive Urine Bilirubin results as false positive may occur with some drugs and drug related products. If a false positive is suspected a serum total bilirubin should be considered if clinically indicated. Urobilinogen, Urine Dipstick Normal Normal mg/dL [facility] pH, Urn (dipstick) 7.0 5.0 - 8.0 [facility] Blood, Urine Dipstick Negative Negative mg/dL [facility] Ketone, Urine Dipstick 15(A) Negative mg/dL [facility] Nitrite, Urine Dipstick Negative Negative [facility] Leukocytes, Urine Dipstick Negative Negative mcL [facility] Appearance, Urine Dipstick Clear Clear [facility] Specific [place] Urine Automated 1.008 1.005 - 1.030 [facility] Color, Urine Dipstick Yellow Yellow [facility] Reflex to Culture No [facility] Clean Catch Urine 03/18/2023 2:35 AM EDT 03/18/2023 2:45 AM EDT Narrative Resulting Agency Comment Spec In Lab Samuel Barron MD URINE ORDERABLES Performing Organization Address [facility] Co de Phone Number [facility] [place] [address] * Type and Screen Validity (03/18/2023 1:50 AM EDT) T&S only valid at [facility] LABORATORY Comment:This Type and Screen result is only valid at the [facility] Blood 03/18/2023 1:50 AM EDT 03/18/2023 2:06 AM EDT Narrative Resulting Agency Comment Spec In Lab Lyric Garber DO BLOOD BANK LAB ORDER SHABNAM Performing Organization Address City/[facility]/[place] [address] * ABORH Recheck Status (03/18/2023 1:50 AM EDT) ABORH Type Recheck Completed [facility] Blood 03/18/2023 1:50 AM EDT 03/18/2023 2:06 AM EDT Narrative Resulting Agency Comment Spec In Lab Lyric Garber DO [place]LOOD [place] [address] * (ABNORMAL) Differential, Automated (03/18/2023 1:50 AM EDT) Neutrophil % 65.0 % [facility] Neutrophil Absolute 7.31(H) 1.70 - 6.10 x10(3)/mc L [facility] Lymph % 24.9 % [facility] Lymphocytes Abs 2.8 0.9 - 3.2 x10(3)/mc L [facility] Monocyte % 7.6 % [facility] Monocyte Abs 0.9 0.3 - 0.9 x10(3)/mc L [facility] Eos % 0.6 % [facility] Eosinophils Abs 0.1 0.0 - 0.4 x10(3)/mc L [facility] Basophil % 0.4 % [facility] Baso Absolute 0.0 0.0 - 0.1 x10(3)/mc L [facility] Immature Gran % 1.50 % [facility] Comment: Immature granulocytes(IG's)percentage and absolute count will include metamyelocytes, myelocytes, and promyelocytes. Blood smears from CBCs yielding IG's will be scanned manually for concordance. If this scan disagrees with the automated IG or if promyelocytes are noted, a manual differential will be performed. Immature Gran Absolute 0.17(H) 0.00 - 0.04 x10(3)/mc L [facility] Blood 03/18/2023 1:50 AM EDT 03/18/2023 2:10 AM EDT Narrative Resulting Agency Comment Spec In Lab Lyric Garber DO HEMATOLOGY ORDERABLE S [facility] [place] [address] * (ABNORMAL) Hemogram (03/18/2023 1:50 AM EDT) White Blood Cell 11.3(H) 4.0 - 9.5 x10(3)/mc L [facility] Red Blood Cell 3.77(L) 4.00 - 5.21 x10(6)/mc L [facility] Hemoglobin 11.3(L) 11.7 - 15.5 g/dL [facility] Hematocrit 32.9(L) 35.7 - 45.8 % [facility] Mean Cell Volume 87.3 82.6 - 94.4 fL [facility] Mean Cell Hemoglobin 30.0 27.1 - 32.0 pg [facility] Mean Cell Hemoglobin Concentration 34.3 31.7 - 35.0 g/dL [facility] Platelet 130(L) 145 - 357 x10(3)/mc L [facility] RDW Standard Deviation 40.3 37.0 - 46.0 fL [facility] RDW coefficient of variation 12.8 11.5 - 14.1 % [facility] Mean Platelet Volume 13.0(H) 7.6 - 12.9 fL [facility] NRBC% auto 0.0 % [facility] NRBC Absolute 0.000 0.000 - 0.000 x10(3)/ L [facility] Blood 03/18/2023 1:50 AM EDT 03/18/2023 2:10 AM EDT Narrative Resulting Agency Comment Spec In Lab Lyric Garber DO HEMATOLOGY ORDERABLE S [facility] [address] * Antibody screen (03/18/2023 1:50 AM EDT) Ab Screen Interp Negative [facility] Expires at 2359 on: 03/21/2023 [facility] Blood 03/18/2023 1:50 AM EDT 03/18/2023 2:06 AM EDT Narrative Resulting Agency Comment Spec In Lab Lyric Garber DO BLOOD BANK LAB ORDER SHABNAM [facility] [address] * ABO/Rh Typing (03/18/2023 1:50 AM EDT) ABORH Type A Pos [facility] Blood 03/18/2023 1:50 AM EDT 03/18/2023 2:06 AM EDT Narrative Resulting Agency Comment Spec In Lab Lyric Garber DO BLOOD BANK LAB ORDER SHABNAM Performing Organization Address City/[facility] [place] [address] documented in this encounter Visit Diagnoses Diagnosis labor- Primary Early onset of delivery, unspecified as to episode of care documented in this encounter Admitting Diagnoses Diagnosis labor Early onset of delivery, unspecified as to episode of care documented in this encounter Administered Medications Inactive Administered Medications - up to 3 most recent administrations Medication Order MAR Action Action Date Dose Rate Site betamethasone acetate-betamethasone sodium phosphate (Celestone) (6 mg/mL) injection 12 mg 12 mg, Intramuscular, EVERY 24 HOURS, 2 doses, First dose on Wed03/18/23 at 0400, Last dose on Wed03/19/23 at 0400, Routine Given 03/18/2023 3:26 AM EDT 12 mg Left Quadriceps lactated Ringers 500 mL IV bolus Intravenous, ONCE, 1 dose, On Mavis 03/18/23 at 0145 New Bag 03/18/2023 1:41 AM EDT pantoprazole EC (Protonix) tablet 40 mg 40 mg, Oral, DAILY, First dose on Wed03/18/23 at 0900, Until Discontinued, DO NOT CRUSH OR OPEN, Routine Given 03/18/2023 10:23 AM EDT 40 mg pediatric multivitamin chewable tablet Tablet, Chewable 1 tablet 1 tablet, Oral, DAILY, First dose on Mavis 03/18/23 at 0900, Until Discontinued, Routine Given 03/18/2023 10:23 AM EDT 1 tablet documented in this encounter Active and Recently Administered Medications Times are shown in EDT. Scheduled Medication Order 03/16/2023 03/17/2023 03/18/2023 betamethasone acetate-betamethasone sodium phosphate (Celestone) (6 mg/mL) injection 12 mg 12 mg, Intramuscular, EVERY 24 HOURS, 2 doses, First dose on Wed03/18/23 at 0400, Last dose on Wed03/19/23 at 0400, Routine 0326 (Given - Provid er: Mary Malik RN) lactated Ringers 500 mL IV bolus (COMPLETED) Intravenous, ONCE, 1 dose, On Wed03/18/23 at 0145 0141 ([facility] Bag - Prov ider: Mary Malik RN) pantoprazole EC (Protonix) tablet 40 mg 40 mg, Oral, DAILY, First dose on Wed03/18/23 at 0900, Until Discontinued, DO NOT CRUSH OR OPEN, Routine 1023 (Given - Provid er: Tejal Miles RN) pediatric multivitamin chewable tablet Tablet, Chewable 1 tablet 1 tablet, Oral, DAILY, First dose on Wed03/18/23 at 0900, Until Discontinued, Routine 1023 (Given - Provid er: Tejal Miles RN) sodium chloride 0.9 % (flush) (BD PosiFlush Normal Saline 0.9) flush 5 mL 5 mL, Intravenous, 2 TIMES DAILY, First dose on Wed03/18/23 at 0900, Until Discontinued, Routine 0900 (Due) PRN Medication Order 03/16/2023 03/17/2023 03/18/2023 acetaminophen (Tylenol) tablet 325 mg 325 mg, Oral, EVERY 4 HOURS PRN, Starting on Wed03/18/23 at 0303, Until Wed03/18/23 at 1257, Pain, mild pain (1-3), Maximum dose of acetaminophen is 4,000 mg from all sources in 24 hours. When ordered for pain, acetaminophen should be given even when other ordered pain medications are indicated., Routine calcium carbonate (TUMS) chewable tablet 1,000 mg 1,000 mg (2 tablet), Oral, EVERY 4 HOURS PRN, Starting on Mavis 03/18/23 at 0303, Until Mavis 03/18/23 at 1257, Heartburn, If both calcium carbonate (Tums) and alum-mag hydroxide-simeth (Maalox) ordered, administer calcium carbonate (Tums) first, if ineffective administer alum-mag hydroxide-simeth (Maalox)., Routine docusate sodium (Colace) capsule 100 mg 100 mg, Oral, 2 TIMES DAILY PRN, Starting on Mavis 03/18/23 at 0303, Until Mavis 03/18/23 at 1257, Constipation, If multiple PRN bowel medications ordered, start with ducusate, then magnesium citrate. Multiple medications may be given concomitantly for constipation., Routine lidocaine (Xylocaine) 1% (10 mg/mL) injection 3 mg 3 mg (0.3 mL), Subcutaneous, ONCE PRN, 1 dose, Starting on Mavis 03/18/23 at 0303, Until Mavis 03/18/23 at 1257, for discomfort with PIV insertion, Routine magnesium citrate oral liquid 296 mL 296 mL, Oral, DAILY PRN, Starting on Mavis 03/18/23 at 0303, Until Mavis 03/18/23 at 1257, Constipation, If multiple PRN bowel medications ordered, start with ducusate, then magnesium citrate. Multiple medications may be given concomitantly for constipation., Routine ondansetron (pf) (Zofran) (2 mg/mL) injection 4 mg 4 mg, Intravenous, EVERY 8 HOURS PRN, Starting on Mavis 03/18/23 at 0303, Until Mavis 03/18/23 at 1257, Nausea, Vomiting, May repeat in 30 minutes if inefffective oxytocin (Pitocin) (0.06 units/mL) in sodium chloride 0.9% 500 mL infusion 30 Units (500 mL), Intravenous, Administer over 1 Hours, ONCE PRN, 1 dose, Starting on Mavis 03/18/23 at 0303, Until Mavis 03/18/23 at 1257, At the discretion of the provider following delivery., . , Routine sodium chloride 0.9 % (flush) (BD PosiFlush Normal Saline 0.9) flush 5-20 mL 5-20 mL, Intravenous, EVERY 1 MIN PRN, Starting on Mavis 03/18/23 at 0303, Until Mavis 03/18/23 at 1257, flush, Flush pertains to all indwelling lines. Flush per protocol found in the job aid using the link provided on this medication record., Routine documented in this encounter Care Teams Auto Top Mechanic Relationship Specialty Start Date End Date Analisa Martinez PA [address] [place] [address] PCP - General 11/30/22 documented as of this encounter
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
--- OUTSIDE RECORDS SUMMARY | 2024-05-04 18:59 | XMS_ITS | Encounter Summary ---
Author Organization [facility] Address [facility] [place] [address] Care Team Providers Care Tower Air Traffic Control Specialist Name Role Phone Analisa Martinez Primary Care Provider [phone] Reason for Visit * Reason Comments Routine Visit Encounter Details Date Type Department Care Team (Late st Contact Info) Description 03/22/2023 4:00 PM EDT Routine Obstetrics [place] [address] Nitza Murguia MD [facility] DR OBSTETRICS [place] [address] GA: 33w2d Social History Tobacco Use Types Packs/Day Years [...] Sign Reading Time Taken Comments Blood Pressure 124/62 03/22/2023 4:13 PM EDT Pulse - - Temperature - - Respiratory Rate - - Oxygen Saturation - - Inhaled Oxygen Concentration - - Weight 99.1 kg (218 lb 8 oz) 03/22/2023 4:13 PM EDT Height - - Body Mass Index 38.72 03/18/2023 4:00 AM EDT documented in this encounter Progress Notes * Nitza Murguia MD - 03/22/2023 4:00 PM EDT Maternal Medicine follow up visit Patient Active Problem List Diagnosis Code Previous delivery affecting O34.219 History of rupture of uterus Z87.828 labor O60.00 CHEVY 05/08/23 at 33w2d week's gestation Chief complaint: clinic follow up Subjective: She had a brief hospitalization a few days ago to rule out labor. She had a course of steroids Objective: Patient Vitals for the past 24 hrs: BP 03/22/23 1613 124/62 Appears well Cheerful Abdomen soft, nontender Ext no edema Ultrasound Bedside: active fetus AMILCAR 16 cephalic Assessment: Prior uterine dehiscence with plan for delivery 36-37 weeks. Has had steroids Plan: RCS scheduled already 04/12 RTC 2 weeks Nitza Murguia MD 03/22/2023 documented in this encounter Plan of Treatment Not on file documented as of this encounter Visit Diagnoses Diagnosis Previous delivery affecting Previous delivery, unspecified as to episode of care or not applicable History of rupture of uterus Personal history of other genital system and obstetric disorders documented in this encounter Care Teams Tower Air Traffic Control Specialist Relationship Specialty Start Date End Date Analisa Martinez [place] [address] PCP - General 11/30/22 documented as of this encounter
--- OUTSIDE RECORDS SUMMARY | 2024-05-04 18:59 | XMS_ITS | Encounter Summary ---
Author Organization [facility] Address [facility] [place] [address] Care Team Providers Care Umbrella Frame Maker Name Role Phone Analisa Martinez Primary Care Provider [phone] Encounter Details Date Type Department Care Team (Latest Contact Info) Description 12/25/2022 7:58 AM EDT - 12/25/2022 11:59 PM EDT Hospital [place] [address] Tan Sanches MD [facility] OBSTETRICS [place] [address] Previous delivery affecting , antepartum; Dehiscence of old uterine scar with extension before onset of labor, delivered Discharge Disposition: Home Social History Tobacco Use [...] by mouth daily. 05/24/2023 vitamin 27 & [id number] 60 mg iron-1 mg Tablet Take 1 tablet by mouth daily. 05/24/2023 documented as of this encounter Plan of Treatment Not on file documented as of this encounter Procedures Procedure Name Priority Date/Time Associated Diagnosis Comments US OB DETAILED MORPHOLOGY Routine 12/25/2022 8:52 AM EDT Previous delivery affecting , antepartum Dehiscence of old uterine scar with extension before onset of labor, delivered documented in this encounter Results * US OB Detailed Morphology (12/25/2022 8:52 AM EDT) Anatomical Region Laterality Modality Pelvis, Abdomen Ultrasound 12/25/2022 8:38 AM EDT Impressions 12/25/2022 11:24 AM EDT 2nd Trimester - Detailed Morphology - Summary Single intrauterine with a gestational age of 20w 6d based on Previous Ultrasound ??(11/17/22) Composite age based on the current ultrasound alone is 20w 3d. Current growth parameters are consistent with prior dating indicating normal growth. Amniotic fluid volume is subjectively normal for gestational age. Transvaginal done for evaluation of the lower uterine segment thickness. 3mm thick in the thinnest area. Detailed anatomic evaluation was performed and no structural abnormalities are noted. Thank you for letting us participate in the care of this patient. If you are a health care provider and have any questions regarding this report, please contact the number above. For patients who have questions, please contact the health care management associate that requested your imaging first. ? Monika Lindsay, Staff Physician Electronically Signed Final Report ?? 12/25/2022 11:23 am Narrative 12/25/2022 11:24 AM EDT OBSTETRICS REPORT ?(Signed Final 12/25/2022 11:23 am) PATIENT INFO: ID #: ? [id number] ?: ??[birth year] (27 yrs)(F) Name: ? DENISE JULIAN ? Visit Date: 12/25/2022 08:38 am PERFORMED BY: Performed By: ? Marcela Edward RDMS Attending: ?Monika Lindsay MD Referred By: ?TAN SANCHES Location: ? [facility] SERVICE(S) PROVIDED: [facility] - Detailed Morphology - [id number] ? [id number] UOBTVCER - Transvaginal ??2nd Trimester - ?51562 Cervical Length - [id number] INDICATIONS: 20 weeks gestation of ?Z3A.20 History of uterine window at time of c/section. ??Please evaluate thickness of lower uterine segment. ??Possible Lupus TECHNIQUE/SCAN QUALITY: Technique: ?? Transducer ID#: 5 EVALUATION: Num Of Fetuses: ? 1 Heart Rate(bpm): ??143 Cardiac Activity: ? Observed, normal rhythm Presentation: ? Cephalic Placenta: ? Posterior P. Cord Insertion: ?Within Normal Limits Amniotic Fluid AMILCAR FV: ?Subjectively normal for gestational age --------- BIOMETRY: --------- BPD: ?47.0 ??mm ? G.Age: ?? 20w 1d OFD: ?61.1 ??mm HC: ?175.6 ??mm ? G.Age: ?? 20w 0d AC: ?160.8 ??mm ? G.Age: ?? 21w 1d FL: ? 32.7 ??mm ? G.Age: ?? 20w 1d HUM: ?32.9 ??mm ? G.Age: ?? 21w 0d CER: ?20.6 ??mm ? G.Age: ?? 19w 4d NFT: ?4.93 ??mm NB: ?5.4 ??mm LV: ?5.5 ??mm CM: ?3.8 ??mm CI: ?76.9 ??% ? 70 - 86 FL/HC: ? 18.6 ??% ? 15.9 - 20.3 HC/AC: ? 1.09 ?1.06 - 1.25 FL/BPD: ?69.6 ??% FL/AC: ? 20.3 ??% ? 20 - 24 Est. FW: ? 368 ??gm ?0 lb 13 oz GESTATIONAL AGE: Clinical CHEVY: ??19w 1d ?CHEVY: ?? 05/20/23 U/S Today: ? 20w 3d ?CHEVY: ?? 05/11/23 Best: ?20w 6d ?? Det. By: ??Previous ? CHEVY: ?? 05/08/23 ? Ultrasound ? (11/17/22) TARGETED ANATOMY: Central Nervous System Calvarium/Cranial V.: ??Within Normal Limits Intracranial Kathy: ? Within Normal Limits Cavum: ? Within Normal Limits Parenchyma: ?Within Normal Limits Lateral Ventricles: ?Within Normal Limits Choroid Plexus: ?Within Normal Limits Cereb./Vermis: ? Within Normal Limits Cisterna Magna: ?Within Normal Limits Midline Falx: ?Within Normal Limits Spine Cervical: ?Visualized Thoracic: ?Visualized Lumbar: ?Visualized Sacral: ?Visualized Shape/Curvature: ? Visualized Head/Neck Face: ?Within Normal Limits Lips: ?Within Normal Limits Neck: ?Within Normal Limits Nuchal Fold: ? Within Normal Limits Nasal Bone: ?Present Profile: ? Visualized Orbits/Eyes: ? Visualized Mandible: ?Visualized Maxilla: ? Visualized Thorax Thoracic Contour: ?Within Normal Limits Lungs: ? Visualized 4 Chamber View: ?Within Normal Limits Cardiac Activity: ?Normal Rhythm Rt Outflow Tract: ?Visualized Lt Outflow Tract: ?Visualized Aortic Arch: ? Visualized Ductal Arch: ? Visualized SVC: ? Visualized Cardiac [place]: ?Visualized Diaphragm: ? Visualized 3 Vessel View: ? Visualized 3 V Trachea View: ?Visualized IVC: ? Visualized Crossing: ?Visualized Abdomen Ventral Wall: ?Visualized Cord Insertion: ?Visualized Situs: ? Normal Stomach: ? Visualized Liver: ? Visualized Lt Kidney: ? Visualized Rt Kidney: ? Visualized Bladder: ? Visualized Bowel: ? Visualized Extremities Lt Humerus: ?Within Nomal Limits Rt Humerus: ?Within Normal Limits Lt Forearm: ?Within Normal Limits Rt Forearm: ?Within Normal Limits Lt Hand: ? Within Normal Limits Rt Hand: ? Within Normal Limits Lt Femur: ?Within Normal Limits Rt Femur: ?Within Normal Limits Lt Lower Leg: ?Within Normal Limits Rt Lower Leg: ?Within Normal Limits Lt Foot: ? Visualized Rt Foot: ? Visualized Other Umbilical Cord: ?3 vessel cord Genitalia: ? Female CERVIX UTERUS ADNEXA: Right Ovary Not visualized Left Ovary Not visualized Procedure Note Kate Lindsay MD - 12/25/2022 OBSTETRICS REPORT (Signed Final 12/25/2022 11:23 am) PATIENT INFO: ID #: [id number] : [birth year] (27 yrs)(F) Name: DENISE JULIAN Visit Date: 12/25/2022 08:38 am PERFORMED BY: Performed By: Marcela Edward RDMS Attending: Monika Lindsay MD Referred By: TAN SANCHES Location: [facility] SERVICE(S) PROVIDED: [facility] - Detailed Morphology - [id number] UOBTVCER - Transvaginal 2nd Trimester - 40550 Cervical Length - [id number] INDICATIONS: 20 weeks gestation of Z3A.20 History of uterine window at time of c/section. Please evaluate thickness of lower uterine segment. Possible Lupus TECHNIQUE/SCAN QUALITY: Technique: Transducer ID#: 5 EVALUATION: Num Of Fetuses: 1 Heart Rate(bpm): 143 Cardiac Activity: Observed, normal rhythm Presentation: Cephalic Placenta: Posterior P. Cord Insertion: Within Normal Limits Amniotic Fluid AMILCAR FV: Subjectively normal for gestational age --------- BIOMETRY: --------- BPD: 47.0 mm G.Age: 20w 1d OFD: 61.1 mm HC: 175.6 mm G.Age: 20w 0d AC: 160.8 mm G.Age: 21w 1d FL: 32.7 mm G.Age: 20w 1d HUM: 32.9 mm G.Age: 21w 0d CER: 20.6 mm G.Age: 19w 4d NFT: 4.93 mm NB: 5.4 mm LV: 5.5 mm CM: 3.8 mm CI: 76.9 % 70 - 86 FL/HC: 18.6 % 15.9 - 20.3 HC/AC: 1.09 1.06 - 1.25 FL/BPD: 69.6 % FL/AC: 20.3 % 20 - 24 Est. FW: 368 gm 0 lb 13 oz GESTATIONAL AGE: Clinical CHEVY: 19w 1d CHEVY: 05/20/23 U/S Today: 20w 3d CHEVY: 05/11/23 Best: 20w 6d Det. By: Previous CHEVY: 05/08/23 Ultrasound (11/17/22) TARGETED ANATOMY: Central Nervous System Calvarium/Cranial V.: Within Normal Limits Intracranial Kathy: Within Normal Limits Cavum: Within Normal Limits Parenchyma: Within Normal Limits Lateral Ventricles: Within Normal Limits Choroid Plexus: Within Normal Limits Cereb./Vermis: Within Normal Limits Cisterna Magna: Within Normal Limits Midline Falx: Within Normal Limits Spine Cervical: Visualized Thoracic: Visualized Lumbar: Visualized Sacral: Visualized Shape/Curvature: Visualized Head/Neck Face: Within Normal Limits Lips: Within Normal Limits Neck: Within Normal Limits Nuchal Fold: Within Normal Limits Nasal Bone: Present Profile: Visualized Orbits/Eyes: Visualized Mandible: Visualized Maxilla: Visualized Thorax Thoracic Contour: Within Normal Limits Lungs: Visualized 4 Chamber View: Within Normal Limits Cardiac Activity: Normal Rhythm Rt Outflow Tract: Visualized Lt Outflow Tract: Visualized Aortic Arch: Visualized Ductal Arch: Visualized SVC: Visualized Cardiac [place]: Visualized Diaphragm: Visualized 3 Vessel View: Visualized 3 V Trachea View: Visualized IVC: Visualized Crossing: Visualized Abdomen Ventral Wall: Visualized Cord Insertion: Visualized Situs: Normal Stomach: Visualized Liver: Visualized Lt Kidney: Visualized Rt Kidney: Visualized Bladder: Visualized Bowel: Visualized Extremities Lt Humerus: Within Nomal Limits Rt Humerus: Within Normal Limits Lt Forearm: Within Normal Limits Rt Forearm: Within Normal Limits Lt Hand: Within Normal Limits Rt Hand: Within Normal Limits Lt Femur: Within Normal Limits Rt Femur: Within Normal Limits Lt Lower Leg: Within Normal Limits Rt Lower Leg: Within Normal Limits Lt Foot: Visualized Rt Foot: Visualized Other Umbilical Cord: 3 vessel cord Genitalia: Female CERVIX UTERUS ADNEXA: Right Ovary Not visualized Left Ovary Not visualized IMPRESSION 2nd Trimester - Detailed Morphology - Summary Single intrauterine with a gestational age of 20w 6d based on Previous Ultrasound (11/17/22) Composite age based on the current ultrasound alone is 20w 3d. Current growth parameters are consistent with prior dating indicating normal growth. Amniotic fluid volume is subjectively normal for gestational age. Transvaginal done for evaluation of the lower uterine segment thickness. 3mm thick in the thinnest area. Detailed anatomic evaluation was performed and no structural abnormalities are noted. Thank you for letting us participate in the care of this patient. If you are a health care provider and have any questions regarding this report, please contact the number above. For patients who have questions, please contact the health care management associate that requested your imaging first. Monika Lindsay, Staff Physician Electronically Signed Final Report 12/25/2022 11:23 am Tan Sanches MD IMG US OB ORDERABLES documented in this encounter Visit Diagnoses Diagnosis Previous delivery affecting , antepartum Previous delivery, antepartum condition or complication Dehiscence of old uterine scar with extension before onset of labor, delivered documented in this encounter Care Teams Umbrella Frame Maker Relationship Specialty Start Date End Date Analisa Martinez PA [address] [place] [address] PCP - General 11/30/22 documented as of this encounter
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
--- OUTSIDE RECORDS SUMMARY | 2024-05-04 18:59 | XMS_ITS | Encounter Summary ---
Author Organization [facility] Address [facility] [place] [address] Care Team Providers Care Supervisor Inspection Department Name Role Phone Analisa Martinez Primary Care Provider [phone] Encounter Details Date Type Department Care Team (Latest Contact Info) Description 03/31/2023 Travel Social History Tobacco Use Types Packs/Day [...] on filedocumented in this encounter Care Teams Supervisor Inspection Department Relationship Specialty Start Date End Date Analisa [place] [address] PCP - General 11/30/22 documented as of this encounter
--- OUTSIDE RECORDS SUMMARY | 2024-05-04 18:59 | XMS_ITS | Encounter Summary ---
Author Organization [facility] Address [facility] [place] [address] Care Team Providers Care Quality Compliance Coordinator Name Role Phone Analisa Martinez Primary Care Provider Encounter Details Date Type Department Care Team (Latest Contact Info) Description 11/30/2022 3:00 PM EST - 11/30/2022 11:59 PM [facility] Hospital En[place] [address] [facility] [place] [address] Back pain affecting in second trimester Discharge Disposition: Home Social History Tobacco Use [...] by mouth daily. 05/24/2023 vitamin 27 & [id number] 60 mg iron-1 mg Tablet Take 1 tablet by mouth daily. 05/24/2023 documented as of this encounter Plan of Treatment Not on file documented as of this encounter Procedures Procedure Name Priority Date/Time Associated Diagnosis Comments US OB LIMITED Routine 11/30/2022 3:41 PM EST Back pain affecting in second trimester documented in this encounter Results * US OB Limited (11/30/2022 3:41 PM EST) Anatomical Region Laterality Modality Pelvis, Abdomen Ultrasound 11/30/2022 3:34 PM EST Impressions 11/30/2022 3:52 PM EST 2nd Trimester Summary Single intrauterine with a gestational age of 17w 2d based on U/S (11/17/22 consistent with 15w3d) Composite age based on the current ultrasound alone is 17w 2d. Amniotic fluid volume is Appropriate for gestational age. Anatomical survey is limited due to early gestational age. ??There is a small fibroid on the left lateral/anterior uterus. ??The lower uterine segment is unremarkable. Thank you for letting us participate in the care of this patient. If you are a health care provider and have any questions regarding this report, please contact the number above. For patients who have questions, please contact the health child caregiver private home that requested your imaging first. ? Nitza Murguia, Revenue Field Auditor Electronically Signed Corrected Final Report ??11/30/2022 05:04 pm Narrative 11/30/2022 3:52 PM EST OBSTETRICS REPORT ? (Corrected Final 11/30/2022 05:04 pm) PATIENT INFO: ID #: ? [id number] ?: ??[birth year] (27 yrs)(F) Name: ? DENISE YOUNG ? Visit Date: 11/30/2022 03:34 pm PERFORMED BY: Performed By: ? Lima Cummins RDMS Attending: ?Shantal MENESES, Nitza Whittington Referred By: ?ROSA SANTIAGO Location: ? [place] SERVICE(S) PROVIDED: UOBLIM - Transabdominal - Maria - [id number] INDICATIONS: 17 weeks gestation of ?Z3A.17 15 weeks, pain in pelvis, hips and legs. Concerned that was told might have XI fibroid, h/o thin XI in after prior EVALUATION: Num Of Fetuses: ? 1 Heart Rate(bpm): ??151 Cardiac Activity: ? Observed, normal rhythm Presentation: ? Variable Placenta: ? Posterior P. Cord Insertion: ?Within Normal Limits Amniotic Fluid AMILCAR FV: ?Appropriate for gestational age --------- BIOMETRY: --------- BPD: ?37.4 ??mm ? G.Age: ?? 17w 3d OFD: ?46.7 ??mm HC: ?135.2 ??mm ? G.Age: ?? 17w 0d AC: ?112.7 ??mm ? G.Age: ?? 17w 1d FL: ? 24.2 ??mm ? G.Age: ?? 17w 2d HUM: ?22.0 ??mm ? G.Age: ?? 16w 5d LV: ?6.7 ??mm CI: ?80.1 ??% ? 70 - 86 FL/HC: ? 17.9 ??% ? 14.6 - 17.6 HC/AC: ? 1.20 ?1.07 - 1.29 FL/BPD: ?64.7 ??% FL/AC: ? 21.5 ??% ? 20 - 24 Est. FW: ? 184 ??gm ?0 lb 6 oz GESTATIONAL AGE: Clinical CHEVY: ??15w 4d ?CHEVY: ?? 05/20/23 U/S Today: ? 17w 2d ?CHEVY: ?? 05/08/23 Best: ?17w 2d ?? Det. By: ??Previous ? CHEVY: ?? 05/08/23 ? Ultrasound ? (11/17/22) -------- ANATOMY: -------- Cranium: ? Limited views Cavum: ? Limited views Ventricles: ?Visualized Choroid Plexus: ?Visualized Cerebellum: ?Limited views Posterior Fossa: ? Limited views Nuchal Fold: ? Limited Views Face: ?Not Visualized Lips: ?Not Visualized Palate: ?Not Visualized Thoracic: ?Within Normal Limits Heart: ? Limited Views RVOT: ?Not Visualized LVOT: ?Visualized Aortic Arch: ? Not visualized Ductal Arch: ? Limited views Diaphragm: ? Limited views Stomach: ? Visualized Abdomen: ? Limited Views Abdominal Wall: ?Not visualized Cord Vessels: ?3 Vessel Cord - WNL Kidneys: ? Limited views Bladder: ? Visualized Spine: ? Not Visualized Upper Extremities: ? Limited views Lower Extremities: ? Limited views Other: ??Nasal Bone: Present. Anatomy limited by ? early gestational age and maternal body ? habitus. CERVIX UTERUS ADNEXA: Uterus Small fibroid seen ??measuring 4.8 x 4.1 x 2.2cm. Right Ovary Not visualized Left Ovary Not visualized Procedure Note Nitza Murguia MD - 11/30/2022 OBSTETRICS REPORT (Corrected Final 11/30/2022 05:04 pm) PATIENT INFO: ID #: [id number] : [birth year] (27 yrs)(F) Name: DENISE JULIAN Visit Date: 11/30/2022 03:34 pm PERFORMED BY: Performed By: Lima Cummins RDMS Attending: Nitza Murguia MD Referred By: ROSA SANTIAGO Location: [place] SERVICE(S) PROVIDED: UOBLIM - Transabdominal - Maria - [id number] INDICATIONS: 17 weeks gestation of Z3A.17 15 weeks, pain in pelvis, hips and legs. Concerned that was told might have XI fibroid, h/o thin XI in after prior EVALUATION: Num Of Fetuses: 1 Heart Rate(bpm): 151 Cardiac Activity: Observed, normal rhythm Presentation: Variable Placenta: Posterior P. Cord Insertion: Within Normal Limits Amniotic Fluid AMILCAR FV: Appropriate for gestational age --------- BIOMETRY: --------- BPD: 37.4 mm G.Age: 17w 3d OFD: 46.7 mm HC: 135.2 mm G.Age: 17w 0d AC: 112.7 mm G.Age: 17w 1d FL: 24.2 mm G.Age: 17w 2d HUM: 22.0 mm G.Age: 16w 5d LV: 6.7 mm CI: 80.1 % 70 - 86 FL/HC: 17.9 % 14.6 - 17.6 HC/AC: 1.20 1.07 - 1.29 FL/BPD: 64.7 % FL/AC: 21.5 % 20 - 24 Est. FW: 184 gm 0 lb 6 oz GESTATIONAL AGE: Clinical CHEVY: 15w 4d CHEVY: 05/20/23 U/S Today: 17w 2d CHEVY: 05/08/23 Best: 17w 2d Det. By: Previous CHEVY: 05/08/23 Ultrasound (11/17/22) -------- ANATOMY: -------- Cranium: Limited views Cavum: Limited views Ventricles: Visualized Choroid Plexus: Visualized Cerebellum: Limited views Posterior Fossa: Limited views Nuchal Fold: Limited Views Face: Not Visualized Lips: Not Visualized Palate: Not Visualized Thoracic: Within Normal Limits Heart: Limited Views RVOT: Not Visualized LVOT: Visualized Aortic Arch: Not visualized Ductal Arch: Limited views Diaphragm: Limited views Stomach: Visualized Abdomen: Limited Views Abdominal Wall: Not visualized Cord Vessels: 3 Vessel Cord - WNL Kidneys: Limited views Bladder: Visualized Spine: Not Visualized Upper Extremities: Limited views Lower Extremities: Limited views Other: Nasal Bone: Present. Anatomy limited by early gestational age and maternal body habitus. CERVIX UTERUS ADNEXA: Uterus Small fibroid seen measuring 4.8 x 4.1 x 2.2cm. Right Ovary Not visualized Left Ovary Not visualized IMPRESSION 2nd Trimester Summary Single intrauterine with a gestational age of 17w 2d based on U/S (11/17/22 consistent with 15w3d) Composite age based on the current ultrasound alone is 17w 2d. Amniotic fluid volume is Appropriate for gestational age. Anatomical survey is limited due to early gestational age. There is a small fibroid on the left lateral/anterior uterus. The lower uterine segment is unremarkable. Thank you for letting us participate in the care of this patient. If you are a health care provider and have any questions regarding this report, please contact the number above. For patients who have questions, please contact the health child caregiver private home that requested your imaging first. Nitza Murguia, Revenue Field Auditor Electronically Signed Corrected Final Report 11/30/2022 05:04 pm Rosa Santiago MD IMG US OB ORDERABL ES documented in this encounter Visit Diagnoses Diagnosis Back pain affecting in second trimester documented in this encounter Care Teams Quality Compliance Coordinator Relationship Specialty Start Date End Date Analisa Martinez PA [address] [place] [address] PCP - General 11/30/22 documented as of this encounter
--- OUTSIDE RECORDS SUMMARY | 2024-05-04 18:59 | XMS_ITS | Encounter Summary ---
Author Organization [facility] Address [facility] [place] [address] Care Team Providers Care Er Registrar Name Role Phone Analisa Martinez Primary Care Provider [phone] Encounter Details Date Type Department Care Team (Latest Contact Info) Description 02/19/2023 Travel Social History Tobacco Use Types Packs/Day [...] on filedocumented in this encounter Care Teams Er Registrar Relationship Specialty Start Date End Date Analisa [place] [address] PCP - General 11/30/22 documented as of this encounter
--- OUTSIDE RECORDS SUMMARY | 2024-05-04 18:59 | XMS_ITS | Encounter Summary ---
[place] [address] Care Team Providers Care Carpet Installer Name Role Phone Analisa Martinez Primary Care Provider [phone] Encounter Details Date Type Department Care Team (Latest Contact Info) Description 02/19/2023 7:15 AM EDT Laboratory Appointment Lab [address] [place] [id number] Elevated glucose tolerance test Social History Tobacco Use Types Packs/Day Years [...] Procedure Name Priority Date/Time Associated Diagnosis Comments GLUCOSE TOLERANCE GESTATIONAL, 3 HOUR Timed 02/19/2023 10:29 AM EDT Elevated glucose tolerance test HC GLUCOSE TT 3HR Routine 02/19/2023 10: 29 AM EDT Elevated glucose tolerance test GLUCOSE TOLERANCE GESTATIONAL, 2 HOUR Timed 02/19/2023 9:35 AM EDT Elevated glucose tolerance test GLUCOSE TOLERANCE GESTATIONAL, 1 HOUR Timed 02/19/2023 8:33 AM EDT Elevated glucose tolerance test GLUCOSE TOLERANCE GESTATIONAL, FASTING Timed 02/19/2023 7:30 AM EDT Elevated glucose tolerance test ORAL GLUCOSE DOSE GESTATIONAL Timed 02/19/2023 7:30 AM EDT Elevated glucose tolerance test documented in this encounter Results * Glucose 3 Hr Gestational (02/19/2023 10:29 AM EDT) Glucose Tolerance Gestational, 3 Hour 95 65 - 139 mg/dL [facility] Blood 02/19/2023 10:2 9 AM EDT 02/19/2023 10:32 AM EDT Narrative Resulting Agency Comment Spec In Lab Nitza Murguia MD CHEMISTRY ORDERABLES Performing Organization Address City/[facility]/ZIP Co de Phone Number [facility] [place] [address] * Glucose 2 Hr Gestational (02/19/2023 9:35 AM EDT) Glucose Tolerance Gestational, 2 Hour 115 65 - 154 mg/dL [facility] Blood 02/19/2023 9:35 AM EDT 02/19/2023 9:40 AM EDT Narrative Resulting Agency Comment Spec In Lab Nitza Murguia MD CHEMISTRY ORDERABLES Performing Organization Address City/[facility]/ZIP Co de Phone Number [facility] [place] [address] * Glucose 1 Hr Gestational (02/19/2023 8:33 AM EDT) Gluc 1 Hr Gestational 160 65 - 179 mg/dL [facility] Blood 02/19/2023 8:33 AM EDT 02/19/2023 8:37 AM EDT Narrative Resulting Agency Comment Spec In Lab Nitza Murguia MD CHEMISTRY ORDERABLES Performing Organization Address City/[facility]/ZIP Co de Phone Number [facility] [place] [address] * Oral Glucose Dose Gestational (02/19/2023 7:30 AM EDT) Oral Glucose Dose 100 gm [facility] Blood 02/19/2023 7:30 AM EDT 02/19/2023 7:41 AM EDT Nitza Murguia MD CHEMISTRY ORDERABLES Performing Organization Address City/[facility] Co de Phone Number [facility] [place] [address] * Glucose Fasting Gestational (02/19/2023 7:30 AM EDT) Glucose Tolerance Gestational, Fasting 83 65 - 94 mg/dL [facility] Comment: Diagnosis of gestational diabetes mellitus requires that two or more glucose thresholds are exceeded in a single oral glucose tolerance test. Citation:, Gestational diabetes mellitus. Practice Bulletin No. 180. ACOG. Obstet Gynecol 2017;130:e17-31 Blood 02/19/2023 7:30 AM EDT 02/19/2023 7:41 AM EDT Narrative Resulting Agency Comment Spec In Lab Nitza Murguia MD CHEMISTRY ORDERABLES Performing Organization Address [facility] Co de Phone Number [facility] [place] [address] documented in this encounter Visit Diagnoses Diagnosis Elevated glucose tolerance test Impaired glucose tolerance test documented in this encounter Care Teams Carpet Installer Relationship Specialty Start Date End Date Analisa Martinez PA [address] [place] [address] PCP - General 11/30/22 documented as of this encounter
--- OUTSIDE RECORDS SUMMARY | 2024-05-04 18:59 | XMS_ITS | Encounter Summary ---
Author Organization [facility] [place] [address] Care Team Providers Care Directory Assistance Operator Name Role Phone Analisa Martinez Primary Care Provider [phone] Reason for Visit * Reason Comments Routine Visit Encounter Details Date Type Department Care Team (Late st Contact Info) Description 03/10/2023 4:30 PM EDT Routine Obstetrics [place] [address] Casey Armendariz MD [facility] [address] OBSTETRICS [place] [address] GA: 31w4d Social History Tobacco Use Types Packs/Day Years [...] Sign Reading Time Taken Comments Blood Pressure 122/60 03/10/2023 4:36 PM EDT Pulse - - Temperature - - Respiratory Rate - - Oxygen Saturation - - Inhaled Oxygen Concentration - - Weight 98.8 kg (217 lb 12.8 oz) 03/10/2023 4:36 PM EDT Height - - Body Mass Index 38.59 11/30/2022 4:24 PM EST documented in this encounter Progress Notes * Casey Armendariz MD - 03/10/2023 4:30 PM EDT 27 yo at 31w4d with prior c/s x2 and a noted thin lower uterine segment at the time of her 2nd c/section. Reports good activity. No bleeding. Continue abdominal discomfort. Bedside US = Cephalic. +FH. Subjectively normal amniotic fluid. Lower uterine segment myometrium measuring about 2.2 to 2.4cm in thinnest area. A/P: Scheduled for repeat c/section on 04/12. Plan beta methasone on 04/07 at previously scheduled appointment. Arrange 2nd dose of beta Methasone for 04/08. MD Michelle documented in this encounter Plan of Treatment Not on file documented as of this encounter Visit Diagnoses Diagnosis History of rupture of uterus Personal history of other genital system and obstetric disorders documented in this encounter Care Teams Directory Assistance Operator Relationship Specialty Start Date End Date Analisa [place] [address] PCP - General 11/30/22 documented as of this encounter
--- OUTSIDE RECORDS SUMMARY | 2024-05-04 18:59 | XMS_ITS | Encounter Summary ---
Author Organization [facility] Address [facility] [place] [address] Care Team Providers Care Production Material Coordinator Name Role Phone Analisa Martinez Primary Care Provider [phone] Encounter Details Date Type Department Care Team (Late st Contact Info) Description 03/18/2023 11:59 PM EDT Anesthesia [place] [address] Tami Jaramillo MD [facility] [place] [address] Anesthesia Record Procedure Summary Procedure Name Responsible Anesthesiologist Anesthesia Start Time Anesthesia Stop Time Anesthesia Labor Consult Events No events on file. Meds * Agents No agents on file. * Blood No blood administrations on file. Lines, Drains, and Airways No LDAs on file. documented in this encounter Social History Tobacco Use Types Packs/Day Years [...] on file documented as of this encounter OR Notes * Anesthesia Preprocedure Evaluation - Tami Jaramillo MD - 03/18/2023 2:56 AM EDT Images from the original note were not included. Pre-Anesthesia Evaluation for: Isabel fan 27 y.o. female. Procedure(s): @ DELIVERY (WRVU 16.13) Patient Active Problem List Diagnosis Date Noted History of rupture of uterus 03/14/2023 Previous delivery affecting 02/24/2023 Past Medical History: Diagnosis Date Asthma Past Surgical History: Procedure Laterality Date SECTION SECTION Social History Tobacco Use Smoking status: Every Day Packs/day: 0.50 Types: Cigarettes Smokeless tobacco: Never Tobacco comments: Cut back from 2 packs Substance Use Topics Alcohol use: Not Currently Social History Substance and Sexual Activity Drug Use Never Allergies Allergen Reactions Environmental [Latex, Natural Rubber] Rash Penicillins Varicella Vaccines Hives Medications: MAR and/or home medications have been reviewed. Physical Exam: Preprocedure Vitals Current as of 03/18/23 0256 No BP, pulse, respiration, SpO2, or temperature recorded. Height: 160 cm (5' 2.99) (11/30/22) Weight: 98.8 kg (217 lb 12.8 oz) (03/10/23) BMI: 38.59 IBW: 52.4 kg (115 lb 7.7 oz) Airway Assessment: Mallampati: III TM distance: >3 FB Neck ROM: full Cardiovascular Assessment: system normal Pulmonary Assessment: pulmonary exam normal Dental Assessment: Misc Assessment: IV access: Peripheral line Last Filed Perioperative Cognitive Screening None Anesthesia Plan: ASA 2 CSE, Pt interviewed and examined. Pt is a 27 y.o. female who is and 32w5d here for monitoring inthe setting of thin lower uterine segment. Plan for repeat Medical history, medications, allergies, and social history reviewed, significant for every day smoker, GERD, anxiety, hx of uterus rupture in second . Labs reviewed and listed below. No contraindication to a neuraxial technique. Consent obtained. Risk, benefits discussed; questions answered. Allergies/ADR: Allergies Allergen Reactions ?? Environmental [Latex, Natural Rubber] Rash ?? Penicillins ?? Varicella Vaccines Hives Personal history of problems with anesthesia: denies Family history of anesthesia problems: denies Bleeding Disorder: denies Asthma: denies HTN: denies Prior back surgeries/pathology: denies LE numbness/weakness: denies Lab Results Component Value Date/Time HGB 11.3 (L) 03/18/2023 01:50 AM PLATELET 130 (L) 03/18/2023 01:50 AM Type and Screen: Lab Results Component Value Date ABORH A Pos 11/20/2022 Discussed potential need for labor analgesia and/or anesthesia to possibly include epidural, spinal, CSE, and anesthesia for (which includes all of the above with the addition of general anesthesia). Answered all questions, consent obtained and placed in patient's chart. Tami Jaramillo MD Informed Consent: Anesthesia Screening documented in this encounter Plan of Treatment Not on file documented as of this encounter Visit Diagnoses Not on filedocumented in this encounter Care Teams Production Material Coordinator Relationship Specialty Start Date End Date Analisa Martinez PA [address] [place] [address] PCP - General 11/30/22 documented as of this encounter
--- OUTSIDE RECORDS SUMMARY | 2024-05-04 18:59 | XMS_ITS | Encounter Summary ---
Author Organization [facility] [place] [address] Care Team Providers Care Test Development Engineer Name Role Phone Analisa Martinez Primary Care Provider [phone] Reason for Visit * Auth/Cert (Routine) Specialty Diagnoses / Procedures Referred By Contac t Referred To Contact Diagnoses prrior with window Procedures PRO DELIVERY ONLY ER OBSVO Sujata Prater MD [facility] OBSTET[place]ICS [place] [address] RUST Referral ID Status Reason Start Date Expiration Date Visits Re quested Visits Authorized [id number] 1 1 Encounter Details Date Type Department Care Team (Late st Contact Info) Description 04/12/2023 1:00 PM EDT - 04/12/2023 3:22 PM [place] [id number] Mary Headley MD [facility] OBSTET[place] [address] @ DELIVERY (WRVU 16.13) Social History Tobacco Use Types Packs/Day Years [...] Reading Time Taken Comments Blood Pressure 113/56 04/12/2023 10:40 AM EDT Pulse 90 04/12/2023 10:40 AM EDT Temperature 36.5 ??C (97.7 ??F) 04/12/2023 10:40 AM E DT Respiratory Rate 16 04/12/2023 10:40 AM EDT Oxygen Saturation 93% 04/12/2023 10:41 AM EDT Inhaled Oxygen Concentration - - Weight - - Height - - Body Mass Index - - documented in this encounter Discharge Summaries * Maria Teresa Dhillon MD - 04/15/2023 2:39 PM EDT Discharge Summary Patient Name: Denise Julian Patient Age: 27 y.o. Language: Mozambican Race: White Ethnicity: Not nor Admit date: 04/12/2023 Discharge date and time: 04/15/2023 Attending Physician: Mary Headley MD Discharge Physician: Dr. Fide Haas Care Provider: [facility] Referring Hospital: N/A Follow-up Recommendations for Providers: - 2 week mood check - 6 week visit Inpatient Provider Contact Information: [facility] BREAD WRAPPER Department, Discharge Diagnoses (Hospital Problems) and Secondary [...] pumping for feeding of her in the N. Patient is s/p bilateral salpingectomy for contraception. [...] Delivery Information Information for the patient's : Rajesh Julian Girl [[id number]] INFORMATION Rajesh Julian 04/12/2023 4:21 PM by Lower Segment Transverse Sex: female Gestational Age: 36w2d Measurements: Weight: 6 lb 5.9 oz (2890 [...] as: Protonix Refills: 0 vitamin 27 & xcnvzxt-lemj-KQ 60 mg iron-1 mg Tablet Take 1 [...] Instructions: Scheduling Instructions: Comments: Denise Julian [address] [place] [address] [facility] [id number] 's : 04/12/23 Insurance: [place] Payor Plan Address Payor Plan Phone Number Payor Plan Fax Number Effective Dates [address] 01/25/2023 - None Entered [facility] [phone] Subscriber Name Subscriber Date Member ID DENISE JULIAN 1995 [id number] [employer] # [phone] Symphony breast pump [id number] Length of need: 3 months Infant's diagnosis: Infant born at 36 weeks 2 days gestation. Infant admitted to the [facility] for respiratory distress Purpose of Appliance: To Initiate and Maintain Medical Necessity: /Lactating Mother- Z39.1 Breast Engorgement relative to born at 36 weeks gestation Feeding problem of , unspecified P92.9 Premature in ICN from mother P07.30 36 completed weeks P07.39 (36 weeks, 0 days, through 36 weeks, 6 days) A standard breast pump will not provide sufficient milk for this baby. [facility] NPI #: [id number] DEPARTMENT OF [facility] [place]ESS [place] MEDICAL NECESSITY FORM (MNF) ORTHOTICS, PROSTHETICS, MEDICAL SUPPLIES & EQUIPMENT All claims for supplies and equipment require a written order. Orders must be signed by a physician, physician financial administrative assistant, or nurse practitioner. All home health [...] or on other documentation submitted to the DVHA and DXC. The codes submitted to DVHA and DXC must matchthe description documented by the ordering provider. All orders must adhere to state and federal rules and regulations. [place] Medicaid Rules can be found online at [email or web address]-[email or web address]. Section A: (must be completed or reviewed and signed by ordering provider) Beneficiary's name: Denise Julian Medicaid ID#: [place] Payor Plan Address Payor Plan Phone Number Payor Plan Fax Number Effective Dates [address] 01/25/2023 - None Entered [facility] [address] Subscriber Name Subscriber Date Member ID DENISE JULIAN 1995 [id number] Diagnoses: born at 36 weeks 2 days gestation. admitted to the ICN for respiratory distress Purpose of Appliance: To Initiate and Maintain Medical Necessity: /Lactating Mother- Z39.1 Breast Engorgement relative to born at 36 weeks gestation Feeding problem of , unspecified P92.9 Premature Infant in ICN from mother P07.[address] of service: Is the beneficiary living in a custodial facility? Yes [ ] No[x] Is the [...] address: Please see ordering physician signature below. [facility], [address] [place] [address] 6. Ordering provider's signature: Please see order [...] identified in the Provider Manual, available at: [email or web address]. For exceptions, an MNF must be kept on file by the DME supplier. Prior Authorization: The DME supplier must include a copy of an MNF with every Prior Authorization request. Fax the MNF and any other supporting documents to the [facility] at . Use of this [facility] Medical Necessity Form is recommended for all prior authorization requests to ensure timely processing. Medicaid may request a copy of the medical record upon audit. *INSTRUCTIONS FOR SECTIONS A & B* Section A must be completed or reviewed, signed, and dated by the ordering physician/physician financial administrative assistant/nurse practitioner. Section B must be completed [...] must appear on other documentation submitted to [facility] for PA and to [facility] for billing), medical necessity rationale, expected length of need (will be interpreted as months unless stated otherwise), and the number ofitems needed (for example: 2 bottles of sterile saline per month). NOTE: If the quantity ordered ismore than the number allowed (based on customary usage and as listed in the [facility] DME Restriction list, available at: [email or web address] [facility] [email or web address]/for-providers/[email or web address]-zcsyriaz-qsrrwbbddx), an explanation from the physician is required. [...] Hospital grade rental pump Size requested: Follow-up [[id number] Custom] As directed Process Instructions: Scheduling Instructions: Comments: - gestational diabetic counseling with bakery supervisor at the time of the visit if there is a diagnosis of gestational diabetes. Questions: Discharge References/Attachments None documented in this encounter Discharge Instructions * Discharge Instructions* Tessie Hernandez RODY - 04/15/2023 3:01 PM EDT Images from [...] aware, opioid use is a concern in [place] and [place]. We recommend that families with [...] overwhelmed. Emergency Resources National Suicide Hotlines: or [place]: Call/Text [facility] Mental Health Crisis Hotline: Call/Text [facility] Mental Health Hotline: Call/Text Call your doctor or bell spinner sousaphones for: Seizure (call 911) Headache which isn't [...] prior to you follow up appointment. Your [facility] Provider can be reached during office hours at [facility] AFTER OFFICE HOURS for the animal nutrition teacher or bell spinner sousaphones consultant dietitian Post- Warning Signs Most women who give [...] by mouth daily. 05/24/2023 vitamin 27 & hzxxemt-cett-OP 60 mg iron-1 mg Tablet Take 1 tablet by mouth daily. 05/24/2023 documented as of this encounter Progress Notes * Gayle Sanon RN - 04/15/2023 4:03 PM EDT VSS. FF. Lochia light amount, rubra. Voiding with no difficulty and ambulating independently to NICU to be with daughter. Abdominal incision is clean and healing, [...] QBL 880 mL. S: Denise is feeling ok this morning. She is [...] for the patient's : Young, Baby Girl [[id number]] Delivery Date and Time:04/12/2023 4:21 PM Delivery [...] MSW - 04/14/2023 3:36 PM EDT [facility] Social Work Note Patient: DENISE JULIAN Relevant [...] She expressed that this experience of her needing critical care at was very traumatic, [...] to her house rather than stay at [facility] so she can tend to them. Plan: This SW will remain available to provide additional support to patient as needed/desired by patient. TITO Melo Pronouns: She/Her Business Management Intern [facility] Pager: [phone] [email or web address] [facility] Children's * Trina Bravo MD - 04/14/2023 [...] PGY4 Obstetrics and Gynecology Associated attestation - Ntiza Murguia MD - 04/13/2023 7:24 PM EDT [...] scar Comments: SROM, arrest 3cm 3 Term 2017 39w0d 2.523 kg (5 lb 9 oz) [...] mg by mouth daily. vitamin 27 & cvbdjjc-qnes-CF 60 mg iron-1 mg Tablet Take 1 [...] 135, Variability: moderate, Accels: yes, Decels: none, Canadian: none Lab Results Component Value Date ABORH A Pos 03/18/2023 HCT 33.0 (L) 04/12/2023 HGB 11.0 (L) 04/12/2023 MCV 85.7 04/12/2023 AST 13 11/20/2022 Most Recent Growth Ultrasound Date: 02/19/2023 GA at US: 29w6d EFW: 1513g (91st %) Growth appropriate for gestational age Amniotic fluid volume normal Placenta posterior Presentation cephalic Assessment & Plan Densie Julian is a 27 y.o. at 36w2d [...] seen and discussed with Dr. Headley, Attending BREAD WRAPPER. Vicente Zhang MD, PGY3 Obstetrics and Gynecology [...] was weaned slightly. Analisa Shepard RN, IBCLC [facility] Services * Plan of Care - Cathy [...] weight loss: -4% MATERNAL INFO: Denise Julian [id number] 1995 G 4 P 3 Significant History: [...] relax to resting position, not stayextended OBSERVATION: INFANT ASSESSMENT: on CPAP, mom did STS this am Oral Motor Examination/Function: Mouth: Normal Jaw: Normal Lips: Normal PATIENT EDUCATION AND RECOMMENDATIONS: Pump at least 8-10 times per 24 hours and record in pumping log provided Breast massage and hand expression before and during pumping Brief heat prior to pumping and ice packs after pumping X 48 hours [place] oil to nipples prior to pumping Frequent and prolonged maternal-infant skin to skin contact Close support and follow up Pamphlets Provided Colostrum swabbing Breast Massage and Hand Expression Providing Breastmilk for your in the Intensive Care Nursery On-going Concerns: Inexperienced BF mom Delayed adequate feeding, ICN admission, need for respiratory support Late Monitor infant growth and nutrition closely 15 minutes were spent with this family, providing assessment, assistance, education, and support. Mother voices understanding of education and recommendations. Analisa Shepard RN, IBCLC [facility] Services * Note - Jannette Lorenz RN [...] pump. She has rented one via the COM DEV n???s untapt. She is sized to a 24 mm flange. We discussed pumping techniques. RECOMMENDATIONS: Breast massage and hand expression before and during pumping [place] oil to nipples prior to pumping Pump at least 8-10 times per 24 hours and record in pumping log provided Frequent and prolonged maternal- skin to skin contact when possible Encouraged [...] Betzy / Jennifer Ramírez Initial Assessment This comic book writer introduced self and reviewed role; services were accepted. Patient Name: Denise Eliel Child's Legal Name (if applicable): Annia Prakash Source of Information: Chart Review and patient interview Initial Assessment for: Mother / Couplet Was Conifer contacted to update information? No Home Address confirmed as: [address] [address] Verified Phone Numbers confirmed as: Extended Emergency Contact Information Primary Emergency Contact: Carl Prakash Address: [address] [place] [address] [place] Relation: Fiancee Primary Care Provider listed as: BRIDGETT Turner [...] of Stay: 2-3 days post c/s delivery, infant's discharge date is not yet known Current [...] room mate, older children with grandparents in [place]. Housing for family / support system while patient admitted to [facility] given Nutrition Food: Secure Current Nutrition of Patient: PO - regular diet Breast pump needs: Hospital grade breast pump rental provided (Given rental pump number [id number], approved by [facility]anna holl[facility]) Social and Community Resources: Patient is not employed. Her partner, Carl Prakash, is employed PTas a insurance sales supervisor for [employer]). Transportation Baseline Transportation: Personal Vehicle Transportation at Discharge: Personal Vehicle - Family / Friend to drive Current Patient / Caregiver Coping: coping okay, teary at times Child Life Consult Needed for Other Children in the Home / Family: declined WOODWORKING MACHINE SETTER Consult Needed: possibly Health Coverage confirmed as: [place] Payor: [place] / Plan: [place] / Product Type: *No Product type* / N/A patient to be added to above insurance plan: Yes Prescription Coverage: Yes Preferred Pharmacy: [facility] [address] [place], [place] - [address] [place] [id number] Anticipated Barriers to Discharge / Special Considerations: no Plan: Patient to discharge to [facility] when medically stable. Follow up with OB team. to discharge home with PCP and VNA follow up. financial controller / WOODWORKING MACHINE SETTER remain available as needed for coordination of [...] note for further details. Dr. Headley, attending Auto Garage Mechanic, present for entire delivery without conflicting clinical responsibilities. Maria Teresa Dhillon MD, PGY4 Obstetrics and Gynecology Information for the patient's : Eliel, Baby Girl [[id number]] DELIVERY SUMMARY FOR Baby Jese Julian (please note there is a separate summary [...] Yes Other Personnel: Provider Role Chandrika Elmore, tensile tester Nurse Mary Headley MD Mosaic Tile Maker Tami Victor RN Delivery Assist Maria Teresa Dhillon MD Resident Navya Martinez, [facility] Tech Anesthesia Method: Combined Spinal/Epidural Cord Vessels: 3 [...] PPV intermittently for ~30 minutes. Transferred to [facility] and placed on Bubble CPAP adjusting to CPAP of 7, 25-35% FiO2. (per respiratorynote) Maternal [place] Feeding and Skin to Skin Maternal Choice for (s) Feeding on Admission: Reason skin to skin not initiated: Acuity Medications [place] Medications Given: vitamin K, erythromycin Measurements Weight: [...] Operative Note Patient Name: Denise Julian : [id number] MR#: [id number] Case Date: 04/12/2023 Surgeon: Surgeon(s) and Role: [...] Dhillon MD - 04/12/2023 3:45 PM EDT [facility] Operative Note Patient Name: Denise Julian : [id number] MR#: [id number] Case Date: 04/12/2023 Surgeon: Surgeon(s) and Role: * Mary Headley MD - Primary * Maria Teresa Dhillon MD - Resident - Assisting * Vicente Zhang MD - Resident - Assisting * BIRTHING PAVILION, PROCEDURES Preoperative diagnosis: 1) 36w2d IUP 2) Prior x 2 with history of suspicion for occult uterine scar separation noted at time of last and thin IX noted on US this with concern for [...] pressure was applied to facilitate delivery of infant. The head and shoulders delivered easily. A live born female was delivered. After a delay, he cord [...] There was no imbricating layer, however several ldzjiy-yj-zdmzep were placed over the hysterotomy after which [...] 04/12/2023 5:52 PM EDT FALLOPIAN TUBE(S)\LIGATION\TRANS ECTION\ POST-\ABD\EMBOSSING PRESS OPERATOR Routine 04/12/2023 3:27 PM EDT Dehiscence of old uterine scar with extension before onset of labor, delivered [place] Fallopian Tube, ([id number]) 04/12/2023 3:02 PM EDT Dehiscence of old uterine scar with extension before onset of labor, delivered Delivery Only ([id number]) 04/12/2023 3:02 PM EDT Dehiscence of old [...] 04/12/2023 12:00 PM EDT TYPE AND SCREEN ([facility]/CGP/SHANTEL) STAT 04/12/2023 12:00 PM EDT documented in this encounter Results * Syphilis Screening Antibody with reflex RPR (04/13/2023 3:10 PM EDT) Syphilis IgG/IgM Negative Negative [facility] Blood 04/13/2023 3:10 PM EDT 04/13/2023 3:36 PM EDT Narrative Resulting Agency Comment Spec In Lab Mary Headley MD CHEMISTRY ORDERABLE S [facility] [place] [address] * (ABNORMAL) Differential, Automated (04/13/2023 5:15 AM EDT) Pathologist [facility] Neutrophil % 84.2 % [facility] Neutrophil Absolute 15.69(H) 1.70 - 6.10 x10(3)/mc L [facility] Lymph % 7.7 % [facility] Lymphocytes Abs 1.4 0.9 - 3.2 x10(3)/mc L [facility] Monocyte % 7.1 % [facility] Monocyte Abs 1.3(H) 0.3 - 0.9 x10(3)/mc L [facility] Eos % 0.0 % [facility] Eosinophils Abs 0.0 0.0 - 0.4 x10(3)/mc L [facility] Basophil % 0.2 % [facility] Baso Absolute 0.0 0.0 - 0.1 x10(3)/mc L [facility] Immature Gran % 0.80 % [facility] Comment: Immature granulocytes(IG's)percentage and absolute count will include metamyelocytes, myelocytes, and promyelocytes. Blood smears from CBCs yielding IG's will be scanned manually for concordance. If this scan disagrees with the automated IG or if promyelocytes are noted, a manual differential will be performed. Immature Gran Absolute 0.14(H) 0.00 - 0.04 x10(3)/mc L [facility] Blood 04/13/2023 5:15 AM EDT 04/13/2023 5:23 AM EDT Narrative Resulting Agency Comment Spec In Lab Jocelin Mariscal MD HEMATOLOGY ORDERABLE S Performing Organization Address City/[facility]/ZIP Co de Phone Number [facility] [place] [address] * (ABNORMAL) Hemogram (04/13/2023 5:15 AM EDT) White Blood Cell 18.6(H) 4.0 - 9.5 x10(3)/ L [facility] Red Blood Cell 3.55(L) 4.00 - 5.21 x10(6)/ L [facility] Hemoglobin 10.4(L) 11.7 - 15.5 g/dL [facility] Hematocrit 30.2(L) 35.7 - 45.8 % [facility] Mean Cell Volume 85.1 82.6 - 94.[address] [facility] Mean Cell Hemoglobin 29.3 27.1 - 32.[address] [facility] Mean Cell Hemoglobin Concentration 34.4 31.7 - 35.0 g/dL [facility] Platelet 137(L) 145 - 357 x10(3)/mc L [facility] RDW Standard Deviation 41.2 37.0 - 46.[address] [facility] RDW coefficient of variation 13.2 11.5 - 14.1 % [facility] Mean Platelet Volume 13.2(H) 7.6 - 12.9 fL [facility] NRBC% auto 0.0 % [facility] NRBC Absolute 0.000 0.000 - 0.000 x10(3)/mc L [facility] Blood 04/13/2023 5:15 AM EDT 04/13/2023 5:23 AM EDT Narrative Resulting Agency Comment Spec In Lab Jocelin Mariscal MD HEMATOLOGY ORDERABLE S Performing Organization Address City/[facility]/ZIP Co de Phone Number [facility] [place] [address] * POCT Glucose (04/12/2023 11:35 PM EDT) Glucose, POC 129 65 - 199 mg/dL [facility] Comment: Supplemental ranges: <140 mg/dL before meals <180 mg/dL all other times of the day Blood 04/12/2023 11:3 5 PM EDT 04/12/2023 11:35 PM EDT Mary Headley MD POINT OF CARE TEST ORDERABLES [facility] [place] [address] * Specimen to Pathology (04/12/2023 5:53 PM EDT) AP Specimen 04/12/2023 5:53 PM EDT 04/12/2023 5:53 PM EDT Narrative [facility] - 04/12/2023 5:53 PM EDT Specimen requisition ordered. ??Separate Pathology report to follow Mary Headley MD PATHOLOGY/CYTOLOGY ORDERABLES Performing Organization Address City/[facility] Co de Phone Number [facility] [address] * Specimen to Pathology (04/12/2023 5:53 PM EDT) AP Specimen 04/12/2023 5:53 PM EDT 04/12/2023 5:53 PM EDT Narrative [facility] - 04/12/2023 5:53 PM EDT Specimen requisition ordered. ??Separate Pathology report to follow Mary Headley MD PATHOLOGY/CYTOLOGY ORDERABLES Performing Organization Address City/[facility]/ZIP Co de Phone Number [facility] [place] [address] * Surgical Pathology Report (04/12/2023 5:52 PM EDT) Final Diagnosis [id number] ? Location: BP; BP05; A The signing pathologist has (i) examined [...] Obrien Verified: ??04/19/2023 10:37 ??Pathologist Performed at: ??-[facility] Dept. of Pathology, [place] [address] Traffic Assistant: Mahendra Turcios MD, FCAP, ??CLIA Certificate: [id number] SPECIMEN(S) SUBMITTED A - Placenta B - [...] formed cotyledons. Parenchyma: Boggy, purple-red. Sections/Processi ng: Procurement Assistant sections in 8 cassettes as follows: ?A1: ??Membrane roll ?A2: ??Proximal and distal cord ?A3-A8: ??Full thickness parenchyma, bisected B - Labeled/Fixative: ?? Bilateral fallopian tubes , formalin. Tissue Description: Intact, bilateral salpingectomy. . SPECIMEN PROCESSING Fallopian Tube 1: 12.0 x 0.9 cm, fimbriated. Fallopian Tube 2: 9.8 x 0.9 cm, fimbriated. Sections/Processi ng: Procurement Assistant sections in 4 cassettes as follows: ?B1: ??Fallopian tube 1 fimbria ?B2: ??Fallopian tube 1 cross sections ?B3: ??Fallopian tube 2 fimbria ?B4: ??Fallopian tube 2 cross sections ??ajw 04/19/2023 10:37 AM EDT [facility] TISSUE SPECIMEN FROM PLACENTA / Unknown 04/12/2023 5:52 PM EDT 04/12/2023 5:52 PM EDT False Vocal Cords, Bilateral 04/12/2023 5:52 PM EDT 04/12/2023 5:52 PM EDT Vicente Zhang MD PATHOLOGY/CYTOLOGY O RDERABLES Performing Organization Address City/[facility]/ZIP Co de Phone Number [facility] [address] [place] [address] * Group B Streptococcus Screen (04/12/2023 2:06 PM EDT) GBS Screen Neg [facility] Vaginal/Rectal 04/12/2023 2: 06 PM EDT 04/12/2023 3:32 PM EDT Comment:Penicillin Allergy?- >Yes Narrative Resulting Agency Comment Spec In Lab Vicente Zhang MD MICROBIOLOGY - GENER AL ORDERABLES Performing Organization Address City/[facility]/ZIP Co de Phone Number [facility] [address] * Group B Strep Culture Screen (04/12/2023 2:06 PM EDT) Group B Streptococcus Culture No Group B Streptococci isolated [facility] Vaginal/Rectal 04/12/2023 2: 06 PM EDT 04/12/2023 3:32 PM EDT Comment:Penicillin Allergy?- >Yes Narrative Resulting Agency Comment Spec In Lab Mary Headley MD MICROBIOLOGY - GENE RAL ORDERABLES [facility] [place] [address] * Type and Screen Validity (04/12/2023 12:00 PM EDT) Pathologist [facility] T&S only valid at [facility]ATORY Comment:This Type and Screen result is only valid at the [facility] Blood 04/12/2023 12:0 0 PM EDT 04/12/2023 12:15 PM EDT Narrative Resulting Agency Comment Spec In Lab Vicente Zhang MD BLOOD BANK LAB ORDER SHABNAM Performing Organization Address City/[facility] [facility]/ZIP Co de Phone Number [facility] [place] [address] * ABORH Recheck Status (04/12/2023 12:00 PM EDT) ABORH Type Recheck Completed [facility] Blood 04/12/2023 12:0 0 PM EDT 04/12/2023 12:15 PM EDT Narrative Resulting Agency Comment Spec In Lab Vicente Zhang MD BLOOD BANK LAB ORDER SHABNAM Performing Organization Address City/[facility]/ZIP Co de Phone Number [facility] [place] [address] * (ABNORMAL) Differential, Automated (04/12/2023 12:00 PM EDT) Neutrophil % 72.7 % [facility] Neutrophil Absolute 7.47(H) 1.70 - 6.10 x10(3)/mc L [facility] Lymph % 19.0 % [facility] Lymphocytes Abs 2.0 0.9 - 3.2 x10(3)/mc L [facility] Monocyte % 6.3 % [facility] Monocyte Abs 0.6 0.3 - 0.9 x10(3)/mc L [facility] Eos % 0.5 % [facility] Eosinophils Abs 0.0 0.0 - 0.4 x10(3)/mc L [facility] Basophil % 0.4 % [facility] Baso Absolute 0.0 0.0 - 0.1 x10(3)/mc L [facility] Immature Gran % 1.10 % [facility] Comment: Immature granulocytes(IG's)percentage and absolute count will include metamyelocytes, myelocytes, and promyelocytes. Blood smears from CBCs yielding IG's will be scanned manually for concordance. If this scan disagrees with the automated IG or if promyelocytes are noted, a manual differential will be performed. Immature Gran Absolute 0.11(H) 0.00 - 0.04 x10(3)/ L [facility] Blood 04/12/2023 12:0 0 PM EDT 04/12/2023 12:17 PM EDT Narrative Resulting Agency Comment Spec In Lab Vicente Zhang MD HEMATOLOGY ORDERABLE S [facility] [place] [address] * (ABNORMAL) Hemogram (04/12/2023 12:00 PM EDT) White Blood Cell 10.3(H) 4.0 - 9.5 x10(3)/mc L [facility] Red Blood Cell 3.85(L) 4.00 - 5.21 x10(6)/mc L [facility] Hemoglobin 11.0(L) 11.7 - 15.5 g/dL [facility] Hematocrit 33.0(L) 35.7 - 45.8 % [facility] Mean Cell Volume 85.7 82.6 - 94.[address] [facility] Mean Cell Hemoglobin 28.6 27.1 - 32.[address] [facility] Mean Cell Hemoglobin Concentration 33.3 31.7 - 35.0 g/dL [facility] Platelet 137(L) 145 - 357 x10(3)/mc L [facility] RDW Standard Deviation 42.0 37.0 - 46.[address] [facility] RDW coefficient of variation 13.6 11.5 - 14.1 % [facility] Mean Platelet Volume 12.7 7.6 - 12.9 fL [facility] NRBC% auto 0.0 % [facility] NRBC Absolute 0.000 0.000 - 0.000 x10(3)/mc L [facility] Blood 04/12/2023 12:0 0 PM EDT 04/12/2023 12:17 PM EDT Narrative Resulting Agency Comment Spec In Lab Vicente Zhang MD HEMATOLOGY ORDERABLE S [facility] [place] [address] * Antibody screen (04/12/2023 12:00 PM EDT) Ab Screen Interp Negative [facility] Expires at 2359 on: 04/15/[address] [facility] Blood 04/12/2023 12:0 0 PM EDT 04/12/2023 12:15 PM EDT Narrative Resulting Agency Comment Spec In Lab Vicente Zhang MD BLOOD BANK LAB ORDER SHABNAM [facility] [place] [address] * ABO/Rh Typing (04/12/2023 12:00 PM EDT) ABORH Type A Pos [facility] Blood 04/12/2023 12:0 0 PM EDT 04/12/2023 12:15 PM EDT Narrative Resulting Agency Comment Spec In Lab Vicente Zhang MD BLOOD BANK LAB ORDER SHABNAM [facility] [place] [address] documented in this encounter Visit Diagnoses Diagnosis Dehiscence of old uterine scar with extension before onset of labor, delivered H/O section Other postprocedural status H/O section Other postprocedural status Dehiscence of old uterine scar with extension before onset of labor, delivered documented in this encounter Admitting Diagnoses Diagnosis [...] on Wed04/13/23 at 2100, Until Discontinued, Routine ibuprofen (Advil) tablet 800 mg 800 mg, Oral, EVERY 6 HOURS, First dose (after last modification) on Wed04/14/23 at 1100, Until Discontinued, - Begin after ketorolac discontinued. , Routine Given 04/15/2023 3:49 PM EDT 800 mg Given 04/15/2023 10:24 AM EDT 800 mg Given 04/14/2023 10:43 PM EDT 800 mg lidocaine (Lidoderm) 5% patch 3 patch 3 [...] PM EDT 3 patches 13- Abdomen (Left) methylergonovine (Methergine) (0.2 mg/mL) injection PRN, Starting on Wed04/12/23 at 1649, Until Mavis 04/15/23 at 1816, Intra-Operative (Intra-Procedure), Routine Given 04/12/2023 4:49 PM EDT 0.2 mg Right Quadriceps miSOPROStoL (Cytotec) tablet PRN, Starting on Wed04/12/23 at 1646, Until Mavis 04/15/23 at 1816, Intra-Operative (Intra-Procedure), Routine Given 04/12/2023 4:46 PM EDT 600 mcg oxyCODONE (Roxicodone) tablet 10 mg 10 mg, [...] Routine Given 04/14/2023 10:43 PM EDT 5 mg Given 04/13/2023 11:14 PM EDT 5 mg simethicone (Gas-X Chew) 80 mg chewable tablet 80 mg 80 mg, Oral, EVERY 6 HOURS PRN, Starting on Wed04/14/23 at 1745, Until Mavis 04/15/23 at 1816, Cramping, Routine Given 04/14/2023 6:30 PM EDT 80 mg documented in this encounter Active and Recently [...] RODY) 1025 (Given - Provider: Tessie Bettencourt, RODY) enoxaparin (Lovenox) (40 mg/0.4 mL) subcutaneous injection [...] Routine 0045 (Not Given - Provider: Clementine Ocala, RN - Reason: Patient/family refused)0403 (Given - [...] RODY) 0500 (Due)1024 (Given - Provider: Tessie Bettencourt RN)1100 (Due)1549 (Given - Provider: Tessie Bettencourt RN) ketorolac (Toradol) (15 mg/mL) injection 15 mg (COMPLETED) 15 mg, Intravenous, EVERY 6 HOURS, 5 doses, First dose on Wed04/12/23 at 1845, Last dose on Wed04/13/23 at 1845, Routine 0116 (Given - Provider: Mary Malik RN)0652 (Given - Provider: Mary Malik RN)1241 (Given - Provider: Cathy Sebastian RN)1909 (Given - Provider: Maricruz Juan, RODY) lidocaine (Lidoderm) 5% patch 3 patch 3 [...] CONTINUOUS, Starting on Wed04/12/23 at 1145, Until Mavis 04/15/23 at 1816, Maximum 125 mL in one [...] RN) 1025 (Given - Provider: Tessie Bettencourt RN)1550 (Given - Provider: Tessie Bettencourt RN) oxyCODONE (Roxicodone) tablet 10 mg(Linked Group 2) 10 mg, Oral, EVERY 4 HOURS PRN, Starting on Wed04/12/23 at 1753, Until Mavis 04/15/23 at 1816, Pain, for pain scale 9-10, Routine 2314 (See Alternative - Provider: Clementine Mendoza RN) 2242 (See Alternative - Provider: Mary Ellen Carrasco, RODY) oxyCODONE (Roxicodone) tablet 5 mg(Linked Group 2) 5 mg, Oral, EVERY 4 HOURS PRN, Starting on Wed04/12/23 at 1753, Until Wed04/15/23 at 1816, Pain, for pain scale 6-8, Routine 2313 (Given - Provider: Clementine Mendoza RN) 2242 (Given - Provider: Mary Ellen Carrasco, RODY) simethicone (Gas-X Chew) 80 mg chewable tablet 80 mg 80 mg, Oral, EVERY 6 HOURS PRN, Starting on Wed04/14/23 at 1745, Until Wed04/15/23 at 1816, Cramping, Routine 1830 (Given - [...] Routine documented in this encounter Care Teams Test Development Engineer Relationship Specialty Start Date End Date Analisa Martinez [place] [address] PCP - General 11/30/22 documented as of this encounter
--- OUTSIDE RECORDS SUMMARY | 2024-05-04 18:59 | XMS_ITS | Encounter Summary ---
Author Organization [facility] Address [facility] [place] [address] Care Team Providers Care Physical Therapy Aides Teacher Name Role Phone Analisa Martinez Primary Care Provider [phone] Encounter Details Date Type Department Care Team (Latest Contact Info) Description 01/21/2023 Travel Social History Tobacco Use Types Packs/Day [...] on filedocumented in this encounter Care Teams Physical Therapy Aides Teacher Relationship Specialty Start Date End Date Analisa [place] [address] PCP - General 11/30/22 documented as of this encounter
--- OUTSIDE RECORDS SUMMARY | 2024-05-04 18:59 | XMS_ITS | Encounter Summary ---
[place] [address] Care Team Providers Care Bolter Helper Name Role Phone Analisa Martinez Primary Care Provider [phone] Reason for Visit * Auth/Cert (Routine) Specialty Diagnoses / Procedures Referred By Contac t Referred To Contact Diagnoses prrior with window Procedures PRO DELIVERY ONLY ER OBSVO Sujata Prater MD [facility] [address] [facility]ST[facility] [place] [address] [facility] Referral ID Status Reason Start Date Expiration Date Visits Re quested Visits Authorized [id number] 1 1 Encounter Details Date Type Department Care Team (Late st Contact Info) Description 04/12/2023 3:14 PM EDT Anesthesia [place] [address] Reyna Ureña MD [facility] [place] [address] Anesthesia Record Procedure Summary Procedure Name Responsible Anesthesiologist Anesthesia Start Time Anesthesia Stop Time @ DELIVERY ([facility]VU 16.13) (Bilateral: Abdomen) Reyna Ureña MD 04/12/23 1514 04/12/23 1746 Events Date Time Event Comment 04/12/2023 1514 AN Verify 1514 Start 1514 An Start Data 1524 Spinal 1524 Epidural 1528 L Uterine Displacement 1530 Anesthesia Ready 1545 Skin Incision 1621 Uterine Incision 1622 Baby Delivered 1646 Quick Note Low uterine ton e, pt given 600mcg buccal misoprostol and IM methylergonovine 1731 an stop data 1745 Recovery or ICU Handoff Abbie ent care was transferred to the destination unit staff after review of the patient's medical history, current anesthetic/surgical status and plan, according to the Provider Handoff Checklist. 1746 Stop 04/13/2023 1150 Meds Name Total PHENYLephrine 320 mcg Ondansetron 8 mg PHENYLephrine INF 5,080 mcg Oxytocin 3 Units Oxytocin INF 1,269.8 mL Dexmedetomidine 16 mcg ceFAZolin (Ancef) 2 g vial a ttach to sodium chloride 0.9% 100 mL Mini-Bag Plus 2 g Dexamethasone 8 mg Propofol 10 mg EPINEPHrine 1mg/mL 100 mcg Morphine 0.15 mg fentaNYL 15 mcg BUpivacaine 0.75% with Dextrose 15 mg Tranexamic Acid 2,000 mg Lactated Ringers 2,800 mL * Agents Name O2 * Blood No blood administrations on file. Lines, Drains, and Airways Type Details Placement Removal Incision 04/12/23; 1501; anterior; abdomen; low transverse 04/12/23 1501 by Tami Noel, RN (RETIRED) Peripheral IV Line - Single Lumen 04/12/23; 1215; cephalic vein (lateral side of arm), left; [id number] catheter system; Anatomical Landmarks; 20 gauge, 1 in length; John Christensen RN VAS; distraction, tolerated well; 04/15/23; 1018 04/12/23 1215 by Myah Christensen RN 04/15/23 1018 by Tessie Hernandez, RN (RETIRED) Peripheral IV Line - Single Lumen 04/12/23; 1234; basilic vein (medial side of arm), left; [id number] catheter system; Anatomical Landmarks; 20 gauge, 1 in length; John Christensen RN VAS; distraction, tolerated well; no longer indicated, catheter/device intact; 04/14/23; 1330 04/12/23 1234 by Myah Christensen RN 04/14/23 1330 by Cathy Sebastian RN Urethral Catheter 04/12/23; 1538; Abdominal surgery; Acute urinary retention or obstruction; indwelling double lumen catheter; 100% silicone; 16; inserted at this facility; 1; 10; 10; none; urethral catheter removed, tubing intact; 04/13/23; 1045 04/12/23 1538 by Tami Noel RN 04/13/23 1045 by Cathy Sebastian RN documented in this encounter Social History Tobacco [...] of this encounter OR Notes * Anesthesia Postprocedure Evaluation - Seamus Hernandez MD - 04/12/2023 5:49 PM EDT Department of Anesthesiology Post-procedure Note Patient: Isabel Julian Procedure Summary Date: 04/12/23 Room / Location: [facility] OR [address] [place] [address] [facility] Anesthesia Start: 1514 Anesthesia Stop: 1745 Procedures: @ DELIVERY ([facility] 16.13) (Bilateral: Abdomen) @FALLOPIAN TUBE(S), TRANSECTION OR LIGATION, ABD APPROACH, POST- ([facility]VU 5.28) (Abdomen) Diagnosis: Dehiscence of old uterine scar with extension before onset of labor, delivered (prrior with window) Surgeons: Mary Headley MD Responsible Provider: Reyna Ureña MD Anesthesia Type: spinal ASA Status: 3 All Anesthesia Providers: Anesthesiologist: Reyna Ureña MD Case Sealer: Rupert Chavez MD; Seamus Hernandez MD Vitals Value Taken Time BP 103/40 04/12/23 1741 Temp Pulse 66 04/12/23 1741 Resp 16 04/12/23 1741 SpO2 99 % 04/12/23 1749 Pain Level Vitals shown include unvalidated device data. Patient Location: Floor Level of Consciousness: Awake and Alert Pain Management: Satisfactory Analgesia PONV: None Cardiovascular Status: At Baseline and Hemodynamically Stable Respiratory Status: At Baseline and Room Air Postoperative Fluid Status: Intravascular EUvolemia Possible Anesthetic Complications: NONE apparent at time of evaluation Final Primary Anesthesia Type: CSE (The anesthetic type performed was the same as planned.) Comments: Patient awake, alert, and oriented; actively conversing with staff. Denies any pain. There is residual spinal blockade with almost complete motor blockade in bilateral lower extremities. Patient reporting moderate nausea. Discussed with BP team, they will give IV prochlorperazine. Spontaneous ventilation without issue. VSS. Full report given to BP RN. * Anesthesia Procedure Notes - Rupert Chavez MD - 04/12/2023 3:39 PM EDT Associated Order(s): Neuraxial Block Procedure: Neuraxial Block Primary Anesthetic Type: Spinal & Epidural (DPE) The patient was greeted. The sedation plan, its benefits, risks and alternatives were discussed with the patient. The patient has consented to the procedure. The medical history and chart were reviewed. The timeout was performed. Start time: 04/12/2023 3:18 PM End time: 04/12/2023 3:26 PM Patient Location: Operating Room Patient Prep Position: Sitting Prep: Hand Hygiene, Hat, Mask, Sterile Gloves, Chlorhexidine and Patient Draped Injection technique: single-shot Skin Anesthetic Lidocaine 1% 3 ml Procedure Technique Level of needle insertion: L3-4 Needle approach: midline Needle Type: Indigo and Charlie Gauge: 25 and 17 Needle length: 3.5 in Needle insertion depth when MAGDY achieved: 7 cm Technique for Loss of Resistance: MAGDY saline Dressing/Secured with: Tegaderm Number of attempts: 1 Medications: Date/Time: 04/12/2023 3:18 PM BUpivacaine 0.75% with Dextrose - Intrathecal 15 mg - 04/12/2023 3:18:00 PM EPINEPHrine 1mg/mL - Perineural 100 mcg - 04/12/2023 3:18:00 PM fentaNYL - Intrathecal 15 mcg - 04/12/2023 3:18:00 PM Morphine - Intrathecal 0.15 mg - 04/12/2023 3:18:00 PM Events/Notes Events: None Additional Notes: Straightforward procedure. CSE performed without issue. Patient feeling numbnessin legs shortly after spinal injection. Performed by: Resident/WEB DESIGN INSTRUCTOR: Rupert Chavez MD Authorized by: Reyna Ureña MD ~~~~~~~~~~~~~~~~~~~~~~~~~~~~~~~~~~~~~~~~~~~~~~~~~~~~~~~~~~~~ * Anesthesia Preprocedure Evaluation - Reyna Ureña MD - 04/12/2023 7:21 AM EDT Pre-Anesthesia Evaluation for: Isabel Julian a 27 y.o. female. Procedure(s): [facility] Patient Active Problem List Diagnosis Date Noted ??? labor 03/18/2023 ??? History of rupture of uterus 03/14/2023 ??? Previous delivery affecting 02/24/2023 Past Medical History: Diagnosis Date ??? Asthma Past Surgical History: Procedure Laterality Date ??? SECTION ??? SECTION Social History Tobacco Use ??? Smoking status: Every Day Packs/day: 0.50 Types: Cigarettes ??? Smokeless tobacco: Never ??? Tobacco comments: Cut back from 2 packs Substance Use Topics ??? Alcohol use: Not Currently Social History Substance and Sexual Activity Drug Use Never Allergies Allergen Reactions ??? Environmental [Latex, Natural Rubber] Rash ??? Penicillins ??? Varicella Vaccines Hives Medications: MAR and/or home medications have been reviewed. Physical Exam: Preprocedure Vitals Current as of 04/12/23 0721 No BP, pulse, respiration, SpO2, or temperature recorded. Height: 160 cm (5' 2.99) (03/18/23) Weight: 99.1 kg (218 lb 8 oz) (03/22/23) BMI: 38.72 IBW: 52.4 kg (115 lb 7.7 oz) Airway Assessment: Mallampati: II Cardiovascular Assessment: system normal Pulmonary Assessment: unlabored breathing Dental Assessment: Misc Assessment: IV access: Peripheral line Last Filed Perioperative Cognitive Screening None Anesthesia Plan: ASA 3 spinal, with a(n) intravenous induction Preprocedure anesthesia Note Pt interviewed and examined. Pt is a 27 y.o. female who is and 36w2d here for scheduled repeat . Medical, surgical, and social history reviewed, significant for asthma, current smoker, 2 prior c-sections, prior uterine rupture during prior , GERD, anxiety. Labs and allergies reviewed and listed below. Personal history of problems with anesthesia: denies Family history of anesthesia problems: denies Bleeding Disorder: denies, plt 130 a month ago Asthma: yes, and current smoker HTN: no Prior back surgeries/pathology: denies LE numbness/weakness: denies No results for input(s): WBC, HGB, HCT, PLATELET in the last 168 hours. No results for input(s): INR in the last 168 hours. No results for input(s): NA, K, CL, CO2, BUN, CREATININE in the last 168 hours. No results for input(s): AST, ALT, ALKPHOS, BILITOT, BILIDIR in the last 168 hours. No results for input(s): CALCIUM, MAGNESIUM, PHOS in the last 168 hours. No results for input(s): CK, TROPONINT in the last 168 hours. No results for input(s): TSH in the last 7068 hours. No results for input(s): HA1C in the last 7068 hours. Type & Screen: Lab Results Component Value Date ABORH A Pos 03/18/2023 Allergies:Environmental [latex, natural rubber]; Penicillins; and Varicella vaccines ASSESSMENT & PLAN: Spinal, PIV Rupert Chavez MD Case Sealer, PGY3/CA2 Pager # [phone] Region - Informed Consent: Anesthetic plan and risks discussed with patient and spouse. Plan discussed with resident and attending. Anesthesia Screening documented in this encounter Plan of Treatment Not on file documented as of this encounter Procedures Procedure Name Priority Date/Time Associated Diagnosis Comments ANE NEURAXIAL APS USE Routine 04/12/2023 3:18 PM EDT documented in this encounter Results * Neuraxial Block (04/12/2023 3:18 PM EDT) Narrative Reyna Ureña MD - 04/12/2023 3:18 PM EDT Rupert Chavez MD ? 04/12/2023 ??3:41 PM Procedure: ?? Neuraxial Block Primary Anesthetic Type: Spinal & Epidural (DPE) The patient was greeted. The sedation plan, its benefits, risks and alternatives were discussed with the patient. ??The patient has consented to the procedure. ??The medical history and chart were reviewed. ??The timeout was performed. Start time: 04/12/2023 3:18 PM End time: 04/12/2023 3:26 PM Patient Location: Operating Room Patient Prep Position: Sitting Prep: Hand Hygiene, Hat, Mask, Sterile Gloves, Chlorhexidine and Patient Draped Injection technique: single-shot Skin Anesthetic Lidocaine 1% ??3 ml Procedure Technique Level of needle insertion: L3-4 Needle approach: midline Needle Type: Indigo and Charlie Gauge: 25 and 17 Needle length: 3.5 in Needle insertion depth when MAGDY achieved: 7 cm Technique for Loss of Resistance: MAGDY saline Dressing/Secured with: Tegaderm Number of attempts: 1 Medications: Date/Time: ??04/12/2023 3:18 PM BUpivacaine 0.75% with Dextrose - Intrathecal 15 mg - 04/12/2023 3:18:00 PM EPINEPHrine 1mg/mL - Perineural 100 mcg - 04/12/2023 3:18:00 PM fentaNYL - Intrathecal 15 mcg - 04/12/2023 3:18:00 PM Morphine - Intrathecal 0.15 mg - 04/12/2023 3:18:00 PM Events/Notes Events: ??None Additional Notes: ??Straightforward procedure. CSE performed without issue. Patient feeling numbness in legs shortly after spinal injection. Performed by: ?? Resident/WEB DESIGN INSTRUCTOR: ? Rupert Chavez MD Authorized by: Reyna Ureña MD ~~~~~~~~~~~~~~~~~~~~~~~~~~~~~~~~~~~~~~~~~~~~~~~~~~~~~~~~~~~~ Reyna Ureña MD WILDLIFE BIOLOGY TECHNICIAN [facility] documented in this encounter Visit Diagnoses Not on filedocumented in this encounter Administered Medications Inactive Administered Medications - up to 3 most recent administrations Medication Order MAR Action Action Date Dose Rate Site BUpivacaine (pf) (Sensorcaine) (7.5 mg/mL) 0.75% in dextrose 8.25% INTRATHECAL injection Intrathecal, Starting on Wed04/12/23 at 1518, Until Wed04/12/23 at 1518, Anesthesia Intra-op, Routine Given 04/12/2023 3:18 PM EDT 15 mg ceFAZolin (Ancef) 2 g vial attach to sodium chloride 0.9% 100 mL Mini-Bag Plus 2 g, Intravenous, EVERY 8 HOURS, First dose on Wed04/12/23 at 1500, Until Discontinued, Administer over 30 Minutes, Indication for (Active or Suspected): Prophylaxis New Bag 04/12/2023 3:26 PM EDT 2 g dexAMETHasone (Decadron) injection Intravenous, PRN, Starting on Wed04/12/23 at 1535, Until Wed04/12/23 at 1749, Anesthesia Intra-op, Routine Given 04/12/2023 3:35 PM EDT 8 mg dexmedeTOMIDine (Precedex) (4 mcg/mL) bolus injection (Anesthsia) Intravenous, PRN, Starting on Wed04/12/23 at 1514, Until Wed04/12/23 at 1749, Anesthesia Intra-op, Routine Given 04/12/2023 3:17 PM EDT 8 mcg Given 04/12/2023 3:14 PM EDT 8 mcg EPINEPHrine (Adrenalin) (1 mg/mL) injection Perineural, Starting on Wed04/12/23 at 1518, Until Wed04/12/23 at 1518, Anesthesia Intra-op, Routine Given 04/12/2023 3:18 PM EDT 100 mcg fentaNYL (pf) (50 mcg/mL) multi-dose injection Intrathecal, Starting on Wed04/12/23 at 1518, Until Wed04/12/23 at 1518, Anesthesia Intra-op, Routine Given 04/12/2023 3:18 PM EDT 15 mcg lactated ringers infusion Intravenous, CONTINUOUS PRN, Starting on Wed04/12/23 at 1514, Until Wed04/12/23 at 1749, Anesthesia Intra-op New Bag 04/12/2023 4:36 PM EDT New Bag 04/12/2023 3:52 PM EDT New Bag 04/12/2023 3:14 PM EDT morphine (PF) (0.5 mg/mL) injection Intrathecal, Starting on Wed04/12/23 at 1518, Until Wed04/12/23 at 1518, Anesthesia Intra-op, Routine Given 04/12/2023 3:18 PM EDT 0.15 mg ondansetron (pf) (Zofran) (2 mg/mL) injection Intravenous, PRN, Starting on Wed04/12/23 at 1518, Until Wed04/12/23 at 1749, Anesthesia Intra-op, Routine Given 04/12/2023 4:28 PM EDT 4 mg Given 04/12/2023 3:18 PM EDT 4 mg oxytocin (Pitocin) (0.06 units/mL) in sodium chloride 0.9% 500 mL infusion Intravenous, CONTINUOUS PRN, Starting on Wed04/12/23 at 1624, Until Wed04/12/23 at 1749, Anesthesia Intra-op, Routine Rate/Dose Change 04/12/2023 4:43 PM EDT 999 mL/hr 999 mL/hr New Bag 04/12/2023 4:24 PM EDT 750 mL/hr 750 mL/hr oxytocin (Pitocin) (10 unit/mL) injection Intravenous, PRN, Starting on Wed04/12/23 at 1623, Until Wed04/12/23 at 1749, Anesthesia Intra-op, Routine Given 04/12/2023 4:23 PM EDT 3 Units PHENYLephrine (Sudeep-Synephrine) (80 mcg/mL) in sodium chloride 0.9% 250 mL infusion Intravenous, CONTINUOUS PRN, Starting on Wed04/12/23 at 1524, Until Wed04/12/23 at 1749, Anesthesia Intra-op, Routine Rate/Dose Change 04/12/2023 5:19 PM EDT 10 mcg/min 7.5 mL/hr Rate/Dose Change 04/12/2023 5:11 PM EDT 20 mcg/min 15 mL/h r Rate/Dose Change 04/12/2023 5:07 PM EDT 30 mcg/min 22.5 mL /hr PHENYLephrine in NS (PF) (SUDEEP-SYNEPHRINE) 0.8 mg/10 mL (80 mcg/mL) multi-dose injection Syringe Intravenous, PRN, Starting on Wed04/12/23 at 1534, Until Wed04/12/23 at 1749, Anesthesia Intra-op, Routine Given 04/12/2023 4:42 PM EDT 80 mcg Given 04/12/2023 4:30 PM EDT 160 mcg Given 04/12/2023 3:34 PM EDT 80 mcg propofoL (Diprivan) 10 mg/mL bolus injection (Anesthesia) Intravenous, PRN, Starting on Wed04/12/23 at 1538, Until Wed04/12/23 at 1749, Anesthesia Intra-op Given 04/12/2023 3:38 PM EDT 10 mg tranexamic acid (Cyklokapron) (100 mg/mL) IV bolus Intravenous, Administer over 8 Hours, PRN, Starting on Wed04/12/23 at 1625, Until Wed04/12/23 at 1749, Anesthesia Intra-op, Routine Given 04/12/2023 4:55 PM EDT 1,000 mg Given 04/12/2023 4:25 PM EDT 1,000 mg documented in this encounter Care Teams Bolter Helper Relationship Specialty Start Date End Date [place] [address] PCP - General 11/30/22 documented as of this encounter
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
--- OUTSIDE RECORDS SUMMARY | 2024-05-04 18:59 | XMS_ITS | Encounter Summary ---
Author Organization [facility] Address [facility] [place] [address] Care Team Providers Care Lamp Assembler Name Role Phone Analisa Martinez Primary Care Provider [phone] Reason for Visit * Reason Comments Routine Visit Encounter Details Date Type Department Care Team (Late st Contact Info) Description 11/30/2022 4:30 PM EST Office Visit Obstetrics [place] [address] Nitza Murguia MD [facility] [place]STET[place] [address] Previous delivery affecting , antepartum; Dehiscence of old uterine scar with extension before onset of labor, delivered Social History Tobacco Use Types Packs/Day Years [...] Sign Reading Time Taken Comments Blood Pressure 132/72 11/30/2022 4:24 PM EST Pulse 80 11/30/2022 4:24 PM EST Temperature - - Respiratory Rate 18 11/30/2022 4:24 PM EST Oxygen Saturation - - Inhaled Oxygen Concentration - - Weight 98.7 kg (217 lb 9.6 oz) 11/30/2022 4:24 P M EST Height 160 cm (5' 2.99) 11/30/2022 4:24 PM EST Body Mass Index 38.56 11/30/2022 4:24 PM EST documented in this encounter Progress Notes * Nitza Murguia MD - 11/30/2022 4:30 PM EST She complains of persistent abdominal and pelvic pain. No bleeding. No GI or complaints She is trying to get some work accomodations. She reports that the ultrasound reported as 7 weeks was transabdominal. She had a formal ultrasoundtransvaginal and transabdominal on 11/17/22 consistent with 15w3d. [place]. She relates the story that her business performance specialist screamed when she saw the uterine window and recommended she have no other pregnancies. The patient has opted to continue the . Patient Vitals for the past 24 hrs: Pulse Resp BP 11/30/22 1624 80 18 132/72 2nd Trimester Summary Single intrauterine with a gestational age of 17w 2d based on U/S (11/17/22 consistent with 15w3d) Composite age based on the current ultrasound alone is 17w 2d. Amniotic fluid volume is Appropriate for gestational age. Anatomical survey is limited due to early gestational age. There is a small fibroid on the left lateral/anterior uterus. The lower uterine segment is unremarkable. Imp: 17w2d by ultrasound. Ultrasound size today not consistent with 7 week scan but is consistent with the 15 week scan. There is no evidence on ultrasound to explain her pain. The lower uterine segment is unremarkable but can be followed by ultrasound later. Small fibroid not in the lower uterine segment. History of uterine window (op note is in the chart) Latest Reference Range & Units 11/20/22 12:30 Antinuclear Ab Negative Negative dsDNA Ab <=15.0 IU/mL 0.6 RF <=14 IU/mL <10 Plan: Return here for her detailed scan. Will plan for delivery at 36-37 weeks unless ultrasound raises additional concern. She is considering delivering at [facility] for access to OR services Desires sterilizationn. I explained that salpingectomy is permanent and irreversible. There are reliable reversible methods, such as the IUD. Women under the age of 30 experience risk for regret after sterilization. She stated a firm decision to have a sterilization. We signed the federal consent form today. Nitza Murguia MD Cc: Tova Teran CNM Time Attestation: I certify spending 30 minutes in providing care to this patient today as reflected by the followingactivities: - review of the medical record in the chart - discussing of medical decision making - documenting the outcome of today's visit as above documented in this encounter Plan of Treatment Not on file documented as of this encounter Visit Diagnoses Diagnosis Previous delivery affecting , antepartum Previous delivery, antepartum condition or complication Dehiscence of old uterine scar with extension before onset of labor, delivered documented in this encounter Care Teams Lamp Assembler Relationship Specialty Start Date End Date Analisa Martinez PA [address] [place] [address] PCP - General 11/30/22 documented as of this encounter
--- OUTSIDE RECORDS SUMMARY | 2024-05-04 18:59 | XMS_ITS | Encounter Summary ---
[place] [address] Care Team Providers Care Cost Accountant Name Role Phone Analisa Martinez Primary Care Provider [phone] Encounter Details Date Type Department Care Team (Late st Contact Info) Description 03/18/2023 Telephone Obstetrics [place] [id number] Loida Hall RN Social History Tobacco Use [...] Telephone Encounter - Loida Hall RN - 03/18/2023 8:54 AM EDT Patient admitted to in labor documented in this encounter Plan of Treatment Not on file documented as of this encounter Visit Diagnoses Not on filedocumented in this encounter Care Teams Cost Accountant Relationship Specialty Start Date End Date Analisa Martinez PA [address] [place] [address] PCP - General 11/30/22 documented as of this encounter
--- OUTSIDE RECORDS SUMMARY | 2024-05-04 18:59 | XMS_ITS | Encounter Summary ---
[place] [address] Care Team Providers Care Seating Upholsterer Name Role Phone Analisa Martinez Primary Care Provider [phone] Encounter Details Date Type Department Care Team (Late st Contact Info) Description 02/15/2023 Telephone Obstetrics [place] [address] Loida Hall RN Social History [...] Telephone Encounter - Loida Hall RN - 02/15/2023 10:52 AM EDT Returned call to Isabel Julian [place] 28w2d [facility] patient Isabel called with questions about gtt, wanted to know how long she be fasting before the test. Returned call and let Isabel know that it is not necessary to fast before the test. documented in this encounter Plan of Treatment Not on file documented as of this encounter Visit Diagnoses Not on filedocumented in this encounter Care Teams Seating Upholsterer Relationship Specialty Start Date End Date Analisa Martinez PA [address] [place] [address] PCP - General 11/30/22 documented as of this encounter
--- OUTSIDE RECORDS SUMMARY | 2024-05-04 18:59 | XMS_ITS | Encounter Summary ---
Author Organization [facility] [place] [address] Care Team Providers Care Cdl Dedicated Truck Driver Name Role Phone Analisa Martinez Primary Care Provider [phone] Reason for Visit * Reason Comments Routine Visit Encounter Details Date Type Department Care Team (Late st Contact Info) Description 02/19/2023 11:00 AM EDT Routine Obstetrics [place] [address] Casey Armendariz MD [facility] [address] OBSTETRICS [place] [address] GA: 28w6d Social History Tobacco Use Types Packs/Day Years [...] Sign Reading Time Taken Comments Blood Pressure 98/64 02/19/2023 10:41 AM EDT Pulse - - Temperature - - Respiratory Rate - - Oxygen Saturation - - Inhaled Oxygen Concentration - - Weight 99.4 kg (219 lb 3.2 oz) 02/19/2023 10:41 AM EDT Height - - Body Mass Index 38.84 11/30/2022 4:24 PM EST documented in this encounter Progress Notes * Casey Armendariz MD - 02/19/2023 11:00 AM EDT 27 yo at 28w6d with prior c/section x 2 and a noted very think lower uterine segment at thetime of her 2nd c/section. Planned c/section at 36w6d (Scheduled for 04/16/23) Moving to 04/12. Will need beta methasone in advance. Desires sterilization. State papers signed 11/30/22 and is in Media tab. Will need a course of beta methasone prior to delivery. US today: Lower uterine segment. 1.2mm-1.5mm at the thinnest EFW = 91%. Normal AMILCAR. documented in this encounter Plan of Treatment Not on file documented as of this encounter Visit Diagnoses Diagnosis Previous delivery affecting Previous delivery, unspecified as to episode of care or not applicable documented in this encounter Care Teams Cdl Dedicated Truck Driver Relationship Specialty Start Date End Date Analisa Martinez [place] [address] PCP - General 11/30/22 documented as of this encounter
--- OUTSIDE RECORDS SUMMARY | 2024-05-04 18:59 | XMS_ITS | Encounter Summary ---
Author Organization [facility] Address [facility] [address] Care Team Providers Care Service Engine Repairer Name Role Phone Analisa Martinez Primary Care Provider [phone] Encounter Details Date Type Department Care Team (Latest Contact Info) Description 03/22/2023 Travel Social History Tobacco Use Types Packs/Day [...] on filedocumented in this encounter Care Teams Service Engine Repairer Relationship Specialty Start Date End Date Analisa [place] [address] PCP - General 11/30/22 documented as of this encounter
--- OUTSIDE RECORDS SUMMARY | 2024-05-04 19:00 | XMS_ITS | Encounter Summary ---
Author Organization [facility] Address [facility] [place] [address] Care Team Providers Care Cosmetics Demonstrator Name Role Phone Melody Koenig MD Primary Care Provider [phone] Reason for Visit * Reason Comments TeleHealth * Consultation (Routine) - Closed Specialty Diagnoses / Procedures Referred By Contac t Referred To Contact Obstetrics and Gynecology Diagnoses History of uterine scar from previous surgery Encounter for supervision of normal , antepartum, unspecified Tova Teran[address] [address] [facility] [employer]ler Skate [address] [place] [address] Referral ID Status Reason Start Date Expiration Date V isits Requested Visits Authorized [id number] Closed Consult, Test & Treat PCP Updated and/or Approved 10/30/2022 10/30/2023 6 6 Encounter Details Date Type Department Care Team (Latest Contact Info) Description 11/17/2022 11:15 AM EST TH Visit (TeleHealth) Obstetrics [place] [address] Tan Sanches MD [facility] [address] OBSTETRICS [place] [address] Previous delivery affecting , antepartum; Dehiscence of old uterine scar with extension before onset of labor, delivered Social History Tobacco Use Types Packs/Day Years Used Date Smoking Tobacco: Every Day Cigarettes Smokeless Tobacco: Never Tobacco Cessation:Ready to Q uit: Not Asked; Counseling Given: Not Answered Comments Yes Sex and Gender Information Value Date Recorded Sex Assigned at Not on file Gender Identity Not on file Sexual Orientation Not on file documented as of this encounter Last Filed Vital Signs Vital Sign Reading Time Taken Comments Blood Pressure - - Pulse - - Temperature - - Respiratory Rate - - Oxygen Saturation - - Inhaled Oxygen Concentration - - Weight 99.3 kg (219 lb) 11/06/2022 5:18 PM EST Height 160 cm (5' 3) 11/06/2022 5:18 PM EST Body Mass Index 38.79 11/06/2022 5:18 PM EST documented in this encounter Progress Notes * Cait Elaine LNA - 11/17/2022 11:15 AM EST ____ Patient not reached __x__Patient reached and the following information was reviewed/obtained per protocol. _x__Confirmed patient name and date of _x__Confirmed tele med appt (Virtual visit) is downloaded and functioning _x__Confirmed location of patient- TeleVisit is taking place in [place]_x_ [place]__[place]__ [place]__ If not on [facility], working on signing up for my Confirmed has completed any pre-visit questionnaires If has not received required previsit questionnaires, send via [facility] __x_Reviewed medications, allergies, pharmacy, pain/depression, education _x__Documented height/weight/LMP Other information or concerns: * Tan Sanches MD - 11/17/2022 11:15 AM EST Telehealth Visit: Asked by Tova Teran CNM, to see this 27 yo at 13w5d for MFM consultation with prior c/section x2 and a noted very thin lower uterine segment at the time of her second c/section. Pt reports she was just in the ED with pelvic joint pain and low abdominal pain. She had a ultrasound. I do not have access to these records at this time. 10/22/2014: 40 weeks C/Section for failure to progress. 6lbs 13 oz. 03/08/2017: Planned c/section that occurred during active labor at 39+ weeks. 5lbs 9oz (IUGR A review of the operative note from the patients 2nd c/section revealed that the lower uterine segmant was very thin: There was noted to be a very thin lower uterine segment approximately 2-3 mm thick. The operative note seems to reveal a good closure of the hysterotomy: The low uterine incision wsa closed with a 0 chromic running locked layer, a second imbricating layer wsa sued to obtain excellent hemostasis and to support the lower uterine segment 2) Joint pain: Lots of joint pain with last . Some inbetween and now again lots of joint pain. 3) Prior mild IUGR: 2nd baby was 5lb 9oz at 39+ weeks. Child is doing well. A/P: 27 yo at 13w5d with prior c/section x2 with suspicion for occult uterine scar separation at the time of her last c/section. Last had IUGR. Pt also has significant joint pain. - Recommend evaluation of myometrial thickness at time of anatomic survey and then again in the 3rdtrimester. I'm hopeful, based on the operative report, that the lower uterine segment was well built up at the time of the uterine closure during her most recent c/section. If it is particularly thin, it would be reasonable to consider a delivery that is earlier than usual. - Given her hx/o joint pain and IUGR, I think a bit of an evaluation for Lupus makes sense. I recommend she come for an in-person visit later this week for a bedside US and labs. MD Michelle 20 minutes of this 30 minute consult was spent directly counseling the patient. documented in this encounter Plan of Treatment Not on file documented as of this encounter Results * US OB Detailed [...] who have questions, please contact the health client care representative that requested your imaging first. ? Monika Lindsay, Staff Physician Electronically Signed Final Report ?? 12/25/2022 11:23 am Narrative 12/25/2022 11:24 AM EDT OBSTETRICS REPORT ?(Signed Final 12/25/2022 11:23 am) PATIENT INFO: ID #: ? [id number] ?: ??[birth year] (27 yrs)(F) Name: ? DENISE YOUNG ? Visit Date: 12/25/2022 08:38 am PERFORMED BY: Performed By: ? Marcela Edward RDMS Attending: ?Monika Lindsay MD Referred By: ?TAN SANCHES Location: ? [place] SERVICE(S) PROVIDED: [facility] - Detailed Morphology - [id number] ? [id number] UOBTVCER - Transvaginal ??2nd Trimester - ?59000 Cervical Length - [id number] INDICATIONS: 20 weeks gestation of ?Z3A.20 History [...] Arch: ? Visualized SVC: ? Visualized Cardiac Oglesby: ?Visualized Diaphragm: ? Visualized 3 Vessel View: [...] 12/25/2022 11:23 am) PATIENT INFO: ID #: [id number] : [id number] (27 yrs)(F) Name: DENISE JULIAN Visit Date: 12/25/2022 08:38 am PERFORMED BY: Performed By: Marcela Edward RDMS Attending: Monika Lindsay MD Referred By: TAN SANCHES Location: [place] SERVICE(S) PROVIDED: [facility] - Detailed Morphology - [id number] UOBTVCER - Transvaginal 2nd Trimester - 46502 Cervical Length - [id number] INDICATIONS: 20 weeks gestation of Z3A.20 History [...] Visualized Ductal Arch: Visualized SVC: Visualized Cardiac Oglesby: Visualized Diaphragm: Visualized 3 Vessel View: Visualized [...] who have questions, please contact the health client care representative that requested your imaging first. Monika Lindsay, [...] delivered documented in this encounter Care Teams Cosmetics Demonstrator Relationship Specialty Start Date End Date Melody Koenig MD [address] [place] [address] PCP - General Family Medicine 10/30/22 11/29/22 documented as of this encounter
--- OUTSIDE RECORDS SUMMARY | 2024-05-04 19:00 | XMS_ITS | Encounter Summary ---
Author Organization [facility] [address] Care Team Providers Care Staff Air Tactical Officer Name Role Phone Melody Koenig MD Primary Care Provider [phone] Encounter Details Date Type Department Care Team (Latest Contact Info) Description 11/19/2022 Travel Social History Tobacco Use Types Packs/Day Years Used Date Smoking Tobacco: Every Day Cigarettes Smokeless Tobacco: Never Comments Yes Sex and Gender Information Value Date Recorded Sex Assigned at Not on file Gender Identity Not on file Sexual Orientation Not on file documented as of this encounter Plan of Treatment Not on file documented as of this encounter Visit Diagnoses Not on filedocumented in this encounter Care Teams Staff Air Tactical Officer Relationship Specialty Start Date End Date Melody Koenig MD [address] [place] [address] PCP - General Family Medicine 10/30/22 11/29/22 documented as of this encounter
--- OUTSIDE RECORDS SUMMARY | 2024-05-04 19:00 | XMS_ITS | Encounter Summary ---
Author Organization [facility] Address [address] [place] [address] Care Team Providers Care Health Information Manager Name Role Phone Noris Tran Duncan CANTOR-C Primary Care Provider [phone] Encounter Details Date Type Department Care Team (Late st Contact Info) Description 12/22/2018 Historical Results Only [facility] [address] [place] [address] Clarissa Julian MD [address] [place] [address] Social History Tobacco Use Types Packs/Day Years Used Date Smoking Tobacco: Never Assessed Sex and Gender Information Value Date Recorded Sex Assigned at Not on file Gender Identity Not on file Sexual Orientation Not on file documented as of this encounter Plan of Treatment Not on file documented as of this encounter Procedures Procedure Name Priority Date/Time Associated Diagnosis Comments RAPID STREP GRP A; CULTURE IF NEG - PMC Routine 12/22/2018 23:15 EDT BACTERIAL CULTURE, THROAT Routine 12/22/2018 23:15 EDT documented in this encounter Results * BACTERIAL CULTURE, THROAT (12/22/2018 23:15 EDT) MICRO SPECIMEN DESCRIPTION - PMC SOURCE 12/25/2018 11:38 EDT [facility] Comment:Nasopharynx ARNALDO RESULTS/ORGANISM ID - PMC ARNALDO Results 12/25/2018 11:38 EDT [facility] Comment:NO GROUP A BETA STRE PTOCOCCI ISOLATED ARNALDO STATUS/SUSCEPTIB ILITY - PMC FINAL 12/25/2018 11:38 EDT [facility] Comment: Final 12/25/2018 Test performed [place] [address] If you have questions about this culture, please contact [facility] Micro Department at [phone]. 12/22/2018 23:1 5 EDT 12/22/2018 23:26 EDT Clarissa Julian MD MICROBIOLOGY - GEN ERAL ORDERABLES [facility] * RAPID STREP GRP A; CULTURE IF NEG - PMC (12/22/2018 23:15 EDT) GRP A STREP AG RESULTS: - PMC NEGATIVE-CULT URE WILL BE PERFORMED 12/22/2018 23:29 EDT [facility] 12/22/2018 23:1 5 EDT 12/22/2018 23:26 EDT Comment:SWAB Clarissa Julian MD MICROBIOLOGY - GEN ERAL ORDERABLES [facility] documented in this encounter Visit Diagnoses Not on filedocumented in this encounter Care Teams Health Information Manager Relationship Specialty Start Date End Date Noris Tran RPA-C [address] [place] [address] PCP - General 03/06/13 08/22/19 documented as of this encounter
--- OUTSIDE RECORDS SUMMARY | 2024-05-04 19:00 | XMS_ITS | Encounter Summary ---
Author Organization [facility] Address [address] [place] [address] Care Team Providers Care Melting Supervisor Name Role Phone Joanna Alcaraz NP Primary Care Provider [phone] Encounter Details Date Type Department Care Team (Late st Contact Info) Description 05/01/2022 Lab Requisition [facility] Pathology & Laboratory Medicine - [facility] [address] [place], [place] [address] Outr Resulting Lab, Provider Social History Tobacco Use Types Packs/Day Years Used Date Smoking Tobacco: Never Assessed Sex and Gender Information Value Date Recorded Sex Assigned at Not on file Gender Identity Not on file Sexual Orientation Not on file documented as of this encounter Plan of Treatment Not on file documented as of this encounter Procedures Procedure Name Priority Date/Time Associated Diagnosis Comments ZZCOVID-19 TEST [facility] PCR Today 04/30/2022 18:26 EDT COVID-19 TESTING Routine 04/30/2022 18:2 6 EDT documented in this encounter Results * COVID-19 TEST [facility] PCR (04/30/2022 18:26 EDT) Swab 04/30/2022 18:2 6 EDT 05/01/2022 17:42 EDT Provider Outr Resulting Lab MICROBIOLOGY - GENERAL ORDERABLES [facility] [address] [place] [address] * COVID-19 TESTING (04/30/2022 18:26 EDT) COVID-19 rt-PCR Result Negative Negative 05/02/2022 12:00 EDT [facility] Comment: This test has not been FDA cleared or approved. This test has been authorized by FDA under an EUA for use by authorized laboratories. This test has been authorized only for detection of nucleic acid from 2019-nCoV, not for any other viruses or pathogens. This test is only authorized for the duration of the declaration that circumstances exist justifying the authorization of emergency use of in vitro diagnostic tests for detection and/or diagnosis of 2019-nCoV under section 564(b)(1) of Act, 21 U.S.C ?? 360bbb-3(b) (1), unless the authorization is terminated or revoked sooner. Negative results do not preclude 2019-nCoV infection and should not be used as the sole basis for treatment or other patient management decisions. Negative results must be combined with clinical observations, patient history, and epidemiological information. Testing was performed using the thelma SARS-CoV-2 assay ([employer] on the Thelma 6800 System Performing Lab Thelma 68[address] [facility] 05/02/2022 12:00 EDT [facility] Swab 04/30/2022 18:2 6 EDT 05/01/2022 17:42 EDT Provider Outr Resulting Lab MICROBIOLOGY - GENERAL ORDERABLES [facility] [address] [place] [address] documented in this encounter Visit Diagnoses Not on filedocumented in this encounter Care Teams Melting Supervisor Relationship Specialty Start Date End Date Joanna Alcaraz NP [address] [place] [address] PCP - General 08/23/19 documented as of this encounter
--- OUTSIDE RECORDS SUMMARY | 2024-05-04 19:00 | XMS_ITS | Encounter Summary ---
Author Organization [facility] [place] [address] Care Team Providers Care Cigar Roller Name Role Phone Melody Koenig MD Primary Care Provider [phone] Reason for Referral * Consultation (Routine) - Closed Specialty Diagnoses / Procedures Referred By Contac t Referred To Contact Obstetrics and Gynecology Diagnoses History of uterine scar from previous surgery Encounter for supervision of normal , antepartum, unspecified Tova Teran CNM [address] [place] [address] [address] [place] [address] [facility] [address] [place] [address] Referral ID Status Reason Start Date Expiration Date V isits Requested Visits Authorized [id number] Closed Consult, Test & Treat PCP Updated and/or Approved 10/30/2022 10/30/2023 6 6 Encounter Details Date Type Department Care Team (Late st Contact Info) Description 10/30/2022 Transcribe Orders eDH Incoming Referrals [phone] Tova Teran CNM [address] [place] [address] [address] [place], [place] [id number] History of uterine scar from previous surgery; Encounter for supervision of normal , antepartum, unspecified Social History Tobacco Use Types Packs/Day Years Used Date Smoking Tobacco: Never Assessed Sex and Gender Information Value Date Recorded Sex Assigned at Not on file Gender Identity Not on file Sexual Orientation Not on file documented as of this encounter Plan of Treatment Scheduled Referrals Name Type Priority Associated Diagnoses Orde r Schedule Referral to Maternal Medicine Outpatient Referral Routine History of uterine scar from previous surgery Encounter for supervision of normal , antepartum, unspecified Ordered: 10/30/2022 documented as of this encounter Visit Diagnoses Diagnosis History of uterine scar from previous surgery Encounter for supervision of normal , antepartum, unspecified documented in this encounter Care Teams Cigar Roller Relationship Specialty Start Date End Date Melody Koenig MD [address] [place] [id number] PCP - General Family Medicine 10/30/22 11/29/22 documented as of this encounter
--- OUTSIDE RECORDS SUMMARY | 2024-05-04 19:00 | XMS_ITS | Encounter Summary ---
Author Organization [facility] Address [address] [place] [address] Care Team Providers Care Engagement Specialist Name Role Phone Joanna Alcaraz NP Primary Care Provider [phone] Encounter Details Date Type Department Care Team (Late st Contact Info) Description 10/29/2022 Lab Requisition [facility] Pathology & Laboratory Medicine - [address] [id number] Outr Resulting Lab, Provider Social History Tobacco [...] Procedure Name Priority Date/Time Associated Diagnosis Comments CHLAMYDIA/N. GONORRHOEAE AMPLIFIED NUCLEIC ACID Routine 10/29/2022 9:00 EST documented in this encounter Results * CHLAMYDIA/N. GONORRHOEAE AMPLIFIED RNA (10/29/2022 9:00 EST) Neisseria gonorrhoeae Result Negative Negative 10/30/2022 13:39 EST [facility] Chlamydia trachomatis Result Negative Negative 10/30/2022 13:39 EST [facility] Swab ENTIRE VAGINA / Unknown 10/29/2022 9:00 EST 10/29/2022 21:54 EST Provider Outr Resulting Lab MICROBIOLOGY - GENERAL ORDERABLES [facility] [address] [place] [address] documented in this encounter Visit Diagnoses Not on filedocumented in this encounter Care Teams Engagement Specialist Relationship Specialty Start Date End Date Joanna Alcaraz NP [address] [place] [phone] PCP - General 08/23/19 documented as of this encounter
--- OUTSIDE RECORDS SUMMARY | 2024-05-04 19:00 | XMS_ITS | Encounter Summary ---
[facility] [place] [address] Care Team Providers Care Metal Temperer Name Role Phone Melody Koenig MD Primary Care Provider [phone] Reason for Visit * Reason Comments Follow-up Encounter Details Date Type Department Care Team (Late st Contact Info) Description 11/20/2022 10:30 AM EST Office Visit Obstetrics [place] [address] Casey Armendariz MD [facility] DR OBSTETRICS [place] [address] , unspecified gestational age; Arthralgia, unspecified joint; Uterine fibroid in Social History Tobacco Use Types Packs/Day Years Used Date Smoking Tobacco: Every Day Cigarettes Smokeless Tobacco: Never Comments Yes Sex and Gender Information Value Date Recorded Sex Assigned at Not on file Gender Identity Not on file Sexual Orientation Not on file documented as of this encounter Last Filed Vital Signs Vital Sign Reading Time Taken Comments Blood Pressure 110/62 11/20/2022 10:15 AM EST Pulse - - Temperature - - Respiratory Rate - - Oxygen Saturation - - Inhaled Oxygen Concentration - - Weight 99.1 kg (218 lb 8 oz) 11/20/2022 10:15 AM EST Height - - Body Mass Index 38.71 11/06/2022 5:18 PM EST documented in this encounter Progress Notes * Casey Armendariz MD - 11/20/2022 10:30 AM EST 27 yo at 14w1d with prior c/sectionx2 and noted very thin lower uterine segment during her last c/section. Also hx/o IUGR, Pelvic joint pain and low abdominal pain. Pt seen 3 days ago in ED of [facility] for pelvic joint pain and low abdominal/suprapubic pain. US there reported a prominence of the lower uterine segment c/w fibroid. Today, pt reports ongoing hip and pelvic girdle pain as well as low suprapubic pain. Bedside US with 3-4cm anterior uterine wall mass c/w fibroid vs. Uterine contraction. Lower uterinesegment inferior to this mass appeared normal. 1) Lower uterine segment thinning - Plan evaluation of lower uterine segment at the time of formal ultrasound 2) Hx/o IUGR Plan serial growth scans in the 3rd trimester 3) Joint trouble. First time at 6 months in prevous . Couldn't move much by 8 months. Primary joints involved: Pelvis and hips and lower back. Improved after delivery, but never fully resolved. Has become exacerbated during this already. Gets tendonitis in ankles and wrists. No rashes. No family hx/o lupus. Grandfather with RA. Grandmother with fibromyalgia. No hx/o of VTE. No family hx/o VTE Joint pain with hx/o IUGR makes me a bit concerned about autoimmune disease A/P: In a patient with joint pain and history of IUGR, it is worth considering autoimmune disease. Plan: ELHAM, T+S, RA factor CMP and hemogram. Will arrange detailed morphology US at 18-20 weeks. MD Michelle 10 minutes was spent performing this follow up [facility] visit. Addendum: ELHAM and Rheumatoid Factor are negative. CMP normal. Hemogram significant for very mild thrombocytopenia (plts = 141K). documented in this encounter Plan of Treatment Not on file documented as of this encounter Procedures Procedure Name Priority Date/Time Associated Diagnosis Comments TYPE AND SCREEN VALIDITY Routine 11/20/2022 12:30 PM EST ABORH RECHECK STATUS Routine 11/20/2022 12:30 PM EST HC HEMOGRAM Routine 11/20/2022 12:30 PM EST , unspecified gestational age ABO/RH TYPING Routine 11/20/2022 12:30 PM EST , unspecified gestational age ANTIBODY SCREEN Routine 11/20/2022 12:30 PM EST , unspecified gestational age TYPE AND SCREEN ([facility]/SHANTEL) Routine 11/20/2022 12:30 PM EST , unspecified gestational age HC RHEUMATOID FACTOR Routine 11/20/2022 12:30 PM EST Arthralgia, unspecified joint HC DNA AB DS ([facility]) Routine 11/20/2022 12:30 PM EST Arthralgia, unspecified joint COMPREHENSIVE METABOLIC PANEL Routine 11/20/2022 12:30 PM EST Arthralgia, unspecified joint documented in this encounter Results * Type and Screen Validity (11/20/2022 12:30 PM EST) T&S only valid at [facility] Comment:This Type and Screen result is only valid at the [facility] Blood 11/20/2022 12:3 0 PM EST 11/20/2022 12:40 PM EST Narrative Resulting Agency Comment Spec In Lab Casey Armendariz MD BLOOD BANK LAB ORDER SHABNAM Performing Organization Address City/[facility]/ZIP Co de Phone Number [facility] [place] [address] * ABORH Recheck Status (11/20/2022 12:30 PM EST) ABORH Recheck Order Order Placed [facility] ABORH Type Recheck Not Performed [facility] Blood 11/20/2022 12:3 0 PM EST 11/20/2022 12:40 PM EST Narrative Resulting Agency Comment Spec In Lab Casey Armendariz MD BLOOD BANK LAB ORDER SHABNAM [facility] [place] [address] * Antibody screen (11/20/2022 12:30 PM EST) Pathologist [facility] Ab Screen Interp Negative [facility] Expires at [id number] on: 11/23/2022 [facility] Blood 11/20/2022 12:3 0 PM EST 11/20/2022 12:40 PM EST Narrative Resulting Agency Comment Spec In Lab Casey Armendariz MD BLOOD BANK LAB ORDER SHABNAM [facility] [place] [address] * ABO/Rh Typing (11/20/2022 12:30 PM EST) Pathologist [facility] ABORH Type A Pos [facility] Blood 11/20/2022 12:3 0 PM EST 11/20/2022 12:40 PM EST Narrative Resulting Agency Comment Spec In Lab Casey Armendariz MD BLOOD BANK LAB ORDER SHABNAM Performing Organization Address City/[facility]/ZIP Co de Phone Number [facility] [place] [address] * (ABNORMAL) Hemogram (11/20/2022 12:30 PM EST) Pathologist [facility] White Blood Cell 9.7(H) 4.0 - 9.5 x10(3)/mc L [facility] Red Blood Cell 4.37 4.00 - 5.21 x10(6)/mc L [facility] Hemoglobin 13.2 11.7 - 15.5 g/dL [facility] Hematocrit 38.6 35.7 - 45.8 % [facility] Mean Cell Volume 88.3 82.6 - 94.4 fL [facility] Mean Cell Hemoglobin 30.2 27.1 - 32.0 pg [facility] Mean Cell Hemoglobin Concentration 34.2 31.7 - 35.0 g/dL [facility] Platelet 141(L) 145 - 357 x10(3)/mc L [facility] RDW Standard Deviation 43.2 37.0 - 46.0 fL [facility] RDW coefficient of variation 13.2 11.5 - 14.1 % [facility] Mean Platelet Volume 12.3 7.6 - 12.9 fL [facility] NRBC% auto 0.0 % [facility] NRBC Absolute 0.000 0.000 - 0.000 x10(3)/mc L [facility] Blood 11/20/2022 12:3 0 PM EST 11/20/2022 12:37 PM EST Narrative Resulting Agency Comment Spec In Lab Casey Armendariz MD HEMATOLOGY ORDERABLE S [facility] [place] [address] * (ABNORMAL) Comprehensive metabolic panel (non-fasting) (11/20/2022 12:30 PM EST) Glucose 82 65 - 199 mg/dL [facility] Comment:Diabetes: >=200 mg/d L plus symptoms Blood Urea Nitrogen 5(L) 8 - 18 mg/dL [facility] Creatinine 0.50(L) 0.70 - 1.20 mg/dL [facility] Sodium 137 135 - 145 mmol/L [facility] Potassium 4.4 3.5 - 5.0 mmol/L [facility] Comment: Please note: ??Patients with WBC >100,000 may have falsely elevated Potassium levels. ??For accurate Potassium quantification in these patients send serum separator tube (gold top) for subsequent determinations. ??Contact the Clinical Chemistry Laboratory if there are any questions. Chloride 104 98 - 107 mmol/L [facility] Carbon Dioxide 23 22 - 31 mmol/L [facility] Anion Gap 10 5 - 15 mmol/L [facility] Calcium 9.5 8.5 - 10.5 mg/dL [facility] Protein, Total 7.0 6.1 - 8.0 g/dL [facility] Albumin 4.0 3.2 - 5.2 g/dL [facility] Aspartate Aminotransferase 13 0 - 30 unit/L [facility] Alanine Aminotransferase 13 0 - 30 unit/L [facility] Alkaline Phosphatase 51 35 - 105 unit/L [facility] Bilirubin, Total <0.2(L) 0.2 - 1.3 mg/dL [facility] Est Glomerular Filtration Rate 131 >=60 mL/min/1. 73 m?? [facility] Comment: This patient's estimated GFR was [...] and symptoms in addition to eGFR. Blood 11/20/2022 12:3 0 PM EST 11/20/2022 12:37 PM EST Narrative Resulting Agency Comment Spec In Lab Casey Armendariz MD CHEMISTRY ORDERABLES Performing Organization Address [facility] Co de Phone Number [facility] [place] [address] * Rheumatoid factor, quant (11/20/2022 12:30 PM EST) Rheumatoid Factor <10 <=14 IU/mL [facility] Blood 11/20/2022 12:3 0 PM EST 11/20/2022 12:37 PM EST Narrative Resulting Agency Comment Spec In Lab Casey Armendariz MD CHEMISTRY ORDERABLES Performing Organization Address [facility] [place] [address] * ELHAM Antibody Screen (11/20/2022 12:30 PM EST) ELHAM Ab Screen Negative Negative [facility] Comment: This antinuclear antibody (ELHAM) screen is a qualitative test performed using a fluoroenzyme immunoassay on the Dailymotion 250 analyzer. This screen is designed to detect antibodies to U1RNP, SS-A/Ro, SS-B/La, centromere B, Scl-70, Tammy-1, and Sm(Christensen) proteins in serum samples. Antibodies to other nuclear antibodies will not be detected with this assay. This ELHAM screen is also performed in concert with a quantitative for IgG antibodies to dsDNA. Please note that as of 07/21/2022 that this testing is performed by the Special Chemistry Laboratory at [facility]. This change in testing location is associated with a change is testing method and reference intervals. Please review the results of this test in association with the posted reference intervals. dsDNA Ab 0.6 <=15.0 IU/mL [facility] Comment: <10 negative 10-15 equivocal >15 positive This dsDNA antibody result was generated using a fluoroenzyme immunoassay on the Dailymotion 250 analyzer. This quantitative test is designed to detect IgG antibodies directed against double stranded DNA in human serum. The presence of antibodies that recognize dsDNA is a highly specific marker for systemic lupus erythematosus. Please note that as of 07/21/2022 that this testing is performed by the Special Chemistry Laboratory at [facility]. This change in testing location is associated with a change is testing method and reference intervals. Please review the results of this test in association with the posted reference intervals. Blood 11/20/2022 12:3 0 PM EST 11/20/2022 1:46 PM EST Narrative Resulting Agency Comment Spec In Lab Casey Armendariz MD LAB SEND OUT ORDERAB LES [facility] [place] [address] documented in this encounter Visit Diagnoses Diagnosis , unspecified gestational age Arthralgia, unspecified joint Uterine fibroid in Tumors of body of uterus, unspecified as to episode of care in documented in this encounter Care Teams Metal Temperer Relationship Specialty Start Date End Date Melody Koenig MD [address] [place] [address] PCP - General Family Medicine 10/30/22 11/29/22 documented as of this encounter
--- OUTSIDE RECORDS SUMMARY | 2024-05-04 19:00 | XMS_ITS | Encounter Summary ---
Author Organization [facility] Address [address] [place] [address] Care Team Providers Care Emergency Department Nurse Name Role Phone Joanna Alcaraz NP Primary Care Provider [phone] Encounter Details Date Type Department Care Team (Late st Contact Info) Description 06/29/2022 Lab Requisition [facility] Pathology & Laboratory Medicine - [facility] [address], [place] [address] Outr Resulting Lab, Provider Social History Tobacco [...] Comments ZZCOVID-19 TEST [facility] PCR Today 06/28/2022 21:16 EDT COVID-19 TESTING Routine 06/28/2022 21:1 6 EDT documented in this encounter Results * COVID-19 TEST [facility] PCR (06/28/2022 21:16 EDT) Swab 06/28/2022 21:1 6 EDT 06/29/2022 17:35 EDT Provider Outr Resulting Lab MICROBIOLOGY - GENERAL ORDERABLES [facility] [address] [place] [address] * COVID-19 TESTING (06/28/2022 21:16 EDT) COVID-19 rt-PCR Result Negative Negative 06/30/2022 13:47 EDT [facility] Comment: This test has not [...] was performed using the thelma SARS-CoV-2 assay ([employer] on the Thelma 6800 System Performing Lab Thelma [address] [facility] Lab 06/30/2022 13:47 EDT [facility] Swab 06/28/2022 21:1 6 EDT 06/29/2022 17:35 EDT Provider Outr Resulting Lab MICROBIOLOGY - GENERAL ORDERABLES [facility] [address] [place] [address] documented in this encounter Visit Diagnoses Not on filedocumented in this encounter Care Teams Emergency Department Nurse Relationship Specialty Start Date End Date Joanna Alcaraz NP [address] [place] [phone] PCP - General 08/23/19 documented as of this encounter
--- OUTSIDE RECORDS SUMMARY | 2024-05-04 19:00 | XMS_ITS | Patient Health Record ---
Author Organization [facility] Address [address] [place] [address] Care Team Providers Care Technology Solutions Architect Name Role Phone DESTINI DAMON MD Primary [...] Insured Coverage Start Date Coverage End Date [facility] [address] [place], [place] [id number] December, Child - Insured has Financial Responsibility [place] [address] DENISE MENDEZ Self - patient is the insured MEDICAL (GENERAL) HISTORY Medical History History ICD Code Anxiety PTSD Fatigue Surgical History Surgery Date(Month/Year)
--- OUTSIDE RECORDS SUMMARY | 2024-05-04 19:00 | XMS_ITS | Encounter Summary ---
Author Organization [facility] Address [address] [place] [address] Care Team Providers Care Wind Power Project Manager Name Role Phone Joanna Alcaraz NP Primary Care Provider [phone] Encounter Details Date Type Department Care Team (Late st Contact Info) Description 10/31/2020 Lab Requisition [facility] Pathology & Laboratory Medicine - [facility] [address] [place], [place] [address] Outr Resulting Lab, Provider Social History Tobacco [...] Comments ZZCOVID-19 TEST [facility] PCR Today 10/31/2020 16:45 EST COVID-19 TESTING Routine 10/31/2020 16:4 5 EST documented in this encounter Results * COVID-19 TEST [facility] PCR (10/31/2020 16:45 EST) Swab ENTIRE NASOPHARYNX / Unknown 10/31/2020 16:45 EST 10/31/2020 21:01 EST Provider Outr Resulting Lab MICROBIOLOGY - GENERAL ORDERABLES [facility] [address] [place] [address] * COVID-19 TESTING (10/31/2020 16:45 EST) COVID-19 rt-PCR Result Negative Negative 11/01/2020 18:[address] [facility] Comment: This test has [...] clinical observations, patient history, and epidemiological information. This test was developed and its performance characteristics determined by [facility]. It has not been cleared or approved by the US Food and Drug Administration. FDA does not require this test to go through premarket FDA review. This test is used for clinical purposes. It should not be regarded as investigational or for research. This laboratory is certified under the Clinical Laboratory Improvement Amendments (CLIA) as qualified to perform high complexity clinical laboratory testing. This test is based on the [facility] COVID-19 Emergency Use Authorization (EUA) assay, with minor modification as defined by the FDA Performed on the Applied NexImmuneo 7 Flex RT-PCR System. Performing Lab [facility] Lab 11/01/2020 18:[address] [facility] Swab 10/31/2020 16:4 5 EST 10/31/2020 21:01 EST Provider Outr Resulting Lab MICROBIOLOGY - GENERAL ORDERABLES [facility] [address] [place] [address] documented in this encounter Visit Diagnoses Not on filedocumented in this encounter Care Teams Wind Power Project Manager Relationship Specialty Start Date End Date Joanna Alcaraz NP [address] [place] [phone] PCP - General 08/23/19 documented as of this encounter
--- OUTSIDE RECORDS SUMMARY | 2024-05-04 19:00 | XMS_ITS | Encounter Summary ---
Author Organization [facility] Address [address] [place] [address] Care Team Providers Care Voting Machine Repairer Name Role Phone Nolberto Tranmeng WILKERSON Primary Care Provider [phone] Encounter Details Date Type Department Care Team (Late st Contact Info) Description 02/01/2017 Results Only Imaging [facility] Family Medicine - [place] [address], [place] [address] Analisa Elkins CNM [address] [place] [address] Social History Tobacco Use Types Packs/Day Years Used Date Smoking Tobacco: Never Assessed Sex and Gender Information Value Date Recorded Sex Assigned at Not on file Gender Identity Not on file Sexual Orientation Not on file documented as of this encounter Plan of Treatment Pending Results Name Type Priority Associated Diagnoses Date /Time OUTSIDE IMAGES - US BODY Imaging 02/01/2017 10:58 EDT OUTSIDE IMAGES - US BODY Imaging 02/01/2017 10:58 EDT OUTSIDE IMAGES - US BODY Imaging 02/01/2017 10:58 EDT OUTSIDE IMAGES - US BODY Imaging 02/01/2017 10:58 EDT OUTSIDE IMAGES - US BODY Imaging 02/01/2017 10:58 EDT documented as of this encounter Procedures Procedure Name Priority Date/Time Associated Diagnosis Comments LONG TERM DETAILED 02/01/2017 15:41 EDT documented in this encounter Results * LONG TERM DETAILED (02/01/2017 15:41 EDT) Anatomical Region Laterality Modality Other 02/01/2017 15:4 1 EDT 02/01/2017 15:58 EDT Narrative 02/01/2017 15:58 EDT Indication IUGR. BMI 42.1. History ======= General History Height 157 cm Height (ft) ?5 ft Height (in) ?2 in Previous Outcomes ?2 Para ?? 1 López children born (T) ?1 López living children (L) ??1 Other: Mode of last delivery: Maternal Assessment Height 157 cm Height (ft) ?5 ft Height (in) ?2 in Physical Exam Initial weight 104 kg Initial weight (lb) ?230 lb Initial BMI ?42.07 kg/m? Number of fetuses: 1. Dating ======= Method of dating: ??based on the external assessment Stated Dating on: ?08/10/2016 GA at stated dating date 9 w + 1 d GA by stated dating ??34 w + 1 d CHEVY by stated dating: ?03/14/2017 Ultrasound examination on: 02/01/2017 GA by U/S based upon: ??AC, BPD, Femur, HC GA by U/S ??32 w + 6 d CHEVY by U/S: ?03/23/2017 Assigned: ??Dating performed on 02/01/2017, based on the external assessment (on 08/10/2016) Assigned GA ?34 w + 1 d Assigned CHEVY: ??03/14/2017 General Evaluation Cardiac activity: Present. FHR 148 bpm. movements: visualized. Presentation: cephalic, spine maternal left. Placenta: posterior. Umbilical cord: Cord vessels: 3 vessel cord. Cord insertion: placental insertion: normal. Amniotic fluid: Amount of AF: normal. MVP 5.3 cm. AMILCAR 14.9 cm. Q1 4.2 cm, Q2 3.3 cm, Q3 5.3 cm, Q4 2.2 cm. Biometry Biometry BPD ?81.9 mm 16% 32w 6d Hadlock OFD ?103.6 mm ?44% 33w 6d Alba HC 295.6 mm ?12% 31w 6d [place] AC 283.9 mm ?11% 32w 3d Hadlock Femur ??67.3 mm 80% 34w 2d Alba Cerebellum tr ??43.6 mm 85% 35w 0d Santos CM 8.8 mm ??84% Nicolaides Humerus ?57.1 mm 33% 33w 1d Alba EFW ?2,127 g 17% Lazcano Calculated by: Hadlock ([id number]) EFW (lb) ?? 4 lb EFW (oz) ?? 11 oz Cephalic index 0.79 ?34% Nicolaides HC / AC ?1.04 FL / BPD ?? 0.82 FL / AC ?0.24 MVP ?5.3 cm AMILCAR ?14.9 cm FHR ?148 bpm Head / Face / Neck Rail Transportation Tabeler 3.9 mm Extremities / Bony Struc Radius 49.3 mm 58% Chitty Ulna ?? 54.6 mm 43% 34w 2d Alba Tibia ??58.4 mm 69% 34w 1d Alba Fibula 58.4 mm 71% 36w 3d Alba Foot ?? 59.8 mm <1% Chitty Anatomy Cranium: ?? normal Lateral ventricles: ?normal Choroid plexus: ?normal Midline falx: ??normal Cavum septi pellucidi: normal Cerebellum: ?normal Cisterna magna: ?normal Parenchyma: ?normal Cerebellar lobes: ??normal Vermis: ?normal Neck: ??normal Nuchal fold: ?? normal Lips: ??normal Profile: ?? normal Nose: ??normal Maxilla: ?? normal Mandible: ??normal 4-chamber view: ?normal RVOT: ??normal LVOT: ??normal Situs: normal Aortic arch: ?? normal SVC: ?? normal IVC: ?? normal 3-vessel view: normal 7-ymczdd-okrmadp view: normal Rt lung: ?? normal Lt lung: ?? normal Diaphragm: normal Cord insertion: ?normal Stomach: ?? normal Bladder: ?? normal Genitals: ??normal Abdom. wall: ?? normal Rt kidney: normal Lt kidney: normal Liver: normal Cervical spine: ?normal Thoracic spine: ?normal Lumbar spine: ??normal Sacral spine: ??normal Skeleton: ??normal Arms: ??normal Legs: ??normal Rt arm: ?normal Lt arm: ?normal Rt hand: ?? normal Lt hand: ?? normal Rt leg: ?normal Lt leg: ?normal Rt foot: ?? normal Lt foot: ?? normal Gender: ?male Wants to know gender: ??yes Maternal Structures Uterus / Cervix Uterus: ?Appears normal Cervix: ?Appears normal Ovaries / Tubes / Adnexa Rt ovary: ??Visualized, normal appearance Lt ovary: ??Visualized, normal appearance Method ======== Transabdominal ultrasound examination, Voluson E10. View: Limited by maternal habitus and by advanced gestational age. Impression [id number] Obstetrical ultrasound with and maternal evaluation, including detailed anatomic examination This is a lópez gestation. Biometry is symmetric and consistent with earlier ultrasound dating. The EFW is at 17%. Anatomy appears normal as noted above; however, ultrasound cannot detect all anomalies. As per the SMFM guidelines, the following were evaluated and were normal: the cerebellum (including lobes and vermis), facial profile, the chest (including examination for masses, effusion, integrity of both sides of the diaphragm and lung parenchyma), abdomen for ascites, 12-long bones with normal architecture/position of limbs, hands and feet, placental insertion site of the umbilical cord and placenta for masses. The amniotic fluid volume is normal. There is trunk and extremity movement noted. 15710 Umbilical artery Doppler study Doppler waveforms of the umbilical artery are normal. Given the EFW appears > 10%, the biometry is symmetric, the fluid and Dopplers are normal, there is no evidence of poor growth or placental insufficiency at this time. Follow-up Follow-up as clinically indicated. Procedure Note Tello Mc MD - 02/01/2017 Indication IUGR. BMI 42.1. History ======= General History Height 157 cm Height (ft) 5 ft Height (in) 2 in Previous Outcomes 2 Para 1 López children born (T) 1 López living children (L) 1 Other: Mode of last delivery: Maternal Assessment Height 157 cm Height (ft) 5 ft Height (in) 2 in Physical Exam Initial weight 104 kg Initial weight (lb) 230 lb Initial BMI 42.07 kg/m? Number of fetuses: 1. Dating ======= Method of dating: based on the external assessment Stated Dating on: 08/10/2016 GA at stated dating date 9 w + 1 d GA by stated dating 34 w + 1 d CHEVY by stated datin03/14/2017 Ultrasound examination on: 02/01/2017 GA by U/S based upon: AC, BPD, Femur, HC GA by U/S 32 w + 6 d CHEVY by U/S: 03/23/2017 Assigned: Dating performed on 02/01/2017, based on the external assessment (on 08/10/2016) Assigned GA 34 w + 1 d Assigned CHEVY: 03/14/2017 General Evaluation Cardiac activity: Present. FHR 148 bpm. movements: visualized. Presentation: cephalic, spine maternal left. Placenta: posterior. Umbilical cord: Cord vessels: 3 vessel cord. Cord insertion: placental insertion: normal. Amniotic fluid: Amount of AF: normal. MVP 5.3 cm. AMILCAR 14.9 cm. Q1 4.2 cm, Q2 3.3 cm, Q3 5.3 cm, Q4 2.2 cm. Biometry Biometry BPD 81.9 mm 16% 32w 6d Hadlock OFD 103.6 mm 44% 33w 6d Alba HC 295.6 mm 12% 31w 6d [place] AC 283.9 mm 11% 32w 3d Hadlock Femur 67.3 mm 80% 34w 2d Alba Cerebellum tr 43.6 mm 85% 35w 0d Santos CM 8.8 mm 84% Nicolaides Humerus 57.1 mm 33% 33w 1d Alba EFW 2,127 g 17% Lazcano Calculated by: Hadlock ([id number]) EFW (lb) 4 lb EFW (oz) 11 oz Cephalic index 0.79 34% Nicolaides HC / AC 1.04 FL / BPD 0.82 FL / AC 0.24 MVP 5.3 cm AMILCAR 14.9 cm FHR 148 bpm Head / Face / Neck Rail Transportation Tabeler 3.9 mm Extremities / Bony Struc Radius 49.3 mm 58% Chitty Ulna 54.6 mm 43% 34w 2d Alba Tibia 58.4 mm 69% 34w 1d Alba Fibula 58.4 mm 71% 36w 3d Alba Foot 59.8 mm <1% Chitty Anatomy Cranium: normal Lateral ventricles: normal Choroid plexus: normal Midline falx: normal Cavum septi pellucidi: normal Cerebellum: normal Cisterna magna: normal Parenchyma: normal Cerebellar lobes: normal Vermis: normal Neck: normal Nuchal fold: normal Lips: normal Profile: normal Nose: normal Maxilla: normal Mandible: normal 4-chamber view: normal RVOT: normal LVOT: normal Situs: normal Aortic arch: normal SVC: normal IVC: normal 3-vessel view: normal 4-mcfloi-ddglssz view: normal Rt lung: normal Lt lung: normal Diaphragm: normal Cord insertion: normal Stomach: normal Bladder: normal Genitals: normal Abdom. wall: normal Rt kidney: normal Lt kidney: normal Liver: normal Cervical spine: normal Thoracic spine: normal Lumbar spine: normal Sacral spine: normal Skeleton: normal Arms: normal Legs: normal Rt arm: normal Lt arm: normal Rt hand: normal Lt hand: normal Rt leg: normal Lt leg: normal Rt foot: normal Lt foot: normal Gender: male Wants to know gender: yes Maternal Structures Uterus / Cervix Uterus: Appears normal Cervix: Appears normal Ovaries / Tubes / Adnexa Rt ovary: Visualized, normal appearance Lt ovary: Visualized, normal appearance Method ======== Transabdominal ultrasound examination, Voluson E10. View: Limited by maternal habitus and by advanced gestational age. Impression [id number] Obstetrical ultrasound with and maternal evaluation, including detailed anatomic examination This is a lópez gestation. Biometry is symmetric and consistent with earlier ultrasound dating. The EFW is at 17%. Anatomy appears normal as noted above; however, ultrasound cannot detect all anomalies. As per the SMFM guidelines, the following were evaluated and were normal: the cerebellum (including lobes and vermis), facial profile, the chest (including examination for masses, effusion, integrity of both sides of the diaphragm and lung parenchyma), abdomen for ascites, 12-long bones with normal architecture/position of limbs, hands and feet, placental insertion site of the umbilical cord and placenta for masses. The amniotic fluid volume is normal. There is trunk and extremity movement noted. [id number] Umbilical artery Doppler study Doppler waveforms of the umbilical artery are normal. Given the EFW appears > 10%, the biometry is symmetric, the fluid and Dopplers are normal, there is no evidence of poor growth or placental insufficiency at this time. Follow-up Follow-up as clinically indicated. Analisa Elkins ANAYA IMG US LONG TERM ORDERABLE S documented in this encounter Visit Diagnoses Not on filedocumented in this encounter Care Teams Voting Machine Repairer Relationship Specialty Start Date End Date Noris Tran RPA-C [address] [place] [address] PCP - General 03/06/13 08/22/19 documented as of this encounter
--- OUTSIDE RECORDS SUMMARY | 2024-05-04 19:00 | XMS_ITS | Encounter Summary ---
Author Organization [facility] Address [address] [place] [address] Care Team Providers Care Bridge Painter Name Role Phone Joanna Alcaraz NP Primary Care Provider [phone] Encounter Details Date Type Department Care Team (Late st Contact Info) Description 10/29/2022 Lab Requisition [facility] Pathology & Laboratory Medicine - [facility] [address] [place], [place] [address] Outr Resulting Lab, Provider Social History Tobacco [...] Procedure Name Priority Date/Time Associated Diagnosis Comments HOLD SST Today 10/29/2022 10:23 EST HOLD SST Today 10/29/2022 10:23 EST HEPATITIS C AB W REFLEX TO HCV RNA BY PCR Today 10/29/2022 10:23 EST HEPATITIS B SURFACE ANTIGEN Today 10/29/2022 10:23 EST documented in this encounter Results * HOLD [facility] (10/29/2022 10:23 EST) Hold Hold 10/29/2022 18:15 EST [facility] Blood VENOUS BLOOD / Unknown 10/29/2022 10:23 EST 10/29/2022 17:12 EST Provider Outr Resulting Lab LAB INFO SER VICE AND SUPPORT & PHONE RESULT [facility] [address] [place] [address] * HOLD SST (10/29/2022 10:23 EST) Hold Hold 10/29/2022 18:15 EST [facility] Blood VENOUS BLOOD / Unknown 10/29/2022 10:23 EST 10/29/2022 17:12 EST Provider Outr Resulting Lab LAB INFO SER VICE AND SUPPORT & PHONE RESULT Performing Organization Address [facility]/ZIP Co de Phone Number [facility] [address] [place] [address] * HEPATITIS B SURFACE ANTIGEN (10/29/2022 10:23 EST) Hep B Surface Ag Negative Negative 10/30/2022 9:48 EST [facility] Blood VENOUS BLOOD / Unknown 10/29/2022 10:23 EST 10/29/2022 17:12 EST Provider Outr Resulting Lab CHEMISTRY & BLOOD GAS ORDERABLES Performing Organization Address City/[facility]/ZIP Co de Phone Number [facility] [address] [place] [address] * HEPATITIS C AB W REFLEX TO HCV RNA BY PCR (10/29/2022 10:23 EST) Hep C Antibody Negative Negative 10/30/2022 10:33 EST [facility] Blood VENOUS BLOOD / Unknown 10/29/2022 10:23 EST 10/29/2022 17:12 EST Provider Outr Resulting Lab CHEMISTRY & BLOOD GAS ORDERABLES Performing Organization Address City/[facility]/ZIP Co de Phone Number [facility] [address] [place] [address] documented in this encounter Visit Diagnoses Not on filedocumented in this encounter Care Teams Bridge Painter Relationship Specialty Start Date End Date Joanna Alcaraz NP [address] [place] [address] [phone] PCP - General 08/23/19 documented as of this encounter
--- OUTSIDE RECORDS SUMMARY | 2024-05-04 19:00 | XMS_ITS | Clinical Summary ---
Author Organization [facility] Address [address] [place] [address] Care Team Providers Care Raking Machine Operator Name Role Phone Joanna Alcaraz NP Primary Care Provider [phone] Social History Tobacco Use Types Packs/Day Years Used Date Smoking Tobacco: Never Assessed Sex and Gender Information Value Date Recorded Sex Assigned at Not on file Gender Identity Not on file Sexual Orientation Not on file Plan of Treatment Health Maintenance Due Date Last Done Comments Hepatitis B Vaccine (1 of 3 - 19+ 3-dose series) 08/22 COVID-19 Vaccine ( season) 2023 Hepatitis C Screen Completed 10/29/2022 Procedures Procedure Name Priority Date/Time Associated Diagnosis Comments HEPATITIS C AB W REFLEX TO HCV RNA BY PCR Today 10/29/2022 10:23 EST from Last 3 Months or Most Recently Relevant to Health Maintenance Results * HEPATITIS C AB W REFLEX TO HCV RNA BY PCR (10/29/2022 10:23 EST) Hep C Antibody Negative Negative 10/30/2022 10:33 EST [facility] Blood VENOUS BLOOD / Unknown 10/29/2022 10:23 EST 10/29/2022 17:12 EST Provider Outr Resulting Lab CHEMISTRY & BLOOD GAS ORDERABLES [facility] [address] [place] [address] from Last 3 Months or Most Recently Relevant to Health Maintenance Care Teams Raking Machine Operator Relationship Specialty Start Date End Date Joanna Alcaraz NP [address] [place] [phone] [facility] - General 08/23/19
--- OUTSIDE RECORDS SUMMARY | 2024-05-04 19:00 | XMS_ITS | Encounter Summary ---
Author Organization [facility] Address [address] [place] [address] Care Team Providers Care Conductor/Engineer Name Role Phone Noris Tran Primary Care Provider [phone] Encounter Details Date Type Department Care Team (Late st Contact Info) Description 03/06/2013 Results Only Imaging [facility] [phone] Noris Tran RPA-C [address] [place] [address] Social History Tobacco Use Types Packs/Day Years Used Date Smoking Tobacco: Never Assessed Sex and Gender Information Value Date Recorded Sex Assigned at Not on file Gender Identity Not on file Sexual Orientation Not on file documented as of this encounter Plan of Treatment Not on file documented as of this encounter Visit Diagnoses Not on filedocumented in this encounter Care Teams Conductor/Engineer Relationship Specialty Start Date End Date Noris Tran RPA-C [address] [place] [address] PCP - General 03/06/13 08/22/19 documented as of this encounter
--- OUTSIDE RECORDS SUMMARY | 2024-05-04 19:00 | XMS_ITS | Encounter Summary ---
Author Organization [facility] Address [address] [place] [address] Care Team Providers Care Poll Watcher Name Role Phone Noris Tran Primary Care Provider [phone] Encounter Details Date Type Department Care Team (Latest Contact Info) Description 05/14/2014 18:48 EDT - 05/14/2014 18:49 EDT Hospital Encounter [address] [address] Deb Pan MD [address] [address] Discharge Disposition: Home or Self Care Social History Tobacco Use Types Packs/Day Years Used Date Smoking Tobacco: Never Assessed Sex and Gender Information Value Date Recorded Sex Assigned at Not on file Gender Identity Not on file Sexual Orientation Not on file documented as of this encounter Discharge Diagnoses Diagnosis V22.1 SUPERVIS OTHER NORMAL PREG[ICD-9-CM] documented in this encounter Discharge Disposition Disposition Code Departure Means Destination Home or Self Care documented in this encounter Plan of Treatment Not on file documented as of this encounter Visit Diagnoses Not on filedocumented in this encounter Care Teams Poll Watcher Relationship Specialty Start Date End Date Noris Tran RPA-C [address] [place] [address] PCP - General 03/06/13 08/22/19 documented as of this encounter
--- OUTSIDE RECORDS SUMMARY | 2024-05-04 19:00 | XMS_ITS | Encounter Summary ---
Author Organization [facility] Address [address] [place] [address] Care Team Providers Care Tool Machine Shop Supervisor Name Role Phone Joanna Alcaraz NP Primary Care Provider [phone] Encounter Details Date Type Department Care Team (Late st Contact Info) Description 10/29/2022 Lab Requisition [facility] Pathology & Laboratory Medicine - [facility] [address] [place], [place] [address] Outr Resulting Lab, Provider Social History Tobacco [...] Procedure Name Priority Date/Time Associated Diagnosis Comments RUBELLA IGG ANTIBODY Routine 10/29/2022 10:23 EST VARICELLA IGG ANTIBODY Routine 10/29/2022 10:23 EST documented in this encounter Results * VARICELLA IGG ANTIBODY (10/29/2022 10:23 EST) Varicella IgG Ab Positive See Note 10/30/2022 10:13 EST [facility] Comment:Presence of detectab le Varicella Zoster virus IgG antibodies. Blood VENOUS BLOOD / Unknown 10/29/2022 10:23 EST 10/29/2022 17:12 EST Provider Outr Resulting Lab IMMUNOLOGY A ND SEROLOGY ORDERABLES [facility] [address] [place] [address] * RUBELLA IGG ANTIBODY (10/29/2022 10:23 EST) Rubella IgG Ab Positive See Note 10/30/2022 10:14 EST [facility] Comment:Positive for IgG ant ibodies to Rubella virus. Blood VENOUS BLOOD / Unknown 10/29/2022 10:23 EST 10/29/2022 17:12 EST Provider Outr Resulting Lab CHEMISTRY & BLOOD GAS ORDERABLES [facility] [address] [place] [address] documented in this encounter Visit Diagnoses Not on filedocumented in this encounter Care Teams Tool Machine Shop Supervisor Relationship Specialty Start Date End Date Joanna Alcaraz NP [address] [place] [phone] PCP - General 08/23/19 documented as of this encounter
--- OUTSIDE RECORDS SUMMARY | 2024-05-04 19:00 | XMS_ITS | Referral Summary ---
Author Organization [facility] Address [address] [place] [address] Care Team Providers Care Shake Cutter Name Role Phone Joanna Alcaraz NP Primary Care Provider [phone] Social History Tobacco Use Types Packs/Day Years Used Date Smoking Tobacco: Never Assessed Sex and Gender Information Value Date Recorded Sex Assigned at Not on file Gender Identity Not on file Sexual Orientation Not on file Plan of Treatment Not on file Procedures Procedure Name Priority Date/Time Associated Diagnosis Comments HEPATITIS C AB W REFLEX TO HCV RNA BY PCR Today 10/29/2022 10:23 EST from Last 3 Months or Most Recently Relevant to Health Maintenance Results * HEPATITIS C AB W REFLEX TO HCV RNA BY PCR (10/29/2022 10:23 EST) Hep C Antibody Negative Negative 10/30/2022 10:33 EST [facility] Blood VENOUS BLOOD / Unknown 10/29/2022 10:23 EST 10/29/2022 17:12 EST Provider Outr Resulting Lab CHEMISTRY & BLOOD GAS ORDERABLES [facility] [address] [place] [address] from Last 3 Months or Most Recently Relevant to Health Maintenance Care Teams Shake Cutter Relationship Specialty Start Date End Date Joanna Alcaraz NP [address] [place] [phone] PCP - General 08/23/19
--- OUTSIDE RECORDS SUMMARY | 2024-05-04 19:00 | XMS_ITS | Encounter Summary ---
Author Organization [facility] Address [address] [place] [address] Care Team Providers Care Stress Test Technician Name Role Phone Lissa Joanna Seals NP Primary Care Provider [phone] Encounter Details Date Type Department Care Team (Latest Contact Info) Description 11/15/2020 Lab Requisition [facility] Pathology & Laboratory Medicine - [facility] [address] [place] [address] Melody Koenig MD [address] [place] [phone] Encounter for general adult medical examination without abnormal findings; Encounter for screening for malignant neoplasm of cervix; Encounter for gynecological examination (general) (routine) without abnormal findings Social History Tobacco Use Types Packs/Day Years Used Date Smoking Tobacco: Never Assessed Sex and Gender Information Value Date Recorded Sex Assigned at Not on file Gender Identity Not on file Sexual Orientation Not on file documented as of this encounter Plan of Treatment Not on file documented as of this encounter Procedures Procedure Name Priority Date/Time Associated Diagnosis Comments PAP TEST Today 11/15/2020 11:10 EST Encounter for general adult medical examination without abnormal findings Encounter for screening for malignant neoplasm of cervix Encounter for gynecological examination (general) (routine) without abnormal findings CHLAMYDIA/N. GONORRHOEAE AMPLIFIED NUCLEIC ACID, THINPREP Today 11/15/2020 11:10 EST documented in this encounter Results * PAP TEST (11/15/2020 11:10 EST) Specimens A. Cervix and/or Endocervix , ThinPrep Imaging System with Manual Evaluation 11/22/2020 14:16 [facility] Specimen Adequacy Satisfactory for Evaluation - transformation zone component absent 11/22/2020 14:16 [facility] General Categorization Negative for intraepithelial lesion or malignancy 11/22/2020 14:16 [facility] Attestation . 11/22/2020 14:16 [facility] at [address] Clinical History See below 11/22/19 14:16 [facility] Performing Lab [facility] 11/22/2020 14:16 [facility] Scanned Images 11/22/2020 14:16 [facility] Papanicolaou smear specimen (specimen) CERVIX UTERI STRUCTURE / Unknown 11/15/2020 11:10 EST 11/18/2020 12:23 EST Melody Koenig MD PATHOLOGY ORDERABLES Performing Organization Address City/[facility]/ZIP Co de Phone Number [facility] [address] [place] [address] * CHLAMYDIA/N. GONORRHOEAE AMPLIFIED RNA, THINPREP (11/15/2020 11:10 EST) Neisseria gonorrhoeae Result Negative Negative 11/18/2020 15:23 EST [facility] Chlamydia trachomatis Result Negative Negative 11/18/2020 15:23 EST [facility] Papanicolaou smear specimen (specimen) CERVIX UTERI STRUCTURE / Unknown 11/15/2020 11:10 EST 11/18/2020 8:53 EST Melody Koenig MD MICROBIOLOGY - GENER AL ORDERABLES [facility] [address] [place] [address] documented in this encounter Visit Diagnoses Diagnosis Encounter for general adult medical examination without abnormal findings Unspecified general medical examination Encounter for screening for malignant neoplasm of cervix Screening for malignant neoplasm of the cervix Encounter for gynecological examination (general) (routine) without abnormal findings documented in this encounter Care Teams Stress Test Technician Relationship Specialty Start Date End Date Joanna Alcaraz NP [address] [place] [phone] PCP - General 08/23/19 documented as of this encounter
--- OUTSIDE RECORDS SUMMARY | 2024-05-04 19:00 | XMS_ITS | Encounter Summary ---
Author Organization [facility] Address [address] [place] [address] Care Team Providers Care Manager Farm Name Role Phone Joanna Alcaraz NP Primary Care Provider [phone] Encounter Details Date Type Department Care Team (Late st Contact Info) Description 10/29/2022 Lab Requisition [facility] Pathology & Laboratory Medicine - [facility] [address], [place] [id number] Outr Resulting Lab, Provider Social History Tobacco [...] Procedure Name Priority Date/Time Associated Diagnosis Comments HIV 1/2 ANTIGEN AND ANTIBODY, 4TH GENERATION Routine 10/29/2022 10:23 EST documented in this encounter Results * HIV 1/2 ANTIGEN AND ANTIBODY, 4TH GENERATION (10/29/2022 10:23 EST) HIV 1 and 2 Antibody/p24 Antigen, 4th Generation Negative Negative 10/30/2022 10:21 EST [facility] Comment:If acute HIV-1 infec tion is suspected in a high risk patient, submit plasma specimen for HIV-1 RNA quantitation test. Blood VENOUS BLOOD / Unknown 10/29/2022 10:23 EST 10/29/2022 17:13 EST Narrative [facility] - 10/30/2022 10:21 EST Fourth Generation assay performed on the Siemens Centaur XPT. Provider Outr Resulting Lab IMMUNOLOGY A ND SEROLOGY ORDERABLES [facility] [address] [place] [address] documented in this encounter Visit Diagnoses Not on filedocumented in this encounter Care Teams Manager Farm Relationship Specialty Start Date End Date Joanna Alcaarz NP [address] [place] [phone] PCP - General 08/23/19 documented as of this encounter
--- OUTSIDE RECORDS SUMMARY | 2024-05-04 19:00 | XMS_ITS | Encounter Summary ---
Author Organization [facility] Address [address] [place] [address] Care Team Providers Care Mineralogy Teacher Name Role Phone Nolberto Tranmeng Song RPA-C Primary Care Provider [phone] Encounter Details Date Type Department Care Team (Late st Contact Info) Description 05/15/2014 Results Only [facility] Services - [facility] ([facility]) [address] [place] [address] Deb Pan MD [address] [place] [address] Social History Tobacco Use Types Packs/Day Years Used Date Smoking Tobacco: Never Assessed Sex and Gender Information Value Date Recorded Sex Assigned at Not on file Gender Identity Not on file Sexual Orientation Not on file documented as of this encounter Plan of Treatment Not on file documented as of this encounter Procedures Procedure Name Priority Date/Time Associated Diagnosis Comments QUAD SCREEN (SECOND TRIMESTER) MATERNAL, S Routine 05/14/2014 12:10 EDT QUAD MARKER SCREEN Routine 05/14/2014 12 :10 EDT documented in this encounter Results * QUAD MARKER SCREEN (05/14/2014 12:10 EDT) Interpretation Negative [facility] Comment:INTERPRETATION: SCRE EN NEGATIVE AFP/QUAD Report Refer to supplemental report for complete [facility] Comment:interpretive informa tion. 05/14/2014 12:1 0 EDT 05/15/2014 13:39 EDT Deb Pan MD CHEMISTRY & BLOOD G ORDERABLES Performing Organization Address City/[facility] Co de Phone Number [facility] [address] [place] [address] * QUAD MARKERS (05/14/2014 12:10 EDT) AFP/QUAD Sample Sample received in the lab. [facility] 05/14/2014 12:1 0 EDT 05/15/2014 13:39 EDT Deb Pan MD CHEMISTRY & BLOOD G ORDERABLES Performing Organization Address [facility] Co de Phone Number [facility] [address] [place] [address] documented in this encounter Visit Diagnoses Not on filedocumented in this encounter Care Teams Mineralogy Teacher Relationship Specialty Start Date End Date Noris Tran, RPA-C [address] [place] [address] PCP - General 03/06/13 08/22/19 documented as of this encounter
== END 2024-05-04 18:49 | disposition home or self-care (01) ==
LOC: LBN 18:48
PROVIDERS: PCP Family Medicine; Visit Provider Nurse Practitioner Family
DX: G56.02 Carpal tunnel syndrome, left upper limb (principal); M65.4 Radial styloid tenosynovitis [de Quervain]
CPT/HCPCS: 80053; 80061; 82306; 82607; 84443; 85025

== ENCOUNTER 2024-07-13 16:58 | Emergency (ER) | payer OTHER, SELFPAY ==
[2024-07-13 17:14] VITALS: BP 109/73; PULSE 96; RESP 17; TEMP 36.5; O2SAT 98
--- NOTE | 2024-07-13 17:30 | DI.RAD_ITS ---
Exam(s) XR KNEE RT 3V AP,LAT,EDDIE EXAM: XR KNEE RT 3V AP,LAT,EDDIE CLINICAL HISTORY: fall, R knee pain. TECHNIQUE: 2D digital imaging was performed. COMPARISON: No exams were available for comparison FINDINGS: 3 views No evidence of fracture nor prominent joint effusion. On 1 image there is a vertical line in the lat eral aspect of the proximal metaphysis of the tibia, doubtful for fracture. There are no fractures a t the level the tibial plateau. No joint space narrowing. Bone density normal. No osseous lesions. IMPRESSION: Subtle finding as above but doubtful for acute fracture, particularly since there is no obvious joint effusion. If symptoms persist then follow-up CT or MRI can be performed for added sensitivity. DATA REPOSITORY: RADIATION DOSE DELIVERED:
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
--- OUTSIDE RECORDS SUMMARY | 2024-07-13 17:42 | XMS_ITS | Encounter Summary ---
[place] [address] Care Team Providers Care Box Office Attendant Name Role Phone Analisa Martinez Primary Care Provider [phone] Encounter Details Date Type Department Care Team (Late st Contact Info) Description 05/26/2023 Telephone Obstetrics [place] [phone] Loida Hall, RN Social History [...] place to sleep or slept in a long-term (including now)? No 05/21/2023 [facility] IPV Inpatient [...] treating nipple thrush, is considered safe by [facility] and is the recommended by [facility] for treatment of nipple thrush. Understands that cream needs to be wiped off before feeding and states that is cluster-feeding. Would like to have the pills again that she was prescribed before leaving the [facility]. States she was treated with fluconazole 200mg [...] on filedocumented in this encounter Care Teams Box Office Attendant Relationship Specialty Start Date End Date Analisa Martinez PA [address] [place] [address] PCP - General 11/30/22 documented as of this encounter
--- OUTSIDE RECORDS SUMMARY | 2024-07-13 17:42 | XMS_ITS | Encounter Summary ---
[place] [address] Care Team Providers Care Cheese Cooker Name Role Phone Analisa Martinez Primary Care Provider [phone] Encounter Details Date Type Department Care Team (Late st Contact Info) Description 05/24/2023 Telephone Obstetrics [place] [phone] Macarena Priest, RN Social History [...] 05/24/2023 4:42 PM EDT Isabel Julian [facility]wPP [facility] Reason for call: thrush Pt reports that her daughter's journeyman apprentice electricians diagnosed the baby with thrush - pt states her baby is getting treated with nystatin, she would like treatment as well. Denies pain or cracking at nipples,they are a little red and it hurts when she latches. I stated I would reach out to [facility] recreational vehicle repairer, but that clinic is closing soon and [...] on filedocumented in this encounter Care Teams Cheese Cooker Relationship Specialty Start Date End Date [place]isa [place] [address] PCP - General 11/30/22 documented as of this encounter
--- OUTSIDE RECORDS SUMMARY | 2024-07-13 17:42 | XMS_ITS | Encounter Summary ---
Author Organization [facility] Address [facility] [place] [address] Care Team Providers Care Manager Integrated Name Role Phone Analisa Martinez Primary Care Provider [phone] Encounter Details Date Type Department Care Team [...] filedocumented in this encounter Care Teams Manager Integrated Relationship Specialty Start Date End Date Analisa Martinez PA [address] [place] [address] PCP - General 11/30/22 documented as of this encounter
--- OUTSIDE RECORDS SUMMARY | 2024-07-13 17:42 | XMS_ITS | Encounter Summary ---
Author Organization [facility] Address [facility] [place] [address] Care Team Providers Care Biochemistry Professor Name Role Phone Analisa Martinez Primary Care Provider [phone] Encounter Details Date Type Department Care Team (Late st Contact Info) Description 05/24/2023 Orders Only Obstetrics [place] [address] Nitza Murguia MD [facility] OBSTETRICS [place] [address] Jenn infection Social History Tobacco Use Types [...] place to sleep or slept in a jail (including now)? No 05/21/2023 DH IPV Inpatient [...] site documented in this encounter Care Teams Biochemistry Professor Relationship Specialty Start Date End Date [place]isa [place] [address] PCP - General 11/30/22 documented as of this encounter
--- OUTSIDE RECORDS SUMMARY | 2024-07-13 17:42 | XMS_ITS | Encounter Summary ---
Author Organization [facility] Address [facility] [facility] [place] [address] Care Team Providers Care Surveyor Hydrographic Name Role Phone Analisa Martinez Primary Care Provider [phone] Encounter Details Date Type Department Care Team (Late st Contact Info) Description 05/27/2023 Orders Only Obstetrics [place] [id number] Nitza Murguia MD [facility] OBSTETRICS [place] [address] Social History Tobacco Use Types Packs/Day Years [...] place to sleep or slept in a [place] [facility] [place] (including now)? No 05/21/2023 DH IPV Inpatient [...] on filedocumented in this encounter Care Teams Surveyor Hydrographic Relationship Specialty Start Date End Date Analisa [place] [address] PCP - General 11/30/22 documented as of this encounter
--- OUTSIDE RECORDS SUMMARY | 2024-07-13 17:42 | XMS_ITS | Encounter Summary ---
Author Organization [facility] Address [facility] [place] [address] Care Team Providers Care Food Service Representative Name Role Phone Analisa Martinez Primary Care Provider [phone] Encounter Details Date Type Department Care Team (Late st Contact Info) Description 05/26/2023 Telephone Obstetrics [place] [phone] Vilma Collins MD [facility] OBSTETRICS & [place] [address] Social History Tobacco Use Types Packs/Day Years [...] place to sleep or slept in a fdc (including now)? No 05/21/2023 DH IPV Inpatient [...] request diflucan PO for nipple thrush because infant is cluster feeding and topical miconazole is less preferable. Prx diflucan sent to patient preferred pharmacy. ARCHANA Mariscal. Vilma Collins MD, PGY3 Obstetrics and Gynecology 05/26/2023 documented in this encounter Plan of Treatment Not on file documented as of this encounter Visit Diagnoses Diagnosis Thrush Candidiasis of mouth documented in this encounter Care Teams Food Service Representative Relationship Specialty Start Date End Date Analisa Martinez PA [address] [place] [address] PCP - General 11/30/22 documented as of this encounter
--- OUTSIDE RECORDS SUMMARY | 2024-07-13 17:42 | XMS_ITS | Encounter Summary ---
Author Organization [facility] Address [facility] [address] [address] Care Team Providers Care Tig Welder Name Role Phone Analisa Martinez Primary Care Provider [phone] Encounter Details Date Type Department Care Team (Latest Contact Info) Description 05/24/2023 1:45 PM EDT Visit Obstetrics [place] [id number] Nitza Murguia MD [facility] OBSTETRICS [place] [address] care and examination; Separation of wound with [...] mg by mouth daily. vitamin 27 & [id number]-MD 60 mg iron-1 mg Tablet Take 1 [...] wound, documented in this encounter Care Teams Tig Welder Relationship Specialty Start Date End Date Analisa Martinez PA [address] [place] [address] PCP - General 11/30/22 documented as of this encounter
--- OUTSIDE RECORDS SUMMARY | 2024-07-13 17:42 | XMS_ITS | Data Portability ---
Author Organization [facility], [facility] Address [address] [place] [address] Assessment Encounter Date Assessment Date Assessment LastModified by Organization Details LastModified Time 03/29/2024 03/29/2024 The total time devoted to today's encounter, including both the [id number] time with the patient and/or family/caregi hannah and mel-njhy-ev-f nory time I personally spent is 32 minutes. lbisson Not available 03/29/2024 10:39:19 Plan of Treatment Reminders Order Date Submit Date Provider Last Modified By Organization Details Last Modified Time Details Appointments None recorded. Lab vitamin D, 25-hydroxy, total, serum 2023 024 [facility] (Registration ), [address] [place] [address] [place], [address], 4 15:27:48 lipids, total, serum [address] [facility] (Registration ), [address] [place] [address] [place], [address], 4 12:42:14 CMP, serum or plasma 2023 024 [facility] (Registration ), [address] [place] [address] [place], [address], 4 15:27:41 TSH, serum, reflex free T4 - Drawn in house [address] [facility] (Registration ), [address] [place] [address] [place], [address], 4 12:42:02 CBC w/ auto diff 2023 024 [facility] (Registration ), [address] [place] [address] [place], [address], 4 14:48:34 CMP, serum or plasma - 1T 2023 024 [facility] (Registration ), [address] [place] [address] [place], [address], 4 15:48:43 vitamin D, 25-hydroxy, total, serum - T 2023 024 [facility] (Registration ), [address] [place] [address] [place], [address], 4 15:48:44 lipid panel, serum - T 2023 024 [facility] (Registration ), [address] [place] [address] [place], [address], 4 15:42:27 Referral orthopedic surgeon referral 2023 024 [email or web address] [facility], [address] [place], [place], [address], 4 13:01:10 Procedures None recorded. Surgeries None recorded. Imaging None recorded. Medication Orders ergocalcife rol (vitamin D2) 1,250 mcg (50,000 unit) capsule 2023 024 lbisson [id number], [address] [place] [address], [id number], 4 10:40:15 Patient TargetsNo targets recorded. 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 Refer ral for Hyperlipidemia Referring Physician: Melody Damon [facility], Encounter Date: 12/17/2023 Results Created Date Observation Date Name Description Value Unit Range Abnormal Flag Note LastModifiedBy Organization Detail LastModifiedTime 12/08/1912/08/2023 COMPL ETE BLOOD COUNT W/DIF F WBC 8.67 10_3/ uL 4.4-10 .8 normal Not Available [address] [place], [address] 12/08/2023 14:48:33 12/08/19 24 12/08/2023 COMPL ETE BLOOD COUNT W/DIF F RBC 5.15 10_6/ uL 3.93-5 .22 normal Not Available [address] [place], [address] 12/08/2023 14:48:33 12/08/19 24 12/08/2023 COMPL ETE BLOOD COUNT W/DIF F HGB 14.8 g/dL 11.2-1 5.7 normal Not Available [address] [place], [address] 12/08/2023 14:48:33 12/08/19 24 12/08/2023 COMPL ETE BLOOD COUNT W/DIF F HCT 44.7 % 36.0-4 6.0 normal Not Available [address] [place], [address] 12/08/2023 14:48:33 12/08/19 24 12/08/2023 COMPL ETE BLOOD COUNT W/DIF F MCV 87 fL 80-95 normal Not Available Lizbeth [address] [place], [address] 12/08/2023 14:48:33 03/13/12/08/2023 COMPL ETE BLOOD COUNT W/DIF F MCH 28.7 pg 27.0-3 3.0 normal Not Available [address] [place], [address] 12/08/2023 14:48:33 12/08/19 24 12/08/2023 COMPL ETE BLOOD COUNT W/DIF F MCHC 33.1 % 32.0-3 6.0 normal Not Available [address] [place], [address] 12/08/2023 14:48:33 12/08/19 24 12/08/2023 COMPL ETE BLOOD COUNT W/DIF F RDW 13.2 % 11.7-1 4.6 normal Not Available [address] [place], [address] 12/08/2023 14:48:33 12/08/19 24 12/08/2023 COMPL ETE BLOOD COUNT W/DIF F platelet count 171 10_3/ uL 130-40 0 normal Not Available [address] [place], [address] 12/08/2023 14:48:33 12/08/19 24 12/08/2023 COMPL ETE BLOOD COUNT W/DIF F MPV 12.7 fL 8.0-11 .0 high Not Available [address] [place], [address] 12/08/2023 14:48:33 12/08/19 24 12/08/2023 COMPL ETE BLOOD COUNT W/DIF F neutrophils % 59.1 Not Available [address] [place], [address] 12/08/2023 14:48:33 12/08/19 24 12/08/2023 COMPL ETE BLOOD COUNT W/DIF F lymphocytes % 33.3 Not Available [address] [place], [address] 12/08/2023 14:48:33 12/08/19 24 12/08/2023 COMPL ETE BLOOD COUNT W/DIF F monocytes % 6.0 Not Available [address] [place], [address] 12/08/2023 14:48:33 12/08/19 24 12/08/2023 COMPL ETE BLOOD COUNT W/DIF F eosinophils % 1.2 Not Available [address] [place], [address] 12/08/2023 14:48:33 12/08/19 24 12/08/2023 COMPL ETE BLOOD COUNT W/DIF F basophils % 0.2 Not Available [address] [place], [address] 12/08/2023 14:48:33 12/08/19 24 12/08/2023 COMPL ETE BLOOD COUNT W/DIF F immature grans % 0.2 Not Available [address] [place], [address] 12/08/2023 14:48:33 12/08/19 24 12/08/2023 COMPL ETE BLOOD COUNT W/DIF F nucleated RBC 0.0 % 0.0-0. 3 normal Not Available [address] [place], [address] 12/08/2023 14:48:33 12/08/19 24 12/08/2023 COMPL ETE BLOOD COUNT W/DIF F absolute neutrophil count 5.12 10_3/ uL 1.2-6. 7 normal Not Available [address] [place], [address] 12/08/2023 14:48:33 12/08/19 24 12/08/2023 COMPL ETE BLOOD COUNT W/DIF F absolute lymphocyte count 2.89 10_3/ uL 1.2-3. 4 normal Not Available [address] [place], [address] 12/08/2023 14:48:33 12/08/19 24 12/08/2023 COMPL ETE BLOOD COUNT W/DIF F absolute monocyte count 0.52 10_3/ uL 0.1-0. 8 normal Not Available [address] [place], [address] 12/08/2023 14:48:33 12/08/19 24 12/08/2023 COMPL ETE BLOOD COUNT W/DIF F absolute eosinophil count 0.10 10_3/ uL 0.0-0. 7 normal Not Available [address] [place], [address] 12/08/2023 14:48:33 12/08/19 24 12/08/2023 COMPL ETE BLOOD COUNT W/DIF F absolute basophil count 0.02 10_3/ uL 0.0-0. 2 normal Not Available [address] [place], [address] 12/08/2023 14:48:33 12/08/19 24 12/08/2023 COMPR EHENS POWER METAB OLIC PANEL calcium 9.6 mg/dL 8.5-10 .1 normal Not Available [address] [place], [address] 12/08/2023 15:27:41 12/08/19 24 12/08/2023 COMPR EHENS POWER METAB OLIC PANEL glucose 75 mg/dL 74-106 normal Not Available Lizbeth [address] [place], [address] 12/08/2023 15:27:41 12/08/19 24 12/08/2023 COMPR EHENS POWER METAB OLIC PANEL BUN 16 mg/dL 7-18 normal Not Available Lizbeth [address] [place], [address] 12/08/2023 15:27:41 12/08/19 24 12/08/2023 COMPR EHENS POWER METAB OLIC PANEL creatinine 0.8 mg/dL 0.55-1 .02 normal Not Available [address] [place], [address] 12/08/2023 15:27:41 12/08/19 24 12/08/2023 COMPR EHENS POWER METAB OLIC PANEL estimated GFR 102.22 mL/min /1.73m 2 The eGFR is calcu lated from a serum creat inine using the CKD-E PI 2020 equat ion. Other varia bles requi red for the equat ion are gende r and age; this equat ion does not inclu de a race coeff icien t. This equat ion has simil ar overa ll perfo rmanc e to previ ous equat ions excep t value s may diffe r, in parti cular , in patie nts with highe r value s of eGFR and young er-ag ed adult s. Not Available [address] [place], [address] 12/08/2023 15:27:41 12/08/19 24 12/08/2023 COMPR EHENS POWER METAB OLIC PANEL total protein 7.7 g/dL 6.4-8. 2 normal Not Available [address] [place], [address] 12/08/2023 15:27:41 12/08/19 24 12/08/2023 COMPR EHENS POWER METAB OLIC PANEL albumin 4.2 g/dL 3.4-5. 0 normal Not Available [address] [place], [address] 12/08/2023 15:27:41 12/08/19 24 12/08/2023 COMPR EHENS POWER METAB OLIC PANEL bilirubin, total 0.3 mg/dL 0.2-1. 0 normal Not Available [address] [place], [address] 12/08/2023 15:27:41 12/08/19 24 12/08/2023 COMPR EHENS POWER METAB OLIC PANEL alk phos 83 U/L 46-116 normal Not Available [address] [place], [address] 12/08/2023 15:27:41 12/08/19 24 12/08/2023 COMPR EHENS POWER METAB OLIC PANEL sodium 142 mmol/ L 136-14 5 normal Not Available [address] [place], [address] 12/08/2023 15:27:41 12/08/19 24 12/08/2023 COMPR EHENS POWER METAB OLIC PANEL potassium 4.4 mmol/ L 3.5-5. 1 normal Not Available [address] [place], [address] 12/08/2023 15:27:41 12/08/19 24 12/08/2023 COMPR EHENS POWER METAB OLIC PANEL chloride 105 mmol/ L 98-107 normal Not Available [address] [place], [address] 12/08/2023 15:27:41 12/08/19 24 12/08/2023 COMPR EHENS POWER METAB OLIC PANEL CO2 26.4 mmol/ L 21.0-3 2.0 normal Not Available [address] [place], [address] 12/08/2023 15:27:41 12/08/19 24 12/08/2023 COMPR EHENS POWER METAB OLIC PANEL anion gap 10.6 mmol/ L 3-11 normal Not Available [address] [place], [address] 12/08/2023 15:27:41 12/08/19 24 12/08/2023 COMPR EHENS POWER METAB OLIC PANEL AST 15 U/L 15-37 normal Not Available Lizbeth [address] [place], [address] 12/08/2023 15:27:41 12/08/19 24 12/08/2023 COMPR EHENS POWER METAB OLIC PANEL ALT 31 U/L 14-59 normal Not Available Lizbeth [address] [place], [address] 12/08/2023 15:27:41 12/08/19 24 12/08/2023 LIPID 2 cholesterol 247 mg/dL <200 high Not Available [address] [place], [address] 12/08/2023 15:27:42 12/08/19 24 12/08/2023 LIPID 2 triglyceride 101 mg/dL <150 Not Available [address] [place], [address] 12/08/2023 15:27:42 12/08/19 24 12/08/2023 LIPID 2 HDL cholesterol 51 mg/dL 40-60 Not Available [facility] [address] [place], [address] 12/08/2023 15:27:42 12/08/19 24 12/08/2023 LIPID 2 calculated LDL 176 mg/dL <100 high Natio nal Marielle stero l Educa tion Progr am (NCEP -ATPI II) class ifica tions : Marielle stero l <200 mg/dL Chas able Marielle stero l 200-2 39 mg/dL Borde rline High Marielle stero l >or=2 40 mg/dL High HDL <40 mg/dL Low HDL >or=6 0 mg/dL High LDL <100 mg/dL Optim al LDL 100-1 29 mg/dL Near Optim al/Ab ove Optim al LDL 130-1 59 mg/dL Borde rline High LDL 160-1 89 mg/dL High LDL >or=1 90 mg/dL Very High *The above refer ence range is for adult s 18 years or older . Not Available [address] [place], [address] 12/08/2023 15:27:42 12/08/19 24 12/08/2023 TSH (W/RE F FT4) TSH (w/ref FT4) 1.10 uIU/m L 0.36-3 .74 normal Not Available [address] [place], [address] 12/08/2023 15:27:43 12/08/19 24 12/08/2023 VITAM IN D 25 TOTAL vitamin D 25 total 22.9 NG/mL 30-100 low Refer ence Guide lines : Defic ient: <10 ng/ml Insuf ficie nt: 10-30 ng/ml Suffi cient : 30-10 0 ng/ml Toxic : >100 ng/ml Not Available [address] [place], [address] 12/08/2023 15:27:48 01/04/20 24 01/06/2024 STREP A CULTU RE strep A culture Strep A Cultu re GROUP A SCREE N RESUL T Beta- Hemol ytic Strep Group A, C or G NOT isola adelfo Not Available [address] [place], [address] 01/06/2024 12:17:56 03/29/20 24 03/29/2024 COMPR EHENS POWER METAB OLIC PANEL calcium 9.7 mg/dL 8.5-10 .1 normal Not Available [address] [place], [address] 03/29/2024 15:48:43 03/29/20 24 03/29/2024 COMPR EHENS POWER METAB OLIC PANEL glucose 87 mg/dL 74-106 normal Not Available Lizbeth choi [address] [place], [address] 03/29/2024 15:48:43 03/29/20 24 03/29/2024 COMPR EHENS POWER METAB OLIC PANEL BUN 10 mg/dL 7-18 normal Not Available Lizbeth choi [address] [place], [address] 03/29/2024 15:48:43 03/29/20 24 03/29/2024 COMPR EHENS POWER METAB OLIC PANEL creatinine 0.7 mg/dL 0.55-1 .02 normal Not Available [address] [place], [address] 03/29/2024 15:48:43 03/29/20 24 03/29/2024 COMPR EHENS POWER METAB OLIC PANEL estimated GFR 119.99 mL/min /1.73m 2 The eGFR is calcu lated from a serum creat inine using the CKD-E PI 2020 equat ion. Other varia bles requi red for the equat ion are gende r and age; this equat ion does not inclu de a race coeff icien t. This equat ion has simil ar overa ll perfo rmanc e to previ ous equat ions excep t value s may diffe r, in parti cular , in patie nts with highe r value s of eGFR and young er-ag ed adult s. Not Available [address] [place], [address] 03/29/2024 15:48:43 03/29/20 24 03/29/2024 COMPR EHENS POWER METAB OLIC PANEL total protein 7.3 g/dL 6.4-8. 2 normal Not Available [address] [place], [address] 03/29/2024 15:48:43 03/29/20 24 03/29/2024 COMPR EHENS POWER METAB OLIC PANEL albumin 4.0 g/dL 3.4-5. 0 normal Not Available [address] [place], [address] 03/29/2024 15:48:43 03/29/20 24 03/29/2024 COMPR EHENS POWER METAB OLIC PANEL bilirubin, total 0.24 mg/dL 0.2-1. 0 normal Not Available [address] [place], [address] 03/29/2024 15:48:43 03/29/20 24 03/29/2024 COMPR EHENS POWER METAB OLIC PANEL alk phos 67 U/L 46-116 normal Not Available [address] [place], [address] 03/29/2024 15:48:43 03/29/20 24 03/29/2024 COMPR EHENS POWER METAB OLIC PANEL sodium 143 mmol/ L 136-14 5 normal Not Available [address] [place], [address] 03/29/2024 15:48:43 03/29/20 24 03/29/2024 COMPR EHENS POWER METAB OLIC PANEL potassium 4.2 mmol/ L 3.5-5. 1 normal Not Available [address] [place], [address] 03/29/2024 15:48:43 03/29/20 24 03/29/2024 COMPR EHENS POWER METAB OLIC PANEL chloride 105 mmol/ L 98-107 normal Not Available [address] [place], [address] 03/29/2024 15:48:43 03/29/20 24 03/29/2024 COMPR EHENS POWER METAB OLIC PANEL CO2 27.9 mmol/ L 21.0-3 2.0 normal Not Available [address] [place], [address] 03/29/2024 15:48:43 03/29/20 24 03/29/2024 COMPR EHENS POWER METAB OLIC PANEL anion gap 10.1 mmol/ L 3-11 normal Not Available [address] [place], [address] 03/29/2024 15:48:43 03/29/20 24 03/29/2024 COMPR EHENS POWER METAB OLIC PANEL AST 15 U/L 15-37 normal Not Available Lizbeth choi [address] [place], [address] 03/29/2024 15:48:43 03/29/20 24 03/29/2024 COMPR EHENS POWER METAB OLIC PANEL ALT 27 U/L 14-59 normal Not Available Lizbeth choi [address] [place], [address] 03/29/2024 15:48:43 03/29/20 24 03/29/2024 LIPID 2 cholesterol 202 mg/dL <200 high Not Available [facility] (Registration ) [address] [place] [address] [place], [address], 03/29/2024 15:48:44 03/29/20 24 03/29/2024 LIPID 2 triglyceride 92 mg/dL <150 Not Available [facility] (Registration ) [address] [place] [address] [place], [address], 03/29/2024 15:48:44 03/29/20 24 03/29/2024 LIPID 2 HDL cholesterol 47 mg/dL 40-60 Not Available [facility] (Registration ) [address] [place] [address] [place], [address], 03/29/2024 15:48:44 03/29/20 24 03/29/2024 LIPID 2 calculated LDL 137 mg/dL <100 high Natio nal Marielle stero l Educa tion Progr am (NCEP -ATPI II) class ifica tions : Marielle stero l <200 mg/dL Chas able Marielle stero l 200-2 39 mg/dL Borde rline High Marielle stero l >or=2 40 mg/dL High HDL <40 mg/dL Low HDL >or=6 0 mg/dL High LDL <100 mg/dL Optim al LDL 100-1 29 mg/dL Near Optim al/Ab ove Optim al LDL 130-1 59 mg/dL Borde rline High LDL 160-1 89 mg/dL High LDL >or=1 90 mg/dL Very High *The above refer ence range is for adult s 18 years or older . Not Available [facility] (Registration ) [address] [place] [address] [place], [address], 03/29/2024 15:48:44 03/29/20 24 03/29/2024 VITAM IN D 25 TOTAL vitamin D 25 total 28.3 NG/mL 30-100 low Refer ence Guide lines : Defic ient: <10 ng/ml Insuf ficie nt: 10-30 ng/ml Suffi cient : 30-10 0 ng/ml Toxic : >100 ng/ml Not Available [address] [place], [address] 03/29/2024 15:48:44 05/04/20 24 05/04/2024 COMPL ETE BLOOD COUNT W/DIF F WBC 8.49 10_3/ uL 4.4-10 .8 normal Not Available [address] [place], [address] 05/04/2024 16:43:33 05/04/20 24 05/04/2024 COMPL ETE BLOOD COUNT W/DIF F RBC 4.96 10_6/ uL 3.93-5 .22 normal Not Available [address] [place], [address] 05/04/2024 16:43:33 05/04/20 24 05/04/2024 COMPL ETE BLOOD COUNT W/DIF F HGB 14.3 g/dL 11.2-1 5.7 normal Not Available [address] [place], [address] 05/04/2024 16:43:33 05/04/20 24 05/04/2024 COMPL ETE BLOOD COUNT W/DIF F HCT 43.0 % 36.0-4 6.0 normal Not Available [address] [place], [address] 05/04/2024 16:43:33 05/04/20 24 05/04/2024 COMPL ETE BLOOD COUNT W/DIF F MCV 87 fL 80-95 normal Not Available Lizbeth choi [address] [place], [address] 05/04/2024 16:43:33 05/04/20 24 05/04/2024 COMPL ETE BLOOD COUNT W/DIF F MCH 28.8 pg 27.0-3 3.0 normal Not Available [address] [place], [address] 05/04/2024 16:43:33 05/04/20 24 05/04/2024 COMPL ETE BLOOD COUNT W/DIF F MCHC 33.3 % 32.0-3 6.0 normal Not Available [address] [place], [address] 05/04/2024 16:43:33 05/04/20 24 05/04/2024 COMPL ETE BLOOD COUNT W/DIF F RDW 13.2 % 11.7-1 4.6 normal Not Available [address] [place], [address] 05/04/2024 16:43:33 05/04/20 24 05/04/2024 COMPL ETE BLOOD COUNT W/DIF F platelet count 164 10_3/ uL 130-40 0 normal Not Available [address] [place], [address] 05/04/2024 16:43:33 05/04/20 24 05/04/2024 COMPL ETE BLOOD COUNT W/DIF F MPV fL 8.0-11 .0 Unabl e to resul t MPV Not Available [address] [place], [address] 05/04/2024 16:43:33 05/04/20 24 05/04/2024 COMPL ETE BLOOD COUNT W/DIF F neutrophils % 62.5 % Not Available [address] [place], [address] 05/04/2024 16:43:33 05/04/20 24 05/04/2024 COMPL ETE BLOOD COUNT W/DIF F lymphocytes % 28.7 % Not Available [address] [place], [address] 05/04/2024 16:43:33 05/04/20 24 05/04/2024 COMPL ETE BLOOD COUNT W/DIF F monocytes % 7.2 % Not Available [address] [place], [address] 05/04/2024 16:43:33 05/04/20 24 05/04/2024 COMPL ETE BLOOD COUNT W/DIF F eosinophils % 0.8 % Not Available [address] [place], [address] 05/04/2024 16:43:33 05/04/20 24 05/04/2024 COMPL ETE BLOOD COUNT W/DIF F basophils % 0.4 % Not Available [address] [place], [address] 05/04/2024 16:43:33 05/04/20 24 05/04/2024 COMPL ETE BLOOD COUNT W/DIF F immature grans % 0.4 % Not Available [address] [place], [address] 05/04/2024 16:43:33 05/04/20 24 05/04/2024 COMPL ETE BLOOD COUNT W/DIF F nucleated RBC 0.0 % 0.0-0. 3 normal Not Available [address] [place], [address] 05/04/2024 16:43:33 05/04/20 24 05/04/2024 COMPL ETE BLOOD COUNT W/DIF F absolute neutrophil count 5.31 10_3/ uL 1.2-6. 7 normal Not Available [address] [place], [address] 05/04/2024 16:43:33 05/04/20 24 05/04/2024 COMPL ETE BLOOD COUNT W/DIF F absolute lymphocyte count 2.44 10_3/ uL 1.2-3. 4 normal Not Available [address] [place], [address] 05/04/2024 16:43:33 05/04/20 24 05/04/2024 COMPL ETE BLOOD COUNT W/DIF F absolute monocyte count 0.61 10_3/ uL 0.1-0. 8 normal Not Available [address] [place], [address] 05/04/2024 16:43:33 05/04/20 24 05/04/2024 COMPL ETE BLOOD COUNT W/DIF F absolute eosinophil count 0.07 10_3/ uL 0.0-0. 7 normal Not Available [address] [place], [address] 05/04/2024 16:43:33 05/04/20 24 05/04/2024 COMPL ETE BLOOD COUNT W/DIF F absolute basophil count 0.03 10_3/ uL 0.0-0. 2 normal Not Available [address] [place], [address] 05/04/2024 16:43:33 05/04/20 24 05/04/2024 COMPR EHENS POWER METAB OLIC PANEL calcium 8.9 mg/dL 8.5-10 .1 normal Not Available [address] [place], [address] 05/04/2024 17:32:34 05/04/20 24 05/04/2024 COMPR EHENS POWER METAB OLIC PANEL glucose 91 mg/dL 74-106 normal Not Available Lizbeth choi [address] [place], [address] 05/04/2024 17:32:34 05/04/20 24 05/04/2024 COMPR EHENS POWER METAB OLIC PANEL BUN 13 mg/dL 7-18 normal Not Available Lizbeth [address] [place], [address] 05/04/2024 17:32:34 05/04/20 24 05/04/2024 COMPR EHENS POWER METAB OLIC PANEL creatinine 0.8 mg/dL 0.55-1 .02 normal Not Available [address] [place], [address] 05/04/2024 17:32:34 05/04/20 24 05/04/2024 COMPR EHENS POWER METAB OLIC PANEL estimated GFR 102.22 mL/min /1.73m 2 The eGFR is calcu lated from a serum creat inine using the CKD-E PI 2020 equat ion. Other varia bles requi red for the equat ion are gende r and age; this equat ion does not inclu de a race coeff icien t. This equat ion has simil ar overa ll perfo rmanc e to previ ous equat ions excep t value s may diffe r, in parti cular , in patie nts with highe r value s of eGFR and young er-ag ed adult s. Not Available [address] [place], [address] 05/04/2024 17:32:34 05/04/20 24 05/04/2024 COMPR EHENS POWER METAB OLIC PANEL total protein 7.5 g/dL 6.4-8. 2 normal Not Available [address] [place], [address] 05/04/2024 17:32:34 05/04/20 24 05/04/2024 COMPR EHENS POWER METAB OLIC PANEL albumin 4.1 g/dL 3.4-5. 0 normal Not Available [address] [place], [address] 05/04/2024 17:32:34 05/04/20 24 05/04/2024 COMPR EHENS POWER METAB OLIC PANEL bilirubin, total 0.42 mg/dL 0.2-1. 0 normal Not Available [address] [place], [address] 05/04/2024 17:32:34 05/04/20 24 05/04/2024 COMPR EHENS POWER METAB OLIC PANEL alk phos 65 U/L 46-116 normal Not Available [address] [place], [address] 05/04/2024 17:32:34 05/04/20 24 05/04/2024 COMPR EHENS POWER METAB OLIC PANEL sodium 140 mmol/ L 136-14 5 normal Not Available [address] [place], [address] 05/04/2024 17:32:34 05/04/20 24 05/04/2024 COMPR EHENS POWER METAB OLIC PANEL potassium 4.0 mmol/ L 3.5-5. 1 normal Not Available [address] [place], [address] 05/04/2024 17:32:34 05/04/20 24 05/04/2024 COMPR EHENS POWER METAB OLIC PANEL chloride 103 mmol/ L 98-107 normal Not Available [address] [place], [address] 05/04/2024 17:32:34 05/04/20 24 05/04/2024 COMPR EHENS POWER METAB OLIC PANEL CO2 25.2 mmol/ L 21.0-3 2.0 normal Not Available [address] [place], [address] 05/04/2024 17:32:34 05/04/20 24 05/04/2024 COMPR EHENS POWER METAB OLIC PANEL anion gap 11.8 mmol/ L 3-11 high Not Available [address] [place], [address] 05/04/2024 17:32:34 05/04/20 24 05/04/2024 COMPR EHENS POWER METAB OLIC PANEL AST 15 U/L 15-37 normal Not Available Lizbeth [address] [place], [address] 05/04/2024 17:32:34 05/04/20 24 05/04/2024 COMPR EHENS POWER METAB OLIC PANEL ALT 27 U/L 14-59 normal Not Available [address] [place], [address] 05/04/2024 17:32:34 05/04/20 24 05/04/2024 LIPID 2 cholesterol 202 mg/dL <200 high Not Available [address] [place], [address] 05/04/2024 17:32:34 05/04/20 24 05/04/2024 LIPID 2 triglyceride 92 mg/dL <150 Not Available [address] [place], [address] 05/04/2024 17:32:34 05/04/20 24 05/04/2024 LIPID 2 HDL cholesterol 41 mg/dL 40-60 Not Available [address] [place], [address] 05/04/2024 17:32:34 05/04/20 24 05/04/2024 LIPID 2 calculated LDL 143 mg/dL <100 high Natio nal Marielle stero l Educa tion Progr am (NCEP -ATPI II) class ifica tions : Marielle stero l <200 mg/dL Chas able Marielle stero l 200-2 39 mg/dL Borde rline High Marielle stero l >or=2 40 mg/dL High HDL <40 mg/dL Low HDL >or=6 0 mg/dL High LDL <100 mg/dL Optim al LDL 100-1 29 mg/dL Near Optim al/Ab ove Optim al LDL 130-1 59 mg/dL Borde rline High LDL 160-1 89 mg/dL High LDL >or=1 90 mg/dL Very High *The above refer ence range is for adult s 18 years or older . Not Available [address] [place], [address] 05/04/2024 17:32:34 05/04/20 24 05/04/2024 TSH (W/RE F FT4) TSH (w/ref FT4) 1.35 uIU/m L 0.36-3 .74 normal Not Available [address] [place], [address] 05/04/2024 17:32:35 05/04/20 24 05/04/2024 VITAM IN B12 vitamin B12 728 pg/mL 193-98 6 normal Not Available [address] [place], [address] 05/04/2024 17:32:35 05/04/20 24 05/04/2024 VITAM IN D 25 TOTAL vitamin D 25 total 28.4 NG/mL 30-100 low Refer ence Guide lines : Defic ient: <10 ng/ml Insuf ficie nt: 10-30 ng/ml Suffi cient : 30-10 0 ng/ml Toxic : >100 ng/ml Not Available [address] [place], [address] 05/04/2024 17:32:36 10/20/19 24 10/20/2023 x-ray imagi ng repor t Patien t Name: Isabel PRAKASH Unit #: [id number] Loc: DONY Sy syed Provid er: Evert Bryant M.D. Accoun t #: [id number] Status : PRE CLI Primar y Care [...] The carpal bones are normal ly giacomo flores. SOFT TISSUE : Normal . IMPRES BRODIE: Unrema rkable radiog raphs of the left wrist. DATA REPOSI TORY: RADIAT ION DOSE DELIVE RED: Ordere d By: Evert Bryant M.D. CC: ------ ------ ------ ------ ------ ------ ------ ------ ------ ------ ------ ------ - Dictat ed By: Juliane Negro 1005 1005 Transc ribed By: [place] No 1005 This is privil eged, confid ential inform ation intend ed only for the provid er named. Any use or distri bution by any person other than this provid er is strict ly prohib ited. If you receiv e this report in error, please notify us immedi ately at [phone] and return the origin al report to us at the addres s above. Thank- you. [email or web address] [address] [place], [address] 10/25/2023 08:19:46 06/12/20 24 05/31/2023 imagi ng/di agnos tic resul t No observ ation record ed. Not Available 06/12 20:18:04 06/12/20 24 05/30/2023 imagi ng/di agnos tic resul t No observ ation record ed. Not Available 06/12 20:20:24 06/12/20 24 05/17/2022 imagi ng/di agnos tic resul t No observ ation record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
--- OUTSIDE RECORDS SUMMARY | 2024-07-13 17:42 | XMS_ITS | Clinical Summary ---
Author Organization [facility] Address [facility] [place] [address] Care Team Providers Care Deli Cook Name Role Phone Analisa Martinez Primary Care Provider Allergies Active Allergy Reactions Criticality Noted Date Comments Latex, Natural Rubber Rash 11/06/2022 Penicillins 11/06/2022 Varicella Vaccines Hives 11/26/2022 Medications Medication Sig Dispensed Refills Start Date End Date Status miconazole (Micotin) 2 % CreamIndications:Cand junie infection Apply topically 2 times daily. 14 g 05/24/2023 Active Active Problems Problem Noted Date Diagnosed Date Pulmonary embolus 05/31/2023 Overview (05/31/2023): Please see 05/31/2023 Sales Coordinator Telephone Note: Pt states she was told by [facility] to call and notify [facility] that she had some back pain and that she went to [facility] and is now being treated for a PE following CT. Said she was told she has clots in the bottom of her left lung. She is on Lovenox 130 mg daily x 3 mo. She weights 190lbs. She has a PCP and Inventory Technician whom she will see tomorrow. Resolved Problems [...] place to sleep or slept in a usp (including now)? No 05/21/2023 DH IPV Inpatient [...] Hepatitis B vaccine (0-59 yrs) (1) 2013 Tetanus/Diphtheria/Pertussis Vaccines (1 - Tdap) 08/22 PAP Smear 2015 Covid-19 Vaccine (1 - season) 2024 Influenza (Flu) vaccine (1 o f 1 [...] Status decision made by: Patient Care Teams Deli Cook Relationship Specialty Start Date End Date Analisa Martinez PA [address] [place] [address] PCP - General 11/30/22
--- OUTSIDE RECORDS SUMMARY | 2024-07-13 17:42 | XMS_ITS | Encounter Summary ---
[place] [address] Care Team Providers Care Securities Compliance Examiner Name Role Phone Analisa Martinez Primary Care Provider [phone] Encounter Details Date Type Department Care Team (Late st Contact Info) Description 05/31/2023 Telephone Obstetrics [place] [address] Sharla Garvey MD [address] [place] [address] [address] [place] [address] Social History Tobacco Use Types Packs/Day Years [...] a nursing home (including now)? No 05/21/2023 IPV Inpatient Questions [...] Garvey MD - 05/31/2023 1:43 PM EDT Underground Heavy Equipment Operator Telephone Note Patient ID: Isabel Julian is a 27 y.o. . Pt is s/p RCS and BS 04/12/2023. Pt confirmed by full name and . Pt states she was told by [facility] to call and notify [facility] that she had some back pain and that she went to [facility] and is now being treated for a PE following CT. Said she was told she has clots in the bottom of her left lung. She is on Lovenox 130 mg daily x 3 mo. She weights 190lbs. She has a PCP and Early Childhood Teacher Assistant whom she will see tomorrow. Diagnosis added to pt chart. As pt is establishing care w/ PCP and Early Childhood Teacher Assistant, discussed that these are appropriate for management. Reviewed warning signs to present to closest ED (SOB, chest pain, concerns). Sharla Garvey MDY PGY4 documented in this encounter Plan of Treatment Not on file documented as of this encounter Visit Diagnoses Diagnosis Other acute pulmonary embolism with acute cor pulmonale documented in this encounter Care Teams Securities Compliance Examiner Relationship Specialty Start Date End Date Analisa Martinez PA [address] [place] [address] PCP - General 11/30/22 documented as of this encounter
--- OUTSIDE RECORDS SUMMARY | 2024-07-13 17:43 | XMS_ITS | Encounter Summary ---
Author Organization [facility] Address [facility] [place] [address] Care Team Providers Care Corridor Redevelopment Manager Name Role Phone Analisa Martinez Primary Care Provider [phone] Encounter Details Date Type Department Care Team [...] room. She met with a counselor at [employer] [employer] who encouraged her to pump every hour [...] plans cristinaee MD Analisa Robertson RN, IBCLC [facility] documented in this encounter Plan of Treatment Not on file documented as of this encounter Visit Diagnoses Not on filedocumented in this encounter Care Teams Corridor Redevelopment Manager Relationship Specialty Start Date End Date Analisa [place] [address] PCP - General 11/30/22 documented as of this encounter
--- OUTSIDE RECORDS SUMMARY | 2024-07-13 17:43 | XMS_ITS | Encounter Summary ---
Author Organization [facility] Address [facility] [place] [address] Care Team Providers Care Rn Corrections Name Role Phone Analisa Martinez Primary Care Provider [phone] Reason for Visit * Reason Comments Routine Visit Encounter Details Date Type Department Care Team (Late st Contact Info) Description 03/22/2023 4:00 PM EDT Routine Obstetrics [place] [address] Nitza Murguia MD [facility] [address] [place] [address] GA: [id number] Social History Tobacco Use Types [...] disorders documented in this encounter Care Teams Rn Corrections Relationship Specialty Start Date End Date Analisa [place] [address] PCP - General 11/30/22 documented as of this encounter
--- OUTSIDE RECORDS SUMMARY | 2024-07-13 17:43 | XMS_ITS | Encounter Summary ---
Author Organization [facility] Address [facility] [place] [address] Care Team Providers Care Canine Enforcement Officer Name Role Phone Analisa Martinez Primary Care Provider [phone] Encounter Details Date Type Department Care Team [...] on filedocumented in this encounter Care Teams Canine Enforcement Officer Relationship Specialty Start Date End Date Analisa [place] [address] PCP - General 11/30/22 documented as of this encounter
--- OUTSIDE RECORDS SUMMARY | 2024-07-13 17:43 | XMS_ITS | Encounter Summary ---
Author Organization [facility] Address [facility] [place] [address] Care Team Providers Care Ash Handler Name Role Phone Analisa Martinez Primary Care [...] on filedocumented in this encounter Care Teams Ash Handler Relationship Specialty Start Date End Date Analisa Martinez PA [address] [place] [address] PCP - General 11/30/22 documented as of this encounter
--- OUTSIDE RECORDS SUMMARY | 2024-07-13 17:43 | XMS_ITS | Encounter Summary ---
Author Organization [facility] Address [facility] [place] [address] Care Team Providers Care Barrel Inspector Name Role Phone Analisa Martinez Primary Care Provider [phone] Encounter Details Date Type Department Care Team [...] on filedocumented in this encounter Care Teams Barrel Inspector Relationship Specialty Start Date End Date Analisa Martinez PA [address] [place] [address] PCP - General 11/30/22 documented as of this encounter
--- OUTSIDE RECORDS SUMMARY | 2024-07-13 17:43 | XMS_ITS | Encounter Summary ---
Author Organization [facility] [place] [address] Care Team Providers Care Community Arts Officer Name Role Phone Analisa Martinez Primary Care Provider [phone] Encounter Details Date Type Department Care Team (Late st Contact Info) Description 04/26/2023 Telephone Obstetrics [place] [phone] Helene Omer MD [facility] DR OBSTETRICS & [place] [address] Social History Tobacco Use Types Packs/Day Years [...] on filedocumented in this encounter Care Teams Community Arts Officer Relationship Specialty Start Date End Date Analisa Martinez PA [address] [place] [address] PCP - General 11/30/22 documented as of this encounter
--- OUTSIDE RECORDS SUMMARY | 2024-07-13 17:43 | XMS_ITS | Encounter Summary ---
Author Organization [facility] Address [facility] [place] [address] Care Team Providers Care Counterperson Name Role Phone Analisa Martinez Primary Care Provider [phone] Encounter Details Date Type Department Care Team (Late st Contact Info) Description 04/05/2023 Telephone Obstetrics [place] [phone] Ewa Kwon MD [facility] DR OBSTETRICS & [place] [address] Social History Tobacco Use Types Packs/Day Years [...] on filedocumented in this encounter Care Teams Counterperson Relationship Specialty Start Date End Date Analisa Martinez PA [address] [place] [address] PCP - General 11/30/22 documented as of this encounter
--- OUTSIDE RECORDS SUMMARY | 2024-07-13 17:43 | XMS_ITS | Encounter Summary ---
[place] [address] Care Team Providers Care Gre Tutor Name Role Phone Analisa Martinez Primary Care Provider [phone] Encounter Details Date Type Department Care Team (Late st Contact Info) Description 04/20/2023 Telephone Obstetrics [place] [address] Maribell Torres RN Social History [...] on filedocumented in this encounter Care Teams Gre Tutor Relationship Specialty Start Date End Date Analisa Martinez PA [address] [place] [address] PCP - General 11/30/22 documented as of this encounter
--- OUTSIDE RECORDS SUMMARY | 2024-07-13 17:43 | XMS_ITS | Encounter Summary ---
[facility] [place] [address] Care Team Providers Care Tumbler Dyeing Machine Operator Name Role Phone Analisa Martinez Primary Care Provider [phone] Reason for Visit * Auth/Cert (Routine) Specialty Diagnoses / Procedures Referred By Contac t Referred To Contact Diagnoses Wound infection after surgery Procedures EMERGENCY IPI Casey Armendariz MD [facility] [address] [facility] Referral ID Status Reason Start Date Expiration Date Visits Re quested Visits Authorized [id number] 1 1 Encounter Details Date Type Department Care Team (Latest Contact Info) Description 04/24/2023 1:36 PM EDT - 04/24/2023 11:01 PM [place]T [place] [address] Casey Armendariz MD [facility] [address] Discharge Disposition: Home Social History Tobacco Use [...] Isabel Julian Patient Age: 27 y.o. Language: Samoan Race: White Ethnicity: Not nor Admit date: 04/24/2023 Discharge date and time: 05/04/2023 Attending Physician: No att. providers found Discharge Physician: Dr. Fide Haas Care Provider: [facility] Referring Hospital: N/A Follow-up Recommendations for Providers: - 2 week mood check - 6 week visit Inpatient Provider Contact Information: [facility] [employer] Department, Discharge Diagnoses (Hospital Problems) and Secondary [...] Information for the patient's : Annia Prakash [[id number]] INFORMATION Annia Prakash 04/12/2023 4:21 PM by Lower Segment Transverse Sex: female Gestational Age: 36w2d [place] Measurements: Weight: 6 lb 5.9 oz (2890 [...] 60 tablet Refills: 0 vitamin 27 & [id number]-[id number] 60 mg iron-1 mg Tablet Take 1 [...] Sophie Scanlon MD Obstetrics and Gynecology at [facility] Arrive at: [employer] [facility] [phone] 05/24/2023 1:45 PM Nitza Murguia MD Obstetrics and Gynecology at [facility] Arrive at: [employer] [facility] [phone] Discharge References/Attachments None Hypotension due to anesthesia [...] by mouth daily. 05/24/2023 vitamin 27 & kybjqoy-eumd-JV 60 mg iron-1 mg Tablet Take 1 [...] she was visiting her baby in the [facility] and wanted to get checked out. No redness or pain around the incision. No fevers or chills. Otherwise feeling well and plan was for d/c home from [facility] today for baby. On she was examined [...] stay overnight andbaby can't go home from [facility]. Does not want surgery. We reviewed her [...] (one dose one before she goes, will leaf size picker rest @ pharmacy in AM) and [...] for Visit: 27 y.o. Female presents to [facility] with concern for wound infection. History of Present Illness: Isabel is a 27 year old G4 now P2113, now POD#12 s/p scheduled repeat and bilateral salpingectomy who presents for concern for wound infection. She presents with her partner, who assists inrelaying the history. Notes that in the last 24 hours, has had significant drainage from Pfannenstiel incision. Drainage clear to gsnfkf-imz-hypuc. Patient provides pictures and notes that she [...] 16.13) performed by Mary Headley MD at [facility] PRO LIGATE FALLOPIAN TUBE, N/A 04/12/2023 @FALLOPIAN TUBE(S), TRANSECTION OR LIGATION, ABD APPROACH, POST- (WRVU 5.28) performed by Mary Headley MD at [facility] Past Obstetric History: OB History Para Term [...] mg by mouth daily. vitamin 27 & [id number]-xbfr-HW 60 mg iron-1 mg Tablet Take 1 [...] of 04/24/23 CT Pelvis Soft Tissue (GI BURR FILER) w Contrast (Exam End: 04/24/2023 4:06 PM) [...] have questions please contact the health care technician that requested your imaging first. Electronically signed by: Lisha Bolton MD, [facility] ([phone]), at 04/24/2023 6:01 PM Assessment/Plan: Isabel is a 27 year old [...] Anne MD Obstetrics Resident Birthing [place] Phone: [phone] Pager: [phone] Associated attestation - Casey Armendariz MD - [...] PM EDT CT PELVIS SOFT TISSUE (GI BURR FILER)W CONTRAST Routine 04/24/2023 4:06 PM EDT ANAEROBIC CULTURE Routine 04/24/2023 2:3 1 PM EDT HC BODY FLUID CULTURE Routine 04/24/2023 2:31 PM EDT BODY FLUID CULTURE, AEROBIC Routine 04/24/2023 2:31 PM EDT documented in this encounter Results * (ABNORMAL) Differential, Automated (04/24/2023 8:26 PM EDT) Neutrophil % 73.3 % [facility] Neutrophil Absolute 7.23(H) 1.70 - 6.10 x10(3)/mc L [facility] Lymph % 19.8 % [facility] Lymphocytes Abs 2.0 0.9 - 3.2 x10(3)/mc L [facility] Monocyte % 5.6 % [facility] Monocyte Abs 0.6 0.3 - 0.9 x10(3)/ L [facility] Eos % 0.6 % [facility] Eosinophils Abs 0.1 0.0 - 0.4 x10(3)/ L [facility] Basophil % 0.3 % [facility] Baso Absolute 0.0 0.0 - 0.1 x10(3)/ L [facility] Immature Gran % 0.40 % [facility] Comment: Immature granulocytes(IG's)percentage and absolute count will include metamyelocytes, myelocytes, and promyelocytes. Blood smears from CBCs yielding IG's will be scanned manually for concordance. If this scan disagrees with the automated IG or if promyelocytes are noted, a manual differential will be performed. Immature Gran Absolute 0.04 0.00 - 0.04 x10(3)/ L [facility] Blood 04/24/2023 8:26 PM EDT 04/24/2023 8:34 PM EDT Narrative Resulting Agency Comment Spec In Lab Vicente Zhang MD HEMATOLOGY ORDERABLE S [facility] [place] [address] * (ABNORMAL) Hemogram (04/24/2023 8:26 PM EDT) White Blood Cell 9.9(H) 4.0 - 9.5 x10(3)/ L [facility] Red Blood Cell 3.32(L) 4.00 - 5.21 x10(6)/ L [facility] Hemoglobin 9.4(L) 11.7 - 15.5 g/dL [facility] Hematocrit 28.8(L) 35.7 - 45.8 % [facility] Mean Cell Volume 86.7 82.6 - 94.4 fL [facility] Mean Cell Hemoglobin 28.3 27.1 - 32.0 pg [facility] Mean Cell Hemoglobin Concentration 32.6 31.7 - 35.0 g/dL [facility] Platelet 191 145 - 357 x10(3)/mc L [facility] RDW Standard Deviation 43.5 37.0 - 46.0 fL [facility] RDW coefficient of variation 13.8 11.5 - 14.1 % [facility] Mean Platelet Volume 12.5 7.6 - 12.[address] [facility] NRBC% auto 0.0 % [facility] NRBC Absolute 0.000 0.000 - 0.000 x10(3)/mc L [facility] Blood 04/24/2023 8:26 PM EDT 04/24/2023 8:34 PM EDT Narrative Resulting Agency Comment Spec In Lab Vicente Zhang MD HEMATOLOGY ORDERABLE S [facility] [place] [address] * (ABNORMAL) Comprehensive metabolic panel (non-fasting) (04/24/2023 8:26 PM EDT) Glucose 82 65 - 199 mg/dL [facility] Comment:Diabetes: >=200 mg/d L plus symptoms Blood Urea Nitrogen 8 8 - 18 mg/dL [facility] Creatinine 0.68(L) 0.70 - 1.20 mg/dL [facility] Sodium 141 135 - 145 mmol/L [facility] Potassium 3.7 3.5 - 5.0 mmol/L [facility] Comment: Please note: ??Patients with WBC >100,000 may have falsely elevated Potassium levels. ??For accurate Potassium quantification in these patients send serum separator tube (gold top) for subsequent determinations. ??Contact the Clinical Chemistry Laboratory if there are any questions. Chloride 108(H) 98 - 107 mmol/L [facility] Carbon Dioxide 20(L) 22 - 31 mmol/L [facility] Anion Gap 13 5 - 15 mmol/L [facility] Calcium 8.6 8.5 - 10.5 mg/dL [facility] Protein, Total 6.3 6.1 - 8.0 g/dL [facility] Albumin 3.3 3.2 - 5.2 g/dL [facility] Aspartate Aminotransferase 9 0 - 30 unit/L [facility] Alanine Aminotransferase 6 0 - 30 unit/L [facility] Alkaline Phosphatase 81 35 - 105 unit/L [facility] Bilirubin, Total <0.2(L) 0.2 - 1.3 mg/dL [facility] Est Glomerular Filtration Rate 122 >=60 mL/min/1. 73 m?? [facility] Comment: This patient's estimated GFR was [...] In Lab Casey Armendariz MD CHEMISTRY ORDERABLES [facility] [place] [address] * CT Pelvis Soft Tissue (GI BURR FILER) w Contrast (04/24/2023 4:06 PM EDT) Anatomical [...] have questions please contact the health care technician that requested your imaging first. ? Electronically signed by: Lisha Bolton MD, [facility] ([phone]), at 04/24/2023 6:01 PM Narrative 04/24/2023 6:01 PM EDT EXAMINATION: CT PELVIS SOFT TISSUE (GI BURR FILER)W CONTRAST CLINICAL HISTORY: assess subcutaneous incisional abscess [...] 04/24/2023 EXAMINATION: CT PELVIS SOFT TISSUE (GI BURR FILER)W CONTRAST CLINICAL HISTORY: assess subcutaneous incisional abscess [...] who have questions please contactthe health care technician that requested your imaging first. Electronically signed by: Lisha Bolton MD, [facility] ([phone]), at 04/24/2023 6:01 PM Casey Armendariz MD IMG CT ORDERABLES * Anaerobic Culture (04/24/2023 2:31 PM EDT) Anaerobic Culture No anaerobic organisms isolated [facility] Abdominal Fluid 04/24/2023 2 :31 PM EDT 04/24/2023 3:05 PM EDT Comment:Culture from probing of Pfannenstiel incision Narrative Resulting Agency Comment Spec In Lab Risa Anne MD MICROBIOLOGY - GEN ERAL ORDERABLES Performing Organization Address City/[facility]/ZIP Co de Phone Number [facility] [place] [address] * (ABNORMAL) Body Fluid Culture, Aerobic (04/24/2023 2:31 PM EDT) Body Fluid Culture Few mixed Gram Negative and Positive organisms(A) [facility] Gram Stain Cytocentrifuge Gram Stain performed Neutrophils seen Moderate Gram Positive Cocci seen (A) [facility] Organism Gram Positive Cocci(A) [facility] Abdominal Fluid 04/24/2023 2 :31 PM EDT 04/24/2023 3:05 PM EDT Comment:Culture from probing of Pfannenstiel incision Narrative Resulting Agency Comment Spec In Lab Risa Anne MD MICROBIOLOGY - GEN ERAL ORDERABLES Performing Organization Address [facility] Co de Phone Number [facility] [place] [address] documented in this encounter Visit Diagnoses Diagnosis [...] Mccoy) documented in this encounter Care Teams Tumbler Dyeing Machine Operator Relationship Specialty Start Date End Date Analisa Martinez [place] [facility] [place] [address] PCP - General 11/30/22 documented as of this encounter
--- OUTSIDE RECORDS SUMMARY | 2024-07-13 17:43 | XMS_ITS | Encounter Summary ---
[place] [address] Care Team Providers Care Sales Engineer Account Manager Name Role Phone Analisa Martinez Primary Care Provider [phone] Reason for Visit * Auth/Cert (Routine) Specialty Diagnoses / Procedures Referred By Contac t Referred To Contact Diagnoses prrior with window Procedures PRO DELIVERY ONLY ER OBSVO Sujata Prater MD [facility] [address] [place] [address] [facility] Referral ID Status Reason Start Date Expiration Date Visits Re quested Visits Authorized [id number] 1 1 Encounter Details Date Type Department Care Team (Late st Contact Info) Description 04/12/2023 1:00 PM EDT - 04/12/2023 3:22 PM EDT [place] [phone] Mary Headley MD @ DELIVERY (WRVU 16.13) Social History Tobacco [...] Denise Julian Patient Age: 27 y.o. Language: Guyanese Race: White Ethnicity: Not nor Admit date: 04/12/2023 Discharge date and time: 04/15/2023 Attending Physician: Mary Headley MD Discharge Physician: Dr. Fide Haas Care Provider: [facility] Referring Hospital: N/A Follow-up Recommendations for Providers: - 2 week mood check - 6 week visit Inpatient Provider Contact Information: [facility] TILE DECORATOR Department, Discharge Diagnoses (Hospital Problems) and Secondary [...] Delivery Information Information for the patient's : Eliel Baby Girl [[id number]] INFORMATION Baby Jese Julian 04/12/2023 4:21 PM by Lower Segment Transverse Sex: female Gestational Age: 36w2d [place] Measurements: Weight: 6 lb 5.9 oz (2890 [...] as: Protonix Refills: 0 vitamin 27 & zgaxonp-ganu-WU 60 mg iron-1 mg Tablet Take 1 [...] Instructions: Scheduling Instructions: Comments: Denise Julian [address] [place] [address] [facility] [phone] Infant's : 04/12/23 Insurance: [place] Pay[place] Plan Address Payor Plan Phone Number Payor Plan Fax Number Effective Dates [address] 01/25/2023 - None [facility] [phone] Subscriber Name Subscriber Date Member ID DENISE JULIAN 1995 [id number] [employer] # [phone] Symphony breast pump [id number] Length of need: 3 months 's diagnosis: Infant born at 36 weeks 2 days gestation. admitted to the N for respiratory distress Purpose of Appliance: To Initiate and Maintain Medical Necessity: /Lactating Mother- Z39.1 Breast Engorgement relative to infant born at 36 weeks gestation Feeding problem of , unspecified P92.9 Premature Infant in ICN from mother P07.30 36 completed weeks P07.39 (36 weeks, 0 days, through 36 weeks, 6 days) A standard breast pump will not provide sufficient milk for this baby. [facility] NPI #: [id number] DEPARTMENT [facility] ACCESS [place] MED[place] MEDICAL NECESSITY FORM (MNF) ORTHOTICS, PROSTHETICS, MEDICAL SUPPLIES & EQUIPMENT All claims for supplies and equipment require a written order. Orders must be signed by a physician, physician physicians assistant, or nurse practitioner. All home health [...] or on other documentation submitted to the [facility] and DXC. The codes submitted to [facility] and DXC must matchthe description documented by the ordering provider. All orders must adhere to state and federal rules and regulations. [place] Medicaid Rules can be found online at [email or web address]. Section A: (must be completed or reviewed and signed by ordering provider) Beneficiary's name: Denise Julian Medicaid ID#: [place] Payor Plan Address Payor Plan Phone Number Payor Plan Fax Number Effective Dates [facility] 888 01/25/2023 - None [facility] [phone] Subscriber Name Subscriber Date Member ID DENISE JULIAN 1995 [id number] Diagnoses: born at 36 weeks 2 days gestation. admitted to the ICN for respiratory distress Purpose of Appliance: To Initiate and Maintain Medical Necessity: /Lactating Mother- Z39.1 Breast Engorgement relative to infant born at 36 weeks gestation Feeding problem of , unspecified P92.9 Premature in ICN from mother P07.[address] of service: Is the beneficiary living in a fpc facility? Yes [ ] No[x] Is the [...] address: Please see ordering physician signature below. [facility], [address] [place] [address] 6. Ordering provider's signature: Please see order [...] identified in the Provider Manual, available at: [email or web address]. For exceptions, an MNF must be kept on file by the DME supplier. Prior Authorization: The DME supplier must include a copy of an MNF with every Prior Authorization request. Fax the MNF and any other supporting documents to the [facility] at . Use of this [facility] Medical Necessity Form is recommended for all prior authorization requests to ensure timely processing. Medicaid may request a copy of the medical record upon audit. *INSTRUCTIONS FOR SECTIONS A & B* Section A must be completed or reviewed, signed, and dated by the ordering physician/physician physicians assistant/nurse practitioner. Section B must be completed [...] must appear on other documentation submitted to [facility] for PA and to [facility] for billing), medical necessity rationale, expected length of need (will be interpreted as months unless stated otherwise), and the number ofitems needed (for example: 2 bottles of sterile saline per month). NOTE: If the quantity ordered ismore than the number allowed (based on customary usage and as listed in the [facility] DME Restriction list, available at: [email or web address]), an explanation from the physician is required. [...] Hospital grade rental pump Size requested: Follow-up [CQN319 Custom] As directed Process Instructions: Scheduling Instructions: Comments: - gestational diabetic counseling with staff educator at the time of the visit [...] aware, opioid use is a concern in [place] and [place]. We recommend that families with [...] overwhelmed. Emergency Resources National Suicide Hotlines: or [place]: Call/Text [facility] Mental Health Crisis Hotline: Call/Text [address] [facility] Mental Health Hotline: Call/Text Call your doctor or diesel mechanic farm for: Seizure (call 911) Headache which isn't [...] prior to you follow up appointment. Your [facility] Provider can be reached during office hours at [facility] AFTER OFFICE HOURS for the channel opener or diesel mechanic farm c consultant Post- Warning Signs Most women who [...] by mouth daily. 05/24/2023 vitamin 27 & izgkmiq-vjad-EL 60 mg iron-1 mg Tablet Take 1 [...] Delivery Note Information for the patient's : Eliel, Baby Girl [[id number]] Delivery Date and Time:04/12/2023 4:21 PM Delivery [...] 04/14/2023 3:36 PM EDT [facility] Social Work Note Patient: DENISE ELIEL Relevant Information: This SW met with Denise [...] to her house rather than stay at [facility] so she can tend to them. Plan: This SW will remain available to provide additional support to patient as needed/desired by patient. TITO Melo Pronouns: She/Her Trench Shovel Operator [facility] [email or web address] Pager: [phone] [email or web address] On License Of [facility] * Trina Bravo MD [...] and had a BM. Pumping colostrum for infant in ICN. Her pain continues to be [...] Gross per 24 hour Intake -- Output 0 ml Net -2049 ml Exam: Gen: NAD Cardiac: RRR Pulmonary: [...] intermittent poor tone, QBL 880 mL. S: Deinse is feeling well this morning. She is [...] mg by mouth daily. vitamin 27 & wiqfknv-ffnd-AN 60 mg iron-1 mg Tablet Take 1 [...] 135, Variability: moderate, Accels: yes, Decels: none, [place]: none Lab Results Component Value Date ABORH [...] seen and discussed with Dr. Headley, Attending TILE DECORATOR. Vicente Zhang MD, PGY3 Obstetrics and Gynecology [...] was weaned slightly. Analisa Shepard RN, IBCLC [facility] Services * Plan of Care - Cathy [...] weight loss: -4% MATERNAL INFO: Denise Julian [id number] 1995 G 4 P 3 Significant History: [...] ice packs after pumping X 48 hours Welaka oil to nipples prior to pumping Frequent and prolonged maternal- skin to skin contact Close support and follow up Pamphlets Provided Colostrum swabbing Breast Massage and Hand Expression Providing Breastmilk for your infant in the Intensive Care Nursery On-going Concerns: Inexperienced BF mom Delayed adequate feeding, ICN admission, need for respiratory support Late Infant Monitor growth and nutrition closely 15 minutes were spent with this family, providing assessment, assistance, education, and support. Mother voices understanding of education and recommendations. Analisa Shepard RN, IBCLC [facility] Services * Note - Jannette Lorenz RN [...] pump. She has rented one via the [employer]. She is sized to a 24 mm flange. We discussed pumping techniques. RECOMMENDATIONS: Breast massage and hand expression before and during pumping Welaka oil to nipples prior to pumping Pump [...] Betzy / Jennifer Ramírez Initial Assessment This show card writer introduced self and reviewed role; services were accepted. Patient Name: Denise Julian Child's Legal Name (if applicable): Annia Prakash Source of Information: Chart Review and patient interview Initial Assessment for: Mother / Infant Couplet Was Conifer contacted to update information? No Home Address confirmed as: [address] [facility] [address] Verified Phone Numbers confirmed as: Extended Emergency Contact Information Primary Emergency Contact: Carl Prakash Address: [address] [place] [address] [place] Relation: Clotilde Primary Care Provider listed as: BRIDGETT Turner /Child PCP, if different: Will be Dr. Lloyd Chamberlain, [facility] Reason for Hospitalization: Patient Active [...] room mate, older children with grandparents in [place]. Housing for family / support system while patient admitted to [facility] [place]: Rooming inat , Information regarding [facility] given Nutrition Food: Secure Current Nutrition of Patient: PO - regular diet Breast pump needs: Hospital grade breast pump rental provided (Given rental pump number [id number], approved by Brianna holliday [facility]) Social and Community Resources: Patient is not employed. Her partner, Carl Prakash, is employed PTas a executive sales assistant for [employer]). Transportation Baseline Transportation: Personal Vehicle Transportation at Discharge: Personal Vehicle - Family / Friend to drive Current Patient / Caregiver Coping: coping okay, teary at times Child Life Consult Needed for Other Children in the Home / Family: declined DRESS DESIGNER Consult Needed: possibly Health Coverage confirmed as: [place]ICA[place] Payor: [place] / Plan: [place] / Product Type: *No Product type* / N/A patient to be added to above insurance plan: Yes Prescription Coverage: Yes Preferred Pharmacy: [id number] - [place], [place] - [address] [place] [id number] Anticipated Barriers to Discharge / Special Considerations: no Plan: Patient to discharge to [facility] when medically stable. Follow up with OB team. to discharge home with PCP and VNA follow up. second vp hr assessment / DRESS DESIGNER remain available as needed for coordination of [...] note for further details. Dr. Headley, attending Nut Chopper, present for entire delivery without conflicting clinical responsibilities. Maria Teresa Dhillon MD, PGY4 Obstetrics and Gynecology Information for the patient's : Eliel, Baby Girl [[id number]] DELIVERY SUMMARY FOR Baby Jese Julian (please [...] QBL Anesthesia 880 mL Total 880 Delivery ([place]) Delivery Date: 04/12/23 Delivery Time: 4:21:00 PM Sex: Female Presentation: Vertex Attempted ?: No Delivery Type: Classification: scheduled Delivery Type (Specific): Lower Segment Transverse Shoulder Dystocia Shoulder dystocia present?: No Delivery Information Delivery Location: OR Delivering Clinician: Vicente Zhang MD ICN Staff Present: Yes Other Personnel: Provider Role Chandrika Elmore, senior corporate strategy manager Nurse Mary Headley MD Electric Organ Checker Tami Victor, senior corporate strategy manager Assist Maria Teresa Dhillon MD Resident Navya Martinez, [facility] Anesthesia Method: Combined Spinal/Epidural Cord Vessels: 3 [...] for ~30 minutes. Transferred to [facility] and placed on Bubble CPAP adjusting to CPAP of 7, 25-35% FiO2. (per respiratorynote) Maternal Feeding and Skin to Skin Maternal Choice for (s) Feeding on Admission: Reason skin to skin not initiated: Acuity [place] Medications Medications Given: vitamin K, erythromycin Measurements Weight: [...] Operative Note Patient Name: Denise Julian : [id number] MR#: [id number] Case Date: 04/12/2023 Surgeon: Surgeon(s) and Role: [...] Dhillon MD - 04/12/2023 3:45 PM EDT [facility] Operative Note Patient Name: Denise Julian : [id number] MR#: [id number] Case Date: 04/12/2023 Surgeon: Surgeon(s) and Role: [...] cord was doubly clamped and cut. The was handed off to the waiting pediatricians, [...] There was no imbricating layer, however several dlhquk-br-vapibe were placed over the hysterotomy after which [...] 04/12/2023 5:52 PM EDT FALLOPIAN TUBE(S)\LIGATION\TRANS ECTION\ POST-\ABD\LANDSCAPE CREW LEADER Routine 04/12/2023 3:27 PM EDT Dehiscence of old uterine scar with extension before onset of labor, delivered [place] Fallopian Tube, ([id number]) 04/12/2023 3:02 PM EDT Dehiscence of old uterine scar with extension before onset of labor, delivered Delivery Only ([id number]) 04/12/2023 3:02 PM EDT Dehiscence of old [...] with reflex RPR (04/13/2023 3:10 PM EDT) Pathologist [facility] Syphilis IgG/IgM Negative Negative [facility] Blood 04/13/2023 3:10 PM EDT 04/13/2023 3:36 PM EDT Narrative Resulting Agency Comment Spec In Lab Mary Headley MD CHEMISTRY ORDERABLE S [facility] [place] [address] * (ABNORMAL) Differential, Automated (04/13/2023 5:15 AM EDT) [facility] Neutrophil % 84.2 % [facility] Neutrophil Absolute 15.69(H) 1.70 - 6.10 x10(3)/mc L [facility] Lymph % 7.7 % [facility] Lymphocytes Abs 1.4 0.9 - 3.2 x10(3)/mc L [facility] Monocyte % 7.1 % [facility] Monocyte Abs 1.3(H) 0.3 - 0.9 x10(3)/mc L [facility] Eos % 0.0 % [facility] Eosinophils Abs 0.0 0.0 - 0.4 x10(3)/mc L [facility] Basophil % 0.2 % [facility] Baso Absolute 0.0 0.0 - 0.1 x10(3)/mc L [facility] Immature Gran % 0.80 % [facility] Comment: Immature granulocytes(IG's)percentage and absolute count will include metamyelocytes, myelocytes, and promyelocytes. Blood smears from CBCs yielding IG's will be scanned manually for concordance. If this scan disagrees with the automated IG or if promyelocytes are noted, a manual differential will be performed. Immature Gran Absolute 0.14(H) 0.00 - 0.04 x10(3)/mc L [facility] Blood 04/13/2023 5:15 AM EDT 04/13/2023 5:23 AM EDT Narrative Resulting Agency Comment Spec In Lab Jocelin Mariscal MD HEMATOLOGY ORDERABLE S [facility] [place] [address] * (ABNORMAL) Hemogram (04/13/2023 5:15 AM EDT) White Blood Cell 18.6(H) 4.0 - 9.5 x10(3)/mc L [facility] Red Blood Cell 3.55(L) 4.00 - 5.21 x10(6)/mc L [facility] Hemoglobin 10.4(L) 11.7 - 15.5 g/dL [facility] Hematocrit 30.2(L) 35.7 - 45.8 % [facility] Mean Cell Volume 85.1 82.6 - 94.4 fL [facility] Mean Cell Hemoglobin 29.3 27.1 - 32.0 pg [facility] Mean Cell Hemoglobin Concentration 34.4 31.7 - 35.0 g/dL [facility] Platelet 137(L) 145 - 357 x10(3)/mc L [facility] RDW Standard Deviation 41.2 37.0 - 46.0 fL [facility] RDW coefficient of variation 13.2 11.5 - 14.1 % [facility] Mean Platelet Volume 13.2(H) 7.6 - 12.9 fL [facility] NRBC% auto 0.0 % [facility] NRBC Absolute 0.000 0.000 - 0.000 x10(3)/mc L [facility] Blood 04/13/2023 5:15 AM EDT 04/13/2023 5:23 AM EDT Narrative Resulting Agency Comment Spec In Lab Jocelin Mariscal MD HEMATOLOGY ORDERABLE S Performing Organization Address City/[facility]/ZIP Co de Phone Number [facility] [place] [address] * POCT Glucose (04/12/2023 11:35 PM EDT) Glucose, POC 129 65 - 199 mg/dL [facility] Comment: Supplemental ranges: <140 mg/dL before meals <180 mg/dL all other times of the day Blood 04/12/2023 11:3 5 PM EDT 04/12/2023 11:35 PM EDT Mary Headley MD POINT OF CARE TEST ORDERABLES Performing Organization Address [facility] Co de Phone Number [facility] [place] [address] * Specimen to Pathology (04/12/2023 5:53 PM EDT) AP Specimen 04/12/2023 5:53 PM EDT 04/12/2023 5:53 PM EDT Narrative [facility] - 04/12/2023 5:53 PM EDT Specimen requisition ordered. ??Separate Pathology report to follow Mary Headley MD PATHOLOGY/CYTOLOGY ORDERABLES Performing Organization Address [facility] Co de Phone Number [facility] [place] [address] * Specimen to Pathology (04/12/2023 5:53 PM EDT) AP Specimen 04/12/2023 5:53 PM EDT 04/12/2023 5:53 PM EDT Narrative [facility] - 04/12/2023 5:53 PM EDT Specimen requisition ordered. ??Separate Pathology report to follow Mary Headley MD PATHOLOGY/CYTOLOGY ORDERABLES Performing Organization Address [facility] Co de Phone Number [facility] [place] [address] * Surgical Pathology Report (04/12/2023 5:52 PM EDT) Final Diagnosis [id number] ? Location: BP; BP05; A The signing [...] Obrien Verified: ??04/19/2023 10:37 ??Pathologist Performed at: ??-[facility] Dept. of Pathology, [place] [address] Signal Technician: Mahendra Turcios MD, FCAP, ??CLIA Certificate: [id number] SPECIMEN(S) SUBMITTED A - Placenta B - [...] formed cotyledons. Parenchyma: Boggy, purple-red. Sections/Processi ng: Agent Spa Desk sections in 8 cassettes as follows: ?A1: ??Membrane roll ?A2: ??Proximal and distal cord ?A3-A8: ??Full thickness parenchyma, bisected B - Labeled/Fixative: ?? Bilateral fallopian tubes , formalin. Tissue Description: Intact, bilateral salpingectomy. . SPECIMEN PROCESSING Fallopian Tube 1: 12.0 x 0.9 cm, fimbriated. Fallopian Tube 2: 9.8 x 0.9 cm, fimbriated. Sections/Processi ng: Agent Spa Desk sections in 4 cassettes as follows: ?B1: ??Fallopian tube 1 fimbria ?B2: ??Fallopian tube 1 cross sections ?B3: ??Fallopian tube 2 fimbria ?B4: ??Fallopian tube 2 cross sections ??ajw 04/19/2023 10:37 AM EDT [facility] TISSUE SPECIMEN FROM PLACENTA / Unknown 04/12/2023 5:52 PM EDT 04/12/2023 5:52 PM EDT False Vocal Cords, Bilateral 04/12/2023 5:52 PM EDT 04/12/2023 5:52 PM EDT Vicente Zhang MD PATHOLOGY/CYTOLOGY O RDERABLES Performing Organization Address City/[facility]/ZIP Co de Phone Number [facility] [address] [place] [address] * Group B Streptococcus Screen (04/12/2023 2:06 PM EDT) GBS Screen Neg [facility] Vaginal/Rectal 04/12/2023 2: 06 PM EDT 04/12/2023 3:32 PM EDT Comment:Penicillin Allergy?- >Yes Narrative Resulting Agency Comment Spec In Lab Vicente Zhang MD MICROBIOLOGY - GENER AL ORDERABLES Performing Organization Address [facility] Co de Phone Number [facility] [place] [address] * Group B Strep Culture Screen (04/12/2023 2:06 PM EDT) Group B Streptococcus Culture No Group B Streptococci isolated [facility] Vaginal/Rectal 04/12/2023 2: 06 PM EDT 04/12/2023 3:32 PM EDT Comment:Penicillin Allergy?- >Yes Narrative Resulting Agency Comment Spec In Lab Mary Headley MD MICROBIOLOGY - GENE RAL ORDERABLES Performing Organization Address City/[facility]/ZIP Co de Phone Number [facility] [place] [address] * Type and Screen Validity (04/12/2023 12:00 PM EDT) T&S only valid at [facility] Comment:This Type and Screen result is only valid at the [facility] Blood 04/12/2023 12:0 0 PM EDT 04/12/2023 12:15 PM EDT Narrative Resulting Agency Comment Spec In Lab Vicente Zhang MD BLOOD BANK LAB ORDER SHABNAM Performing Organization Address City/[facility] Co de Phone Number [facility] [place] [address] * ABORH Recheck Status (04/12/2023 12:00 PM EDT) ABORH Type Recheck Completed [facility] Blood 04/12/2023 12:0 0 PM EDT 04/12/2023 12:15 PM EDT Narrative Resulting Agency Comment Spec In Lab Vicente Zhang MD BLOOD BANK LAB ORDER SHABNAM Performing Organization Address City/[facility] Co de Phone Number [facility] [place] [address] * (ABNORMAL) Differential, Automated (04/12/2023 12:00 PM EDT) Neutrophil % 72.7 % [facility] Neutrophil Absolute 7.47(H) 1.70 - 6.10 x10(3)/mc L [facility] Lymph % 19.0 % [facility] Lymphocytes Abs 2.0 0.9 - 3.2 x10(3)/mc L [facility] Monocyte % 6.3 % [facility] Monocyte Abs 0.6 0.3 - 0.9 x10(3)/mc L [facility] Eos % 0.5 % [facility] Eosinophils Abs 0.0 0.0 - 0.4 x10(3)/ L [facility] Basophil % 0.4 % [facility] Baso Absolute 0.0 0.0 - 0.1 x10(3)/ L [facility] Immature Gran % 1.10 % [facility] Comment: Immature granulocytes(IG's)percentage and absolute count will include metamyelocytes, myelocytes, and promyelocytes. Blood smears from CBCs yielding IG's will be scanned manually for concordance. If this scan disagrees with the automated IG or if promyelocytes are noted, a manual differential will be performed. Immature Gran Absolute 0.11(H) 0.00 - 0.04 x10(3)/ L [facility] Blood 04/12/2023 12:0 0 PM EDT 04/12/2023 12:17 PM EDT Narrative Resulting Agency Comment Spec In Lab Vicente Zhang MD HEMATOLOGY ORDERABLE S [facility] [facility] [place] [address] * (ABNORMAL) Hemogram (04/12/2023 12:00 PM EDT) White Blood Cell 10.3(H) 4.0 - 9.5 x10(3)/mc L [facility] Red Blood Cell 3.85(L) 4.00 - 5.21 x10(6)/ L [facility] Hemoglobin 11.0(L) 11.7 - 15.5 g/dL [facility] Hematocrit 33.0(L) 35.7 - 45.8 % [facility] Mean Cell Volume 85.7 82.6 - 94.4 fL [facility] Mean Cell Hemoglobin 28.6 27.1 - 32.0 pg [facility] Mean Cell Hemoglobin Concentration 33.3 31.7 - 35.0 g/dL [facility] Platelet 137(L) 145 - 357 x10(3)/ L [facility] RDW Standard Deviation 42.0 37.0 - 46.0 fL [facility] RDW coefficient of variation 13.6 11.5 - 14.1 % [facility] Mean Platelet Volume 12.7 7.6 - 12.9 fL [facility] NRBC% auto 0.0 % [facility] NRBC Absolute 0.000 0.000 - 0.000 x10(3)/mc L [facility] Blood 04/12/2023 12:0 0 PM EDT 04/12/2023 12:17 PM EDT Narrative Resulting Agency Comment Spec In Lab Vicente Zhang MD HEMATOLOGY ORDERABLE S Performing Organization Address City/[facility]/ZIP Co de Phone Number [facility] [place] [address] * Antibody screen (04/12/2023 12:00 PM EDT) Ab Screen Interp Negative [facility] Expires at 2359 on: 04/15/2023 [facility] Blood 04/12/2023 12:0 0 PM EDT 04/12/2023 12:15 PM EDT Narrative Resulting Agency Comment Spec In Lab Vicente Zhang MD BLOOD BANK LAB ORDER SHABNAM Performing Organization Address City/[facility] Co de Phone Number [facility] [place] [address] * ABO/Rh Typing (04/12/2023 12:00 PM EDT) ABORH Type A Pos [facility] Blood 04/12/2023 12:0 0 PM EDT 04/12/2023 12:15 PM EDT Narrative Resulting Agency Comment Spec In Lab Vicente Zhang MD BLOOD BANK LAB ORDER SHABNAM Performing Organization Address City/[facility]/ZIP Co de Phone Number [facility] [place] [address] documented in this encounter Visit Diagnoses Diagnosis [...] Carrasco, RODY) 1025 (Given - Provider: Tessie Bettencourt RN) [...] (Given - Provider: Mary Ellen Carrasco RN) 0500 (Due)1024 (Given - Provider: Tessie Bettencourt, RODY)1100 (Due)1549 (Given - Provider: Tessie Bettencourt RN) [...] 0726 (Patch Removed - Provider: Cathy Sebastian RN)2010 (Patch Applied - Provider: Clementine Mendoza RN - Comment: abdomen) 1000 (Patch Removed - Provider: Cathy Sebastian RN)2243 (Patch Applied - Provider: Mary Ellen Carrasco RN - Comment: abdomen) 1043 (Patch Removed - [...] 2243 (See Alternative - Provider: Mary Ellen J Danilo, RN) oxyCODONE (Roxicodone) tablet 5 mg(Linked Group 2) 5 mg, Oral, EVERY 4 HOURS PRN, Starting on Wed04/12/23 at 1753, Until Mavis 04/15/23 at 1816, Pain, for pain scale 6-8, Routine 2314 (Given - Provider: Clementine Mendoza RN) 2243 (Given - Provider: Mary Ellen Carrasco [...] Routine documented in this encounter Care Teams Sales Engineer Account Manager Relationship Specialty Start Date End Date Analisa Martinez [place] [address] PCP - General 11/30/22 documented as of this encounter
--- OUTSIDE RECORDS SUMMARY | 2024-07-13 17:43 | XMS_ITS | Encounter Summary ---
Author Organization [facility] [place] [address] Care Team Providers Care Bench Mover Name Role Phone Analisa Martinez Primary Care Provider [phone] Encounter Details Date Type Department Care Team (Late st Contact Info) Description 04/16/2023 Orders Only Obstetrics [place] [address] Ashley Valdes MD [facility] [place] [address] Social History Tobacco Use Types Packs/Day Years [...] on filedocumented in this encounter Care Teams Bench Mover Relationship Specialty Start Date End Date Analisa Martinez PA [address] [place] [id number] PCP - General 11/30/22 documented as of this encounter
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
--- OUTSIDE RECORDS SUMMARY | 2024-07-13 17:43 | XMS_ITS | Encounter Summary ---
[place] [address] Care Team Providers Care Quality Control Operator Name Role Phone Analisa Martinez Primary Care Provider [phone] Encounter Details Date Type Department Care Team (Late st Contact Info) Description 04/01/2023 Telephone Obstetrics [place] [address] Loida Hall RN Social History [...] Returned call to Isabel Julian GA: [id number] [facility] patient Isaebl left a message with the secretaries earlier [...] on filedocumented in this encounter Care Teams Quality Control Operator Relationship Specialty Start Date End Date Analisa Martinez PA [address] [place] [address] PCP - General 11/30/22 documented as of this encounter
--- OUTSIDE RECORDS SUMMARY | 2024-07-13 17:43 | XMS_ITS | Encounter Summary ---
[place] [address] Care Team Providers Care Immigration Investigator Name Role Phone Analisa Martinez Primary Care Provider [phone] Reason for Visit * Auth/Cert (Routine) Specialty Diagnoses / Procedures Referred By Contac t Referred To Contact Diagnoses prrior with window Procedures PRO DELIVERY ONLY ER OBSVO Sujata Prater MD [facility] OBSTETRICS [place] [address] [facility] Referral ID Status Reason Start Date Expiration Date Visits Re quested Visits Authorized [id number] 1 1 Encounter Details Date Type Department Care Team (Latest Contact Info) Description 04/12/2023 10:19 AM EDT - 04/15/2023 4:16 PM EDT Hospital [place] [id number] Mary Headley MD Dehiscence of old uterine scar with extension [...] Denise Julian Patient Age: 27 y.o. Language: Tanzanian Race: White Ethnicity: Not nor Admit date: 04/12/2023 Discharge date and time: 04/15/2023 Attending Physician: Mary Headley MD Discharge Physician: Dr. Fide Haas Care Provider: [facility] Referring Hospital: N/A Follow-up Recommendations for Providers: - 2 week mood check - 6 week visit Inpatient Provider Contact Information: [facility] MACHINE REPAIRMAN Department, Discharge Diagnoses (Hospital Problems) and Secondary [...] Hospital Course Including Delivery and Events Denise Jluian is a 27 y.o. at 36w2d admitted [...] for the patient's : Rajesh Julian Girl [[id number]] INFORMATION Rajesh Julian 04/12/2023 4:21 PM by Lower Segment Transverse Sex: female Gestational Age: 36w2d Burley Measurements: Weight: 6 lb 5.9 oz (2890 [...] as: Protonix Refills: 0 vitamin 27 & eimtoqt-sjuz-IQ 60 mg iron-1 mg Tablet Take 1 [...] Instructions: Scheduling Instructions: Comments: Denise Julian [address] [place] [address] [facility] [id number] 's : 04/12/23 Insurance: MEDICAID [place] Payor Plan Address Payor Plan Phone Number Payor Plan Fax Number Effective Dates [address] 01/25/2023 - None Entered [facility] [address] Subscriber Name Subscriber Date Member ID DENISE JULIAN 1995 [id number] [employer] # [phone] Symphony breast pump [id number] Length of need: [...] not provide sufficient milk for this baby. [facility] NPI #: [id number] [facility] [place] MEDICAID MEDICAL NECESSITY FORM (MNF) ORTHOTICS, PROSTHETICS, MEDICAL SUPPLIES & EQUIPMENT All claims for supplies and equipment require a written order. Orders must be signed by a physician, physician glass ribbon machine operator assistant, or nurse practitioner. All home health [...] or on other documentation submitted to the [facility] and DXC. The codes submitted to [facility] and DXC must matchthe description documented by the ordering provider. All orders must adhere to state and federal rules and regulations. [place] Medicaid Rules can be found online at [email or web address]/ib-epfi-cmrda. Section A: (must be completed or reviewed and signed by ordering provider) Beneficiary's name: Denise Julian Medicaid ID#: [place] Payor Plan Address Payor Plan Phone Number Payor Plan Fax Number Effective Dates [facility] 888 01/25/2023 - None Entered [facility] [phone] Subscriber Name Subscriber Date Member ID DENISE JULIAN 1995 [id number] Diagnoses: born at 36 weeks 2 days gestation. admitted to the ICN for respiratory distress Purpose of Appliance: To Initiate and Maintain Medical Necessity: /Lactating Mother- Z39.1 Breast Engorgement relative to infant born at 36 weeks gestation Feeding problem of , unspecified P92.9 Premature Infant in ICN from mother P07.[address] of service: Is the beneficiary living in a penitentiary facility? Yes [ ] No[x] Is the [...] address: Please see ordering physician signature below. [facility], [address] [place] [address], [place] [address] 6. Ordering provider's signature: Please see order [...] identified in the Provider Manual, available at: [email or web address]. For exceptions, an MNF must be kept on file by the DME supplier. Prior Authorization: The DME supplier must include a copy of an MNF with every Prior Authorization request. Fax the MNF and any other supporting documents to the [facility] at . Use of this [facility] Medical Necessity Form is recommended for all prior authorization requests to ensure timely processing. Medicaid may request a copy of the medical record upon audit. *INSTRUCTIONS FOR SECTIONS A & B* Section A must be completed or reviewed, signed, and dated by the ordering physician/physician glass ribbon machine operator assistant/nurse practitioner. Section B must be completed [...] must appear on other documentation submitted to [facility] for PA and to [facility] for billing), medical necessity rationale, expected length of need (will be interpreted as months unless stated otherwise), and the number ofitems needed (for example: 2 bottles of sterile saline per month). NOTE: If the quantity ordered ismore than the number allowed (based on customary usage and as listed in the [facility] DME Restriction list, available at: [email or web address].gov/[email or web address]-[email or web address]/vrbzeqhl-gvqwlkrp-zfkmjbmqew), an explanation from the physician is required. [...] Hospital grade rental pump Size requested: Follow-up [ICS418 Custom] As directed Process Instructions: Scheduling Instructions: Comments: - gestational diabetic counseling with peer educator at the time of the visit if there is a diagnosis of gestational diabetes. Questions: Discharge References/Attachments None documented in this encounter Discharge Instructions * Discharge Instructions* Tessie Hernandez, RODY - 04/15/2023 3:01 PM EDT Images [...] aware, opioid use is a concern in [place] and [place]. We recommend that families with any member [...] overwhelmed. Emergency Resources National Suicide Hotlines: or [place]: Call/Text [facility] Mental Health Crisis Hotline: Call/Text [address] [facility] Mental Health Hotline: Call/Text Call your doctor or senior linux systems engineer for: Seizure (call 911) Headache which isn't [...] prior to you follow up appointment. Your [facility] Provider can be reached during office hours at [facility] AFTER OFFICE HOURS for the horse breeder or senior linux systems engineer instructional designer Post- Warning Signs Most women who give [...] by mouth daily. 05/24/2023 vitamin 27 & feucvdo-isrx-KL 60 mg iron-1 mg Tablet Take 1 [...] for the patient's : Young, Baby Girl [[id number]] Delivery Date and Time:04/12/2023 4:21 PM Delivery [...] MSW - 04/14/2023 3:36 PM EDT [facility] Social Work Note Patient: DENISE JULIAN Relevant [...] needed/desired by patient. TITO Melo Pronouns: She/Her Instrumentation Instructor [facility] [email or web address] [email or web address] Pager: [phone] [email or web address] [facility] * Trina Bravo MD - [...] hour Intake -- Output 0 ml Net -2050 ml Exam: Gen: NAD [...] of oxycodone. PT was able to visit in the ICN and stayed next door [...] mg by mouth daily. vitamin 27 & pjcoawt-seau-EN 60 mg iron-1 mg Tablet Take 1 [...] 135, Variability: moderate, Accels: yes, Decels: none, [place]: none Lab Results Component Value Date ABORH [...] seen and discussed with Dr. Headley, Attending MACHINE REPAIRMAN. Vicente Zhang MD, PGY3 Obstetrics and Gynecology [...] was weaned slightly. Analisa Shepard RN, IBCLC [facility] Services * Plan of Care - Cathy [...] ASSESSMENT INPATIENT Encounter Date/Time: 04/14/231444 Baby's name: Baby Jese Julian : 04/12/2023 Time of : 4:21 [...] weight loss: -4% MATERNAL INFO: Denise Julian [id number] 1995 G 4 P 3 Significant History: [...] ice packs after pumping X 48 hours Buhl oil to nipples prior to pumping Frequent [...] education and recommendations. Analisa Shepard RN, IBCLC [facility] Services * Note - Jannette Lorenz RN [...] pump. She has rented one via the [employer]. She is sized to a 24 mm flange. We discussed pumping techniques. RECOMMENDATIONS: Breast massage and hand expression before and during pumping Buhl oil to nipples prior to pumping Pump [...] Betzy / Jennifer Ramírez Initial Assessment This ghost writer introduced self and reviewed role; services were accepted. Patient Name: Denise Young Child's Legal Name (if applicable): Annia Beauchamp Opalsharon Source of Information: Chart Review and patient interview Initial Assessment for: Mother / Couplet Was Conifer contacted to update information? No Home Address confirmed as: [address] [facility] [address] Verified Phone Numbers confirmed as: Extended Emergency Contact Information Primary Emergency Contact: Carl Prakash Address: [address] [place] [address] [place] Relation: Clotilde Primary Care Provider listed as: BRIDGETT Turner /Child PCP, if different: Will be Dr. Lloyd Chamberlain, [facility] Reason for Hospitalization: Patient Active [...] room mate, older children with grandparents in [place]. Housing for family / support system while patient admitted to [facility] Mobile: Rooming [facility], Information regarding [facility] given Nutrition Food: Secure Current Nutrition of Patient: PO - regular diet Breast pump needs: Hospital grade breast pump rental provided (Given rental pump number [id number], approved by Brianna holliday [facility]) Social and Community Resources: Patient is not employed. Her partner, Carl Prakash, is employed PTas a sales representative wire rope for [employer]). Transportation Baseline Transportation: Personal Vehicle Transportation at Discharge: Personal Vehicle - Family / Friend to drive Current Patient / Caregiver Coping: coping okay, teary at times Child Life Consult Needed for Other Children in the Home / Family: declined CHILD PSYCHOLOGY TEACHER Consult Needed: possibly Health Coverage confirmed as: [place]ICAID [place] Payor: [place] / Plan: [place] / Product Type: *No Product type* / N/A patient to be added to above insurance plan: Yes Prescription Coverage: Yes Preferred Pharmacy: [facility] [place], [place] - [address] [place] [id number] Anticipated Barriers to Discharge / Special Considerations: no Plan: Patient to discharge to [facility] when medically stable. Follow up with OB team. to discharge home with PCP and VNA follow up. director of sustainability programs / CHILD PSYCHOLOGY TEACHER remain available as needed for coordination of [...] note for further details. Dr. Headley, attending Software Developer Mid Level, present for entire delivery without conflicting clinical responsibilities. Maria Teresa Dhillon MD, PGY4 Obstetrics and Gynecology Information for the patient's : Eliel, Baby Girl [[id number]] DELIVERY SUMMARY FOR Baby Girl Young (please note there is a separate summary [...] QBL Anesthesia 880 mL Total 880 Delivery (Burley) Delivery Date: 04/12/23 Delivery Time: 4:21:00 PM Sex: Female Presentation: Vertex Attempted ?: No Delivery Type: Classification: scheduled Delivery Type (Specific): Lower Segment Transverse Shoulder Dystocia Shoulder dystocia present?: No Delivery Information Delivery Location: OR Delivering Clinician: Vicente Zhang MD [facility] Staff Present: Yes Other Personnel: Provider Role Chandrika Elmore, shirt ironer supervisor Nurse Mary Headley MD Departmental Shipping Clerk Tami Victor, shirt ironer supervisor Assist Maria Teresa Dhillon MD Resident Navya Martinez, [facility] Anesthesia Method: Combined Spinal/Epidural Cord Vessels: 3 Vessels Complications: None Gases Sent?: Yes Cord Insertion: eccentric Assessment & APGARS Living status: Living Apgars 1 Minute: 5 Minute: 10 Minute 15 Minute 20 Minute Skin Color: 0 1 Heart Rate: 2 2 Reflex Irritability: 1 1 Muscle Tone: 1 1 Respiratory Effort: 1 1 Total: 5 6 Apgars Assigned By: CHANDRIKA FAITHMS4 Resuscitation Method: PPV Resuscitation Comment: Received pt in OR s/p requiring PPV intermittently for ~30 minutes. Transferred to [facility] and placed on Bubble CPAP adjusting to CPAP of 7, 25-35% FiO2. (per respiratorynote) Maternal Feeding and Skin to Skin Maternal Choice for (s) Feeding on Admission: Reason skin to skin not initiated: Burley Acuity Burley Medications Medications Given: vitamin K, erythromycin Measurements [...] Operative Note Patient Name: Denise Julian : [id number] MR#: [id number] Case Date: 04/12/2023 Surgeon: Surgeon(s) and Role: [...] salpingectomy Anesthesia: CSE CSE Findings: viable female infant in cephalic presentation with copious clear amniotic [...] Dhillon MD - 04/12/2023 3:45 PM EDT [facility] Operative Note Patient Name: Denise Julian : [id number] MR#: [id number] Case Date: 04/12/2023 Surgeon: Surgeon(s) and Role: [...] There was no imbricating layer, however several ddgzxm-ue-krpixf were placed over the hysterotomy after which [...] 04/12/2023 5:52 PM EDT FALLOPIAN TUBE(S)\LIGATION\TRANS ECTION\ POST-\ABD\FREELANCE RECRUITER Routine 04/12/2023 3:27 PM EDT Dehiscence of old uterine scar with extension before onset of labor, delivered [place] Fallopian Tube, ([id number]) 04/12/2023 3:02 PM EDT Dehiscence of old uterine scar with extension before onset of labor, delivered Delivery Only ([id number]) 04/12/2023 3:02 PM EDT Dehiscence of old [...] 04/12/2023 12:00 PM EDT TYPE AND SCREEN (MC/CGP/SHANTEL) STAT 04/12/2023 12:00 PM EDT documented in this encounter Results * Syphilis Screening Antibody with reflex RPR (04/13/2023 3:10 PM EDT) Syphilis IgG/IgM Negative Negative [facility] Blood 04/13/2023 3:10 PM EDT 04/13/2023 3:36 PM EDT Narrative Resulting Agency Comment Spec In Lab Mary Headley MD CHEMISTRY ORDERABLE S [facility] [place] [address] * (ABNORMAL) Differential, Automated (04/13/2023 5:15 AM EDT) Neutrophil % 84.2 % [facility] Neutrophil Absolute 15.69(H) 1.70 - 6.10 x10(3)/mc L [facility] Lymph % 7.7 % [facility] Lymphocytes Abs 1.4 0.9 - 3.2 x10(3)/mc L [facility] Monocyte % 7.1 % [facility] Monocyte Abs 1.3(H) 0.3 - 0.9 x10(3)/mc L [facility] Eos % 0.0 % [facility] Eosinophils Abs 0.0 0.0 - 0.4 x10(3)/mc L [facility] Basophil % 0.2 % [facility] Baso Absolute 0.0 0.0 - 0.1 x10(3)/mc L [facility] Immature Gran % 0.80 % [facility] Comment: Immature granulocytes(IG's)percentage and absolute count will include metamyelocytes, myelocytes, and promyelocytes. Blood smears from CBCs yielding IG's will be scanned manually for concordance. If this scan disagrees with the automated IG or if promyelocytes are noted, a manual differential will be performed. Immature Gran Absolute 0.14(H) 0.00 - 0.04 x10(3)/mc L [facility] Blood 04/13/2023 5:15 AM EDT 04/13/2023 5:23 AM EDT Narrative Resulting Agency Comment Spec In Lab Jocelin Mariscal MD HEMATOLOGY ORDERABLE S Performing Organization Address City/[facility]/ZIP Co de Phone Number [facility] [place] [address] * (ABNORMAL) Hemogram (04/13/2023 5:15 AM EDT) White Blood Cell 18.6(H) 4.0 - 9.5 x10(3)/mc L [facility] Red Blood Cell 3.55(L) 4.00 - 5.21 x10(6)/[facility] Hemoglobin 10.4(L) 11.7 - 15.5 g/dL [facility] Hematocrit 30.2(L) 35.7 - 45.8 % [facility] Mean Cell Volume 85.1 82.6 - 94.4 fL [facility] Mean Cell Hemoglobin 29.3 27.1 - 32.0 pg [facility] Mean Cell Hemoglobin Concentration 34.4 31.7 - 35.0 g/dL [facility] Platelet 137(L) 145 - 357 x10(3)/mc L [facility] RDW Standard Deviation 41.2 37.0 - 46.0 fL [facility] RDW coefficient of variation 13.2 11.5 - 14.1 % [facility] Mean Platelet Volume 13.2(H) 7.6 - 12.9 fL [facility] NRBC% auto 0.0 % [facility] NRBC Absolute 0.000 0.000 - 0.000 x10(3)/mc L [facility] Blood 04/13/2023 5:15 AM EDT 04/13/2023 5:23 AM EDT Narrative Resulting Agency Comment Spec In Lab Jocelin Mariscal MD HEMATOLOGY ORDERABLE S Performing Organization Address City/[facility]/ZIP Co de Phone Number [facility] [place] [address] * POCT Glucose (04/12/2023 11:35 PM EDT) Glucose, POC 129 65 - 199 mg/dL [facility] Comment: Supplemental ranges: <140 mg/dL before meals <180 mg/dL all other times of the day Blood 04/12/2023 11:3 5 PM EDT 04/12/2023 11:35 PM EDT Mary Headley MD POINT OF CARE TEST ORDERABLES Performing Organization Address [facility] Co de Phone Number [facility] [place] [address] * Specimen to Pathology (04/12/2023 5:53 PM EDT) AP Specimen 04/12/2023 5:53 PM EDT 04/12/2023 5:53 PM EDT Narrative [facility] - 04/12/2023 5:53 PM EDT Specimen requisition ordered. ??Separate Pathology report to follow Mary Headley MD PATHOLOGY/CYTOLOGY ORDERABLES Performing Organization Address [facility] Co de Phone Number [facility] [place] [address] * Specimen to Pathology (04/12/2023 5:53 PM EDT) AP Specimen 04/12/2023 5:53 PM EDT 04/12/2023 5:53 PM EDT Narrative [facility] - 04/12/2023 5:53 PM EDT Specimen requisition ordered. ??Separate Pathology report to follow Mary Headley MD PATHOLOGY/CYTOLOGY ORDERABLES Performing Organization Address [facility] Co de Phone Number [facility] [place] [address] * Surgical Pathology Report (04/12/2023 5:52 PM EDT) Final Diagnosis [id number] ? Location: BP; BP05; A The signing [...] Obrien Verified: ??04/19/2023 10:37 ??Pathologist Performed at: ??-[facility] Dept. of Pathology, [place] [address] Tacker Off: Mahendra Turcios MD, FCAP, ??CLIA Certificate: [id number] SPECIMEN(S) SUBMITTED A - Placenta B - [...] formed cotyledons. Parenchyma: Boggy, purple-red. Sections/Processi ng: Securities Teller sections in 8 cassettes as follows: ?A1: ??Membrane roll ?A2: ??Proximal and distal cord ?A3-A8: ??Full thickness parenchyma, bisected B - Labeled/Fixative: ?? Bilateral fallopian tubes , formalin. Tissue Description: Intact, bilateral salpingectomy. . SPECIMEN PROCESSING Fallopian Tube 1: 12.0 x 0.9 cm, fimbriated. Fallopian Tube 2: 9.8 x 0.9 cm, fimbriated. Sections/Processi ng: Securities Teller sections in 4 cassettes as follows: ?B1: ??Fallopian tube 1 fimbria ?B2: ??Fallopian tube 1 cross sections ?B3: ??Fallopian tube 2 fimbria ?B4: ??Fallopian tube 2 cross sections ??ajw 04/19/2023 10:37 AM EDT [facility] TISSUE SPECIMEN FROM PLACENTA / Unknown 04/12/2023 5:52 PM EDT 04/12/2023 5:52 PM EDT False Vocal Cords, Bilateral 04/12/2023 5:52 PM EDT 04/12/2023 5:52 PM EDT Vicente Zhang MD PATHOLOGY/CYTOLOGY O RDERABLES Performing Organization Address City/[facility] Co de Phone Number [facility] [place] [address] [facility] [place] [address] * Group B Streptococcus Screen (04/12/2023 2:06 PM EDT) GBS Screen Neg [facility] Vaginal/Rectal 04/12/2023 2: 06 PM EDT 04/12/2023 3:32 PM EDT Comment:Penicillin Allergy?- >Yes Narrative Resulting Agency Comment Spec In Lab Vicente Zhang MD MICROBIOLOGY - GENER AL ORDERABLES Performing Organization Address City/[facility]/[place] [address] * Group B Strep Culture Screen (04/12/2023 2:06 PM EDT) Pathologist [facility] Group B Streptococcus Culture No Group B Streptococci isolated [facility] Vaginal/Rectal 04/12/2023 2: 06 PM EDT 04/12/2023 3:32 PM EDT Comment:Penicillin Allergy?- >Yes Narrative Resulting Agency Comment Spec In Lab Mary Headley MD MICROBIOLOGY - GENE RAL ORDERABLES Performing Organization Address City/[facility]/[place] [address] * Type and Screen Validity (04/12/2023 12:00 PM EDT) Pathologist [facility] T&S only valid at [facility] Comment:This Type and Screen result is only valid at the [facility] Hospital Blood 04/12/2023 12:0 0 PM EDT 04/12/2023 12:15 PM EDT Narrative Resulting Agency Comment Spec In Lab Vicente Zhang MD BLOOD BANK LAB ORDER SHABNAM Performing Organization Address [facility] [place] [address] * ABORH Recheck Status (04/12/2023 12:00 PM EDT) Pathologist [facility] ABORH Type Recheck Completed [facility] Blood 04/12/2023 12:0 0 PM EDT 04/12/2023 12:15 PM EDT Narrative Resulting Agency Comment Spec In Lab Vicente Zhang MD BLOOD BANK LAB ORDER SHABNAM Performing Organization Address [facility]/[place] [address] * (ABNORMAL) Differential, Automated (04/12/2023 12:00 PM EDT) Neutrophil % 72.7 % [facility] Neutrophil Absolute 7.47(H) 1.70 - 6.10 x10(3)/mc L [facility] Lymph % 19.0 % [facility] Lymphocytes Abs 2.0 0.9 - 3.2 x10(3)/ L [facility] Monocyte % 6.3 % [facility] Monocyte Abs 0.6 0.3 - 0.9 x10(3)/ L [facility] Eos % 0.5 % [facility] Eosinophils Abs 0.0 0.0 - 0.4 x10(3)/[facility] Basophil % 0.4 % [facility] Baso Absolute 0.0 0.0 - 0.1 x10(3)/ L [facility] Immature Gran % 1.10 % [facility] Comment: Immature granulocytes(IG's)percentage and absolute count will include metamyelocytes, myelocytes, and promyelocytes. Blood smears from CBCs yielding IG's will be scanned manually for concordance. If this scan disagrees with the automated IG or if promyelocytes are noted, a manual differential will be performed. Immature Gran Absolute 0.11(H) 0.00 - 0.04 x10(3)/ L [facility] Blood 04/12/2023 12:0 0 PM EDT 04/12/2023 12:17 PM EDT Narrative Resulting Agency Comment Spec In Lab Vicente Zhang MD HEMATOLOGY ORDERABLE S [facility] [place] [address] * (ABNORMAL) Hemogram (04/12/2023 12:00 PM EDT) White Blood Cell 10.3(H) 4.0 - 9.5 x10(3)/ L [facility] Red Blood Cell 3.85(L) 4.00 - 5.21 x10(6)/[facility] Hemoglobin 11.0(L) 11.7 - 15.5 g/dL [facility] Hematocrit 33.0(L) 35.7 - 45.8 % [facility] Mean Cell Volume 85.7 82.6 - 94.4 fL [facility] Mean Cell Hemoglobin 28.6 27.1 - 32.0 pg [facility] Mean Cell Hemoglobin Concentration 33.3 31.7 - 35.0 g/dL [facility] Platelet 137(L) 145 - 357 x10(3)/mc L [facility] RDW Standard Deviation 42.0 37.0 - 46.0 fL [facility] RDW coefficient of variation 13.6 11.5 - 14.1 % [facility] Mean Platelet Volume 12.7 7.6 - 12.9 fL [facility] NRBC% auto 0.0 % [facility] NRBC Absolute 0.000 0.000 - 0.000 x10(3)/mc L [facility] Blood 04/12/2023 12:0 0 PM EDT 04/12/2023 12:17 PM EDT Narrative Resulting Agency Comment Spec In Lab Vicente Zhang MD HEMATOLOGY ORDERABLE S Performing Organization Address City/[facility] Co de Phone Number [facility] [place] [address] * Antibody screen (04/12/2023 12:00 PM EDT) Ab Screen Interp Negative [facility] Expires at 2359 on: 04/15/2023 [facility] Blood 04/12/2023 12:0 0 PM EDT 04/12/2023 12:15 PM EDT Narrative Resulting Agency Comment Spec In Lab Vicente Zhang MD BLOOD BANK LAB ORDER SHABNAM Performing Organization Address City/[facility]/ZIP Co de Phone Number [facility] [place] [address] * ABO/Rh Typing (04/12/2023 12:00 PM EDT) ABORH Type A Pos [facility] Blood 04/12/2023 12:0 0 PM EDT 04/12/2023 12:15 PM EDT Narrative Resulting Agency Comment Spec In Lab Vicente Zhang MD BLOOD BANK LAB ORDER SHABNAM Performing Organization Address City/[facility]/[place] [address] documented in this encounter Visit Diagnoses Diagnosis [...] refused) 0900 (Not Given - Provider: Cathy E Gaskell, RN - Reason: Patient/family refused)1500 (Not Given [...] RN)1100 (Due)1549 (Given - Provider: Tessie Bettencourt, RODY) ketorolac (Toradol) (15 mg/mL) injection 15 mg (COMPLETED) 15 mg, Intravenous, EVERY 6 HOURS, 5 doses, First dose on Wed04/12/23 at 1845, Last dose on Wed04/13/23 at 1845, Routine 0116 (Given - Provider: Mary Malik, RODY)0652 (Given - Provider: Mary Malik, RN)1241 (Given - Provider: Cathy Sebastian, RODY)1909 (Given - Provider: Maricruz Juan RN) lidocaine [...] abdomen) 1000 (Patch Removed - Provider: Cathy Sebastian, RODY)2243 (Patch Applied - Provider: Mary Ellen Carrasco, [...] Sebastian RN) 0402 (Given - Provider: Clementine Mendoza, RODY) acetaminophen (Tylenol) tablet 975 mg 975 mg, [...] Tessie Bettencourt, RODY)1550 (Given - Provider: Tessie Bettencourt RN) oxyCODONE [...] 6-8, Routine 2314 (Given - Provider: Clementine Mendoza, RODY) 2243 (Given - Provider: Mary Ellen Carrasco, RODY) simethicone (Gas-X Chew) 80 mg chewable tablet 80 mg 80 mg, Oral, EVERY 6 HOURS PRN, Starting on Wed04/14/23 at 1745, Until Wed04/15/23 at 1816, Cramping, Routine 1830 (Given - Provider: Cathy Sebastian, RODY) Linked Groups Order Group 1: ibuprofen (Advil) [...] Routine documented in this encounter Care Teams Immigration Investigator Relationship Specialty Start Date End Date Analisa Martinez PA [address] [place] [address] PCP - General 11/30/22 documented as of this encounter
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
--- OUTSIDE RECORDS SUMMARY | 2024-07-13 17:43 | XMS_ITS | Encounter Summary ---
[place] [address] Care Team Providers Care Clarifier Operator Helper Name Role Phone Analisa Martinez Primary Care Provider [phone] Encounter Details Date Type Department Care Team (Late st Contact Info) Description 04/23/2023 Telephone Obstetrics [place] [address] Mery Braswell, RN Social History [...] for this as well. Routed note to [facility] on-call, Dr. Haas. documented in this encounter Plan of Treatment Not on file documented as of this encounter Visit Diagnoses Not on filedocumented in this encounter Care Teams Clarifier Operator Helper Relationship Specialty Start Date End Date Analisa Martinez PA [address] [place] [address] PCP - General 11/30/22 documented as of this encounter
--- OUTSIDE RECORDS SUMMARY | 2024-07-13 17:43 | XMS_ITS | Encounter Summary ---
Author Organization [facility] [place] [address] Care Team Providers Care Telegraph Editor Name Role Phone Analisa Martinez Primary Care Provider [phone] Encounter Details Date Type Department Care Team (Late st Contact Info) Description 04/23/2023 Orders Only Obstetrics [place] [address] Fide Haas MD [facility] OBSTETRICS [place] [address] Social History Tobacco Use Types Packs/Day Years [...] on filedocumented in this encounter Care Teams Telegraph Editor Relationship Specialty Start Date End Date Analisa Martinez PA [address] [place] [address] PCP - General 11/30/22 documented as of this encounter
--- OUTSIDE RECORDS SUMMARY | 2024-07-13 17:43 | XMS_ITS | Encounter Summary ---
Author Organization [facility] [place] [address] Care Team Providers Care Software Analyst Name Role Phone Analisa Martinez Primary Care Provider [phone] Encounter Details Date Type Department Care Team [...] on filedocumented in this encounter Care Teams Software Analyst Relationship Specialty Start Date End Date Analisa Martinez PA [address] [place] [address] PCP - General 11/30/22 documented as of this encounter
--- OUTSIDE RECORDS SUMMARY | 2024-07-13 17:43 | XMS_ITS | Encounter Summary ---
[place] [address] Care Team Providers Care Nutrition Services Worker Name Role Phone Analisa Martinez Primary Care Provider [phone] Encounter Details Date Type Department Care Team (Late st Contact Info) Description 04/29/2023 Telephone Obstetrics [place] [address] Macarena Priest RN Social History [...] pt, got VM for spouse. Will send [facility]. documented in this encounter Plan of Treatment Not on file documented as of this encounter Visit Diagnoses Not on filedocumented in this encounter Care Teams Nutrition Services Worker Relationship Specialty Start Date End Date Analisa Martinez PA [address] [place] [address] PCP - General 11/30/22 documented as of this encounter
--- OUTSIDE RECORDS SUMMARY | 2024-07-13 17:43 | XMS_ITS | Encounter Summary ---
Author Organization [facility] [place] [address] Care Team Providers Care Heavy Equipment Service Technician Name Role Phone Analisa Martinez Primary Care Provider [phone] Encounter Details Date Type Department Care Team (Late st Contact Info) Description 05/20/2023 Telephone Obstetrics [place] [address] Jody Arora Social History Tobacco [...] on filedocumented in this encounter Care Teams Heavy Equipment Service Technician Relationship Specialty Start Date End Date Analisa Martinez [place] [address] PCP - General 11/30/22 documented as of this encounter
--- OUTSIDE RECORDS SUMMARY | 2024-07-13 17:43 | XMS_ITS | Encounter Summary ---
Author Organization [facility] Address [facility] [place] [address] Care Team Providers Care Char Dust Cleaner And Salvager Name Role Phone Analisa Martinez Primary Care Provider [phone] Encounter Details Date Type Department Care Team [...] weight loss: -6% MATERNAL INFO: Isabel Julian [id number] G 4 P 3 Significant History: Previous experience: None--first-time Breast Surgery: No Breast Changes During : Yes Breast Exam : Size: X large Shape: Round Venous Pattern: Within Normal Limits Milk Production: Normal pumped over 500 ml in last 24 hours Full Firm Engorged Nipple Exam : Normal large in diameter Color: Spencer Compressible: Yes Trauma: no pain or trauma Nipple Care Management: deep asymmetric latch, Earth Mama nipple butter for pumping OBSERVATION: ASSESSMENT: Just came off of CPAP Oral [...] PATIENT EDUCATION AND RECOMMENDATIONS: Benefits of frequent maternal- Skin to Skin (STS) contact at early feeding cues every 2 - 3 hours, awaken as needed Discussed that it is likelyto take Annia a couple of weeks to get to full oral feedings. Encouraged parents to work on first before introducing a bottle Optimal positioning: Aavq-tj-pqoaax positioning Dnfy-yc-xxbkd technique Nutritive vs non-nutritive sucking Breast massage and manual expression techniques Breast massage during , alternated with breast compression during pauses Alternative stimulation techniques/waking techniques/consoling techniques Strategies to manage physiological engorgement On-going Concerns: Inexperienced BF mom Inadequate latch today, just got off CPAP Delayed adequate feeding Late Infant at 36 6/7 weeks, just off of CPAP Monitor infant growth and nutrition closely Planning: --Feeding Plan: [...] education and recommendations. ,Analisa Shepard RN IBCLC [facility] Services documented in this encounter Plan of Treatment Not on file documented as of this encounter Visit Diagnoses Not on filedocumented in this encounter Care Teams Char Dust Cleaner And Salvager Relationship Specialty Start Date End Date Analisa Martinez PA [address] [place] [address] PCP - General 11/30/22 documented as of this encounter
--- OUTSIDE RECORDS SUMMARY | 2024-07-13 17:43 | XMS_ITS | Encounter Summary ---
Author Organization [facility] Address [facility] [place] [address] Care Team Providers Care Environmental Control Administrator Name Role Phone Analisa Martinez Primary Care Provider [phone] Encounter Details Date Type Department Care Team [...] education provided. will continue to follow. Deanna Estrada RN IBCLC [facility] Services will continue to follow. documented in this encounter Plan of Treatment Not on file documented as of this encounter Visit Diagnoses Not on filedocumented in this encounter Care Teams Environmental Control Administrator Relationship Specialty Start Date End Date Analisa Martinez PA [address] [place] [address] PCP - General 11/30/22 documented as of this encounter
--- OUTSIDE RECORDS SUMMARY | 2024-07-13 17:43 | XMS_ITS | Encounter Summary ---
Author Organization [facility] Address [facility] [address] Care Team Providers Care Customer Success Advocate Name Role Phone Analisa Martinez Primary Care Provider [phone] Encounter Details Date Type Department Care Team (Late st Contact Info) Description 03/18/2023 11:59 PM EDT Anesthesia Event [place] [address] Tami Jaramillo MD [facility] [place] [address] Anesthesia Record Procedure Summary Procedure Name Responsible [...] note were not included. Pre-Anesthesia Evaluation for: Isaebl fan 27 y.o. female. Procedure(s): @ DELIVERY [...] on filedocumented in this encounter Care Teams Customer Success Advocate Relationship Specialty Start Date End Date Analisa Martinez PA [address] [place] [address] PCP - General 11/30/22 documented as of this encounter
--- OUTSIDE RECORDS SUMMARY | 2024-07-13 17:43 | XMS_ITS | Encounter Summary ---
Author Organization [place] [address] Care Team Providers Care Weight Engineer Name Role Phone Analisa Martinez Primary Care Provider [phone] Encounter Details Date Type Department Care Team (Late st Contact Info) Description 04/24/2023 Telephone Obstetrics [place] [address] Vicente Zhang MD [facility] OBSTETRICS & [place] [address] Social History Tobacco Use Types Packs/Day Years [...] 04/24/2023 9:18 AM EDT Telephone Phone Note Isabel is a 27yo now POD#12 from an [...] continued monitoring over the next 12 hours. [facility] triage for evaluation. ground host/hostess updated. Vicente Zhang MD, PGY3 Obstetrics and Gynecology 04/24/2023 documented in this encounter Plan of Treatment Not on file documented as of this encounter Visit Diagnoses Not on filedocumented in this encounter Care Teams Weight Engineer Relationship Specialty Start Date End [place] [place] [address] PCP - General 11/30/22 documented as of this encounter
--- OUTSIDE RECORDS SUMMARY | 2024-07-13 17:43 | XMS_ITS | Encounter Summary ---
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 I reviewed resources available here at [facility] if she is ever feeling like she cannot manage things, pt verbalizedunderstanding. No questions at this time. documented in this encounter Plan of Treatment Not on file documented as of this encounter Visit Diagnoses Not on filedocumented in this encounter Care Teams Metal Cutter Relationship Specialty Start Date End Date Analisa Martinez PA [address] [place] [address] PCP - General 11/30/22 documented as of this encounter
--- OUTSIDE RECORDS SUMMARY | 2024-07-13 17:43 | XMS_ITS | Encounter Summary ---
Author Organization [facility] Address [facility] [place] [address] Care Team Providers Care Terminal Carman Name Role Phone Analisa Martinez Primary Care Provider [phone] Reason for Visit * Reason Comments Follow-up Encounter Details Date Type Department Care Team (Late st Contact Info) Description 05/05/2023 10:00 AM EDT Office Visit Obstetrics [place] [address] Sophie Scanlon MD [facility] [address] [place] [address] Separation of wound with drainage, (Primary Dx); Surgical wound infection Social History Tobacco Use Types Packs/Day Years Used Date Smoking Tobacco: Every Day Cigarettes Smokeless Tobacco: Never Comments:Cut back from 2 pac ks Alcohol Use Standard Drinks/Week Comments Not Currently 0 (1 standard drink = 0.6 oz pur e alcohol) [facility] Inpatient Questions Answer Date Recorded Does Anyone [...] performed by Mary Headley MD at [facility] PRO LIGATE FALLOPIAN TUBE, N/A 04/12/2023 @FALLOPIAN TUBE(S), TRANSECTION OR LIGATION, ABD APPROACH, POST- (WRVU 5.28) performed by Mary Headley MD at [facility] Family History Problem Relation Age [...] hours. 60 tablet 0 vitamin 27 & bfvpdco-zdtu-TP 60 mg iron-1 mg Tablet Take 1 [...] infection documented in this encounter Care Teams Terminal Carman Relationship Specialty Start Date End Date Analisa Martinez PA [address] [place] [address] PCP - General 11/30/22 documented as of this encounter
--- OUTSIDE RECORDS SUMMARY | 2024-07-13 17:43 | XMS_ITS | Encounter Summary ---
Author Organization [facility] Address [facility] [place] [address] Care Team Providers Care Tile Designer Name Role Phone Analisa Martinez Primary Care Provider [phone] Encounter Details Date Type Department Care Team [...] on filedocumented in this encounter Care Teams Tile Designer Relationship Specialty Start Date End Date Analisa [place] [address] PCP - General 11/30/22 documented as of this encounter
--- OUTSIDE RECORDS SUMMARY | 2024-07-13 17:43 | XMS_ITS | Encounter Summary ---
Author Organization [facility] [place] [address] Care Team Providers Care Metallographer Name Role Phone Analisa Martinez Primary Care Provider [phone] Reason for Visit * Auth/Cert (Routine) Specialty Diagnoses / Procedures Referred By Contac t Referred To Contact Diagnoses prrior with window Procedures PRO DELIVERY ONLY ER OBSVO Sujata Prater MD [facility] OBSTETRICS [place] [address] [facility] Referral ID Status Reason Start Date Expiration Date Visits Re quested Visits Authorized [id number] 1 1 Encounter Details Date Type Department Care Team (Latest Contact Info) Description 03/18/2023 12:01 AM EDT - 03/18/2023 10:57 AM EDT [place] [phone] Samuel Barron MD [facility] OBSTETRICS [place] [address] Discharge Disposition: Home Social History Tobacco Use [...] Isabel Julian Patient Age: 27 y.o. Language: Cook Islander Race: White Ethnicity: Not nor Admit date: 03/18/2023 Discharge date and time: 03/18/2023 Attending Physician: Dr. Samuel Barron Discharge Physician: Dr. Nitza Murguia Follow-up Recommendations for Providers: - Betamethasone #2 to be administered 03/19 at [facility] - Next visit with Dr. Murguia 03/22/23 Inpatient Provider Contact Information: [facility] Maternal- Medicine, Care Provider: [facility] Referring Provider if applicable: N/A [...] to counseling to present to care if mray due to risk for uterine rupture, she called and came to [facility] (lives ~1 hour away). Here she continues [...] to get second dose of Betamethasone at [facility]. Tocolytics Received if applicable: None Date Steroid [...] as: Protonix Refills: 0 vitamin 27 & kwjfyqs-dtcx-HW 60 mg iron-1 mg Tablet Take 1 tablet by mouth daily. 1 tablet Refills: 0 Smoking Status at Discharge: Social History Tobacco Use Smoking Status Every Day Packs/day: 0.50 Types: Cigarettes Smokeless Tobacco Never Tobacco Comments Cut back from 2 packs Instructions Given to Patient at Discharge: There are no outpatient Patient Instructions on file for this admission. General Instructions [facility] to contact OB doctor [facility] to contact 1 [place] [address] to contact family doctor Following your visit to [facility] Triage ??N?DL?TL?? Reason for Visit: Provider: GESTATION - Less Than 37 Weeks Call your provider if: You are feeling any cramping sensations in your abdomen less than 20 minutes apart [place] Contractions usually are irregular may get less [...] a vaginal exam in your doctor's or 2 year olds preschool teacher's office you should not bleed as much [...] dehydration Keep your regularly scheduled doctor or 2 year olds preschool teacher appointment NEW MEDICATIONS: SPECIAL INSTRUCTIONS/FOLLOW-UP CARE: Future Appointments and Orders Future Appointments and Orders Future Appointments Provider Department Dept Phone 03/22/2023 4:00 PM Nitza Murguia MD Obstetrics and Gynecology at [facility] Arrive at: Radiology Director Area 04/07/2023 4:00 PM Casey Armendariz MD Obstetrics and Gynecology at [facility] Arrive at: Radiology Director Area [phone] Discharge References/Attachments None documented in this encounter Discharge Instructions * Discharge Instructions* Tejal Miles RN - 03/18/2023 10:15 AM EDT [facility]ram Ram[facility]rez to contact OB doctor [facility] [address] to contact 2 year olds preschool teacher [place] to contact family doctor [facility] Triage ??N?DL?TL?? Reason for Visit: Provider: GESTATION - Less Than 37 Weeks Call your provider if: You are feeling any cramping sensations in your abdomen less than 20 minutes apart [place] Contractions usually are irregular may get less [...] a vaginal exam in your doctor's or 2 year olds preschool teacher's office you should not bleed as much [...] dehydration Keep your regularly scheduled doctor or 2 year olds preschool teacher appointment NEW MEDICATIONS: SPECIAL INSTRUCTIONS/FOLLOW-UP CARE: documented [...] by mouth daily. 05/24/2023 vitamin 27 & ycoawfe-wapz-FB 60 mg iron-1 mg Tablet Take 1 [...] plans to get BMZ #2 tomorrow at [facility], confirmed by Dr. Prater - 36w rCD [...] discharge today Second dose of betamethasone locally [facility] planned 36-37 weeks Nitza Murguia MD * [...] uterine rupture, she called and came to [facility] (lives ~1 hour away). Here she continues [...] mg by mouth daily. vitamin 27 & adtkcxo-raoi-GA 60 mg iron-1 mg Tablet Take 1 [...] 130, Variability: moderate, Accels: yes, Decels: none, [place]: q2-3 Category: I Record Review Labs Lab [...] transportation insecurity, Fide Mc is current ride [phone] -Consents obtained: CS with BS, federal consent 11/30/22, opioids - Hemorrhage Risk: High This patient was seen and discussed with Dr. Barron, Attending PROCEDURE ANALYST. 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 at 32w5d weeks gestation. She has been admitted secondary to threatened labor in the setting of 1.2mm lower uterine segment with Hx x2. Per conversation with WIND TURBINE ELECTRICAL ENGINEER, she will be meeting with patient to offer support and will complete Initial Assessment for patient. RNCM will remain available throughout patient's admission to assist with any discharge planning needs. Charlotte Chatterjee RN Case Manager [facility] and covering for Pedi/PICU/ICN [phone] Pager [phone] * Consult Note - Jose Mcdonald MD [...] 32 weeks gestation and admitted to the [facility] due to labor in setting of thin [...] the general care and management of an born at 32 weeks gestation, including RDS, [...] EDT) Glucose, Urine Dipstick Negative Negative mg/dL [facility] Protein, Urine Dipstick Negative Negative mg/dL [facility] Bilirubin, Urine Dipstick Negative Negative mg/dL [facility] Comment: Clinical correlation required for positive Urine Bilirubin results as false positive may occur with some drugs and drug related products. If a false positive is suspected a serum total bilirubin should be considered if clinically indicated. Urobilinogen, Urine Dipstick Normal Normal mg/dL [facility] pH, Urn (dipstick) 7.0 5.0 - 8.0 [facility] Blood, Urine Dipstick Negative Negative mg/dL [facility] Ketone, Urine Dipstick 15(A) Negative mg/dL [facility] Nitrite, Urine Dipstick Negative Negative [facility] Leukocytes, Urine Dipstick Negative Negative mcL [facility] Appearance, Urine Dipstick Clear Clear [facility] Specific [place] Urine Automated 1.008 1.005 - 1.030 [facility] Color, Urine Dipstick Yellow Yellow [facility] Reflex to Culture No [facility] Clean Catch Urine 03/18/2023 2:35 AM EDT 03/18/2023 2:45 AM EDT Narrative Resulting Agency Comment Spec In Lab Samuel Barron MD URINE ORDERABLES Performing Organization Address [facility] Co de Phone Number [facility] [place] [address] * Type and Screen Validity (03/18/2023 1:50 AM EDT) T&S only valid at [facility]ORATORY Comment:This Type and Screen result is only valid at the [facility] Blood 03/18/2023 1:50 AM EDT 03/18/2023 2:06 AM EDT Narrative Resulting Agency Comment Spec In Lab Lyric Garber DO BLOOD BANK LAB ORDER SHABNAM Performing Organization Address City/[facility]/[place] [address] * ABORH Recheck Status (03/18/2023 1:50 AM EDT) ABORH Type Recheck Completed [facility] Blood 03/18/2023 1:50 AM EDT 03/18/2023 2:06 AM EDT Narrative Resulting Agency Comment Spec In Lab Lyric Garber DO BLOOD BANK [place] [address] * (ABNORMAL) Differential, Automated (03/18/2023 1:50 AM EDT) Neutrophil % 65.0 % [facility] Neutrophil Absolute 7.31(H) 1.70 - 6.10 x10(3)/mc L [facility] Lymph % 24.9 % [facility] Lymphocytes Abs 2.8 0.9 - 3.2 x10(3)/mc L [facility] Monocyte % 7.6 % [facility] Monocyte Abs 0.9 0.3 - 0.9 x10(3)/mc L [facility] Eos % 0.6 % [facility] Eosinophils Abs 0.1 0.0 - 0.4 x10(3)/mc L [facility] Basophil % 0.4 % [facility] Baso Absolute 0.0 0.0 - 0.1 x10(3)/mc L [facility] Immature Gran % 1.50 % [facility] Comment: Immature granulocytes(IG's)percentage and absolute count will include metamyelocytes, myelocytes, and promyelocytes. Blood smears from CBCs yielding IG's will be scanned manually for concordance. If this scan disagrees with the automated IG or if promyelocytes are noted, a manual differential will be performed. Immature Gran Absolute 0.17(H) 0.00 - 0.04 x10(3)/mc L [facility] Blood 03/18/2023 1:50 AM EDT 03/18/2023 2:10 AM EDT Narrative Resulting Agency Comment Spec In Lab Lyric Garber DO HEMATOLOGY ORDERABLE S [facility] [place] [address] * (ABNORMAL) Hemogram (03/18/2023 1:50 AM EDT) White Blood Cell 11.3(H) 4.0 - 9.5 x10(3)/mc L [facility] Red Blood Cell 3.77(L) 4.00 - 5.21 x10(6)/mc L [facility] Hemoglobin 11.3(L) 11.7 - 15.5 g/dL [facility] Hematocrit 32.9(L) 35.7 - 45.8 % [facility] Mean Cell Volume 87.3 82.6 - 94.4 fL [facility] Mean Cell Hemoglobin 30.0 27.1 - 32.0 pg [facility] Mean Cell Hemoglobin Concentration 34.3 31.7 - 35.0 g/dL [facility] Platelet 130(L) 145 - 357 x10(3)/mc L [facility] RDW Standard Deviation 40.3 37.0 - 46.0 fL [facility] RDW coefficient of variation 12.8 11.5 - 14.1 % [facility] Mean Platelet Volume 13.0(H) 7.6 - 12.9 fL [facility] NRBC% auto 0.0 % [facility] NRBC Absolute 0.000 0.000 - 0.000 x10(3)/ L [facility] Blood 03/18/2023 1:50 AM EDT 03/18/2023 2:10 AM EDT Narrative Resulting Agency Comment Spec In Lab Lyric Garber DO HEMATOLOGY ORDERABLE S [facility] [place] [address] * Antibody screen (03/18/2023 1:50 AM EDT) Ab Screen Interp Negative [facility] Expires at 2359 on: 03/21/2023 [facility] Blood 03/18/2023 1:50 AM EDT 03/18/2023 2:06 AM EDT Narrative Resulting Agency Comment Spec In Lab Lyric Garber DO BLOOD BANK LAB ORDER SHABNAM [facility] [place] [address] * ABO/Rh Typing (03/18/2023 1:50 AM EDT) ABORH Type A Pos [facility] Blood 03/18/2023 1:50 AM EDT 03/18/2023 2:06 AM EDT Narrative Resulting Agency Comment Spec In Lab Lyric Garber DO BLOOD BANK LAB ORDER SHABNAM Performing Organization Address City/[facility] [place] [address] documented in this encounter Visit Diagnoses Diagnosis [...] 1 dose, On Wed03/18/23 at 0145 0141 ([facility] Bag - Prov ider: Mary Malik RN) [...] Routine documented in this encounter Care Teams Metallographer Relationship Specialty Start Date End Date Analisa Martinez PA [address] [place] [address] PCP - General 11/30/22 documented as of this encounter
--- OUTSIDE RECORDS SUMMARY | 2024-07-13 17:43 | XMS_ITS | Encounter Summary ---
Author Organization [facility] Address [facility] [place] [address] Care Team Providers Care Joint Sealer Name Role Phone Analisa Martinez Primary Care Provider [phone] Reason for Visit * Reason Comments Follow-up incision c heck, s/p 04/12/23 with tubal Encounter Details Date Type Department Care Team (Late st Contact Info) Description 04/28/2023 2:00 PM EDT Office Visit Obstetrics [place] [address] Sophie Scanlon MD [facility] DR OBSTETRICS [place] [address] Separation of wound with drainage, (Primary Dx); Surgical wound infection; H/O section Social History Tobacco Use Types Packs/Day Years Used Date Smoking Tobacco: Every Day Cigarettes Smokeless Tobacco: Never Comments:Cut back from 2 pac ks Alcohol Use Standard Drinks/Week Comments Not Currently 0 (1 standard drink = 0.6 oz pur e alcohol) [facility] Inpatient Questions Answer Date Recorded Does Anyone [...] seen four [facility] after noting draining from her incision. She [...] 16.13) performed by Mary Headley MD at [facility] PRO LIGATE FALLOPIAN TUBE, N/A 04/12/2023 @FALLOPIAN TUBE(S), TRANSECTION OR LIGATION, ABD APPROACH, POST- (WRVU 5.28) performed by [facility] Head[facility] Family History Problem Relation Age of Onset [...] mg by mouth daily. vitamin 27 & iamtepx-moqj-KI 60 mg iron-1 mg Tablet Take 1 [...] No erythema, warmth or pus. Assessment/Plan: Isabel Juilan is a 27 y.o. POD#16 s/p section [...] status documented in this encounter Care Teams Joint Sealer Relationship Specialty Start Date End Date Analisa Martinez PA [address] [place] [address] PCP - General 11/30/22 documented as of this encounter
--- OUTSIDE RECORDS SUMMARY | 2024-07-13 17:43 | XMS_ITS | Encounter Summary ---
[place] [address] Care Team Providers Care Crab Fisher Name Role Phone Analisa Martinez Primary Care Provider [phone] Encounter Details Date Type Department Care Team (Latest Contact Info) Description 04/20/2023 2:30 PM EDT Clinical Support Obstetrics [place] [address] H/O section Social History Tobacco [...] status documented in this encounter Care Teams Crab Fisher Relationship Specialty Start Date End Date Analisa [place] [address] PCP - General 11/30/22 documented as of this encounter
--- OUTSIDE RECORDS SUMMARY | 2024-07-13 17:43 | XMS_ITS | Encounter Summary ---
Author [place] [address] Care Team Providers Care Drum Saw Operator Name Role Phone Analisa Martinez Primary Care Provider [phone] Reason for Visit * Auth/Cert (Routine) Specialty Diagnoses / Procedures Referred By Contac t Referred To Contact Diagnoses prrior with window Procedures PRO DELIVERY ONLY ER OBSVO Sujata Prater MD [facility] DR OBSTETRICS [place] [address] [facility] Referral ID Status Reason Start Date Expiration Date Visits Re quested Visits Authorized [id number] 1 1 Encounter Details Date Type Department Care Team (Late st Contact Info) Description 04/12/2023 3:14 PM EDT Anesthesia [place] [address] Reyna Ureña MD [facility] [place] [address] Anesthesia Record Procedure Summary Procedure Name Responsible [...] cephalic vein (lateral side of arm), left; yssy-xxm-rtwnfo catheter system; Anatomical Landmarks; 20 gauge, 1 in length; John Christensen RN VAS; distraction, tolerated well; 04/15/23; 1018 04/12/23 1215 by Myah Christensen RN 04/15/23 1018 by Tessie Hernandez, RN (RETIRED) Peripheral IV Line - Single Lumen 04/12/23; 1234; basilic vein (medial side of arm), left; xsak-fmo-wthhma catheter system; Anatomical Landmarks; 20 gauge, 1 [...] Procedure Summary Date: 04/12/23 Room / Location: [facility] OR [address] [place] [address] [facility] Anesthesia Start: 1514 Anesthesia Stop: [...] All Anesthesia Providers: Anesthesiologist: Reyna Ureña MD Comic Book Writer: Rupert Chavez MD; Seamus Hernandez MD Vitals [...] legs shortly after spinal injection. Performed by: Resident/METAL SPRAYER PRODUCTION: Rupert Chavez MD Authorized by: Reyna Ureña MD ~~~~~~~~~~~~~~~~~~~~~~~~~~~~~~~~~~~~~~~~~~~~~~~~~~~~~~~~~~~~ * Anesthesia Preprocedure Evaluation - Reyna Ureña MD - 04/12/2023 7:21 AM EDT Pre-Anesthesia Evaluation for: Isabel Julian a 27 y.o. female. Procedure(s): @ [facility] Patient Active Problem List Diagnosis [...] & PLAN: Spinal, PIV Rupert Chavez MD Comic Book Writer, PGY3/CA2 Pager # [phone] Region - Informed Consent: Anesthetic plan and [...] shortly after spinal injection. Performed by: ?? Resident/METAL SPRAYER PRODUCTION: ? Rupert Chavez MD Authorized by: Reyna Ureña MD ~~~~~~~~~~~~~~~~~~~~~~~~~~~~~~~~~~~~~~~~~~~~~~~~~~~~~~~~~~~~ Reyna Ureña MD SALES MANAGER [employer] [facility] documented in this encounter Visit Diagnoses [...] mg documented in this encounter Care Teams Drum Saw Operator Relationship Specialty Start Date End Date Analisa [place] [address] PCP - General 11/30/22 documented as of this encounter
--- OUTSIDE RECORDS SUMMARY | 2024-07-13 17:43 | XMS_ITS | Encounter Summary ---
Author Organization [facility] Address [facility] [address] Care Team Providers Care Tag Writer Name Role Phone Analisa Martinez Primary Care Provider [phone] Encounter Details Date Type Department Care Team (Late st Contact Info) Description 04/07/2023 4:00 PM EDT Routine Obstetrics [place] [address] Casey Armendariz MD [facility] [address] OBST[place] [address] GA: [id number] Social History Tobacco Use Types [...] Uc's and was going to present to [facility], but was unable to travel here due [...] disorders documented in this encounter Care Teams Tag Writer Relationship Specialty Start Date End Date Analisa Martinez PA [address] [place] [address] PCP - General 11/30/22 documented as of this encounter
--- OUTSIDE RECORDS SUMMARY | 2024-07-13 17:43 | XMS_ITS | Encounter Summary ---
[place] [address] Care Team Providers Care Stone Cutter Name Role Phone Analisa Martinez Primary Care Provider [phone] Encounter Details Date Type Department Care Team (Late st Contact Info) Description 03/18/2023 Telephone Obstetrics [place] [phone] Loida Hall RN Social History Tobacco Use [...] on filedocumented in this encounter Care Teams Stone Cutter Relationship Specialty Start Date End Date Analisa Martinez PA [address] [place] [address] PCP - General 11/30/22 documented as of this encounter
--- OUTSIDE RECORDS SUMMARY | 2024-07-13 17:44 | XMS_ITS | Encounter Summary ---
Author Organization [facility] Address [facility] [place] [address] Care Team Providers Care Comprehensive Advisor Name Role Phone Analisa Martinez Primary Care Provider [phone] Encounter Details Date Type Department Care Team (Latest Contact Info) Description 11/30/2022 3:00 PM EST - 11/30/2022 11:59 PM [facility] Hospital [place] [address] Rosa Santiago MD [facility] OBSTETR[place] [address] Back pain affecting in second trimester Discharge [...] by mouth daily. 05/24/2023 vitamin 27 & twsktob-lpyd-LY 60 mg iron-1 mg Tablet Take 1 [...] who have questions, please contact the health palliative care physician that requested your imaging first. ? Nitza Murguia, Charge Poster Electronically Signed Corrected Final Report ??11/30/2022 05:04 pm Narrative 11/30/2022 3:52 PM EST OBSTETRICS REPORT ? (Corrected Final 11/30/2022 05:04 pm) PATIENT INFO: ID #: ? [id number] ?: ??[birth year] (27 yrs)(F) Name: ? DENISE YOUNG ? Visit Date: 11/30/2022 03:34 pm PERFORMED BY: Performed By: ? Lima Cummins RDMS Attending: ?Shantal MENESES, Nitza Whittington Referred By: ?ROSA SANTIAGO Location: ? [place] SERVICE(S) PROVIDED: UOBLIM - Transabdominal - Maria - [id number] INDICATIONS: 17 weeks gestation of ?Z3A.17 15 [...] 11/30/2022 05:04 pm) PATIENT INFO: ID #: [id number] : [birth year] (27 yrs)(F) Name: DENISE JULIAN Visit Date: 11/30/2022 03:34 pm PERFORMED BY: Performed By: Lima Cummins RDMS Attending: Nitza Murguia MD Referred By: ROSA SANTIAGO Location: [place] SERVICE(S) PROVIDED: UOBLIM - Transabdominal - aMria - [id number] INDICATIONS: 17 weeks gestation of Z3A.17 15 [...] who have questions, please contact the health palliative care physician that requested your imaging first. Nitza Murguia, Charge Poster Electronically Signed Corrected Final Report 11/30/2022 05:04 pm Rosa Santiago MD IMG US OB ORDERABL ES documented in this encounter Visit Diagnoses Diagnosis Back pain affecting in second trimester documented in this encounter Care Teams Comprehensive Advisor Relationship Specialty Start Date End Date Analisa Martinez PA [address] [place] [address] PCP - General 11/30/22 documented as of this encounter
--- OUTSIDE RECORDS SUMMARY | 2024-07-13 17:44 | XMS_ITS | Encounter Summary ---
[place] [address] Care Team Providers Care Senior Net C Developer Name Role Phone Analisa Martinez Primary Care Provider [phone] Encounter Details Date Type Department Care Team (Late st Contact Info) Description 02/16/2023 External Results Obstetrics [place] [phone] Macarena Priest, RN Social History Tobacco Use [...] on filedocumented in this encounter Care Teams Senior Net C Developer Relationship Specialty Start Date End Date Analisa Martinez PA [address] [place] [address] PCP - General 11/30/22 documented as of this encounter
--- OUTSIDE RECORDS SUMMARY | 2024-07-13 17:44 | XMS_ITS | Encounter Summary ---
Author Organization [facility] Address [address] [place] [address] Care Team Providers Care Content Publisher Name Role Phone Joanna Alcaraz NP Primary Care Provider [phone] Encounter Details Date Type Department Care Team (Late st Contact Info) Description 10/31/2020 Lab Requisition [facility] Pathology & Laboratory Medicine - [facility] [address], [place] [address] Outr Resulting Lab, Provider Social History Tobacco [...] Outr Resulting Lab MICROBIOLOGY - GENERAL ORDERABLES [facility] [address] [place] [address] * COVID-19 TESTING (10/31/2020 16:45 EST) COVID-19 rt-PCR Result Negative Negative 11/01/2020 18:17 EST [facility] Comment: This test [...] developed and its performance characteristics determined by [facility]. It has not been cleared or approved [...] testing. This test is based on the [facility] COVID-19 Emergency Use Authorization (EUA) assay, with minor modification as defined by the FDA Performed on the Applied DTVCasto 7 Flex RT-PCR System. Performing Lab [facility] Lab 11/01/2020 18:17 EST [facility] Swab 10/31/2020 16:4 5 EST 10/31/2020 21:01 EST Provider Outr Resulting Lab MICROBIOLOGY - GENERAL ORDERABLES [facility] [address] [place] [address] documented in this encounter Visit Diagnoses Not on filedocumented in this encounter Care Teams Content Publisher Relationship Specialty Start Date End Date Joanna Alcaraz NP [address] [place] [phone] PCP - General 08/23/19 documented as of this encounter
--- OUTSIDE RECORDS SUMMARY | 2024-07-13 17:44 | XMS_ITS | Encounter Summary ---
Author Organization [facility] Address [address] [place] [address] Care Team Providers Care Sugar Chipper Machine Operator Name Role Phone Nolberto Tranmeng WILKERSON Primary Care Provider [phone] Encounter Details Date Type Department Care Team (Late st Contact Info) Description 02/01/2017 Results Only [facility] Family Medicine - [place] [address], [place] [address] Analisa Elkins CNM [address] [place] [address] Social History Tobacco Use Types Packs/Day Years [...] Procedure Name Priority Date/Time Associated Diagnosis Comments CARE HOME DETAILED 02/01/2017 15:41 EDT documented in this encounter Results * CARE HOME DETAILED (02/01/2017 15:41 EDT) Anatomical Region Laterality [...] ?2,127 g 17% Lazcano Calculated by: Hadlock ([id number]) EFW (lb) ?? 4 lb EFW (oz) ?? 11 oz Cephalic index 0.79 ?34% Nicolaides HC / AC ?1.04 FL / BPD ?? 0.82 FL / AC ?0.24 MVP ?5.3 cm AMILCAR ?14.9 cm FHR ?148 bpm Head / Face / Neck Feed Research Technician 3.9 mm Extremities / Bony Struc Radius [...] normal IVC: ?? normal 3-vessel view: normal 1-ppflwb-uzbcqlb view: normal Rt lung: ?? normal Lt [...] habitus and by advanced gestational age. Impression [id number] Obstetrical ultrasound with and maternal evaluation, including [...] There is trunk and extremity movement noted. [address] Umbilical artery Doppler study Doppler waveforms of [...] 2,127 g 17% Lazcano Calculated by: Hadlock ([id number]) EFW (lb) 4 lb EFW (oz) 11 oz Cephalic index 0.79 34% Nicolaides HC / AC 1.04 FL / BPD 0.82 FL / AC 0.24 MVP 5.3 cm AMILCAR 14.9 cm FHR 148 bpm Head / Face / Neck Feed Research Technician 3.9 mm Extremities / Bony Struc Radius [...] SVC: normal IVC: normal 3-vessel view: normal 5-bxpylm-vsxaajc view: normal Rt lung: normal Lt lung: [...] habitus and by advanced gestational age. Impression [address] Obstetrical ultrasound with and maternal evaluation, including [...] There is trunk and extremity movement [place]. [address] Umbilical artery Doppler study Doppler waveforms of the umbilical artery are normal. Given the EFW appears > 10%, the biometry is symmetric, the fluid and Dopplers are normal, there is no evidence of poor growth or placental insufficiency at this time. Follow-up Follow-up as clinically indicated. Analisa Elkins ANAYA IMG US CARE HOME ORDERABLE S documented in this encounter Visit Diagnoses Not on filedocumented in this encounter Care Teams Sugar Chipper Machine Operator Relationship Specialty Start Date End Date Noris Tran RPA-C [address] [place] [address] PCP - General 03/06/13 08/22/19 documented as of this encounter
--- OUTSIDE RECORDS SUMMARY | 2024-07-13 17:44 | XMS_ITS | Encounter Summary ---
Author Organization [facility] Address [address] [place] [address] Care Team Providers Care Binder And Box Builder Name Role Phone Joanna Alcaraz NP Primary Care Provider [phone] Encounter Details Date Type Department Care Team (Late st Contact Info) Description 10/29/2022 Lab Requisition [facility] Pathology & Laboratory Medicine - [facility] [address], [place] [address] Outr Resulting Lab, Provider Social History Tobacco [...] Ab Positive See Note 10/30/2022 10:13 EST [facility] Comment:Presence of detectab le Varicella Zoster virus IgG antibodies. Blood VENOUS BLOOD / Unknown 10/29/2022 10:23 EST 10/29/2022 17:12 EST Provider Outr Resulting Lab IMMUNOLOGY A ND SEROLOGY ORDERABLES [facility] [address] [place] [address] * RUBELLA IGG ANTIBODY (10/29/2022 10:23 EST) Rubella IgG Ab Positive See Note 10/30/2022 10:14 EST [facility] Comment:Positive for IgG ant ibodies to Rubella virus. Blood VENOUS BLOOD / Unknown 10/29/2022 10:23 EST 10/29/2022 17:12 EST Provider Outr Resulting Lab CHEMISTRY & BLOOD GAS ORDERABLES [facility] [address] [place] [address] documented in this encounter Visit Diagnoses Not on filedocumented in this encounter Care Teams Binder And Box Builder Relationship Specialty Start Date End Date Joanna Alcaraz NP [address] [place] [phone] PCP - General 08/23/19 documented as of this encounter
--- OUTSIDE RECORDS SUMMARY | 2024-07-13 17:44 | XMS_ITS | Encounter Summary ---
[place] [address] Care Team Providers Care Outside Sales Account Manager Name Role Phone Melody Koenig MD Primary Care Provider [phone] Encounter Details Date Type Department Care Team (Late st Contact Info) Description 11/26/2022 Telephone Obstetrics [place] [address] Macarena Priest RN Social History [...] 11/26/2022 1:02 PM EST Isabel Julian 15w0d [facility] pt Reason for call: pelvic pain [...] to the pain. She was seen at [facility] today and she is very disappointed in their care, they basically told me to take a Tylenol and suck it up - I am furious and will not be going back there. I stated I would forward this note to Dr Haas, the consulting group analyst MFM. I explained that Dr Haas may [...] on filedocumented in this encounter Care Teams Outside Sales Account Manager Relationship Specialty Start Date End Date Melody Koenig MD [address] [place] [address] PCP - General Family Medicine 10/30/22 11/29/22 documented as of this encounter
--- OUTSIDE RECORDS SUMMARY | 2024-07-13 17:44 | XMS_ITS | Encounter Summary ---
[facility] [place] [address] Care Team Providers Care Rn Case Management Name Role Phone Analisa Martinez Primary Care Provider [phone] Encounter Details Date Type Department Care Team (Late st Contact Info) Description 02/16/2023 Orders Only Obstetrics [place] [address] Nitza Murguia MD [facility] OBSTETRICS [place] [address] Elevated glucose tolerance test (Primary Dx) Social [...] test documented in this encounter Care Teams Rn Case Management Relationship Specialty Start Date End Date Analisa Martinez PA [address] [place] [address] PCP - General 11/30/22 documented as of this encounter
--- OUTSIDE RECORDS SUMMARY | 2024-07-13 17:44 | XMS_ITS | Encounter Summary ---
Author Organization [facility] Address [facility] [place] [address] Care Team Providers Care Kicking Machine Operator Name Role Phone Analisa Martinez Primary Care Provider [phone] Encounter Details Date Type Department Care Team [...] on filedocumented in this encounter Care Teams Kicking Machine Operator Relationship Specialty Start Date End Date [place] [address] PCP - General 11/30/22 documented as of this encounter
--- OUTSIDE RECORDS SUMMARY | 2024-07-13 17:44 | XMS_ITS | Encounter Summary ---
[place] [address] Care Team Providers Care Faculty Neuropsychologist Name Role Phone Melody Koenig MD Primary Care Provider [phone] Reason for Referral * Consultation (Routine) - Closed Specialty Diagnoses / Procedures Referred By Contac t Referred To Contact Obstetrics and Gynecology Diagnoses History of uterine scar from previous surgery Encounter for supervision of normal , antepartum, unspecified Tova Teran CNM [address] [place] [address] [address] [place] [address] [facility] [employer] [address] [place] [address] Referral ID Status Reason Start Date Expiration Date V isits Requested Visits Authorized [id number] Closed Consult, Test & Treat PCP Updated and/or Approved 10/30/2022 10/30/2023 6 6 Encounter Details Date Type Department Care Team (Late st Contact Info) Description 10/30/2022 Transcribe Orders eDH Incoming Referrals [phone] Tova Teran CNM [address] [place] [address] [address] [place], [place] [id number] History of uterine scar from previous surgery; [...] unspecified documented in this encounter Care Teams Faculty Neuropsychologist Relationship Specialty Start Date End Date Melody Koenig MD [address] [place] [address] PCP - General Family Medicine 10/30/22 11/29/22 documented as of this encounter
--- OUTSIDE RECORDS SUMMARY | 2024-07-13 17:44 | XMS_ITS | Encounter Summary ---
Author Organization [place] [address] Care Team Providers Care Global Sales Manager Name Role Phone Melody Koenig MD Primary Care Provider [phone] Encounter Details Date Type Department Care Team [...] on filedocumented in this encounter Care Teams Global Sales Manager Relationship Specialty Start Date End Date Melody Koenig MD [address] [place] [address] PCP - General Family Medicine 10/30/22 11/29/22 documented as of this encounter
--- OUTSIDE RECORDS SUMMARY | 2024-07-13 17:44 | XMS_ITS | Encounter Summary ---
Author Organization [facility] Address [address] [place] [address] Care Team Providers Care Annealing Oven Operator Name Role Phone Noris Tran Duncan CANTOR-C Primary Care Provider [phone] Encounter Details Date Type Department Care Team (Late st Contact Info) Description 12/22/2018 Historical Results Only [facility] [address] [place] [address] Clairssa Julian MD [address] [place] [address] Social History Tobacco Use Types [...] DESCRIPTION - PMC SOURCE 12/25/2018 11:38 EDT [facility] Comment:Nasopharynx ARNALDO RESULTS/ORGANISM ID - PMC ARNALDO Results 12/25/2018 11:38 EDT [facility] Comment:NO GROUP A BETA STRE PTOCOCCI ISOLATED ARNALDO STATUS/SUSCEPTIB ILITY - PMC FINAL 12/25/2018 11:38 EDT [facility] Comment: Final 12/25/2018 Test performed [place] [address] If you have questions about this culture, please contact [facility] Micro Department at [phone]. 12/22/2018 23:1 5 EDT 12/22/2018 23:26 EDT Clarissa Julian MD MICROBIOLOGY - GEN ERAL ORDERABLES [facility] * RAPID STREP GRP A; CULTURE IF NEG - PMC (12/22/2018 23:15 EDT) GRP A STREP AG RESULTS: - PMC NEGATIVE-CULT URE WILL BE PERFORMED 12/22/2018 23:29 EDT [facility] 12/22/2018 23:1 5 EDT 12/22/2018 23:26 EDT Comment:SWAB Clarissa Julian MD MICROBIOLOGY - GEN ERAL ORDERABLES [facility] documented in this encounter Visit Diagnoses Not on filedocumented in this encounter Care Teams Annealing Oven Operator Relationship Specialty Start Date End Date Noris Tran RPA-C [address] [place] [address] PCP - General 03/06/13 08/22/19 documented as of this encounter
--- OUTSIDE RECORDS SUMMARY | 2024-07-13 17:44 | XMS_ITS | Encounter Summary ---
Author [facility] [place] [address] Care Team Providers Care School Physical Therapist Name Role Phone Analisa Martinez Primary Care Provider [phone] Encounter Details Date Type Department Care Team (Late st Contact Info) Description 12/25/2022 9:00 AM EDT Office Visit Obstetrics [place] [address] Kate Lindsay MD [facility] [address] OBSTET[place]ICS [place] [address] Dehiscence of old uterine scar with extension [...] contractions. Plans to get all care at [facility], and to deliver here. Plan f/u visit [...] who have questions, please contact the health career advisor that requested your imaging first. ?Fide Haas, Staff Physician Electronically Signed Final Report ?? 02/19/2023 10:22 am Narrative 02/19/2023 10:22 AM EDT OBSTETRICS REPORT ?(Signed Final 02/19/2023 10:22 am) PATIENT INFO: ID #: ? [id number] ?: ??[birth year] (27 yrs)(F) Name: ? DENISE YOUNG ? Visit Date: 02/19/2023 10:09 am PERFORMED BY: Performed By: ? Lima Cummins RDMS Attending: ?Waldo MENESES, Fide Weir Referred By: ?Kate LINDSAY Location: ? [place] SERVICE(S) PROVIDED: UOBFOL - Efw - Growth ??- Brown - [id number] ?[id number] UOBTVCER - Transvaginal ??2nd Trimester - ?71354 Cervical Length - [id number] INDICATIONS: 28 weeks gestation of ?Z3A.28 h/o [...] Visualized Left Ovary Visualized Procedure Note Fide Hasa MD - 02/19/2023 OBSTETRICS REPORT (Signed Final 02/19/2023 10:22 am) PATIENT INFO: ID #: [id number] : [birth year] (27 yrs)(F) Name: DENISE JULIAN Visit Date: 02/19/2023 10:09 am PERFORMED BY: Performed By: Lima Cummins RDMS Attending: Fide Haas MD Referred By: Kate LINDSAY Location: [place] SERVICE(S) PROVIDED: UOBFOL - Efw - Growth - Brown - [id number] UOBTVCER - Transvaginal 2nd Trimester - 27057 Cervical Length - [id number] INDICATIONS: 28 weeks gestation of Z3A.28 h/o [...] who have questions, please contact the health career advisor that requested your imaging first. Fide Haas, [...] complication documented in this encounter Care Teams School Physical Therapist Relationship Specialty Start Date End Date Analisa Martinez PA [address] [place] [address] PCP - General 11/30/22 documented as of this encounter
--- OUTSIDE RECORDS SUMMARY | 2024-07-13 17:44 | XMS_ITS | Encounter Summary ---
Author Organization [facility] Address [address] [place] [address] Care Team Providers Care Frame Repairer Name Role Phone Joanna Alcaraz NP Primary Care Provider [phone] Encounter Details Date Type Department Care Team (Late st Contact Info) Description 10/29/2022 Lab Requisition [facility] Pathology & Laboratory Medicine - [facility] [address], [place] [address] Outr Resulting Lab, Provider Social History Tobacco [...] 4th Generation Negative Negative 10/30/2022 10:21 EST [facility] Comment:If acute HIV-1 infec tion is suspected in a high risk patient, submit plasma specimen for HIV-1 RNA quantitation test. Blood VENOUS BLOOD / Unknown 10/29/2022 10:23 EST 10/29/2022 17:13 EST Narrative [facility] - 10/30/2022 10:21 EST Fourth Generation assay performed on the Siemens Centaur XPT. Provider Outr Resulting Lab IMMUNOLOGY A ND SEROLOGY ORDERABLES [facility] [address] [place] [address] documented in this encounter Visit Diagnoses Not on filedocumented in this encounter Care Teams Frame Repairer Relationship Specialty Start Date End Date Joanna Alcaraz NP [address] [place] [phone] PCP - General 08/23/19 documented as of this encounter
--- OUTSIDE RECORDS SUMMARY | 2024-07-13 17:44 | XMS_ITS | Encounter Summary ---
[place] [address] Care Team Providers Care Insurance Sales Associate Name Role Phone Analisa Martinez Primary Care Provider [phone] Encounter Details Date Type Department Care Team (Late st Contact Info) Description 03/02/2023 Telephone Obstetrics [place] [address] Loida Hall RN Social History [...] Returned call to Isabel Julian [place] 30w3d [facility] patient H/O previous section Reports pains in [...] would review her note with the covering [facility] provider and would get back to her if any additional advice. Patient instructed that if she has pain that lasts more than a few minutes, or is not relieved by rest, or if she has pain that is accompanied by vaginal bleeding, cramping and/or nausea/vomiting please let us know right away by calling [phone] (and that after hours provider can be reached by this number as well). Isabel verbalized understanding of and agreement with plan. documented in this encounter Plan of Treatment Not on file documented as of this encounter Visit Diagnoses Not on filedocumented in this encounter Care Teams Insurance Sales Associate Relationship Specialty Start Date End Date [place]isa [place] [address] PCP - General 11/30/22 documented as of this encounter
--- OUTSIDE RECORDS SUMMARY | 2024-07-13 17:44 | XMS_ITS | Encounter Summary ---
Author Organization [facility] Address [facility] [place] [place] [address] Care Team Providers Care Stress Engineer Name Role Phone Analisa Martinez Primary Care Provider [phone] Encounter Details Date Type Department Care Team (Latest Contact Info) Description 12/25/2022 7:58 AM EDT - 12/25/2022 11:59 PM EDT Hospital [place] [address] Tan Sanches MD [facility] [place] [address] Previous delivery affecting , antepartum; Dehiscence of [...] by mouth daily. 05/24/2023 vitamin 27 & [id number]-bspc-UN 60 mg iron-1 mg Tablet Take 1 [...] have questions, please contact the health health care technician that requested your imaging first. ? Monika Lindsay, Staff Physician Electronically Signed Final Report ?? 12/25/2022 11:23 am Narrative 12/25/2022 11:24 AM EDT OBSTETRICS REPORT ?(Signed Final 12/25/2022 11:23 am) PATIENT INFO: ID #: ? [id number] ?: ??[birth year] (27 yrs)(F) Name: ? DENISE JULIAN ? Visit Date: 12/25/2022 08:38 am PERFORMED BY: Performed By: ? Marcela Edward RDMS Attending: ?Monika Lindsay MD Referred By: ?TAN SANCHES Location: ? [facility] SERVICE(S) PROVIDED: [facility] - Detailed Morphology - [id number] ? 26687 UOBTVCER - Transvaginal ??2nd Trimester - ?97218 Cervical Length - [id number] INDICATIONS: 20 weeks gestation of ?Z3A.20 History [...] Arch: ? Visualized SVC: ? Visualized Cardiac [place]: ?Visualized Diaphragm: ? Visualized 3 Vessel View: [...] 12/25/2022 11:23 am) PATIENT INFO: ID #: [id number] : [birth year] (27 yrs)(F) Name: DENISE JULIAN Visit Date: 12/25/2022 08:38 am PERFORMED BY: Performed By: Marcela Edward RDMS Attending: Monika Lindsay MD Referred By: TAN SANCHES Location: [facility] SERVICE(S) PROVIDED: [facility] - Detailed Morphology - [id number] 27505 UOBTVCER - Transvaginal 2nd Trimester - 86732 Cervical Length - [id number] INDICATIONS: 20 weeks gestation of Z3A.20 History [...] Visualized Ductal Arch: Visualized SVC: Visualized Cardiac [place]: Visualized Diaphragm: Visualized 3 Vessel View: Visualized [...] have questions, please contact the health health care technician that requested your imaging first. 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
--- OUTSIDE RECORDS SUMMARY | 2024-07-13 17:44 | XMS_ITS | Encounter Summary ---
Author Organization [facility] Address [address] [place] [address] Care Team Providers Care Refrigerator Car Icer Name Role Phone Noris Tran Primary Care Provider [phone] Encounter Details Date Type Department Care Team (Latest Contact Info) Description 05/14/2014 18:48 EDT - 05/14/2014 18:49 EDT Hospital Encounter [address] [address] Deb Pan MD [address] [address] Discharge Disposition: Home or Self Care Social [...] on filedocumented in this encounter Care Teams Refrigerator Car Icer Relationship Specialty Start Date End Date Noris Tran RPA-C [address] [place] [address] PCP - General 03/06/13 08/22/19 documented as of this encounter
--- OUTSIDE RECORDS SUMMARY | 2024-07-13 17:44 | XMS_ITS | Encounter Summary ---
Author Organization [facility] Address [facility] [place] [address] Care Team Providers Care Senior Software Systems Engineer Name Role Phone Analisa Martinez Primary Care Provider [phone] Encounter Details Date Type Department Care Team [...] filedocumented in this encounter Care Teams Senior Software Systems Engineer Relationship Specialty Start Date End Date [place] [address] PCP - General 11/30/22 documented as of this encounter
--- OUTSIDE RECORDS SUMMARY | 2024-07-13 17:44 | XMS_ITS | Encounter Summary ---
Author Organization [facility] Address [facility] [place] [address] Care Team Providers Care Phlebotomist Name Role Phone Melody Koenig MD Primary Care Provider Reason for Visit * Reason Comments TeleHealth * Consultation (Routine) - Closed Specialty Diagnoses / Procedures Referred By Contac t Referred To Contact Obstetrics and Gynecology Diagnoses History of uterine scar from previous surgery Encounter for supervision of normal , antepartum, unspecified [address] [place] [address] [facility] [place] [place] Auricular Detoxification Specialist [address] [place] [address] Referral ID Status Reason Start Date Expiration Date V isits Requested Visits Authorized [id number] Closed Consult, Test & Treat PCP Updated and/or Approved 10/30/2022 10/30/2023 6 6 Encounter Details Date Type Department Care Team (Latest Contact Info) Description 11/17/2022 11:15 AM EST TH Visit (TeleHealth) Obstetrics [place] [address] Tan Sanches MD [facility] [address] [place] [address] Previous delivery affecting , antepartum; [...] in [place]_x_ [place]__[place]__ [place]__ If not on [facility], working on signing up for my Confirmed has completed any pre-visit questionnaires If has not received required previsit questionnaires, send via [facility] __x_Reviewed medications, allergies, pharmacy, pain/depression, education _x__Documented [...] who have questions, please contact the health home health caregiver that requested your imaging first. ? Monika Lindsay, Staff Physician Electronically Signed Final Report ?? 12/25/2022 11:23 am Narrative 12/25/2022 11:24 AM EDT OBSTETRICS REPORT ?(Signed Final 12/25/2022 11:23 am) PATIENT INFO: ID #: ? [id number] ?: ??[birth year] (27 yrs)(F) Name: ? DENISE YOUNG ? Visit Date: 12/25/2022 08:38 am PERFORMED BY: Performed By: ? Marcela Edward RDMS Attending: ?Monika Lindsay MD Referred By: ?TAN SANCHES Location: ? [place] SERVICE(S) PROVIDED: [facility] - Detailed Morphology - [id number] ? [id number] UOBTVCER - Transvaginal ??2nd Trimester - ?28341 Cervical Length - [id number] INDICATIONS: 20 weeks gestation of ?Z3A.20 History [...] Arch: ? Visualized SVC: ? Visualized Cardiac Windham: ?Visualized Diaphragm: ? Visualized 3 Vessel View: [...] 12/25/2022 11:23 am) PATIENT INFO: ID #: [id number] : [birth year] (27 yrs)(F) Name: DENISE JULIAN Visit Date: 12/25/2022 08:38 am PERFORMED BY: Performed By: Marcela Edward RDMS Attending: Monika Lindsay MD Referred By: TAN SANCHES Location: [place] SERVICE(S) PROVIDED: [facility] - Detailed Morphology - [id number] UOBTVCER - Transvaginal 2nd Trimester - 46197 Cervical Length - [id number] INDICATIONS: 20 weeks gestation of Z3A.20 History [...] Visualized Ductal Arch: Visualized SVC: Visualized Cardiac Windham: Visualized Diaphragm: Visualized 3 Vessel View: Visualized [...] who have questions, please contact the health home health caregiver that requested your imaging first. Monika Lindsay, [...] delivered documented in this encounter Care Teams Phlebotomist Relationship Specialty Start Date End Date Melody Koenig MD [address] [place] [address] PCP - General Family Medicine 10/30/22 11/29/22 documented as of this encounter
--- OUTSIDE RECORDS SUMMARY | 2024-07-13 17:44 | XMS_ITS | Encounter Summary ---
Author Organization [facility] Address [facility] [place] [address] Care Team Providers Care Accounting Teacher Name Role Phone Analisa Martinez Primary Care Provider [phone] Encounter Details Date Type Department Care Team [...] on filedocumented in this encounter Care Teams Accounting Teacher Relationship Specialty Start Date End Date [place] [address] PCP - General 11/30/22 documented as of this encounter
--- OUTSIDE RECORDS SUMMARY | 2024-07-13 17:44 | XMS_ITS | Encounter Summary ---
Author Organization [facility]ood [facility] [place] [address] Care Team Providers Care Manager Environmental Affairs Name Role Phone Analisa Martinez Primary Care Provider [phone] Reason for Visit * Reason Comments Routine Visit Encounter Details Date Type Department Care Team (Late st Contact Info) Description 02/19/2023 11:00 AM EDT Routine Obstetrics [place] [address] Casey Armendariz MD [facility] DR OBSTETRICS [place] [address] GA: 28w6d Social History Tobacco Use Types [...] applicable documented in this encounter Care Teams Manager Environmental Affairs Relationship Specialty Start Date End Date Analisa Martinez [place] [address] PCP - General 11/30/22 documented as of this encounter
--- OUTSIDE RECORDS SUMMARY | 2024-07-13 17:44 | XMS_ITS | Encounter Summary ---
Author Organization [facility]ood [facility] [place] [place] [address] Care Team Providers Care Hypoid Gear Tester Name Role Phone Analisa Martinez Primary Care Provider Reason for Visit * Reason Comments Routine Visit Encounter Details Date Type Department Care Team (Late st Contact Info) Description 03/10/2023 4:30 PM EDT Routine Obstetrics [place] [address] Casey Armendariz MD [facility] DR OBSTETRICS [place] [address] GA: 31w4d Social History Tobacco Use Types [...] disorders documented in this encounter Care Teams Hypoid Gear Tester Relationship Specialty Start Date End Date [place] [address] PCP - General 11/30/22 documented as of this encounter
--- OUTSIDE RECORDS SUMMARY | 2024-07-13 17:44 | XMS_ITS | Encounter Summary ---
Author Organization [facility]ood [facility] [place] [address] Care Team Providers Care Outreach Consultant Name Role Phone Analisa Martinez Primary Care Provider [phone] Encounter Details Date Type Department Care Team (Late st Contact Info) Description 03/17/2023 Telephone Obstetrics [place] [id number] Vilma Collins MD [facility] DR OBSTETRICS & [place] [address] Social History Tobacco Use Types Packs/Day Years [...] applicable documented in this encounter Care Teams Outreach Consultant Relationship Specialty Start Date End Date Analisa Martinez PA [address] [place] [address] PCP - General 11/30/22 documented as of this encounter
--- OUTSIDE RECORDS SUMMARY | 2024-07-13 17:44 | XMS_ITS | Encounter Summary ---
Author Organization [facility] Address [facility] [place] [address] Care Team Providers Care Interior Design Consultant Name Role Phone Analisa Martinez Primary Care Provider [phone] Encounter Details Date Type Department Care Team [...] on filedocumented in this encounter Care Teams Interior Design Consultant Relationship Specialty Start Date End Date Analisa [place] [address] PCP - General 11/30/22 documented as of this encounter
--- OUTSIDE RECORDS SUMMARY | 2024-07-13 17:44 | XMS_ITS | Encounter Summary ---
Author Organization [facility] Address [facility] [place] [address] Care Team Providers Care Weather Clerk Name Role Phone Analisa Martinez Primary Care Provider [phone] Encounter Details Date Type Department Care Team [...] on filedocumented in this encounter Care Teams Weather Clerk Relationship Specialty Start Date End Date Analisa [place] [address] PCP - General 11/30/22 documented as of this encounter
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
--- OUTSIDE RECORDS SUMMARY | 2024-07-13 17:44 | XMS_ITS | Clinical Summary ---
Author Organization [facility] Address [address] [place] [address] Care Team Providers Care Front End Driver Name Role Phone Joanna Alcaraz NP Primary Care Provider [phone] Social History Tobacco Use Types Packs/Day Years [...] C Antibody Negative Negative 10/30/2022 10:33 EST [facility] Blood VENOUS BLOOD / Unknown 10/29/2022 10:23 EST 10/29/2022 17:12 EST Provider Outr Resulting Lab CHEMISTRY & BLOOD GAS ORDERABLES [facility] [address] [place] [address] from Last 3 Months or Most Recently Relevant to Health Maintenance Care Teams Front End Driver Relationship Specialty Start Date End Date Joanna Alcaraz NP [address] [place] [address] [facility] - General 08/23/19
--- OUTSIDE RECORDS SUMMARY | 2024-07-13 17:44 | XMS_ITS | Encounter Summary ---
[place] [address] Care Team Providers Care Red Lead Burner Name Role Phone Analisa Martinez Primary Care Provider [phone] Encounter Details Date Type Department Care Team (Latest Contact Info) Description 02/19/2023 7:15 AM EDT Laboratory Appointment Lab [address] [place] [address] Elevated glucose tolerance test Social History Tobacco [...] 3 Hour 95 65 - 139 mg/dL [facility] Blood 02/19/2023 10:2 9 AM EDT 02/19/2023 10:32 AM EDT Narrative Resulting Agency Comment Spec In Lab Nitza Murguia MD CHEMISTRY ORDERABLES Performing Organization Address City/[facility]/ZIP Co de Phone Number [facility] [place] [address] * Glucose 2 Hr Gestational (02/19/2023 9:35 AM EDT) Glucose Tolerance Gestational, 2 Hour 115 65 - 154 mg/dL [facility] Blood 02/19/2023 9:35 AM EDT 02/19/2023 9:40 AM EDT Narrative Resulting Agency Comment Spec In Lab Nitza Murguia MD CHEMISTRY ORDERABLES Performing Organization Address City/[facility]/ZIP Co de Phone Number [facility] [place] [address] * Glucose 1 Hr Gestational (02/19/2023 8:33 AM EDT) Gluc 1 Hr Gestational 160 65 - 179 mg/dL [facility] Blood 02/19/2023 8:33 AM EDT 02/19/2023 8:37 AM EDT Narrative Resulting Agency Comment Spec In Lab Nitza Murguia MD CHEMISTRY ORDERABLES Performing Organization Address City/[facility]/ZIP Co de Phone Number [facility] [place] [address] * Oral Glucose Dose Gestational (02/19/2023 7:30 AM EDT) Oral Glucose Dose 100 gm [facility] Blood 02/19/2023 7:30 AM EDT 02/19/2023 7:41 AM EDT Nitza Murguia MD CHEMISTRY ORDERABLES Performing Organization Address City/[facility] Co de Phone Number [facility] [place] [address] * Glucose Fasting Gestational (02/19/2023 7:30 AM EDT) Glucose Tolerance Gestational, Fasting 83 65 - 94 mg/dL [facility] Comment: Diagnosis of gestational diabetes mellitus requires that two or more glucose thresholds are exceeded in a single oral glucose tolerance test. Citation:, Gestational diabetes mellitus. Practice Bulletin No. 180. ACOG. Obstet Gynecol 2017;130:e17-31 Blood 02/19/2023 7:30 AM EDT 02/19/2023 7:41 AM EDT Narrative Resulting Agency Comment Spec In Lab Nitza Murguia MD CHEMISTRY ORDERABLES Performing Organization Address [facility] Co de Phone Number [facility] [place] [address] documented in this encounter Visit Diagnoses Diagnosis Elevated glucose tolerance test Impaired glucose tolerance test documented in this encounter Care Teams Red Lead Burner Relationship Specialty Start Date End Date Analisa Martinez PA [address] [place] [address] PCP - General 11/30/22 documented as of this encounter
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
--- OUTSIDE RECORDS SUMMARY | 2024-07-13 17:44 | XMS_ITS | Encounter Summary ---
Author Organization [facility] Address [address] [place] [address] Care Team Providers Care Manager People Name Role Phone Nolberto Tranmeng Song RPA-C Primary Care Provider [phone] Encounter Details Date Type Department Care Team (Late st Contact Info) Description 05/15/2014 Results Only [facility] Laboratory Services - [facility] ([facility]) [address] [place] [address] Deb Pan MD [address] [place] [address] Social History Tobacco Use Types Packs/Day Years [...] & BLOOD G ORDERABLES Performing Organization Address City/[facility] Co de Phone Number [facility] [address] [place] [address] * QUAD MARKERS (05/14/2014 12:10 EDT) AFP/QUAD Sample Sample received in the lab. [facility] 05/14/2014 12:1 0 EDT 05/15/2014 13:39 EDT Deb Pan MD CHEMISTRY & BLOOD G ORDERABLES Performing Organization Address [facility] Co de Phone Number [facility] [address] [place] [address] documented in this encounter Visit Diagnoses Not on filedocumented in this encounter Care Teams Manager People Relationship Specialty Start Date End Date Noris Tran, RPA-C [address] [place] [address] PCP - General 03/06/13 08/22/19 documented as of this encounter
--- OUTSIDE RECORDS SUMMARY | 2024-07-13 17:44 | XMS_ITS | Encounter Summary ---
Author Organization [facility] Address [address] [place] [address] Care Team Providers Care Instructional Designer Name Role Phone Joanna Alcaraz NP Primary Care Provider [phone] Encounter Details Date Type Department Care Team (Late st Contact Info) Description 06/29/2022 Lab Requisition [facility] Pathology & Laboratory Medicine - [facility] [address] [place], [place] [address] Outr Resulting Lab, Provider Social History Tobacco [...] Outr Resulting Lab MICROBIOLOGY - GENERAL ORDERABLES [facility] [address] [place] [address] * COVID-19 TESTING (06/28/2022 21:16 EDT) COVID-19 rt-PCR Result Negative Negative 06/30/2022 13:47 EDT [facility] Comment: This test [...] was performed using the thelma SARS-CoV-2 assay ([employer] on the Thelma 6800 System Performing Lab Thelma [address] [facility] Lab 06/30/2022 13:47 EDT [facility] Swab 06/28/2022 21:1 6 EDT 06/29/2022 17:35 EDT Provider Outr Resulting Lab MICROBIOLOGY - GENERAL ORDERABLES [facility] [address] [place] [address] documented in this encounter Visit Diagnoses Not on filedocumented in this encounter Care Teams Instructional Designer Relationship Specialty Start Date End Date Joanna Alcaraz NP [address] [place] [address] PCP - General 08/23/19 documented as of this encounter
--- OUTSIDE RECORDS SUMMARY | 2024-07-13 17:44 | XMS_ITS | Encounter Summary ---
Author Organization [facility] Address [facility] [place] [address] Care Team Providers Care Gluing Machine Offbearer Name Role Phone Analisa Martinez Primary Care Provider [phone] Encounter Details Date Type Department Care Team (Latest Contact Info) Description 02/19/2023 9:46 AM EDT - 02/19/2023 11:59 PM EDT Hospital [place] [address] Kate Lindsay MD [facility] [place] [address] Dehiscence of old uterine scar with extension [...] by mouth daily. 05/24/2023 vitamin 27 & [id number] 60 mg iron-1 mg Tablet Take 1 [...] who have questions, please contact the health rn home care that requested your imaging first. ?Fide Haas, Staff Physician Electronically Signed Final Report ?? 02/19/2023 10:22 am Narrative 02/19/2023 10:22 AM EDT OBSTETRICS REPORT ?(Signed Final 02/19/2023 10:22 am) PATIENT INFO: ID #: ? [id number] ?: ??[birth year] (27 yrs)(F) Name: ? DENISE JULIAN ? Visit Date: 02/19/2023 10:09 am PERFORMED BY: Performed By: ? Lima Cummins RDMS Attending: ?Waldo MENESES, Fide Weir Referred By: ?Kate LINDSAY Location: ? [place] SERVICE(S) PROVIDED: UOBFOL - Efw - Growth ??- Brown - [id number] ?[id number] UOBTVCER - Transvaginal ??2nd Trimester - ?21600 Cervical Length - [id number] INDICATIONS: 28 weeks gestation of ?Z3A.28 h/o [...] 02/19/2023 10:22 am) PATIENT INFO: ID #: [id number] : [birth year] (27 yrs)(F) Name: DENISE JULIAN Visit Date: 02/19/2023 10:09 am PERFORMED BY: Performed By: Lima Cummins RDMS Attending: Fide Haas MD Referred By: Kate LINDSAY Location: [place] SERVICE(S) PROVIDED: UOBFOL - Efw - Growth - Brown - [id number] UOBTVCER - Transvaginal 2nd Trimester - 07252 Cervical Length - [id number] INDICATIONS: 28 weeks gestation of Z3A.28 h/o [...] who have questions, please contact the health rn home care that requested your imaging first. Fide Haas, Staff Physician Electronically Signed Final Report 02/19/2023 10:22 am E Hyacinth Lindsay MD IMG US OB ORDERAB LES documented in this encounter Visit Diagnoses Diagnosis Dehiscence of old uterine scar with extension before onset of labor, delivered Previous delivery affecting , antepartum Previous delivery, antepartum condition or complication documented in this encounter Care Teams Gluing Machine Offbearer Relationship Specialty Start Date End Date Analisa Martinez PA [address] [place] [address] PCP - General 11/30/22 documented as of this encounter
--- OUTSIDE RECORDS SUMMARY | 2024-07-13 17:44 | XMS_ITS | Encounter Summary ---
Author Organization [facility] Address [address] [place] [address] Care Team Providers Care Guidance Services Coordinator Name Role Phone Noris Tran Primary Care Provider [phone] Encounter Details Date Type Department Care Team (Late st Contact Info) Description 03/06/2013 Results Only Imaging [facility] [phone] Noris Tran RPA-C [address] [place] [address] Social History Tobacco Use Types Packs/Day Years Used Date Smoking Tobacco: Never Assessed Sex and Gender Information Value Date Recorded Sex Assigned at Not on file Gender Identity Not on file Sexual Orientation Not on file documented as of this encounter Plan of Treatment Not on file documented as of this encounter Visit Diagnoses Not on filedocumented in this encounter Care Teams Guidance Services Coordinator Relationship Specialty Start Date End Date Noris Tran RPA-C [address] [place] [address] PCP - General 03/06/13 08/22/19 documented as of this encounter
--- OUTSIDE RECORDS SUMMARY | 2024-07-13 17:44 | XMS_ITS | Encounter Summary ---
Author Organization [facility] Address [address] [place] [address] Care Team Providers Care Microwave Oven Assembler Name Role Phone Joanna Alcaraz NP Primary Care Provider [phone] Encounter Details Date Type Department Care Team (Late st Contact Info) Description 10/29/2022 Lab Requisition [facility] Pathology & Laboratory Medicine - [address] [id number] Outr Resulting Lab, Provider Social History Tobacco [...] gonorrhoeae Result Negative Negative 10/30/2022 13:39 EST [facility] Chlamydia trachomatis Result Negative Negative 10/30/2022 13:39 EST [facility] Swab ENTIRE VAGINA / Unknown 10/29/2022 9:00 EST 10/29/2022 21:54 EST Provider Outr Resulting Lab MICROBIOLOGY - GENERAL ORDERABLES [facility] [address] [place] [address] documented in this encounter Visit Diagnoses Not on filedocumented in this encounter Care Teams Microwave Oven Assembler Relationship Specialty Start Date End Date Joanna Alcaraz NP [address] [place] [phone] PCP - General 08/23/19 documented as of this encounter
--- OUTSIDE RECORDS SUMMARY | 2024-07-13 17:44 | XMS_ITS | Encounter Summary ---
Author Organization [facility] [place] [address] Care Team Providers Care Meat Sales And Storage Manager Name Role Phone Melody Koenig MD Primary Care Provider [phone] Reason for Visit * Reason Comments Follow-up Encounter Details Date Type Department Care Team (Late st Contact Info) Description 11/20/2022 10:30 AM EST Office Visit Obstetrics [place] [address] Casey Armendariz MD [facility] [address] OBSTETRICS [place] [address] , unspecified gestational age; Arthralgia, unspecified joint; [...] seen 3 days ago in ED of [facility] for pelvic joint pain and low abdominal/suprapubic [...] minutes was spent performing this follow up [facility] visit. Addendum: ELHAM and Rheumatoid Factor are [...] , unspecified gestational age TYPE AND SCREEN ([facility]/CGP/SHANTEL) Routine 11/20/2022 12:30 PM EST , unspecified gestational age HC RHEUMATOID FACTOR Routine 11/20/2022 12:30 PM EST Arthralgia, unspecified joint HC DNA AB DS ([place]) Routine 11/20/2022 12:30 PM EST Arthralgia, unspecified joint COMPREHENSIVE METABOLIC PANEL Routine 11/20/2022 12:30 PM EST Arthralgia, unspecified joint documented in this encounter Results * Type and Screen Validity (11/20/2022 12:30 PM EST) T&S only valid at [facility] LABORATORY Comment:This Type and Screen result is only valid at the [facility] Blood 11/20/2022 12:3 0 PM EST 11/20/2022 12:40 PM EST Narrative Resulting Agency Comment Spec In Lab Casey Armendariz MD BLOOD BANK LAB ORDER SHABNAM Performing Organization Address City/[facility]/ZIP Co de Phone Number [facility] [place] [address] * ABORH Recheck Status (11/20/2022 12:30 PM EST) ABORH Recheck Order Order Placed [facility] ABORH Type Recheck Not Performed [facility] Blood 11/20/2022 12:3 0 PM EST 11/20/2022 12:40 PM EST Narrative Resulting Agency Comment Spec In Lab Casey Armendariz MD BLOOD BANK LAB ORDER SHABNAM [facility] [place] [address] * Antibody screen (11/20/2022 12:30 PM EST) Pathologist [facility] Ab Screen Interp Negative [facility] Expires at 2359 on: 11/23/2022 [facility] Blood 11/20/2022 12:3 0 PM EST 11/20/2022 12:40 PM EST Narrative Resulting Agency Comment Spec In Lab Casey Armendariz MD BLOOD BANK LAB ORDER SHABNAM [facility] [place] [address] * ABO/Rh Typing (11/20/2022 12:30 PM EST) Pathologist [facility] ABORH Type A Pos [facility] LABORATORY Blood 11/20/2022 12:3 0 PM EST 11/20/2022 12:40 PM EST Narrative Resulting Agency Comment Spec In Lab Casey Armendariz MD BLOOD BANK LAB ORDER SHABNAM Performing Organization Address City/[facility]/ZIP Co de Phone Number [facility] [place] [address] * (ABNORMAL) Hemogram (11/20/2022 12:30 PM EST) Pathologist [facility] White Blood Cell 9.7(H) 4.0 - 9.5 x10(3)/mc L [facility] Red Blood Cell 4.37 4.00 - 5.21 x10(6)/mc L [facility] Hemoglobin 13.2 11.7 - 15.5 g/dL [facility] Hematocrit 38.6 35.7 - 45.8 % [facility] Mean Cell Volume 88.3 82.6 - 94.4 fL [facility] Mean Cell Hemoglobin 30.2 27.1 - 32.0 pg [facility] Mean Cell Hemoglobin Concentration 34.2 31.7 - 35.0 g/dL [facility] Platelet 141(L) 145 - 357 x10(3)/mc L [facility] RDW Standard Deviation 43.2 37.0 - 46.0 fL [facility] RDW coefficient of variation 13.2 11.5 - 14.1 % [facility] Mean Platelet Volume 12.3 7.6 - 12.9 fL [facility] NRBC% auto 0.0 % [facility] NRBC Absolute 0.000 0.000 - 0.000 x10(3)/mc L [facility] Blood 11/20/2022 12:3 0 PM EST 11/20/2022 12:37 PM EST Narrative Resulting Agency Comment Spec In Lab Casey Armendariz MD HEMATOLOGY ORDERABLE S [facility] [place] [address] * (ABNORMAL) Comprehensive metabolic panel (non-fasting) (11/20/2022 12:30 PM EST) Glucose 82 65 - 199 mg/dL [facility] Comment:Diabetes: >=200 mg/d L plus symptoms Blood Urea Nitrogen 5(L) 8 - 18 mg/dL [facility] Creatinine 0.50(L) 0.70 - 1.20 mg/dL [facility] Sodium 137 135 - 145 mmol/L [facility] Potassium 4.4 3.5 - 5.0 mmol/L [facility] Comment: Please note: ??Patients with WBC >100,000 may have falsely elevated Potassium levels. ??For accurate Potassium quantification in these patients send serum separator tube (gold top) for subsequent determinations. ??Contact the Clinical Chemistry Laboratory if there are any questions. Chloride 104 98 - 107 mmol/L [facility] Carbon Dioxide 23 22 - 31 mmol/L [facility] Anion Gap 10 5 - 15 mmol/L [facility] Calcium 9.5 8.5 - 10.5 mg/dL [facility] Protein, Total 7.0 6.1 - 8.0 g/dL [facility] Albumin 4.0 3.2 - 5.2 g/dL [facility] Aspartate Aminotransferase 13 0 - 30 unit/L [facility] Alanine Aminotransferase 13 0 - 30 unit/L [facility] Alkaline Phosphatase 51 35 - 105 unit/L [facility] Bilirubin, Total <0.2(L) 0.2 - 1.3 mg/dL [facility] Est Glomerular Filtration Rate 131 >=60 mL/min/1. 73 m?? [facility] Comment: This patient's estimated GFR was [...] Armendariz MD CHEMISTRY ORDERABLES Performing Organization Address [facility] Co de Phone Number [facility] [place] [address] * Rheumatoid factor, quant (11/20/2022 12:30 PM EST) Rheumatoid Factor <10 <=14 IU/mL [facility] Blood 11/20/2022 12:3 0 PM EST 11/20/2022 12:37 PM EST Narrative Resulting Agency Comment Spec In Lab Casey Armendariz MD CHEMISTRY ORDERABLES Performing Organization Address [facility] [place] [address] * [place]AM Antibody Screen (11/20/2022 12:30 PM EST) [place] Ab Screen Negative Negative [facility] Comment: This antinuclear antibody (ELHAM) screen is a qualitative test performed using a fluoroenzyme immunoassay on the [employer] 250 analyzer. This screen is designed to [...] performed by the Special Chemistry Laboratory at [facility]. This change in testing location is associated with a change is testing method and reference intervals. Please review the results of this test in association with the posted reference intervals. dsDNA Ab 0.6 <=15.0 IU/mL [facility] Comment: <10 negative 10-15 equivocal >15 positive This dsDNA antibody result was generated using a fluoroenzyme immunoassay on the [employer]ral 250 analyzer. This quantitative test is designed to detect IgG antibodies directed against double stranded DNA in human serum. The presence of antibodies that recognize dsDNA is a highly specific marker for systemic lupus erythematosus. Please note that as of 07/21/2022 that this testing is performed by the Special Chemistry Laboratory at [facility]. This change in testing location is associated with a change is testing method and reference intervals. Please review the results of this test in association with the posted reference intervals. Blood 11/20/2022 12:3 0 PM EST 11/20/2022 1:46 PM EST Narrative Resulting Agency Comment Spec In Lab Casey Armendariz MD LAB SEND OUT ORDERAB LES [facility] [place] [address] documented in this encounter Visit Diagnoses Diagnosis , unspecified gestational age Arthralgia, unspecified joint Uterine fibroid in Tumors of body of uterus, unspecified as to episode of care in documented in this encounter Care Teams Meat Sales And Storage Manager Relationship Specialty Start Date End Date Melody Koenig MD [address] [place] [address] PCP - General Family Medicine 10/30/22 11/29/22 documented as of this encounter
--- OUTSIDE RECORDS SUMMARY | 2024-07-13 17:44 | XMS_ITS | Referral Summary ---
Author Organization [facility] Address [address] [place] [address] Care Team Providers Care Wireless Telegrapher Name Role Phone Joanna Alcaraz NP Primary Care Provider [phone] Social History Tobacco Use Types Packs/Day Years [...] C Antibody Negative Negative 10/30/2022 10:33 EST [facility] Blood VENOUS BLOOD / Unknown 10/29/2022 10:23 EST 10/29/2022 17:12 EST Provider Outr Resulting Lab CHEMISTRY & BLOOD GAS ORDERABLES [facility] [address] [place] [address] from Last 3 Months or Most Recently Relevant to Health Maintenance Care Teams Wireless Telegrapher Relationship Specialty Start Date End Date Joanna Alcaraz NP [address] [place] [phone] PCP - General 08/23/19
--- OUTSIDE RECORDS SUMMARY | 2024-07-13 17:44 | XMS_ITS | Encounter Summary ---
Author Organization [facility] [place] [address] Care Team Providers Care Morning Show Host Name Role Phone Melody Koenig MD Primary Care Provider [phone] Encounter Details Date Type Department Care Team (Late st Contact Info) Description 11/26/2022 Notes Only Obstetrics [place] [address] Fide Haas MD [facility] [place] [address] Social History Tobacco Use Types Packs/Day Years [...] on filedocumented in this encounter Care Teams Morning Show Host Relationship Specialty Start Date End Date Melody Koenig MD [address] [place], [place] [id number] PCP - General Family Medicine 10/30/22 11/29/22 documented as of this encounter
--- OUTSIDE RECORDS SUMMARY | 2024-07-13 17:44 | XMS_ITS | Encounter Summary ---
Author Organization [facility] [place] [address] Care Team Providers Care Writing Center Director Name Role Phone Melody Koenig MD Primary Care Provider [phone] Encounter Details Date Type Department Care Team (Late st Contact Info) Description 11/26/2022 Orders Only Obstetrics [place] [address] Fide Haas MD [facility] [address] [place] [address] Back pain affecting in second trimester Social [...] EST Returned patient call. Had visit to [facility] for pain and is angry with their [...] trimester documented in this encounter Care Teams Writing Center Director Relationship Specialty Start Date End Date Melody Koenig MD [address] [place] [id number] PCP - General Family Medicine 10/30/22 11/29/22 documented as of this encounter
--- OUTSIDE RECORDS SUMMARY | 2024-07-13 17:44 | XMS_ITS | Encounter Summary ---
[place] [address] Care Team Providers Care Deicer Element Winder Machine Name Role Phone Analisa Martinez Primary Care Provider [phone] Encounter Details Date Type Department Care Team (Late st Contact Info) Description 02/15/2023 Telephone Obstetrics [place] [address] Loida Hall RN Social History [...] Returned call to Isabel Julian [place] 28w2d [facility] patient Isabel called with questions about gtt, wanted to know how long she be fasting before the test. Returned call and let Isabel know that it is not necessary to fast before the test. documented in this encounter Plan of Treatment Not on file documented as of this encounter Visit Diagnoses Not on filedocumented in this encounter Care Teams Deicer Element Winder Machine Relationship Specialty Start Date End Date Analisa Martinez PA [address] [place] [address] PCP - General 11/30/22 documented as of this encounter
--- OUTSIDE RECORDS SUMMARY | 2024-07-13 17:44 | XMS_ITS | Encounter Summary ---
Author Organization [facility] Address [address] [place] [address] Care Team Providers Care Enrober Name Role Phone Joanna Alcaraz NP Primary Care Provider [phone] Encounter Details Date Type Department Care Team (Late st Contact Info) Description 05/01/2022 Lab Requisition [facility] Pathology & Laboratory Medicine - [facility] [address] [place], [place] [address] Outr Resulting Lab, Provider Social History Tobacco [...] Outr Resulting Lab MICROBIOLOGY - GENERAL ORDERABLES [facility] [address] [place] [address] * COVID-19 TESTING (04/30/2022 18:26 EDT) COVID-19 rt-PCR Result Negative Negative 05/02/2022 12:00 EDT [facility] Comment: This test has [...] was performed using the thelma SARS-CoV-2 assay ([employer] on the Thelma 6800 System Performing Lab Thelma 68[address] [facility] Lab 05/02/2022 12:00 EDT [facility] Swab 04/30/2022 18:2 6 EDT 05/01/2022 17:42 EDT Provider Outr Resulting Lab MICROBIOLOGY - GENERAL ORDERABLES [facility] [address] [place] [address] documented in this encounter Visit Diagnoses Not on filedocumented in this encounter Care Teams Enrober Relationship Specialty Start Date End Date Joanna Alcaraz NP [address] [place] [phone] PCP - General 08/23/19 documented as of this encounter
--- OUTSIDE RECORDS SUMMARY | 2024-07-13 17:44 | XMS_ITS | Patient Health Record ---
Author Organization [facility] Address [address] [place] [address] Care Team Providers Care Para Operator Name Role Phone DESTINI DAMON MD Primary [...] Insured Coverage Start Date Coverage End Date [facility] [address] [place], [place] [id number] December, Child - Insured has Financial Responsibility [place] [address] DENISE MENDEZ Self - patient is the insured MEDICAL (GENERAL) HISTORY Medical History History ICD Code Anxiety PTSD Fatigue Surgical History Surgery Date(Month/Year)
--- OUTSIDE RECORDS SUMMARY | 2024-07-13 17:44 | XMS_ITS | Encounter Summary ---
Author Organization [facility] Address [facility] [place] [address] Care Team Providers Care Veneer Stock Layer Name Role Phone Analisa Martinez Primary Care Provider [phone] Reason for Visit * Reason Comments Routine Visit Encounter Details Date Type Department Care Team (Late st Contact Info) Description 01/21/2023 1:00 PM EDT Routine Obstetrics [place] [address] Nitza Murguia MD [facility] [address] OBSTETRICS [place] [address] GA: 24w5d Social History Tobacco Use Types [...] (if applicable) along with the Guide to [place] was given to the patient. The materials [...] 140 Will do GCT [facility] hem[facility] at [facility] CS scheduled 36 6/7 Will need steroids ERB documented in this encounter Plan of Treatment Not on file documented as of this encounter Visit Diagnoses Diagnosis , unspecified gestational age Dehiscence of old uterine scar with extension before onset of labor, delivered documented in this encounter Care Teams Veneer Stock Layer Relationship Specialty Start Date End Date Analisa [place] [address] PCP - General 11/30/22 documented as of this encounter
--- OUTSIDE RECORDS SUMMARY | 2024-07-13 17:44 | XMS_ITS | Encounter Summary ---
Author Organization [facility] Address [address] [place] [address] Care Team Providers Care Photofinishing Laboratory Worker Name Role Phone Lissa Joanna Seals NP Primary Care Provider [phone] Encounter Details Date Type Department Care Team (Latest Contact Info) Description 11/15/[address] Lab Re[address] [facility] Pathology & Laboratory Medicine - [facility] [address] [place] [address] Melody Koenig MD [address] [place] [phone] Encounter for general adult medical examination without [...] Imaging System with Manual Evaluation 11/22/2020 14:16 [facility] Specimen Adequacy Satisfactory for Evaluation - transformation zone component absent 11/22/2020 14:16 [facility] General Categorization Negative for intraepithelial lesion or malignancy 11/22/2020 14:16 [facility] Attestation . 11/22/2020 14:16 [facility] at 1416 Clinical History See below 11/22/19 14:16 [facility] Performing Lab [facility] 11/22/2020 14:16 [facility] Scanned Images 11/22/2020 14:16 [facility] Papanicolaou smear specimen (specimen) CERVIX UTERI STRUCTURE / Unknown 11/15/2020 11:10 EST 11/18/2020 12:23 EST Melody Koenig MD PATHOLOGY ORDERABLES Performing Organization Address City/[facility]/ZIP Co de Phone Number [facility] [address] [place] [address] * CHLAMYDIA/N. GONORRHOEAE AMPLIFIED RNA, THINPREP (11/15/2020 11:10 EST) Neisseria gonorrhoeae Result Negative Negative 11/18/2020 15:23 EST [facility] Chlamydia trachomatis Result Negative Negative 11/18/2020 15:23 EST [facility] Papanicolaou smear specimen (specimen) CERVIX UTERI STRUCTURE / Unknown 11/15/2020 11:10 EST 11/18/2020 8:53 EST Melody Koenig MD MICROBIOLOGY - GENER AL ORDERABLES [facility] [address] [place] [address] documented in this encounter Visit Diagnoses Diagnosis Encounter for general adult medical examination without abnormal findings Unspecified general medical examination Encounter for screening for malignant neoplasm of cervix Screening for malignant neoplasm of the cervix Encounter for gynecological examination (general) (routine) without abnormal findings documented in this encounter Care Teams Photofinishing Laboratory Worker Relationship Specialty Start Date End Date Joanna Alcaraz NP [address] [place] [phone] PCP - General 08/23/19 documented as of this encounter
--- OUTSIDE RECORDS SUMMARY | 2024-07-13 17:44 | XMS_ITS | Encounter Summary ---
Author Organization [facility] Address [facility] [place] [address] Care Team Providers Care Reed Man Name Role Phone Analisa Martinez Primary Care Provider [phone] Encounter Details Date Type Department Care Team (Late st Contact Info) Description 01/17/2023 Telephone Obstetrics [place] [address] Staci Jay MD [facility] [address] OBSTETRICS [place] [address] Social History Tobacco Use Types Packs/Day Years [...] on filedocumented in this encounter Care Teams Reed Man Relationship Specialty Start Date End Date Analisa Martinez PA [address] [place] [address] PCP - General 11/30/22 documented as of this encounter
--- OUTSIDE RECORDS SUMMARY | 2024-07-13 17:44 | XMS_ITS | Encounter Summary ---
Author Organization [facility] Address [address] [place] [address] Care Team Providers Care Inside Plant Supervisor Name Role Phone Joanna Alcaraz NP Primary Care Provider [phone] Encounter Details Date Type Department Care Team (Late st Contact Info) Description 10/29/2022 Lab Requisition [facility] Pathology & Laboratory Medicine - [facility] [address] [place], [place] [address] Outr Resulting Lab, Provider Social History Tobacco [...] documented in this encounter Results * HOLD [facility] (10/29/2022 10:23 EST) Hold Hold 10/29/2022 18:15 [address] [facility] Blood VENOUS BLOOD / Unknown 10/29/2022 10:23 EST 10/29/2022 17:12 EST Provider Outr Resulting Lab LAB INFO SER VICE AND SUPPORT & PHONE RESULT [facility] [address] [place] [address] * HOLD SST (10/29/2022 10:23 EST) Hold Hold 10/29/2022 18:15 [address] [facility] Blood VENOUS BLOOD / Unknown 10/29/2022 10:23 EST 10/29/2022 17:12 EST Provider Outr Resulting Lab LAB INFO SER VICE AND SUPPORT & PHONE RESULT Performing Organization Address [facility]/ZIP Co de Phone Number [facility] [address] [place] [address] * HEPATITIS B SURFACE ANTIGEN (10/29/2022 10:23 EST) Hep B Surface Ag Negative Negative 10/30/2022 9:48 [address] [facility] Blood VENOUS BLOOD / Unknown 10/29/2022 10:23 EST 10/29/2022 17:12 EST Provider Outr Resulting Lab CHEMISTRY & BLOOD GAS ORDERABLES Performing Organization Address City/[facility]/ZIP Co de Phone Number [facility] [address] [place] [address] * HEPATITIS C AB W REFLEX TO HCV RNA BY PCR (10/29/2022 10:23 EST) Hep C Antibody Negative Negative 10/30/2022 10:33 EST [facility] Blood VENOUS BLOOD / Unknown 10/29/2022 10:23 EST 10/29/2022 17:12 EST Provider Outr Resulting Lab CHEMISTRY & BLOOD GAS ORDERABLES Performing Organization Address City/[facility]/ZIP Co de Phone Number [facility] [address] [place] [address] documented in this encounter Visit Diagnoses Not on filedocumented in this encounter Care Teams Inside Plant Supervisor Relationship Specialty Start Date End Date Joanna Alcaraz NP [address] [place] [phone] PCP - General 08/23/19 documented as of this encounter
--- NOTE | 2024-07-19 09:51 | NUR.NOTE ---
Access pt chart to get discharge diagnosis for Surgi Care billing form. Nursing Note:
== END 2024-07-13 19:14 | disposition home or self-care (01) ==
PROVIDERS: Emergency Provider Physician Assistant; PCP Family Medicine
DX: M23.8X1 Other internal derangements of right knee (principal); F17.210 Nicotine dependence, cigarettes, uncomplicated; W18.39XA Other fall on same level, initial encounter; Y93.89 Activity, other specified; Y92.218 Other school as the place of occurrence of the external cause; Y99.0 Civilian activity done for income or pay
CPT/HCPCS: 73562; 99283

== ENCOUNTER 2024-08-08 11:52 | Emergency (ER) | payer MEDICAID, SELFPAY ==
[2024-08-08] VITALS (9 sets, daily range): BP systolic 116–137; BP diastolic 63–88; PULSE 68–85; RESP 18; TEMP 36.4–36.6; O2SAT 96–99
--- OUTSIDE RECORDS SUMMARY | 2024-08-08 11:59 | XMS_ITS | Encounter Summary ---
Author Organization [facility] Address [facility] [place] [address] Care Team Providers Care Sterile Proc Tech Name Role Phone Analisa Martinez Primary Care Provider [phone] Encounter Details Date Type Department Care Team (Late st Contact Info) Description 05/24/2023 Orders Only Obstetrics [place] [address] Nitza Murguia MD [facility] [place] [address] Jenn infection Social History Tobacco Use Types [...] place to sleep or slept in a detention (including now)? No 05/21/2023 DH IPV Inpatient [...] site documented in this encounter Care Teams Sterile Proc Tech Relationship Specialty Start Date End Date [place]isa [place] [address] PCP - General 11/30/22 documented as of this encounter
--- OUTSIDE RECORDS SUMMARY | 2024-08-08 11:59 | XMS_ITS | Encounter Summary ---
Author Organization [facility] Address [facility] [place] [address] Care Team Providers Care Field Sales Consultant Name Role Phone Analisa Martinez Primary Care Provider [phone] Encounter Details Date Type Department Care Team (Late st Contact Info) Description 05/26/2023 Telephone Obstetrics [place] [phone] Vilma Collins MD [facility] OBSTETRICS [place] [address] Social History Tobacco Use Types Packs/Day Years [...] place to sleep or slept in a mcc (including now)? No 05/21/2023 DH IPV Inpatient [...] mouth documented in this encounter Care Teams Field Sales Consultant Relationship Specialty Start Date End Date Analisa Martinez PA [address] [place] [address] PCP - General 11/30/22 documented as of this encounter
--- OUTSIDE RECORDS SUMMARY | 2024-08-08 11:59 | XMS_ITS | Encounter Summary ---
[place] [address] Care Team Providers Care Set Up Worker Name Role Phone Analisa Martinez Primary Care Provider [phone] Encounter Details Date Type Department Care Team (Late st Contact Info) Description 05/31/2023 Telephone Obstetrics [place] [address] Sharla Garvey MD [address] [place] [address] [place] [id number] Social History Tobacco Use Types Packs/Day Years [...] Garvey MD - 05/31/2023 1:43 PM EDT Research Coordinator Telephone Note Patient ID: Isabel Julian is a 27 y.o. . Pt is s/p RCS and BS 04/12/2023. Pt confirmed by full name and . Pt states she was told by [facility] to call and notify [facility] that she had some back pain and that she went to [facility] and is now being treated for a PE following CT. Said she was told she has clots in the bottom of her left lung. She is on Lovenox 130 mg daily x 3 mo. She weights 190lbs. She has a PCP and Airplane Patrol Pilot whom she will see tomorrow. Diagnosis added to pt chart. As pt is establishing care w/ PCP and Airplane Patrol Pilot, discussed that these are appropriate for management. Reviewed warning signs to present to closest ED (SOB, chest pain, concerns). Sharla Garvey MDY PGY4 documented in this encounter Plan of Treatment Not on file documented as of this encounter Visit Diagnoses Diagnosis Other acute pulmonary embolism with acute cor pulmonale documented in this encounter Care Teams Set Up Worker Relationship Specialty Start Date End Date Analisa Martinez PA [address] [place] [address] PCP - General 11/30/22 documented as of this encounter
--- OUTSIDE RECORDS SUMMARY | 2024-08-08 11:59 | XMS_ITS | Encounter Summary ---
[place] [address] Care Team Providers Care Wholesale Account Manager Name Role Phone Analisa Martinez Primary Care Provider [phone] Encounter Details Date Type Department Care Team (Late st Contact Info) Description 05/26/2023 Telephone Obstetrics [place] [address] Loida Hall, RN Social History [...] treating nipple thrush, is considered safe by [facility] and is the recommended by [facility] for treatment of nipple thrush. Understands that cream needs to be wiped off before feeding and states that is cluster-feeding. Would like to have the pills again that she was prescribed before leaving the [facility]. States she was treated with fluconazole 200mg [...] on filedocumented in this encounter Care Teams Wholesale Account Manager Relationship Specialty Start Date End Date Analisa Martinez PA [address] [place] [address] PCP - General 11/30/22 documented as of this encounter
--- OUTSIDE RECORDS SUMMARY | 2024-08-08 11:59 | XMS_ITS | Encounter Summary ---
[place] [address] Care Team Providers Care Station Manager Name Role Phone Analisa Martinez Primary Care Provider [phone] Encounter Details Date Type Department Care Team (Latest Contact Info) Description 05/05/2023 10:30 AM EDT Clinical Support Obstetrics [place] [address] At risk for ineffective Social [...] Center. Recommended that she contact her local [facility] office with assistance to get a personal pump through [place] Medicaid. [facility] Office with Support [phone] Currently pumping with a hand pump and hand expression. Pumping around 4-5 ounces each pumping session, was pumping 8 ounces at each pumping session. Annia is getting frustrated at the breast due to flow of milk after spending 2 weeks in the ICN. Suggested a [employer]. Offered to schedule an outpatient appointment. Did not want to commit at this time to an appointment. Verbalized that she will call Services to schedule an appointment if she is not able to connect with help at the [facility] office in [facility]. [phone] Services at [facility] documented in this encounter Plan of Treatment Not on file documented as of this encounter Visit Diagnoses Diagnosis At risk for ineffective documented in this encounter Care Teams Station Manager Relationship Specialty Start Date End Date Analisa Martinez PA [address] [place] [address] PCP - General 11/30/22 documented as of this encounter
--- OUTSIDE RECORDS SUMMARY | 2024-08-08 11:59 | XMS_ITS | Encounter Summary ---
[place] [address] Care Team Providers Care Director Of Nuclear Medicine Name Role Phone Analisa Martinez Primary Care Provider [phone] Encounter Details Date Type Department Care Team (Late st Contact Info) Description 05/24/2023 Telephone [place]stetrics [place] [address] Macarena Priest, RN Social History [...] 05/24/2023 4:42 PM EDT Isabel Julian 6wPP [facility] Reason for call: thrush Pt reports that her daughter's transmission tester diagnosed the baby with thrush - pt states her baby is getting treated with nystatin, she would like treatment as well. Denies pain or cracking at nipples,they are a little red and it hurts when she latches. I stated I would reach out to [facility] sheet metal production worker, but that clinic is closing soon and [...] on filedocumented in this encounter Care Teams Director Of Nuclear Medicine Relationship Specialty Start Date End Date [place] [address] PCP - General 11/30/22 documented as of this encounter
--- OUTSIDE RECORDS SUMMARY | 2024-08-08 11:59 | XMS_ITS | Encounter Summary ---
Author Organization [facility] Address [facility] [place] [address] Care Team Providers Care Business Continuity Management Director Name Role Phone Analisa Martinez Primary Care Provider [phone] Encounter Details Date Type Department Care Team (Latest Contact Info) Description 05/24/2023 1:45 PM EDT Visit Obstetrics [place] [phone] Nitza Murguia MD [facility] OBSTETRICS [place] [address] care and examination; Separation of wound with [...] place to sleep or slept in a senior living (including now)? No 05/21/2023 DH IPV Inpatient [...] mg by mouth daily. vitamin 27 & obxsquw-gfls-NW 60 mg iron-1 mg Tablet Take 1 [...] wound, documented in this encounter Care Teams Business Continuity Management Director Relationship Specialty Start Date End Date Analisa Martinez PA [address] [place] [address] PCP - General 11/30/22 documented as of this encounter
--- OUTSIDE RECORDS SUMMARY | 2024-08-08 11:59 | XMS_ITS | Encounter Summary ---
Author Organization [facility] Address [facility] [place] [address] Care Team Providers Care Brattice Builder Name Role Phone Analisa Martinez Primary Care Provider [phone] Encounter Details Date Type Department Care Team [...] place to sleep or slept in a skilled nursing (including now)? No 05/21/2023 DH IPV Inpatient [...] on filedocumented in this encounter Care Teams Brattice Builder Relationship Specialty Start Date End Date Analisa Martinez PA [address] [place] [address] PCP - General 11/30/22 documented as of this encounter
--- OUTSIDE RECORDS SUMMARY | 2024-08-08 11:59 | XMS_ITS | Encounter Summary ---
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 I reviewed resources available here at [facility] if she is ever feeling like she cannot manage things, pt verbalizedunderstanding. No questions at this time. documented in this encounter Plan of Treatment Not on file documented as of this encounter Visit Diagnoses Not on filedocumented in this encounter Care Teams Suppression Crew Leader Relationship Specialty Start Date End Date Analisa Martinez PA [address] [place] [address] PCP - General 11/30/22 documented as of this encounter
--- OUTSIDE RECORDS SUMMARY | 2024-08-08 11:59 | XMS_ITS | Encounter Summary ---
Author Organization [facility] Address [facility] [place] [address] Care Team Providers Care Healthcare Facility Administrator Name Role Phone Analisa Martinez Primary Care Provider [phone] Encounter Details Date Type Department Care Team [...] on filedocumented in this encounter Care Teams Healthcare Facility Administrator Relationship Specialty Start Date End Date Analisa Martinez PA [address] [place] [address] PCP - General 11/30/22 documented as of this encounter
--- OUTSIDE RECORDS SUMMARY | 2024-08-08 11:59 | XMS_ITS | Encounter Summary ---
Author Organization [facility] Address [facility] [place] [address] Care Team Providers Care Helmet Hat Puncher Name Role Phone Analisa Martinez Primary Care Provider [phone] Encounter Details Date Type Department Care Team (Late st Contact Info) Description 05/27/2023 Orders Only Obstetrics [place] [phone] Nitza Murguia MD [facility] OBSTETRICS [place] [address] Social History Tobacco Use Types Packs/Day Years [...] place to sleep or slept in a fci (including now)? No 05/21/2023 DH IPV Inpatient [...] on filedocumented in this encounter Care Teams Helmet Hat Puncher Relationship Specialty Start Date End Date [place] [address] PCP - General 11/30/22 documented as of this encounter
--- OUTSIDE RECORDS SUMMARY | 2024-08-08 11:59 | XMS_ITS | Clinical Summary ---
Author Organization [facility] Address [facility] [place] [address] Care Team Providers Care Seat Cover Cutter Name Role Phone Analisa Martinez Primary Care Provider [phone] Allergies Active Allergy Reactions Criticality Noted Date Comments Latex, Natural Rubber Rash 11/06/2022 Penicillins 11/06/2022 Varicella Vaccines Hives 11/26/2022 Medications Medication Sig Dispensed Refills Start Date End Date Status miconazole (Micotin) 2 % CreamIndications:Cand junie infection Apply topically 2 times daily. 14 g 05/24/2023 Active Active Problems Problem Noted Date Diagnosed Date Pulmonary embolus 05/31/2023 Overview (05/31/2023): Please see 05/31/2023 Home Demonstration Agent Telephone Note: Pt states she was told by [facility] to call and notify [facility] that she had some back pain and that she went to [facility] and is now being treated for a PE following CT. Said she was told she has clots in the bottom of her left lung. She is on Lovenox 130 mg daily x 3 mo. She weights 190lbs. She has a PCP and Market Research Analyst whom she will see tomorrow. Resolved Problems [...] place to sleep or slept in a longterm (including now)? No 05/21/2023 DH IPV Inpatient [...] Status decision made by: Patient Care Teams Seat Cover Cutter Relationship Specialty Start Date End Date Analisa Martinez PA [address] [place] [address] PCP - General 11/30/22
--- OUTSIDE RECORDS SUMMARY | 2024-08-08 11:59 | XMS_ITS | Encounter Summary ---
Author Organization [facility] [place] [address] Care Team Providers Care Candle Making Supervisor Name Role Phone Analisa Martinez Primary Care Provider Encounter Details Date Type Department Care Team (Late st Contact Info) Description 05/20/2023 Telephone Obstetrics [place] [address] Jody Arora Social History Tobacco [...] place to sleep or slept in a care home (including now)? No 05/21/2023 DH IPV [...] on filedocumented in this encounter Care Teams Candle Making Supervisor Relationship Specialty Start Date End Date Analisa Martinez [place] [address] PCP - General 11/30/22 documented as of this encounter
--- OUTSIDE RECORDS SUMMARY | 2024-08-08 11:59 | XMS_ITS | Encounter Summary ---
Author Organization [facility] Address [facility] [place] [address] Care Team Providers Care Gutter Mouth Cutter Name Role Phone Analisa Martinez Primary Care Provider [phone] Reason for Visit * Reason Comments Follow-up Encounter Details Date Type Department Care Team (Late st Contact Info) Description 05/05/2023 10:00 AM EDT Office Visit Obstetrics [place] [address] Sophie Scanlon MD [facility] DR OBSTETRICS [place] [address] Separation of wound with drainage, (Primary Dx); Surgical wound infection Social History Tobacco Use Types Packs/Day Years Used Date Smoking Tobacco: Every Day Cigarettes Smokeless Tobacco: Never Comments:Cut back from 2 pac ks Alcohol Use Standard Drinks/Week Comments Not Currently 0 (1 standard drink = 0.6 oz pur e alcohol) [facility] Inpatient Questions Answer Date Recorded [...] 16.13) performed by Mary Headley MD at [facility] PRO LIGATE FALLOPIAN TUBE, N/A 04/12/2023 @FALLOPIAN TUBE(S), TRANSECTION OR LIGATION, ABD APPROACH, POST- (WRVU 5.28) performed by Mary Headley MD at [facility] Family History Problem Relation [...] hours. 60 tablet 0 vitamin 27 & hmwniqq-wxgq-NR 60 mg iron-1 mg Tablet Take 1 [...] infection documented in this encounter Care Teams Gutter Mouth Cutter Relationship Specialty Start Date End Date Analisa Martinez PA [address] [place] [address] PCP - General 11/30/22 documented as of this encounter
--- OUTSIDE RECORDS SUMMARY | 2024-08-08 12:00 | XMS_ITS | Encounter Summary ---
Author Organization [facility] Address [facility] [place] [address] Care Team Providers Care Automotive Shop Foreman Name Role Phone Analisa Martinez Primary Care Provider [phone] Encounter Details Date Type Department Care Team [...] filedocumented in this encounter Care Teams Automotive Shop Foreman Relationship Specialty Start Date End Date Analisa Martinez PA [address] [place] [address] PCP - General 11/30/22 documented as of this encounter
--- OUTSIDE RECORDS SUMMARY | 2024-08-08 12:00 | XMS_ITS | Encounter Summary ---
Author Organization [facility] Address [facility] [place] [address] Care Team Providers Care Police Judge Name Role Phone Analisa Martinez Primary Care Provider [phone] Encounter Details Date Type Department Care Team [...] on filedocumented in this encounter Care Teams Police Judge Relationship Specialty Start Date End Date Analisa [place] [address] PCP - General 11/30/22 documented as of this encounter
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
--- OUTSIDE RECORDS SUMMARY | 2024-08-08 12:00 | XMS_ITS | Encounter Summary ---
Author Organization [facility] Address [place] [address] Care Team Providers Care Deep Fryer Assembler Name Role Phone Analisa Martinez Primary Care Provider [phone] Encounter Details Date Type Department Care Team [...] weight loss: -6% MATERNAL INFO: Isabel Julian [id number] G 4 P 3 Significant History: Previous experience: None--first-time Breast Surgery: No Breast Changes During : Yes Breast Exam : Size: X large Shape: Round Venous Pattern: Within Normal Limits Milk Production: Normal pumped over 500 ml in last 24 hours Full Firm Engorged Nipple Exam : Normal large in diameter Color: [place] Compressible: Yes Trauma: no pain or trauma [...] first before introducing a bottle Optimal positioning: Rxpb-lm-aksogl positioning Vfrx-np-bjcdq technique Nutritive vs non-nutritive sucking Breast massage [...] education and recommendations. ,Analisa Shepard RN IBCLC [facility] documented in this encounter Plan of Treatment Not on file documented as of this encounter Visit Diagnoses Not on filedocumented in this encounter Care Teams Deep Fryer Assembler Relationship Specialty Start Date End Date Analisa Martinez PA [address] [place] [address] PCP - General 11/30/22 documented as of this encounter
--- OUTSIDE RECORDS SUMMARY | 2024-08-08 12:00 | XMS_ITS | Encounter Summary ---
Author Organization [facility] [address] Care Team Providers Care Jewellery Designer Name Role Phone Analisa Martinez Primary Care Provider [phone] Encounter Details Date Type Department Care Team (Late st Contact Info) Description 04/26/2023 Telephone Obstetrics [place] [phone] Helene Omer MD [facility] DR OBSTETRICS & [place] [address] Social History Tobacco Use Types Packs/Day Years [...] on filedocumented in this encounter Care Teams Jewellery Designer Relationship Specialty Start Date End Date Analisa Martinez PA [address] [place] [address] PCP - General 11/30/22 documented as of this encounter
--- OUTSIDE RECORDS SUMMARY | 2024-08-08 12:00 | XMS_ITS | Encounter Summary ---
[place] [address] Care Team Providers Care Information Assistant Name Role Phone Analisa Martinez Primary Care Provider [phone] Reason for Visit * Auth/Cert (Routine) Specialty Diagnoses / Procedures Referred By Contac t Referred To Contact Diagnoses prrior with window Procedures PRO DELIVERY ONLY ER OBSVO Sujata Prater MD [facility] DR OBSTETRICS [place] [address] [facility] Referral ID Status Reason Start Date Expiration Date Visits Re quested Visits Authorized [id number] 1 1 Encounter Details Date Type Department Care Team (Latest Contact Info) Description 04/12/2023 10:19 AM EDT - 04/15/2023 4:16 PM EDT [place] [id number] Mary Headley MD Dehiscence of old uterine [...] Denise Julian Patient Age: 27 y.o. Language: Senegalese Race: White Ethnicity: Not nor Admit date: 04/12/2023 Discharge date and time: 04/15/2023 Attending Physician: Mary Headley MD Discharge Physician: Dr. Fide Haas Care Provider: [facility] Referring Hospital: N/A Follow-up Recommendations for Providers: - 2 week mood check - 6 week visit Inpatient Provider Contact Information: [facility] MANUFACTURING ELECTRICIAN Department, Discharge Diagnoses (Hospital Problems) and Secondary [...] for the patient's : Rajesh Julian Girl [[id number]] INFORMATION Rajesh Julian 04/12/2023 4:21 PM by Lower Segment Transverse Sex: female Gestational Age: 36w2d [facility] Measurements: Weight: 6 lb 5.9 oz (2890 [...] as: Protonix Refills: 0 vitamin 27 & gwravbx-[id number]-KI 60 mg iron-1 mg Tablet Take 1 [...] Instructions: Scheduling Instructions: Comments: Denise Julian [address] [place] [address] [facility] [id number] Infant's : 04/12/23 Insurance: [place] Pay[place] Plan Address Payor Plan Phone Number Payor Plan Fax Number Effective Dates [address] 01/25/2023 - None Entered [facility] [phone] Subscriber Name Subscriber Date Member ID DENISE JULIAN [id number] [employer] # [phone] Symphony breast pump [id number] Length of need: [...] not provide sufficient milk for this baby. [facility] NPI #: [id number] DE[facility] OF [facility] [place] MEDICAID MEDICAL NECESSITY FORM (MNF) ORTHOTICS, PROSTHETICS, MEDICAL SUPPLIES & EQUIPMENT All claims for supplies and equipment require a written order. Orders must be signed by a physician, physician night assistant, or nurse practitioner. All home health [...] or on other documentation submitted to the [facility] and DXC. The codes submitted to [facility] and DXC must matchthe description documented by the ordering provider. All orders must adhere to state and federal rules and regulations. [place] Medicaid Rules can be found online at [email or web address]-vgukg. Section A: (must be completed or reviewed and signed by ordering provider) Beneficiary's name: Denise Julian Medicaid ID#: [place] Pay[place] Plan Address Payor Plan Phone Number Payor Plan Fax Number Effective Dates [facility] 888 01/25/2023 - None Entered [facility] [address] Subscriber Name Subscriber Date Member ID DENISE JULIAN 1995 [id number] Diagnoses: born at 36 weeks 2 days [...] address: Please see ordering physician signature below. [facility], [address] [place] [address], [place] [address] 6. Ordering provider's signature: Please see order [...] identified in the Provider Manual, available at: [email or web address]. For exceptions, an MNF must be kept on file by the DME supplier. Prior Authorization: The DME supplier must include a copy of an MNF with every Prior Authorization request. Fax the MNF and any other supporting documents to the [facility] at . Use of this [facility] Medical Necessity Form is recommended for all prior authorization requests to ensure timely processing. Medicaid may request a copy of the medical record upon audit. *INSTRUCTIONS FOR SECTIONS A & B* Section A must be completed or reviewed, signed, and dated by the ordering physician/physician night assistant/nurse practitioner. Section B must be completed [...] must appear on other documentation submitted to [facility] for PA and to [facility] for billing), medical necessity rationale, expected length of need (will be interpreted as months unless stated otherwise), and the number ofitems needed (for example: 2 bottles of sterile saline per month). NOTE: If the quantity ordered ismore than the number allowed (based on customary usage and as listed in the [facility] DME Restriction list, available at: http://[email or web address].[place].gov/for-providers/eeubqqxn-stvlszpq-ofcdygtsfm), an explanation from the physician is required. [...] Hospital grade rental pump Size requested: Follow-up [[id number] Custom] As directed Process Instructions: Scheduling Instructions: Comments: - gestational diabetic counseling with certified breastfeeding educator at the time of the visit [...] aware, opioid use is a concern in [place] and [place]. We recommend that families with any member [...] overwhelmed. Emergency Resources National Suicide Hotlines: or [place]: Call/Text [facility] Mental Health Crisis Hotline: Call/Text [facility] Mental Health Hotline: Call/Text Call your doctor or stable hand for: Seizure (call 911) Headache which isn't [...] prior to you follow up appointment. Your [facility] Provider can be reached during office hours at [facility] AFTER OFFICE HOURS for the linseed cake trimmer or stable hand energy conservation technician Post- Warning Signs Most women who give [...] by mouth daily. 05/24/2023 vitamin 27 & yssecrd-kgig-MB 60 mg iron-1 mg Tablet Take 1 [...] for the patient's : Young, Baby Girl [[id number]] Delivery Date and Time:04/12/2023 4:21 PM Delivery [...] MSW - 04/14/2023 3:36 PM EDT [facility] Social Work Note Patient: DENISE JULIAN [...] needed/desired by patient. TITO Melo Pronouns: She/Her [facility] [email or web address] Pager: [phone] [email or web address] [facility] Children[facility] * Trina Bravo MD - 04/14/2023 [...] notes she is burping. Pumping colostrum for infant in ICN. O: Last value Range last [...] mg by mouth daily. vitamin 27 & wewjsax-ecbw-SU 60 mg iron-1 mg Tablet Take 1 [...] 135, Variability: moderate, Accels: yes, Decels: none, [place]: none Lab Results Component Value Date ABORH [...] seen and discussed with Dr. Headley, Attending MANUFACTURING ELECTRICIAN. Vicente Zhang MD, PGY3 Obstetrics and Gynecology [...] was weaned slightly. Analisa Shepard RN, IBCLC [facility] Services * Plan of Care - Cathy [...] weight loss: -4% MATERNAL INFO: Denise Julian [id number] 1995 G 4 P 3 Significant History: [...] ice packs after pumping X 48 hours [place] oil to nipples prior to pumping Frequent [...] education and recommendations. Analisa Shepard RN, IBCLC [facility] Services * Note - Jannette Lorenz RN [...] pump. She has rented one via the [employer]. She is sized to a 24 mm flange. We discussed pumping techniques. RECOMMENDATIONS: Breast massage and hand expression before and during pumping [place] oil to nipples prior to pumping Pump [...] Betzy / Jennifer Ramírez Initial Assessment This copy writer introduced self and reviewed role; services were accepted. Patient Name: Denise Young Child's Legal Name (if applicable): Annia Beauchamp Opalsharon Source of Information: Chart Review and patient interview Initial Assessment for: Mother / Infant Couplet Was Conifer contacted to update information? No Home Address confirmed as: [address] [facility] [address] Verified Phone Numbers confirmed as: Extended Emergency Contact Information Primary Emergency Contact: Carl Prakash Address: [address] [place] [address] [place] Relation: Clotilde Primary Care Provider listed as: BRIDGETT Turner /Child PCP, if different: Will be Dr. Lloyd Chamberlain, [facility] Reason for Hospitalization: Patient Active [...] room mate, older children with grandparents in [place]. Housing for family / support system while patient admitted to [facility] [place]: Rooming [facility], Information regarding [facility] given Nutrition Food: Secure Current Nutrition of Patient: PO - regular diet Breast pump needs: Hospital grade breast pump rental provided (Given rental pump number [id number], approved by Brianna holliday [facility]) Social and Community Resources: Patient is not employed. Her partner, Carl Prakash, is employed PTas a sales representative door to door for [employer]). Transportation Baseline Transportation: Personal Vehicle Transportation at Discharge: Personal Vehicle - Family / Friend to drive Current Patient / Caregiver Coping: coping okay, teary at times Child Life Consult Needed for Other Children in the Home / Family: declined COLORING MACHINE OPERATOR Consult Needed: possibly Health Coverage confirmed as: [place] Pay[place]: [place] / Plan: [place] / Product Type: *No Product type* / N/A Infant patient to be added to above insurance plan: Yes Prescription Coverage: Yes Preferred Pharmacy: [facility] [address] [place], [place] - [address] [place] [phone] Anticipated Barriers to Discharge / Special Considerations: no Plan: Patient to discharge to [facility] when medically stable. Follow up with OB team. Infant to discharge home with PCP and VNA follow up. sheet metal shop foreman / COLORING MACHINE OPERATOR remain available as needed for coordination of [...] note for further details. Dr. Headley, attending Editor At Large, present for entire delivery without conflicting clinical responsibilities. Maria Teresa Dhillon MD, PGY4 Obstetrics and Gynecology Information for the patient's : Eliel, Baby Girl [[id number]] DELIVERY SUMMARY FOR Baby Girl Young (please [...] QBL Anesthesia 880 mL Total 880 Delivery ([facility]) Delivery Date: 04/12/23 Delivery Time: 4:21:00 PM Sex: Female Presentation: Vertex Attempted ?: No Delivery Type: Classification: scheduled Delivery Type (Specific): Lower Segment Transverse Shoulder Dystocia Shoulder dystocia present?: No Delivery Information Delivery Location: OR Delivering Clinician: Vicente Zhang MD [facility] Staff Present: Yes Other Personnel: Provider Role Chandrika Elmore, tower cleaner Nurse Mary Headley MD Supervisor Stone Tami Victor, tower cleaner Assist Maria Teresa Dhillon MD Resident Navya Martinez, [facility] Anesthesia Method: Combined Spinal/Epidural Cord [...] PPV intermittently for ~30 minutes. Transferred to [facility] and placed on Bubble CPAP adjusting to CPAP of 7, 25-35% FiO2. (per respiratorynote) Maternal [facility] Feeding and Skin to Skin Maternal Choice for (s) Feeding on Admission: Reason skin to skin not initiated: Acuity [facility] Medications Medications Given: vitamin K, erythromycin Measurements [...] Operative Note Patient Name: Denise Julian : [id number] MR#: [id number] Case Date: 04/12/2023 Surgeon: Surgeon(s) and Role: [...] Dhillon MD - 04/12/2023 3:45 PM EDT [facility] Operative Note Patient Name: Denise Julian : [id number] MR#: [id number] Case Date: 04/12/2023 Surgeon: Surgeon(s) and Role: [...] There was no imbricating layer, however several hxmrzh-td-jxdqzb were placed over the hysterotomy after which [...] 04/12/2023 5:52 PM EDT FALLOPIAN TUBE(S)\LIGATION\TRANS ECTION\ POST-\ABD\CLICKER OPERATOR Routine 04/12/2023 3:27 PM EDT Dehiscence of old uterine scar with extension before onset of labor, delivered [place] Fallopian Tube, ([id number]) 04/12/2023 3:02 PM EDT Dehiscence of old uterine scar with extension before onset of labor, delivered Delivery Only ([id number]) 04/12/2023 3:02 PM EDT Dehiscence of old [...] 3:10 PM EDT) Syphilis IgG/IgM Negative Negative [facility] Blood 04/13/2023 3:10 PM EDT 04/13/2023 3:36 PM EDT Narrative Resulting Agency Comment Spec In Lab Mary Headley MD CHEMISTRY ORDERABLE S [facility] [place] [address] * (ABNORMAL) Differential, Automated (04/13/2023 5:15 AM EDT) Neutrophil % 84.2 % [facility] Neutrophil Absolute 15.69(H) 1.70 - 6.10 x10(3)/mc L [facility] Lymph % 7.7 % [facility] Lymphocytes Abs 1.4 0.9 - 3.2 x10(3)/mc L [facility] Monocyte % 7.1 % [facility] Monocyte Abs 1.3(H) 0.3 - 0.9 x10(3)/mc L [facility] Eos % 0.0 % [facility] Eosinophils Abs 0.0 0.0 - 0.4 x10(3)/mc L [facility] Basophil % 0.2 % [facility] Baso Absolute 0.0 0.0 - 0.1 x10(3)/mc L [facility] Immature Gran % 0.80 % [facility] Comment: Immature granulocytes(IG's)percentage and absolute count will include metamyelocytes, myelocytes, and promyelocytes. Blood smears from CBCs yielding IG's will be scanned manually for concordance. If this scan disagrees with the automated IG or if promyelocytes are noted, a manual differential will be performed. Immature Gran Absolute 0.14(H) 0.00 - 0.04 x10(3)/mc L [facility] Blood 04/13/2023 5:15 AM EDT 04/13/2023 5:23 AM EDT Narrative Resulting Agency Comment Spec In Lab Jocelin Mariscal MD HEMATOLOGY ORDERABLE S Performing Organization Address City/[facility]/ZIP Co de Phone Number [facility] [place] [address] * (ABNORMAL) Hemogram (04/13/2023 5:15 AM EDT) White Blood Cell 18.6(H) 4.0 - 9.5 x10(3)/mc L [facility] Red Blood Cell 3.55(L) 4.00 - 5.21 x10(6)/[facility] Hemoglobin 10.4(L) 11.7 - 15.5 g/dL [facility] Hematocrit 30.2(L) 35.7 - 45.8 % [facility] Mean Cell Volume 85.1 82.6 - 94.4 fL [facility] Mean Cell Hemoglobin 29.3 27.1 - 32.0 pg [facility] Mean Cell Hemoglobin Concentration 34.4 31.7 - 35.0 g/dL [facility] Platelet 137(L) 145 - 357 x10(3)/mc L [facility] RDW Standard Deviation 41.2 37.0 - 46.0 fL [facility] RDW coefficient of variation 13.2 11.5 - 14.1 % [facility] Mean Platelet Volume 13.2(H) 7.6 - 12.9 fL [facility] NRBC% auto 0.0 % [facility] NRBC Absolute 0.000 0.000 - 0.000 x10(3)/mc L [facility] Blood 04/13/2023 5:15 AM EDT 04/13/2023 5:23 AM EDT Narrative Resulting Agency Comment Spec In Lab Jocelin Mariscal MD HEMATOLOGY ORDERABLE S Performing Organization Address City/[facility]/ZIP Co de Phone Number [facility] [place] [address] * POCT Glucose (04/12/2023 11:35 PM EDT) Glucose, POC 129 65 - 199 mg/dL [facility] Comment: Supplemental ranges: <140 mg/dL before meals <180 mg/dL all other times of the day Blood 04/12/2023 11:3 5 PM EDT 04/12/2023 11:35 PM EDT Mary Headley MD POINT OF CARE TEST ORDERABLES Performing Organization Address [facility] Co de Phone Number [facility] [place] [address] * Specimen to Pathology (04/12/2023 5:53 PM EDT) AP Specimen 04/12/2023 5:53 PM EDT 04/12/2023 5:53 PM EDT Narrative [facility] - 04/12/2023 5:53 PM EDT Specimen requisition ordered. ??Separate Pathology report to follow Mary Headley MD PATHOLOGY/CYTOLOGY ORDERABLES Performing Organization Address [facility] Co de Phone Number [facility] [place] [address] * Specimen to Pathology (04/12/2023 5:53 PM EDT) AP Specimen 04/12/2023 5:53 PM EDT 04/12/2023 5:53 PM EDT Narrative [facility] - 04/12/2023 5:53 PM EDT Specimen requisition ordered. ??Separate Pathology report to follow Mary Headley MD PATHOLOGY/CYTOLOGY ORDERABLES Performing Organization Address [facility] Co de Phone Number [facility] [place] [place] [address] * Surgical Pathology Report (04/12/2023 5:52 PM EDT) Final Diagnosis [id number] ? Location: BP; BP05; A The signing [...] Obrien Verified: ??04/19/2023 10:37 ??Pathologist Performed at: ??-[facility] Dept. of Pathology, [place] [address] Health Counselor: Mahendra Turcios MD, FCAP, ??CLIA Certificate: [id number] SPECIMEN(S) SUBMITTED A - Placenta B - [...] formed cotyledons. Parenchyma: Boggy, purple-red. Sections/Processi ng: Spark Tester sections in 8 cassettes as follows: ?A1: ??Membrane roll ?A2: ??Proximal and distal cord ?A3-A8: ??Full thickness parenchyma, bisected B - Labeled/Fixative: ?? Bilateral fallopian tubes , formalin. Tissue Description: Intact, bilateral salpingectomy. . SPECIMEN PROCESSING Fallopian Tube 1: 12.0 x 0.9 cm, fimbriated. Fallopian Tube 2: 9.8 x 0.9 cm, fimbriated. Sections/Processi ng: Spark Tester sections in 4 cassettes as follows: ?B1: ??Fallopian tube 1 fimbria ?B2: ??Fallopian tube 1 cross sections ?B3: ??Fallopian tube 2 fimbria ?B4: ??Fallopian tube 2 cross sections ??ajw 04/19/2023 10:37 AM EDT [facility] TISSUE SPECIMEN FROM PLACENTA / Unknown 04/12/2023 5:52 PM EDT 04/12/2023 5:52 PM EDT False Vocal Cords, Bilateral 04/12/2023 5:52 PM EDT 04/12/2023 5:52 PM EDT Vicente Zhang MD PATHOLOGY/CYTOLOGY O RDERABLES Performing Organization Address City/[facility] Co de Phone Number [facility] [place] [address] [facility] [place] [address] * Group B Streptococcus Screen (04/12/2023 2:06 PM EDT) GBS Screen Neg [facility] Vaginal/Rectal 04/12/2023 2: 06 PM EDT 04/12/2023 3:32 PM EDT Comment:Penicillin Allergy?- >Yes Narrative Resulting Agency Comment Spec In Lab Vicente Zhang MD MICROBIOLOGY - GENER AL ORDERABLES Performing Organization Address City/[facility]/[place] [address] * Group B Strep Culture Screen (04/12/2023 2:06 PM EDT) Pathologist [facility] Group B Streptococcus Culture No Group B Streptococci isolated [facility] Vaginal/Rectal 04/12/2023 2: 06 PM EDT 04/12/2023 3:32 PM EDT Comment:Penicillin Allergy?- >Yes Narrative Resulting Agency Comment Spec In Lab Mary Headley MD MICROBIOLOGY - GENE RAL ORDERABLES Performing Organization Address City/[facility]/[place] [address] * Type and Screen Validity (04/12/2023 12:00 PM EDT) Pathologist [facility] T&S only valid at [facility] LABORATORY Comment:This Type and Screen result is only valid at the [facility] Hospital Blood 04/12/2023 12:0 0 PM EDT 04/12/2023 12:15 PM EDT Narrative Resulting Agency Comment Spec In Lab Vicente Zhang MD BLOOD BANK LAB ORDER SHABNAM Performing Organization Address [facility] [place] [place] [address] * ABORH Recheck Status (04/12/2023 12:00 PM EDT) Pathologist [facility] ABORH Type Recheck Completed [facility] Blood 04/12/2023 12:0 0 PM EDT 04/12/2023 12:15 PM EDT Narrative Resulting Agency Comment Spec In Lab Vicente Zhang MD BLOOD BANK LAB ORDER SHABNAM Performing Organization Address [facility]/[place] [address] * (ABNORMAL) Differential, Automated (04/12/2023 12:00 PM EDT) Neutrophil % 72.7 % [facility] Neutrophil Absolute 7.47(H) 1.70 - 6.10 x10(3)/mc L [facility] Lymph % 19.0 % [facility] Lymphocytes Abs 2.0 0.9 - 3.2 x10(3)/ L [facility] Monocyte % 6.3 % [facility] Monocyte Abs 0.6 0.3 - 0.9 x10(3)/ L [facility] Eos % 0.5 % [facility] Eosinophils Abs 0.0 0.0 - 0.4 x10(3)/[facility] Basophil % 0.4 % [facility] Baso Absolute 0.0 0.0 - 0.1 x10(3)/ L [facility] Immature Gran % 1.10 % [facility] Comment: Immature granulocytes(IG's)percentage and absolute count will include metamyelocytes, myelocytes, and promyelocytes. Blood smears from CBCs yielding IG's will be scanned manually for concordance. If this scan disagrees with the automated IG or if promyelocytes are noted, a manual differential will be performed. Immature Gran Absolute 0.11(H) 0.00 - 0.04 x10(3)/ L [facility] Blood 04/12/2023 12:0 0 PM EDT 04/12/2023 12:17 PM EDT Narrative Resulting Agency Comment Spec In Lab Vicente Zhang MD HEMATOLOGY ORDERABLE S [facility] [place] [address] * (ABNORMAL) Hemogram (04/12/2023 12:00 PM EDT) White Blood Cell 10.3(H) 4.0 - 9.5 x10(3)/ L [facility] Red Blood Cell 3.85(L) 4.00 - 5.21 x10(6)/[facility] Hemoglobin 11.0(L) 11.7 - 15.5 g/dL [facility] Hematocrit 33.0(L) 35.7 - 45.8 % [facility] Mean Cell Volume 85.7 82.6 - 94.4 fL [facility] Mean Cell Hemoglobin 28.6 27.1 - 32.0 pg [facility] Mean Cell Hemoglobin Concentration 33.3 31.7 - 35.0 g/dL [facility] Platelet 137(L) 145 - 357 x10(3)/mc L [facility] RDW Standard Deviation 42.0 37.0 - 46.0 fL [facility] LABORATORY RDW coefficient of variation 13.6 11.5 - 14.1 % [facility] Mean Platelet Volume 12.7 7.6 - 12.9 fL [facility] NRBC% auto 0.0 % [facility] LAB[facility] NRBC Absolute 0.000 0.000 - 0.000 x10(3)/mc L [facility] Blood 04/12/2023 12:0 0 PM EDT 04/12/2023 12:17 PM EDT Narrative Resulting Agency Comment Spec In Lab Vicente Zhang MD HEMATOLOGY ORDERABLE S Performing Organization Address City/[facility] Co de Phone Number [facility] [place] [address] * Antibody screen (04/12/2023 12:00 PM EDT) Ab Screen Interp Negative [facility]OR[facility] Expires at [id number] on: 04/15/2023 [facility] Blood 04/12/2023 12:0 0 PM EDT 04/12/2023 12:15 PM EDT Narrative Resulting Agency Comment Spec In Lab Vicente Zhang MD BLOOD BANK LAB ORDER SHABNAM Performing Organization Address City/[facility]/ZIP Co de Phone Number [facility] [place] [address] * ABO/Rh Typing (04/12/2023 12:00 PM EDT) ABORH Type A Pos [facility] ITAL LABORATORY Blood 04/12/2023 12:0 0 PM EDT 04/12/2023 12:15 PM EDT Narrative Resulting Agency Comment Spec In Lab Vicente Zhang MD BLOOD BANK LAB ORDER SHABNAM Performing Organization Address City/[facility]/[place] [address] documented in this encounter Visit Diagnoses Diagnosis [...] Routine documented in this encounter Care Teams Information Assistant Relationship Specialty Start Date End Date Analisa Martinez PA [address] [address] PCP - General 11/30/22 documented as of this encounter
--- OUTSIDE RECORDS SUMMARY | 2024-08-08 12:00 | XMS_ITS | Encounter Summary ---
Author Organization [facility] Address [facility] [place] [address] Care Team Providers Care Tree Trimmer Helper Name Role Phone Analisa Martinez Primary Care Provider [phone] Encounter Details Date Type Department Care Team (Late st Contact Info) Description 04/07/2023 4:00 PM EDT Routine Obstetrics [place] [address] Casey Armendariz MD [facility] [address] OBSTETRICS [place] [address] GA: [id number] Social History Tobacco Use Types [...] [employer] and was going to present to [facility], but was unable to travel here due [...] disorders documented in this encounter Care Teams Tree Trimmer Helper Relationship Specialty Start Date End Date Analisa Martinez PA [address] [place] [address] PCP - General 11/30/22 documented as of this encounter
--- OUTSIDE RECORDS SUMMARY | 2024-08-08 12:00 | XMS_ITS | Encounter Summary ---
Author Organization [facility] [place] [address] Care Team Providers Care Senior Education Specialist Name Role Phone Analisa Martinez Primary Care Provider [phone] Encounter Details Date Type Department Care Team (Late st Contact Info) Description 04/23/2023 Orders Only Obstetrics [place] [address] Fide Haas MD [facility] [place] [address] Social History Tobacco Use Types Packs/Day Years [...] filedocumented in this encounter Care Teams Senior Education Specialist Relationship Specialty Start Date End Date Analisa Martinez PA [address] [place] [id number] PCP - General 11/30/22 documented as of this encounter
--- OUTSIDE RECORDS SUMMARY | 2024-08-08 12:00 | XMS_ITS | Encounter Summary ---
[place] [address] Care Team Providers Care Truck Striker Name Role Phone Analisa Martinez Primary Care Provider [phone] Reason for Visit * Auth/Cert (Routine) Specialty Diagnoses / Procedures Referred By Contac t Referred To Contact Diagnoses prrior with window Procedures PRO DELIVERY ONLY ER OBSVO Sujata Prater MD [facility] [address] [place] [address] [facility] Referral ID Status Reason Start Date Expiration Date Visits Re quested Visits Authorized [id number] 1 1 Encounter Details Date Type Department Care Team (Late st Contact Info) Description 04/12/2023 1:00 PM EDT - 04/12/2023 3:22 PM EDT [place] [phone] Mary Headley MD @ DELIVERY (WRVU 16.13) [...] Denise Julian Patient Age: 27 y.o. Language: Fijian Race: White Ethnicity: Not nor Admit date: 04/12/2023 Discharge date and time: 04/15/2023 Attending Physician: Mary Headley MD Discharge Physician: Dr. Fide Haas Care Provider: [facility] Referring Hospital: N/A Follow-up Recommendations for Providers: - 2 week mood check - 6 week visit Inpatient Provider Contact Information: [facility] PROPERTY STAFF ACCOUNTANT Department, Discharge Diagnoses (Hospital Problems) and Secondary [...] for the patient's : Eliel Baby Girl [[id number]] INFORMATION Baby Jese Julian 04/12/2023 4:21 PM by Lower Segment Transverse Sex: female Gestational Age: 36w2d [place] Measurements: Weight: 6 lb 5.9 oz (2890 [...] as: Protonix Refills: 0 vitamin 27 & eeckltz-ccwd-IF 60 mg iron-1 mg Tablet Take 1 [...] Instructions: Scheduling Instructions: Comments: Denise Julian [address] [place] [address] [facility] [phone] Infant's : 04/12/23 Insurance: [place] Pay[place] Plan Address Payor Plan Phone Number Payor Plan Fax Number Effective Dates [address] 01/25/2023 - None Entered [facility] [phone] Subscriber Name Subscriber Date Member ID DENISE JULIAN 1995 [id number] [employer] # [phone] Symphony breast pump [id number] Length of need: [...] not provide sufficient milk for this baby. [facility] NPI #: [id number] [facility] [place]ESS [place] MEDICAL NECESSITY FORM (MNF) ORTHOTICS, PROSTHETICS, MEDICAL SUPPLIES & EQUIPMENT All claims for supplies and equipment require a written order. Orders must be signed by a physician, physician horticultural nursery assistant, or nurse practitioner. All home health [...] or on other documentation submitted to the [facility] and DXC. The codes submitted to [facility] and DXC must matchthe description documented by the ordering provider. All orders must adhere to state and federal rules and regulations. [place] Medicaid Rules can be found online at [email or web address]. Section A: (must be completed or reviewed and signed by ordering provider) Beneficiary's name: Denise Julian Medicaid ID#: [place] Payor Plan Address Payor Plan Phone Number Payor Plan Fax Number Effective Dates [facility] 888 01/25/2023 - None Entered [facility] [address] Subscriber Name Subscriber Date Member ID DENISE JULIAN 1995 [id number] Diagnoses: Infant born at 36 weeks 2 days gestation. Infant admitted to the ICN for respiratory distress Purpose of Appliance: To Initiate and Maintain Medical Necessity: /Lactating Mother- Z39.1 Breast Engorgement relative to infant born at 36 weeks gestation Feeding problem of , unspecified P92.9 Premature Infant in ICN from mother P07.30 [address] of service: Is the beneficiary living in a jail facility? Yes [ ] No[x] Is the [...] address: Please see ordering physician signature below. [facility], [address] [place] [address] 6. Ordering provider's signature: Please see order [...] identified in the Provider Manual, available at: [email or web address]. For exceptions, an MNF must be kept on file by the DME supplier. Prior Authorization: The DME supplier must include a copy of an MNF with every Prior Authorization request. Fax the MNF and any other supporting documents to the [facility] at . Use of this [facility] Medical Necessity Form is recommended for all prior authorization requests to ensure timely processing. Medicaid may request a copy of the medical record upon audit. *INSTRUCTIONS FOR SECTIONS A & B* Section A must be completed or reviewed, signed, and dated by the ordering physician/physician horticultural nursery assistant/nurse practitioner. Section B must be completed [...] must appear on other documentation submitted to [facility] for PA and to [facility] for billing), medical necessity rationale, expected length of need (will be interpreted as months unless stated otherwise), and the number ofitems needed (for example: 2 bottles of sterile saline per month). NOTE: If the quantity ordered ismore than the number allowed (based on customary usage and as listed in the [facility] DME Restriction list, available at: [email or web address]), an explanation from the physician is required. [...] Hospital grade rental pump Size requested: Follow-up [DYR282 Custom] As directed Process Instructions: Scheduling Instructions: Comments: - gestational diabetic counseling with vial gauger at the time of the visit if [...] aware, opioid use is a concern in [place] and [place]. We recommend that families with [...] overwhelmed. Emergency Resources National Suicide Hotlines: or [place]: Call/Text [facility] Mental Health Crisis Hotline: Call/Text 101 [facility] Mental Health Hotline: Call/Text Call your doctor or registered vascular technologist (rvt) for: Seizure (call 911) Headache which isn't [...] to you follow up appointment. Your [facility] Provider can be reached during office hours at [facility] AFTER OFFICE HOURS for the director of procurement or registered vascular technologist (rvt) assistant tennis professional Post- Warning Signs Most women who give [...] by mouth daily. 05/24/2023 vitamin 27 & mliksoa-dqhj-RV 60 mg iron-1 mg Tablet Take 1 [...] for the patient's : Eliel, Baby Girl [[id number]] Delivery Date and Time:04/12/2023 4:21 PM Delivery [...] 04/14/2023 3:36 PM EDT [facility] Social Work Note Patient: DENISE ELIEL Relevant [...] needed/desired by patient. TITO Melo Pronouns: She/Her Fishing Instructor [facility] [email or web address] Pager: [phone] [email or web address] [facility] Children[facility] * Trina Bravo MD [...] mg by mouth daily. vitamin 27 & pjefeck-lqrd-QQ 60 mg iron-1 mg Tablet Take 1 [...] 135, Variability: moderate, Accels: yes, Decels: none, [place]: none Lab Results Component Value Date ABORH [...] patient was seen and discussed with Dr. Healdey, Attending PROPERTY STAFF ACCOUNTANT. Vicente Zhang MD, PGY3 Obstetrics and Gynecology [...] weaned slightly. Analisa Shepard RN, IBCLC [facility] Services * Plan of Care - Cathy [...] weight loss: -4% MATERNAL INFO: Denise Julian [id number] 1995 G 4 P 3 Significant History: [...] ice packs after pumping X 48 hours Baring oil to nipples prior to pumping Frequent [...] and recommendations. Analisa Shepard RN, IBCLC [facility] Services * Note - Jannette Lorenz RN [...] pump. She has rented one via the [employer]???s [employer]. She is sized to a 24 mm flange. We discussed pumping techniques. RECOMMENDATIONS: Breast massage and hand expression before and during pumping Baring oil to nipples prior to pumping Pump [...] Betzy / Jennifer Ramírez Initial Assessment This health technical writer introduced self and reviewed role; services were accepted. Patient Name: Denise Julian Child's Legal Name (if applicable): Annia Prakash Source of Information: Chart Review and patient interview Initial Assessment for: Mother / Couplet Was Conifer contacted to update information? No Home Address confirmed as: [address] [address] Verified Phone Numbers confirmed as: Extended Emergency Contact Information Primary Emergency Contact: Carl Prakash Address: [address] [place] [address] [place] Relation: Clotilde Primary Care Provider listed as: BRIDGETT Turner /Child PCP, if different: Will be Dr. Lloyd Chamberlain, [facility] Reason for Hospitalization: Patient Active [...] room mate, older children with grandparents in [place]. Housing for family / support system while patient admitted to [facility]: Rooming inat , Information regarding [facility] given Nutrition Food: Secure Current Nutrition of Patient: PO - regular diet Breast pump needs: Hospital grade breast pump rental provided (Given rental pump number [id number], approved by Brianna holliday [facility]) Social and Community Resources: Patient is not employed. Her partner, Carl Prakash, is employed PTas a sales incentive analyst for [employer]). Transportation Baseline Transportation: Personal Vehicle Transportation at Discharge: Personal Vehicle - Family / Friend to drive Current Patient / Caregiver Coping: coping okay, teary at times Child Life Consult Needed for Other Children in the Home / Family: declined PESTICIDE CHEMIST Consult Needed: possibly Health Coverage confirmed as: [place] Pay[place] / Plan[place] / Product Type: *No Product type* / N/A Infant patient to be added to above insurance plan: Yes Prescription Coverage: Yes Preferred Pharmacy: [facility] - [place], [place] - [address] [place] [id number] Anticipated Barriers to Discharge / Special Considerations: no Plan: Patient to discharge to [facility] when medically stable. Follow up with OB team. Infant to discharge home with PCP and VNA follow up. storage specialist / PESTICIDE CHEMIST remain available as needed for coordination of [...] note for further details. Dr. Headley, attending Brass Buffer, present for entire delivery without conflicting clinical responsibilities. Maria Teresa Dhillon MD, PGY4 Obstetrics and Gynecology Information for the patient's : Eliel, Baby Girl [[id number]] DELIVERY SUMMARY FOR Baby Jese Julian (please [...] Yes Other Personnel: Provider Role Chandrika Elmore, blend plant operator Nurse Mary Headley MD Transfer And Line Up Worker Tami Victor, blend plant operator Assist Maria Teresa Dhillon MD Resident Navya Martinez, [facility] Anesthesia Method: Combined Spinal/Epidural Cord Vessels: 3 [...] for ~30 minutes. Transferred to [facility] and placed on Bubble CPAP adjusting to CPAP of 7, 25-35% FiO2. (per respiratorynote) Maternal [facility] Feeding and Skin to Skin Maternal Choice for [facility](s) Feeding on Admission: Reason skin to skin not initiated: [facility] Acuity Medications [facility] Medications Given: vitamin K, erythromycin Measurements Weight: [...] Operative Note Patient Name: Denise Julian : [id number] MR#: [id number] Case Date: 04/12/2023 Surgeon: Surgeon(s) and Role: [...] MD - 04/12/2023 3:45 PM EDT [facility] Operative Note Patient Name: Denise Julian : [id number] MR#: [id number] Case Date: 04/12/2023 Surgeon: Surgeon(s) and Role: [...] betweenbladder, omentum, peritoneum, and fascia. Liveborn female infant, vigorous, APGARs 5 and 6, weight 2890g. [...] There was no imbricating layer, however several pecmfp-qn-qfbdbz were placed over the hysterotomy after which [...] tube was visible. This was elevated with [place] clamps and using the LigaSure, starting from [...] The uterus was expressed. The patient and infant tolerated the procedure well and were in [...] 04/12/2023 5:52 PM EDT FALLOPIAN TUBE(S)\LIGATION\TRANS ECTION\ POST-\ABD\SIGNAL SYSTEM TESTING MAINTAINER Routine 04/12/2023 3:27 PM EDT Dehiscence of old uterine scar with extension before onset of labor, delivered [place] Fallopian Tube, (28495) 04/12/2023 3:02 PM EDT Dehiscence of old uterine scar with extension before onset of labor, delivered Delivery Only (10901) 04/12/2023 3:02 PM EDT Dehiscence of old [...] reflex RPR (04/13/2023 3:10 PM EDT) Pathologist [facility] Syphilis IgG/IgM Negative Negative [facility] Blood 04/13/2023 3:10 PM EDT 04/13/2023 3:36 PM EDT Narrative Resulting Agency Comment Spec In Lab Mary Headley MD CHEMISTRY ORDERABLE S [facility] [place] [address] * (ABNORMAL) Differential, Automated (04/13/2023 5:15 AM EDT) [facility] Neutrophil % 84.2 % [facility] Neutrophil Absolute 15.69(H) 1.70 - 6.10 x10(3)/mc L [facility] Lymph % 7.7 % [facility] Lymphocytes Abs 1.4 0.9 - 3.2 x10(3)/mc L [facility] Monocyte % 7.1 % [facility] Monocyte Abs 1.3(H) 0.3 - 0.9 x10(3)/mc L [facility] Eos % 0.0 % [facility] Eosinophils Abs 0.0 0.0 - 0.4 x10(3)/mc L [facility] Basophil % 0.2 % [facility] Baso Absolute 0.0 0.0 - 0.1 x10(3)/mc L [facility] Immature Gran % 0.80 % [facility] Comment: Immature granulocytes(IG's)percentage and absolute count will include metamyelocytes, myelocytes, and promyelocytes. Blood smears from CBCs yielding IG's will be scanned manually for concordance. If this scan disagrees with the automated IG or if promyelocytes are noted, a manual differential will be performed. Immature Gran Absolute 0.14(H) 0.00 - 0.04 x10(3)/mc L [facility] Blood 04/13/2023 5:15 AM EDT 04/13/2023 5:23 AM EDT Narrative Resulting Agency Comment Spec In Lab Jocelin Mariscal MD HEMATOLOGY ORDERABLE S [facility] [place] [address] * (ABNORMAL) Hemogram (04/13/2023 5:15 AM EDT) White Blood Cell 18.6(H) 4.0 - 9.5 x10(3)/mc L [facility] Red Blood Cell 3.55(L) 4.00 - 5.21 x10(6)/mc L [facility] Hemoglobin 10.4(L) 11.7 - 15.5 g/dL [facility] Hematocrit 30.2(L) 35.7 - 45.8 % [facility] Mean Cell Volume 85.1 82.6 - 94.4 fL [facility] Mean Cell Hemoglobin 29.3 27.1 - 32.0 pg [facility] Mean Cell Hemoglobin Concentration 34.4 31.7 - 35.0 g/dL [facility] Platelet 137(L) 145 - 357 x10(3)/mc L [facility] RDW Standard Deviation 41.2 37.0 - 46.0 fL [facility] RDW coefficient of variation 13.2 11.5 - 14.1 % [facility] Mean Platelet Volume 13.2(H) 7.6 - 12.9 fL [facility] NRBC% auto 0.0 % [facility] NRBC Absolute 0.000 0.000 - 0.000 x10(3)/mc L [facility] Blood 04/13/2023 5:15 AM EDT 04/13/2023 5:23 AM EDT Narrative Resulting Agency Comment Spec In Lab Jocelin Mariscal MD HEMATOLOGY ORDERABLE S Performing Organization Address City/[facility]/ZIP Co de Phone Number [facility] [place] [address] * POCT Glucose (04/12/2023 11:35 PM EDT) Glucose, POC 129 65 - 199 mg/dL [facility] Comment: Supplemental ranges: <140 mg/dL before meals <180 mg/dL all other times of the day Blood 04/12/2023 11:3 5 PM EDT 04/12/2023 11:35 PM EDT Mary Headley MD POINT OF CARE TEST ORDERABLES Performing Organization Address [facility] Co de Phone Number [facility] [place] [address] * Specimen to Pathology (04/12/2023 5:53 PM EDT) AP Specimen 04/12/2023 5:53 PM EDT 04/12/2023 5:53 PM EDT Narrative [facility] - 04/12/2023 5:53 PM EDT Specimen requisition ordered. ??Separate Pathology report to follow Mary Headley MD PATHOLOGY/CYTOLOGY ORDERABLES Performing Organization Address [facility] Co de Phone Number [facility] [place] [address] * Specimen to Pathology (04/12/2023 5:53 PM EDT) AP Specimen 04/12/2023 5:53 PM EDT 04/12/2023 5:53 PM EDT Narrative [facility] - 04/12/2023 5:53 PM EDT Specimen requisition ordered. ??Separate Pathology report to follow Mary Headley MD PATHOLOGY/CYTOLOGY ORDERABLES Performing Organization Address [facility] Co de Phone Number [facility] [place] [address] * Surgical Pathology Report (04/12/2023 5:52 PM EDT) Final Diagnosis [id number] ? Location: BP; BP05; A The signing [...] Verified: ??04/19/2023 10:37 ??Pathologist Performed at: ??-[facility] Dept. of Pathology, [place] [address] Detective Narcotics And Vice: Mahendra Turcios MD, FCAP, ??CLIA Certificate: [id number] SPECIMEN(S) SUBMITTED A - Placenta B - [...] formed cotyledons. Parenchyma: Boggy, purple-red. Sections/Processi ng: National Van Owner Operator sections in 8 cassettes as follows: ?A1: ??Membrane roll ?A2: ??Proximal and distal cord ?A3-A8: ??Full thickness parenchyma, bisected B - Labeled/Fixative: ?? Bilateral fallopian tubes , formalin. Tissue Description: Intact, bilateral salpingectomy. . SPECIMEN PROCESSING Fallopian Tube 1: 12.0 x 0.9 cm, fimbriated. Fallopian Tube 2: 9.8 x 0.9 cm, fimbriated. Sections/Processi ng: National Van Owner Operator sections in 4 cassettes as follows: ?B1: ??Fallopian tube 1 fimbria ?B2: ??Fallopian tube 1 cross sections ?B3: ??Fallopian tube 2 fimbria ?B4: ??Fallopian tube 2 cross sections ??ajw 04/19/2023 10:37 AM EDT [facility] TISSUE SPECIMEN FROM PLACENTA / Unknown 04/12/2023 5:52 PM EDT 04/12/2023 5:52 PM EDT False Vocal Cords, Bilateral 04/12/2023 5:52 PM EDT 04/12/2023 5:52 PM EDT Vicente Zhang MD PATHOLOGY/CYTOLOGY O RDERABLES Performing Organization Address City/[facility]/ZIP Co de Phone Number [facility] [address] [place] [address] * Group B Streptococcus Screen (04/12/2023 2:06 PM EDT) GBS Screen Neg [facility] Vaginal/Rectal 04/12/2023 2: 06 PM EDT 04/12/2023 3:32 PM EDT Comment:Penicillin Allergy?- >Yes Narrative Resulting Agency Comment Spec In Lab Vicente Zhang MD MICROBIOLOGY - GENER AL ORDERABLES Performing Organization Address [facility] Co de Phone Number [facility] [place] [address] * Group B Strep Culture Screen (04/12/2023 2:06 PM EDT) Group B Streptococcus Culture No Group B Streptococci isolated [facility] Vaginal/Rectal 04/12/2023 2: 06 PM EDT 04/12/2023 3:32 PM EDT Comment:Penicillin Allergy?- >Yes Narrative Resulting Agency Comment Spec In Lab Mary Headley MD MICROBIOLOGY - GENE RAL ORDERABLES Performing Organization Address City/[facility]/ZIP Co de Phone Number [facility] [place] [address] * Type and Screen Validity (04/12/2023 12:00 PM EDT) T&S only valid at [facility] Comment:This Type and Screen result is only valid at the [facility] Blood 04/12/2023 12:0 0 PM EDT 04/12/2023 12:15 PM EDT Narrative Resulting Agency Comment Spec In Lab Vicente Zhang MD BLOOD BANK LAB ORDER SHABNAM Performing Organization Address City/[facility] Co de Phone Number [facility] [place] [address] * ABORH Recheck Status (04/12/2023 12:00 PM EDT) ABORH Type Recheck Completed [facility] Blood 04/12/2023 12:0 0 PM EDT 04/12/2023 12:15 PM EDT Narrative Resulting Agency Comment Spec In Lab Vicente Zhang MD BLOOD BANK LAB ORDER SHABNAM Performing Organization Address City/[facility] Co de Phone Number [facility] [place] [address] * (ABNORMAL) Differential, Automated (04/12/2023 12:00 PM EDT) Neutrophil % 72.7 % [facility] Neutrophil Absolute 7.47(H) 1.70 - 6.10 x10(3)/mc L [facility] Lymph % 19.0 % [facility] Lymphocytes Abs 2.0 0.9 - 3.2 x10(3)/mc L [facility] Monocyte % 6.3 % [facility] Monocyte Abs 0.6 0.3 - 0.9 x10(3)/mc L [facility] Eos % 0.5 % [facility] Eosinophils Abs 0.0 0.0 - 0.4 x10(3)/ L [facility] Basophil % 0.4 % [facility] Baso Absolute 0.0 0.0 - 0.1 x10(3)/ L [facility] Immature Gran % 1.10 % [facility] Comment: Immature granulocytes(IG's)percentage and absolute count will include metamyelocytes, myelocytes, and promyelocytes. Blood smears from CBCs yielding IG's will be scanned manually for concordance. If this scan disagrees with the automated IG or if promyelocytes are noted, a manual differential will be performed. Immature Gran Absolute 0.11(H) 0.00 - 0.04 x10(3)/ L [facility] Blood 04/12/2023 12:0 0 PM EDT 04/12/2023 12:17 PM EDT Narrative Resulting Agency Comment Spec In Lab Vicente Zhang MD HEMATOLOGY ORDERABLE S [facility] [place] [address] * (ABNORMAL) Hemogram (04/12/2023 12:00 PM EDT) White Blood Cell 10.3(H) 4.0 - 9.5 x10(3)/mc L [facility] Red Blood Cell 3.85(L) 4.00 - 5.21 x10(6)/ L [facility] Hemoglobin 11.0(L) 11.7 - 15.5 g/dL [facility] Hematocrit 33.0(L) 35.7 - 45.8 % [facility] Mean Cell Volume 85.7 82.6 - 94.4 fL [facility] Mean Cell Hemoglobin 28.6 27.1 - 32.0 pg [facility] Mean Cell Hemoglobin Concentration 33.3 31.7 - 35.0 g/dL [facility] Platelet 137(L) 145 - 357 x10(3)/ L [facility] RDW Standard Deviation 42.0 37.0 - 46.0 fL [facility] RDW coefficient of variation 13.6 11.5 - 14.1 % [facility] Mean Platelet Volume 12.7 7.6 - 12.9 fL [facility] NRBC% auto 0.0 % [facility] NRBC Absolute 0.000 0.000 - 0.000 x10(3)/mc L [facility] Blood 04/12/2023 12:0 0 PM EDT 04/12/2023 12:17 PM EDT Narrative Resulting Agency Comment Spec In Lab Vicente Zhang MD HEMATOLOGY ORDERABLE S Performing Organization Address City/[facility]/ZIP Co de Phone Number [facility] [place] [address] * Antibody screen (04/12/2023 12:00 PM EDT) Ab Screen Interp Negative [facility] Expires at [id number] on: 04/15/2023 [facility] Blood 04/12/2023 12:0 0 PM EDT 04/12/2023 12:15 PM EDT Narrative Resulting Agency Comment Spec In Lab Vicente Zhang MD BLOOD BANK LAB ORDER SHABNAM Performing Organization Address City/[facility] Co de Phone Number [facility] [place] [address] * ABO/Rh Typing (04/12/2023 12:00 PM EDT) ABORH Type A Pos [facility] Blood 04/12/2023 12:0 0 PM EDT 04/12/2023 12:15 PM EDT Narrative Resulting Agency Comment Spec In Lab Vicente Zhang MD BLOOD BANK LAB ORDER SHABNAM Performing Organization Address City/[facility]/ZIP Co de Phone Number [facility] [place] [address] documented in this encounter Visit Diagnoses Diagnosis [...] Routine documented in this encounter Care Teams Truck Striker Relationship Specialty Start Date End Date Analisa Martinez [place] [address] PCP - General 11/30/22 documented as of this encounter
--- OUTSIDE RECORDS SUMMARY | 2024-08-08 12:00 | XMS_ITS | Encounter Summary ---
Author Organization [facility] [place] [address] Care Team Providers Care Medical Equipment Repair Technician Name Role Phone Analisa Martinez Primary Care Provider [phone] Encounter Details Date Type Department Care Team (Late st Contact Info) Description 03/17/2023 Telephone Obstetrics [place] [id number] Vilma Collins MD [facility] DR OBSTETRICS & [place] [address] Social History Tobacco Use Types Packs/Day Years [...] applicable documented in this encounter Care Teams Medical Equipment Repair Technician Relationship Specialty Start Date End Date Analisa Martinez PA [address] [place] [address] PCP - General 11/30/22 documented as of this encounter
--- OUTSIDE RECORDS SUMMARY | 2024-08-08 12:00 | XMS_ITS | Encounter Summary ---
Author Organization [facility] [place] [address] Care Team Providers Care Equine Manager Name Role Phone Analisa Martinez Primary Care Provider Reason for Visit * Auth/Cert (Routine) Specialty Diagnoses / Procedures Referred By Contac t Referred To Contact Diagnoses Wound infection after surgery Procedures EMERGENCY IPI Casey Armendariz MD [facility] OBSTETRICS [place] [address] [facility] Referral ID Status Reason Start Date Expiration Date Visits Re quested Visits Authorized [id number] 1 1 Encounter Details Date Type Department Care Team (Latest Contact Info) Description 04/24/2023 1:36 PM EDT - 04/24/2023 11:01 PM EDT Hospital [place] [address] Casey Armendariz MD [facility] OBSTETRICS [place] [address] Discharge Disposition: Home Social History Tobacco Use [...] Isabel Julian Patient Age: 27 y.o. Language: Lebanese Race: White Ethnicity: Not nor Admit date: 04/24/2023 Discharge date and time: 05/04/2023 Attending Physician: No att. providers found Discharge Physician: Dr. Fide Haas Care Provider: [facility] Referring Hospital: N/A Follow-up Recommendations for Providers: - 2 week mood check - 6 week visit Inpatient Provider Contact Information: [facility] Department, Discharge Diagnoses (Hospital Problems) and Secondary [...] Information for the patient's : Annia Prakash [[id number]] INFORMATION Annia Prakash 04/12/2023 4:21 PM by [...] 60 tablet Refills: 0 vitamin 27 & zjctjrb-[id number]-RX 60 mg iron-1 mg Tablet Take 1 [...] Sophie Scanlon MD Obstetrics and Gynecology at [facility] Arrive at: [employer] [place] [phone] 05/24/2023 1:45 PM Nitza Murguia MD Obstetrics and Gynecology at [facility] Arrive at: [employer] [place] [place] [phone] Discharge References/Attachments None Hypotension due to anesthesia [...] by mouth daily. 05/24/2023 vitamin 27 & [id number]-DD 60 mg iron-1 mg Tablet Take 1 [...] was visiting her baby in the [facility] and wanted to get checked out. No redness or pain around the incision. No fevers or chills. Otherwise feeling well and plan was for d/c home from [facility] today for baby. On she was [...] overnight andbaby can't go home from [facility]. Does not want surgery. We reviewed [...] (one dose one before she goes, will pickling drum operator rest @ pharmacy in AM) and f/u [...] for Visit: 27 y.o. Female presents to [facility] with concern for wound infection. History of Present Illness: Isabel is a 27 year old G4 now P2113, now POD#12 s/p scheduled repeat and bilateral salpingectomy who presents for concern for wound infection. She presents with her partner, who assists inrelaying the history. Notes that in the last 24 hours, has had significant drainage from Pfannenstiel incision. Drainage clear to zmqbbo-gua-wlwnc. Patient provides pictures and notes that she [...] 16.13) performed by Mary Headley MD at [facility] PRO LIGATE FALLOPIAN TUBE, N/A 04/12/2023 @FALLOPIAN TUBE(S), TRANSECTION OR LIGATION, ABD APPROACH, POST- (WRVU 5.28) performed by Mary Headley MD at [facility] Past Obstetric History: OB History Para Term [...] mg by mouth daily. vitamin 27 & yqmqcwm-fkxq-AF 60 mg iron-1 mg Tablet Take 1 [...] of 04/24/23 CT Pelvis Soft Tissue (GI BEADING INSTALLER) w Contrast (Exam End: 04/24/2023 4:06 PM) [...] who have questions please contact the health rn medicare that requested your imaging first. Assessment/Plan: Isabel [...] or any new or concerning symptoms. Risa Anen MD Obstetrics Resident Birthing [place] Phone: [phone] Pager: [phone] Associated attestation - Casey Armendariz MD - [...] PM EDT CT PELVIS SOFT TISSUE (GI BEADING INSTALLER)W CONTRAST Routine 04/24/2023 4:06 PM EDT ANAEROBIC CULTURE Routine 04/24/2023 2:3 1 PM EDT HC BODY FLUID CULTURE Routine 04/24/2023 2:31 PM EDT BODY FLUID CULTURE, AEROBIC Routine 04/24/2023 2:31 PM EDT documented in this encounter Results * (ABNORMAL) Differential, Automated (04/24/2023 8:26 PM EDT) Neutrophil % 73.3 % [facility] Neutrophil Absolute 7.23(H) 1.70 - 6.10 x10(3)/mc L [facility] Lymph % 19.8 % [facility] Lymphocytes Abs 2.0 0.9 - 3.2 x10(3)/mc L [facility] Monocyte % 5.6 % [facility] ITAL [facility] Monocyte Abs 0.6 0.3 - 0.9 x10(3)/ L [facility] Eos % 0.6 % [facility] Eosinophils Abs 0.1 0.0 - 0.4 x10(3)/ L [facility] Basophil % 0.3 % [facility] Baso Absolute 0.0 0.0 - 0.1 x10(3)/ L [facility] Immature Gran % 0.40 % [facility] Comment: Immature granulocytes(IG's)percentage and absolute count will include metamyelocytes, myelocytes, and promyelocytes. Blood smears from CBCs yielding IG's will be scanned manually for concordance. If this scan disagrees with the automated IG or if promyelocytes are noted, a manual differential will be performed. Immature Gran Absolute 0.04 0.00 - 0.04 x10(3)/ L [facility] Blood 04/24/2023 8:26 PM EDT 04/24/2023 8:34 PM EDT Narrative Resulting Agency Comment Spec In Lab Vicente Zhang MD HEMATOLOGY ORDERABLE S [facility] [place] [address] * (ABNORMAL) Hemogram (04/24/2023 8:26 PM EDT) White Blood Cell 9.9(H) 4.0 - 9.5 x10(3)/ L [facility] Red Blood Cell 3.32(L) 4.00 - 5.21 x10(6)/ L [facility] Hemoglobin 9.4(L) 11.7 - 15.5 g/dL [facility] Hematocrit 28.8(L) 35.7 - 45.8 % [facility] Mean Cell Volume 86.7 82.6 - 94.4 fL [facility] Mean Cell Hemoglobin 28.3 27.1 - 32.0 pg [facility] Mean Cell Hemoglobin Concentration 32.6 31.7 - 35.0 g/dL [facility] Platelet 191 145 - 357 x10(3)/mc L [facility] RDW Standard Deviation 43.5 37.0 - 46.0 fL [facility] RDW coefficient of variation 13.8 11.5 - 14.1 % [facility] Mean Platelet Volume 12.5 7.6 - 12.9 fL [facility] NRBC% auto 0.0 % [facility] ITAL [facility] NRBC Absolute 0.000 0.000 - 0.000 x10(3)/mc L [facility] Blood 04/24/2023 8:26 PM EDT 04/24/2023 8:34 PM EDT Narrative Resulting Agency Comment Spec In Lab Vicente Zhang MD HEMATOLOGY ORDERABLE S [facility] [place] [address] * (ABNORMAL) Comprehensive metabolic panel (non-fasting) (04/24/2023 8:26 PM EDT) Glucose 82 65 - 199 mg/dL [facility] Comment:Diabetes: >=200 mg/d L plus symptoms Blood Urea Nitrogen 8 8 - 18 mg/dL [facility] Creatinine 0.68(L) 0.70 - 1.20 mg/dL [facility] Sodium 141 135 - 145 mmol/L [facility] Potassium 3.7 3.5 - 5.0 mmol/L [facility] Comment: Please note: ??Patients with WBC >100,000 may have falsely elevated Potassium levels. ??For accurate Potassium quantification in these patients send serum separator tube (gold top) for subsequent determinations. ??Contact the Clinical Chemistry Laboratory if there are any questions. Chloride 108(H) 98 - 107 mmol/L [facility] Carbon Dioxide 20(L) 22 - 31 mmol/L [facility] Anion Gap 13 5 - 15 mmol/L [facility] Calcium 8.6 8.5 - 10.5 mg/dL [facility] Protein, Total 6.3 6.1 - 8.0 g/dL [facility] Albumin 3.3 3.2 - 5.2 g/dL [facility] Aspartate Aminotransferase 9 0 - 30 unit/L [facility] Alanine Aminotransferase 6 0 - 30 unit/L [facility] Alkaline Phosphatase 81 35 - 105 unit/L [facility] Bilirubin, Total <0.2(L) 0.2 - 1.3 mg/dL [facility] Est Glomerular Filtration Rate 122 >=60 mL/min/1. 73 m?? [facility] Comment: This patient's estimated [...] In Lab Casey Armendariz MD CHEMISTRY ORDERABLES [facility] [place] [address] * CT Pelvis Soft Tissue (GI BEADING INSTALLER) w Contrast (04/24/2023 4:06 PM EDT) Anatomical [...] who have questions please contact the health rn medicare that requested your imaging first. ? Narrative 04/24/2023 6:01 PM EDT EXAMINATION: CT PELVIS SOFT TISSUE (GI BEADING INSTALLER)W CONTRAST CLINICAL HISTORY: assess subcutaneous incisional abscess [...] 04/24/2023 EXAMINATION: CT PELVIS SOFT TISSUE (GI BEADING INSTALLER)W CONTRAST CLINICAL HISTORY: assess subcutaneous incisional abscess [...] patients who have questions please contactthe health rn medicare that requested your imaging first. Electronically signed by: Lisha Bolton MD, [facility] ([phone]), at 04/24/2023 6:01 PM Casey Armendariz MD IMG CT ORDERABLES * Anaerobic Culture (04/24/2023 2:31 PM EDT) Anaerobic Culture No anaerobic organisms isolated [facility] Abdominal Fluid 04/24/2023 2 :31 PM EDT 04/24/2023 3:05 PM EDT Comment:Culture from probing of Pfannenstiel incision Narrative Resulting Agency Comment Spec In Lab Risa Anne MD MICROBIOLOGY - GEN ERAL ORDERABLES Performing Organization Address City/[facility]/ZIP Co de Phone Number [facility] [place] [address] * (ABNORMAL) Body Fluid Culture, Aerobic (04/24/2023 2:31 PM EDT) Body Fluid Culture Few mixed Gram Negative and Positive organisms(A) [facility] Gram Stain Cytocentrifuge Gram Stain performed Neutrophils seen Moderate Gram Positive Cocci seen (A) [facility] Organism Gram Positive Cocci(A) [facility] Abdominal Fluid 04/24/2023 2 :31 PM EDT 04/24/2023 3:05 PM EDT Comment:Culture from probing of Pfannenstiel incision Narrative Resulting Agency Comment Spec In Lab Risa Anne MD MICROBIOLOGY - GEN ERAL ORDERABLES Performing Organization Address [facility] Co de Phone Number [facility] [place] [address] documented in this encounter Visit Diagnoses Diagnosis [...] Mccoy) documented in this encounter Care Teams Equine Manager Relationship Specialty Start Date End Date Analisa Martinez PA [facility] [place] [place] [address] PCP - General 11/30/22 documented as of this encounter
--- OUTSIDE RECORDS SUMMARY | 2024-08-08 12:00 | XMS_ITS | Encounter Summary ---
[place] [address] Care Team Providers Care Home Comfort Advisor Name Role Phone Analisa Martinez Primary Care Provider [phone] Encounter Details Date Type Department Care Team (Late st Contact Info) Description 04/20/2023 Telephone Obstetrics [place] [address] Maribell Torres RN Social History [...] filedocumented in this encounter Care Teams Home Comfort Advisor Relationship Specialty Start Date End Date Analisa Martinez PA [address] [place] [address] PCP - General 11/30/22 documented as of this encounter
--- OUTSIDE RECORDS SUMMARY | 2024-08-08 12:00 | XMS_ITS | Encounter Summary ---
Author Organization [facility] Address [facility] [place] [address] Care Team Providers Care Journeyman Millwright Name Role Phone Analisa Martinez Primary Care Provider [phone] Encounter Details Date Type Department Care Team [...] continue to follow. Deanna Estrada RN IBCLC [facility] Services will continue to follow. documented in this encounter Plan of Treatment Not on file documented as of this encounter Visit Diagnoses Not on filedocumented in this encounter Care Teams Journeyman Millwright Relationship Specialty Start Date End Date Analisa Martinez PA [address] [place] [address] PCP - General 11/30/22 documented as of this encounter
--- OUTSIDE RECORDS SUMMARY | 2024-08-08 12:00 | XMS_ITS | Encounter Summary ---
[place] [address] Care Team Providers Care Loom Control Chain Builder Name Role Phone Analisa Martinez Primary Care Provider [phone] Encounter Details Date Type Department Care Team (Late st Contact Info) Description 04/29/2023 Telephone Obstetrics [place] [address] Macarena Priest RN Social History [...] pt, got VM for spouse. Will send [facility]. documented in this encounter Plan of Treatment Not on file documented as of this encounter Visit Diagnoses Not on filedocumented in this encounter Care Teams Loom Control Chain Builder Relationship Specialty Start Date End Date Analisa Martinez PA [address] [place] [address] PCP - General 11/30/22 documented as of this encounter
--- OUTSIDE RECORDS SUMMARY | 2024-08-08 12:00 | XMS_ITS | Encounter Summary ---
Author Organization Formerly [facility] [place] [address] Care Team Providers Care Shredding Machine Tender Name Role Phone Analisa Martinez Primary Care Provider [phone] Reason for Visit * Auth/Cert (Routine) Specialty Diagnoses / Procedures Referred By Contac t Referred To Contact Diagnoses prrior with window Procedures PRO DELIVERY ONLY ER OBSVO Sujata Prater MD [facility] OBSTETRICS [place] [address] [facility] Referral ID Status Reason Start Date Expiration Date Visits Re quested Visits Authorized [id number] 1 1 Encounter Details Date Type Department Care Team (Latest Contact Info) Description 03/18/2023 12:01 AM EDT - 03/18/2023 10:57 AM EDT [place] [id number] Samuel Barron MD [facility] [place] [address] Discharge Disposition: Home Social History Tobacco Use [...] Isabel Julian Patient Age: 27 y.o. Language: Spanish Race: White Ethnicity: Not nor Admit date: 03/18/2023 Discharge date and time: 03/18/2023 Attending Physician: Dr. Samuel Barron Discharge Physician: Dr. Nitza Murguia Follow-up Recommendations for Providers: - Betamethasone #2 to be administered 03/19 at [facility] - Next visit with Dr. Murguia 03/22/23 Inpatient Provider Contact Information: [facility] Maternal- Medicine, Care Provider: [facility] Referring Provider if applicable: N/A Discharge Diagnoses [...] uterine rupture, she called and came to [facility] (lives ~1 hour away). Here she continues [...] to get second dose of Betamethasone at [facility]. [employer] Received if applicable: None Date [...] as: Protonix Refills: 0 vitamin 27 & [id number]-[id number] 60 mg iron-1 mg Tablet Take 1 tablet by mouth daily. 1 tablet Refills: 0 Smoking Status at Discharge: Social History Tobacco Use Smoking Status Every Day Packs/day: 0.50 Types: Cigarettes Smokeless Tobacco Never Tobacco Comments Cut back from 2 packs Instructions Given to Patient at Discharge: There are no outpatient Patient Instructions on file for this admission. General Instructions [facility] to contact OB doctor [facility] [place] [address] to contact family doctor Following your visit to [facility] Triage ??N?DL?TL?? Reason for Visit: Provider: GESTATION [...] a vaginal exam in your doctor's or associate buyer's office you should not bleed as much [...] dehydration Keep your regularly scheduled doctor or associate buyer appointment NEW MEDICATIONS: SPECIAL INSTRUCTIONS/FOLLOW-UP CARE: Future Appointments and Orders Future Appointments and Orders Future Appointments Provider Department Dept Phone 03/22/2023 4:00 PM Nitza Murguia MD Obstetrics and Gynecology at [facility] Arrive at: [facility] 04/07/2023 4:00 PM Casey Armendariz MD Obstetrics and Gynecology at [facility] Arrive at: [facility] [phone] Discharge References/Attachments None documented in this encounter Discharge Instructions * Discharge Instructions* Tejal Miles RN - 03/18/2023 10:15 AM EDT [facility] Birthtram Ramírez to contact OB doctor [facility] [address] to contact associate buyer CONCEPCIÓN Degroot to contact family doctor [facility] Triage ??N?DL?TL?? Reason for Visit: Provider: GESTATION - Less Than 37 Weeks Call your provider if: You are feeling any cramping sensations in your abdomen less than 20 minutes apart [place] Contractions usually are irregular may get less [...] a vaginal exam in your doctor's or associate buyer's office you should not bleed as much [...] dehydration Keep your regularly scheduled doctor or associate buyer appointment NEW MEDICATIONS: SPECIAL INSTRUCTIONS/FOLLOW-UP CARE: documented [...] by mouth daily. 05/24/2023 vitamin 27 & rkolvul-rvic-BY 60 mg iron-1 mg Tablet Take 1 [...] plans to get BMZ #2 tomorrow at [facility], confirmed by Dr. Prater - 36w [...] discharge today Second dose of betamethasone locally [facility] planned 36-37 weeks Nitza Murguia [...] uterine rupture, she called and came to [facility] (lives ~1 hour away). Here she continues [...] mg by mouth daily. vitamin 27 & fkdsrwv-tbgg-YH 60 mg iron-1 mg Tablet Take 1 [...] 130, Variability: moderate, Accels: yes, Decels: none, [place]: q2-3 Category: I Record Review Labs Lab [...] transportation insecurity, Fide Mc is current ride [phone] -Consents obtained: CS with BS, federal consent 11/30/22, opioids - Hemorrhage Risk: High This patient was seen and discussed with Dr. Barron, Attending GEOTHERMAL PLANT MANAGER. Lyric Garber, 03/18/2023 Associated attestation - Samuel [...] 03/18/2023 10:30 AM EDT OFFICE OF CARE MANAGEMENT/principal consulting engineer Isabel Julian is a 27 y.o. at 32w5d weeks gestation. She has been admitted secondary to threatened labor in the setting of 1.2mm lower uterine segment with Hx x2. Per conversation with VAN DRIVER HELPER, she will be meeting with patient to offer support and will complete Initial Assessment for patient. RNCM will remain available throughout patient's admission to assist with any discharge planning needs. Charlotte Chatterjee RN Case Manager [facility] and covering for Pedi/PICU/ICN [phone] Pager [phone] * Consult Note - Jose Mcdonald MD - 03/18/2023 9:10 AM EDT Requested by Rima MENESES to provide a consult to Isabel Julian and discuss the anticipated evaluation and management of an born at 32 weeks gestation. Isabel is a 27 y/o G 4 P 2 A+/Ab neg/Rubella immune/HBsAg neg/HIV neg/Syphilis unknown/GBS unknown/GC neg/Chlamydia neg women at 32 weeks gestation and admitted to the [facility] due to labor in setting of thin [...] EDT) Glucose, Urine Dipstick Negative Negative mg/dL [facility] Protein, Urine Dipstick Negative Negative mg/dL [facility] Bilirubin, Urine Dipstick Negative Negative mg/dL [facility] Comment: Clinical correlation required for positive Urine Bilirubin results as false positive may occur with some drugs and drug related products. If a false positive is suspected a serum total bilirubin should be considered if clinically indicated. Urobilinogen, Urine Dipstick Normal Normal mg/dL [facility] pH, Urn (dipstick) 7.0 5.0 - 8.0 [facility] Blood, Urine Dipstick Negative Negative mg/dL [facility] Ketone, Urine Dipstick 15(A) Negative mg/dL [facility] Nitrite, Urine Dipstick Negative Negative [facility] Leukocytes, Urine Dipstick Negative Negative mcL [facility] Appearance, Urine Dipstick Clear Clear [facility] Specific [place] Urine Automated 1.008 1.005 - 1.030 [facility] Color, Urine Dipstick Yellow Yellow [facility] Reflex to Culture No [facility] Clean Catch Urine 03/18/2023 2:35 AM EDT 03/18/2023 2:45 AM EDT Narrative Resulting Agency Comment Spec In Lab Samuel Barron MD URINE ORDERABLES Performing Organization Address [facility] Co de Phone Number [facility] [place] [address] * Type and Screen Validity (03/18/2023 1:50 AM EDT) T&S only valid at [facility] Comment:This Type and Screen result is only valid at the [facility] Blood 03/18/2023 1:50 AM EDT 03/18/2023 2:06 AM EDT Narrative Resulting Agency Comment Spec In Lab Lyric Garber DO BLOOD BANK LAB ORDER SHABNAM Performing Organization Address City/[facility]/[place] [address] * ABORH Recheck Status (03/18/2023 1:50 AM EDT) ABORH Type Recheck Completed [facility] Blood 03/18/2023 1:50 AM EDT 03/18/2023 2:06 AM EDT Narrative Resulting Agency Comment Spec In Lab Lyric Garber DO BLOOD [place] [address] * (ABNORMAL) Differential, Automated (03/18/2023 1:50 AM EDT) Neutrophil % 65.0 % [facility] Neutrophil Absolute 7.31(H) 1.70 - 6.10 x10(3)/mc L [facility] Lymph % 24.9 % [facility] Lymphocytes Abs 2.8 0.9 - 3.2 x10(3)/mc L [facility] Monocyte % 7.6 % [facility] Monocyte Abs 0.9 0.3 - 0.9 x10(3)/mc L [facility] Eos % 0.6 % [facility] Eosinophils Abs 0.1 0.0 - 0.4 x10(3)/mc L [facility] Basophil % 0.4 % [facility] Baso Absolute 0.0 0.0 - 0.1 x10(3)/mc L [facility] Immature Gran % 1.50 % [facility] Comment: Immature granulocytes(IG's)percentage and absolute count will include metamyelocytes, myelocytes, and promyelocytes. Blood smears from CBCs yielding IG's will be scanned manually for concordance. If this scan disagrees with the automated IG or if promyelocytes are noted, a manual differential will be performed. Immature Gran Absolute 0.17(H) 0.00 - 0.04 x10(3)/mc L [facility] Blood 03/18/2023 1:50 AM EDT 03/18/2023 2:10 AM EDT Narrative Resulting Agency Comment Spec In Lab Lyric Garber DO HEMATOLOGY ORDERABLE S [facility] [place] [address] * (ABNORMAL) Hemogram (03/18/2023 1:50 AM EDT) White Blood Cell 11.3(H) 4.0 - 9.5 x10(3)/mc L [facility] Red Blood Cell 3.77(L) 4.00 - 5.21 x10(6)/mc L [facility] Hemoglobin 11.3(L) 11.7 - 15.5 g/dL [facility] Hematocrit 32.9(L) 35.7 - 45.8 % [facility] Mean Cell Volume 87.3 82.6 - 94.4 fL [facility] Mean Cell Hemoglobin 30.0 27.1 - 32.0 pg [facility] Mean Cell Hemoglobin Concentration 34.3 31.7 - 35.0 g/dL [facility] Platelet 130(L) 145 - 357 x10(3)/mc L [facility] RDW Standard Deviation 40.3 37.0 - 46.0 fL [facility] RDW coefficient of variation 12.8 11.5 - 14.1 % [facility] Mean Platelet Volume 13.0(H) 7.6 - 12.9 fL [facility] NRBC% auto 0.0 % [facility] NRBC Absolute 0.000 0.000 - 0.000 x10(3)/ L [facility] Blood 03/18/2023 1:50 AM EDT 03/18/2023 2:10 AM EDT Narrative Resulting Agency Comment Spec In Lab Lyric Garber DO HEMATOLOGY ORDERABLE S [facility] [place] [address] * Antibody screen (03/18/2023 1:50 AM EDT) Ab Screen Interp Negative [facility] Expires at 2359 on: 03/21/2023 [facility] Blood 03/18/2023 1:50 AM EDT 03/18/2023 2:06 AM EDT Narrative Resulting Agency Comment Spec In Lab Lyric Garber DO BLOOD BANK LAB ORDER SHABNAM [facility] [place] [address] * ABO/Rh Typing (03/18/2023 1:50 AM EDT) ABORH Type A Pos [facility] Blood 03/18/2023 1:50 AM EDT 03/18/2023 2:06 AM EDT Narrative Resulting Agency Comment Spec In Lab Lyric Garber DO BLOOD BANK LAB ORDER SHABNAM Performing Organization Address City/[facility] [place] [address] documented in this encounter Visit Diagnoses Diagnosis [...] 1 dose, On Wed03/18/23 at 0145 0141 ([facility] - Prov ider: Mary Malik RN) [...] Routine documented in this encounter Care Teams Shredding Machine Tender Relationship Specialty Start Date End Date Analisa Martinez PA [address] [place] [address] PCP - General 11/30/22 documented as of this encounter
--- OUTSIDE RECORDS SUMMARY | 2024-08-08 12:00 | XMS_ITS | Encounter Summary ---
Author Organization [facility] [place] [address] Care Team Providers Care Warehouse Operator Name Role Phone Analisa Martinez Primary Care Provider [phone] Encounter Details Date Type Department Care Team (Late st Contact Info) Description 04/16/2023 Orders Only Obstetrics [place] [address] Ashley Valdes MD [facility] [place] [address] Social History Tobacco Use Types Packs/Day Years [...] on filedocumented in this encounter Care Teams Warehouse Operator Relationship Specialty Start Date End Date Analisa Martinez PA [address] [place] [address] PCP - General 11/30/22 documented as of this encounter
--- OUTSIDE RECORDS SUMMARY | 2024-08-08 12:00 | XMS_ITS | Encounter Summary ---
[place] [address] Care Team Providers Care De Ionizer Operator Name Role Phone Analisa Martinez Primary Care Provider [phone] Encounter Details Date Type Department Care Team (Latest Contact Info) Description 04/20/2023 2:30 PM EDT Clinical Support Obstetrics [place] [address] H/O section Social History Tobacco [...] status documented in this encounter Care Teams De Ionizer Operator Relationship Specialty Start Date End Date [place] [address] PCP - General 11/30/22 documented as of this encounter
--- OUTSIDE RECORDS SUMMARY | 2024-08-08 12:00 | XMS_ITS | Encounter Summary ---
Author Organization [facility] Address [facility] [place] [address] Care Team Providers Care Medicaid Business Analyst Name Role Phone Analisa Martinez Primary Care Provider [phone] Encounter Details Date Type Department Care Team [...] on filedocumented in this encounter Care Teams Medicaid Business Analyst Relationship Specialty Start Date End Date [place] [address] PCP - General 11/30/22 documented as of this encounter
--- OUTSIDE RECORDS SUMMARY | 2024-08-08 12:00 | XMS_ITS | Encounter Summary ---
[place] [address] Care Team Providers Care Clinical Rehabilitation Specialist Name Role Phone Analisa Martinez Primary Care Provider [phone] Reason for Visit * Auth/Cert (Routine) Specialty Diagnoses / Procedures Referred By Contac t Referred To Contact Diagnoses prrior with window Procedures PRO DELIVERY ONLY ER OBSVO Sujata Prater MD [facility] [address] OBSTET[place]ICS [place] [address] [facility] Referral ID Status Reason Start Date Expiration Date Visits Re quested Visits Authorized [id number] 1 1 Encounter Details Date Type Department Care Team (Late st Contact Info) Description 04/12/2023 3:14 PM EDT Anesthesia Event [place] [phone] Reyna Ureña MD Anesthesia Record Procedure Summary Procedure Name Responsible [...] Ringers 2,800 mL * Agents Name O2 Air N2O * Blood No blood administrations on file. Lines, Drains, and Airways Type Details Placement Removal Incision 04/12/23; 1501; anterior; abdomen; low transverse 04/12/23 1501 by Tami Noel, RN (RETIRED) Peripheral IV Line - Single Lumen 04/12/23; 1215; cephalic vein (lateral side of arm), left; ovid-fns-kcgvhh catheter system; Anatomical Landmarks; 20 gauge, 1 in length; John Christensen RN VAS; distraction, tolerated well; 04/15/23; 1018 04/12/23 1215 by Myah Christensen RN 04/15/23 1018 by Tessie Hernandez RN (RETIRED) Peripheral IV Line - Single Lumen 04/12/23; 1234; basilic vein (medial side of arm), left; jlda-afb-keromm catheter system; Anatomical Landmarks; 20 gauge, 1 [...] Procedure Summary Date: 04/12/23 Room / Location: [facility] OR [address] [place] [address] [facility] Anesthesia Start: 1513 Anesthesia Stop: 1745 Procedures: @ DELIVERY ([facility] 16.13) (Bilateral: Abdomen) @FALLOPIAN TUBE(S), TRANSECTION OR LIGATION, ABD APPROACH, POST- ([facility] 5.28) (Abdomen) Diagnosis: Dehiscence of old uterine scar with extension before onset of labor, delivered (prrior with window) Surgeons: Mary Headley MD Responsible Provider: Reyna Ureña MD Anesthesia Type: spinal ASA Status: 3 All Anesthesia Providers: Anesthesiologist: Reyna Ureña MD Engineering Lecturer: Rupert Chavez MD; Seamus Hernandez MD Vitals [...] 7 cm Technique for Loss of Resistance: MGADY saline Dressing/Secured with: Tegaderm Number of attempts: [...] legs shortly after spinal injection. Performed by: Resident/LIBRARY HELPER: Rupert Chavez MD Authorized by: Reyna Ureña MD ~~~~~~~~~~~~~~~~~~~~~~~~~~~~~~~~~~~~~~~~~~~~~~~~~~~~~~~~~~~~ * Anesthesia Preprocedure Evaluation - Reyna Ureña MD - 04/12/2023 7:21 AM EDT Pre-Anesthesia Evaluation for: Isabel Julian a 27 y.o. female. Procedure(s): @ DELIVERY ([facility] 16.13) Patient Active Problem List Diagnosis Date [...] & PLAN: Spinal, PIV Rupert Chavez MD Engineering Lecturer, PGY3/CA2 Pager # [phone] Region - Informed Consent: Anesthetic plan and [...] insertion: L3-4 Needle approach: midline Needle Type: Tuohy and [employer] Gauge: 25 and 17 Needle length: 3.5 [...] shortly after spinal injection. Performed by: ?? Resident/LIBRARY HELPER: ? Rupert Chavez MD Authorized by: Reyna Ureña MD ~~~~~~~~~~~~~~~~~~~~~~~~~~~~~~~~~~~~~~~~~~~~~~~~~~~~~~~~~~~~ Reyna Ureña MD [facility] documented in this encounter Visit Diagnoses Not [...] mg documented in this encounter Care Teams Clinical Rehabilitation Specialist Relationship Specialty Start Date End Date Analisa Martinez PA [address] [place] [address] PCP - General 11/30/22 documented as of this encounter
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
--- OUTSIDE RECORDS SUMMARY | 2024-08-08 12:00 | XMS_ITS | Encounter Summary ---
Author Organization [facility] Address [facility] [place] [address] Care Team Providers Care Commodity Analyst Name Role Phone Analisa Martinez Primary Care Provider [phone] Encounter Details Date Type Department Care Team (Late st Contact Info) Description 04/05/2023 Telephone Obstetrics [place] [phone] Ewa Kwon MD [facility] DR OBSTETRICS & [place] [address] Social History Tobacco Use Types Packs/Day Years [...] on filedocumented in this encounter Care Teams Commodity Analyst Relationship Specialty Start Date End Date Analisa Martinez PA [address] [place] [address] PCP - General 11/30/22 documented as of this encounter
--- OUTSIDE RECORDS SUMMARY | 2024-08-08 12:00 | XMS_ITS | Encounter Summary ---
[place] [address] Care Team Providers Care Mounter Hand Name Role Phone Analisa Martinez Primary Care Provider [phone] Encounter Details Date Type Department Care Team (Late st Contact Info) Description 04/23/2023 Telephone Obstetrics [place] [address] Mery Braswell, RN Social History [...] for this as well. Routed note to [facility] on-call, Dr. Haas. documented in this encounter Plan of Treatment Not on file documented as of this encounter Visit Diagnoses Not on filedocumented in this encounter Care Teams Mounter Hand Relationship Specialty Start Date End Date Analisa Martinez PA [address] [place] [address] PCP - General 11/30/22 documented as of this encounter
--- OUTSIDE RECORDS SUMMARY | 2024-08-08 12:00 | XMS_ITS | Encounter Summary ---
[place] [address] Care Team Providers Care Supervisor Pumping Name Role Phone Analisa Matrinez Primary Care Provider [phone] Encounter Details Date Type Department Care Team (Late st Contact Info) Description 03/18/2023 Telephone Obstetrics [place] [phone] Loida Hall RN Social History Tobacco Use [...] filedocumented in this encounter Care Teams Supervisor Pumping Relationship Specialty Start Date End Date Analisa Martinez PA [address] [place] [address] PCP - General 11/30/22 documented as of this encounter
--- OUTSIDE RECORDS SUMMARY | 2024-08-08 12:00 | XMS_ITS | Encounter Summary ---
Author Organization [facility] Address [facility] [place] [address] Care Team Providers Care Archives Director Name Role Phone Analisa Martinez Primary Care Provider [phone] Encounter Details Date Type Department Care Team [...] on filedocumented in this encounter Care Teams Archives Director Relationship Specialty Start Date End Date Analisa Martinez PA [address] [place] [address] PCP - General 11/30/22 documented as of this encounter
--- OUTSIDE RECORDS SUMMARY | 2024-08-08 12:00 | XMS_ITS | Encounter Summary ---
Author Organization [facility] [place] [address] Care Team Providers Care Grain Mixer Name Role Phone Analisa Martinez Primary Care Provider [phone] Encounter Details Date Type Department Care Team (Late st Contact Info) Description 04/24/2023 Telephone Obstetrics [place] [phone] Vicente Zhang MD [facility] OBSTETRICS & [place] [address] Social History Tobacco Use Types Packs/Day Years [...] the next 12 hours. [facility] come by to triage for evaluation. regulatory affairs manager updated. Vicente Zhang MD, PGY3 Obstetrics and Gynecology 04/24/2023 documented in this encounter Plan of Treatment Not on file documented as of this encounter Visit Diagnoses Not on filedocumented in this encounter Care Teams Grain Mixer Relationship Specialty Start Date End Date Analisa [place] [address] PCP - General 11/30/22 documented as of this encounter
--- OUTSIDE RECORDS SUMMARY | 2024-08-08 12:00 | XMS_ITS | Encounter Summary ---
[place] [address] Care Team Providers Care Electrical Maintenance Supervisor Name Role Phone Analisa Martinez Primary Care Provider [phone] Encounter Details Date Type Department Care Team (Late st Contact Info) Description 04/01/2023 Telephone Obstetrics [place] [address] Loida Hall RN Social History [...] Returned call to Isabel Julian GA: 34w5d [facility] patient Isabel left a message with [...] on filedocumented in this encounter Care Teams Electrical Maintenance Supervisor Relationship Specialty Start Date End Date Analisa Martinez PA [address] [place] [address] PCP - General 11/30/22 documented as of this encounter
--- OUTSIDE RECORDS SUMMARY | 2024-08-08 12:00 | XMS_ITS | Encounter Summary ---
Author Organization [facility] Address [facility] [place] [address] Care Team Providers Care Imaging Center Manager Name Role Phone Analisa Martinez Primary Care Provider [phone] Encounter Details Date Type Department Care Team [...] * Note - Analisa Shepard RN - 04/22/2023 2:00 PM EDT This note was copied from a baby's chart. Met with Isabel in the pumping room. She met with a counselor at [facility] who encouraged her to pump every hour [...] have follow up support with Stephany at [facility] where she plans cristinaee MD Analisa Robertson RN, IBCLC [facility] documented in this encounter Plan of Treatment Not on file documented as of this encounter Visit Diagnoses Not on filedocumented in this encounter Care Teams Imaging Center Manager Relationship Specialty Start Date End Date Analisa [place] [address] PCP - General 11/30/22 documented as of this encounter
--- OUTSIDE RECORDS SUMMARY | 2024-08-08 12:00 | XMS_ITS | Encounter Summary ---
Author Organization [facility] Address [facility] [address] Care Team Providers Care Construction Worker Name Role Phone Analisa Martinez Primary Care Provider [phone] Encounter Details Date Type Department Care Team (Late st Contact Info) Description 03/18/2023 11:59 PM EDT Anesthesia [place] [address] Tami Jaramillo MD [facility] DR [place] [address] Anesthesia Record Procedure Summary Procedure Name Responsible [...] Notes * Anesthesia Preprocedure Evaluation - Tami Jaramlilo MD - 03/18/2023 2:56 AM EDT Images [...] on filedocumented in this encounter Care Teams Construction Worker Relationship Specialty Start Date End Date Analisa Martinez PA [address] [place] [address] PCP - General 11/30/22 documented as of this encounter
--- OUTSIDE RECORDS SUMMARY | 2024-08-08 12:00 | XMS_ITS | Encounter Summary ---
Author Organization [facility] Address [facility] [place] [address] Care Team Providers Care Construction Equipment Mechanic Helper Name Role Phone Analisa Martinez Primary Care Provider [phone] Reason for Visit * Reason Comments Routine Visit Encounter Details Date Type Department Care Team (Late st Contact Info) Description 03/22/2023 4:00 PM EDT Routine Obstetrics [place] [address] Nitza Murguia MD [facility] [address] OBSTETRICS [place] [address] GA: 33w2d Social History Tobacco Use Types [...] disorders documented in this encounter Care Teams Construction Equipment Mechanic Helper Relationship Specialty Start Date End Date [place] [address] PCP - General 11/30/22 documented as of this encounter
--- OUTSIDE RECORDS SUMMARY | 2024-08-08 12:00 | XMS_ITS | Encounter Summary ---
Author Organization [facility] Address [facility] [place] [address] Care Team Providers Care Maintenance Associate Name Role Phone Analisa Martinez Primary Care Provider Reason for Visit * Reason Comments Follow-up incision c heck, s/p 04/12/23 with tubal Encounter Details Date Type Department Care Team (Late st Contact Info) Description 04/28/2023 2:00 PM EDT Office Visit Obstetrics [place] [address] Sophie Scanlon MD [facility] [address] [place] [address] Separation of wound with drainage, (Primary Dx); Surgical wound infection; H/O section Social History Tobacco Use Types Packs/Day Years Used Date Smoking Tobacco: Every Day Cigarettes Smokeless Tobacco: Never Comments:Cut back from 2 pac ks Alcohol Use Standard Drinks/Week Comments Not Currently 0 (1 standard drink = 0.6 oz pur e alcohol) [facility] Inpatient Questions Answer Date Recorded Does [...] seen four days ago on the birthing [facility] after noting draining from her incision. [...] 16.13) performed by Mary Headley MD at [facility] PRO LIGATE FALLOPIAN TUBE, N/A 04/12/2023 @FALLOPIAN TUBE(S), TRANSECTION OR LIGATION, ABD APPROACH, POST- (WRVU 5.28) performed [facility] Family History Problem Relation Age [...] mg by mouth daily. vitamin 27 & [id number]-EX 60 mg iron-1 mg Tablet Take 1 [...] status documented in this encounter Care Teams Maintenance Associate Relationship Specialty Start Date End Date Analisa Martinez PA [address] [place] [address] PCP - General 11/30/22 documented as of this encounter
--- OUTSIDE RECORDS SUMMARY | 2024-08-08 12:01 | XMS_ITS | Encounter Summary ---
Author Organization [facility] [place] [address] Care Team Providers Care Tong Hooker Name Role Phone Analisa Martinez Primary Care Provider [phone] Reason for Visit * Reason Comments Routine Visit Encounter Details Date Type Department Care Team (Late st Contact Info) Description 03/10/2023 4:30 PM EDT Routine Obstetrics [place] [address] Casey Armendariz MD [facility] [address] OBSTET[place] [address] GA: 31w4d Social History Tobacco Use Types [...] disorders documented in this encounter Care Teams Tong Hooker Relationship Specialty Start Date End Date Analisa [place] [address] PCP - General 11/30/22 documented as of this encounter
--- OUTSIDE RECORDS SUMMARY | 2024-08-08 12:01 | XMS_ITS | Encounter Summary ---
Author Organization [facility] Address [address] [place] [address] Care Team Providers Care Airport Electrician Name Role Phone Joanna Alcaraz NP Primary Care Provider [phone] Encounter Details Date Type Department Care Team (Late st Contact Info) Description 10/29/2022 Lab Requisition [facility] Pathology & Laboratory Medicine - [facility] [address] [place] [address] Outr Resulting Lab, Provider Social History Tobacco Use Types Packs/Day Years Used Date Smoking Tobacco: Never Assessed Comments Unknown Sex and Gender Information Value Date Recorded Sex Assigned at Not on file Legal Sex Female 8:55 EDT Gender Identity Not on file Sexual Orientation [...] Ab Positive See Note 10/30/2022 10:13 EST [facility] Comment:Presence of detectab le Varicella Zoster virus IgG antibodies. Blood VENOUS BLOOD / Unknown 10/29/2022 10:23 EST 10/29/2022 17:12 EST us Provider Outr Resulting Lab IMMUNOLOGY AND SEROL OGY ORDERABLES Final Result Performing Organization Address City/[facility]/ZIP Co de Phone Number [facility] [address] [place] [address] * RUBELLA IGG ANTIBODY (10/29/2022 10:23 EST) Rubella IgG Ab Positive See Note 10/30/2022 10:14 EST [facility] Comment:Positive for IgG ant ibodies to Rubella virus. Blood VENOUS BLOOD / Unknown 10/29/2022 10:23 EST 10/29/2022 17:12 EST us Provider Outr Resulting Lab CHEMISTRY & BLOOD GA S ORDERABLES Final Result Performing Organization Address [facility] Co de Phone Number [facility] [address] [place] [address] documented in this encounter Visit Diagnoses Not on filedocumented in this encounter Care Teams Airport Electrician Relationship Specialty Start Date End Date Joanna Alcaraz NP [address] [place] [phone] PCP - General 08/23/19 documented as of this encounter
--- OUTSIDE RECORDS SUMMARY | 2024-08-08 12:01 | XMS_ITS | Encounter Summary ---
Author Organization [facility] [place] [address] Care Team Providers Care Used Car Sales Manager Name Role Phone Melody Koenig MD Primary Care Provider [phone] Encounter Details Date Type Department Care Team (Late st Contact Info) Description 11/26/2022 Notes Only Obstetrics [place] [address] Fide Haas MD [facility] OBSTET[place] [address] Social History Tobacco Use Types Packs/Day Years [...] on filedocumented in this encounter Care Teams Used Car Sales Manager Relationship Specialty Start Date End Date Melody oKenig MD [address] [place], [place] [id number] PCP - General Family Medicine 10/30/22 11/29/22 documented as of this encounter
--- OUTSIDE RECORDS SUMMARY | 2024-08-08 12:01 | XMS_ITS | Encounter Summary ---
Author Organization [facility] [place] [address] Care Team Providers Care Peoplesoft Analyst Name Role Phone Melody Koenig MD Primary Care Provider [phone] Encounter Details Date Type Department Care Team (Late st Contact Info) Description 11/26/2022 Orders Only Obstetrics [place] [address] Fide Haas MD [facility] [address] OBSTETRICS [place] [address] Back pain affecting in second trimester Social [...] EST Returned patient call. Had visit to [facility] for pain and is angry with their [...] trimester documented in this encounter Care Teams Peoplesoft Analyst Relationship Specialty Start Date End Date Melody Koenig MD [address] [place] [address] PCP - General Family Medicine 10/30/22 11/29/22 documented as of this encounter
--- OUTSIDE RECORDS SUMMARY | 2024-08-08 12:01 | XMS_ITS | Encounter Summary ---
Author Organization [facility] Address [address] [place] [address] Care Team Providers Care Sports Director Name Role Phone Joanna Alcaraz NP Primary Care Provider [phone] Encounter Details Date Type Department Care Team (Late st Contact Info) Description 10/31/2020 Lab Requisition [facility] Pathology & Laboratory Medicine - [facility] [address] [place] [address] Outr Resulting Lab, Provider Social History Tobacco [...] Unknown 10/31/2020 16:45 EST 10/31/2020 21:01 EST us Provider Outr Resulting Lab MICROBIOLOGY - GENER AL ORDERABLES Final Result [facility] [address] [place] [address] * COVID-19 TESTING (10/31/2020 16:45 EST) COVID-19 rt-PCR Result Negative Negative 11/01/2020 18:17 EST [facility] Comment: This test has [...] developed and its performance characteristics determined by [facility]. It has not been cleared or [...] testing. This test is based on the [facility] COVID-19 Emergency Use Authorization (EUA) assay, with minor modification as defined by the FDA Performed on the Jintronixo 7 Flex RT-PCR System. Performing Lab [facility] 11/01/2020 18:17 EST [facility] Swab 10/31/2020 16:4 5 EST 10/31/2020 21:01 EST us Provider Outr Resulting Lab MICROBIOLOGY - GENER AL ORDERABLES Final Result [facility] [address] [place] [address] documented in this encounter Visit Diagnoses Not on filedocumented in this encounter Care Teams Sports Director Relationship Specialty Start Date End Date Joanna Alcaraz NP [address] [place] [phone] PCP - General 08/23/19 documented as of this encounter
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
--- OUTSIDE RECORDS SUMMARY | 2024-08-08 12:01 | XMS_ITS | Encounter Summary ---
Author Organization [facility] Address [address] [place] [address] Care Team Providers Care Escrow Closer Name Role Phone Noris Tran Duncan CANTOR-Ron Primary Care Provider [phone] Encounter Details Date Type Department Care Team (Late st Contact Info) Description 12/22/2018 Historical Results Only [facility] [address] [place] [address] Clarissa Julian MD [address] [place], [place] [...] DESCRIPTION - PMC SOURCE 12/25/2018 11:38 EDT [facility] Comment:Nasopharynx ARNALDO RESULTS/ORGANISM ID - PMC ARNALDO Results 12/25/2018 11:38 EDT [facility] Comment:NO GROUP A BETA STRE PTOCOCCI ISOLATED ARNALDO STATUS/SUSCEPTIB ILITY - PMC FINAL 12/25/2018 11:38 EDT [facility] Comment: Final 12/25/2018 Test performed [place] [address] If you have questions about this culture, please contact [facility] Micro Department at [phone]. 12/22/2018 23:1 5 EDT 12/22/2018 23:26 EDT us Clarissa Julian MD MICROBIOLOGY - GENERAL ORD ERABLES Final Result [facility] * RAPID STREP GRP A; CULTURE IF NEG - PMC (12/22/2018 23:15 EDT) GRP A STREP AG RESULTS: - PMC NEGATIVE-CULT URE WILL BE PERFORMED 12/22/2018 23:29 EDT [facility] 12/22/2018 23:1 5 EDT 12/22/2018 23:26 EDT Comment:SWAB us Clarissa Julian MD MICROBIOLOGY - GENERAL ORD ERABLES Final Result [facility] documented in this encounter Visit Diagnoses Not on filedocumented in this encounter Care Teams Escrow Closer Relationship Specialty Start Date End Date Noris Tran, RPA-C [address] [place] [address] PCP - General 03/06/13 08/22/19 documented as of this encounter
--- OUTSIDE RECORDS SUMMARY | 2024-08-08 12:01 | XMS_ITS | Encounter Summary ---
Author Organization [facility] Address [address] [place] [address] Care Team Providers Care Clinical Research Coordinator Name Role Phone Joanna Alcaraz NP Primary Care Provider [phone] Encounter Details Date Type Department Care Team (Late st Contact Info) Description 10/29/2022 Lab Requisition [facility] Pathology & Laboratory Medicine - [facility] [address] [place], [place] [address] Outr Resulting Lab, Provider Social History Tobacco [...] documented in this encounter Results * HOLD [facility] (10/29/2022 10:23 EST) Hold Hold 10/29/2022 18:15 EST [facility] Blood VENOUS BLOOD / Unknown 10/29/2022 10:23 EST 10/29/2022 17:12 EST us Provider Outr Resulting Lab LAB INFO SERVICE AND SUPPORT & PHONE RESULT Final Result [facility] [address] [place] [address] * HOLD SST (10/29/2022 10:23 EST) Hold Hold 10/29/2022 18:15 EST [facility] Blood VENOUS BLOOD / Unknown 10/29/2022 10:23 EST 10/29/2022 17:12 EST us Provider Outr Resulting Lab LAB INFO SERVICE AND SUPPORT & PHONE RESULT Final Result Performing Organization Address [facility]/ZIP Co de Phone Number [facility] [address] [place] [address] * HEPATITIS B SURFACE ANTIGEN (10/29/2022 10:23 EST) Hep B Surface Ag Negative Negative 10/30/2022 9:48 EST [facility] Blood VENOUS BLOOD / Unknown 10/29/2022 10:23 EST 10/29/2022 17:12 EST us Provider Outr Resulting Lab CHEMISTRY & BLOOD GA S ORDERABLES Final Result Performing Organization Address [facility]/ZIP Co de Phone Number [facility] [address] [place] [address] * HEPATITIS C AB W REFLEX TO HCV RNA BY PCR (10/29/2022 10:23 EST) Hep C Antibody Negative Negative 10/30/2022 10:33 EST [facility] Blood VENOUS BLOOD / Unknown 10/29/2022 10:23 EST 10/29/2022 17:12 EST us Provider Outr Resulting Lab CHEMISTRY & BLOOD GA S ORDERABLES Final Result [facility] [address] [place] [address] documented in this encounter Visit Diagnoses Not on filedocumented in this encounter Care Teams Clinical Research Coordinator Relationship Specialty Start Date End Date Joanna Alcaraz NP [address] [place] [phone] PCP - General 08/23/19 documented as of this encounter
--- OUTSIDE RECORDS SUMMARY | 2024-08-08 12:01 | XMS_ITS | Encounter Summary ---
Author Organization [facility] Address [facility] [place] [address] Care Team Providers Care Shot Polisher And Inspector Name Role Phone Analisa Martinez Primary Care Provider [phone] Encounter Details Date Type Department Care Team [...] on filedocumented in this encounter Care Teams Shot Polisher And Inspector Relationship Specialty Start Date End Date [place] [address] PCP - General 11/30/22 documented as of this encounter
--- OUTSIDE RECORDS SUMMARY | 2024-08-08 12:01 | XMS_ITS | Patient Health Record ---
Author Organization [facility] Address [address] [place] [address] Care Team Providers Care Rip Sawyer Name Role Phone DESTINI DAMON MD Primary [...] Insured Coverage Start Date Coverage End Date [facility] [address] [place], [place] [id number] December, Child - Insured has Financial Responsibility [place] [address] DENISE MENDEZ Self - patient is the insured MEDICAL (GENERAL) HISTORY Medical History History ICD Code Anxiety PTSD Fatigue Surgical History Surgery Date(Month/Year)
--- OUTSIDE RECORDS SUMMARY | 2024-08-08 12:01 | XMS_ITS | Encounter Summary ---
Author Organization [facility] Address [address] [place] [address] Care Team Providers Care Police Investigator Name Role Phone Jonana Alcaraz NP Primary Care Provider + [phone] Encounter Details Date Type Department Care Team (Late st Contact Info) Description 05/01/2022 Lab Requisition [facility] Pathology & Laboratory Medicine - [facility] [address] [place] [address] Outr Resulting Lab, Provider Social History Tobacco [...] 04/30/2022 18:2 6 EDT 05/01/2022 17:42 EDT us Provider Outr Resulting Lab MICROBIOLOGY - GENER AL ORDERABLES Final Result [facility] [address] [place] [address] * COVID-19 TESTING (04/30/2022 18:26 EDT) COVID-19 rt-PCR Result Negative Negative 05/02/2022 12:00 EDT [facility] Comment: This test has [...] was performed using the thelma SARS-CoV-2 assay ([employer] on the Thelma 6800 System Performing Lab [facility]ma [address] [facility] 05/02/2022 12:00 EDT [facility] Swab 04/30/2022 18:2 6 EDT 05/01/2022 17:42 EDT us Provider Outr Resulting Lab MICROBIOLOGY - GENER AL ORDERABLES Final Result [facility] [address] [place] [address] documented in this encounter Visit Diagnoses Not on filedocumented in this encounter Care Teams Police Investigator Relationship Specialty Start Date End Date Joanna Alcaraz NP [address] [place] [phone] PCP - General 08/23/19 documented as of this encounter
--- OUTSIDE RECORDS SUMMARY | 2024-08-08 12:01 | XMS_ITS | Encounter Summary ---
Author Organization [facility] Address [address] [place] [address] Care Team Providers Care Oiling Machine Operator Name Role Phone Lissa Joanna Seals NP Primary Care Provider + [phone] Encounter Details Date Type Department Care Team (Latest Contact Info) Description 11/15/2020 Lab Requisition [facility] Pathology & Laboratory Medicine - [facility] [address] [place] [address] Melody Koenig MD [address] [place] [phone] Encounter for general adult medical examination without [...] Imaging System with Manual Evaluation 11/22/2020 14:16 [facility] Specimen Adequacy Satisfactory for Evaluation - transformation zone component absent 11/22/2020 14:16 [facility] General Categorization Negative for intraepithelial lesion or malignancy 11/22/2020 14:16 [facility] Attestation . 11/22/2020 14:16 [facility] at 1416 Clinical History See below 11/22/19 14:16 [facility] Performing Lab [facility] 11/22/2020 14:16 [facility] Scanned Images 11/22/2020 14:16 [facility] Papanicolaou smear specimen (specimen) CERVIX UTERI STRUCTURE / Unknown 11/15/2020 11:10 EST 11/18/2020 12:23 EST Melody Koenig MD PATHOLOGY ORDERABLES Final Res ult [facility] [address] [place] [address] * CHLAMYDIA/N. GONORRHOEAE AMPLIFIED RNA, THINPREP (11/15/2020 11:10 EST) Neisseria gonorrhoeae Result Negative Negative 11/18/2020 15:[address] [facility] Chlamydia trachomatis Result Negative Negative 11/18/2020 15:[address] [facility] Papanicolaou smear specimen (specimen) CERVIX UTERI STRUCTURE / Unknown 11/15/2020 11:10 EST 11/18/2020 8:53 EST Melody Koenig MD MICROBIOLOGY - GENERAL ORDERAB LES Final Result [facility] [address] [place] [address] documented in this encounter Visit Diagnoses Diagnosis Encounter for general adult medical examination without abnormal findings Unspecified general medical examination Encounter for screening for malignant neoplasm of cervix Screening for malignant neoplasm of the cervix Encounter for gynecological examination (general) (routine) without abnormal findings documented in this encounter Care Teams Oiling Machine Operator Relationship Specialty Start Date End Date Joanna Alcaraz NP [address] [place] [phone] PCP - General 08/23/19 documented as of this encounter
--- OUTSIDE RECORDS SUMMARY | 2024-08-08 12:01 | XMS_ITS | Encounter Summary ---
[place] [address] Care Team Providers Care Primary Clinician Name Role Phone Analisa Martinez Primary Care Provider [phone] Encounter Details Date Type Department Care Team (Late st Contact Info) Description 02/15/2023 Telephone Obstetrics [place] [address] Loida Hall RN Social History [...] Returned call to Isabel Julian [place] 28w2d [facility] patient Isabel called with questions about gtt, wanted to know how long she be fasting before the test. Returned call and let Isabel know that it is not necessary to fast before the test. documented in this encounter Plan of Treatment Not on file documented as of this encounter Visit Diagnoses Not on filedocumented in this encounter Care Teams Primary Clinician Relationship Specialty Start Date End Date Analisa Martinez PA [address] [place] [address] PCP - General 11/30/22 documented as of this encounter
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
--- OUTSIDE RECORDS SUMMARY | 2024-08-08 12:01 | XMS_ITS | Encounter Summary ---
Author Organization [facility] Address [address] [place] [address] Care Team Providers Care Ems Manager Name Role Phone Noris Tran Primary Care Provider [phone] Encounter Details Date Type Department Care Team (Late st Contact Info) Description 03/06/2013 Results Only Imaging [facility] [phone] Noris Tran RPA-C [address] [place], [place] [id number] Social History Tobacco Use Types Packs/Day Years [...] on filedocumented in this encounter Care Teams Ems Manager Relationship Specialty Start Date End Date Noris Tran RPA-C [address] [place] [address] PCP - General 03/06/13 08/22/19 documented as of this encounter
--- OUTSIDE RECORDS SUMMARY | 2024-08-08 12:01 | XMS_ITS | Encounter Summary ---
Author Organization [facility] Address [facility] [place] [address] Care Team Providers Care Dredge Engineer Name Role Phone Analisa Martinez Primary Care Provider [phone] Encounter Details Date Type Department Care Team [...] on filedocumented in this encounter Care Teams Dredge Engineer Relationship Specialty Start Date End Date Analisa [place] [address] PCP - General 11/30/22 documented as of this encounter
--- OUTSIDE RECORDS SUMMARY | 2024-08-08 12:01 | XMS_ITS | Encounter Summary ---
Author Organization [facility] Address [address] [place] [address] Care Team Providers Care Performance Test Consultant Name Role Phone Noirs Tran Primary Care Provider Encounter Details Date Type Department Care Team (Latest Contact Info) Description 05/14/2014 18:48 EDT - 05/14/2014 18:49 EDT Hospital Encounter [address] [address] Deb Pan MD [address] [address] Discharge Disposition: Home or Self Care Social [...] on filedocumented in this encounter Care Teams Performance Test Consultant Relationship Specialty Start Date End Date Noris Tran RPA-C [address] [place] [address] PCP - General 03/06/13 08/22/19 documented as of this encounter
--- OUTSIDE RECORDS SUMMARY | 2024-08-08 12:01 | XMS_ITS | Encounter Summary ---
Author Organization [facility] Address [address] [place] [address] Care Team Providers Care Shipwright Name Role Phone Joanna Alcaraz NP Primary Care Provider + [phone] Encounter Details Date Type Department Care Team (Late st Contact Info) Description 10/29/2022 Lab Requisition [facility] Pathology & Laboratory Medicine - [facility] [address] [place], [place] [address] Outr Resulting Lab, Provider Social History Tobacco [...] 4th Generation Negative Negative 10/30/2022 10:21 EST [facility] Comment:If acute HIV-1 infec tion is suspected in a high risk patient, submit plasma specimen for HIV-1 RNA quantitation test. Blood VENOUS BLOOD / Unknown 10/29/2022 10:23 EST 10/29/2022 17:13 EST Narrative [facility] - 10/30/2022 10:21 EST Fourth Generation assay performed on the Siemens Centaur XPT. us Provider Outr Resulting Lab IMMUNOLOGY AND SEROL OGY ORDERABLES Final Result [facility] [address] [place] [address] documented in this encounter Visit Diagnoses Not on filedocumented in this encounter Care Teams Shipwright Relationship Specialty Start Date End Date Joanna Alcaraz NP [address] [place] [phone] PCP - General 08/23/19 documented as of this encounter
--- OUTSIDE RECORDS SUMMARY | 2024-08-08 12:01 | XMS_ITS | Encounter Summary ---
[place] [address] Care Team Providers Care Shafting Worker Name Role Phone Analisa Martinez Primary Care Provider [phone] Encounter Details Date Type Department Care Team (Late st Contact Info) Description 03/02/2023 Telephone Obstetrics [place] [address] Loida Hall RN Social History [...] Returned call to Isabel Julian [place] 30w3d [facility] patient H/O previous section Reports [...] would review her note with the covering [facility] provider and would get back to her if any additional advice. Patient instructed that if she has pain that lasts more than a few minutes, or is not relieved by rest, or if she has pain that is accompanied by vaginal bleeding, cramping and/or nausea/vomiting please let us know right away by calling [phone] (and that after hours provider can be reached by this number as well). Isabel verbalized understanding of and agreement with plan. documented in this encounter Plan of Treatment Not on file documented as of this encounter Visit Diagnoses Not on filedocumented in this encounter Care Teams Shafting Worker Relationship Specialty Start Date End Date [place] [address] PCP - General 11/30/22 documented as of this encounter
--- OUTSIDE RECORDS SUMMARY | 2024-08-08 12:01 | XMS_ITS | Encounter Summary ---
Author Organization [facility] [place] [address] Care Team Providers Care Laboratory Development Technician Name Role Phone Melody Koenig MD Primary Care Provider [phone] Reason for Referral * Consultation (Routine) - Closed Specialty Diagnoses / Procedures Referred By Contac t Referred To Contact Obstetrics and Gynecology Diagnoses History of uterine scar from previous surgery Encounter for supervision of normal , antepartum, unspecified Tova Teran CNM [address] [place] [address] [address] [place] [address] [facility] [place] [address] [place] [address] Referral ID Status Reason Start Date Expiration Date V isits Requested Visits Authorized [id number] Closed Consult, Test & Treat PCP Updated and/or Approved 10/30/2022 10/30/2023 6 6 Encounter Details Date Type Department Care Team (Late st Contact Info) Description 10/30/2022 Transcribe Orders eDH Incoming Referrals [phone] Tova Teran CNM [address] [place] [address] [address] [place], [place] [id number] History of uterine scar from previous surgery; [...] unspecified documented in this encounter Care Teams Laboratory Development Technician Relationship Specialty Start Date End Date Melody Koenig MD [address] [place] [address] PCP - General Family Medicine 10/30/22 11/29/22 documented as of this encounter
--- OUTSIDE RECORDS SUMMARY | 2024-08-08 12:01 | XMS_ITS | Encounter Summary ---
Author Organization [facility] [place] [address] Care Team Providers Care Table Hand Name Role Phone Analisa Martinez Primary Care Provider Encounter Details Date Type Department Care Team (Latest Contact Info) Description 02/19/2023 9:46 AM EDT - 02/19/2023 11:59 PM EDT Hospital [place] [address] Kate Lindsay MD [facility] [place] [address] Dehiscence of old uterine scar with extension [...] by mouth daily. 05/24/2023 vitamin 27 & [id number]-MO 60 mg iron-1 mg Tablet Take 1 [...] have questions, please contact the health career and guidance counselor that requested your imaging first. ?Fide Haas, Staff Physician Electronically Signed Final Report ?? 02/19/2023 10:22 am Narrative 02/19/2023 10:22 AM EDT OBSTETRICS REPORT ?(Signed Final 02/19/2023 10:22 am) PATIENT INFO: ID #: ? [id number] ?: ??[birth year] (27 yrs)(F) Name: ? DENISE JULIAN ? Visit Date: 02/19/2023 10:09 am PERFORMED BY: Performed By: ? Lima Cummins RDMS Attending: ?Waldo MENESES, Fide Weir Referred By: ?Kate LINDSAY Location: ? [place] SERVICE(S) PROVIDED: UOBFOL - Efw - Growth ??- Brown - [id number] ?[id number] UOBTVCER - Transvaginal ??2nd Trimester - ?52991 Cervical Length - [id number] INDICATIONS: 28 weeks gestation of ?Z3A.28 h/o [...] 02/19/2023 10:22 am) PATIENT INFO: ID #: [id number] : [birth year] (27 yrs)(F) Name: DENISE JULIAN Visit Date: 02/19/2023 10:09 am PERFORMED BY: Performed By: Lima Cummins RDMS Attending: Fide Haas MD Referred By: Kate LINDSAY Location: [place] SERVICE(S) PROVIDED: UOBFOL - Efw - Growth - Brown - [id number] UOBTVCER - Transvaginal 2nd Trimester - 93969 Cervical Length - [id number] INDICATIONS: 28 weeks gestation of Z3A.28 h/o [...] have questions, please contact the health career and guidance counselor that requested your imaging first. Fide Haas, Staff Physician Electronically Signed Final Report 02/19/2023 10:22 am E Hyacinth Lindsay MD IMG US OB ORDERAB LES documented in this encounter Visit Diagnoses Diagnosis Dehiscence of old uterine scar with extension before onset of labor, delivered Previous delivery affecting , antepartum Previous delivery, antepartum condition or complication documented in this encounter Care Teams Table Hand Relationship Specialty Start Date End Date Analisa Martinez PA [address] [place] [address] PCP - General 11/30/22 documented as of this encounter
--- OUTSIDE RECORDS SUMMARY | 2024-08-08 12:01 | XMS_ITS | Encounter Summary ---
Author Organization [facility] [place] [address] Care Team Providers Care Business Writer Name Role Phone Analisa Martinez Primary Care Provider Encounter Details Date Type Department Care Team (Late st Contact Info) Description 02/16/2023 Orders Only Obstetrics [place] [address] Nitza Murguia MD [facility] OBSTETRICS [place] [address] Elevated glucose tolerance test (Primary Dx) Social [...] test documented in this encounter Care Teams Business Writer Relationship Specialty Start Date End Date Analisa Martinez PA [address] [place] [address] PCP - General 11/30/22 documented as of this encounter
--- OUTSIDE RECORDS SUMMARY | 2024-08-08 12:01 | XMS_ITS | Encounter Summary ---
Author Organization [facility] Address [facility] [place] [address] Care Team Providers Care Precision Thread Grinder Operator Name Role Phone Melody Koenig MD Primary Care Provider [phone] Reason for Visit * Reason Comments TeleHealth * Consultation (Routine) - Closed Specialty Diagnoses / Procedures Referred By Contac t Referred To Contact Obstetrics and Gynecology Diagnoses History of uterine scar from previous surgery Encounter for supervision of normal , antepartum, unspecified Tova Teran[address] [place] [address] [facility] Preparer [address] [place] [address] Referral ID Status Reason Start Date Expiration Date V isits Requested Visits Authorized [id number] Closed Consult, Test & Treat PCP Updated and/or Approved 10/30/2022 10/30/2023 6 6 Encounter Details Date Type Department Care Team (Latest Contact Info) Description 11/17/2022 11:15 AM EST TH Visit (TeleHealth) Obstetrics [place] [address] Tan Sanches MD [facility] DR OBSTETRICS AND [place] [address] Previous delivery affecting , antepartum; [...] in [place]_x_ [place]__[place]__ [place]__ If not on [facility], working on signing up for my Confirmed has completed any pre-visit questionnaires If has not received required previsit questionnaires, send via [facility] __x_Reviewed medications, allergies, pharmacy, pain/depression, education [...] who have questions, please contact the health healthcare project manager that requested your imaging first. ? Monika Lindsay, Staff Physician Electronically Signed Final Report ?? 12/25/2022 11:23 am Narrative 12/25/2022 11:24 AM EDT OBSTETRICS REPORT ?(Signed Final 12/25/2022 11:23 am) PATIENT INFO: ID #: ? [id number] ?: ??[birth year] (27 yrs)(F) Name: ? DENISE YOUNG ? Visit Date: 12/25/2022 08:38 am PERFORMED BY: Performed By: ? Marcela Edward RDMS Attending: ?Monika Lindsay MD Referred By: ?TAN SANCHES Location: ? [place] SERVICE(S) PROVIDED: [facility] - Detailed Morphology - [id number] ? 55263 UOBTVCER - Transvaginal ??2nd Trimester - ?13556 Cervical Length - [id number] INDICATIONS: 20 weeks gestation of ?Z3A.20 History [...] Arch: ? Visualized SVC: ? Visualized Cardiac [place]: ?Visualized Diaphragm: ? Visualized 3 Vessel View: [...] 12/25/2022 11:23 am) PATIENT INFO: ID #: [id number] : [birth year] (27 yrs)(F) Name: DENISE JULIAN Visit Date: 12/25/2022 08:38 am PERFORMED BY: Performed By: Marcela Edward RDMS Attending: Monika Lindsay MD Referred By: TAN SANCHES Location: [place] SERVICE(S) PROVIDED: [facility] - Detailed Morphology - [id number] UOBTVCER - Transvaginal 2nd Trimester - 13757 Cervical Length - [id number] INDICATIONS: 20 weeks gestation of Z3A.20 History [...] 05/11/23 Best: 20w 6d Det. By: Previous CHEYV: 05/08/23 Ultrasound (11/17/22) TARGETED ANATOMY: Central Nervous [...] Visualized Ductal Arch: Visualized SVC: Visualized Cardiac [place]: Visualized Diaphragm: Visualized 3 Vessel View: Visualized [...] who have questions, please contact the health healthcare project manager that requested your imaging first. Monika Lindsay, [...] delivered documented in this encounter Care Teams Precision Thread Grinder Operator Relationship Specialty Start Date End Date Melody Koenig MD [address] [place] [address] PCP - General Family Medicine 10/30/22 11/29/22 documented as of this encounter
--- OUTSIDE RECORDS SUMMARY | 2024-08-08 12:01 | XMS_ITS | Encounter Summary ---
Author Organization [facility] Address [facility] Masood [facility] [address] Care Team Providers Care Telephoner Name Role Phone Analisa Martinez Primary Care Provider [phone] Reason for Visit * Reason Comments Routine Visit Encounter Details Date Type Department Care Team (Late st Contact Info) Description 01/21/2023 1:00 PM EDT Routine Obstetrics [place] [address] Nitza Murguia MD [facility] DR OBSTETRICS [place] [address] GA: 24w5d Social History Tobacco Use Types [...] (if applicable) along with the Guide to [place] was given to the patient. The materials [...] 140 Will do GCT and hemogram at [facility] CS scheduled 36 6/7 Will need steroids ERB documented in this encounter Plan of Treatment Not on file documented as of this encounter Visit Diagnoses Diagnosis , unspecified gestational age Dehiscence of old uterine scar with extension before onset of labor, delivered documented in this encounter Care Teams Telephoner Relationship Specialty Start Date End Date Analisa [place] [address] PCP - General 11/30/22 documented as of this encounter
--- OUTSIDE RECORDS SUMMARY | 2024-08-08 12:01 | XMS_ITS | Referral Summary ---
Author Organization [facility] Address [address] [place] [address] Care Team Providers Care Grinder Mill Operator Name Role Phone Joanna Alcaraz NP Primary Care Provider [phone] Social History Tobacco Use Types Packs/Day Years [...] C Antibody Negative Negative 10/30/2022 10:33 EST [facility] Blood VENOUS BLOOD / Unknown 10/29/2022 10:23 EST 10/29/2022 17:12 EST us Provider Outr Resulting Lab CHEMISTRY & BLOOD GA S ORDERABLES Final Result [facility] [address] [place] [address] from Last 3 Months or Most Recently Relevant to Health Maintenance Care Teams Grinder Mill Operator Relationship Specialty Start Date End Date Joanna Alcaraz NP [address] [place] [phone] (work) PCP - General 08/23/19
--- OUTSIDE RECORDS SUMMARY | 2024-08-08 12:01 | XMS_ITS | Encounter Summary ---
Author Organization [facility] Address [address] [place] [address] Care Team Providers Care Customer Relations Advisor Name Role Phone Noris Tran Duncan WILKERSON Primary Care Provider Encounter Details Date Type Department Care Team (Late st Contact Info) Description 02/01/2017 Results Only Imaging [facility] Family Medicine - [address] [address] Analisa Elkins CNM [address] [place] [address] Social History Tobacco Use Types Packs/Day Years [...] Procedure Name Priority Date/Time Associated Diagnosis Comments LONGTERM DETAILED 02/01/2017 15:41 EDT documented in this encounter Results * LONGTERM DETAILED (02/01/2017 15:41 EDT) Anatomical Region Laterality [...] ?2,127 g 17% Lazcano Calculated by: Hadlock ([id number]) EFW (lb) ?? 4 lb EFW (oz) ?? 11 oz Cephalic index 0.79 ?34% Nicolaides HC / AC ?1.04 FL / BPD ?? 0.82 FL / AC ?0.24 MVP ?5.3 cm AMILCAR ?14.9 cm FHR ?148 bpm Head / Face / Neck Television Script Writer 3.9 mm Extremities / Bony Struc Radius [...] normal IVC: ?? normal 3-vessel view: normal 7-fozeaj-fjrbjuf view: normal Rt lung: ?? normal Lt [...] habitus and by advanced gestational age. Impression [address] Obstetrical ultrasound with and maternal evaluation, including [...] There is trunk and extremity movement noted. [address] Umbilical artery Doppler study Doppler waveforms of [...] 2,127 g 17% Lazcano Calculated by: Hadlock (OGJ-NC-SI-FL) EFW (lb) 4 lb EFW (oz) 11 oz Cephalic index 0.79 34% Nicolaides HC / AC 1.04 FL / BPD 0.82 FL / AC 0.24 MVP 5.3 cm AMILCAR 14.9 cm FHR 148 bpm Head / Face / Neck Television Script Writer 3.9 mm Extremities / Bony Struc Radius [...] SVC: normal IVC: normal 3-vessel view: normal 9-niwkmv-fcwacmp view: normal Rt lung: normal Lt lung: [...] habitus and by advanced gestational age. Impression [address]11 Obstetrical ultrasound with and maternal evaluation, including [...] There is trunk and extremity movement noted. 11473 Umbilical artery Doppler study Doppler waveforms of the umbilical artery are normal. Given the EFW appears > 10%, the biometry is symmetric, the fluid and Dopplers are normal, there is no evidence of poor growth or placental insufficiency at this time. Follow-up Follow-up as clinically indicated. Analisa [facility] ORDERABLES Final Resu lt documented in this encounter Visit Diagnoses Not on filedocumented in this encounter Care Teams Customer Relations Advisor Relationship Specialty Start Date End Date Noris Tran RPA-C [address] [place] [address] PCP - General 03/06/13 08/22/19 documented as of this encounter
--- OUTSIDE RECORDS SUMMARY | 2024-08-08 12:01 | XMS_ITS | Encounter Summary ---
[place] [address] Care Team Providers Care Expediter Service Order Name Role Phone Analisa Martinez Primary Care Provider [phone] Encounter Details Date Type Department Care Team (Latest Contact Info) Description 02/19/2023 7:15 AM EDT Laboratory Appointment Lab [address] [place] [id number] Elevated glucose tolerance test Social History Tobacco [...] 3 Hour 95 65 - 139 mg/dL [facility] Blood 02/19/2023 10:2 9 AM EDT 02/19/2023 10:32 AM EDT Narrative Resulting Agency Comment Spec In Lab Nitza Murguia MD CHEMISTRY ORDERABLES Performing Organization Address City/[facility]/ZIP Co de Phone Number [facility] [place] [address] * Glucose 2 Hr Gestational (02/19/2023 9:35 AM EDT) Glucose Tolerance Gestational, 2 Hour 115 65 - 154 mg/dL [facility] Blood 02/19/2023 9:35 AM EDT 02/19/2023 9:40 AM EDT Narrative Resulting Agency Comment Spec In Lab Nitza Murguia MD CHEMISTRY ORDERABLES Performing Organization Address City/[facility]/ZIP Co de Phone Number [facility] [place] [address] * Glucose 1 Hr Gestational (02/19/2023 8:33 AM EDT) Gluc 1 Hr Gestational 160 65 - 179 mg/dL [facility] Blood 02/19/2023 8:33 AM EDT 02/19/2023 8:37 AM EDT Narrative Resulting Agency Comment Spec In Lab Nitza Murguia MD CHEMISTRY ORDERABLES Performing Organization Address City/[facility]/ZIP Co de Phone Number [facility] [place] [address] * Oral Glucose Dose Gestational (02/19/2023 7:30 AM EDT) Oral Glucose Dose 100 gm [facility] Blood 02/19/2023 7:30 AM EDT 02/19/2023 7:41 AM EDT Nitza Murguia MD CHEMISTRY ORDERABLES Performing Organization Address City/[facility] Co de Phone Number [facility] [place] [address] * Glucose Fasting Gestational (02/19/2023 7:30 AM EDT) Glucose Tolerance Gestational, Fasting 83 65 - 94 mg/dL [facility] Comment: Diagnosis of gestational diabetes mellitus requires that two or more glucose thresholds are exceeded in a single oral glucose tolerance test. Citation:, Gestational diabetes mellitus. Practice Bulletin No. 180. ACOG. Obstet Gynecol 2017;130:e17-31 Blood 02/19/2023 7:30 AM EDT 02/19/2023 7:41 AM EDT Narrative Resulting Agency Comment Spec In Lab Nitza Murguia MD CHEMISTRY ORDERABLES Performing Organization Address [facility] Co de Phone Number [facility] [place] [address] documented in this encounter Visit Diagnoses Diagnosis Elevated glucose tolerance test Impaired glucose tolerance test documented in this encounter Care Teams Expediter Service Order Relationship Specialty Start Date End Date Analisa Martinez PA [address] [place] [address] PCP - General 11/30/22 documented as of this encounter
--- OUTSIDE RECORDS SUMMARY | 2024-08-08 12:01 | XMS_ITS | Encounter Summary ---
Author Organization [facility] [place] [address] Care Team Providers Care Network And Threat Support Specialist Name Role Phone Melody Koenig MD Primary Care Provider Reason for Visit * Reason Comments Follow-up Encounter Details Date Type Department Care Team (Late st Contact Info) Description 11/20/2022 10:30 AM EST Office Visit Obst[place]s [place] [address] Casey Armendariz MD [facility] [address] [place] [address] , unspecified gestational age; Arthralgia, unspecified joint; [...] seen 3 days ago in ED of [facility] for pelvic joint pain and low abdominal/suprapubic [...] minutes was spent performing this follow up [facility] visit. Addendum: ELHAM and Rheumatoid Factor [...] , unspecified gestational age TYPE AND SCREEN ([facility]CGP/[place]) Routine 11/20/2022 12:30 PM EST , unspecified gestational age HC RHEUMATOID FACTOR Routine 11/20/2022 12:30 PM EST Arthralgia, unspecified joint HC DNA AB DS ([facility]) Routine 11/20/2022 12:30 PM EST Arthralgia, unspecified joint COMPREHENSIVE METABOLIC PANEL Routine 11/20/2022 12:30 PM EST Arthralgia, unspecified joint documented in this encounter Results * Type and Screen Validity (11/20/2022 12:30 PM EST) T&S only valid at [facility] LABORATORY Comment:This Type and Screen result is only valid at the [facility] Blood 11/20/2022 12:3 0 PM EST 11/20/2022 12:40 PM EST Narrative Resulting Agency Comment Spec In Lab Casey Armendariz MD BLOOD BANK LAB ORDER SHABNAM Performing Organization Address City/[facility]/ZIP Co de Phone Number [facility] [place] [address] * ABORH Recheck Status (11/20/2022 12:30 PM EST) ABORH Recheck Order Order Placed [facility] ABORH Type Recheck Not Performed [facility] Blood 11/20/2022 12:3 0 PM EST 11/20/2022 12:40 PM EST Narrative Resulting Agency Comment Spec In Lab Casey Armendariz MD BLOOD BANK LAB ORDER SHABNAM [facility] [place] [address] * Antibody screen (11/20/2022 12:30 PM EST) Pathologist [facility] Ab Screen Interp Negative [facility] Expires at [id number] on: 11/23/2022 [facility] Blood 11/20/2022 12:3 0 PM EST 11/20/2022 12:40 PM EST Narrative Resulting Agency Comment Spec In Lab Casey Armendariz MD BLOOD BANK LAB ORDER SHABNAM [facility] [place] [address] * ABO/Rh Typing (11/20/2022 12:30 PM EST) Pathologist [facility] ABORH Type A Pos [facility] Blood 11/20/2022 12:3 0 PM EST 11/20/2022 12:40 PM EST Narrative Resulting Agency Comment Spec In Lab Casey Armendariz MD BLOOD BANK LAB ORDER SHABNAM Performing Organization Address City/[facility]/ZIP Co de Phone Number [facility] [place] [address] * (ABNORMAL) Hemogram (11/20/2022 12:30 PM EST) Pathologist [facility] White Blood Cell 9.7(H) 4.0 - 9.5 x10(3)/mc L [facility] Red Blood Cell 4.37 4.00 - 5.21 x10(6)/mc L [facility] Hemoglobin 13.2 11.7 - 15.5 g/dL [facility] Hematocrit 38.6 35.7 - 45.8 % [facility] Mean Cell Volume 88.3 82.6 - 94.4 fL [facility] Mean Cell Hemoglobin 30.2 27.1 - 32.0 pg [facility] Mean Cell Hemoglobin Concentration 34.2 31.7 - 35.0 g/dL [facility] Platelet 141(L) 145 - 357 x10(3)/mc L [facility] RDW Standard Deviation 43.2 37.0 - 46.[address] [facility] RDW coefficient of variation 13.2 11.5 - 14.1 % [facility] Mean Platelet Volume 12.3 7.6 - 12.[address] [facility] NRBC% auto 0.0 % [facility] NRBC Absolute 0.000 0.000 - 0.000 x10(3)/mc L [facility] Blood 11/20/2022 12:3 0 PM EST 11/20/2022 12:37 PM EST Narrative Resulting Agency Comment Spec In Lab Casey Armendariz MD HEMATOLOGY ORDERABLE S [facility] [place] [address] * (ABNORMAL) Comprehensive metabolic panel (non-fasting) (11/20/2022 12:30 PM EST) Glucose 82 65 - 199 mg/dL [facility] Comment:Diabetes: >=200 mg/d L plus symptoms Blood Urea Nitrogen 5(L) 8 - 18 mg/dL [facility] Creatinine 0.50(L) 0.70 - 1.20 mg/dL [facility] Sodium 137 135 - 145 mmol/L [facility] Potassium 4.4 3.5 - 5.0 mmol/L [facility] Comment: Please note: ??Patients with WBC >100,000 may have falsely elevated Potassium levels. ??For accurate Potassium quantification in these patients send serum separator tube (gold top) for subsequent determinations. ??Contact the Clinical Chemistry Laboratory if there are any questions. Chloride 104 98 - 107 mmol/L [facility] Carbon Dioxide 23 22 - 31 mmol/L [facility] Anion Gap 10 5 - 15 mmol/L [facility] Calcium 9.5 8.5 - 10.5 mg/dL [facility] Protein, Total 7.0 6.1 - 8.0 g/dL [facility] Albumin 4.0 3.2 - 5.2 g/dL [facility] Aspartate Aminotransferase 13 0 - 30 unit/L [facility] Alanine Aminotransferase 13 0 - 30 unit/L [facility] Alkaline Phosphatase 51 35 - 105 unit/L [facility] Bilirubin, Total <0.2(L) 0.2 - 1.3 mg/dL [facility] Est Glomerular Filtration Rate 131 >=60 mL/min/1. 73 m?? [facility] Comment: This patient's estimated GFR [...] Armendariz MD CHEMISTRY ORDERABLES Performing Organization Address [facility] Co de Phone Number [facility] [place] [address] * Rheumatoid factor, quant (11/20/2022 12:30 PM EST) Rheumatoid Factor <10 <=14 IU/mL [facility] Blood 11/20/2022 12:3 0 PM EST 11/20/2022 12:37 PM EST Narrative Resulting Agency Comment Spec In Lab Casey Armendariz MD CHEMISTRY ORDERABLES Performing Organization Address [facility] [place] [address] * [place]AM Antibody Screen (11/20/2022 12:30 PM EST) [place]AM Ab Screen Negative Negative [facility] Comment: This antinuclear antibody (ELHAM) screen is a qualitative test performed using a fluoroenzyme immunoassay on the [employer] 250 analyzer. This screen is designed to [...] performed by the Special Chemistry Laboratory at [facility]. This change in testing location is associated with a change is testing method and reference intervals. Please review the results of this test in association with the posted reference intervals. dsDNA Ab 0.6 <=15.0 IU/mL [facility] Comment: <10 negative 10-15 equivocal >15 positive This dsDNA antibody result was generated using a fluoroenzyme immunoassay on the [employer] 250 analyzer. This quantitative test is designed to detect IgG antibodies directed against double stranded DNA in human serum. The presence of antibodies that recognize dsDNA is a highly specific marker for systemic lupus erythematosus. Please note that as of 07/21/2022 that this testing is performed by the Special Chemistry Laboratory at [facility]. This change in testing location is associated with a change is testing method and reference intervals. Please review the results of this test in association with the posted reference intervals. Blood 11/20/2022 12:3 0 PM EST 11/20/2022 1:46 PM EST Narrative Resulting Agency Comment Spec In Lab Casey Armendariz MD LAB SEND OUT ORDERAB LES [facility] [place] [address] documented in this encounter Visit Diagnoses Diagnosis , unspecified gestational age Arthralgia, unspecified joint Uterine fibroid in Tumors of body of uterus, unspecified as to episode of care in documented in this encounter Care Teams Network And Threat Support Specialist Relationship Specialty Start Date End Date Melody Koenig MD [address] [place] [address] PCP - General Family Medicine 10/30/22 11/29/22 documented as of this encounter
--- OUTSIDE RECORDS SUMMARY | 2024-08-08 12:01 | XMS_ITS | Encounter Summary ---
Author Organization [facility] Address [facility] [place] [address] Care Team Providers Care Aeronautics Commission Director Name Role Phone Analisa Martinez Primary Care Provider [phone] Encounter Details Date Type Department Care Team [...] on filedocumented in this encounter Care Teams Aeronautics Commission Director Relationship Specialty Start Date End Date [place] [address] PCP - General 11/30/22 documented as of this encounter
--- OUTSIDE RECORDS SUMMARY | 2024-08-08 12:01 | XMS_ITS | Encounter Summary ---
Author Organization [facility] [place] [address] Care Team Providers Care Mechanical Engineer Name Role Phone Analisa Martinez Primary Care Provider [phone] Encounter Details Date Type Department Care Team (Late st Contact Info) Description 12/25/2022 9:00 AM EDT Office Visit Obstetrics [place] [address] Kate Lindsya MD [facility] [address] OB[place] [address] Dehiscence of old uterine scar with extension [...] contractions. Plans to get [facility] care at [facility], and to deliver here. Plan f/u visit [...] who have questions, please contact the health patient care manager that requested your imaging first. ?Fide Haas, Staff Physician Electronically Signed Final Report ?? 02/19/2023 10:22 am Narrative 02/19/2023 10:22 AM EDT OBSTETRICS REPORT ?(Signed Final 02/19/2023 10:22 am) PATIENT INFO: ID #: ? [id number] ?: ??[birth year] (27 yrs)(F) Name: ? DENISE YOUNG ? Visit Date: 02/19/2023 10:09 am PERFORMED BY: Performed By: ? Lima Cummins RDMS Attending: ?Waldo MENESES, Fide Weir Referred By: ?Kate LINDSAY Location: ? [place] SERVICE(S) PROVIDED: UOBFOL - Efw - Growth ??- Brown - [id number] ?[id number] UOBTVCER - Transvaginal ??2nd Trimester - ?92090 Cervical Length - [id number] INDICATIONS: 28 weeks gestation of ?Z3A.28 h/o [...] 02/19/2023 10:22 am) PATIENT INFO: ID #: [id number] : [birth year] (27 yrs)(F) Name: DENISE JULIAN Visit Date: 02/19/2023 10:09 am PERFORMED BY: Performed By: Lima Cummins RDMS Attending: Fide Haas MD Referred By: Kate LINDSAY Location: [place] SERVICE(S) PROVIDED: UOBFOL - Efw - Growth - Brown - [id number] UOBTVCER - Transvaginal 2nd Trimester - 41558 Cervical Length - [id number] INDICATIONS: 28 weeks gestation of Z3A.28 h/o [...] who have questions, please contact the health patient care manager that requested your imaging first. Fide Haas, [...] complication documented in this encounter Care Teams Mechanical Engineer Relationship Specialty Start Date End Date Analisa Martinez PA [address] [place] [address] PCP - General 11/30/22 documented as of this encounter
--- OUTSIDE RECORDS SUMMARY | 2024-08-08 12:01 | XMS_ITS | Encounter Summary ---
[place] [address] Care Team Providers Care Yacht Master Name Role Phone Melody Koenig MD Primary Care Provider [phone] Encounter Details Date Type Department Care Team (Late st Contact Info) Description 11/26/2022 Telephone Obstetrics [place] [address] Macarena Priest RN Social History [...] 11/26/2022 1:02 PM EST Isabel Julian 15w0d [facility] pt Reason for call: pelvic pain Pt [...] to the pain. She was seen at [facility] today and she is very disappointed in their care, they basically told me to take a Tylenol and suck it up - I am furious and will not be going back there. I stated I would forward this note to Dr Haas, the preparation plant supervisor MFM. I explained that Dr Haas may [...] on filedocumented in this encounter Care Teams Yacht Master Relationship Specialty Start Date End Date Melody Koenig MD [address] [place] [address] PCP - General Family Medicine 10/30/22 11/29/22 documented as of this encounter
--- OUTSIDE RECORDS SUMMARY | 2024-08-08 12:01 | XMS_ITS | Encounter Summary ---
Author Organization [facility] [place] [address] Care Team Providers Care Superintendent Circus Name Role Phone Analisa Martinez Primary Care Provider [phone] Reason for Visit * Reason Comments Routine Visit Encounter Details Date Type Department Care Team (Late st Contact Info) Description 02/19/2023 11:00 AM EDT Routine Obstetrics [place] [address] Casey Armendariz MD [facility] [address] OBSTETRICS [place] [address] GA: [id number] Social History Tobacco Use Types [...] applicable documented in this encounter Care Teams Superintendent Circus Relationship Specialty Start Date End Date Analisa [place] [address] PCP - General 11/30/22 documented as of this encounter
--- OUTSIDE RECORDS SUMMARY | 2024-08-08 12:01 | XMS_ITS | Encounter Summary ---
Author Organization [facility] Address [address] [place] [address] Care Team Providers Care Remote Sensing Advisor Name Role Phone Nolberto Tranmeng Song RPA-C Primary Care Provider [phone] Encounter Details Date Type Department Care Team (Late st Contact Info) Description 05/15/2014 Results Only [facility] - [facility] ([facility]) [address] [place], [place] [address] Deb Pan MD [address] [place] [address] Social History Tobacco Use Types Packs/Day Years [...] 05/14/2014 12:1 0 EDT 05/15/2014 13:39 EDT us Deb Pan MD CHEMISTRY & BLOOD GAS ORDER SHABNAM Final Result Performing Organization Address [facility] Co de Phone Number [facility] [address] [place] [address] * QUAD MARKERS (05/14/2014 12:10 EDT) AFP/QUAD Sample Sample received in the lab. [facility] 05/14/2014 12:1 0 EDT 05/15/2014 13:39 EDT us Deb Pan MD CHEMISTRY & BLOOD GAS ORDER SHABNAM Final Result Performing Organization Address [facility] de Phone Number [facility] [address] [place] [address] documented in this encounter Visit Diagnoses Not on filedocumented in this encounter Care Teams Remote Sensing Advisor Relationship Specialty Start Date End Date Noris Tran RPA-C [address] [place] [address] PCP - General 03/06/13 08/22/19 documented as of this encounter
--- OUTSIDE RECORDS SUMMARY | 2024-08-08 12:01 | XMS_ITS | Encounter Summary ---
Author Organization [facility] Address [address] [place] [address] Care Team Providers Care Senior Game Advisor Name Role Phone Joanna Alcaraz NP Primary Care Provider [phone] Encounter Details Date Type Department Care Team (Late st Contact Info) Description 06/29/2022 Lab [facility] Pathology & Laboratory Medicine - [facility] [address] [place] [address] Outr Resulting Lab, Provider Social History Tobacco [...] 06/28/2022 21:1 6 EDT 06/29/2022 17:35 EDT us Provider Outr Resulting Lab MICROBIOLOGY - GENER AL ORDERABLES Final Result [facility] [address] [place] [address] * COVID-19 TESTING (06/28/2022 21:16 EDT) COVID-19 rt-PCR Result Negative Negative 06/30/2022 13:47 EDT [facility] Comment: This [...] performed using the thelma SARS-CoV-2 assay ([employer] on the Thelma 6800 System Performing Lab Thelma [address] [facility] Lab 06/30/2022 13:47 EDT [facility] Swab 06/28/2022 21:1 6 EDT 06/29/2022 17:35 EDT us Provider Outr Resulting Lab MICROBIOLOGY - GENER AL ORDERABLES Final Result [facility] [address] [place] [address] documented in this encounter Visit Diagnoses Not on filedocumented in this encounter Care Teams Senior Game Advisor Relationship Specialty Start Date End Date Joanna Alcaraz NP [address] [place] [phone] PCP - General 08/23/19 documented as of this encounter
--- OUTSIDE RECORDS SUMMARY | 2024-08-08 12:01 | XMS_ITS | Encounter Summary ---
Author Organization [facility] Address [facility] [place] [address] Care Team Providers Care Hvac Refrigeration Technician Name Role Phone Analisa Martinez Primary Care Provider [phone] Encounter Details Date Type Department Care Team [...] on filedocumented in this encounter Care Teams Hvac Refrigeration Technician Relationship Specialty Start Date End Date Analisa [place] [address] PCP - General 11/30/22 documented as of this encounter
--- OUTSIDE RECORDS SUMMARY | 2024-08-08 12:01 | XMS_ITS | Encounter Summary ---
Author Organization [facility] Address [facility] [place] [address] Care Team Providers Care Labeling Strategist Name Role Phone Analisa Martinez Primary Care Provider [phone] Encounter Details Date Type Department Care Team [...] on filedocumented in this encounter Care Teams Labeling Strategist Relationship Specialty Start Date End Date Analisa [place] [address] PCP - General 11/30/22 documented as of this encounter
--- OUTSIDE RECORDS SUMMARY | 2024-08-08 12:01 | XMS_ITS | Encounter Summary ---
Author Organization [facility] Address [facility] [place] [address] Care Team Providers Care Instructor Tap Dancing Name Role Phone Analisa Martinez Primary Care Provider [phone] Encounter Details Date Type Department Care Team (Latest Contact Info) Description 12/25/2022 7:58 AM EDT - 12/25/2022 11:59 PM EDT Hospital [place] [address] Tan Sanches MD [facility] [place] [address] Previous delivery affecting , antepartum; Dehiscence of [...] by mouth daily. 05/24/2023 vitamin 27 & [id number] 60 mg iron-1 mg Tablet Take 1 [...] have questions, please contact the health career transition specialist that requested your imaging first. ? Monika Lindsay, Staff Physician Electronically Signed Final Report ?? 12/25/2022 11:23 am Narrative 12/25/2022 11:24 AM EDT OBSTETRICS REPORT ?(Signed Final 12/25/2022 11:23 am) PATIENT INFO: ID #: ? [id number] ?: ??[birth year] (27 yrs)(F) Name: ? DENISE JULIAN ? Visit Date: 12/25/2022 08:38 am PERFORMED BY: Performed By: ? Marcela Edward RDMS Attending: ?Monika Lindsay MD Referred By: ?TAN SANCHES Location: ? [place] SERVICE(S) PROVIDED: [facility] - Detailed Morphology - [id number] ? [id number] UOBTVCER - Transvaginal ??2nd Trimester - ?53581 Cervical Length - [id number] INDICATIONS: 20 weeks gestation of ?Z3A.20 History [...] Arch: ? Visualized SVC: ? Visualized Cardiac [place]: ?Visualized Diaphragm: ? Visualized 3 Vessel View: [...] 12/25/2022 11:23 am) PATIENT INFO: ID #: [id number] : [birth year] (27 yrs)(F) Name: DENISE JULIAN Visit Date: 12/25/2022 08:38 am PERFORMED BY: Performed By: Marcela Edward RDMS Attending: Monika Lindsay MD Referred By: TAN SANCHES Location: [place] SERVICE(S) PROVIDED: [facility] - Detailed Morphology - [id number] UOBTVCER - Transvaginal 2nd Trimester - 19794 Cervical Length - [id number] INDICATIONS: 20 weeks gestation of Z3A.20 History [...] Visualized Ductal Arch: Visualized SVC: Visualized Cardiac [place]: Visualized Diaphragm: Visualized 3 Vessel View: Visualized [...] have questions, please contact the health career transition specialist that requested your imaging first. Monika Lindsay, Staff Physician Electronically Signed Final Report 12/25/2022 11:23 am Tan Sanches MD IMG US OB ORDERABLES documented in this encounter Visit Diagnoses Diagnosis Previous delivery affecting , antepartum Previous delivery, antepartum condition or complication Dehiscence of old uterine scar with extension before onset of labor, delivered documented in this encounter Care Teams Instructor Tap Dancing Relationship Specialty Start Date End Date Analisa Martinez PA [address] [place] [address] PCP - General 11/30/22 documented as of this encounter
--- OUTSIDE RECORDS SUMMARY | 2024-08-08 12:01 | XMS_ITS | Encounter Summary ---
Author Organization [facility] Address [address] [place] [address] Care Team Providers Care Director Dietetics Department Name Role Phone Joanna Alcaraz NP Primary Care Provider + [phone] Encounter Details Date Type Department Care Team (Late st Contact Info) Description 10/29/2022 Lab Requisition [facility] Pathology & Laboratory Medicine - Main [address] [address] Outr Resulting Lab, Provider Social History Tobacco [...] gonorrhoeae Result Negative Negative 10/30/2022 13:39 EST [facility] Chlamydia trachomatis Result Negative Negative 10/30/2022 13:39 EST [facility] Swab ENTIRE VAGINA / Unknown 10/29/2022 9:00 EST 10/29/2022 21:54 EST us Provider Outr Resulting Lab MICROBIOLOGY - GENER AL ORDERABLES Final Result [facility] [address] [place] [address] documented in this encounter Visit Diagnoses Not on filedocumented in this encounter Care Teams Director Dietetics Department Relationship Specialty Start Date End Date Joanna Alcaraz NP [address] [place] [phone] PCP - General 08/23/19 documented as of this encounter
--- OUTSIDE RECORDS SUMMARY | 2024-08-08 12:01 | XMS_ITS | Encounter Summary ---
[place] [address] Care Team Providers Care Slab Depiler Operator Name Role Phone Analisa Martinez Primary Care Provider [phone] Encounter Details Date Type Department Care Team (Late st Contact Info) Description 02/16/2023 External Results Obstetrics [place] [id number] Macarena Priest, RN Social History Tobacco Use [...] on filedocumented in this encounter Care Teams Slab Depiler Operator Relationship Specialty Start Date End Date Analisa Martinez PA [address] [place] [address] PCP - General 11/30/22 documented as of this encounter
--- OUTSIDE RECORDS SUMMARY | 2024-08-08 12:01 | XMS_ITS | Encounter Summary ---
Author Organization [facility] Address [facility] [place] [address] Care Team Providers Care Mail Caller Name Role Phone Analisa Martinez Primary Care Provider [phone] Encounter Details Date Type Department Care Team (Latest Contact Info) Description 11/30/2022 3:00 PM EST - 11/30/2022 11:59 PM [facility] Hospital [place] [address] Rosa Santiago MD [facility] OBSTETRICS [place] [address] Back pain affecting in second trimester Discharge [...] by mouth daily. 05/24/2023 vitamin 27 & efczsax-bwhy-KL 60 mg iron-1 mg Tablet Take 1 [...] who have questions, please contact the health lawn care worker that requested your imaging first. ? Nitza Murguia, Ribbon Hanking Machine Operator Electronically Signed Corrected Final Report ??11/30/2022 05:04 pm Narrative 11/30/2022 3:52 PM EST OBSTETRICS REPORT ? (Corrected Final 11/30/2022 05:04 pm) PATIENT INFO: ID #: ? [id number] ?: ??[birth year] (27 yrs)(F) Name: ? DENISE YOUNG ? Visit Date: 11/30/2022 03:34 pm PERFORMED BY: Performed By: ? Lima Cummins RDMS Attending: ?Shantal MENESES, Nitza Whittington Referred By: ?ROSA SANTIAGO Location: ? [place] SERVICE(S) PROVIDED: UOBLIM - Transabdominal - Maria - [id number] INDICATIONS: 17 weeks gestation of ?Z3A.17 15 [...] 11/30/2022 05:04 pm) PATIENT INFO: ID #: [id number] : [id number] (27 yrs)(F) Name: DENISE JULIAN Visit Date: 11/30/2022 03:34 pm PERFORMED BY: Performed By: Lima Cummins RDMS Attending: Nitza Murguia MD Referred By: ROSA SANTIAGO Location: [place] SERVICE(S) PROVIDED: UOBLIM - Transabdominal - Maria - [id number] INDICATIONS: 17 weeks gestation of Z3A.17 15 [...] who have questions, please contact the health lawn care worker that requested your imaging first. Nitza Murguia, Ribbon Hanking Machine Operator Electronically Signed Corrected Final Report 11/30/2022 05:04 pm Rosa Santiago MD IMG US OB ORDERABL ES documented in this encounter Visit Diagnoses Diagnosis Back pain affecting in second trimester documented in this encounter Care Teams Mail Caller Relationship Specialty Start Date End Date Analisa Martinez PA [address] [place] [address] PCP - General 11/30/22 documented as of this encounter
--- OUTSIDE RECORDS SUMMARY | 2024-08-08 12:01 | XMS_ITS | Encounter Summary ---
Author Organization [facility] Address [facility] [place] [address] Care Team Providers Care Reconciling Clerk Name Role Phone Analisa Martinez Primary Care Provider [phone] Encounter Details Date Type Department Care Team (Late st Contact Info) Description 01/17/2023 Telephone Obstetrics [place] [address] Staci Jay MD [facility] [address] [place] [address] Social History Tobacco Use Types Packs/Day Years [...] on filedocumented in this encounter Care Teams Reconciling Clerk Relationship Specialty Start Date End Date Analisa Martinez PA [address] [place] [address] PCP - General 11/30/22 documented as of this encounter
--- OUTSIDE RECORDS SUMMARY | 2024-08-08 12:01 | XMS_ITS | Clinical Summary ---
Author Organization [facility] Address [address] [place] [address] Care Team Providers Care Plant Hr Manager Name Role Phone Joanna Alcaraz NP Primary Care Provider [phone] Social History Tobacco Use Types Packs/Day Years [...] C Antibody Negative Negative 10/30/2022 10:33 EST [facility] Blood VENOUS BLOOD / Unknown 10/29/2022 10:23 EST 10/29/2022 17:12 EST us Provider Outr Resulting Lab CHEMISTRY & BLOOD GA S ORDERABLES Final Result [facility] [address] [place] [address] from Last 3 Months or Most Recently Relevant to Health Maintenance Care Teams Plant Hr Manager Relationship Specialty Start Date End Date Joanna Alcaraz NP [address] [place] [phone] PCP - General 08/23/19
--- OUTSIDE RECORDS SUMMARY | 2024-08-08 12:01 | XMS_ITS | Encounter Summary ---
[facility] [place] [address] Care Team Providers Care Instructional Design Technologist Name Role Phone Melody Koenig MD Primary Care Provider [phone] Encounter Details Date Type Department Care Team [...] filedocumented in this encounter Care Teams Instructional Design Technologist Relationship Specialty Start Date End Date Melody Koenig MD [address] [place] [address] PCP - General Family Medicine 10/30/22 11/29/22 documented as of this encounter
[2024-08-08] MEDS: predniSONE 20 MG TAB 40 MG PO (12:45)
[2024-08-08] MEDS: Famotidine 20 MG TAB PO (12:45)
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
== END 2024-08-08 13:17 | disposition home or self-care (01) ==
PROVIDERS: Emergency Provider Physician Assistant; PCP Family Medicine
DX: T78.1XXA Other adverse food reactions, not elsewhere classified, initial encounter (principal); R19.7 Diarrhea, unspecified; R11.0 Nausea; R10.9 Unspecified abdominal pain; X58.XXXA Exposure to other specified factors, initial encounter
CPT/HCPCS: 99283; J7512

== ENCOUNTER 2024-08-14 11:54 | Emergency (ER) | payer MEDICAID, SELFPAY ==
[2024-08-14 11:55] VITALS: BP 117/82; PULSE 112; RESP 14; TEMP 36.3; O2SAT 96
[2024-08-14 12:10] VITALS: RESP 18
--- OUTSIDE RECORDS SUMMARY | 2024-08-14 12:10 | XMS_ITS | Clinical Summary ---
Author Organization [facility] Address [facility] [place] [address] Care Team Providers Care Visual Merchandising Assistant Name Role Phone Analisa Martinez Primary Care Provider [phone] Allergies Active Allergy Reactions Criticality Noted Date Comments Latex, Natural Rubber Rash 11/06/2022 Penicillins 11/06/2022 Varicella Vaccines Hives 11/26/2022 Medications Medication Sig Dispensed Refills Start Date End Date Status miconazole (Micotin) 2 % CreamIndications:Cand junie infection Apply topically 2 times daily. 14 g 05/24/2023 Active Active Problems Problem Noted Date Diagnosed Date Pulmonary embolus 05/31/2023 Overview (05/31/2023): Please see 05/31/2023 Wool [place] Telephone Note: Pt states she was told by [facility] to call and notify [facility] that she had some back pain and that she went to [facility] and is now being treated for a PE following CT. Said she was told she has clots in the bottom of her left lung. She is on Lovenox 130 mg daily x 3 mo. She weights 190lbs. She has a PCP and Yard Jockey whom she will see tomorrow. Resolved Problems [...] place to sleep or slept in a fpc (including now)? No 05/21/2023 DH IPV Inpatient [...] Status decision made by: Patient Care Teams Visual Merchandising Assistant Relationship Specialty Start Date End Date Analisa Martinez PA [address] [place] [address] PCP - General 11/30/22
--- OUTSIDE RECORDS SUMMARY | 2024-08-14 12:11 | XMS_ITS | Encounter Summary ---
Author Organization [facility] Address [facility]ood [facility] [place] [address] Care Team Providers Care Corrective Therapy Aide Teacher Name Role Phone Analisa Martinez Primary Care Provider [phone] Encounter Details Date Type Department Care Team (Late st Contact Info) Description 04/05/2023 Telephone Obstetrics [place] [phone] Ewa Kwon MD [facility] DR OBSTETRICS & [place] [address] Social History Tobacco Use Types Packs/Day Years [...] on filedocumented in this encounter Care Teams Corrective Therapy Aide Teacher Relationship Specialty Start Date End Date Analisa Martinez PA [address] [place] [address] PCP - General 11/30/22 documented as of this encounter
--- OUTSIDE RECORDS SUMMARY | 2024-08-14 12:11 | XMS_ITS | Encounter Summary ---
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 I reviewed resources available here at [facility] if she is ever feeling like she cannot manage things, pt verbalizedunderstanding. No questions at this time. documented in this encounter Plan of Treatment Not on file documented as of this encounter Visit Diagnoses Not on filedocumented in this encounter Care Teams Packing Machine Feeder Relationship Specialty Start Date End Date Analisa Martinez PA [address] [place] [address] PCP - General 11/30/22 documented as of this encounter
--- OUTSIDE RECORDS SUMMARY | 2024-08-14 12:11 | XMS_ITS | Encounter Summary ---
Author Organization [facility] Address [facility] [place] [address] Care Team Providers Care Laundry Housekeeping Aide Name Role Phone Analisa Martinez Primary Care Provider [phone] Reason for Visit * Reason Comments Follow-up incision c heck, s/p 04/12/23 with tubal Encounter Details Date Type Department Care Team (Late st Contact Info) Description 04/28/2023 2:00 PM EDT Office Visit Obstetrics [place] [address] Sophie Scanlon MD [facility] [address] OBSTETRICS [place] [address] Separation of wound with drainage, (Primary Dx); Surgical wound infection; H/O section Social History Tobacco Use Types Packs/Day Years Used Date Smoking Tobacco: Every Day Cigarettes Smokeless Tobacco: Never Comments:Cut back from 2 pac ks Alcohol Use Standard Drinks/Week Comments Not Currently 0 (1 standard drink = 0.6 oz pur e alcohol) [facility] Inpatient Questions Answer Date Recorded [...] seen four days ago on the birthing [facility] after noting draining from her [...] performed by Mary Headley MD at [facility] PRO LIGATE FALLOPIAN TUBE, N/A 04/12/2023 @FALLOPIAN TUBE(S), TRANSECTION OR LIGATION, ABD APPROACH, POST- (WRVU 5.28) performed by Mary Headley [facility] Family History Problem Relation Age [...] mg by mouth daily. vitamin 27 & lndanpe-[id number]-NL 60 mg iron-1 mg Tablet Take 1 [...] status documented in this encounter Care Teams Laundry Housekeeping Aide Relationship Specialty Start Date End Date Analisa Martinez PA [address] [place] [address] PCP - General 11/30/22 documented as of this encounter
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
--- OUTSIDE RECORDS SUMMARY | 2024-08-14 12:11 | XMS_ITS | Encounter Summary ---
[place] [address] Care Team Providers Care Foreign Language Teacher Name Role Phone Analisa Martinez Primary Care Provider [phone] Reason for Visit * Auth/Cert (Routine) Specialty Diagnoses / Procedures Referred By Contac t Referred To Contact Diagnoses prrior with window Procedures PRO DELIVERY ONLY ER OBSVO Sujata Prater MD [facility] [address] [place] [address] [facility] Referral ID Status Reason Start Date Expiration Date Visits Re quested Visits Authorized [id number] 1 1 Encounter Details Date Type Department Care Team (Late st Contact Info) Description 04/12/2023 1:00 PM EDT - 04/12/2023 3:22 PM [place]T [place] [id number] Mary Headley MD @ DELIVERY (WRVU 16.13) [...] Denise Julian Patient Age: 27 y.o. Language: Cameroonian Race: White Ethnicity: Not nor Admit date: 04/12/2023 Discharge date and time: 04/15/2023 Attending Physician: Mary Headley MD Discharge Physician: Dr. Fide Haas Care Provider: [facility] Referring Hospital: N/A Follow-up Recommendations for Providers: - 2 week mood check - 6 week visit Inpatient Provider Contact Information: [facility] PREVOCATIONAL/REHABILITATION COUNSELOR Department, Discharge Diagnoses (Hospital Problems) and Secondary [...] for the patient's : Eliel Baby Girl [[id number]] INFORMATION Baby Jese Julian 04/12/2023 4:21 PM by Lower Segment Transverse Sex: female Gestational Age: 36w2d Naper Measurements: Weight: 6 lb 5.9 oz (2890 [...] as: Protonix Refills: 0 vitamin 27 & zmnpkom-lure-LH 60 mg iron-1 mg Tablet Take 1 [...] Instructions: Scheduling Instructions: Comments: Denise Julian [address] [place] [address] [facility] [phone] Infant's : 04/12/23 Insurance: [place] Pay[place] Plan Address Payor Plan Phone Number Payor Plan Fax Number Effective Dates [address] 01/25/2023 - None Entered [facility] [id number] Subscriber Name Subscriber Date Member ID DENISE JULIAN 1995 [id number] [employer] # [phone] Symphony breast pump [id number] Length of need: [...] not provide sufficient milk for this baby. [facility] NPI #: [id number] DE[facility]MENT [facility] [facility] [place]ESS [place] MEDICAL NECESSITY FORM (MNF) ORTHOTICS, PROSTHETICS, MEDICAL SUPPLIES & EQUIPMENT All claims for supplies and equipment require a written order. Orders must be signed by a physician, physician grants assistant, or nurse practitioner. All home health [...] or on other documentation submitted to the [facility] and DXC. The codes submitted to [facility] and DXC must matchthe description documented by the ordering provider. All orders must adhere to state and federal rules and regulations. [place] Medicaid Rules can be found online at [email or web address]. Section A: (must be completed or reviewed and signed by ordering provider) Beneficiary's name: Denise Julian Medicaid ID#: [place] Payor Plan Address Payor Plan Phone Number Payor Plan Fax Number Effective Dates [facility] 888 01/25/2023 - None Entered [facility] [id number] Subscriber Name Subscriber Date Member ID DENISE JULIAN 1995 [id number] Diagnoses: Infant born at 36 weeks 2 days gestation. Infant admitted to the ICN for respiratory distress Purpose of Appliance: To Initiate and Maintain Medical Necessity: /Lactating Mother- Z39.1 Breast Engorgement relative to infant born at 36 weeks gestation Feeding problem of , unspecified P92.9 Premature Infant in ICN from mother P07.[address] of [address]: Is the beneficiary living in a snf facility? Yes [ ] No[x] Is the [...] address: Please see ordering physician signature below. [facility], [address] [place] [address] 6. Ordering provider's signature: Please see order [...] identified in the Provider Manual, available at: [email or web address]. For exceptions, an MNF must be kept on file by the DME supplier. Prior Authorization: The DME supplier must include a copy of an MNF with every Prior Authorization request. Fax the MNF and any other supporting documents to the [facility] at . Use of this [facility] Medical Necessity Form is recommended for all prior authorization requests to ensure timely processing. Medicaid may request a copy of the medical record upon audit. *INSTRUCTIONS FOR SECTIONS A & B* Section A must be completed or reviewed, signed, and dated by the ordering physician/physician grants assistant/nurse practitioner. Section B must be completed [...] must appear on other documentation submitted to [facility] for PA and to [facility] for billing), medical necessity rationale, expected length of need (will be interpreted as months unless stated otherwise), and the number ofitems needed (for example: 2 bottles of sterile saline per month). NOTE: If the quantity ordered ismore than the number allowed (based on customary usage and as listed in the [facility] DME Restriction list, available at: [email or web address]), an explanation from the physician is required. [...] Hospital grade rental pump Size requested: Follow-up [ZSK540 Custom] As directed Process Instructions: Scheduling Instructions: Comments: - gestational diabetic counseling with chemical educator at the time of the visit [...] aware, opioid use is a concern in [place] and [place]. We recommend that families with [...] overwhelmed. Emergency Resources National Suicide Hotlines: or [place]: Call/Text [facility] Mental Health Crisis Hotline: Call/Text [address] [facility] Mental Health Hotline: Call/Text Call your doctor or hand painter for: Seizure (call 911) Headache which isn't [...] prior to you follow up appointment. Your [facility] Provider can be reached during office hours at [facility] AFTER OFFICE HOURS for the route delivery service driver or hand painter art objects salesperson Post- Warning Signs Most women who give [...] by mouth daily. 05/24/2023 vitamin 27 & ufiitsa-trvh-HN 60 mg iron-1 mg Tablet Take 1 [...] for the patient's : Eliel, Baby Girl [[id number]] Delivery Date and Time:04/12/2023 4:21 PM Delivery [...] 04/14/2023 3:36 PM EDT [facility] Social Work Note Patient: DENISE ELIEL Relevant [...] needed/desired by patient. TITO Melo Pronouns: She/Her Transportation Maintenance Supervisor [email or web address] Pager: [phone] [email or web address] [facility] * Trina Bravo MD - 04/14/2023 [...] mg by mouth daily. vitamin 27 & bkqzyff-jyar-HW 60 mg iron-1 mg Tablet Take 1 [...] 135, Variability: moderate, Accels: yes, Decels: none, [place]: none Lab Results Component Value Date ABORH [...] seen and discussed with Dr. Headley, Attending PREVOCATIONAL/REHABILITATION COUNSELOR. Vicente Zhang MD, PGY3 Obstetrics and Gynecology [...] was weaned slightly. Analisa Shepard RN, IBCLC [facility] Services * Plan of Care - Cathy [...] weight loss: -4% MATERNAL INFO: Denise Julian [id number] 1995 G 4 P 3 Significant History: [...] ice packs after pumping X 48 hours [place] oil to nipples prior to pumping Frequent [...] education and recommendations. Analisa Shepard RN, IBCLC [facility] Services * Note - Jannette Lorenz RN [...] pump. She has rented one via the [employer]???s opendorse. She is sized to a 24 mm flange. We discussed pumping techniques. RECOMMENDATIONS: Breast massage and hand expression before and during pumping [place] oil to nipples prior to pumping Pump [...] Betzy / Jennifer Ramírez Initial Assessment This tag writer introduced self and reviewed role; services were accepted. Patient Name: Denise Julian Child's Legal Name (if applicable): Annia Prakash Source of Information: Chart Review and patient interview Initial Assessment for: Mother / Couplet Was Conifer contacted to update information? No Home Address confirmed as: [address] [address] Verified Phone Numbers confirmed as: Extended Emergency Contact Information Primary Emergency Contact: Carl Prakash Address: [address] [place] [address] [place] Relation: Clotilde Primary Care Provider listed as: BRIDGETT Turner /Child PCP, if different: Will be Dr. Lloyd Chamberlain, [facility] Reason for Hospitalization: Patient Active Problem [...] room mate, older children with grandparents in [place]. Housing for family / support system while patient admitted to [facility] Nunez: Rooming inat , Information regarding [facility] given Nutrition Food: Secure Current Nutrition of Patient: PO - regular diet Breast pump needs: Hospital grade breast pump rental provided (Given rental pump number [id number], approved by Brianna holliday [facility]) Social and Community Resources: Patient is not employed. Her partner, Carl Prakash, is employed PTas a heavy equipment sales associate for [employer]). Transportation Baseline Transportation: Personal Vehicle Transportation at Discharge: Personal Vehicle - Family / Friend to drive Current Patient / Caregiver Coping: coping okay, teary at times Child Life Consult Needed for Other Children in the Home / Family: declined PHYSICAL THERAPY ATTENDANT Consult Needed: possibly Health Coverage confirmed as: [place] Pay[place] / Plan: [place] / Product Type: *No Product type* / N/A Infant patient to be added to above insurance plan: Yes Prescription Coverage: Yes Preferred Pharmacy: [facility] - [place], [place] - [address] [place] [id number] Anticipated Barriers to Discharge / Special Considerations: no Plan: Patient to discharge to [facility] when medically stable. Follow up with OB team. Infant to discharge home with PCP and VNA follow up. warper tender / PHYSICAL THERAPY ATTENDANT remain available as needed for coordination of [...] note for further details. Dr. Headley, attending Inspector Aluminum Boat, present for entire delivery without conflicting clinical responsibilities. Maria Teresa Dhillon MD, PGY4 Obstetrics and Gynecology Information for the patient's : Eliel, Baby Girl [[id number]] DELIVERY SUMMARY FOR Baby Jese Julian (please [...] Yes Other Personnel: Provider Role Chandrika Elmore, student development advisor Nurse Mary Headley MD Roller Repairer Tami Victor, student development advisor Assist Maria Teresa Dhillon MD Resident Navya Martinez, [facility] Anesthesia Method: Combined Spinal/Epidural Cord Vessels: [...] PPV intermittently for ~30 minutes. Transferred to [facility] and placed on Bubble CPAP adjusting to CPAP of 7, 25-35% FiO2. (per respiratorynote) Maternal Naper Feeding and Skin to Skin Maternal Choice for Naper(s) Feeding on Admission: Reason skin to skin not initiated: Naper Acuity Medications Naper Medications Given: vitamin K, erythromycin Measurements Weight: [...] Operative Note Patient Name: Denise Julian : [id number] MR#: [id number] Case Date: 04/12/2023 Surgeon: Surgeon(s) and Role: [...] Dhillon MD - 04/12/2023 3:45 PM EDT [facility] Operative Note Patient Name: Denise Julian : [id number] MR#: [id number] Case Date: 04/12/2023 Surgeon: Surgeon(s) and Role: [...] There was no imbricating layer, however several fmskhi-ps-jvegcd were placed over the hysterotomy after which [...] tube was visible. This was elevated with [place] clamps and using the LigaSure, starting from [...] 04/12/2023 5:52 PM EDT FALLOPIAN TUBE(S)\LIGATION\TRANS ECTION\ POST-\ABD\STRAIGHT CUTTER MACHINE Routine 04/12/2023 3:27 PM EDT Dehiscence of old uterine scar with extension before onset of labor, delivered [place] Fallopian Tube, ([id number]) 04/12/2023 3:02 PM EDT Dehiscence of old uterine scar with extension before onset of labor, delivered Delivery Only ([id number]) 04/12/2023 3:02 PM EDT Dehiscence of old [...] reflex RPR (04/13/2023 3:10 PM EDT) Pathologist [facility] Syphilis IgG/IgM Negative Negative [facility] Blood 04/13/2023 3:10 PM EDT 04/13/2023 3:36 PM EDT Narrative Resulting Agency Comment Spec In Lab Mary Headley MD CHEMISTRY ORDERABLE S [facility] [place] [address] * (ABNORMAL) Differential, Automated (04/13/2023 5:15 AM EDT) [facility] Neutrophil % 84.2 % [facility] Neutrophil Absolute 15.69(H) 1.70 - 6.10 x10(3)/mc L [facility] Lymph % 7.7 % [facility] Lymphocytes Abs 1.4 0.9 - 3.2 x10(3)/mc L [facility] Monocyte % 7.1 % [facility] Monocyte Abs 1.3(H) 0.3 - 0.9 x10(3)/mc L [facility] Eos % 0.0 % [facility] Eosinophils Abs 0.0 0.0 - 0.4 x10(3)/mc L [facility] Basophil % 0.2 % [facility] Baso Absolute 0.0 0.0 - 0.1 x10(3)/mc L [facility] Immature Gran % 0.80 % [facility] Comment: Immature granulocytes(IG's)percentage and absolute count will include metamyelocytes, myelocytes, and promyelocytes. Blood smears from CBCs yielding IG's will be scanned manually for concordance. If this scan disagrees with the automated IG or if promyelocytes are noted, a manual differential will be performed. Immature Gran Absolute 0.14(H) 0.00 - 0.04 x10(3)/mc L [facility] Blood 04/13/2023 5:15 AM EDT 04/13/2023 5:23 AM EDT Narrative Resulting Agency Comment Spec In Lab Jocelin Mariscal MD HEMATOLOGY ORDERABLE S [facility] [place] [address] * (ABNORMAL) Hemogram (04/13/2023 5:15 AM EDT) White Blood Cell 18.6(H) 4.0 - 9.5 x10(3)/mc L [facility] Red Blood Cell 3.55(L) 4.00 - 5.21 x10(6)/mc L [facility] Hemoglobin 10.4(L) 11.7 - 15.5 g/dL [facility] Hematocrit 30.2(L) 35.7 - 45.8 % [facility] Mean Cell Volume 85.1 82.6 - 94.4 fL [facility] Mean Cell Hemoglobin 29.3 27.1 - 32.0 pg [facility] Mean Cell Hemoglobin Concentration 34.4 31.7 - 35.0 g/dL [facility] Platelet 137(L) 145 - 357 x10(3)/mc L [facility] RDW Standard Deviation 41.2 37.0 - 46.0 fL [facility] RDW coefficient of variation 13.2 11.5 - 14.1 % [facility] Mean Platelet Volume 13.2(H) 7.6 - 12.9 fL [facility] NRBC% auto 0.0 % [facility] NRBC Absolute 0.000 0.000 - 0.000 x10(3)/mc L [facility] Blood 04/13/2023 5:15 AM EDT 04/13/2023 5:23 AM EDT Narrative Resulting Agency Comment Spec In Lab Jocelin Mariscal MD HEMATOLOGY ORDERABLE S Performing Organization Address City/[facility]/ZIP Co de Phone Number [facility] [place] [address] * POCT Glucose (04/12/2023 11:35 PM EDT) Glucose, POC 129 65 - 199 mg/dL [facility] Comment: Supplemental ranges: <140 mg/dL before meals <180 mg/dL all other times of the day Blood 04/12/2023 11:3 5 PM EDT 04/12/2023 11:35 PM EDT Mary Headley MD POINT OF CARE TEST ORDERABLES Performing Organization Address [facility]/[place] Co de Phone Number [facility] [place] [address] * Specimen to Pathology (04/12/2023 5:53 PM EDT) AP Specimen 04/12/2023 5:53 PM EDT 04/12/2023 5:53 PM EDT Narrative [facility] - 04/12/2023 5:53 PM EDT Specimen requisition ordered. ??Separate Pathology report to follow Mary Headley MD PATHOLOGY/CYTOLOGY ORDERABLES Performing Organization Address [facility]/[place] Co de Phone Number [facility] [place] [address] * Specimen to Pathology (04/12/2023 5:53 PM EDT) AP Specimen 04/12/2023 5:53 PM EDT 04/12/2023 5:53 PM EDT Narrative [facility] - 04/12/2023 5:53 PM EDT Specimen requisition ordered. ??Separate Pathology report to follow Mary Headley MD PATHOLOGY/CYTOLOGY ORDERABLES Performing Organization Address [facility]/[place] Co de Phone Number [facility] [place] [address] * Surgical Pathology Report (04/12/2023 5:52 PM EDT) Final Diagnosis [id number] ? Location: BP; BP05; A The signing [...] Obrien Verified: ??04/19/2023 10:37 ??Pathologist Performed at: ??-[facility] Dept. of Pathology, [place] [address] Trade Embalmer: Mahendra Turcios MD, FCAP, ??CLIA Certificate: [id number] SPECIMEN(S) SUBMITTED A - Placenta B - [...] formed cotyledons. Parenchyma: Boggy, purple-red. Sections/Processi ng: Roller Pneumatic sections in 8 cassettes as follows: ?A1: ??Membrane roll ?A2: ??Proximal and distal cord ?A3-A8: ??Full thickness parenchyma, bisected B - Labeled/Fixative: ?? Bilateral fallopian tubes , formalin. Tissue Description: Intact, bilateral salpingectomy. . SPECIMEN PROCESSING Fallopian Tube 1: 12.0 x 0.9 cm, fimbriated. Fallopian Tube 2: 9.8 x 0.9 cm, fimbriated. Sections/Processi ng: Roller Pneumatic sections in 4 cassettes as follows: ?B1: ??Fallopian tube 1 fimbria ?B2: ??Fallopian tube 1 cross sections ?B3: ??Fallopian tube 2 fimbria ?B4: ??Fallopian tube 2 cross sections ??ajw 04/19/2023 10:37 AM EDT [facility] TISSUE SPECIMEN FROM PLACENTA / Unknown 04/12/2023 5:52 PM EDT 04/12/2023 5:52 PM EDT False Vocal Cords, Bilateral 04/12/2023 5:52 PM EDT 04/12/2023 5:52 PM EDT Vicente Zhang MD PATHOLOGY/CYTOLOGY O RDERABLES Performing Organization Address City/[facility]/ZIP Co de Phone Number [facility] [address] [place] [address] * Group B Streptococcus Screen (04/12/2023 2:06 PM EDT) GBS Screen Neg [facility] Vaginal/Rectal 04/12/2023 2: 06 PM EDT 04/12/2023 3:32 PM EDT Comment:Penicillin Allergy?- >Yes Narrative Resulting Agency Comment Spec In Lab Vicente Zhang MD MICROBIOLOGY - GENER AL ORDERABLES Performing Organization Address [facility]/[place] Co de Phone Number [facility] [place] [address] * Group B Strep Culture Screen (04/12/2023 2:06 PM EDT) Group B Streptococcus Culture No Group B Streptococci isolated [facility] Vaginal/Rectal 04/12/2023 2: 06 PM EDT 04/12/2023 3:32 PM EDT Comment:Penicillin Allergy?- >Yes Narrative Resulting Agency Comment Spec In Lab Mary Headley MD MICROBIOLOGY - GENE RAL ORDERABLES Performing Organization Address City/[facility]/ZIP Co de Phone Number [facility] [place] [address] * Type and Screen Validity (04/12/2023 12:00 PM EDT) T&S only valid at [facility] Comment:This Type and Screen result is only valid at the [facility] Blood 04/12/2023 12:0 0 PM EDT 04/12/2023 12:15 PM EDT Narrative Resulting Agency Comment Spec In Lab Vicente Zhang MD BLOOD BANK LAB ORDER SHABNAM Performing Organization Address City/[facility]/[place] Co de Phone Number [facility] [place] [address] * ABORH Recheck Status (04/12/2023 12:00 PM EDT) ABORH Type Recheck Completed [facility] Blood 04/12/2023 12:0 0 PM EDT 04/12/2023 12:15 PM EDT Narrative Resulting Agency Comment Spec In Lab Vicente Zhang MD BLOOD BANK LAB ORDER SHABNAM Performing Organization Address City/[facility]/[place] Co de Phone Number [facility] [place] [address] * (ABNORMAL) Differential, Automated (04/12/2023 12:00 PM EDT) Neutrophil % 72.7 % [facility] Neutrophil Absolute 7.47(H) 1.70 - 6.10 x10(3)/mc L [facility] Lymph % 19.0 % [facility] Lymphocytes Abs 2.0 0.9 - 3.2 x10(3)/mc L [facility] Monocyte % 6.3 % [facility] Monocyte Abs 0.6 0.3 - 0.9 x10(3)/mc L [facility] Eos % 0.5 % [facility] Eosinophils Abs 0.0 0.0 - 0.4 x10(3)/ L [facility] Basophil % 0.4 % [facility] Baso Absolute 0.0 0.0 - 0.1 x10(3)/ L [facility] Immature Gran % 1.10 % [facility] Comment: Immature granulocytes(IG's)percentage and absolute count will include metamyelocytes, myelocytes, and promyelocytes. Blood smears from CBCs yielding IG's will be scanned manually for concordance. If this scan disagrees with the automated IG or if promyelocytes are noted, a manual differential will be performed. Immature Gran Absolute 0.11(H) 0.00 - 0.04 x10(3)/ L [facility] Blood 04/12/2023 12:0 0 PM EDT 04/12/2023 12:17 PM EDT Narrative Resulting Agency Comment Spec In Lab Vicente Zhang MD HEMATOLOGY ORDERABLE S [facility] [place] [address] * (ABNORMAL) Hemogram (04/12/2023 12:00 PM EDT) White Blood Cell 10.3(H) 4.0 - 9.5 x10(3)/mc L [facility] Red Blood Cell 3.85(L) 4.00 - 5.21 x10(6)/ L [facility] Hemoglobin 11.0(L) 11.7 - 15.5 g/dL [facility] Hematocrit 33.0(L) 35.7 - 45.8 % [facility] Mean Cell Volume 85.7 82.6 - 94.4 fL [facility] Mean Cell Hemoglobin 28.6 27.1 - 32.0 pg [facility] Mean Cell Hemoglobin Concentration 33.3 31.7 - 35.0 g/dL [facility] Platelet 137(L) 145 - 357 x10(3)/ L [facility] RDW Standard Deviation 42.0 37.0 - 46.0 fL [facility] RDW coefficient of variation 13.6 11.5 - 14.1 % [facility] Mean Platelet Volume 12.7 7.6 - 12.9 fL [facility] NRBC% auto 0.0 % [facility] NRBC Absolute 0.000 0.000 - 0.000 x10(3)/mc L [facility] Blood 04/12/2023 12:0 0 PM EDT 04/12/2023 12:17 PM EDT Narrative Resulting Agency Comment Spec In Lab Vicente Zhang MD HEMATOLOGY ORDERABLE S Performing Organization Address City/[facility]/ZIP Co de Phone Number [facility] [place] [address] * Antibody screen (04/12/2023 12:00 PM EDT) Ab Screen Interp Negative [facility] LABORATORY Expires at [id number] on: 04/15/2023 [facility] LABOR[facility]ORY Blood 04/12/2023 12:0 0 PM EDT 04/12/2023 12:15 PM EDT Narrative Resulting Agency Comment Spec In Lab Vicente Zhang MD BLOOD BANK LAB ORDER SHABNAM Performing Organization Address City/[facility]/RUST Co de Phone Number [facility] [place] [address] * ABO/Rh Typing (04/12/2023 12:00 PM EDT) ABORH Type A Pos [facility] ITAL LABORATORY Blood 04/12/2023 12:0 0 PM EDT 04/12/2023 12:15 PM EDT Narrative Resulting Agency Comment Spec In Lab Vicente Zhang MD BLOOD BANK LAB ORDER SHABNAM Performing Organization Address City/[facility]/ZIP Co de Phone Number [facility] [place] [address] documented in this encounter Visit Diagnoses Diagnosis [...] Routine documented in this encounter Care Teams Foreign Language Teacher Relationship Specialty Start Date End Date Analisa Martinez [place] [address] PCP - General 11/30/22 documented as of this encounter
--- OUTSIDE RECORDS SUMMARY | 2024-08-14 12:11 | XMS_ITS | Encounter Summary ---
Author Organization [facility] Address [facility] [place] [address] Care Team Providers Care Interactive Digital Media Specialist Name Role Phone Analisa Martinez Primary Care Provider [phone] Encounter Details Date Type Department Care Team [...] on filedocumented in this encounter Care Teams Interactive Digital Media Specialist Relationship Specialty Start Date End Date Analisa Martinez PA [address] [place] [address] PCP - General 11/30/22 documented as of this encounter
--- OUTSIDE RECORDS SUMMARY | 2024-08-14 12:11 | XMS_ITS | Encounter Summary ---
Author Organization [facility] Address [place] [address] Care Team Providers Care Gis Technician Name Role Phone Analisa Martinez Primary Care Provider [phone] Encounter Details Date Type Department Care Team [...] weight loss: -6% MATERNAL INFO: Isabel Julian [id number] G 4 P 3 Significant History: Previous experience: None--first-time Breast Surgery: No Breast Changes During : Yes Breast Exam : Size: X large Shape: Round Venous Pattern: Within Normal Limits Milk Production: Normal pumped over 500 ml in last 24 hours Full Firm Engorged Nipple Exam : Normal large in diameter Color: [place] Compressible: Yes Trauma: no pain or trauma [...] first before introducing a bottle Optimal positioning: Jblk-vt-jdzzht positioning Ongk-gg-dntnu technique Nutritive vs non-nutritive sucking Breast massage [...] education and recommendations. ,Analisa Shepard RN IBCLC [facility] Services documented in this encounter Plan of Treatment Not on file documented as of this encounter Visit Diagnoses Not on filedocumented in this encounter Care Teams Gis Technician Relationship Specialty Start Date End Date Analisa Martinez PA [address] [place] [address] PCP - General 11/30/22 documented as of this encounter
--- OUTSIDE RECORDS SUMMARY | 2024-08-14 12:11 | XMS_ITS | Encounter Summary ---
Author Organization [facility] Address [facility] [place] [address] Care Team Providers Care Train Control Electronic Technician Name Role Phone Analisa Martinez Primary Care Provider [phone] Encounter Details Date Type Department Care Team (Late st Contact Info) Description 04/07/2023 4:00 PM EDT Routine Obstetrics [place] [address] Casey Armendariz MD [facility] [address] OBSTETRICS [place] [address] GA: [id number] Social History Tobacco Use Types [...] Uc's and was going to present to [facility], but was unable to travel here due [...] disorders documented in this encounter Care Teams Train Control Electronic Technician Relationship Specialty Start Date End Date Analisa Martinez PA [address] [place] [address] PCP - General 11/30/22 documented as of this encounter
--- OUTSIDE RECORDS SUMMARY | 2024-08-14 12:11 | XMS_ITS | Encounter Summary ---
Author Organization [facility] Address [facility] Masood [facility] [place] [address] Care Team Providers Care Commutator Repairer Name Role Phone Analisa Martinez Primary Care Provider Encounter Details Date Type Department Care Team (Late st Contact Info) Description 05/24/2023 Orders Only Obstetrics [place] [address] Nitza Murguia MD [facility] OBSTETRICS [place] [address] Jenn infection Social History Tobacco Use Types [...] to sleep or slept in a senior care (including now)? No 05/21/2023 DH IPV Inpatient [...] site documented in this encounter Care Teams Commutator Repairer Relationship Specialty Start Date End Date Analisa [place] [address] PCP - General 11/30/22 documented as of this encounter
--- OUTSIDE RECORDS SUMMARY | 2024-08-14 12:11 | XMS_ITS | Encounter Summary ---
Author Organization [facility] Address [facility] [place] [address] Care Team Providers Care Student Worker Name Role Phone Analisa Martinez Primary Care Provider Encounter Details Date Type Department Care Team (Late st Contact Info) Description 05/26/2023 Telephone Obstetrics [place] [address] Vilma Collins MD [facility] [place] [address] Social History Tobacco Use Types Packs/Day Years [...] place to sleep or slept in a snf (including now)? No 05/21/2023 DH IPV Inpatient [...] mouth documented in this encounter Care Teams Student Worker Relationship Specialty Start Date End Date Analisa Martinez PA [address] [place] [address] PCP - General 11/30/22 documented as of this encounter
--- OUTSIDE RECORDS SUMMARY | 2024-08-14 12:11 | XMS_ITS | Encounter Summary ---
Author Organization [facility] Address [facility] [place] [address] Care Team Providers Care Posting Machine Operator Name Role Phone Analisa Martinez Primary Care Provider [phone] Encounter Details Date Type Department Care Team [...] on filedocumented in this encounter Care Teams Posting Machine Operator Relationship Specialty Start Date End Date Analisa Martinez PA [address] [place] [address] PCP - General 11/30/22 documented as of this encounter
--- OUTSIDE RECORDS SUMMARY | 2024-08-14 12:11 | XMS_ITS | Encounter Summary ---
[place] [address] Care Team Providers Care Plant General Manager Name Role Phone Analisa Martinez Primary Care Provider [phone] Encounter Details Date Type Department Care Team (Late st Contact Info) Description 04/23/2023 Telephone Obstetrics [place] [address] Mery Braswell, RN Social History [...] for this as well. Routed note to [facility] on-call, Dr. Haas. documented in this encounter Plan of Treatment Not on file documented as of this encounter Visit Diagnoses Not on filedocumented in this encounter Care Teams Plant General Manager Relationship Specialty Start Date End Date Analisa Martinez PA [address] [place] [address] PCP - General 11/30/22 documented as of this encounter
--- OUTSIDE RECORDS SUMMARY | 2024-08-14 12:11 | XMS_ITS | Encounter Summary ---
[place] [address] Care Team Providers Care Cath Laboratory Technician Name Role Phone Analisa Martinez Primary Care Provider [phone] Encounter Details Date Type Department Care Team (Latest Contact Info) Description 05/05/2023 10:30 AM EDT Clinical Support Obstetrics [place] [address] At risk for ineffective Social [...] on 5L after her OB provider appointment. Isable had questions about using two Haakas. One on each breast to pump. Her Symphony breast pump that she is renting changes suction strength and is painful. Recommended she return the [facility] pump to [facility]. Recommended that she contact her local [facility] office with assistance to get a personal pump through [place] Medicaid. [facility] Office with Support [phone] Currently pumping with a hand pump and hand expression. Pumping around 4-5 ounces each pumping session, was pumping 8 ounces at each pumping session. Annia is getting frustrated at the breast due to flow of milk after spending 2 weeks in the ICN. Suggested a [employer] systems. Offered to schedule an outpatient appointment. Did not want to commit at this time to an appointment. Verbalized that she will call Services to schedule an appointment if she is not able to connect with help at the [facility] office in [facility]. [phone] Services at [facility] documented in this encounter Plan of Treatment Not on file documented as of this encounter Visit Diagnoses Diagnosis At risk for ineffective documented in this encounter Care Teams Cath Laboratory Technician Relationship Specialty Start Date End Date Analisa Martinez PA [address] [place] [address] PCP - General 11/30/22 documented as of this encounter
--- OUTSIDE RECORDS SUMMARY | 2024-08-14 12:11 | XMS_ITS | Encounter Summary ---
Author Organization [facility] Address [facility] [place] [address] Care Team Providers Care Varnisher Plasticoater Name Role Phone Analisa Martinez Primary Care Provider [phone] Encounter Details Date Type Department Care Team [...] on filedocumented in this encounter Care Teams Varnisher Plasticoater Relationship Specialty Start Date End Date Analisa Martinez PA [address] [place] [address] PCP - General 11/30/22 documented as of this encounter
--- OUTSIDE RECORDS SUMMARY | 2024-08-14 12:11 | XMS_ITS | Encounter Summary ---
[place] [address] Care Team Providers Care Classification Control Clerk Name Role Phone Analisa Martinez Primary Care Provider [phone] Reason for Visit * Auth/Cert (Routine) Specialty Diagnoses / Procedures Referred By Contac t Referred To Contact Diagnoses prrior with window Procedures PRO DELIVERY ONLY ER OBSVO Sujata Prater MD [facility] [address] OBSTET[place]ICS [place] [address] [facility] Referral ID Status Reason Start Date Expiration Date Visits Re quested Visits Authorized [id number] 1 1 Encounter Details Date Type Department Care Team (Late st Contact Info) Description 04/12/2023 3:14 PM EDT Anesthesia Event [place] [address] Reyna Ureña MD Anesthesia Record Procedure Summary [...] cephalic vein (lateral side of arm), left; deza-sbo-msyymj catheter system; Anatomical Landmarks; 20 gauge, 1 in length; John Christensen RN VAS; distraction, tolerated well; 04/15/23; 1018 04/12/23 1215 by Myah Christensen RN 04/15/23 1018 by Tessie Hernandez RN (RETIRED) Peripheral IV Line - Single Lumen 04/12/23; 1234; basilic vein (medial side of arm), left; pqfc-pps-ajvjkv catheter system; Anatomical Landmarks; 20 gauge, 1 [...] Summary Date: 04/12/23 Room / Location: [facility] OR [address] [place] [address] [facility] Anesthesia Start: 1513 Anesthesia Stop: 1745 Procedures: @ DELIVERY (WRVU 16.13) (Bilateral: Abdomen) @FALLOPIAN TUBE(S), TRANSECTION OR LIGATION, ABD APPROACH, POST- (WRVU 5.28) (Abdomen) Diagnosis: 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 Performed by: Resident/GENERAL DOC: Rupert Chavez MD Authorized by: Reyna Ureña MD ~~~~~~~~~~~~~~~~~~~~~~~~~~~~~~~~~~~~~~~~~~~~~~~~~~~~~~~~~~~~ * Anesthesia Preprocedure Evaluation - Reyna Ureña MD - 04/12/2023 7:21 AM EDT Pre-Anesthesia Evaluation for: Isabel Julian a 27 y.o. female. Procedure(s): @ [facility] Patient Active Problem List Diagnosis Date [...] & PLAN: Spinal, PIV Rupert Chavez MD Field Director, PGY3/CA2 Pager # [phone] Region - Informed Consent: Anesthetic plan and [...] shortly after spinal injection. Performed by: ?? Resident/GENERAL DOC: ? Rupert Chavez MD Authorized by: Reyna Ureña MD ~~~~~~~~~~~~~~~~~~~~~~~~~~~~~~~~~~~~~~~~~~~~~~~~~~~~~~~~~~~~ Reyna Ureña MD SENIOR ADMINISTRATIVE SERVICES OFFICER [facility] documented in this encounter Visit Diagnoses [...] mg documented in this encounter Care Teams Classification Control Clerk Relationship Specialty Start Date End Date Analisa Martinez PA [address] [place] [address] PCP - General 11/30/22 documented as of this encounter
--- OUTSIDE RECORDS SUMMARY | 2024-08-14 12:11 | XMS_ITS | Encounter Summary ---
[place] [address] Care Team Providers Care Water Resource Engineer Name Role Phone Analisa Martinez Primary Care Provider [phone] Encounter Details Date Type Department Care Team (Late st Contact Info) Description 05/26/2023 Telephone Obstetrics [place] [address] Loida Hall, RN Social History [...] place to sleep or slept in a prison (including now)? No 05/21/2023 DH IPV Inpatient [...] treating nipple thrush, is considered safe by [facility] and is the recommended by [facility] for treatment of nipple thrush. Understands that cream needs to be wiped off before feeding and states that is cluster-feeding. Would like to have the pills again that she was prescribed before leaving the [facility]. States she was treated with fluconazole 200mg [...] on filedocumented in this encounter Care Teams Water Resource Engineer Relationship Specialty Start Date End Date Analisa Martinez PA [address] [place] [address] PCP - General 11/30/22 documented as of this encounter
--- OUTSIDE RECORDS SUMMARY | 2024-08-14 12:11 | XMS_ITS | Encounter Summary ---
Author Organization [facility]ood [facility] [place] [address] Care Team Providers Care Diecast Machine Operator Name Role Phone Analisa Martinez Primary Care Provider [phone] Encounter Details Date Type Department Care Team (Late st Contact Info) Description 04/23/2023 Orders Only Obstetrics [place] [address] Fide Haas MD [facility] OBSTETRICS [place] [address] Social History Tobacco Use Types Packs/Day Years [...] on filedocumented in this encounter Care Teams Diecast Machine Operator Relationship Specialty Start Date End Date Analisa Martinez PA [address] [place] [address] PCP - General 11/30/22 documented as of this encounter
--- OUTSIDE RECORDS SUMMARY | 2024-08-14 12:11 | XMS_ITS | Encounter Summary ---
Author Organization [facility] Address [facility] [place] [address] Care Team Providers Care Child Care Director Name Role Phone Analisa Martinez Primary Care Provider [phone] Reason for Visit * Reason Comments Follow-up Encounter Details Date Type Department Care Team (Late st Contact Info) Description 05/05/2023 10:00 AM EDT Office Visit Obstetrics [place] [address] Sophie Scanlon MD [facility] [address] OBSTETRICS [place] [address] Separation of wound with drainage, (Primary Dx); Surgical wound infection Social History Tobacco Use Types Packs/Day Years Used Date Smoking Tobacco: Every Day Cigarettes Smokeless Tobacco: Never Comments:Cut back from 2 pac ks Alcohol Use Standard Drinks/Week Comments Not Currently 0 (1 standard drink = 0.6 oz pur e alcohol) [facility] Inpatient Questions Answer Date Recorded Does [...] 16.13) performed by Mary Headley MD at [facility] PRO LIGATE FALLOPIAN TUBE, N/A 04/12/2023 @FALLOPIAN TUBE(S), TRANSECTION OR LIGATION, ABD APPROACH, POST- (WRVU 5.28) performed by Mary Headley MD at [facility] Family History Problem Relation Age [...] hours. 60 tablet 0 vitamin 27 & yigprey-itfq-CM 60 mg iron-1 mg Tablet Take 1 [...] infection documented in this encounter Care Teams Child Care Director Relationship Specialty Start Date End Date Analisa Martinez PA [address] [place] [address] PCP - General 11/30/22 documented as of this encounter
--- OUTSIDE RECORDS SUMMARY | 2024-08-14 12:11 | XMS_ITS | Encounter Summary ---
[place] [address] Care Team Providers Care Road Sign Installer Name Role Phone Analisa Martinez Primary Care Provider [phone] Encounter Details Date Type Department Care Team (Latest Contact Info) Description 04/20/2023 2:30 PM EDT Clinical Support Obstetrics [place] [address] H/O section Social History Tobacco [...] status documented in this encounter Care Teams Road Sign Installer Relationship Specialty Start Date End Date Analisa [place] [address] PCP - General 11/30/22 documented as of this encounter
--- OUTSIDE RECORDS SUMMARY | 2024-08-14 12:11 | XMS_ITS | Encounter Summary ---
[place] [address] Care Team Providers Care Cigar Head Pegger Name Role Phone Analisa Martinez Primary Care Provider [phone] Encounter Details Date Type Department Care Team (Late st Contact Info) Description 04/20/2023 Telephone Obstetrics [place] [address] Maribell Torres RN Social History [...] 04/20/2023 2:04 PM EDT Incoming TC from sIabel Julian 27 y.o. s/p repeat 04/12 at [...] on filedocumented in this encounter Care Teams Cigar Head Pegger Relationship Specialty Start Date End Date Analisa Martinez PA [address] [place] [address] PCP - General 11/30/22 documented as of this encounter
--- OUTSIDE RECORDS SUMMARY | 2024-08-14 12:11 | XMS_ITS | Encounter Summary ---
Author Organization [facility] [place] [address] Care Team Providers Care Shuffle Board Operator Name Role Phone Analisa Martinez Primary Care Provider [phone] Reason for Visit * Auth/Cert (Routine) Specialty Diagnoses / Procedures Referred By Contac t Referred To Contact Diagnoses Wound infection after surgery Procedures EMERGENCY IPI Casey Armendariz MD [facility] OBSTETRICS [place] [address] [facility] Referral ID Status Reason Start Date Expiration Date Visits Re quested Visits Authorized [id number] 1 1 Encounter Details Date Type Department Care Team (Latest Contact Info) Description 04/24/2023 1:36 PM EDT - 04/24/2023 11:01 PM EDT [place] [address] Casey Armendariz MD [facility] OBSTETRICS [place] [address] Discharge Disposition: Home Social History Tobacco Use [...] Isabel Julian Patient Age: 27 y.o. Language: Albanian Race: White Ethnicity: Not nor Admit date: 04/24/2023 Discharge date and time: 05/04/2023 Attending Physician: No att. providers found Discharge Physician: Dr. Fide Haas Care Provider: [facility] Referring Hospital: N/A Follow-up Recommendations for Providers: - 2 week mood check - 6 week visit Inpatient Provider Contact Information: [facility] ENCYCLOPEDIA RESEARCH WORKER Department, Discharge Diagnoses (Hospital Problems) and Secondary [...] Information for the patient's : Annia Prakash [[id number]] INFORMATION Annia Prakash 04/12/2023 4:21 PM by [...] 60 tablet Refills: 0 vitamin 27 & [id number]-[id number]-PZ 60 mg iron-1 mg Tablet Take 1 [...] Sophie Scanlon MD Obstetrics and Gynecology at [facility] Arrive at: Testing Coordinator Area [phone] 05/24/2023 1:45 PM Nitza Murguia MD Obstetrics and Gynecology at [facility] Arrive at: Testing Coordinator Area [phone] Discharge References/Attachments None Hypotension due to anesthesia [...] by mouth daily. 05/24/2023 vitamin 27 & dyrdkiw-rzan-KM 60 mg iron-1 mg Tablet Take 1 [...] she was visiting her baby in the [facility] and wanted to get checked out. No redness or pain around the incision. No fevers or chills. Otherwise feeling well and plan was for d/c home from [facility] today for baby. On she was [...] stay overnight andbaby can't go home from [facility]. Does not want surgery. We reviewed [...] (one dose one before she goes, will garbage pick up man rest @ pharmacy in AM) and f/u [...] for Visit: 27 y.o. Female presents to [facility] with concern for wound infection. History of Present Illness: Isabel is a 27 year old G4 now P2113, now POD#12 s/p scheduled repeat and bilateral salpingectomy who presents for concern for wound infection. She presents with her partner, who assists inrelaying the history. Notes that in the last 24 hours, has had significant drainage from Pfannenstiel incision. Drainage clear to [id number]-[id number]. Patient provides pictures and notes that she [...] 16.13) performed by Mary Headley MD at [facility] PRO LIGATE FALLOPIAN TUBE, N/A 04/12/2023 @FALLOPIAN TUBE(S), TRANSECTION OR LIGATION, ABD APPROACH, POST- (WRVU 5.28) performed by Mary Headley MD at [facility] Past Obstetric History: OB History Para Term [...] mg by mouth daily. vitamin 27 & nzaznwe-ttzc-KQ 60 mg iron-1 mg Tablet Take 1 [...] of 04/24/23 CT Pelvis Soft Tissue (GI COVER MAT MACHINE OPERATOR) w Contrast (Exam End: 04/24/2023 4:06 PM) [...] who have questions please contact the health health care manager that requested your imaging first. Assessment/Plan: Isabel [...] discussion was had with patient with Dr. Casye Armendariz regarding options for management, including taking the patient to the operating room versus starting her on antibiotics. Care of the patient was ultimately assumed by Dr. Nizta Rodriguez, who evaluated the patient and determined the best plan of care with her (see note from Dr. Rodrigeuz for further details of their discussion). Patient ultimately discharged home on Clindamycin 450 mg TID. To follow up on Wednesday, 04/28. Patient aware of return precautions including fever, worsening pain, development of surrounding erythema, or any new or concerning symptoms. Risa Anne MD Obstetrics Resident Birthing [place] Phone: [phone] Pager: [phone] Associated attestation - Casey Armendariz MD - [...] PM EDT CT PELVIS SOFT TISSUE (GI COVER MAT MACHINE OPERATOR)W CONTRAST Routine 04/24/2023 4:06 PM EDT ANAEROBIC CULTURE Routine 04/24/2023 2:3 1 PM EDT HC BODY FLUID CULTURE Routine 04/24/2023 2:31 PM EDT BODY FLUID CULTURE, AEROBIC Routine 04/24/2023 2:31 PM EDT documented in this encounter Results * (ABNORMAL) Differential, Automated (04/24/2023 8:26 PM EDT) Neutrophil % 73.3 % [facility] Neutrophil Absolute 7.23(H) 1.70 - 6.10 x10(3)/mc L [facility] Lymph % 19.8 % [facility] Lymphocytes Abs 2.0 0.9 - 3.2 x10(3)/mc L [facility] Monocyte % 5.6 % [facility] Monocyte Abs 0.6 0.3 - 0.9 x10(3)/ L [facility] Eos % 0.6 % [facility] Eosinophils Abs 0.1 0.0 - 0.4 x10(3)/ L [facility] Basophil % 0.3 % [facility] Baso Absolute 0.0 0.0 - 0.1 x10(3)/ L [facility] Immature Gran % 0.40 % [facility] Comment: Immature granulocytes(IG's)percentage and absolute count will include metamyelocytes, myelocytes, and promyelocytes. Blood smears from CBCs yielding IG's will be scanned manually for concordance. If this scan disagrees with the automated IG or if promyelocytes are noted, a manual differential will be performed. Immature Gran Absolute 0.04 0.00 - 0.04 x10(3)/ L [facility] Blood 04/24/2023 8:26 PM EDT 04/24/2023 8:34 PM EDT Narrative Resulting Agency Comment Spec In Lab Vicente Zhang MD HEMATOLOGY ORDERABLE S [facility] [place] [address] * (ABNORMAL) Hemogram (04/24/2023 8:26 PM EDT) White Blood Cell 9.9(H) 4.0 - 9.5 x10(3)/ L [facility] Red Blood Cell 3.32(L) 4.00 - 5.21 x10(6)/ L [facility] Hemoglobin 9.4(L) 11.7 - 15.5 g/dL [facility] Hematocrit 28.8(L) 35.7 - 45.8 % [facility] Mean Cell Volume 86.7 82.6 - 94.4 fL [facility] Mean Cell Hemoglobin 28.3 27.1 - 32.0 pg [facility] Mean Cell Hemoglobin Concentration 32.6 31.7 - 35.0 g/dL [facility] Platelet 191 145 - 357 x10(3)/mc L [facility] RDW Standard Deviation 43.5 37.0 - 46.0 fL [facility] RDW coefficient of variation 13.8 11.5 - 14.1 % [facility] Mean Platelet Volume 12.5 7.6 - 12.[address] [facility] NRBC% auto 0.0 % [facility] NRBC Absolute 0.000 0.000 - 0.000 x10(3)/mc L [facility] Blood 04/24/2023 8:26 PM EDT 04/24/2023 8:34 PM EDT Narrative Resulting Agency Comment Spec In Lab Vicente Zhang MD HEMATOLOGY ORDERABLE S [facility] [place] [address] * (ABNORMAL) Comprehensive metabolic panel (non-fasting) (04/24/2023 8:26 PM EDT) Glucose 82 65 - 199 mg/dL [facility] Comment:Diabetes: >=200 mg/d L plus symptoms Blood Urea Nitrogen 8 8 - 18 mg/dL [facility] Creatinine 0.68(L) 0.70 - 1.20 mg/dL [facility] Sodium 141 135 - 145 mmol/L [facility] Potassium 3.7 3.5 - 5.0 mmol/L [facility] Comment: Please note: ??Patients with WBC >100,000 may have falsely elevated Potassium levels. ??For accurate Potassium quantification in these patients send serum separator tube (gold top) for subsequent determinations. ??Contact the Clinical Chemistry Laboratory if there are any questions. Chloride 108(H) 98 - 107 mmol/L [facility] Carbon Dioxide 20(L) 22 - 31 mmol/L [facility] Anion Gap 13 5 - 15 mmol/L [facility] Calcium 8.6 8.5 - 10.5 mg/dL [facility] Protein, Total 6.3 6.1 - 8.0 g/dL [facility] Albumin 3.3 3.2 - 5.2 g/dL [facility] Aspartate Aminotransferase 9 0 - 30 unit/L [facility] Alanine Aminotransferase 6 0 - 30 unit/L [facility] Alkaline Phosphatase 81 35 - 105 unit/L [facility] Bilirubin, Total <0.2(L) 0.2 - 1.3 mg/dL [facility] Est Glomerular Filtration Rate 122 >=60 mL/min/1. 73 m?? [facility] Comment: This patient's estimated GFR was [...] In Lab Casey Armendariz MD CHEMISTRY ORDERABLES [facility] [place] [address] * CT Pelvis Soft Tissue (GI COVER MAT MACHINE OPERATOR) w Contrast (04/24/2023 4:06 PM EDT) Anatomical [...] who have questions please contact the health health care manager that requested your imaging first. ? Narrative 04/24/2023 6:01 PM EDT EXAMINATION: CT PELVIS SOFT TISSUE (GI COVER MAT MACHINE OPERATOR)W CONTRAST CLINICAL HISTORY: assess subcutaneous incisional abscess [...] 04/24/2023 EXAMINATION: CT PELVIS SOFT TISSUE (GI COVER MAT MACHINE OPERATOR)W CONTRAST CLINICAL HISTORY: assess subcutaneous incisional abscess [...] patients who have questions please contactthe health health care manager that requested your imaging first. Casey Armendariz MD IMG CT ORDERABLES * Anaerobic Culture (04/24/2023 2:31 PM EDT) Anaerobic Culture No anaerobic organisms isolated [facility] Abdominal Fluid 04/24/2023 2 :31 PM EDT 04/24/2023 3:05 PM EDT Comment:Culture from probing of Pfannenstiel incision Narrative Resulting Agency Comment Spec In Lab Risa Anne MD MICROBIOLOGY - GEN ERAL ORDERABLES Performing Organization Address City/[facility]/ZIP Co de Phone Number [facility] [place] [address] * (ABNORMAL) Body Fluid Culture, Aerobic (04/24/2023 2:31 PM EDT) Body Fluid Culture Few mixed Gram Negative and Positive organisms(A) [facility] Gram Stain Cytocentrifuge Gram Stain performed Neutrophils seen Moderate Gram Positive Cocci seen (A) [facility] Organism Gram Positive Cocci(A) [facility] Abdominal Fluid 04/24/2023 2 :31 PM EDT 04/24/2023 3:05 PM EDT Comment:Culture from probing of Pfannenstiel incision Narrative Resulting Agency Comment Spec In Lab Risa Anne MD MICROBIOLOGY - GEN ERAL ORDERABLES Performing Organization Address [facility] Co de Phone Number [facility] [place] [address] documented in this encounter Visit Diagnoses Diagnosis [...] Mccoy) documented in this encounter Care Teams Shuffle Board Operator Relationship Specialty Start Date End Date Analisa Martinez PA [facility] [place] [address] PCP - General 11/30/22 documented as of this encounter
--- OUTSIDE RECORDS SUMMARY | 2024-08-14 12:11 | XMS_ITS | Encounter Summary ---
[place] [address] Care Team Providers Care Neurophysiological Technician Name Role Phone Analisa Martinez Primary Care Provider [phone] Encounter Details Date Type Department Care Team (Late st Contact Info) Description 05/31/2023 Telephone Obstetrics [place] [address] Sharla Garvey MD [address] [facility] [address] [place], [place] [id number] Social History Tobacco Use Types Packs/Day Years [...] place to sleep or slept in a half-way (including now)? No 05/21/2023 IPV Inpatient Questions [...] Garvey MD - 05/31/2023 1:43 PM EDT Perpetual Inventory Clerk Telephone Note Patient ID: Isabel Julian is a 27 y.o. . Pt is s/p RCS and BS 04/12/2023. Pt confirmed by full name and . Pt states she was told by [facility] to call and notify [facility] that she had some back pain and that she went to [facility] and is now being treated for a PE following CT. Said she was told she has clots in the bottom of her left lung. She is on Lovenox 130 mg daily x 3 mo. She weights 190lbs. She has a PCP and Bakery Assistant whom she will see tomorrow. Diagnosis added to pt chart. As pt is establishing care w/ PCP and Bakery Assistant, discussed that these are appropriate for management. Reviewed warning signs to present to closest ED (SOB, chest pain, concerns). Sharla Garvey MDY PGY4 documented in this encounter Plan of Treatment Not on file documented as of this encounter Visit Diagnoses Diagnosis Other acute pulmonary embolism with acute cor pulmonale documented in this encounter Care Teams Neurophysiological Technician Relationship Specialty Start Date End Date Analisa Martinez PA [address] [place] [address] PCP - General 11/30/22 documented as of this encounter
--- OUTSIDE RECORDS SUMMARY | 2024-08-14 12:11 | XMS_ITS | Encounter Summary ---
[place] [address] Care Team Providers Care Manager User Interface Name Role Phone Analisa Martinez Primary Care Provider [phone] Encounter Details Date Type Department Care Team (Late st Contact Info) Description 05/24/2023 Telephone Obstetrics [place] [address] Macarena Priest, RN Social History [...] 05/24/2023 4:42 PM EDT Isabel Julian 6wPP [facility] Reason for call: thrush Pt reports that her daughter's bookmaker's clerk diagnosed the baby with thrush - pt states her baby is getting treated with nystatin, she would like treatment as well. Denies pain or cracking at nipples,they are a little red and it hurts when she latches. I stated I would reach out to [facility] transformation specialist, but that clinic is closing soon and [...] filedocumented in this encounter Care Teams Manager User Interface Relationship Specialty Start Date End Date Analisa [place] [address] PCP - General 11/30/22 documented as of this encounter
--- OUTSIDE RECORDS SUMMARY | 2024-08-14 12:11 | XMS_ITS | Encounter Summary ---
Author Organization [facility] [place] [address] Care Team Providers Care Felt Finishing Supervisor Name Role Phone Analisa Martinez Primary Care Provider [phone] Encounter Details Date Type Department Care Team (Late st Contact Info) Description 04/16/2023 Orders Only Obstetrics [place] [address] Ashley Valdes MD [facility] [place] [address] Social History Tobacco Use Types Packs/Day Years [...] on filedocumented in this encounter Care Teams Felt Finishing Supervisor Relationship Specialty Start Date End Date Analisa Martinez PA [address] [place] [address] PCP - General 11/30/22 documented as of this encounter
--- OUTSIDE RECORDS SUMMARY | 2024-08-14 12:11 | XMS_ITS | Encounter Summary ---
Author Organization [facility] Address [facility] [place] [address] Care Team Providers Care Air Pollution Specialist Name Role Phone Analisa Martinez Primary Care Provider [phone] Encounter Details Date Type Department Care Team (Latest Contact Info) Description 05/24/2023 1:45 PM EDT Visit Obstetrics [place] [phone] Nitza Murguia MD [facility] OBSTETRICS [place] [address] care and examination; Separation of wound with [...] mg by mouth daily. vitamin 27 & gyylzgl-qtmb-HQ 60 mg iron-1 mg Tablet Take 1 [...] wound, documented in this encounter Care Teams Air Pollution Specialist Relationship Specialty Start Date End Date Analisa Martinez PA [address] [place] [address] PCP - General 11/30/22 documented as of this encounter
--- OUTSIDE RECORDS SUMMARY | 2024-08-14 12:11 | XMS_ITS | Encounter Summary ---
Author Organization [facility] [place] [address] [address] Team Prov[address] Care [address] Manager Name Role Phone Analisa Martinez Primary Care Provider [phone] Encounter Details Date Type Department Care Team (Late st Contact Info) Description 04/26/2023 Telephone Obstetrics [place] [phone] Helene Omer MD [facility] DR OBSTETRICS & [place] [address] Social History Tobacco Use Types Packs/Day Years [...] on filedocumented in this encounter Care Teams Rd Manager Relationship Specialty Start Date End Date Analisa Martinez PA [address] [place] [address] PCP - General 11/30/22 documented as of this encounter
--- OUTSIDE RECORDS SUMMARY | 2024-08-14 12:11 | XMS_ITS | Encounter Summary ---
Author Organization [facility] Address [facility] [place] [address] Care Team Providers Care Child Life Therapist Name Role Phone Analisa Martinez Primary Care Provider [phone] Encounter Details Date Type Department Care Team [...] room. She met with a counselor at [facility] who encouraged her to pump every hour [...] have follow up support with Stephany at [facility] where she plans cristinaee MD Analisa Robertson RN, IBCLC [facility] Services documented in this encounter Plan of Treatment Not on file documented as of this encounter Visit Diagnoses Not on filedocumented in this encounter Care Teams Child Life Therapist Relationship Specialty Start Date End Date Analisa [place] [address] PCP - General 11/30/22 documented as of this encounter
--- OUTSIDE RECORDS SUMMARY | 2024-08-14 12:11 | XMS_ITS | Encounter Summary ---
Author Organization [facility] Address [facility] [place] [address] Care Team Providers Care Swine Extension Field Specialist Name Role Phone Analisa Martinez Primary Care Provider [phone] Encounter Details Date Type Department Care Team (Late st Contact Info) Description 05/27/2023 Orders Only Obstetrics [place] [phone] Nitza Murguia MD [facility] OBSTETRICS [place] [address] Social History Tobacco Use Types Packs/Day Years [...] on filedocumented in this encounter Care Teams Swine Extension Field Specialist Relationship Specialty Start Date End Date Analisa [place] [address] PCP - General 11/30/22 documented as of this encounter
--- OUTSIDE RECORDS SUMMARY | 2024-08-14 12:11 | XMS_ITS | Encounter Summary ---
Author Organization [facility] [place] [address] Care Team Providers Care Mail Opener Name Role Phone Analisa Martinez Primary Care Provider [phone] Encounter Details Date Type Department Care Team (Late st Contact Info) Description 05/20/2023 Telephone Obstetrics [place] [address] Jody Arora Social History Tobacco [...] on filedocumented in this encounter Care Teams Mail Opener Relationship Specialty Start Date End Date Analisa [place] [address] PCP - General 11/30/22 documented as of this encounter
--- OUTSIDE RECORDS SUMMARY | 2024-08-14 12:11 | XMS_ITS | Encounter Summary ---
Author Organization [facility] [address] Care Team Providers Care Underwear Cutter Name Role Phone Analisa Martinez Primary Care Provider [phone] Encounter Details Date Type Department Care Team (Late st Contact Info) Description 04/24/2023 Telephone Obstetrics [place] [phone] Vicente Zhang MD [facility] OBSTETRICS & [place] [address] Social History Tobacco Use Types Packs/Day Years [...] the next 12 hours. [facility] to triage for evaluation. fish hatchery man updated. Vicente Zhang MD, PGY3 Obstetrics and Gynecology 04/24/2023 documented in this encounter Plan of Treatment Not on file documented as of this encounter Visit Diagnoses Not on filedocumented in this encounter Care Teams Underwear Cutter Relationship Specialty Start Date End Date Analisa [place] [address] PCP - General 11/30/22 documented as of this encounter
--- OUTSIDE RECORDS SUMMARY | 2024-08-14 12:11 | XMS_ITS | Encounter Summary ---
[place] [address] Care Team Providers Care Semiconductor Wafers Etch Operator Name Role Phone Analisa Martinez Primary Care Provider [phone] Encounter Details Date Type Department Care Team (Late st Contact Info) Description 04/29/2023 Telephone Obstetrics [place] [address] Macarena Priest RN Social History [...] pt, got VM for spouse. Will send [facility]. documented in this encounter Plan of Treatment Not on file documented as of this encounter Visit Diagnoses Not on filedocumented in this encounter Care Teams Semiconductor Wafers Etch Operator Relationship Specialty Start Date End Date Analisa Martinez PA [address] [place] [address] PCP - General 11/30/22 documented as of this encounter
--- OUTSIDE RECORDS SUMMARY | 2024-08-14 12:11 | XMS_ITS | Encounter Summary ---
[place] [address] Care Team Providers Care Paving Bed Maker Name Role Phone Analisa Martinez Primary Care Provider [phone] Reason for Visit * Auth/Cert (Routine) Specialty Diagnoses / Procedures Referred By Contac t Referred To Contact Diagnoses prrior with window Procedures PRO DELIVERY ONLY ER OBSVO Sujata Prater MD [facility] DR OBSTETRICS [place] [address] [facility] Referral ID Status Reason Start Date Expiration Date Visits Re quested Visits Authorized [id number] 1 1 Encounter Details Date Type Department Care Team (Latest Contact Info) Description 04/12/2023 10:19 AM EDT - 04/15/2023 4:16 PM EDT [place] [id number] Mary Headley MD Dehiscence of old uterine [...] Denise Julian Patient Age: 27 y.o. Language: German Race: White Ethnicity: Not nor Admit date: 04/12/2023 Discharge date and time: 04/15/2023 Attending Physician: Mary Headley MD Discharge Physician: Dr. Fide Haas Care Provider: [facility] Referring Hospital: N/A Follow-up Recommendations for Providers: - 2 week mood check - 6 week visit Inpatient Provider Contact Information: [facility] MAINTENANCE ADVISOR Department, Discharge Diagnoses (Hospital Problems) and Secondary [...] for the patient's : Rajesh Julian Girl [[id number]] INFORMATION Rajesh Julian 04/12/2023 4:21 PM by Lower Segment Transverse Sex: female Gestational Age: 36w2d [place] Measurements: Weight: 6 lb 5.9 oz (2890 [...] as: Protonix Refills: 0 vitamin 27 & [id number]-UA 60 mg iron-1 mg Tablet Take 1 [...] Scheduling Instructions: Comments: Denise Julian [address] [place] [address] [facility] [id number] Infant's : 04/12/23 Insurance: [place] Payor Plan Address Payor Plan Phone Number Payor Plan Fax Number Effective Dates [address] 01/25/2023 - None Entered [facility] [address] Subscriber Name Subscriber Date Member ID DENISE JULIAN 1995 [id number] [employer] # [phone] Symphony breast pump [id number] Length of need: [...] not provide sufficient milk for this baby. [facility] NPI #: [id number] [employer] [employer] [place] [facility] [place] MEDICAID MEDICAL NECESSITY FORM (MNF) ORTHOTICS, PROSTHETICS, MEDICAL SUPPLIES & EQUIPMENT All claims for supplies and equipment require a written order. Orders must be signed by a physician, physician salon assistant, or nurse practitioner. All home health [...] or on other documentation submitted to the [facility] and DXC. The codes submitted to [facility] and DXC must matchthe description documented by the ordering provider. All orders must adhere to state and federal rules and regulations. [place] Medicaid Rules can be found online at [email or web address]-[email or web address]. Section A: (must be completed or reviewed and signed by ordering provider) Beneficiary's name: Denise Julian Medicaid ID#: [place] Pay[place] Plan Address Payor Plan Phone Number Payor Plan Fax Number Effective Dates [facility] 888 01/25/2023 - None Entered [facility] [phone] Subscriber Name Subscriber Date Member ID DENISE JULIAN 1995 [id number] Diagnoses: born at 36 weeks 2 days [...] address: Please see ordering physician signature below. [facility], [address] [place] [address], [place] [address] 6. Ordering provider's signature: Please see order [...] identified in the Provider Manual, available at: [email or web address]. For exceptions, an MNF must be kept [...] signed, and dated by the ordering physician/physician salon assistant/nurse practitioner. Section B must be completed [...] [facility] and to [facility] for billing), medical necessity rationale, expected length of need (will be interpreted as months unless stated otherwise), and the number ofitems needed (for example: 2 bottles of sterile saline per month). NOTE: If the quantity ordered ismore than the number allowed (based on customary usage and as listed in the [facility] DME Restriction list, available at: [email or web address].gov/for-providers/avufwyro-tcdamfek-qioexebtlv), an explanation from the physician is required. [...] Hospital grade rental pump Size requested: Follow-up [[id number] Custom] As directed Process Instructions: Scheduling Instructions: Comments: - gestational diabetic counseling with coding educator at the time of the visit [...] aware, opioid use is a concern in [place] and [place]. We recommend that families with any member [...] Resources National Suicide Hotlines: or [place]: Call/Text [facility] Mental Health Crisis Hotline: Call/Text [address] [facility] Mental Health Hotline: Call/Text Call your doctor or behavioral health assistant for: Seizure (call 911) Headache which isn't [...] you follow up appointment. Your [facility] Provider can be reached during office hours at [facility] AFTER OFFICE HOURS for the marketing technology coordinator or behavioral health assistant ultrasonic welding machine operator Post- Warning Signs Most women who give [...] by mouth daily. 05/24/2023 vitamin 27 & iambhry-wwvg-ZA 60 mg iron-1 mg Tablet Take 1 [...] for the patient's : Young, Baby Girl [[id number]] Delivery Date and Time:04/12/2023 4:21 PM Delivery [...] MSW - 04/14/2023 3:36 PM EDT [facility] Social Work Note Patient: DENISE [...] needed/desired by patient. TITO Melo Pronouns: She/Her Catheterization Laboratory Technician [email or web address] Pager: [phone] [email or web address] [facility] * Trina Bravo [...] mg by mouth daily. vitamin 27 & jirkwds-mhsk-WO 60 mg iron-1 mg Tablet Take 1 [...] 135, Variability: moderate, Accels: yes, Decels: none, Gate: none Lab Results Component Value Date ABORH [...] seen and discussed with Dr. Headley, Attending MAINTENANCE ADVISOR. Vicente Zhang MD, PGY3 Obstetrics and Gynecology [...] slightly. Analisa Shepard RN, IBCLC [facility] Services * Plan of Care - Cathy [...] weight loss: -4% MATERNAL INFO: Denise Julian [id number] 1995 G 4 P 3 Significant History: [...] ice packs after pumping X 48 hours [place] oil to nipples prior to pumping Frequent [...] recommendations. Analisa Shepard RN, IBCLC [facility] * Note - Jannette Lorenz RN [...] pump. She has rented one via the [employer]. She is sized to a 24 mm flange. We discussed pumping techniques. RECOMMENDATIONS: Breast massage and hand expression before and during pumping [place] oil to nipples prior to pumping Pump [...] Betzy / Jennifer Ramírez Initial Assessment This junior underwriter introduced self and reviewed role; services were accepted. Patient Name: Denise Young Child's Legal Name (if applicable): Annia Beauchamp Opalsharon Source of Information: Chart Review and patient interview Initial Assessment for: Mother / Infant Couplet Was Conifer contacted to update information? No Home Address confirmed as: [address] [facility] [address] Verified Phone Numbers confirmed as: Extended Emergency Contact Information Primary Emergency Contact: Carl Prakash Address: [address] [place] [address] [place] Relation: Clotilde Primary Care Provider listed as: BRIDGETT Turner /Child PCP, if different: Will be Dr. Lloyd Chamberlain, [facility] Reason for Hospitalization: Patient Active [...] / support system while patient admitted to [facility] [place]: Rooming Critical access hospital, Information regarding [facility] given Nutrition Food: Secure Current Nutrition of Patient: PO - regular diet Breast pump needs: Hospital grade breast pump rental provided (Given rental pump number [id number], approved by Brianna holliday [facility]) Social and Community Resources: Patient is not employed. Her partner, Carl Prakash, is employed PTas a senior sales representative for [employer]). Transportation Baseline Transportation: Personal Vehicle Transportation at Discharge: Personal Vehicle - Family / Friend to drive Current Patient / Caregiver Coping: coping okay, teary at times Child Life Consult Needed for Other Children in the Home / Family: declined APPLE THINNER Consult Needed: possibly Health Coverage confirmed as: [place] Pay[place] / Plan[place] / Product Type: *No Product type* / N/A Infant patient to be added to above insurance plan: Yes Prescription Coverage: Yes Preferred Pharmacy: [facility] [address] [place], [place] - [address] [place] [id number] Anticipated Barriers to Discharge / Special Considerations: no Plan: Patient [facility] when medically stable. Follow up with OB team. Infant to discharge home with PCP and VNA follow up. environmental emergencies assistant / APPLE THINNER remain available as needed for coordination of [...] note for further details. Dr. Headley, attending Rehab Aide, present for entire delivery without conflicting clinical responsibilities. Maria Teresa Dhillon MD, PGY4 Obstetrics and Gynecology Information for the patient's : Eliel, Baby Girl [[id number]] DELIVERY SUMMARY FOR Baby Girl Young (please [...] QBL Anesthesia 880 mL Total 880 Delivery ([place]) Delivery Date: 04/12/23 Delivery Time: 4:21:00 PM Sex: Female Presentation: Vertex Attempted ?: No Delivery Type: Classification: scheduled Delivery Type (Specific): Lower Segment Transverse Shoulder Dystocia Shoulder dystocia present?: No Delivery Information Delivery Location: [place] Delivering Clinician: Vicente Zhang MD [facility] Staff Present: Yes Other Personnel: Provider Role Chandrika Elmore, belt builder helper Nurse Mary Headley MD Shotblast Operator Tami Victor, belt builder helper Assist Maria Teresa Dhillon MD Resident Navya Martinez, [facility] Anesthesia Method: Combined Spinal/Epidural Cord Vessels: 3 [...] PPV intermittently for ~30 minutes. Transferred to [facility] and placed on Bubble CPAP adjusting to CPAP of 7, 25-35% FiO2. (per respiratorynote) Maternal [place] Feeding and Skin to Skin Maternal Choice for (s) Feeding on Admission: Reason skin to skin not initiated: Acuity [place] Medications Medications Given: vitamin K, erythromycin Measurements [...] Operative Note Patient Name: Denise Julian : [id number] MR#: [id number] Case Date: 04/12/2023 Surgeon: Surgeon(s) and Role: [...] - 04/12/2023 3:45 PM EDT [facility] Operative Note Patient Name: Denise Julian : [id number] MR#: [id number] Case Date: 04/12/2023 Surgeon: Surgeon(s) and Role: [...] There was no imbricating layer, however several mazlso-ym-gcldze were placed over the hysterotomy after which [...] not need to include opening and closing). Mray Headley MD 04/14/2023 documented in this encounter [...] 04/12/2023 5:52 PM EDT FALLOPIAN TUBE(S)\LIGATION\TRANS ECTION\ POST-\ABD\GAS AND OIL CHECKER Routine 04/12/2023 3:27 PM EDT Dehiscence of old uterine scar with extension before onset of labor, delivered [place] Fallopian Tube, (28066) 04/12/2023 3:02 PM EDT Dehiscence of old uterine scar with extension before onset of labor, delivered Delivery Only (35101) 04/12/2023 3:02 PM EDT Dehiscence of old [...] 3:10 PM EDT) Syphilis IgG/IgM Negative Negative [facility] Blood 04/13/2023 3:10 PM EDT 04/13/2023 3:36 PM EDT Narrative Resulting Agency Comment Spec In Lab Mary Headley MD CHEMISTRY ORDERABLE S [facility] [place] [address] * (ABNORMAL) Differential, Automated (04/13/2023 5:15 AM EDT) Neutrophil % 84.2 % [facility] Neutrophil Absolute 15.69(H) 1.70 - 6.10 x10(3)/mc L [facility] Lymph % 7.7 % [facility] Lymphocytes Abs 1.4 0.9 - 3.2 x10(3)/mc L [facility] Monocyte % 7.1 % [facility] Monocyte Abs 1.3(H) 0.3 - 0.9 x10(3)/mc L [facility] Eos % 0.0 % [facility] Eosinophils Abs 0.0 0.0 - 0.4 x10(3)/mc L [facility] Basophil % 0.2 % [facility] Baso Absolute 0.0 0.0 - 0.1 x10(3)/mc L [facility] Immature Gran % 0.80 % [facility] Comment: Immature granulocytes(IG's)percentage and absolute count will include metamyelocytes, myelocytes, and promyelocytes. Blood smears from CBCs yielding IG's will be scanned manually for concordance. If this scan disagrees with the automated IG or if promyelocytes are noted, a manual differential will be performed. Immature Gran Absolute 0.14(H) 0.00 - 0.04 x10(3)/mc L [facility] Blood 04/13/2023 5:15 AM EDT 04/13/2023 5:23 AM EDT Narrative Resulting Agency Comment Spec In Lab Jocelin Mariscal MD HEMATOLOGY ORDERABLE S Performing Organization Address City/[facility]/ZIP Co de Phone Number [facility] [place] [address] * (ABNORMAL) Hemogram (04/13/2023 5:15 AM EDT) White Blood Cell 18.6(H) 4.0 - 9.5 x10(3)/mc L [facility] Red Blood Cell 3.55(L) 4.00 - 5.21 x10(6)/[facility] Hemoglobin 10.4(L) 11.7 - 15.5 g/dL [facility] Hematocrit 30.2(L) 35.7 - 45.8 % [facility] Mean Cell Volume 85.1 82.6 - 94.4 fL [facility] Mean Cell Hemoglobin 29.3 27.1 - 32.0 pg [facility] Mean Cell Hemoglobin Concentration 34.4 31.7 - 35.0 g/dL [facility] Platelet 137(L) 145 - 357 x10(3)/mc L [facility] RDW Standard Deviation 41.2 37.0 - 46.0 fL [facility] RDW coefficient of variation 13.2 11.5 - 14.1 % [facility] Mean Platelet Volume 13.2(H) 7.6 - 12.9 fL [facility] NRBC% auto 0.0 % [facility] NRBC Absolute 0.000 0.000 - 0.000 x10(3)/mc L [facility] Blood 04/13/2023 5:15 AM EDT 04/13/2023 5:23 AM EDT Narrative Resulting Agency Comment Spec In Lab Jocelin Mariscal MD HEMATOLOGY ORDERABLE S Performing Organization Address City/[facility]/ZIP Co de Phone Number [facility] [place] [address] * POCT Glucose (04/12/2023 11:35 PM EDT) Glucose, POC 129 65 - 199 mg/dL [facility] Comment: Supplemental ranges: <140 mg/dL before meals <180 mg/dL all other times of the day Blood 04/12/2023 11:3 5 PM EDT 04/12/2023 11:35 PM EDT Mary Headley MD POINT OF CARE TEST ORDERABLES Performing Organization Address [facility] Co de Phone Number [facility] [place] [address] * Specimen to Pathology (04/12/2023 5:53 PM EDT) AP Specimen 04/12/2023 5:53 PM EDT 04/12/2023 5:53 PM EDT Narrative [facility] - 04/12/2023 5:53 PM EDT Specimen requisition ordered. ??Separate Pathology report to follow Mary Headley MD PATHOLOGY/CYTOLOGY ORDERABLES Performing Organization Address [facility] Co de Phone Number [facility] [place] [address] * Specimen to Pathology (04/12/2023 5:53 PM EDT) AP Specimen 04/12/2023 5:53 PM EDT 04/12/2023 5:53 PM EDT Narrative [facility] - 04/12/2023 5:53 PM EDT Specimen requisition ordered. ??Separate Pathology report to follow Mary Headley MD PATHOLOGY/CYTOLOGY ORDERABLES Performing Organization Address [facility] Co de Phone Number [facility] [place] [address] * Surgical Pathology Report (04/12/2023 5:52 PM EDT) Final Diagnosis [id number] ? Location: BP; BP05; A The signing [...] ??04/19/2023 10:37 ??Pathologist Performed at: ??-[facility] Dept. of Pathology, [place] [address] Real Estate Clerk: Mahendra Turcios MD, FCAP, ??CLIA Certificate: [id number] SPECIMEN(S) SUBMITTED A - Placenta B - [...] formed cotyledons. Parenchyma: Boggy, purple-red. Sections/Processi ng: Customs Investigator sections in 8 cassettes as follows: ?A1: ??Membrane roll ?A2: ??Proximal and distal cord ?A3-A8: ??Full thickness parenchyma, bisected B - Labeled/Fixative: ?? Bilateral fallopian tubes , formalin. Tissue Description: Intact, bilateral salpingectomy. . SPECIMEN PROCESSING Fallopian Tube 1: 12.0 x 0.9 cm, fimbriated. Fallopian Tube 2: 9.8 x 0.9 cm, fimbriated. Sections/Processi ng: Customs Investigator sections in 4 cassettes as follows: ?B1: ??Fallopian tube 1 fimbria ?B2: ??Fallopian tube 1 cross sections ?B3: ??Fallopian tube 2 fimbria ?B4: ??Fallopian tube 2 cross sections ??ajw 04/19/2023 10:37 AM EDT [facility] TISSUE SPECIMEN FROM PLACENTA / Unknown 04/12/2023 5:52 PM EDT 04/12/2023 5:52 PM EDT False Vocal Cords, Bilateral 04/12/2023 5:52 PM EDT 04/12/2023 5:52 PM EDT Vicente Zhang MD PATHOLOGY/CYTOLOGY O RDERABLES Performing Organization Address City/[facility] Co de Phone Number [facility] [place] [address] [facility] [place] [address] * Group B Streptococcus Screen (04/12/2023 2:06 PM EDT) GBS Screen Neg [facility] Vaginal/Rectal 04/12/2023 2: 06 PM EDT 04/12/2023 3:32 PM EDT Comment:Penicillin Allergy?- >Yes Narrative Resulting Agency Comment Spec In Lab Vicente Zhang MD MICROBIOLOGY - GENER AL ORDERABLES Performing Organization Address City/[facility]/[place] [address] * Group B Strep Culture Screen (04/12/2023 2:06 PM EDT) Pathologist [facility] Group B Streptococcus Culture No Group B Streptococci isolated [facility] Vaginal/Rectal 04/12/2023 2: 06 PM EDT 04/12/2023 3:32 PM EDT Comment:Penicillin Allergy?- >Yes Narrative Resulting Agency Comment Spec In Lab Mary Headley MD MICROBIOLOGY - GENE RAL ORDERABLES Performing Organization Address City/[facility]/[place] [address] * Type and Screen Validity (04/12/2023 12:00 PM EDT) Pathologist [facility] T&S only valid at [facility] Comment:This Type and Screen result is only valid at the [facility] Blood 04/12/2023 12:0 0 PM EDT 04/12/2023 12:15 PM EDT Narrative Resulting Agency Comment Spec In Lab Vicente Zhang MD BLOOD BANK LAB ORDER SHABNAM Performing Organization Address [facility] [place] [address] * ABORH Recheck Status (04/12/2023 12:00 PM EDT) Pathologist [facility] ABORH Type Recheck Completed [facility] Blood 04/12/2023 12:0 0 PM EDT 04/12/2023 12:15 PM EDT Narrative Resulting Agency Comment Spec In Lab Vicente Zhang MD BLOOD BANK LAB ORDER SHABNAM Performing Organization Address [facility]/[place] [address] * (ABNORMAL) Differential, Automated (04/12/2023 12:00 PM EDT) Neutrophil % 72.7 % [facility] Neutrophil Absolute 7.47(H) 1.70 - 6.10 x10(3)/mc L [facility] Lymph % 19.0 % [facility] Lymphocytes Abs 2.0 0.9 - 3.2 x10(3)/ L [facility] Monocyte % 6.3 % [facility] Monocyte Abs 0.6 0.3 - 0.9 x10(3)/ L [facility] Eos % 0.5 % [facility] Eosinophils Abs 0.0 0.0 - 0.4 x10(3)/[facility] Basophil % 0.4 % [facility] Baso Absolute 0.0 0.0 - 0.1 x10(3)/ L [facility] Immature Gran % 1.10 % [facility] Comment: Immature granulocytes(IG's)percentage and absolute count will include metamyelocytes, myelocytes, and promyelocytes. Blood smears from CBCs yielding IG's will be scanned manually for concordance. If this scan disagrees with the automated IG or if promyelocytes are noted, a manual differential will be performed. Immature Gran Absolute 0.11(H) 0.00 - 0.04 x10(3)/ L [facility] Blood 04/12/2023 12:0 0 PM EDT 04/12/2023 12:17 PM EDT Narrative Resulting Agency Comment Spec In Lab Vicente Zhang MD HEMATOLOGY ORDERABLE S [facility] [place] [address] * (ABNORMAL) Hemogram (04/12/2023 12:00 PM EDT) White Blood Cell 10.3(H) 4.0 - 9.5 x10(3)/ L [facility] Red Blood Cell 3.85(L) 4.00 - 5.21 x10(6)/[facility] Hemoglobin 11.0(L) 11.7 - 15.5 g/dL [facility] Hematocrit 33.0(L) 35.7 - 45.8 % [facility] Mean Cell Volume 85.7 82.6 - 94.4 fL [facility] Mean Cell Hemoglobin 28.6 27.1 - 32.0 pg [facility] Mean Cell Hemoglobin Concentration 33.3 31.7 - 35.0 g/dL [facility] Platelet 137(L) 145 - 357 x10(3)/mc L [facility] RDW Standard Deviation 42.0 37.0 - 46.0 fL [facility] RDW coefficient of variation 13.6 11.5 - 14.1 % [facility] Mean Platelet Volume 12.7 7.6 - 12.9 fL [facility] NRBC% auto 0.0 % [facility] NRBC Absolute 0.000 0.000 - 0.000 x10(3)/mc L [facility] Blood 04/12/2023 12:0 0 PM EDT 04/12/2023 12:17 PM EDT Narrative Resulting Agency Comment Spec In Lab Vicente Zhang MD HEMATOLOGY ORDERABLE S Performing Organization Address City/[facility] Co de Phone Number [facility] [place] [address] * Antibody screen (04/12/2023 12:00 PM EDT) Ab Screen Interp Negative [facility] Expires at 2359 on: 04/15/2023 [facility] Blood 04/12/2023 12:0 0 PM EDT 04/12/2023 12:15 PM EDT Narrative Resulting Agency Comment Spec In Lab Vicente Zhang MD BLOOD BANK LAB ORDER SHABNAM Performing Organization Address City/[facility]/ZIP Co de Phone Number [facility] [place] [address] * ABO/Rh Typing (04/12/2023 12:00 PM EDT) ABORH Type A Pos [facility] Blood 04/12/2023 12:0 0 PM EDT 04/12/2023 12:15 PM EDT Narrative Resulting Agency Comment Spec In Lab Vicente Zhang MD BLOOD BANK LAB ORDER SHABNAM Performing Organization Address City/[facility]/[place] [address] documented in this encounter Visit Diagnoses Diagnosis [...] Routine documented in this encounter Care Teams Paving Bed Maker Relationship Specialty Start Date End Date Analisa Martinez PA [address] [place] [address] PCP - General 11/30/22 documented as of this encounter
--- OUTSIDE RECORDS SUMMARY | 2024-08-14 12:11 | XMS_ITS | Encounter Summary ---
Author Organization [facility] Address [facility] [place] [address] Care Team Providers Care Hvac Commercial Salesperson Name Role Phone Analisa Martinez Primary Care Provider [phone] Encounter Details Date Type Department Care Team [...] filedocumented in this encounter Care Teams Hvac Commercial Salesperson Relationship Specialty Start Date End Date Analisa Martinez PA [address] [place] [address] PCP - General 11/30/22 documented as of this encounter
--- OUTSIDE RECORDS SUMMARY | 2024-08-14 12:11 | XMS_ITS | Encounter Summary ---
Author Organization On [facility] Address [facility] [place] [address] Care Team Providers Care Chemist Assistant Name Role Phone Analisa Martinez Primary Care Provider [phone] Encounter Details Date Type Department Care Team [...] continue to follow. Deanna Estrada RN IBCLC [facility] Services will continue to follow. documented in this encounter Plan of Treatment Not on file documented as of this encounter Visit Diagnoses Not on filedocumented in this encounter Care Teams Chemist Assistant Relationship Specialty Start Date End Date Analisa Martinez PA [address] [place] [address] PCP - General 11/30/22 documented as of this encounter
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
--- OUTSIDE RECORDS SUMMARY | 2024-08-14 12:12 | XMS_ITS | Encounter Summary ---
Author Organization [facility] Address [facility] [place] [address] Care Team Providers Care Nutritionalist Name Role Phone Analisa Martinez Primary Care Provider [phone] Encounter Details Date Type Department Care Team [...] on filedocumented in this encounter Care Teams Nutritionalist Relationship Specialty Start Date End Date Analisa [place] [address] PCP - General 11/30/22 documented as of this encounter
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
--- OUTSIDE RECORDS SUMMARY | 2024-08-14 12:12 | XMS_ITS | Encounter Summary ---
[place] [address] Care Team Providers Care Ict Analyst Name Role Phone Melody Koenig MD Primary Care Provider [phone] Encounter Details Date Type Department Care Team (Late st Contact Info) Description 11/26/2022 Telephone Obstetrics [place] [address] Macarena Priest RN Social History [...] 11/26/2022 1:02 PM EST Isabel Julian 15w0d [facility] pt Reason for call: pelvic pain [...] to the pain. She was seen at [facility] today and she is very disappointed in their care, they basically told me to take a Tylenol and suck it up - I am furious and will not be going back there. I stated I would forward this note to Dr Haas, the regional business manager MFM. I explained that Dr Haas [...] on filedocumented in this encounter Care Teams Ict Analyst Relationship Specialty Start Date End Date Melody Koenig MD [address] [place] [address] PCP - General Family Medicine 10/30/22 11/29/22 documented as of this encounter
--- OUTSIDE RECORDS SUMMARY | 2024-08-14 12:12 | XMS_ITS | Referral Summary ---
Author Organization [facility] Address [address] [place] [address] Care Team Providers Care Hand Glass Cutter Name Role Phone Joanna Alcaraz NP Primary Care Provider [phone] Social History Tobacco Use Types Packs/Day Years [...] C Antibody Negative Negative 10/30/2022 10:33 EST [facility] Blood VENOUS BLOOD / Unknown 10/29/2022 10:23 EST 10/29/2022 17:12 EST us Provider Outr Resulting Lab CHEMISTRY & BLOOD GA S ORDERABLES Final Result [facility] [address] [place] [address] from Last 3 Months or Most Recently Relevant to Health Maintenance Care Teams Hand Glass Cutter Relationship Specialty Start Date End Date Joanna Alcaraz NP [address] [place] [phone] (work) PCP - General 08/23/19
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
--- OUTSIDE RECORDS SUMMARY | 2024-08-14 12:12 | XMS_ITS | Encounter Summary ---
Author Organization [facility] Address [address] [place] [address] Care Team Providers Care Psych Arnp Name Role Phone Joanna Alcaraz NP Primary Care Provider [phone] Encounter Details Date Type Department Care Team (Late st Contact Info) Description 05/01/2022 Lab Requisition [facility] Pathology & Laboratory Medicine - [facility] [address] [place] [address] Outr Resulting Lab, Provider Social History Tobacco [...] MICROBIOLOGY - GENER AL ORDERABLES Final Result [facility] [address] [place] [address] * COVID-19 TESTING (04/30/2022 18:26 EDT) COVID-19 rt-PCR Result Negative Negative 05/02/2022 12:00 EDT [facility] Comment: This test has [...] performed using the thelma SARS-CoV-2 assay ([employer] on the Thelma 6800 System Performing Lab Thelma [address] [facility] Lab 05/02/2022 12:00 EDT [facility] Swab 04/30/2022 18:2 6 EDT 05/01/2022 17:42 EDT us Provider Outr Resulting Lab MICROBIOLOGY - GENER AL ORDERABLES Final Result [facility] [address] [place] [address] documented in this encounter Visit Diagnoses Not on filedocumented in this encounter Care Teams Psych Arnp Relationship Specialty Start Date End Date Joanna Alcaraz NP [address] [place] [phone] PCP - General 08/23/19 documented as of this encounter
--- OUTSIDE RECORDS SUMMARY | 2024-08-14 12:12 | XMS_ITS | Encounter Summary ---
[place] [address] Care Team Providers Care Surveillance Technician Name Role Phone Analisa Martinez Primary Care Provider [phone] Encounter Details Date Type Department Care Team (Late st Contact Info) Description 03/02/2023 Telephone Obstetrics [place] [address] Loida Hall RN Social History [...] Returned call to Isabel Julian [place] 30w[address]d [facility] patient H/O previous section Reports pains [...] would review her note with the covering [facility] provider and would get back to her if any additional advice. Patient instructed that if she has pain that lasts more than a few minutes, or is not relieved by rest, or if she has pain that is accompanied by vaginal bleeding, cramping and/or nausea/vomiting please let us know right away by calling [phone] (and that after hours provider can be reached by this number as well). Isabel verbalized understanding of and agreement with plan. documented in this encounter Plan of Treatment Not on file documented as of this encounter Visit Diagnoses Not on filedocumented in this encounter Care Teams Surveillance Technician Relationship Specialty Start Date End Date [place] [address] PCP - General 11/30/22 documented as of this encounter
--- OUTSIDE RECORDS SUMMARY | 2024-08-14 12:12 | XMS_ITS | Encounter Summary ---
Author Organization [facility] Address [address] [place] [address] Care Team Providers Care Rubber Press Operator Name Role Phone Joanna Alcaraz NP Primary Care Provider [phone] Encounter Details Date Type Department Care Team (Late st Contact Info) Description 10/31/2020 Lab Requisition [facility] Pathology & Laboratory Medicine - [facility] [address] [place] [address] Outr Resulting Lab, Provider Social History Tobacco [...] MICROBIOLOGY - GENER AL ORDERABLES Final Result [facility] [address] [place] [address] * COVID-19 TESTING (10/31/2020 16:45 EST) COVID-19 rt-PCR Result Negative Negative 11/01/2020 18:17 EST [facility] Comment: This test has not [...] developed and its performance characteristics determined by [facility]. It has not been cleared or approved [...] testing. This test is based on the [facility] COVID-19 Emergency Use Authorization (EUA) assay, with minor modification as defined by the FDA Performed on the AlloCureo 7 Flex RT-PCR System. Performing Lab [facility] Lab 11/01/2020 18:17 EST [facility] Swab 10/31/2020 16:4 5 EST 10/31/2020 21:01 EST us Provider Outr Resulting Lab MICROBIOLOGY - GENER AL ORDERABLES Final Result [facility] [address] [place] [address] documented in this encounter Visit Diagnoses Not on filedocumented in this encounter Care Teams Rubber Press Operator Relationship Specialty Start Date End Date Joanna Alcaraz NP [address] [place] [phone] PCP - General 08/23/19 documented as of this encounter
--- OUTSIDE RECORDS SUMMARY | 2024-08-14 12:12 | XMS_ITS | Encounter Summary ---
Author Organization [facility] [place] [address] Care Team Providers Care Horse Trekking Guide Name Role Phone Melody Koenig MD Primary Care Provider [phone] Encounter Details Date Type Department Care Team (Late st Contact Info) Description 11/26/2022 Orders Only Obstetrics [place] [address] Fide Haas MD [facility] [address] OBSTETRICS [place] [address] Back pain affecting in second trimester Social [...] EST Returned patient call. Had visit to [facility] for pain and is angry with [...] trimester documented in this encounter Care Teams Horse Trekking Guide Relationship Specialty Start Date End Date Melody Koenig MD [address] [place] [address] PCP - General Family Medicine 10/30/22 11/29/22 documented as of this encounter
--- OUTSIDE RECORDS SUMMARY | 2024-08-14 12:12 | XMS_ITS | Encounter Summary ---
Author Organization [facility] Address [facility] [place] [address] Care Team Providers Care Demonstrator Sales Name Role Phone Analisa Martinez Primary Care [...] on filedocumented in this encounter Care Teams Demonstrator Sales Relationship Specialty Start Date End Date Analisa [place] [address] PCP - General 11/30/22 documented as of this encounter
--- OUTSIDE RECORDS SUMMARY | 2024-08-14 12:12 | XMS_ITS | Encounter Summary ---
Author Organization [facility] [address] Care Team Providers Care On Site Construction Superintendent Name Role Phone Melody Koenig MD Primary Care Provider [phone] Reason for Visit * Reason Comments Follow-up Encounter Details Date Type Department Care Team (Late st Contact Info) Description 11/20/2022 10:30 AM EST Office Visit Obstetrics [place] [address] Casey Armendariz MD [facility] [address] OBSTETRICS [place] [address] , unspecified gestational age; Arthralgia, unspecified joint; [...] seen 3 days ago in ED of [facility] for pelvic joint pain and low abdominal/suprapubic [...] minutes was spent performing this follow up [facility] visit. Addendum: ELHAM and Rheumatoid Factor are [...] , unspecified gestational age TYPE AND SCREEN ([facility]) Routine 11/20/2022 12:30 PM EST , unspecified gestational age HC RHEUMATOID FACTOR Routine 11/20/2022 12:30 PM EST Arthralgia, unspecified joint HC DNA AB DS ([place]) Routine 11/20/2022 12:30 PM EST Arthralgia, unspecified joint COMPREHENSIVE METABOLIC PANEL Routine 11/20/2022 12:30 PM EST Arthralgia, unspecified joint documented in this encounter Results * Type and Screen Validity (11/20/2022 12:30 PM EST) T&S only valid at [facility] Comment:This Type and Screen result is only valid at the [facility] Blood 11/20/2022 12:3 0 PM EST 11/20/2022 12:40 PM EST Narrative Resulting Agency Comment Spec In Lab Casey Armendariz MD BLOOD BANK LAB ORDER [place] Performing Organization Address City/[facility]/ZIP Co de Phone Number [facility] [place] [address] * ABORH Recheck Status (11/20/2022 12:30 PM EST) ABORH Recheck Order Order Placed [facility] ABORH Type Recheck Not Performed [facility] Blood 11/20/2022 12:3 0 PM EST 11/20/2022 12:40 PM EST Narrative Resulting Agency Comment Spec In Lab Casey Armendariz MD BLOOD BANK LAB ORDER SHABNAM [facility] [place] [address] * Antibody screen (11/20/2022 12:30 PM EST) Pathologist [facility] Ab Screen Interp Negative [facility] Expires at 2359 on: 11/23/2022 [facility] Blood 11/20/2022 12:3 0 PM EST 11/20/2022 12:40 PM EST Narrative Resulting Agency Comment Spec In Lab Casey Armendariz MD BLOOD BANK LAB ORDER SHABNAM [facility] [place] [address] * ABO/Rh Typing (11/20/2022 12:30 PM EST) Pathologist [facility] ABORH Type A Pos [facility] Blood 11/20/2022 12:3 0 PM EST 11/20/2022 12:40 PM EST Narrative Resulting Agency Comment Spec In Lab Casey Armendariz MD BLOOD BANK LAB ORDER SHABNAM Performing Organization Address City/[facility]/ZIP Co de Phone Number [facility] [place] [address] * (ABNORMAL) Hemogram (11/20/2022 12:30 PM EST) Pathologist [facility] White Blood Cell 9.7(H) 4.0 - 9.5 x10(3)/mc L [facility] Red Blood Cell 4.37 4.00 - 5.21 x10(6)/mc L [facility] Hemoglobin 13.2 11.7 - 15.5 g/dL [facility] Hematocrit 38.6 35.7 - 45.8 % [facility] Mean Cell Volume 88.3 82.6 - 94.4 fL [facility] Mean Cell Hemoglobin 30.2 27.1 - 32.0 pg [facility] Mean Cell Hemoglobin Concentration 34.2 31.7 - 35.0 g/dL [facility] Platelet 141(L) 145 - 357 x10(3)/mc L [facility] RDW Standard Deviation 43.2 37.0 - 46.[address] [facility] RDW coefficient of variation 13.2 11.5 - 14.1 % [facility] Mean Platelet Volume 12.3 7.6 - 12.[address] [facility] NRBC% auto 0.0 % [facility] NRBC Absolute 0.000 0.000 - 0.000 x10(3)/mc L [facility] Blood 11/20/2022 12:3 0 PM EST 11/20/2022 12:37 PM EST Narrative Resulting Agency Comment Spec In Lab Casey Armendariz MD HEMATOLOGY ORDERABLE S [facility] [place] [address] * (ABNORMAL) Comprehensive metabolic panel (non-fasting) (11/20/2022 12:30 PM EST) Glucose 82 65 - 199 mg/dL [facility] Comment:Diabetes: >=200 mg/d L plus symptoms Blood Urea Nitrogen 5(L) 8 - 18 mg/dL [facility] Creatinine 0.50(L) 0.70 - 1.20 mg/dL [facility] Sodium 137 135 - 145 mmol/L [facility] Potassium 4.4 3.5 - 5.0 mmol/L [facility] Comment: Please note: ??Patients with WBC >100,000 may have falsely elevated Potassium levels. ??For accurate Potassium quantification in these patients send serum separator tube (gold top) for subsequent determinations. ??Contact the Clinical Chemistry Laboratory if there are any questions. Chloride 104 98 - 107 mmol/L [facility] Carbon Dioxide 23 22 - 31 mmol/L [facility] Anion Gap 10 5 - 15 mmol/L [facility] Calcium 9.5 8.5 - 10.5 mg/dL [facility] Protein, Total 7.0 6.1 - 8.0 g/dL [facility] Albumin 4.0 3.2 - 5.2 g/dL [facility] Aspartate Aminotransferase 13 0 - 30 unit/L [facility] Alanine Aminotransferase 13 0 - 30 unit/L [facility] Alkaline Phosphatase 51 35 - 105 unit/L [facility] Bilirubin, Total <0.2(L) 0.2 - 1.3 mg/dL [facility] Est Glomerular Filtration Rate 131 >=60 mL/min/1. 73 m?? [facility] Comment: This patient's estimated [...] Armendariz MD CHEMISTRY ORDERABLES Performing Organization Address [facility] Co de Phone Number [facility] [place] [address] * Rheumatoid factor, quant (11/20/2022 12:30 PM EST) Rheumatoid Factor <10 <=14 IU/mL [facility] Blood 11/20/2022 12:3 0 PM EST 11/20/2022 12:37 PM EST Narrative Resulting Agency Comment Spec In Lab Casey Armendariz MD CHEMISTRY ORDERABLES Performing Organization Address [facility] [place] [address] * ELHAM Antibody Screen (11/20/2022 12:30 PM EST) ELHAM Ab Screen Negative Negative [facility] Comment: This antinuclear antibody (ELHAM) screen is a qualitative test performed using a fluoroenzyme immunoassay on the GreenPocket 250 analyzer. This screen is designed to [...] performed by the Special Chemistry Laboratory at [facility]. This change in testing location is associated with a change is testing method and reference intervals. Please review the results of this test in association with the posted reference intervals. dsDNA Ab 0.6 <=15.0 IU/mL [facility] Comment: <10 negative 10-15 equivocal >15 positive This dsDNA antibody result was generated using a fluoroenzyme immunoassay on the GreenPocket 250 analyzer. This quantitative test is designed to detect IgG antibodies directed against double stranded DNA in human serum. The presence of antibodies that recognize dsDNA is a highly specific marker for systemic lupus erythematosus. Please note that as of 07/21/2022 that this testing is performed by the Special Chemistry Laboratory at [facility]. This change in testing location is associated with a change is testing method and reference intervals. Please review the results of this test in association with the posted reference intervals. Blood 11/20/2022 12:3 0 PM EST 11/20/2022 1:46 PM EST Narrative Resulting Agency Comment Spec In Lab Casey Armendariz MD LAB SEND OUT ORDERAB LES [facility] [place] [address] documented in this encounter Visit Diagnoses Diagnosis , unspecified gestational age Arthralgia, unspecified joint Uterine fibroid in Tumors of body of uterus, unspecified as to episode of care in documented in this encounter Care Teams On Site Construction Superintendent Relationship Specialty Start Date End Date Melody Koenig MD [address] [place] [address] PCP - General Family Medicine 10/30/22 11/29/22 documented as of this encounter
--- OUTSIDE RECORDS SUMMARY | 2024-08-14 12:12 | XMS_ITS | Encounter Summary ---
[place] [address] Care Team Providers Care Shaper Machine Hand Name Role Phone Analisa Martinez Primary Care Provider [phone] Encounter Details Date Type Department Care Team (Late st Contact Info) Description 02/15/2023 Telephone Obstetrics [place] [address] Loida Hall RN Social History [...] Returned call to Isabel Julian [place] 27w2d [facility] patient Isabel called with questions about gtt, wanted to know how long she be fasting before the test. Returned call and let Isabel know that it is not necessary to fast before the test. documented in this encounter Plan of Treatment Not on file documented as of this encounter Visit Diagnoses Not on filedocumented in this encounter Care Teams Shaper Machine Hand Relationship Specialty Start Date End Date Analisa Martinez PA [address] [place] [address] PCP - General 11/30/22 documented as of this encounter
--- OUTSIDE RECORDS SUMMARY | 2024-08-14 12:12 | XMS_ITS | Encounter Summary ---
[place] [address] Care Team Providers Care Facing End Trimmer Name Role Phone Analisa Martinez Primary Care Provider [phone] Encounter Details Date Type Department Care Team (Latest Contact Info) Description 02/19/2023 7:15 AM EDT Laboratory Appointment Lab [address] [place] [id number] Elevated glucose tolerance test Social History Tobacco [...] 3 Hour 95 65 - 139 mg/dL [facility] Blood 02/19/2023 10:2 9 AM EDT 02/19/2023 10:32 AM EDT Narrative Resulting Agency Comment Spec In Lab Nitza Murguia MD CHEMISTRY ORDERABLES Performing Organization Address City/[facility]/ZIP Co de Phone Number [facility] [place] [address] * Glucose 2 Hr Gestational (02/19/2023 9:35 AM EDT) Glucose Tolerance Gestational, 2 Hour 115 65 - 154 mg/dL [facility] Blood 02/19/2023 9:35 AM EDT 02/19/2023 9:40 AM EDT Narrative Resulting Agency Comment Spec In Lab Nitza Murguia MD CHEMISTRY ORDERABLES Performing Organization Address City/[facility]/ZIP Co de Phone Number [facility] [place] [address] * Glucose 1 Hr Gestational (02/19/2023 8:33 AM EDT) Gluc 1 Hr Gestational 160 65 - 179 mg/dL [facility] Blood 02/19/2023 8:33 AM EDT 02/19/2023 8:37 AM EDT Narrative Resulting Agency Comment Spec In Lab Nitza Murguia MD CHEMISTRY ORDERABLES Performing Organization Address City/[facility]/ZIP Co de Phone Number [facility] [place] [address] * Oral Glucose Dose Gestational (02/19/2023 7:30 AM EDT) Oral Glucose Dose 100 gm [facility] Blood 02/19/2023 7:30 AM EDT 02/19/2023 7:41 AM EDT Nitza Murguia MD CHEMISTRY ORDERABLES Performing Organization Address City/[facility] Co de Phone Number [facility] [place] [address] * Glucose Fasting Gestational (02/19/2023 7:30 AM EDT) Glucose Tolerance Gestational, Fasting 83 65 - 94 mg/dL [facility] Comment: Diagnosis of gestational diabetes mellitus [...] Organization Address [facility] Co de Phone Number [facility] [place] [address] documented in this encounter Visit Diagnoses Diagnosis Elevated glucose tolerance test Impaired glucose tolerance test documented in this encounter Care Teams Facing End Trimmer Relationship Specialty Start Date End Date Analisa Martinez PA [address] [place] [address] PCP - General 11/30/22 documented as of this encounter
--- OUTSIDE RECORDS SUMMARY | 2024-08-14 12:12 | XMS_ITS | Encounter Summary ---
Author Organization [facility] Address [address] [place] [address] Care Team Providers Care Field Mechanic/Site Lead Name Role Phone Joanna Alcaraz NP Primary Care Provider + [phone] Encounter Details Date Type Department Care Team (Late st Contact Info) Description 06/29/2022 Lab Requisition [facility] Pathology & Laboratory Medicine - [facility] [address] [place] [address] Outr Resulting Lab, Provider Social History Tobacco [...] MICROBIOLOGY - GENER AL ORDERABLES Final Result [facility] [address] [place] [address] * COVID-19 TESTING (06/28/2022 21:16 EDT) COVID-19 rt-PCR Result Negative Negative 06/30/2022 13:47 EDT [facility] Comment: This test [...] performed using the thelma SARS-CoV-2 assay ([employer] on the Thelma 6800 System Performing Lab Thelma [address] [facility] Lab 06/30/2022 13:47 EDT [facility] Swab 06/28/2022 21:1 6 EDT 06/29/2022 17:35 EDT us Provider Outr Resulting Lab MICROBIOLOGY - GENER AL ORDERABLES Final Result [facility] [address] [place] [address] documented in this encounter Visit Diagnoses Not on filedocumented in this encounter Care Teams Field Mechanic/Site Lead Relationship Specialty Start Date End Date Joanna Alcaraz NP [address] [place] [phone] PCP - General 08/23/19 documented as of this encounter
--- OUTSIDE RECORDS SUMMARY | 2024-08-14 12:12 | XMS_ITS | Encounter Summary ---
Author Organization [facility] Address [address] [place] [address] Care Team Providers Care Radar Tester Name Role Phone Nolberto Tranmeng Song RPA-C Primary Care Provider [phone] Encounter Details Date Type Department Care Team (Late st Contact Info) Description 05/15/2014 Results Only [facility] Laboratory Services - [facility] ([facility]) [address] [place], [place] [id number] Deb Pan MD [address] [place] [address] Social History Tobacco Use Types Packs/Day Years [...] ORDER SHABNAM Final Result Performing Organization Address [facility] Co de Phone Number [facility] [address] [place] [address] * QUAD MARKERS (05/14/2014 12:10 EDT) AFP/QUAD Sample Sample received in the lab. [facility] 05/14/2014 12:1 0 EDT 05/15/2014 13:39 EDT us Deb Pan MD CHEMISTRY & BLOOD GAS ORDER SHABNAM Final Result Performing Organization Address [facility] de Phone Number [facility] [address] [place] [address] documented in this encounter Visit Diagnoses Not on filedocumented in this encounter Care Teams Radar Tester Relationship Specialty Start Date End Date Noris Tran RPA-C [address] [place] [address] PCP - General 03/06/13 08/22/19 documented as of this encounter
--- OUTSIDE RECORDS SUMMARY | 2024-08-14 12:12 | XMS_ITS | Encounter Summary ---
Author Organization [facility] Address [facility] [place] [address] Care Team Providers Care Welt Rougher Name Role Phone Analisa Martinez Primary Care Provider [phone] Encounter Details Date Type Department Care Team (Late st Contact Info) Description 01/17/2023 Telephone Obstetrics [place] [address] Staci Jay MD [facility] OBSTETRICS [place] [address] Social History Tobacco Use Types Packs/Day Years [...] - 01/17/2023 7:59 PM EDT Telephone Encounter Isbael Julian is a 27 yo female at [...] on filedocumented in this encounter Care Teams Welt Rougher Relationship Specialty Start Date End Date Analisa Martinez PA [address] [place] [address] PCP - General 11/30/22 documented as of this encounter
--- OUTSIDE RECORDS SUMMARY | 2024-08-14 12:12 | XMS_ITS | Encounter Summary ---
Author Organization [facility] Address [facility] [place] [address] Care Team Providers Care Front Desk Lead Name Role Phone Analisa Martinez Primary Care Provider [phone] Encounter Details Date Type Department Care Team [...] on filedocumented in this encounter Care Teams Front Desk Lead Relationship Specialty Start Date End Date Analisa [place] [address] PCP - General 11/30/22 documented as of this encounter
--- OUTSIDE RECORDS SUMMARY | 2024-08-14 12:12 | XMS_ITS | Encounter Summary ---
Author Organization [facility] Address [place] [address] Care Team Providers Care Welder Apprentice Combination Name Role Phone Analisa Martinez Primary Care Provider [phone] Encounter Details Date Type Department Care Team [...] on filedocumented in this encounter Care Teams Welder Apprentice Combination Relationship Specialty Start Date End Date Analisa [place] [address] PCP - General 11/30/22 documented as of this encounter
--- OUTSIDE RECORDS SUMMARY | 2024-08-14 12:12 | XMS_ITS | Encounter Summary ---
Author Organization [facility] Address [facility] [place] [address] Care Team Providers Care Stoneworker Name Role Phone Analisa Martinez Primary Care Provider Reason for Visit * Reason Comments Routine Visit Encounter Details Date Type Department Care Team (Late st Contact Info) Description 03/22/2023 4:00 PM EDT Routine Obstetrics [place] [address] Nitza Murguia MD [facility] [address] OBSTET[place]ICS [place] [address] GA: 33w2d Social History Tobacco Use Types [...] disorders documented in this encounter Care Teams Stoneworker Relationship Specialty Start Date End Date Analisa [place] [address] PCP - General 11/30/22 documented as of this encounter
--- OUTSIDE RECORDS SUMMARY | 2024-08-14 12:12 | XMS_ITS | Encounter Summary ---
Author Organization [facility] Address [address] [place] [address] Care Team Providers Care Lining Scrubber Name Role Phone Noris Tran Duncan CANTOR-Ron Primary Care Provider [phone] Encounter Details Date Type Department Care Team (Late st Contact Info) Description 12/22/2018 Historical Results Only [facility] [address] [place] [id number] Clarissa Julian MD [address] [place] [address] Social History Tobacco Use Types [...] DESCRIPTION - PMC SOURCE 12/25/2018 11:38 EDT [facility] Comment:Nasopharynx ARNALDO RESULTS/ORGANISM ID - PMC ARNALDO Results 12/25/2018 11:38 EDT [facility] Comment:NO GROUP A BETA STRE PTOCOCCI ISOLATED ARNALDO STATUS/SUSCEPTIB ILITY - PMC FINAL 12/25/2018 11:38 EDT [facility] Comment: Final 12/25/2018 Test performed [place] [address] If you have questions about this culture, please contact [facility] Micro Department at [phone]. 12/22/2018 23:1 5 EDT 12/22/2018 23:26 EDT us Clarissa Julian MD MICROBIOLOGY - GENERAL ORD ERABLES Final Result [facility] * RAPID STREP GRP A; CULTURE IF NEG - PMC (12/22/2018 23:15 EDT) GRP A STREP AG RESULTS: - PMC NEGATIVE-CULT URE WILL BE PERFORMED 12/22/2018 23:29 EDT [facility] 12/22/2018 23:1 5 EDT 12/22/2018 23:26 EDT Comment:SWAB us Clarissa Julian MD MICROBIOLOGY - GENERAL ORD ERABLES Final Result [facility] documented in this encounter Visit Diagnoses Not on filedocumented in this encounter Care Teams Lining Scrubber Relationship Specialty Start Date End Date Noris Tran, RPA-C [address] [place] [address] PCP - General 03/06/13 08/22/19 documented as of this encounter
--- OUTSIDE RECORDS SUMMARY | 2024-08-14 12:12 | XMS_ITS | Clinical Summary ---
Author Organization [facility] Address [address] [place] [address] Care Team Providers Care Plasma Center Nurse Name Role Phone Joanna Alcaraz NP Primary Care Provider [phone] Social History Tobacco Use Types Packs/Day Years [...] 3-dose series) 08/22 COVID-19 Vaccine ( season) 2024 Hepatitis C Screen Completed 10/29/2022 Procedures Procedure Name Priority Date/Time Associated Diagnosis Comments HEPATITIS C AB W REFLEX TO HCV RNA BY PCR Today 10/29/2022 10:23 EST from Last 3 Months or Most Recently Relevant to Health Maintenance Results * HEPATITIS C AB W REFLEX TO HCV RNA BY PCR (10/29/2022 10:23 EST) Hep C Antibody Negative Negative 10/30/2022 10:33 EST [facility] Blood VENOUS BLOOD / Unknown 10/29/2022 10:23 EST 10/29/2022 17:12 EST us Provider Outr Resulting Lab CHEMISTRY & BLOOD GA S ORDERABLES Final Result [facility] [address] [place] [address] from Last 3 Months or Most Recently Relevant to Health Maintenance Care Teams Plasma Center Nurse Relationship Specialty Start Date End Date Joanna Alcaraz NP [address] [place] [phone] PCP - General 08/23/19
--- OUTSIDE RECORDS SUMMARY | 2024-08-14 12:12 | XMS_ITS | Encounter Summary ---
Author Organization [facility] Address [facility]ood [facility] [place] [address] Care Team Providers Care Heater Operator Name Role Phone Analisa Maritnez Primary Care Provider [phone] Encounter Details Date Type Department Care Team (Late st Contact Info) Description 03/18/2023 11:59 PM EDT Anesthesia [place] [address] Tami Jaramillo MD [facility] [place] [address] Anesthesia Record Procedure Summary Procedure Name Responsible [...] on filedocumented in this encounter Care Teams Heater Operator Relationship Specialty Start Date End Date Analisa Martinez PA [address] [place] [address] PCP - General 11/30/22 documented as of this encounter
--- OUTSIDE RECORDS SUMMARY | 2024-08-14 12:12 | XMS_ITS | Encounter Summary ---
Author Organization [facility] Address [address] [place] [address] Care Team Providers Care Enamel Dipper Name Role Phone Noris Tran Primary Care Provider Encounter Details Date Type Department Care Team (Latest Contact Info) Description 05/14/2014 18:48 EDT - 05/14/2014 18:49 EDT Hospital Encounter [address] [address] Deb Pan MD [address] [address] Discharge Disposition: Home or Self Care Social [...] on filedocumented in this encounter Care Teams Enamel Dipper Relationship Specialty Start Date End Date Noris Tran RPA-C [address] [place] [address] PCP - General 03/06/13 08/22/19 documented as of this encounter
--- OUTSIDE RECORDS SUMMARY | 2024-08-14 12:12 | XMS_ITS | Encounter Summary ---
Author Organization [facility] Address [address] [place] [address] Care Team Providers Care Mold Clamper Name Role Phone Joanna Alcaraz NP Primary Care Provider + [phone] Encounter Details Date Type Department Care Team (Late st Contact Info) Description 10/29/2022 Lab Requisition [facility] Pathology & Laboratory Medicine - [facility] [address] [place] [address] Outr Resulting Lab, Provider Social History Tobacco [...] Ab Positive See Note 10/30/2022 10:13 EST [facility] Comment:Presence of detectab le Varicella Zoster virus IgG antibodies. Blood VENOUS BLOOD / Unknown 10/29/2022 10:23 EST 10/29/2022 17:12 EST us Provider Outr Resulting Lab IMMUNOLOGY AND SEROL OGY ORDERABLES Final Result Performing Organization Address City/[facility]/ZIP Co de Phone Number [facility] [address] [place] [address] * RUBELLA IGG ANTIBODY (10/29/2022 10:23 EST) Rubella IgG Ab Positive See Note 10/30/2022 10:14 EST [facility] Comment:Positive for IgG ant ibodies to Rubella virus. Blood VENOUS BLOOD / Unknown 10/29/2022 10:23 EST 10/29/2022 17:12 EST us Provider Outr Resulting Lab CHEMISTRY & BLOOD GA S ORDERABLES Final Result Performing Organization Address [facility] Co de Phone Number [facility] [address] [place] [address] documented in this encounter Visit Diagnoses Not on filedocumented in this encounter Care Teams Mold Clamper Relationship Specialty Start Date End Date Joanna Alcaraz NP [address] [place] [phone] PCP - General 08/23/19 documented as of this encounter
--- OUTSIDE RECORDS SUMMARY | 2024-08-14 12:12 | XMS_ITS | Encounter Summary ---
Author Organization [facility] Address [facility] [place] [address] Care Team Providers Care Cotton Header Name Role Phone Analisa Martinez Primary Care Provider [phone] Reason for Visit * Reason Comments Routine Visit Encounter Details Date Type Department Care Team (Late st Contact Info) Description 01/21/2023 1:00 PM EDT Routine Obstetrics [place] [address] Nitza Murguia MD [facility] DR OBSTETRICS [place] [address] GA: 24w5d Social History Tobacco Use Types [...] (if applicable) along with the Guide to [place] was given to the patient. The materials [...] 140 Will do GCT and hemogram at [facility] CS scheduled 36 6/7 Will need steroids ERB documented in this encounter Plan of Treatment Not on file documented as of this encounter Visit Diagnoses Diagnosis , unspecified gestational age Dehiscence of old uterine scar with extension before onset of labor, delivered documented in this encounter Care Teams Cotton Header Relationship Specialty Start Date End Date Analisa [place] [address] PCP - General 11/30/22 documented as of this encounter
--- OUTSIDE RECORDS SUMMARY | 2024-08-14 12:12 | XMS_ITS | Encounter Summary ---
Author Organization [facility] Address [address] [place] [address] Care Team Providers Care Software Test Developer Name Role Phone Joanna Alcaraz NP Primary Care Provider + [phone] Encounter Details Date Type Department Care Team (Late st Contact Info) Description 10/29/2022 Lab Requisition [facility] Pathology & Laboratory Medicine - [facility] [address] [place], [place] [address] Outr Resulting Lab, Provider Social History Tobacco [...] 4th Generation Negative Negative 10/30/2022 10:21 EST [facility] Comment:If acute HIV-1 infec tion is suspected in a high risk patient, submit plasma specimen for HIV-1 RNA quantitation test. Blood VENOUS BLOOD / Unknown 10/29/2022 10:23 EST 10/29/2022 17:13 EST Narrative [facility] - 10/30/2022 10:21 EST Fourth Generation assay performed on the Siemens Centaur XPT. us Provider Outr Resulting Lab IMMUNOLOGY AND SEROL OGY ORDERABLES Final Result [facility] [address] [place] [address] documented in this encounter Visit Diagnoses Not on filedocumented in this encounter Care Teams Software Test Developer Relationship Specialty Start Date End Date Joanna Alcaraz NP [address] [place] [phone] PCP - General 08/23/19 documented as of this encounter
--- OUTSIDE RECORDS SUMMARY | 2024-08-14 12:12 | XMS_ITS | Encounter Summary ---
Author Organization [facility] [address] Care Team Providers Care Desk Lieutenant Name Role Phone Melody Koenig MD Primary Care Provider [phone] Encounter Details Date Type Department Care Team [...] on filedocumented in this encounter Care Teams Desk Lieutenant Relationship Specialty Start Date End Date Melody Koenig MD [address] [place] [address] PCP - General Family Medicine 10/30/22 11/29/22 documented as of this encounter
--- OUTSIDE RECORDS SUMMARY | 2024-08-14 12:12 | XMS_ITS | Encounter Summary ---
Author Organization [facility] Address [address] [place] [address] Care Team Providers Care Video Games Mechanic Name Role Phone Lissa Joanna Seals NP Primary Care Provider + [phone] Encounter Details Date Type Department Care Team (Latest Contact Info) Description 11/15/2020 Lab Requisition [facility] Pathology & Laboratory Medicine - [facility] [address] [place] [address] Melody Koenig MD [address] [place] [phone] Encounter for general adult medical examination without [...] Imaging System with Manual Evaluation 11/22/2020 14:16 [facility] Specimen Adequacy Satisfactory for Evaluation - transformation zone component absent 11/22/2020 14:16 [facility] General Categorization Negative for intraepithelial lesion or malignancy 11/22/2020 14:16 [facility] Attestation . 11/22/2020 14:16 [facility] at 1416 Clinical History See below 11/22/19 14:16 [facility] Performing Lab [facility] 11/22/2020 14:16 [facility] Scanned Images 11/22/2020 14:16 [facility] Papanicolaou smear specimen (specimen) CERVIX UTERI STRUCTURE / Unknown 11/15/2020 11:10 EST 11/18/2020 12:23 EST Melody Koenig MD PATHOLOGY ORDERABLES Final Res ult [facility] [address] [place] [address] * CHLAMYDIA/N. GONORRHOEAE AMPLIFIED RNA, THINPREP (11/15/2020 11:10 EST) Neisseria gonorrhoeae Result Negative Negative 11/18/2020 15:23 EST [facility] Chlamydia trachomatis Result Negative Negative 11/18/2020 15:23 EST [facility] Papanicolaou smear specimen (specimen) CERVIX UTERI STRUCTURE / Unknown 11/15/2020 11:10 EST 11/18/2020 8:53 EST Melody Koenig MD MICROBIOLOGY - GENERAL ORDERAB LES Final Result [facility] [address] [place] [address] documented in this encounter Visit Diagnoses Diagnosis Encounter for general adult medical examination without abnormal findings Unspecified general medical examination Encounter for screening for malignant neoplasm of cervix Screening for malignant neoplasm of the cervix Encounter for gynecological examination (general) (routine) without abnormal findings documented in this encounter Care Teams Video Games Mechanic Relationship Specialty Start Date End Date Joanna Alcaraz NP [address] [place] [phone] PCP - General 08/23/19 documented as of this encounter
--- OUTSIDE RECORDS SUMMARY | 2024-08-14 12:12 | XMS_ITS | Encounter Summary ---
Author Organization [facility] Address [address] [place] [address] Care Team Providers Care Service Observer Chief Name Role Phone Noris Tran Duncan WILKERSON Primary Care Provider Encounter Details Date Type Department Care Team (Late st Contact Info) Description 02/01/2017 Results Only Imaging [facility] Family Medicine - [address] [address] Analisa Elkins CNM [address] [place] [address] Social History Tobacco Use Types Packs/Day Years [...] Procedure Name Priority Date/Time Associated Diagnosis Comments [facility] DETAILED 02/01/2017 15:41 EDT documented in this encounter Results * [facility] DETAILED (02/01/2017 15:41 EDT) Anatomical Region Laterality [...] ?2,127 g 17% Lazcano Calculated by: Hadlock ([id number]) EFW (lb) ?? 4 lb EFW (oz) ?? 11 oz Cephalic index 0.79 ?34% Nicolaides HC / AC ?1.04 FL / BPD ?? 0.82 FL / AC ?0.24 MVP ?5.3 cm AMILCAR ?14.9 cm FHR ?148 bpm Head / Face / Neck Events Traffic Controller 3.9 mm Extremities / Bony Struc Radius [...] normal IVC: ?? normal 3-vessel view: normal 1-dqrqtl-gukocpr view: normal Rt lung: ?? normal Lt [...] habitus and by advanced gestational age. Impression 15382 Obstetrical ultrasound with and maternal evaluation, including [...] There is trunk and extremity movement noted. 30749 Umbilical artery Doppler study Doppler waveforms of [...] 2,127 g 17% Lazcano Calculated by: Hadlock ([id number]-BM-FL) EFW (lb) 4 lb EFW (oz) 11 oz Cephalic index 0.79 34% Nicolaides HC / AC 1.04 FL / BPD 0.82 FL / AC 0.24 MVP 5.3 cm AMILCAR 14.9 cm FHR 148 bpm Head / Face / Neck Events Traffic Controller 3.9 mm Extremities / Bony Struc Radius [...] SVC: normal IVC: normal 3-vessel view: normal 7-yvbnyd-mweqkbw view: normal Rt lung: normal Lt lung: [...] habitus and by advanced gestational age. Impression 32609 Obstetrical ultrasound with and maternal evaluation, including [...] There is trunk and [place] movement [place]. 67[address] Umbilical artery Doppler study Doppler waveforms of the umbilical artery are normal. Given the EFW appears > 10%, the biometry is symmetric, the fluid and Dopplers are normal, there is no evidence of poor growth or placental insufficiency at this time. Follow-up Follow-up as clinically indicated. [facility] ORDER[facility] Final Resu lt documented in this encounter Visit Diagnoses Not on filedocumented in this encounter Care Teams Service Observer Chief Relationship Specialty Start Date End Date Noris Tran RPA-C [address] [place] [address] PCP - General 03/06/13 08/22/19 documented as of this encounter
--- OUTSIDE RECORDS SUMMARY | 2024-08-14 12:12 | XMS_ITS | Encounter Summary ---
Author Organization [facility] Located Within [facility] [place] [address] Care Team Providers Care Dairy Lab Technician Name Role Phone Analisa Martinez Primary Care Provider [phone] Reason for Visit * Auth/Cert (Routine) Specialty Diagnoses / Procedures Referred By Contac t Referred To Contact Diagnoses prrior with window Procedures PRO DELIVERY ONLY ER OBSVO Sujata Prater MD [facility] OBSTETRICS [place] [address] [facility] Referral ID Status Reason Start Date Expiration Date Visits Re quested Visits Authorized [id number] 1 1 Encounter Details Date Type Department Care Team (Latest Contact Info) Description 03/18/2023 12:01 AM EDT - 03/18/2023 10:57 AM EDT Hospital [place] [address] Samuel Barron MD [facility] OBSTETRICS [place] [address] Discharge Disposition: Home Social History Tobacco Use [...] Isabel Julian Patient Age: 27 y.o. Language: Greenlandic Race: White Ethnicity: Not nor Admit date: 03/18/2023 Discharge date and time: 03/18/2023 Attending Physician: Dr. Samuel Barron Discharge Physician: Dr. Nitza Murguia Follow-up Recommendations for Providers: - Betamethasone #2 to be administered 03/19 at [facility] - Next visit with Dr. Murguia 03/22/23 Inpatient Provider Contact Information: [facility] Maternal- Medicine, Care Provider: [facility] Referring Provider if applicable: N/A [...] uterine rupture, she called and came to [facility] (lives ~1 hour away). Here she continues [...] to get second dose of Betamethasone at [facility]. [employer] Received if applicable: None Date [...] as: Protonix Refills: 0 vitamin 27 & repcdfo-wxuo-CC 60 mg iron-1 mg Tablet Take 1 tablet by mouth daily. 1 tablet Refills: 0 Smoking Status at Discharge: Social History Tobacco Use Smoking Status Every Day Packs/day: 0.50 Types: Cigarettes Smokeless Tobacco Never Tobacco Comments Cut back from 2 packs Instructions Given to Patient at Discharge: There are no outpatient Patient Instructions on file for this admission. General Instructions [facility] to contact OB doctor [facility] [place] [address] to contact family doctor Following your visit to [facility] Triage ??N?DL?TL?? Reason for Visit: [...] a vaginal exam in your doctor's or certified midwife's office you should not bleed as much [...] dehydration Keep your regularly scheduled doctor or certified midwife appointment NEW MEDICATIONS: SPECIAL INSTRUCTIONS/FOLLOW-UP CARE: Future Appointments and Orders Future Appointments and Orders Future Appointments Provider Department Dept Phone 03/22/2023 4:00 PM Nitza Murguia MD Obstetrics and Gynecology at [facility] Arrive at: [employer] [employer] 04/07/2023 4:00 PM Casey Armendariz MD Obstetrics and Gynecology at [facility] Arrive at: [facility] [place] [phone] Discharge References/Attachments None documented in this encounter Discharge Instructions * Discharge Instructions* Tejal Miles RN - 03/18/2023 10:15 AM EDT [facility] Birthtram Ramírez to contact OB doctor [facility] [address] to contact certified midwife CONCEPCIÓN Degroot to contact family doctor [facility] Triage ??N?DL?TL?? Reason for Visit: Provider: GESTATION - Less Than 37 Weeks Call your provider if: You are feeling any cramping sensations in your abdomen less than [address] [place] Contractions usually are irregular may get less [...] a vaginal exam in your doctor's or certified midwife's office you should not bleed as much [...] dehydration Keep your regularly scheduled doctor or certified midwife appointment NEW MEDICATIONS: SPECIAL INSTRUCTIONS/FOLLOW-UP CARE: documented [...] by mouth daily. 05/24/2023 vitamin 27 & wbmbbey-xmwd-WH 60 mg iron-1 mg Tablet Take 1 [...] EDT Obstetrical Antepartum Progress Note ID: Isabel Julina is a 27 y.o. at 32w5d admitted [...] plans to get BMZ #2 tomorrow at [facility], confirmed by Dr. Prater - 36w [...] discharge today Second dose of betamethasone locally [facility] planned 36-37 weeks Nitza Murguia [...] uterine rupture, she called and came to [facility] (lives ~1 hour away). Here she continues [...] mg by mouth daily. vitamin 27 & nzmtebq-gbvs-ED 60 mg iron-1 mg Tablet Take 1 [...] 130, Variability: moderate, Accels: yes, Decels: none, [place]: q2-3 Category: I Record Review Labs Lab [...] transportation insecurity, Fide Mc is current ride [phone] -Consents obtained: CS with BS, federal consent 11/30/22, opioids - Hemorrhage Risk: High This patient was seen and discussed with Dr. Barron, Attending TUMBLER DYEING MACHINE OPERATOR. Lyric Garber, 03/18/2023 Associated attestation - Samuel [...] 03/18/2023 10:30 AM EDT OFFICE OF CARE MANAGEMENT/accounts collector Isabel Julian is a 27 y.o. at 32w5d weeks gestation. She has been admitted secondary to threatened labor in the setting of 1.2mm lower uterine segment with Hx x2. Per conversation with [employer], she will be meeting with patient to offer support and will complete Initial Assessment for patient. RNCM will remain available throughout patient's admission to assist with any discharge planning needs. Charlotte Chatterjee RN Case Manager [facility] and covering for Pedi/PICU/ICN [phone] Pager [phone] * Consult Note - Jose Mcdonald MD [...] 32 weeks gestation and admitted to the [facility] due to labor in setting [...] EDT) Glucose, Urine Dipstick Negative Negative mg/dL [facility] Protein, Urine Dipstick Negative Negative mg/dL [facility] Bilirubin, Urine Dipstick Negative Negative mg/dL [facility] Comment: Clinical correlation required for positive Urine Bilirubin results as false positive may occur with some drugs and drug related products. If a false positive is suspected a serum total bilirubin should be considered if clinically indicated. Urobilinogen, Urine Dipstick Normal Normal mg/dL [facility] pH, Urn (dipstick) 7.0 5.0 - 8.0 [facility] Blood, Urine Dipstick Negative Negative mg/dL [facility] Ketone, Urine Dipstick 15(A) Negative mg/dL [facility] Nitrite, Urine Dipstick Negative Negative [facility] Leukocytes, Urine Dipstick Negative Negative mcL [facility] Appearance, Urine Dipstick Clear Clear [facility] Specific [place] Urine Automated 1.008 1.005 - 1.030 [facility] Color, Urine Dipstick Yellow Yellow [facility] Reflex to Culture No [facility] Clean Catch Urine 03/18/2023 2:35 AM EDT 03/18/2023 2:45 AM EDT Narrative Resulting Agency Comment Spec In Lab Samuel Barron MD URINE ORDERABLES Performing Organization Address [facility] Co de Phone Number [facility] [place] [address] * Type and Screen Validity (03/18/2023 1:50 AM EDT) T&S only valid at [facility] Comment:This Type and Screen result is only valid at the [facility] Blood 03/18/2023 1:50 AM EDT 03/18/2023 2:06 AM EDT Narrative Resulting Agency Comment Spec In Lab Lyric Garber DO BLOOD BANK LAB ORDER SHABNAM Performing Organization Address City/[facility]/ZIP [place] [address] * ABORH Recheck Status (03/18/2023 1:50 AM EDT) ABORH Type Recheck Completed [facility] Blood 03/18/2023 1:50 AM EDT 03/18/2023 2:06 AM EDT Narrative Resulting Agency Comment Spec In Lab Lyric Garber DO BLOOD BANK [place] [address] * (ABNORMAL) Differential, Automated (03/18/2023 1:50 AM EDT) Neutrophil % 65.0 % [facility] Neutrophil Absolute 7.31(H) 1.70 - 6.10 x10(3)/mc L [facility] Lymph % 24.9 % [facility] Lymphocytes Abs 2.8 0.9 - 3.2 x10(3)/mc L [facility] Monocyte % 7.6 % [facility] Monocyte Abs 0.9 0.3 - 0.9 x10(3)/mc L [facility] Eos % 0.6 % [facility] Eosinophils Abs 0.1 0.0 - 0.4 x10(3)/mc L [facility] Basophil % 0.4 % [facility] Baso Absolute 0.0 0.0 - 0.1 x10(3)/mc L [facility] Immature Gran % 1.50 % [facility] Comment: Immature granulocytes(IG's)percentage and absolute count will include metamyelocytes, myelocytes, and promyelocytes. Blood smears from CBCs yielding IG's will be scanned manually for concordance. If this scan disagrees with the automated IG or if promyelocytes are noted, a manual differential will be performed. Immature Gran Absolute 0.17(H) 0.00 - 0.04 x10(3)/mc L [facility] Blood 03/18/2023 1:50 AM EDT 03/18/2023 2:10 AM EDT Narrative Resulting Agency Comment Spec In Lab Lyric Garber DO HEMATOLOGY ORDERABLE S [facility] [place] [address] * (ABNORMAL) Hemogram (03/18/2023 1:50 AM EDT) White Blood Cell 11.3(H) 4.0 - 9.5 x10(3)/mc L [facility] Red Blood Cell 3.77(L) 4.00 - 5.21 x10(6)/mc L [facility] Hemoglobin 11.3(L) 11.7 - 15.5 g/dL [facility] Hematocrit 32.9(L) 35.7 - 45.8 % [facility] Mean Cell Volume 87.3 82.6 - 94.4 fL [facility] Mean Cell Hemoglobin 30.0 27.1 - 32.0 pg [facility] Mean Cell Hemoglobin Concentration 34.3 31.7 - 35.0 g/dL [facility] Platelet 130(L) 145 - 357 x10(3)/mc L [facility] RDW Standard Deviation 40.3 37.0 - 46.0 fL [facility] RDW coefficient of variation 12.8 11.5 - 14.1 % [facility] Mean Platelet Volume 13.0(H) 7.6 - 12.9 fL [facility] NRBC% auto 0.0 % [facility] NRBC Absolute 0.000 0.000 - 0.000 x10(3)/ L [facility] Blood 03/18/2023 1:50 AM EDT 03/18/2023 2:10 AM EDT Narrative Resulting Agency Comment Spec In Lab Lyric Garber DO HEMATOLOGY ORDERABLE S [facility] [place] [address] * Antibody screen (03/18/2023 1:50 AM EDT) Ab Screen Interp Negative [facility] Expires at 2359 on: 03/21/2023 [facility] Blood 03/18/2023 1:50 AM EDT 03/18/2023 2:06 AM EDT Narrative Resulting Agency Comment Spec In Lab Lyric Garber DO BLOOD BANK LAB ORDER SHABNAM [facility] [place] [address] * ABO/Rh Typing (03/18/2023 1:50 AM EDT) ABORH Type A Pos [facility] Blood 03/18/2023 1:50 AM EDT 03/18/2023 2:06 AM EDT Narrative Resulting Agency Comment Spec In Lab Lyric Garber DO BLOOD BANK LAB ORDER SHABNAM Performing Organization Address City/[facility] [place] [address] documented in this encounter Visit Diagnoses Diagnosis [...] 1 dose, On Wed03/18/23 at 0145 0141 ([facility] Bag - Prov ider: Mary Malik RN) [...] Routine documented in this encounter Care Teams Dairy Lab Technician Relationship Specialty Start Date End Date Analisa Martinez PA [address] [place] [address] PCP - General 11/30/22 documented as of this encounter
--- OUTSIDE RECORDS SUMMARY | 2024-08-14 12:12 | XMS_ITS | Encounter Summary ---
Author Organization [facility] Address [facility] [place] [address] Care Team Providers Care Wafer Batter Mixer Name Role Phone Analisa Martinez Primary Care Provider [phone] Encounter Details Date Type Department Care Team [...] on filedocumented in this encounter Care Teams Wafer Batter Mixer Relationship Specialty Start Date End Date Analisa [place] [address] PCP - General 11/30/22 documented as of this encounter
--- OUTSIDE RECORDS SUMMARY | 2024-08-14 12:12 | XMS_ITS | Encounter Summary ---
Author Organization [facility] Address [facility] [address] Care Team Providers Care Shearing Supervisor Name Role Phone Analisa Martinez Primary Care Provider [phone] Encounter Details Date Type Department Care Team (Latest Contact Info) Description 12/25/2022 7:58 AM EDT - 12/25/2022 11:59 PM EDT Hospital [place] [address] [facility] OBSTETRICS [place] [address] Previous delivery affecting , antepartum; Dehiscence of [...] by mouth daily. 05/24/2023 vitamin 27 & qnstsqb-xkyl-YL 60 mg iron-1 mg Tablet Take 1 [...] who have questions, please contact the health tire care manager that requested your imaging first. ? Monika Lindsay, Staff Physician Electronically Signed Final Report ?? 12/25/2022 11:23 am Narrative 12/25/2022 11:24 AM EDT OBSTETRICS REPORT ?(Signed Final 12/25/2022 11:23 am) PATIENT INFO: ID #: ? [id number] ?: ??[birth year] (27 yrs)(F) Name: ? DENISE JULIAN ? Visit Date: 12/25/2022 08:38 am PERFORMED BY: Performed By: ? Marcela Edward RDMS Attending: ?Monika Lindsay MD Referred By: ?TAN SANCHES Location: ? [place] SERVICE(S) PROVIDED: [facility] - Detailed Morphology - [id number] ? 76533 UOBTVCER - Transvaginal ??2nd Trimester - ?45924 Cervical Length - [id number] INDICATIONS: 20 weeks gestation of ?Z3A.20 History [...] Arch: ? Visualized SVC: ? Visualized Cardiac [place]: ?Visualized Diaphragm: ? Visualized 3 Vessel View: [...] 12/25/2022 11:23 am) PATIENT INFO: ID #: [id number] : [birth year] (27 yrs)(F) Name: DENISE JULIAN Visit Date: 12/25/2022 08:38 am PERFORMED BY: Performed By: Marcela Edward RDMS Attending: Monika Lindsay MD Referred By: TAN SANCHES Location: [place] SERVICE(S) PROVIDED: [facility] - Detailed Morphology - [id number] UOBTVCER - Transvaginal 2nd Trimester - 40604 Cervical Length - [id number] INDICATIONS: 20 weeks gestation of Z3A.20 History [...] Visualized Ductal Arch: Visualized SVC: Visualized Cardiac [place]: Visualized Diaphragm: Visualized 3 Vessel View: Visualized [...] who have questions, please contact the health tire care manager that requested your imaging first. 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
--- OUTSIDE RECORDS SUMMARY | 2024-08-14 12:12 | XMS_ITS | Encounter Summary ---
Author Organization [facility] [place] [address] Care Team Providers Care Costume Shop Manager Name Role Phone Melody Koenig MD Primary Care Provider [phone] Reason for Referral * Consultation (Routine) - Closed Specialty Diagnoses / Procedures Referred By Contac t Referred To Contact Obstetrics and Gynecology Diagnoses History of uterine scar from previous surgery Encounter for supervision of normal , antepartum, unspecified Tova Teran CNM [address] [place] [address] [address] [place] [address] [facility] [employer] [address] [place] [address] Referral ID Status Reason Start Date Expiration Date V isits Requested Visits Authorized [id number] Closed Consult, Test & Treat PCP Updated and/or Approved 10/30/2022 10/30/2023 6 6 Encounter Details Date Type Department Care Team (Late st Contact Info) Description 10/30/2022 Transcribe Orders eDH Incoming Referrals [phone] Tova Teran CNM [address] [place] [address] [address] [place], [place] [id number] History of uterine scar from previous surgery; [...] unspecified documented in this encounter Care Teams Costume Shop Manager Relationship Specialty Start Date End Date Melody Koenig MD [address] [place] [address] PCP - General Family Medicine 10/30/22 11/29/22 documented as of this encounter
--- OUTSIDE RECORDS SUMMARY | 2024-08-14 12:12 | XMS_ITS | Encounter Summary ---
Author Organization [facility] [address] Care Team Providers Care Panel Installer Name Role Phone Analisa Martinez Primary Care Provider [phone] Reason for Visit * Reason Comments Routine Visit Encounter Details Date Type Department Care Team (Late st Contact Info) Description 02/19/2023 11:00 AM EDT Routine Obstetrics [place] [address] Casey Armendariz MD [facility] [address] [place] [address] GA: 28w6d Social History Tobacco Use Types [...] applicable documented in this encounter Care Teams Panel Installer Relationship Specialty Start Date End Date Analisa [place] [address] PCP - General 11/30/22 documented as of this encounter
--- OUTSIDE RECORDS SUMMARY | 2024-08-14 12:12 | XMS_ITS | Encounter Summary ---
Author Organization [facility] [place] [address] Care Team Providers Care Weigh And Charge Worker Name Role Phone Analisa Martinez Primary Care Provider [phone] Encounter Details Date Type Department Care Team (Late st Contact Info) Description 12/25/2022 9:00 AM EDT Office Visit Obstetrics [place] [address] Kate Lindsay MD [facility] [address] [place] [address] Dehiscence of old uterine scar with extension [...] contractions. Plans to get all care at [facility], and to deliver here. Plan f/u visit [...] who have questions, please contact the health caretaker grounds that requested your imaging first. ?Fide Haas, Staff Physician Electronically Signed Final Report ?? 02/19/2023 10:22 am Narrative 02/19/2023 10:22 AM EDT OBSTETRICS REPORT ?(Signed Final 02/19/2023 10:22 am) PATIENT INFO: ID #: ? [id number] ?: ??[birth year] (27 yrs)(F) Name: ? DENISE YOUNG ? Visit Date: 02/19/2023 10:09 am PERFORMED BY: Performed By: ? Lima Cummins RDMS Attending: ?Waldo MENESES, Fide Weir Referred By: ?Kate LINDSAY Location: ? [place] SERVICE(S) PROVIDED: UOBFOL - Efw - Growth ??- Brown - [id number] ?28232 UOBTVCER - Transvaginal ??2nd Trimester - ?60090 Cervical Length - [id number] INDICATIONS: 28 weeks gestation of ?Z3A.28 h/o [...] 02/19/2023 10:22 am) PATIENT INFO: ID #: [id number] : [birth year] (27 yrs)(F) Name: DENISE JULIAN Visit Date: 02/19/2023 10:09 am PERFORMED BY: Performed By: Lima Cummins RDMS Attending: Fide Haas MD Referred By: Kate LINDSAY Location: [place] SERVICE(S) PROVIDED: UOBFOL - Efw - Growth - Brown - [id number] 64210 UOBTVCER - Transvaginal 2nd Trimester - 60644 Cervical Length - [id number] INDICATIONS: 28 weeks gestation of Z3A.28 h/o [...] who have questions, please contact the health caretaker grounds that requested your imaging first. Fide Haas, [...] complication documented in this encounter Care Teams Weigh And Charge Worker Relationship Specialty Start Date End Date Analisa Martinez PA [address] [place] [address] PCP - General 11/30/22 documented as of this encounter
--- OUTSIDE RECORDS SUMMARY | 2024-08-14 12:12 | XMS_ITS | Encounter Summary ---
Author Organization [facility] [place] [address] Care Team Providers Care Adventure Therapist Name Role Phone Analisa Martinez Primary Care Provider [phone] Encounter Details Date Type Department Care Team (Late st Contact Info) Description 02/16/2023 Orders Only Obstetrics [place] [address] Nitza Murguia MD [facility] OBSTETRICS [place] [address] Elevated glucose tolerance test (Primary Dx) Social [...] test documented in this encounter Care Teams Adventure Therapist Relationship Specialty Start Date End Date Analisa Martinez PA [address] [place] [address] PCP - General 11/30/22 documented as of this encounter
--- OUTSIDE RECORDS SUMMARY | 2024-08-14 12:12 | XMS_ITS | Encounter Summary ---
[place] [address] Care Team Providers Care Mushroom Packer Name Role Phone Analisa Martinez Primary Care Provider [phone] Encounter Details Date Type Department Care Team (Late st Contact Info) Description 02/16/2023 External Results Obstetrics [place] [id number] Macarena Priest, RN Social History Tobacco Use [...] on filedocumented in this encounter Care Teams Mushroom Packer Relationship Specialty Start Date End Date Analisa Martinez PA [address] [place] [address] PCP - General 11/30/22 documented as of this encounter
--- OUTSIDE RECORDS SUMMARY | 2024-08-14 12:12 | XMS_ITS | Encounter Summary ---
Author Organization [facility] Address [facility] [place] [address] Care Team Providers Care Superintendent Generating Plant Name Role Phone Analisa Martinez Primary Care Provider [phone] Encounter Details Date Type Department Care Team [...] on filedocumented in this encounter Care Teams Superintendent Generating Plant Relationship Specialty Start Date End Date Analisa Martinez [place] [address] PCP - General 11/30/22 documented as of this encounter
--- OUTSIDE RECORDS SUMMARY | 2024-08-14 12:12 | XMS_ITS | Encounter Summary ---
Author Organization [facility] Address [facility] [place] [address] Care Team Providers Care Waste Cotton Cleaner Name Role Phone Analisa Martinez Primary Care Provider [phone] Encounter Details Date Type Department Care Team (Latest Contact Info) Description 11/30/2022 3:00 PM EST - 11/30/2022 11:59 PM [facility] Hospital [place] [address] Rosa Santiago MD [facility] OBSTETRICS [place] [address] Back pain affecting in second trimester Discharge [...] by mouth daily. 05/24/2023 vitamin 27 & [id number] 60 mg iron-1 mg Tablet Take 1 [...] have questions, please contact the health care professionals that requested your imaging first. ? Nitza Murguia, Data Deliverables Manager Electronically Signed Corrected Final Report ??11/30/2022 05:04 pm Narrative 11/30/2022 3:52 PM EST OBSTETRICS REPORT ? (Corrected Final 11/30/2022 05:04 pm) PATIENT INFO: ID #: ? [id number] ?: ??[birth year] (27 yrs)(F) Name: ? DENISE YOUNG ? Visit Date: 11/30/2022 03:34 pm PERFORMED BY: Performed By: ? Lima Cummins RDMS Attending: ?Shantal MENESES, Nitza Whittington Referred By: ?ROSA SANTIAGO Location: ? [place] SERVICE(S) PROVIDED: UOBLIM - Transabdominal - Maria - [id number] ?[id number] INDICATIONS: 17 weeks gestation of ?Z3A.17 15 [...] 11/30/2022 05:04 pm) PATIENT INFO: ID #: [id number] : [birth year] (27 yrs)(F) Name: DENISE JULIAN Visit Date: 11/30/2022 03:34 pm PERFORMED BY: Performed By: Lima Cummins RDMS Attending: Nitza Murguia MD Referred By: ROSA SANTIAGO Location: [place] SERVICE(S) PROVIDED: UOBLIM - Transabdominal - Maria - [id number] INDICATIONS: 17 weeks gestation of Z3A.17 15 [...] have questions, please contact the health care professionals that requested your imaging first. Nitza Murguia, Data Deliverables Manager Electronically Signed Corrected Final Report 11/30/2022 05:04 pm Rosa Santiago MD IMG US OB ORDERABL ES documented in this encounter Visit Diagnoses Diagnosis Back pain affecting in second trimester documented in this encounter Care Teams Waste Cotton Cleaner Relationship Specialty Start Date End Date Analisa Martinez PA [address] [place] [address] PCP - General 11/30/22 documented as of this encounter
--- OUTSIDE RECORDS SUMMARY | 2024-08-14 12:12 | XMS_ITS | Encounter Summary ---
Author Organization [facility] Address [address] [place] [address] Care Team Providers Care Human Resources Clerk Name Role Phone Joanna Alcaraz NP Primary Care Provider [phone] Encounter Details Date Type Department Care Team (Late st Contact Info) Description 10/29/2022 Lab Requisition [facility] Pathology & Laboratory Medicine - Main [address] [address] Outr Resulting Lab, Provider Social History Tobacco [...] gonorrhoeae Result Negative Negative 10/30/2022 13:39 EST [facility] Chlamydia trachomatis Result Negative Negative 10/30/2022 13:39 EST [facility] Swab ENTIRE VAGINA / Unknown 10/29/2022 9:00 EST 10/29/2022 21:54 EST us Provider Outr Resulting Lab MICROBIOLOGY - GENER AL ORDERABLES Final Result [facility] [address] [place] [address] documented in this encounter Visit Diagnoses Not on filedocumented in this encounter Care Teams Human Resources Clerk Relationship Specialty Start Date End Date Joanna Alcaraz NP [address] [place] [phone] PCP - General 08/23/19 documented as of this encounter
--- OUTSIDE RECORDS SUMMARY | 2024-08-14 12:12 | XMS_ITS | Encounter Summary ---
Author Organization [facility] Address [address] [place] [address] Care Team Providers Care Assistant Womens Volleyball Coach Name Role Phone Joanna Alcaraz NP Primary Care Provider [phone] Encounter Details Date Type Department Care Team (Late st Contact Info) Description 10/29/2022 Lab Requisition [facility] Pathology & Laboratory Medicine - [facility] [address] [place], [place] [address] Outr Resulting Lab, Provider Social History Tobacco [...] documented in this encounter Results * HOLD [facility] (10/29/2022 10:23 EST) Hold Hold 10/29/2022 18:[address] [facility] Blood VENOUS BLOOD / Unknown 10/29/2022 10:23 EST 10/29/2022 17:12 EST us Provider Outr Resulting Lab LAB INFO SERVICE AND SUPPORT & PHONE RESULT Final Result [facility] [address] [place] [address] * HOLD [facility]ST (10/29/2022 10:23 EST) Hold Hold 10/29/2022 18:[address] [facility] Blood VENOUS BLOOD / Unknown 10/29/2022 10:23 EST 10/29/2022 17:12 EST us Provider Outr Resulting Lab LAB INFO SERVICE AND SUPPORT & PHONE RESULT Final Result Performing Organization Address [facility]/ZIP Co de Phone Number [facility] [address] [place] [address] * HEPATITIS B SURFACE ANTIGEN (10/29/2022 10:23 EST) Hep B Surface Ag Negative Negative 10/30/2022 9:[address] [facility] Blood VENOUS BLOOD / Unknown 10/29/2022 10:23 EST 10/29/2022 17:12 EST us Provider Outr Resulting Lab CHEMISTRY & BLOOD GA S ORDERABLES Final Result Performing Organization Address [facility]/ZIP Co de Phone Number [facility] [address] [place] [address] * HEPATITIS C AB W REFLEX TO HCV RNA BY PCR (10/29/2022 10:23 EST) Hep C Antibody Negative Negative 10/30/2022 10:[address] [facility] Blood VENOUS BLOOD / Unknown 10/29/2022 10:23 EST 10/29/2022 17:12 EST us Provider Outr Resulting Lab CHEMISTRY & BLOOD GA S ORDERABLES Final Result [facility] [address] [place] [address] documented in this encounter Visit Diagnoses Not on filedocumented in this encounter Care Teams Assistant Womens Volleyball Coach Relationship Specialty Start Date End Date Joanna Alcaraz NP [address] [place] [phone] PCP - General 08/23/19 documented as of this encounter
--- OUTSIDE RECORDS SUMMARY | 2024-08-14 12:12 | XMS_ITS | Encounter Summary ---
Author Organization [facility] Address [facility] [place] [address] Care Team Providers Care Tree Killer Name Role Phone Melody Koenig MD Primary Care Provider [phone] Reason for Visit * Reason Comments TeleHealth * Consultation (Routine) - Closed Specialty Diagnoses / Procedures Referred By Contac t Referred To Contact Obstetrics and Gynecology Diagnoses History of uterine scar from previous surgery Encounter for supervision of normal , antepartum, unspecified [address] [place] [address] [facility] Superintendent Custodian Janitor [address] [place] [address] Referral ID Status Reason Start Date Expiration Date V isits Requested Visits Authorized [id number] Closed Consult, Test & Treat PCP Updated and/or Approved 10/30/2022 10/30/2023 6 6 Encounter Details Date Type Department Care Team (Latest Contact Info) Description 11/17/2022 11:15 AM EST TH Visit (TeleHealth) Obstetrics [place] [address] Tan Sanches MD [facility] [address] OBSTETRICS [place] [address] Previous delivery affecting , antepartum; [...] documented in this encounter Progress Notes * Ciat Elaine LNA - 11/17/2022 11:15 AM EST ____ Patient not reached __x__Patient reached and the following information was reviewed/obtained per protocol. _x__Confirmed patient name and date of _x__Confirmed tele med appt (Virtual visit) is downloaded and functioning _x__Confirmed location of patient- TeleVisit is taking place in [place]_x_ [place]__[place]__ [place]__ If not on [facility], working on signing up for my Confirmed has completed any pre-visit questionnaires If has not received required previsit questionnaires, send via [facility] __x_Reviewed medications, allergies, pharmacy, pain/depression, education [...] have questions, please contact the health rn intensive care unit that requested your imaging first. ? Monika Lindsay, Staff Physician Electronically Signed Final Report ?? 12/25/2022 11:23 am Narrative 12/25/2022 11:24 AM EDT OBSTETRICS REPORT ?(Signed Final 12/25/2022 11:23 am) PATIENT INFO: ID #: ? [id number] ?: ??[birth year] (27 yrs)(F) Name: ? DENISE YOUNG ? Visit Date: 12/25/2022 08:38 am PERFORMED BY: Performed By: ? Marcela Edward RDMS Attending: ?Monika Lindsay MD Referred By: ?TAN SANCHES Location: ? [place] SERVICE(S) PROVIDED: [facility] - Detailed Morphology - [id number] ? [id number] UOBTVCER - Transvaginal ??2nd Trimester - ?00881 Cervical Length - [id number] INDICATIONS: 20 weeks gestation of ?Z3A.20 History [...] Arch: ? Visualized SVC: ? Visualized Cardiac [place]: ?Visualized Diaphragm: ? Visualized 3 Vessel View: [...] 12/25/2022 11:23 am) PATIENT INFO: ID #: [id number] : [birth year] (27 yrs)(F) Name: DENISE JULIAN Visit Date: 12/25/2022 08:38 am PERFORMED BY: Performed By: Marcela Edward RDMS Attending: Monika Lindsay MD Referred By: TAN SANCHES Location: [place] SERVICE(S) PROVIDED: [facility] - Detailed Morphology - [id number] UOBTVCER - Transvaginal 2nd Trimester - 78192 Cervical Length - [id number] INDICATIONS: 20 weeks gestation of Z3A.20 History [...] Visualized Ductal Arch: Visualized SVC: Visualized Cardiac [place]: Visualized Diaphragm: Visualized 3 Vessel View: Visualized [...] have questions, please contact the health rn intensive care unit that requested your imaging first. Monika Lindsay, [...] delivered documented in this encounter Care Teams Tree Killer Relationship Specialty Start Date End Date Melody Koenig MD [address] [place] [address] PCP - General Family Medicine 10/30/22 11/29/22 documented as of this encounter
--- OUTSIDE RECORDS SUMMARY | 2024-08-14 12:12 | XMS_ITS | Encounter Summary ---
Author Organization [facility] [place] [address] Care Team Providers Care Race Car Driver Name Role Phone Melody Koenig MD Primary Care Provider Encounter Details Date Type Department Care Team (Late st Contact Info) Description 11/26/2022 Notes Only Obstetrics [place] [address] Fide Haas MD [facility] [place] [address] Social History Tobacco Use Types Packs/Day Years [...] on filedocumented in this encounter Care Teams Race Car Driver Relationship Specialty Start Date End Date Melody Koenig MD [address] [place], [place] [id number] PCP - General Family Medicine 10/30/22 11/29/22 documented as of this encounter
--- OUTSIDE RECORDS SUMMARY | 2024-08-14 12:12 | XMS_ITS | Encounter Summary ---
Author Organization [facility] Address [facility] [place] [address] Care Team Providers Care Tourist Camp Attendant Name Role Phone Analisa Martinez Primary Care Provider [phone] Encounter Details Date Type Department Care Team [...] on filedocumented in this encounter Care Teams Tourist Camp Attendant Relationship Specialty Start Date End Date Analisa [place] [address] PCP - General 11/30/22 documented as of this encounter
--- OUTSIDE RECORDS SUMMARY | 2024-08-14 12:12 | XMS_ITS | Encounter Summary ---
[place] [address] Care Team Providers Care Refrigerating Technician Name Role Phone Analisa Martinez Primary Care Provider [phone] Encounter Details Date Type Department Care Team (Late st Contact Info) Description 04/01/2023 Telephone Obstetrics [place] [address] Loida Hall RN Social History [...] on filedocumented in this encounter Care Teams Refrigerating Technician Relationship Specialty Start Date End Date Analisa Martinez PA [address] [place] [address] PCP - General 11/30/22 documented as of this encounter
--- OUTSIDE RECORDS SUMMARY | 2024-08-14 12:12 | XMS_ITS | Encounter Summary ---
[place] [address] Care Team Providers Care Master Rigger Name Role Phone Analisa Martinez Primary Care Provider Encounter Details Date Type Department Care Team (Late st Contact Info) Description 03/18/2023 Telephone Obstetrics [place] [phone] Loida Hall RN Social History Tobacco Use [...] on filedocumented in this encounter Care Teams Master Rigger Relationship Specialty Start Date End Date Analisa Martinez PA [address] [place] [address] PCP - General 11/30/22 documented as of this encounter
--- OUTSIDE RECORDS SUMMARY | 2024-08-14 12:12 | XMS_ITS | Encounter Summary ---
Author Organization [facility] [place] [address] Care Team Providers Care Learning Consultant Name Role Phone Analisa Martinez Primary Care Provider [phone] Reason for Visit * Reason Comments Routine Visit Encounter Details Date Type Department Care Team (Late st Contact Info) Description 03/10/2023 4:30 PM EDT Routine Obstetrics [place] [address] Casey Armendariz MD [facility] DR OBSTETRICS [place] [address] GA: [id number] Social History Tobacco Use Types [...] disorders documented in this encounter Care Teams Learning Consultant Relationship Specialty Start Date End Date Analisa Martinez [place] [address] PCP - General 11/30/22 documented as of this encounter
--- OUTSIDE RECORDS SUMMARY | 2024-08-14 12:12 | XMS_ITS | Encounter Summary ---
Author Organization [facility] [place] [address] Care Team Providers Care Director Of Therapy Services Name Role Phone Analisa Martinez Primary Care Provider [phone] Encounter Details Date Type Department Care Team (Late st Contact Info) Description 03/17/2023 Telephone Obstetrics [place] [address] Vilma Collins MD [facility] DR OBSTETRICS & [place] [address] Social History Tobacco Use Types Packs/Day Years [...] applicable documented in this encounter Care Teams Director Of Therapy Services Relationship Specialty Start Date End Date Analisa Martinez PA [address] [place] [address] PCP - General 11/30/22 documented as of this encounter
--- OUTSIDE RECORDS SUMMARY | 2024-08-14 12:13 | XMS_ITS | Encounter Summary ---
Author Organization [facility] Address [address] [place] [address] Care Team Providers Care Electrician Deck Name Role Phone Noris Tran Primary Care Provider [phone] Encounter Details Date Type Department Care Team (Late st Contact Info) Description 03/06/2013 Results Only Imaging [facility] [phone] Noris Tran RPA-C [address] [place], [place] [id number] Social History Tobacco Use Types Packs/Day Years [...] on filedocumented in this encounter Care Teams Electrician Deck Relationship Specialty Start Date End Date Noris Tran RPA-C [address] [place] [address] PCP - General 03/06/13 08/22/19 documented as of this encounter
--- OUTSIDE RECORDS SUMMARY | 2024-08-14 12:13 | XMS_ITS | Patient Health Record ---
Author Organization [facility] Address [address] [place] [address] Care Team Providers Care Eviscerator Name Role Phone DESTINI DAMON MD Primary [...] Insured Coverage Start Date Coverage End Date [facility] [address] [place], [place] [id number] December, Child - Insured has Financial Responsibility [place] [address] DENISE MENDEZ Self - patient is the insured MEDICAL (GENERAL) HISTORY Medical History History ICD Code Anxiety PTSD Fatigue Surgical History Surgery Date(Month/Year)
[2024-08-14 12:15] VITALS: BP 117/82; PULSE 98; RESP 18; TEMP 36.6; O2SAT 98
--- NOTE | 2024-08-14 13:15 | DI.RAD_ITS ---
Exam(s) XR CHEST 2V PA LATERAL EXAM: XR CHEST 2V PA LATERAL CLINICAL HISTORY: shortness of breath TECHNIQUE: 2D digital imaging was performed. Two views. COMPARISON: CT CT CHEST PE CTA from 05/30/2023 FINDINGS: HEART: Normal size. Aorta: Not dilated. PULMONARY VASCULATURE: Normal. MEDIASTINUM: Unremarkable. LUNGS: Clear. PLEURAL SPACE: No pleural effusion or pneumothorax. BONE:Unremarkable for age. SOFT TISSUES: Unremarkable. IMPRESSION: No acute abnormality. DATA REPOSITORY: RADIATION DOSE DELIVERED:
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
[2024-08-14 14:01] LABS: COVID-19 PCR Negative (Negative); Influenza A PCR Negative (Negative); Influenza B PCR Negative (Negative); RSV PCR Negative (Negative)
[2024-08-14 14:03] LABS: Source Nasopharynx
[2024-08-14] MEDS: Ibuprofen 600 MG TAB PO (14:27)
[2024-08-14 14:43] VITALS: BP 119/80; PULSE 78; RESP 16; TEMP 36.8; O2SAT 98
== END 2024-08-14 14:43 | disposition home or self-care (01) ==
PROVIDERS: Emergency Provider Physician Assistant; PCP Family Medicine
DX: R05.9 Cough, unspecified (principal); J02.9 Acute pharyngitis, unspecified; F17.210 Nicotine dependence, cigarettes, uncomplicated
CPT/HCPCS: 87637; 99284; 71046; 99283

== ENCOUNTER 2024-11-03 10:44 | Emergency (ER) | payer OTHER, SELFPAY ==
[2024-11-03 10:46] VITALS: BP 101/65; PULSE 99; RESP 18; TEMP 36.6; O2SAT 94
--- NOTE | 2024-11-03 11:30 | DI.RAD_ITS ---
Exam(s) XR WRIST LT COMP NAVICULAR EXAM: XR WRIST LT COMP NAVICULAR CLINICAL HISTORY: FOOSH, tender radius and navicular. TECHNIQUE: 2D digital imaging was performed. Three views. COMPARISON: CR XR WRIST LT COMPLETE from 10/20/2023 FINDINGS: BONES: There is a nondisplaced fracture of the distal radius which extends to the articular surface. No additional fractures. The navicular appears intact. No bony destructive lesion is seen. JOINTS: The carpal bones are normally aligned. SOFT TISSUE: Normal. IMPRESSION: Nondisplaced intra-articular fracture of the distal radius. DATA REPOSITORY: RADIATION DOSE DELIVERED:
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
[2024-11-03] MEDS: Ibuprofen 600 MG TAB PO (11:49)
[2024-11-03] MEDS: Acetaminophen 325 MG TAB 650 MG PO (11:49)
[2024-11-03 12:41] VITALS: PULSE 78; RESP 14; O2SAT 97
== END 2024-11-03 12:42 | disposition home or self-care (01) ==
PROVIDERS: Emergency Provider Student in an Organized Health Care Education/Training Program; PCP Family Medicine
DX: S52.572A Other intraarticular fracture of lower end of left radius, initial encounter for closed fracture (principal); F17.210 Nicotine dependence, cigarettes, uncomplicated; Z86.73 Personal history of transient ischemic attack (TIA), and cerebral infarction without residual deficits; W00.0XXA Fall on same level due to ice and snow, initial encounter; Y93.21 Activity, ice skating; Y92.330 Ice skating rink (indoor) (outdoor) as the place of occurrence of the external cause
CPT/HCPCS: 29125; 99283; 73110

== ENCOUNTER 2024-11-06 15:26 | Emergency (ER) | payer OTHER, SELFPAY ==
[2024-11-06 15:45] VITALS: BP 124/82; PULSE 86; RESP 16; TEMP 36.8; O2SAT 98
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
== END 2024-11-06 16:16 | disposition home or self-care (01) ==
LOC: ER 17:14
PROVIDERS: Emergency Provider Physician Assistant; PCP Family Medicine
DX: S52.502A Unspecified fracture of the lower end of left radius, initial encounter for closed fracture (principal); V00.211A Fall from ice-skates, initial encounter
CPT/HCPCS: 29125; 99283

== ENCOUNTER 2024-11-13 15:23 | Outpatient (CLI) | payer OTHER, SELFPAY ==
--- NOTE | 2024-11-13 14:15 | DI.RAD_ITS ---
Exam(s) XR WRIST LT COMPLETE EXAM: XR WRIST LT COMPLETE CLINICAL HISTORY: F/U LEFT DISTAL RAD FX. TECHNIQUE: 2D digital imaging was performed. COMPARISON: No exams were available for comparison FINDINGS: 3 views No evidence of fracture or dislocation nor significant ulnar variance. Scaphoid and scapholunate dis tance are normal. No degenerative changes. No erosions. Bone density normal. No osseous lesions IMPRESSION: No significant osseous findings in the left wrist. DATA REPOSITORY: RADIATION DOSE DELIVERED:
== END 2024-11-13 15:24 | disposition home or self-care (01) ==
LOC: DIORS 15:24
PROVIDERS: PCP Family Medicine; Visit Provider Physician Assistant
DX: S52.502D Unspecified fracture of the lower end of left radius, subsequent encounter for closed fracture with routine healing (principal); X58.XXXD Exposure to other specified factors, subsequent encounter
CPT/HCPCS: 73110

== ENCOUNTER 2024-12-11 15:28 | Outpatient (CLI) | payer OTHER, SELFPAY ==
--- NOTE | 2024-12-11 15:15 | DI.RAD_ITS ---
Exam(s) XR WRIST LT COMPLETE EXAM: XR WRIST LT COMPLETE CLINICAL HISTORY: F/U L DISTAL RAD FX. TECHNIQUE: 2D digital imaging was performed. Three views. COMPARISON: CR XR WRIST LT COMP NAVICULAR from 11/03/2024 CR XR WRIST LT COMPLETE from 11/13/2024 FINDINGS: BONES: Linear area of sclerosis noted in the distal radius corresponding to the healing previously no adelfo fracture. No new abnormalities. No bony destructive lesion is seen. JOINTS: The carpal bones are normally aligned. SOFT TISSUE: Normal. IMPRESSION: healing distal radial fracture. DATA REPOSITORY: RADIATION DOSE DELIVERED:
== END 2024-12-11 15:29 | disposition home or self-care (01) ==
LOC: DIORS 15:28
PROVIDERS: PCP Family Medicine; Referring Provider Family Medicine; Visit Provider Student in an Organized Health Care Education/Training Program
DX: S52.572D Other intraarticular fracture of lower end of left radius, subsequent encounter for closed fracture with routine healing (principal); X58.XXXD Exposure to other specified factors, subsequent encounter
CPT/HCPCS: 73110

== ENCOUNTER 2025-01-29 15:36 | Outpatient (CLI) | payer OTHER, SELFPAY ==
--- NOTE | 2025-01-29 14:37 | DI.RAD_ITS ---
Exam(s) XR WRIST LT COMPLETE EXAM: XR WRIST LT COMPLETE CLINICAL HISTORY: F/U L DISTAL RAD FX. TECHNIQUE: 2D digital imaging was performed. Three views. COMPARISON: CR XR WRIST LT COMPLETE from 12/11/2024 FINDINGS: BONES: Has been continued healing of the distal radial fracture which is not barely visible. No bony destructive lesion is seen. JOINTS: The carpal bones are normally aligned. SOFT TISSUE: Normal. IMPRESSION: Continued fracture healing. DATA REPOSITORY: RADIATION DOSE DELIVERED:
== END 2025-01-29 15:37 | disposition home or self-care (01) ==
LOC: DIORS 15:37
PROVIDERS: PCP Nurse Practitioner Family; Visit Provider Student in an Organized Health Care Education/Training Program
DX: S52.502A Unspecified fracture of the lower end of left radius, initial encounter for closed fracture (principal)
CPT/HCPCS: 73110

== ENCOUNTER 2025-03-26 14:54 | Outpatient (CLI) | payer BC, SELFPAY ==
--- NOTE | 2025-03-26 14:45 | DI.RAD_ITS ---
Exam(s) XR WRIST LT COMPLETE EXAM: XR WRIST LT COMPLETE CLINICAL HISTORY: left distal radius fracture. TECHNIQUE: 2D digital imaging was performed. Three views. COMPARISON: CR XR WRIST LT COMPLETE from 12/11/2024 CR XR WRIST LT COMPLETE from 01/29/2025 FINDINGS: BONES: The previously noted distal radial fracture is no longer visible, healed with out residual deformity. No acute fracture is present. No bony destructive lesion is seen. JOINTS: The carpal bones are normally aligned. SOFT TISSUE: Normal. IMPRESSION: Complete healing of the distal radial fracture. DATA REPOSITORY: RADIATION DOSE DELIVERED:
== END 2025-03-26 14:55 | disposition home or self-care (01) ==
LOC: DIORS 14:55
PROVIDERS: PCP Nurse Practitioner Family; Visit Provider Physician Assistant
DX: S52.502A Unspecified fracture of the lower end of left radius, initial encounter for closed fracture (principal)
CPT/HCPCS: 73110

== ENCOUNTER 2025-06-12 03:34 | Outpatient (CLI) | payer OTHER, SELFPAY ==
--- NOTE | 2025-06-12 05:15 | DI.MRI_ITS ---
Exam(s) MR UPPER JOINT LT WO EXAM: MR UPPER JOINT LT WO CLINICAL HISTORY: PAIN,lt distal radius fx,lt dequervains tenosynovitis,m65.4,s52.502a. TECHNIQUE: Multiplanar multisequence MRI was performed. COMPARISON: Comparison examinations are from 11/03/2024 through 03/26/2025. FINDINGS: BONES: There is no fracture or contusion pattern. The distal radial fracture has healed. JOINTS: The radiocarpal joint is unremarkable. The carpal joints are unremarkable. TENDONS: Flexors: Unremarkable. Extensors: The abductor pollicis longus tendon appears mildly thickened. The extensor pollicis brevis tendon appears within normal limits. MUSCLES: Unremarkable. MEDIAN NERVE: Unremarkable on this noncontrast examination. ULNAR NERVE: Unremarkable on this noncontrast examination. SOFT TISSUES: Unremarkable. LIGAMENTS: Unremarkable. TRIANGULAR FIBROCARTILAGE: Unremarkable. OTHER: There is a 6 x 5 mm cyst at the anterior aspect of the wrist at the radiocarpal joint suspicious for a ganglion cyst. IMPRESSION: 1. There is mild thickening of the abductor pollicis longus tendon. No fluid is seen surrounding the tendon. This may represent a tendinopathy. 2. 6 x 5 mm cyst at the anterior aspect of the radiocarpal joint which may represent a ganglion cyst. DATA REPOSITORY:
== END 2025-06-12 03:54 ==
LOC: DI 03:34
PROVIDERS: PCP Nurse Practitioner Family; Visit Provider Student in an Organized Health Care Education/Training Program
DX: S52.502A Unspecified fracture of the lower end of left radius, initial encounter for closed fracture (principal); M65.4 Radial styloid tenosynovitis [de Quervain]
CPT/HCPCS: 73221

== ENCOUNTER 2025-08-04 21:37 | Emergency (ER) | payer BC, SELFPAY ==
[2025-08-04 21:39] VITALS: BP 123/73; PULSE 93; RESP 18; TEMP 36.3; O2SAT 100
[2025-08-04] MEDS: Ketorolac 15 MG/ML VIAL IM (21:51)
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
--- NOTE | 2025-08-04 22:07 | DI.RAD_ITS ---
Exam(s) XR SHOULDER LT COMPLETE 2+V EXAM: XR SHOULDER LT COMPLETE 2+V CLINICAL HISTORY: pain s/p fall. TECHNIQUE: 2D digital imaging was performed of the left shoulder. Four images were obtained. AP, Grashey, Y-view and axillary views were obtained. COMPARISON: No exams were available for comparison FINDINGS: BONES: No acute fracture is present. No bony destructive lesion is seen. JOINTS: No dislocation present. SOFT TISSUE: Normal. IMPRESSION: 1. Unremarkable radiographs of the left shoulder. 2. The preliminary [facility] report was reviewed. DATA REPOSITORY: RADIATION DOSE DELIVERED:
--- NOTE | 2025-08-04 23:44 | DI.[facility]_ITS ---
PROCEDURE INFORMATION: Exam: XR Left Shoulder Exam date and time: 08/04/2025 9:59 PM Age: 29 years old Clinical indication: Other: Pain S/P fall TECHNIQUE: Imaging protocol: Radiologic exam of the left shoulder. Views: 2 or more views. COMPARISON: MR UPPER JOINT LT WO 06/12/2025 7:41 AM FINDINGS: Bones/joints: Normal. Soft tissues: Normal. IMPRESSION: No acute findings. Dictated and Authenticated by: Tello Epps MD. Orderin Rocio Henry MD
== END 2025-08-04 22:34 | disposition home or self-care (01) ==
PROVIDERS: Emergency Provider Emergency Medicine; PCP Nurse Practitioner Family
DX: S40.012A Contusion of left shoulder, initial encounter (principal); X58.XXXA Exposure to other specified factors, initial encounter
CPT/HCPCS: 99283; 99284; 96372; 73030; J1885

== ENCOUNTER 2025-08-06 09:52 | Emergency (ER) | payer BC, SELFPAY ==
[2025-08-06 09:59] VITALS: BP 111/73; PULSE 103; RESP 18; TEMP 36.7; O2SAT 98
--- NOTE | 2025-08-06 10:15 | RT.EKG_ITS ---
APPROVED REPORT Exam: Resting ECG Reason for Exam: L chest pain Patient Location: E HR:69 bpm ECG Measurements Heart Rate 69 AXIS OK 170 P 57 QRSd 88 QRS 55 QT 366 T 48 QTc 393 Conclusion Sinus rhythm...normal P axis, V-rate 60- 99 Probable left atrial enlargement...P >50mS, <-0.10mV V1 Low voltage, extremity and precordial leads...extremity<0.5mV, precordial<1.0mV Abnormal Q suggests anterior infarct...Q >30mS in V2-V4
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
[2025-08-06] MEDS: Acetaminophen 500 MG TAB 1000 MG PO (10:47)
[2025-08-06] MEDS: Cyclobenzaprine 10 MG TAB PO (10:47)
[2025-08-06] MEDS: Ketorolac 30 MG/ML VIAL IM (10:48)
[2025-08-06] MEDS: Lidocaine 5% Patch 1 PATCH TP (10:48)
--- NOTE | 2025-08-06 11:30 | DI.RAD_ITS ---
Exam(s) XR RIBS LT PA CHEST 3V EXAM: XR RIBS LT PA CHEST 3V CLINICAL HISTORY: L rib pain. TECHNIQUE: 2D digital imaging was performed. COMPARISON: CR XR CHEST 2V PA LATERAL from 08/14/2024 FINDINGS: Total five views: Left rib cage-four views: No left rib fractures identified. Chest-single view: Normal heart size. The mediastinum is not widened. Lungs are clear. No infiltrates nor pleural effusions. No evidence of pneumothorax. No fracture seen. IMPRESSION: No left rib fractures identified. No acute pulmonary findings. No evidence of pneumothorax. DATA REPOSITORY: RADIATION DOSE DELIVERED:
[2025-08-06 11:37] LABS: D-Dimer 563 ng/mlFEU (<500)
== END 2025-08-06 12:58 | disposition home or self-care (01) ==
PROVIDERS: Emergency Provider Physician Assistant; PCP Nurse Practitioner Family
DX: M54.6 Pain in thoracic spine (principal)
CPT/HCPCS: 99283; 99284; 96372; 36415; 71101; 93005; 85379; 93010; J1885